=== PATIENT | female | born 1950 | race Caucasian/White ===

== ENCOUNTER 2018-01-18 08:06 | Outpatient (REF) | payer MEDICARE, BC, SELFPAY ==
[2018-01-18 21:15] LABS: Cholesterol 226 mg/dL (50-200); HDL Cholesterol 54 mg/dL (40-60); LDL CHOLESTEROL 160 mg/dL (<100); Triglyceride 82 mg/dL (30-150)
== END 2018-01-18 08:26 ==
LOC: NCHCN 08:06
PROVIDERS: PCP Internal Medicine; Visit Provider Internal Medicine
DX: E78.5 Hyperlipidemia, unspecified (principal)
CPT/HCPCS: 80061; 83721

== ENCOUNTER 2020-01-03 08:51 | Outpatient (REF) | payer MEDICARE, BC, SELFPAY ==
[2020-01-03 22:45] LABS: Calculated LDL 104 mg/dL (<100); Cholesterol 174 mg/dL (<200); Glucose 103 mg/dL (74-106); HDL Cholesterol 48 mg/dL (40-60); Triglyceride 113 mg/dL (<150)
== END 2020-01-03 09:11 ==
LOC: NCHCN 08:51
PROVIDERS: PCP Internal Medicine; Visit Provider Internal Medicine
DX: E78.5 Hyperlipidemia, unspecified (principal)
CPT/HCPCS: 80061; 82947

== ENCOUNTER 2020-02-09 14:14 | Outpatient (REF) | payer MEDICARE, BC, SELFPAY ==
[2020-02-13 21:52] LABS: Patient Race White; SARS-CoV-2 RNA Undetected (Undetected); SARS-CoV-2 Specimen Source Nasal
== END 2020-02-09 14:34 ==
LOC: NCHCN 14:14
PROVIDERS: PCP Internal Medicine; Visit Provider Internal Medicine
DX: Z11.59 Encounter for screening for other viral diseases (principal)
CPT/HCPCS: U0003

== ENCOUNTER 2020-06-22 08:19 | Outpatient (REF) | payer MEDICARE, BC, SELFPAY ==
[2020-06-22 13:50] LABS: Glucose 100 mg/dL (74-106)
== END 2020-06-22 08:20 | disposition home or self-care (01) ==
LOC: NCHCN 08:19
PROVIDERS: PCP Internal Medicine; Visit Provider Internal Medicine
DX: R73.01 Impaired fasting glucose (principal)
CPT/HCPCS: 82947

== ENCOUNTER 2020-12-27 09:38 | Outpatient (REF) | payer MEDICARE, BC, SELFPAY ==
[2020-12-27 14:27] LABS: Anion Gap 4.8 mmol/L (3-11); BUN 18 mg/dL (7-18); CO2 30.2 mmol/L (21.0-32.0); CREATININE 0.8 mg/dL (0.55-1.02); Calculated LDL 141 mg/dL (<100); Chloride 106 mmol/L (98-107); Cholesterol 211 mg/dL (<200); Glucose 96 mg/dL (74-106); HDL Cholesterol 53 mg/dL (40-60); Potassium 4.4 mmol/L (3.5-5.1); Sodium 141 mmol/L (136-145); Triglyceride 86 mg/dL (<150)
[2020-12-27 14:45] LABS: Vitamin D 25 Total 39.3 ng/mL (30-100)
== END 2020-12-27 09:39 | disposition home or self-care (01) ==
LOC: NCHCN 09:38
PROVIDERS: PCP Internal Medicine; Visit Provider Internal Medicine
DX: R73.01 Impaired fasting glucose (principal); E78.5 Hyperlipidemia, unspecified; M81.0 Age-related osteoporosis without current pathological fracture
CPT/HCPCS: 80048; 80061; 82306

== ENCOUNTER 2023-01-23 13:40 | Outpatient (REF) | payer MEDICARE, SELFPAY ==
[2023-01-23 14:47] LABS: BUN 17 mg/dL (7-18); CREATININE 0.9 mg/dL (0.55-1.02); Calcium 9.5 mg/dL (8.5-10.1); Calculated LDL 142 mg/dL (<100); Chloride 105 mmol/L (98-107); Cholesterol 215 mg/dL (<200); Estimated GFR 67.08 (mL/min/1.73m2); Glucose 108 mg/dL (74-106); HDL Cholesterol 58 mg/dL (40-60); Potassium 4.5 mmol/L (3.5-5.1); Sodium 140 mmol/L (136-145); Triglyceride 79 mg/dL (<150)
[2023-01-23 15:09] LABS: Vitamin D 25 Total 33.5 ng/mL (30-100)
== END 2023-01-23 13:41 | disposition home or self-care (01) ==
LOC: NCHCN 13:40
PROVIDERS: PCP Internal Medicine; Visit Provider Family Medicine
DX: E78.5 Hyperlipidemia, unspecified (principal); R73.01 Impaired fasting glucose; Z00.00 Encounter for general adult medical examination without abnormal findings; E55.9 Vitamin D deficiency, unspecified
CPT/HCPCS: 80048; 80061; 82306

== ENCOUNTER 2023-04-07 12:54 | Outpatient (REF) | payer MEDICARE, SELFPAY ==
--- OUTSIDE RECORDS SUMMARY | 2023-04-07 12:56 | XMS_ITS | CCD ---
Author Name Unknown Address [address] [place] [address] [id number] Organization Unknown Address [address] [place], [place] [id number] Care Team Providers Care Road Worker Name Role Phone BURT HAGAN Attending Physician [phone] BURT HAGAN Roundmelinda (Secondary) Physici an [phone] Vital Signs Unknown or Not Available. Allergies Allergy Code Allergy Type Reaction Status MELATONIN 6711 Drug allergy RASH Active Procedures Unknown or Not Available. History of Immunizations Unknown or Not Available. Problems Unknown or Not Available. Results Unknown or Not Available. Active Medications Unknown or Not Available. Medications Administered During Visit Unknown or Not Available. Encounters Encounter Diagnosis Diagnosis Code Start Date Pain in right shoulder [id number] 3 Social History Smoking Status Code Start Date End Date Never smoker [id number] Patient Decision Aids Unknown or Not Available. Discharge Instructions You were admitted to [facility] on 07/22/2022 00:00 with a principal diagnosis of Pain in right shoulder You were discharged from [facility] on 07/22/2022 00:00 Should you have any questions prior to discharge, please contact a member of your healthcare team. If you have left the hospital and have any questions, please contact your primary care physician. Chief Complaint and Reason For Visit Unknown or Not Available. Function Status Unknown or Not Available. Plan of Care Unknown or Not Available. Referral/Transition of Care Unknown or Not Available.
--- OUTSIDE RECORDS SUMMARY | 2023-04-07 12:56 | XMS_ITS | CCD ---
Author Name Unknown Address [address] [place] [address] [id number] Organization Unknown Address [address] [place] [address] [phone] Care Team Providers Care Meat And Seafood Clerk Name Role Phone SCOOBY MITCHELL Attending Physician [phone] Vital Signs Unknown or Not Available. Allergies Allergy Code Allergy Type Reaction Status MELATONIN 6711 Drug allergy RASH Active Procedures Unknown or Not Available. History of Immunizations Unknown or Not Available. Problems Unknown or Not Available. Results Unknown or Not Available. Active Medications Unknown or Not Available. Medications Administered During Visit Unknown or Not Available. Encounters Encounter Diagnosis Diagnosis Code Start Date Other low back pain M5459 09/17/2022 Social History Smoking Status Code Start Date End Date Never smoker [id number] Patient Decision Aids Unknown or Not Available. Discharge Instructions You were admitted to [facility] on 09/17/2022 14:27 with a principal diagnosis of Other low back pain You were discharged from [facility] on 09/17/2022 13:38 Should you have any questions prior to [...]
--- OUTSIDE RECORDS SUMMARY | 2023-04-07 12:56 | XMS_ITS | CCD ---
Author Name Unknown Address [address] [place] [address] [id number] Organization Unknown Address [address] [place] [address] [id number] Care Team Providers Care Tobacco Packing Machine Operator Name Role Phone LENNY BHAT Attending Physician [phone] LENNY BHAT Rounding (Secondary) Physician [phone] Vital Signs Unknown or Not Available. Allergies Allergy Code Allergy Type Reaction Status MELATONIN 6711 Drug allergy RASH Active Procedures Unknown or Not Available. History of Immunizations Unknown or Not Available. Problems Unknown or Not Available. Results Unknown or Not Available. Active Medications Unknown or Not Available. Medications Administered During Visit Unknown or Not Available. Encounters Encounter Diagnosis Diagnosis Code Start Date Artificial knee joint present [id number] Social History Smoking Status Code Start Date End Date Never smoker [id number] Patient Decision Aids Unknown or Not Available. Discharge Instructions You were admitted to [facility] on 10/30/2022 00:00 with a principal diagnosis of Presence of right artificial knee joint You were discharged from [facility] on 10/30/2022 00:00 Should you have any questions prior [...]
--- OUTSIDE RECORDS SUMMARY | 2023-04-07 12:57 | XMS_ITS | CCD ---
Author Name Unknown Address [address] [place] [address] [id number] Organization Unknown Address [address] [place] [address] [phone] Care Team Providers Care Biopsychologist Name Role Phone BENTLEY BURT L Attending Physician [phone] Vital Signs Unknown or Not Available. Allergies [...] Code Start Date Pain in right shoulder W85651 3 Social History Smoking Status Code Start Date End Date Never smoker [id number] Patient Decision Aids Unknown or Not Available. Discharge Instructions You were admitted to [facility] on 04/29/2022 12:40 with a principal diagnosis of Pain in right shoulder You were discharged from [facility] on 06/03/2022 09:20 Should you have any questions prior to [...]
--- OUTSIDE RECORDS SUMMARY | 2023-04-07 12:57 | XMS_ITS | CCD ---
Author Name Unknown Address [address] [place] [address] [id number] Organization Unknown Address [address] [place] [address] [phone] Care Team Providers Care Livestock Commission Agent Name Role Phone MK TORRES Attending Physician [phone] MK TORRES Rounding (Secondary) Physician [phone] Vital Signs Unknown or Not Available. Allergies [...] Code Start Date Artificial knee joint present [id number] Social History Smoking Status Code Start Date End Date Never smoker [id number] Patient Decision Aids Unknown or Not Available. Discharge Instructions You were admitted to [facility] on 01/09/2022 09:33 with a principal diagnosis of Presence of right artificial knee joint You were discharged from [facility] on 01/09/2022 00:00 Should you have any questions prior [...]
--- OUTSIDE RECORDS SUMMARY | 2023-04-07 12:57 | XMS_ITS | CCD ---
Author Name Unknown Address [address] [place] [address] [id number] Organization Unknown Address [address] [place] [address] [phone] Care Team Providers Care Airplane Technician Name Role Phone BENTLEYBRYANTMARTY Guy Attending Physician [phone] Vital Signs Unknown or Not Available. Allergies Allergy Code Allergy Type Reaction Status MELATONIN 6711 Drug allergy RASH Active Procedures Unknown or Not Available. History of Immunizations Unknown or Not Available. Problems Unknown or Not Available. Results Unknown or Not Available. Active Medications Unknown or Not Available. Medications Administered During Visit Unknown or Not Available. Encounters Encounter Diagnosis Diagnosis Code Start Date Abnormal findings on diagnos tic imaging of other parts of musculoskeletal system R937 07/09/2022 Social History Smoking Status Code Start Date End Date Never smoker [id number] Patient Decision Aids Unknown or Not Available. Discharge Instructions You were admitted to [facility] on 07/09/2022 08:49 with a principal diagnosis of Abnormal findings on diagnostic imaging of other parts of musculoskeletal system You were discharged from [facility] on 07/09/2022 08:49 Should you have any questions prior to discharge, please contact a member of your healthcare team. If you have left the hospital and have any questions, please contact your primary care physician. Chief Complaint and Reason For Visit Chief Complaint Date of Onset RT SHOULDER PAIN Function Status Unknown or Not Available. Plan of Care Unknown or Not Available. Referral/Transition of Care Unknown or Not Available.
--- OUTSIDE RECORDS SUMMARY | 2023-04-07 12:57 | XMS_ITS | CCD ---
Author Name Unknown Address [address] [place] [address] [id number] Organization Unknown Address [address] [place] [address] [phone] Care Team Providers Care Boat Engines Installer Name Role Phone PEDRO PORTILLO Attending Physician [phone] Vital Signs Unknown or Not Available. Allergies Allergy Code Allergy Type Reaction Status MELATONIN 6711 Drug allergy RASH Active Procedures Unknown or Not Available. History of Immunizations Unknown or Not Available. Problems Unknown or Not Available. Results Unknown or Not Available. Active Medications Unknown or Not Available. Medications Administered During Visit Unknown or Not Available. Encounters Encounter Diagnosis Diagnosis Code Start Date Unilateral primary osteoarthritis, right knee M1 711 01/09/2022 Social History Smoking Status Code Start Date End Date Never smoker [id number] Patient Decision Aids Unknown or Not Available. Discharge Instructions You were admitted to [facility] on 01/09/2022 19:37 with a principal diagnosis of Unilateral primary osteoarthritis, right knee You were discharged from [facility] on 01/09/2022 19:37 Should you have any questions prior to discharge, please contact a member of your healthcare team. If you have left the hospital and have any questions, please contact your primary care physician. Chief Complaint and Reason For Visit Chief Complaint Date of Onset OA RT KNEE Function Status Unknown or Not Available. Plan of Care Unknown or Not Available. Referral/Transition of Care Unknown or Not Available.
--- OUTSIDE RECORDS SUMMARY | 2023-04-07 12:57 | XMS_ITS | CCD ---
Author Name Unknown Address [address] [place] [address] [phone] Organization Unknown Address [address] [place] [address] [phone] Care Team Providers Care Physical Anthropologist Name Role Phone LENNY BHAT Attending Physician [phone] Vital Signs Unknown or Not Available. Allergies Allergy Code Allergy Type Reaction Status MELATONIN 6711 Drug allergy RASH Active Procedures Unknown or Not Available. History of Immunizations Unknown or Not Available. Problems Unknown or Not Available. Results Unknown or Not Available. Active Medications Unknown or Not Available. Medications Administered During Visit Unknown or Not Available. Encounters Encounter Diagnosis Diagnosis Code Start Date Refusal of treatment by patient [id number] 09/30/2021 Social History Smoking Status Code Start Date End Date Never smoker [id number] Patient Decision Aids Unknown or Not Available. Discharge Instructions You were admitted to [facility] on 09/30/2021 01:15 with a principal diagnosis of Procedure and treatment not carried out because of patient's decision for other reasons You were discharged from [facility] on 09/30/2021 01:16 Should you have any questions prior to [...]
--- OUTSIDE RECORDS SUMMARY | 2023-04-07 12:58 | XMS_ITS | CCD ---
Author Name Unknown Address [address] [place] [address] [id number] Organization Unknown Address [address] [place] [address] [phone] Care Team Providers Care Pack Out Operator Name Role Phone LENNY BHAT Attending Physician [phone] Vital Signs Vital Sign Value Unit Date/Time Recent/Initial ? BMI (Body Mass Index) 26.95 kg/m^2 09/24/2021 09: 59 Initial VS Weight Measured 155.8 lbs 09/24/2021 09:59 Ini tial VS Height 63.75 in 09/24/2021 09:59 Initial VS BSA (Body Surface Area) 1.78 m^2 09/24/2021 0 9:59 Initial VS BP Systolic 139 mmHg 09/30/2021 15:21 Initial VS BP Diastolic 65 mmHg 09/30/2021 15:21 Initia l VS Respiratory Rate 14 bpm 09/30/2021 15:21 In itial VS Heart Rate 51 bpm 09/30/2021 15:21 Initial VS O2 % BldC Oximetry 100 % 09/30/2021 15:21 Initial VS Body Temperature 36.1 degrees 09/30/2021 15:21 In itial VS Allergies Allergy Code Allergy Type Reaction Status MELATONIN 6711 Drug allergy RASH Active Procedures Procedure Code Procedure Type Date Arthroplasty, Knee, Condyle & Plateau; Medial/Lateral Compartment 37409 CPT 09/30/2021 Surgical Techniques Requirin g Use Of Robotic Surgical System (List In Addition To Primary Procedure) S2900 CPT 09/30/2021 Injection Anesthetic Agent a nd/or Steroid; Femoral Nerve 63620 CPT 09/30/2021 Anesthesia, Open/Surg Arthro scopic Proc, Knee Joint; NOS 22741 CPT 09/30/2021 History of Immunizations Unknown or Not Available. Problems Unknown or Not Available. Results Unknown or Not Available. Active Medications Medications Administered During Visit Medication Dose Units Frequency Route Date/Time of Last Dose LACTATED RINGERS 1000ML 1000 ML X1 09/30/2021 10:01 MIDAZOLAM INJ SDV: 2MG/2ML 2 MG X1 IVP 09/30/2021 10:44 MIDAZOLAM INJ SDV: 2MG/2ML 1 MG X1 IVP 09/30/2021 11:20 CeFAZolin IVPB FROZEN PREMIX : 2GM/100ML 2 GM X1 09/30/2021 11:2 4 PREGABALIN CAPSULE: 50MG 100 MG X1 PO 09/30/2021 10:00 ACETAMINOPHEN TABLET: 325MG 975 MG X1 PO 09/30/2021 10:00 MELOXICAM TAB: 7.5MG 7.5 MG X1 PO 09/30/2021 10:00 KETOROLAC INJ SDV: 30MG/1ML 15 MG X1 IV P 09/30/2021 15:39 CeFAZolin IVPB FROZEN PREMIX : 2GM/100ML 2 GM X1 09/30/2021 15:4 7 DexAMETHasone INJ SDV PF: 10MG/1ML 10 MG X1 IVP 09/30/2021 15:39 Encounters Encounter Diagnosis Diagnosis Code Start Date Unilateral primary osteoarthritis, right knee M1 711 09/30/2021 Social History Smoking Status Code Start Date End Date Never smoker [id number] Patient Decision Aids Unknown or Not Available. Discharge Instructions You were admitted to [facility] on 09/30/2021 09:16 with a principal diagnosis of Unilateral primary osteoarthritis, right knee You had the following procedures done:Arthroplasty, Knee, Condyle & Plateau; Medial/Lateral CompartmentSurgical Techniques Requiring Use Of Robotic Surgical System (List In Addition To Primary Procedure)Injection Anesthetic Agent and/or Steroid; Femoral NerveAnesthesia, Open/Surg Arthroscopic Proc, Knee Joint; NOS You were discharged from [facility] on 09/30/2021 16:20 Should you have any questions prior to discharge, please contact a member of your healthcare team. If you have left the hospital and have any questions, please contact your primary care physician. Chief Complaint and Reason For Visit Chief Complaint Date of Onset RIGHT PARTIAL KNEE [facility]HE[facility]LA [facility] PERRY AND NEPHEW WITH CORI 120MIN OP Function Status Unknown or Not Available. Plan of Care Unknown or Not Available. Referral/Transition of Care Unknown or Not Available.
--- OUTSIDE RECORDS SUMMARY | 2023-04-07 12:58 | XMS_ITS | CCD ---
Author Name Unknown Address [address] [place] [address] [id number] Organization Unknown Address [address] [place] [address] [phone] Care Team Providers Care Business Operations Coordinator Name Role Phone PEDRO PORTILLO Attending Physician [phone] PEDRO PORTILLO Rounding (Secondary) Physician [phone] Vital Signs Unknown or Not Available. Allergies Allergy Code Allergy Type Reaction Status MELATONIN 6711 Drug allergy RASH Active Procedures Unknown or Not Available. History of Immunizations Unknown or Not Available. Problems Unknown or Not Available. Results Unknown or Not Available. Active Medications Unknown or Not Available. Medications Administered During Visit Unknown or Not Available. Encounters Encounter Diagnosis Diagnosis Code Start Date Idiopathic osteoarthritis [id number] 2021 Social History Smoking Status Code Start Date End Date Never smoker [id number] Patient Decision Aids Unknown or Not Available. Discharge Instructions You were admitted to [facility] on 05/13/2021 13:25 with a principal diagnosis of Unilateral primary osteoarthritis, right knee You were discharged from [facility] on 05/13/2021 00:00 Should you have any questions prior [...]
--- OUTSIDE RECORDS SUMMARY | 2023-04-07 12:58 | XMS_ITS | CCD ---
Author Name Unknown Address [address] [place] [address] [id number] Organization Unknown Address [address] [place], [place] [phone] Care Team Providers Care Clinic Nurse Name Role Phone TUNG WHITE Attending Physician [phone] TUNG WHITE Rounding (Secondary) Physici an [phone] Vital Signs Unknown or Not Available. Allergies Allergy Code Allergy Type Reaction Status MELATONIN 6711 Drug allergy RASH Active Procedures Unknown or Not Available. History of Immunizations Unknown or Not Available. Problems Unknown or Not Available. Results Unknown or Not Available. Active Medications Unknown or Not Available. Medications Administered During Visit Unknown or Not Available. Encounters Encounter Diagnosis Diagnosis Code Start Date Encounter for follow-up exam ination after completed treatment for malignant neoplasm Z08 10/29/2021 Social History Smoking Status Code Start Date End Date Never smoker [id number] Patient Decision Aids Unknown or Not Available. Discharge Instructions You were admitted to on 10/29/2021 18:03 with a principal diagnosis of Encounter for follow-up examination after completed treatment for malignant neoplasm You were discharged from on 10/29/2021 00:00 Should you have any questions prior [...]
--- OUTSIDE RECORDS SUMMARY | 2023-04-07 12:58 | XMS_ITS | CCD ---
Author Name Unknown Address [address] [place] [address] [id number] Organization Unknown Address [address] [place] [address] [phone] Care Team Providers Care Access Rep Name Role Phone CHAZ JOSEPH Attending Physician [phone] CHAZ JOSEPH Rounding (Secondary) Physician [phone] Vital Signs Unknown or Not Available. Allergies [...] Diagnosis Diagnosis Code Start Date Idiopathic osteoarthritis [id number] 2021 Social History Smoking Status Code Start Date End Date Never smoker 360396809 Patient Decision Aids Unknown or Not Available. Discharge Instructions You were admitted to [facility] on 06/19/2021 14:36 with a principal diagnosis of Unilateral primary osteoarthritis, right knee You were discharged from [facility] on 06/19/2021 00:00 Should you have any questions prior [...]
--- OUTSIDE RECORDS SUMMARY | 2023-04-07 12:58 | XMS_ITS | CCD ---
Author Name Unknown Address [address] [place] [address] [id number] Organization Unknown Address [address] [place] [address] [phone] Care Team Providers Care Police Service Technician Name Role Phone LENNY BHAT Attending Physician [phone] LENNY BHAT Rounding (Secondary) Physician [phone] Vital Signs Unknown or Not Available. Allergies [...] Diagnosis Diagnosis Code Start Date Idiopathic osteoarthritis [id number] 2021 Social History Smoking Status Code Start Date End Date Never smoker 829545227 Patient Decision Aids Unknown or Not Available. Discharge Instructions You were admitted to [facility] on 07/30/2021 14:21 with a principal diagnosis of Unilateral primary osteoarthritis, right knee You were discharged from [facility] on 07/30/2021 00:00 Should you have any questions prior [...]
--- OUTSIDE RECORDS SUMMARY | 2023-04-07 12:59 | XMS_ITS | CCD ---
Author Name Unknown Address [address] [place] [address] [id number] Organization Unknown Address [address] [place] [address] [phone] Care Team Providers Care Boiler Tube Blower Name Role Phone RM BA Attending Physician [phone] Vital Signs Unknown or Not Available. Allergies [...] Diagnosis Code Start Date Pain in right knee I62596 12/11/2020 Social History Smoking Status Code Start Date End Date Never smoker [id number] Patient Decision Aids Unknown or Not Available. Discharge Instructions You were admitted to [facility] on 12/11/2020 11:28 with a principal diagnosis of Pain in right knee You were discharged from [facility] on 12/18/2020 11:28 Should you have any questions prior to [...]
--- OUTSIDE RECORDS SUMMARY | 2023-04-07 12:59 | XMS_ITS | CCD ---
Author Name Unknown Address [address] [place] [address] [id number] Organization Unknown Address [address] [place] [address] [phone] Care Team Providers Care Flight Engineer Performance Qualified Name Role Phone CHAZ JOSEPH Attending Physician [phone] CHAZ JOSEPH Rounding (Secondary) Physician [phone] Vital Signs Unknown or Not Available. Allergies [...] Code Start Date Pain in right knee R48101 03/06/2021 Social History Smoking Status Code Start Date End Date Never smoker [id number] Patient Decision Aids Unknown or Not Available. Discharge Instructions You were admitted to [facility] on 03/06/2021 16:13 with a principal diagnosis of Pain in right knee You were discharged from [facility] on 03/06/2021 00:00 Should you have any questions prior [...]
--- OUTSIDE RECORDS SUMMARY | 2023-04-07 12:59 | XMS_ITS | CCD ---
Author Name Unknown Address [address] [place] [address] [id number] Organization Unknown Address [address] [place] [address] [phone] Care Team Providers Care Location Manager Name Role Phone RM BA Attending Physician [phone] Vital Signs Unknown or Not Available. Allergies [...] Unilateral primary osteoarthritis, right knee M1 711 11/20/2020 Social History Smoking Status Code Start Date End Date Never smoker [id number] Patient Decision Aids Unknown or Not Available. Discharge Instructions You were admitted to [facility] on 11/20/2020 10:31 with a principal diagnosis of Unilateral primary osteoarthritis, right knee You were discharged from [facility] on 11/20/2020 10:31 Should you have any questions prior to [...]
[2023-04-07 21:29] LABS: HGB 13.8 g/dL (11.2-15.7); MCH 30.7 pg (27.0-33.0); MCHC 32.9 % (32.0-36.0); MCV 93 fL (80-95); MPV 11.7 fL (8.0-11.0); Platelet Count 247 10^3/uL (130-400); RDW 13.7 % (11.7-14.6); WBC 5.17 10^3/uL (4.4-10.8)
[2023-04-07 21:47] LABS: Anion Gap 8.1 mmol/L (3-11); BUN 21 mg/dL (7-18); CO2 27.9 mmol/L (21.0-32.0); CREATININE 0.9 mg/dL (0.55-1.02); Calcium 10.2 mg/dL (8.5-10.1); Chloride 105 mmol/L (98-107); Estimated GFR 67.08 (mL/min/1.73m2); Glucose 113 mg/dL (74-106); Potassium 4.5 mmol/L (3.5-5.1); Sodium 141 mmol/L (136-145); TSH (W/Ref FT4) 1.41 uIU/mL (0.36-3.74)
== END 2023-04-07 12:55 | disposition home or self-care (01) ==
LOC: NCHCN 12:54
PROVIDERS: PCP Internal Medicine; Visit Provider Family Medicine
DX: R55 Syncope and collapse (principal); E78.5 Hyperlipidemia, unspecified
CPT/HCPCS: 80048; 85027; 84443

== ENCOUNTER 2024-04-19 07:57 | Outpatient (REF) | payer MEDICARE, SELFPAY ==
--- OUTSIDE RECORDS SUMMARY | 2024-04-19 07:59 | XMS_ITS | Continuity of Care Document ---
Author Organization [facility] Address [address] [place] [address] Care Team Providers Care Lastex Operator Name Role Phone Millie Hilton Primary Care Physician Encounter [facility] Date(s): 10/14/23 - 10/14/23 [facility] [address] [place] [address] Discharge Disposition: Home Allergies, Adverse Reactions, Alerts Substance Reaction Severity Status melatonin Unknown Active Tobacco Unknown Active Cat Hair Unknown Active Assessment and Plan Future Appointments Medications calcium carbonate 500 mg (200 mg elemental calcium) oral tablet, chewable 500 mg = 1 tab, Chewed, BID, # 60 tab, 0 Refill(s) Start Date: 10/08/23 Status: Ordered Eylea 0 Refill(s) Start Date: 10/08/23 Status: Ordered Fish Oil oral capsule 1 cap, Oral, Daily, # 100 cap, 0 Refill(s) Start Date: 10/08/23 Status: Ordered glycine 0 Refill(s) Start Date: 10/08/23 Status: Ordered magnesium glycinate 200 mg oral tablet 0 Refill(s) Start Date: 10/08/23 Status: Ordered Multi Vitamin+ 0 Refill(s) Start Date: 10/08/23 Status: Ordered Prolia 60 mg/mL subcutaneous solution 60 mg = 1 mL, Subcutaneous, every 6 mo, # 1 mL, 0 Refill(s) Start Date: 10/08/23 Status: Ordered Tylenol 325 mg oral capsule 325 mg = 1 cap, Oral, every 4 hr, PRN as needed for fever, # 20 cap, 0 Refill(s) Start Date: 10/08/23 Status: Ordered Vitamin B Complex 100 0 Refill(s) Start Date: 10/08/23 Status: Ordered Problem List Condition Confirmation Course Effective Dates Status H ealth Status Informant Breast mass, right Confirmed Active Macular degeneration, wet Confirmed Active History of malignant neoplasm of right breast Confirmed Active Status post right partial knee replacement Confirmed Active HLD (hyperlipidemia) Confirmed Active MICHELLE (obstructive sleep apnea) Confirmed Active Osteoarthritis of right knee Confirmed Active Osteoporosis Confirmed Active Rotator cuff tear Confirmed Active Social History Social History Type Response Tobacco Never tobacco user T obacco Use:. Sex Patient Care team information Care Team Personnel Name: Millie Hilton MD Position: No Access Member Role: Primary Care Physician
--- OUTSIDE RECORDS SUMMARY | 2024-04-19 07:59 | XMS_ITS | Continuity of Care Document ---
Author Organization [facility] Address [address] [place] [address] Care Team Providers Care Correctional Agency Director Name Role Phone Millie Hilton Primary Care Physician Encounter [facility] Date(s): 03/10/24 - 03/10/24 [facility] [address] [place] [address] Encounter Diagnosis Obstructive sleep apnea(Discharge Diagnosis) - 03/10/24 Obstructive sleep apnea (adult) (pediatric)(Final) - Discharge Disposition: Home or Self Care Attending Physician: Maddy Collins NP Referring Physician: Millie Hilton MD Encounter Type: Clinic Allergies, Adverse Reactions, Alerts Substance Criticality Severity Reaction Reaction Severity Status melatonin Unable to assess criticality Unknown Active Tobacco Unable to assess criticality Unknown Active Cat Hair Unable to assess criticality Unknown Active Assessment and Plan Extracted from: Title:Sleep Clinic - Office Visit Note Author:Maddy Luong NP Date:03/10/24 1.??Obstructive sleep apnea? ?G47.33 I provided greater than??30??minutes in the care of this patient, more than half the time was spent in xiez-lm-diay counseling. ? JEFFERY IRELAND??is a pleasant??73 year old?female??here for??sleep follow up. ??with comorbidities of?? 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 Clinical Data Reviewed: [place] Sleepiness Scale: 07/14 (03/10/24) ?? [place] Sleepiness Scale: 02/13(02/03/24) [place] Sleepiness Scale: (10/14/23) ? Machine Download Data:??Resmed AirSense 11 Auto CPAP?? PAP Settings: ?? Auto CPAP??5 to 15?? CmH2O Date Range:?02/09/24 - 03/09/24 Days with Usage >=4 hours:?? 90% Avg Usage per Day Used:?? 7hr 18min Mean/Median Pressure:?8.2 90th-tile/95th-tile Pressure:?? 10.9? Median-90th%tile Leak?? 2.4/32.2 Avg Treatment ??AHI:?? 3.4/hr ? Sleep Clinical Timeline:? 04/15/2023 - 04/29/2023: Holter Monitor. Baseline rhythm sinus. Rare single PAC. 3 runs SVT, longest 11 beat duration fastest 136bpm. Rare single PVC. No VT. ?? 06/19/2023: Echocardiogram. LVEF 65%. Normal size and wall thickness. Right ventricle normal size and function. Left atrium moderately dilated. Small incidental PFO with left to right shunt. Aortic valve trileaflet. PA pressures 20-25mmHg.? 10/14/2023:??New patient sleep consult at the kind request of Dr. Ko (cardiology).??Suspect Obstructive Sleep Apnea based on??snoring, waking up gasping for air, choking, frequent nocturnal awakenings, nocturia, nonrestorative sleep, excessive daytime sleepiness, neurocognitive changes, drowsy driving, Mallampati 4, ESS 19/24, [place] Questionnaire 2 out of 3 positive categories. Ordered diagnostic PSG. ?? 01/03/2024: Diagnostic PSG.??Wt.: 144 lbs. ??BMI = 24.71 kg/m2.?? IMPRESSION: 1.??Mild Obstructive Sleep Apnea, Moderate in REM sleep 2.??Overall AHI: 5.2/hr; Overall RDI: 10.1/hr; REM AHI: 14.9/hr; Supine AHI: 16/hr; Right Lateral AHI:4 /hr; Left Lateral AHI: 8/hr; Prone AHI: 0/hr. 3.??Mean SpO2: 93% and Juarez SpO2: 87% on Room Air; 2.7 minutes spent with SpO2 less than or equal to 88% on Room Air. ?? 02/03/2024: f/u PSG results. start auto cpap??5-15 cm H20, order sent to [facility] ?? 03/10/2024: CPAP f2f. Pt has acclimated very well to CPAP, 90% compliance and tx??AHI 3.4/hr. She has no complaints about her cpap so far. Patient is using and benefitting from??CPAP?therapy.?She is sleeping better at night and has more daytime energy. She was fit with a ?Dreamwear Medium??Nasal Mask??that fits well for her. She took her machine with her for a 2 week biking trip in [place]. Adjusted settings in office to auto CPAP 6 to 12cm h20 to reflect pressures on DL data. EPR 2. ? Mask: Dreamwear Medium??Nasal Mask Settings: Auto CPAP 6 to 12cm H20 DME: [employer] ? Today's Assessment and Plan: ?? New cpap user??f2f. Download data reviewed and??discussed??with the??patient.??She has fantastic compliance right away,??90% and using it every??night. She has met her insurance compliance requirements.??treatment AHI??3.4/hr??on auto CPAP 5??to 15cm??H20.??She has a mild to??moderate??air??leak which she reports is from??when??she??sleeps with??her arm under her head, which??pushes??her mask??to the??side a bit and??causes??the air??to leak.??No complaints of air intolerance or air hunger. Adjusted pressures to reflect median pressures on DL data. ?? Machine??settings reviewed in office. Smart??Start/Stop??enabled.??EPR 2, humidity 4.? Follow up: ?? 1 year or sooner if needed. ? Remote Scribed by Ketan Francois ? Addendum by Malena Collins NP on March 11, 2024 11:09:17 EST patient contacted our office and requested that cpap pressures be adjusted back to auto cpap 5-15 cm H20, (she did not tolerate pressure changed to auto cpap 8-12 cm H2o) Future Appointments Medications calcium carbonate 500 mg (200 mg elemental calcium) oral tablet, chewable 500 mg = 1 tab, Chewed, BID, # 60 tab, 0 Refill(s) Start Date: 10/08/23 Status: Ordered Quantity: 60.0 Unit: tab Repeat number: 1 Eylea 0 Refill(s) Start Date: 10/08/23 Status: Ordered Repeat number: 1 Fish Oil oral capsule 1 cap, Oral, Daily, # 100 cap, 0 Refill(s) Start Date: 10/08/23 Status: Ordered Quantity: 100.0 Unit: cap Repeat number: 1 glycine 0 Refill(s) Start Date: 10/08/23 Status: Ordered Repeat number: 1 magnesium glycinate 200 mg oral tablet 0 Refill(s) Start Date: 10/08/23 Status: Ordered Repeat number: 1 Multi Vitamin+ 0 Refill(s) Start Date: 10/08/23 Status: Ordered Repeat number: 1 Prolia 60 mg/mL subcutaneous solution 60 mg = 1 mL, Subcutaneous, every 6 mo, # 1 mL, 0 Refill(s) Start Date: 10/08/23 Status: Ordered Quantity: 1.0 Unit: mL Repeat number: 1 rosuvastatin 10 mg oral capsule 10 mg = 1 cap, Oral, Daily, # 30 cap, 0 Refill(s) Start Date: 02/03/24 Status: Ordered Quantity: 30.0 Unit: cap Repeat number: 1 Tylenol 325 mg oral capsule 325 mg = 1 cap, Oral, every 4 hr, PRN as needed for fever, # 20 cap, 0 Refill(s) Start Date: 10/08/23 Status: Ordered Quantity: 20.0 Unit: cap Repeat number: 1 Vitamin B Complex 100 0 Refill(s) Start Date: 10/08/23 Status: Ordered Repeat number: 1 Problem List Condition Confirmation Course Effective Dates Status H ealth Status Informant Breast mass, right Confirmed Active Macular degeneration, wet Confirmed Active History of malignant neoplasm of right breast Confirmed Active Status post right partial knee replacement Confirmed Active HLD (hyperlipidemia) Confirmed Active MICHELLE (obstructive sleep apnea) Confirmed Active Obstructive sleep apnea Confirmed Active Osteoarthritis of right knee Confirmed Active Osteoporosis Confirmed Active Rotator cuff tear Confirmed Active Vital Signs Most recent to oldest [Reference Range]: 1 Peripheral Pulse Rate [60-100 bpm] 45 bp m *LOW* (03/10/24 2:13 PM) Blood Pressure [90-120/60-80 mmHg] 137/6 5mmHg *HI* (03/10/24 2:13 PM) Mean Arterial Pressure, Cuff [65-140 mmH g] 89 mmHg (03/10/24 2:13 PM) Weight 66.22 kg (03/10/24 2:13 PM) Weight Measured (lbs) 145.99 lb (03/10/24 2:13 PM) Weight Dosing 66.220 kg (03/10/24 2:13 PM) Height 163 cm (03/10/24 2:13 PM) Height/Length Measured (inches) 64.17 in ch (03/10/24 2:13 PM) BSA Measured 1.73 m2 (03/10/24 2:13 PM) Body Mass Index 24.92 kg/m2 (03/10/24 2:13 PM) Social History Social History Type Response Tobacco Never tobacco user T obacco Use:. Sex Sex Representation Female (finding) Progress note * Dante Mchugh M: PERFORM Event Display: Progress Note - Physician Authored Date: [id number] Physician Outpatient Note * Maddy Collins ASW/ASUW TACTICAL AIR CONTROLLER: PERFORM, MODIFY Event Display: Office Clinic Note Physician Authored Date: [id number] JEFFERY IRELAND :1950 Age:73 years Sex:Female Visit Date:03/10/2024 Primary Care Physician: Millie Hilton MD Chief Complaint new cpap user f2f History of Present Illness 73 year old??female??here for cpap f2f. ?? TODAY: Pt got her CPAP shortly after her last appt. going well with her cpap, sleeping better and more dayitme energy got acclimated very quickly. Using a nasal mask. No air leak unless she sleeps with her arm under her head and displaces the mask. Pressures are comfortable. No air intolerance or air hunger. ?? she recently went travelling for 2 weeks with a tour group to [place] to go biking in [place]and [place]. She took her machine with her. Review of Systems A 10-point REVIEW OF SYSTEM was obtained and reviewed, includes CONSTITUTIONAL, EYES, NOSE, THROAT,RESPIRATORY, HEART, GASTROINTESTINAL, UROLOGIC, MUSCULOSKELETAL, PSYCHIATRY, SKIN systems. Pertinent symptoms are discussed in history, otherwise negative. Physical Exam Vitals & Measurements HR:??45??(Peripheral)?? BP:??137/65?? SpO2:??97%?? HT:??163??cm?? WT:??66.22??kg?? BMI:??24.92?? BSA:??1.73?? General:??well appearing, appearing stated age, no acute distress,??normal??build HEENT: atraumatic skull, anicteric RESPIRATORY: quiet respiration, able to speak in full sentences without dyspnea, no accessory muscle use SKIN: no facial skin rash, no facial skin lesions PSYCHIATRIC: well groomed, fluent speech, good insight, linear thought process, good eye contact,balanced??affect NEUROLOGIC: alert, oriented, symmetric facial expression Clinic Assessment/Plan 1.??Obstructive sleep apnea??G47.33 I provided greater than??30??minutes in the care of this patient, more than half the time was spentin qxor-yi-qbkh counseling. ?? JEFFERY IRELAND??is a pleasant??73 year old?female??here for??sleep follow up. 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 Machine Download Data:??Resmed AirSense 11 Auto CPAP?? PAP Settings: ??Auto CPAP??5 to 15?? CmH2O Date Range:?02/09/24 - 03/09/24 Days with Usage >=4 hours:?? 90% Avg Usage per Day Used:?? 7hr 18min Mean/Median Pressure:?8.2 90th-tile/95th-tile Pressure:?? 10.9?? Median-90th%tile Leak?? 2.4/32.2 Avg Treatment ??AHI:?? 3.4/hr ?? Sleep Clinical Timeline:? 04/15/2023 - 04/29/2023: Holter Monitor. Baseline rhythm sinus. Rare single PAC. 3 runs SVT, longest 11 beat duration fastest 136bpm. Rare single PVC. No VT. ?? 06/19/2023: Echocardiogram. LVEF 65%. Normal size and wall thickness. Right ventricle normal size and function. Left atrium moderately dilated. Small incidental PFO with left to right shunt. Aortic valve trileaflet. PA pressures 20-25mmHg.? 10/14/2023:??New patient sleep consult at the kind request of Dr. Ko (cardiology).??Suspect Obstructive Sleep Apnea based on??snoring, waking up gasping for air, choking, frequent nocturnal awakenings, nocturia, nonrestorative sleep, excessive daytime sleepiness, neurocognitive changes, drowsy driving, Mallampati 4, ESS 19/24, [place] Questionnaire 2 out of 3 positive categories. Ordered diagnostic PSG. ?? 01/03/2024: Diagnostic PSG.??Wt.: 144 lbs. ??BMI = 24.71 kg/m2.?? IMPRESSION: 1.??Mild Obstructive Sleep Apnea, Moderate in REM sleep 2.??Overall AHI: 5.2/hr; Overall RDI: 10.1/hr; REM AHI: 14.9/hr; Supine AHI: 16/hr; Right Lateral AHI:4 /hr; Left Lateral AHI: 8/hr; Prone AHI: 0/hr. 3.??Mean SpO2: 93% and Juarez SpO2: 87% on Room Air; 2.7 minutes spent with SpO2 less than or equal to 88% on Room Air. ?? 02/03/2024: f/u PSG results. start auto cpap??5-15 cm H20, order sent to [facility] ?? 03/10/2024: CPAP f2f. Pt has acclimated very well to CPAP, 90% compliance and tx??AHI 3.4/hr. She has no complaints about her cpap so far. Patient is using and benefitting from??CPAP?therapy.?She is sleeping better at night and has more daytime energy. She was fit with a Dreamwear Medium??Nasal Mask??that fits well for her. She took her machine with her for a 2 week biking trip in [place]. Adjusted settings in office to auto CPAP 6 to 12cm h20 to reflect pressures on DL data. EPR 2. ?? Mask: Dreamwear Medium??Nasal Mask Settings: Auto CPAP 6 to 12cm H20 DME: [facility] ? Today's Assessment and Plan: New cpap user??f2f. Download data reviewed and??discussed??with the??patient.??She has fantastic compliance right away,??90% and using it every??night. She has met her insurance compliance requirements.??treatment AHI??3.4/hr??on auto CPAP 5??to 15cm??H20.??She has a mild to??moderate??air??leak which she reports is from??when??she??sleeps with??her arm under her head, which??pushes??her mask??tothe??side a bit and??causes??the air??to leak.??No complaints of air intolerance or air hunger. Adjusted pressures to reflect median pressures on DL data. ?? Machine??settings reviewed in office. Smart??Start/Stop??enabled.??EPR 2, humidity 4.? Follow up: 1 year or sooner if needed. ? Remote Scribed by Ketan Francois Problem List/Past Medical History Ongoing Breast mass, right History of malignant neoplasm of right breast HLD (hyperlipidemia) Macular degeneration, wet Obstructive sleep apnea MICHELLE (obstructive sleep apnea) Osteoarthritis of right knee Osteoporosis Rotator cuff tear Status post right partial knee replacement Historical No qualifying data Medications What How Much When Instructions Unchanged acetaminophen (Tylenol 325 mg oral capsule) 1 Capsules Oral (given by mouth) Every 4 hours as needed for as needed for fever Unchanged aflibercept ophthalmic (Eylea) Unchanged calcium carbonate (calcium carbonate 500 mg (200 mg elemental calcium) oral tablet, chewable) 1 tab Chewed 2 times a day Unchanged denosumab (Prolia 60 mg/ mL subcutaneous solution) 1 Milliliters Subcutaneous (under the skin) Every 6 months Unchanged glycine Unchanged magnesium glycinate (magnesium glycinate 200 mg oral tablet) Unchanged multivitamin (Multi Vitamin+) Unchanged multivitamin (Vitamin B Complex 100) Unchanged omega-3 polyunsaturated fatty acids (Fish Oil oral capsule) 1 Capsules Oral (given by mouth) Every day Unchanged rosuvastatin (rosuvastatin 10 mg oral capsule) 1 Capsules Oral (given by mouth) Every day Allergies Cat Hair Tobacco melatonin Social History Electronic Cigarette/Vaping Electronic Cigarette Use: Never. Tobacco Never tobacco user Tobacco Use:. Electronically Signed on 03/10/2024 15:18 EST Maddy Collins NP * Maddy Collins ASW/ASUW TACTICAL AIR CONTROLLER: PERFORM Event Display: Office Clinic Note Physician Authored Date: patient contacted our office and requested that cpap pressures be adjusted back to auto cpap 5-15 cm H20, (she did not tolerate pressure changed to auto cpap 8- 12 cm H2o) Electronically Signed on 03/11/2024 11:10 EST Maddy Collins NP Patient Care team information Care Team Personnel Name: Millie Hilton MD Position: No Access Member Role: Primary Care Physician Telecom: Insurance Providers Guarantor name: NI Health Plan Information #: 1 Payer: MEDICARE B [employer] Member Number: [id number] Policy Number: NA Group Number: NA Health Plan Information #: 2 Payer: [place] MED[place] REPLAC[place]ADVANTAGE PPO Member Number: [id number] Policy Number: ESTELAL Group Number: [id number]
--- OUTSIDE RECORDS SUMMARY | 2024-04-19 07:59 | XMS_ITS | Continuity of Care Document ---
Author Organization [facility] Address [address] [place] [address] Care Team Providers Care Occupational Therapy Technician Name Role Phone Millie Hilton Primary Care Physician Encounter [facility] Date(s): 01/03/24 - 01/03/[address] [address] Discharge Disposition: Home or Self Care Attending Physician: Maddy Collins NP Admitting Physician: Maddy Collins NP Referring Physician: Maddy Collins PREANALYTICS TEAM LEAD Allergies, Adverse Reactions, Alerts Substance Criticality Severity Reaction Reaction Severity Status melatonin Unable to assess criticality Unknown Active Tobacco Unable to assess criticality Unknown Active Cat Hair Unable to assess criticality Unknown Active Assessment and Plan Future Appointments [...] obacco Use:. Sex Sex Representation Female (finding) Patient Care team information Care Team Personnel Name: Millie Hilton MD Position: No Access Member Role: Primary Care Physician Insurance Providers Guarantor name: MAXIMO Health Plan Information #: 1 Payer[place]VANTAGE PPO Member Number: [id number] Policy Number: NA Health Plan Information #: 2 Payer: MEDICARE B [employer] Member Number: [id number] Policy Number: NA
--- OUTSIDE RECORDS SUMMARY | 2024-04-19 07:59 | XMS_ITS | Continuity of Care Document ---
Author Organization [facility] Address [address] [place] [address] Care Team Providers Care Spring Fitter Helper Name Role Phone Millie Hilton Primary Care Physician [facility] Date(s[facility] 10/14/23 - 10/14/23 [facility] [address] [place] [address] Encounter Diagnosis Procedure and treatment not carried out, unspecified reason(Final) - Discharge Disposition: Home or Self Care Attending Physician: Maddy Collins NP Referring Physician: Lui Nj MD Allergies, Adverse Reactions, Alerts Substance Reaction Severity [...]
--- OUTSIDE RECORDS SUMMARY | 2024-04-19 07:59 | XMS_ITS | Continuity of Care Document ---
Author Organization [facility] or Sleep Disorders Address [address] [place] [address] Care Team Providers Care Proj Engineer Name Role Phone Millie Hilton Primary Care Physician [phone] Encounter [facility] Date(s): 02/03/24 - 02/03/24 [facility] [address] [place] [address] Encounter Diagnosis Obstructive sleep apnea(Discharge Diagnosis) - 02/02/24 Discharge Disposition: Home or Self Care Attending Physician: Maddy Collins NP Allergies, Adverse Reactions, Alerts Substance Criticality Severity Reaction Reaction Severity Status melatonin Unable to assess criticality Unknown Active Tobacco Unable to assess criticality Unknown Active Cat Hair Unable to assess criticality Unknown Active Assessment and Plan Extracted from: Title:Clinic - Office Visit Note Author:Maddy Amanda i, NP Date:02/03/24 1.??Obstructive sleep apnea? ?G47.33 Actions: FUTURE - Follow-Up Appointment Request [facility], *Est. 04/04/24 +/- 14 days, Future Order, In Approximately, [facility] COMPLETED - Referral Management, Medical Service: RM Other, Reason: ADAPT-M, new cpap user, auto cpap 5-15 cm H20, dispense water chamber, lifetime, 99 months, Start: 02/03/24 ?? I provided greater than??30??minutes in the care of this patient, more than half the time was spent in gpma-[id number] counseling. ? JEFFERY IRELAND??is a pleasant??73 year old?female??here for??sleep follow up. ??with comorbidities of?? 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 Clinical Data Reviewed: Greig Sleepiness Scale: 02/13(02/03/24) ?? Greig Sleepiness Scale: (10/14/23) ? Sleep Clinical Timeline:? 04/15/2023 - 04/29/2023: [...] neurocognitive changes, drowsy driving, Mallampati 4, ESS , [place] Questionnaire 2 out of 3 positive categories. Ordered diagnostic PSG. ? 01/03/2024: Diagnostic PSG.??Wt.: 144 lbs. ??BMI = 24.71 kg/m2.? IMPRESSION: 1.??Mild Obstructive Sleep Apnea, Moderate in [...] auto cpap??5-15 cm H20, order sent to [facility] ? Today's Assessment and Plan: ?? We reviewed sleep study results in detail including apnea hypopnea index, positional data and oxygen data. We reviewed discussion of Obstructive Sleep Apnea, including pathophysiology, associated jail cardiovascular, neurocognitive and overall health effects, and importance of treatment. Treatment options discussed. Extensively reviewed process of starting treatment and commonly encountered problems and ways to find support and troubleshooting problems.??I discussed different mask options and the importance of finding the mask that will work for??her??within the first 30 days. I discussed how to adjust humidity for dryness/congestion and that the goal will be to use nightly for??her??total sleep time. I covered insurance compliance requirements and the [facility]'s mask exchange policy.??I will see??flor between 31-90 days after starting CPAP and??she??is encouraged to call me sooner if??she??is having any difficulties tolerating CPAP. ? Follow up: ?? 2 months or sooner if needed. ? Future Appointments Medications calcium carbonate 500 mg [...] 0 Refill(s) Start Date: 10/08/23 Status: Ordered rosuvastatin 10 mg oral capsule 10 mg = 1 cap, Oral, Daily, # 30 cap, 0 Refill(s) Start Date: 02/03/24 Status: Ordered Tylenol 325 mg oral capsule [...] Range]: 1 Peripheral Pulse Rate [60-100 bpm] 48 bp m *LOW* (02/03/24 9:28 AM) Blood Pressure [90-120/60-80 mmHg] 139/6 7mmHg *HI* (02/03/24 9:28 AM) Mean Arterial Pressure, Cuff [65-140 mmH g] 91 mmHg (02/03/24 9:28 AM) Weight 66.22 kg (02/03/24 9:28 AM) Weight Measured (lbs) 145.99 lb (02/03/24 9:28 AM) Weight Dosing 66.220 kg (02/03/24 9:28 AM) Height 163 cm (02/03/24 9:28 AM) Height/Length Measured (inches) 64.17 in ch (02/03/24 9:28 AM) BSA Measured 1.73 m2 (02/03/24 9:28 AM) Body Mass Index 24.92 kg/m2 (02/03/24 9:28 AM) Social History Social History Type Response Tobacco Never tobacco user T obacco Use:. Sex Sex Representation Female (finding) Physician Outpatient Note * Maddy Collins SAND TECHNOLOGIST: PERFORM Event Display: Office Clinic Note Physician Authored Date: [id number] JEFFERY IRELAND :1950 Age:73 years Sex:Female Visit Date:02/03/2024 Primary Care Physician: Millie Hilton MD Chief Complaint f/u PSG results History of Present Illness The patient is a pleasant 73 yr old female who f/u for the results of her PSG.? TODAY:?? Patient states she had to take ambien on the night of her sleep study, otherwise felt as though it was a typical night's sleep.?? She continues to endorse poor quality sleep, non restorative sleep and is looking forward to using a cpap machine if she qualifies. Her has a cpap??machine so she feels very familiar with pap therapy. Review of Systems A 10-point REVIEW OF SYSTEM was obtained and reviewed, includes CONSTITUTIONAL, EYES, NOSE, THROAT,RESPIRATORY, HEART, GASTROINTESTINAL, UROLOGIC, MUSCULOSKELETAL, PSYCHIATRY, SKIN systems. Pertinent symptoms are discussed in history, otherwise negative. Physical Exam Vitals & Measurements HR:??48??(Peripheral)?? BP:??139/67?? SpO2:??98%?? HT:??163??cm?? WT:??66.22??kg?? BMI:??24.92?? BSA:??1.73?? General:??well appearing, appearing [...] facial expression Clinic Assessment/Plan 1.??Obstructive sleep apnea??G47.33 Actions: FUTURE - Follow-Up Appointment Request ROLLY, *Est. 04/04/24 +/- 14 days, Future Order, In [facility] COMPLETED - Referral Management, Medical Service: RM Other, Reason: ADAPT-M, new cpap user, auto cpap 5-15 cm H20, dispense water chamber, lifetime, 99 months, Start: 02/03/24 ?? I provided greater than??30??minutes in the care of this patient, more than half the time was spentin [id number]-bz-vwlp counseling. ?? JEFFERY IRELAND??is a pleasant??73 year old?female??here for??sleep follow up. 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 Sleep Clinical Timeline:? 04/15/2023 - 04/29/2023: [...] neurocognitive changes, drowsy driving, Mallampati 4, ESS , [place] Questionnaire 2 out of 3 positive categories. [...] auto cpap??5-15 cm H20, order sent to [facility] ? Today's Assessment and Plan: We reviewed sleep study results in detail including apnea hypopnea index, positional data and oxygen data. We reviewed discussion of Obstructive Sleep Apnea, including pathophysiology, associated lobsterman cardiovascular, neurocognitive and overall health effects, and importance of treatment. Treatm ent options discussed. Extensively reviewed process of starting treatment and commonly encountered problems and ways to find support and troubleshooting problems.??I discussed different mask options and the importance of finding the mask that will work for??her??within the first 30 days. I discussed how to adjust humidity for dryness/congestion and that the goal will be to use nightly for??her??total sleep time. I covered insurance compliance requirements and the [facility]'s mask exchange policy.??I will see??flor between 31-90 days after starting CPAP and??she??is encouraged to call me sooner if??she??is having any difficulties tolerating CPAP. ?? Follow up: 2 months or sooner if needed. Problem List/Past Medical History Ongoing Breast mass, [...] tobacco user Tobacco Use:. Electronically Signed on 02/03/2024 10:04 EST Maddy Collins NP Patient Care team information Care Team Personnel Name: Millie Hilton MD Position: No Access Member Role: Primary Care Physician Insurance Providers Guarantor name: Health Plan Information #: 1 Payer: [employer] [employer]AC[employer]VANTAGE HMO Member Number: [id number] Policy Number: ESTELLA Health Plan Information #: 2 Payer: [employer] MED[employer] REPLAC[employer]VANTAGE PPO Member Number: NA Policy Number: ESTELLA Health Plan Information #: 3 Payer: MEDICARE [employer] Member Number: NA Policy Number: NA
--- OUTSIDE RECORDS SUMMARY | 2024-04-19 07:59 | XMS_ITS ---
Author Organization Unknown ALLERGIES AND ADVERSE REACTIONS No information ASSESSMENT No information CHIEF COMPLAINT No information MEDICATIONS No information OBJECTIVE DATA No information PHYSICAL EXAMINATION No information TREATMENT PLAN Planned Care Start Date Provider Encounter for Check-up [phone] PROBLEMS No information RESULTS No information REVIEW OF SYSTEMS No information SUBJECTIVE DATA No information VITAL SIGNS No information
--- OUTSIDE RECORDS SUMMARY | 2024-04-19 07:59 | XMS_ITS | Continuity of Care Document ---
Author Organization [facility] f or Sleep Disorders Address [address] [place] [address] Care Team Providers Care Scarfing Machine Operator Name Role Phone Millie Hilton Primary Care Physician [phone] [facility] Date[facility] 10/14/23 - 10/14/23 [facility] [address] [place] [address] Encounter Diagnosis Snoring(Discharge Diagnosis) - 10/14/23 Excessive daytime sleepiness(Discharge Diagnosis) - 10/14/23 Frequent nocturnal awakening(Discharge Diagnosis) - 10/14/23 Snoring(Final) - Hypersomnia, unspecified(Final) - Insomnia, unspecified(Final) - Discharge Disposition: Home or Self Care Attending Physician: Maddy Collins NP Referring Physician: Lui Nj MD Allergies, Adverse Reactions, Alerts Substance Reaction Severity Status melatonin Unknown Active Tobacco Unknown Active Cat Hair Unknown Active Assessment and Plan Extracted from: Title:Sleep Clinic - Office Visit Note Author:Maddy Luong NP Date:10/14/23 1.??Snoring??R06.83 2.??Excessive daytime sleepiness??G47.19 3.??Frequent nocturnal awakening??G47.00 I provided greater than??60??minutes in the care of this patient, more than half the time was spent in dkim-zv-[id number] counseling. ? JEFFERY IRELAND??is a pleasant??72 year old?female??here for??new patient sleep consult. ??with comorbidities of?? 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 [place]??Questionnaire: 2 out of 3 ?? Sleep Clinical Timeline:? 04/15/2023 - 04/29/2023: [...] changes, drowsy driving, Mallampati 4, ESS 19/24, [place] Questionnaire 2 out of 3 positive categories. Ordered diagnostic PSG. ? Today's Assessment and Plan: ? We had a thorough discussion of Obstructive Sleep Apnea, including pathophysiology, associated computer terminal operator cardiovascular, neurocognitive, and overall health effects, and importance of treatment. ??I ordered a polysomnogram and discussed what will take place the night of the sleep study. I will see??her ??back to review the results as soon as they are available.??She ??agrees with the plan. ? Adhere to drowsy driving precautions as applicable. ? Treatment options discussed. ? Proceed with Diagnostic Polysomnogram. In-facility sleep study requested PSG Instructions: Obtain supine and lateral position sleep for comparison. Document medications taken on night of PSG. Pt may require a dose of Ambien 5mg 1-2 tabs on the night of her sleep study. ? Follow up: ?? 2-3 months or??sooner if needed. ?Remote Scribed by Ketan Francois ? Future Appointments Medications calcium carbonate 500 [...] Range]: 1 Peripheral Pulse Rate [60-100 bpm] 50 bp m *LOW* (10/14/23 1:53 PM) Blood Pressure [90-140/60-90 mmHg] 183/9 5mmHg *HI* (10/14/23 1:53 PM) Mean Arterial Pressure, Cuff [65-140 mmH g] 124 mmHg (10/14/23 1:53 PM) Weight 65.45 kg (10/14/23 1:53 PM) Weight Measured (lbs) 144.292 lb (10/14/23 1:53 PM) Weight Dosing 65.450 kg (10/14/23 1:53 PM) Height 163 cm (10/14/23 1:53 PM) Height/Length Measured (inches) 64.17 in ch (10/14/23 1:53 PM) BSA Measured 1.72 m2 (10/14/23 1:53 PM) Body Mass Index 24.63 kg/m2 (10/14/23 1:53 PM) Social History Social History Type Response Tobacco Never tobacco user T obacco Use:. Sex Physician Outpatient Note * Maddy Collins PAINT MIXER MACHINE: PERFORM Event Display: Office Clinic Note Physician Authored Date: [id number] JEFFERY IRELAND :1950 Age:72 years Sex:Female Visit Date:10/14/2023 Primary Care Physician: Millie Hilton MD Chief Complaint new patient sleep consult History of Present Illness Sleep Medicine New Patient Consult pleasant??72 year old??female??who presents for sleep consultation at kind request of Dr. Ko (Cardiology) ?? PREVIOUS SLEEP EVALUATION:None? CHIEF COMPLAINT/HISTORY OF PRESENT ILLNESS: Patients reports biggest problem with sleep is snoring, non restorative sleep. Stays active to stayawake during the day. No family hx of MICHELLE that she knows of. ?? SLEEP SCHEDULE:??Bedtime 9:30?pm, Sleep onset latency??variable??, wakes 2+ times per night, Able to fall back asleep within??few minutes, Wake time 4- 6??am. Naps??None regularly. SLEEP ENVIRONMENT:No environmental disruptions identified.??Sleeps in a bed with her . SLEEP QUALITY:Poor??to adequate. DAYTIME/NEUROCOGNITIVE FUNCTION:Low energy and sleepy..??Problems with memory and mood??Noticed slow decline in memory over time. SLEEP RELATED THOUGHTS/BEHAVIORS:[place]uilla active mind.___?? SLEEP BREATHING:Loud snoring.Waking up gasping for air._Mouth breathing.Choking sensation.?? LEG SYMPTOMS:Deny RLS related symptoms____Toss and turn at night.Sheets are messy after sleep.?? MOVEMENT SYMPTOMS:??No sleepwalking. DREAM SYMPTOMS:Deny dream enacting behavior..??Deny hypnogogic or hynopompic hallucinations..??No disturbing dreams.. Does not dream at night. WEAKNESS SYMPTOMS:Deny cataplexy related symptoms.Deny sleep paralysis.?? DRIVING:Experienced drowsy driving in past related to sleep deprivation..Follows drowsy driving precautions.?? OTHER PERTINENT SYMPTOMS: ?? PRODUCT/SUBSTANCE USE:??No smoking.??_.??No alcohol use.??No regular illicit drug use. 2 cups of coffee per day. SOCIAL HISTORY:??Retired.??_. 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 Review of Systems + heavy sweating at night, SOB with exertion, nocturia, joint pain, leg pain Physical Exam Vitals & Measurements HR:??50??(Peripheral)?? BP:??183/95?? SpO2:??98%?? HT:??163??cm?? WT:??65.45??kg?? BMI:??24.63?? BSA:??1.72?? General:??well appearing, appearing stated age, no acute distress,??normal??build HEENT: atraumatic skull, anicteric, Mallampati 4 RESPIRATORY: quiet respiration, able to speak in full sentences without dyspnea, no accessory muscle use SKIN: no facial skin rash, no facial skin lesions PSYCHIATRIC: well groomed, fluent speech, good insight, linear thought process, good eye contact,balanced??affect NEUROLOGIC: alert, oriented, symmetric facial expression Clinic Assessment/Plan 1.??Snoring??R06.83 2.??Excessive daytime sleepiness??G47.19 3.??Frequent nocturnal awakening??G47.00 I provided greater than??60??minutes in the care of this patient, more than half the time was spentin mhzd-ot-dyag counseling. ?? JEFFERY IRELAND??is a pleasant??72 year old?female??here for??new patient sleep consult. 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 [place]??Questionnaire: 2 out of 3 ?? Sleep Clinical Timeline:? 04/15/2023 - 04/29/2023: [...] changes, drowsy driving, Mallampati 4, ESS 19/24, [place] Questionnaire 2 out of 3 positive categories. Ordered diagnostic PSG. ? Today's Assessment and Plan: ?? We had a thorough discussion of Obstructive Sleep Apnea, including pathophysiology, associated skilled nursing cardiovascular, neurocognitive, and overall health effects, and importance of treatment. ??I ordered a polysomnogram and discussed what will take place the night of the sleep study. I will see??her ??back to review the results as soon as they are available.??She ??agrees with the plan. ?? Adhere to drowsy driving precautions as applicable. ?? Treatment options discussed. ?? Proceed with Diagnostic Polysomnogram. In-facility sleep study requested PSG Instructions: Obtain supine and lateral position sleep for comparison. Document medications taken on night of PSG. Pt may require a dose of Ambien 5mg 1-2 tabs on the night of her sleep study. ?? Follow up: 2-3 months or??sooner if needed. ?Remote Scribed by Ketan Francois Problem List/Past Medical History Ongoing Breast mass, right History of malignant neoplasm of right breast HLD (hyperlipidemia) Macular degeneration, wet MICHELLE (obstructive sleep apnea) Osteoarthritis of right knee Osteoporosis Rotator cuff tear Status post right partial knee replacement Historical No qualifying data Medications What How Much When Instructions Unchanged acetaminophen (Tylenol 325 mg oral capsule) 1 Capsules Oral (given by mouth) Every 4 hours as needed for as needed for fever Contact prescribing physician if questions or concerns ?? Unchanged aflibercept ophthalmic (Eylea) Contact prescribing physician if questions or concerns ?? Unchanged calcium carbonate (calcium carbonate 500 mg (200 mg elemental calcium) oral tablet, chewable) 1 tab Chewed 2 times a day Contact prescribing physician if questions or concerns ?? Unchanged denosumab (Prolia 60 mg/ mL subcutaneous solution) 1 Milliliters Subcutaneous (under the skin) Every 6 months Contact prescribing physician if questions or concerns ?? Unchanged glycine Contact prescribing physician if questions or concerns ?? Unchanged magnesium glycinate (magnesium glycinate 200 mg oral tablet) Contact prescribing physician if questions or concerns ?? Unchanged multivitamin (Multi Vitamin+) Contact prescribing physician if questions or concerns ?? Unchanged multivitamin (Vitamin B Complex 100) Contact prescribing physician if questions or concerns ?? Unchanged omega-3 polyunsaturated fatty acids (Fish Oil oral capsule) 1 Capsules Oral (given by mouth) Every day Contact prescribing physician if questions or concerns ? What How Much When Comments Stop Taking anastrozole (anastrozole 1 mg oral tablet) 1 tab Oral (given by mouth) Every day Allergies Cat Hair Tobacco melatonin Social History Electronic Cigarette/Vaping Electronic Cigarette Use: Never. Tobacco Never tobacco user Tobacco Use:. Electronically Signed on 10/14/2023 16:15 EDT Maddy Collins PAINT MIXER MACHINE Electronically Signed on 10/14/2023 14:29 EDT Ketan Francois Patient Care team information Care Team Personnel Name: Millie Hilton MD Position: No Access Member Role: Primary Care Physician
--- OUTSIDE RECORDS SUMMARY | 2024-04-19 08:00 | XMS_ITS ---
Author Organization Unknown Address [address] [place] [phone] Phone Care Team Providers Care Salvationist Name Role Phone JAKE Santos Attending Unavailable JESENIA Kendall Primary Unavailable Social History Type Status Start Date End Date Code Code Syst em Smoking History Never smoker (Never Smoked) 407501119 SNOMED CT Sex Female Hospital Discharge Instructions Should you have any questions prior to discharge, please contact a member of your healthcare team. If you have left the hospital and have any questions, please contact your primary care physician. Reason For Referral No Data Found Implants Implanted AMANDA Status Assigning Authority Procedure Date Lot Number Serial Number Manufacturing Date Expiration Date Distinct ID Code Brand Name Model Number Uncoated knee tibia prosthesis , metallic 0100 8855 5668 [id number] 1731 1212 1020 AAP0 032Q Active FDA RIGHT PKR 09/30 [id number] 03/03/2031 JOURNE Y II UNI [id number] 6 Uncoated unicondyla r knee tibia prosthesis , [place] 0100 8855 5667 7148 1731 1113 1021 KAP0 125D Active FDA RIGHT PKR 09/30 [id number] 02/02/2031 JOURNE Y II UNI [id number] 9 Uncoated knee femur prosthesis , metallic 0100 8855 5667 5892 1731 1228 1021 MM17 600 Active FDA RIGHT PKR 09/30 [id number] 03/19/2031 JOURNE Y II UNI [id number] 6 Orthopaedi c cement, antimicrob ial 0100 8855 5658 2220 1726 1130 1021 MTC0 184 Active FDA RIGHT PKR 09/30 [id number] 02/19/2026 PRAKASH [id number] 0 Allergies and Adverse Reactions Allergy Substance Reaction Severity Start Date Concern Status Co de Code System MELATONIN RASH (SNOMED-CT: null) Active 6703 RxNorm Plan of Treatment LAB DRAW 15MIN 06/09/2023 LAB DRAW 15MIN 06/04/2023 NM MPI STR/RST 06/17/2023 PFT COMPLETE W BROCHODILATER 05/27/2023 X-RAY 05/22/2023 MRI UPPER EXT JOINT W/O CONTRAST 2022 X-RAY 01/09/2022 PRE-OP COVID-19 TESTING 09/27/2021 PRE-OP TESTING 09/02/2021 MRI LOWER EXT W/O CONTRAST 04/10/2021 Encounters Encounter Diagnosis Start Date Code Code Sys tem 03/06/2021 [id number] SNOMED-CT Personal Care Team Section Performer Name Performer Role Active Date Inactive Da barrera
--- OUTSIDE RECORDS SUMMARY | 2024-04-19 08:00 | XMS_ITS ---
Author Organization Unknown Address [address] [place] [phone] Phone Care Team Providers Care Voice Over Announcer Name Role Phone LINDSEY Hand Attending Unavailable JESENIA Kendall Primary Unavailable Results XR KNEE RT MIN 4V* - Complet ed: 05/13/2021 16:11 LOINC: RIGHT KNEE: Comparison is made with November 10. There is mild narrowing of the patellofemoral joint space and mild periarticular spurring. There is mild narrowing of the medial femoral tibial joint space which shows mild spurring. The lateral femoral tibial joint is well maintained. IMPRESSION:Mild degenerative changes. Dictated by: CEO DAVI BARRETO MD Transcribed by: CLARITZA 05/14/2108:42 D Thursday, May 13, 2021 4:06:28 PM [id number] Electronically Reviewed and Signed By: DAVI BARRETO MD 05/14/21 13:58 Copy for: 185 HEALTH INFORMATION MGMT Social History Type Status Start Date End Date Code Code Syst em Smoking History Never smoker (Never Smoked) 641165976 SNOMED CT Sex Female Hospital Discharge Instructions [...] AAP0 032Q Active FDA RIGHT PKR 09/30 [id number] 32Q 03/03/2031 JOURNE Y II UNI [id number] 6 Uncoated unicondyla r knee tibia prosthesis , polyethyle ne 0100 8855 5667 7148 1731 1113 1021 KAP0 125D Active FDA RIGHT PKR 09/30 [id number] [id number] 02/02/2031 JOURNE Y II UNI 3609526 9 Uncoated knee femur prosthesis , metallic 0100 8855 5667 5892 1731 1228 1021 MM17 600 Active FDA RIGHT PKR 09/30 [id number] 00 03/19/2031 JOURNE Y II UNI [id number] 6 Orthopaedi c cement, antimicrob ial 0100 8855 5658 2220 1726 1130 1021 MTC0 184 Active FDA RIGHT PKR 09/30 [id number] 02/19/2026 RALLY 6753796 0 Allergies and Adverse Reactions Allergy Substance Reaction Severity Start Date Concern Status Co de Code System MELATONIN RASH (SNOMED-CT: null) Active 6711 RxNorm Plan of Treatment LAB DRAW 15MIN 06/09/2023 LAB DRAW 15MIN 06/04/2023 NM MPI STR/RST 06/17/2023 PFT COMPLETE W BROCHODILATER 05/27/2023 X-RAY 05/22/2023 MRI UPPER EXT JOINT W/O CONTRAST 2022 X-RAY 01/09/2022 PRE-OP COVID-19 TESTING 09/27/2021 PRE-OP TESTING 09/02/2021 MRI LOWER EXT W/O CONTRAST 04/10/2021 Encounters Encounter Diagnosis Start Date Code Code Sys tem Idiopathic osteoarthritis 05/13/2021 679792240 SN OMED-CT Personal Care Team Section Performer Name Performer Role Active Date Inactive Da barrera
--- OUTSIDE RECORDS SUMMARY | 2024-04-19 08:00 | XMS_ITS ---
Author Organization Unknown Address [address] [place] [address] [phone] Phone Care Team Providers Care Residential Green Building Designer Name Role Phone JAKE Santos Attending Unavailable JESENIA Kendall Primary Unavailable Results MR LOWER EXT ANY JOINT RT WI THOUT CONTR* - Completed: 04/10/2021 14:25 LOINC: RIGHT KNEE MRI: Multisequence MRI scan of the right knee was performed. Plain films of 11/20/20 were reviewed. Effusion: There is a moderate sized pleural effusion. There is a large Perez cyst in the medial popliteal fossa which measures 8.5 cm craniocaudal by 3.5 cm wide by 1.5 cm AP. This does not appear ruptured. Marrow: There is no evidence of fracture nor prominent bone contusion. No osteochondral defects. No ominous osseous lesions. Patellofemoral compartment: Quadriceps tendon is intact. Some increased signal is seen in the superior aspect of the patellar tendon immediately subjacent to the inferior pole of the patella. There is no intraosseous signal abnormality within the patella itself. There is thinning of the retropatellar cartilage over the medial facet. Also a small fissure in the mid facet level. There is relative preservation of retropatellar cartilage thickness over the lateral facet. There are no intraosseous abnormalities in the posterior patella. No evidence of patellar retinacular tear. Cruciate ligaments: Anterior and posterior cruciate ligaments are intact. Medial compartment/medial meniscus: There is a tear in the posterior horn of the medial meniscus. This exhibits oblique and horizontal components. Mild meniscal extrusion evident at this level. Mild meniscocapsullar separation. The tear extends to the junction of the anterior and posterior horns. The anterior horn is otherwise intact. There is significant thinning of the retropatellar cartilage over the main weightbearing surface. Small marginal osteophyte off the outer aspect of the medial femoral condyle. Mild subarticular edema is seen in the subjacent medial tibial plateau. Medial collateral ligament: Intact. Lateral compartment/lateral meniscus: There are no tears of the lateral meniscus. Mild thinning of the cartilage over the lateral femoral condyle. No osteochondral defects. Iliotibial band: Intact. Lateral collateral ligament complex: All components are intact including the popliteus tendon. IMPRESSION: 1. There is a tear of the posterior horn of the medial meniscus as described above. This extends to the junction of the anterior and posterior horns. 2. There is degenerative change in the hyaline cartilage over the medial femoral condyle and marginal osteophyte at this level. Also mild bone edema noted in the subjacent medial tibial plateau. 3. Lateral meniscus is intact. Minimal degenerative changes in the lateral compartment. 4. No cruciate ligament tear is seen and no obvious collateral ligament tears. 5. Moderate to advanced thinning of the retropatellar cartilage over the medial facet. No abnormal intraosseous signal in the patella. 6. Prominent Perez cyst evident in the medial popliteal fossa. Exhibits some septations but no loose intraarticular body therein. Small to moderate size joint effusion also noted. Dictated by: KATHLEEN ESPITIA MD Transcribed by: CLARITZA 04/11/21/07:23 D Saturday, April 10, 2021 2:07:33 PM [id number] Electronically Reviewed and Signed By: BÁRBARA ESPITIA MD 04/12/21 07:33 Copy for: 185 HEALTH INFORMATION MGMT Social History Type Status Start Date End Date Code Code Syst em Smoking History Never smoker (Never Smoked) 173217421 OMED CT Sex Female Hospital Discharge Instructions Should [...] AAP0 032Q Active FDA RIGHT PKR 09/30 22XCY99 32Q 03/03/2031 [facility] 6364362 6 Uncoated unicondyla [place] tibia [place] , [place] [address] 8855 5667 7148 1731 1113 1021 KAP0 125D Active FDA RIGHT PKR 09/30 59QHW18 25D 02/02/2031 [facility] II [facility] 5954769 9 Uncoated knee femur prosthesis , metallic 0100 8855 5667 5892 1731 1228 1021 MM17 600 Active FDA RIGHT PKR 09/30 [id number] 00 03/19/2031 [facility] II [facility] 7642318 6 Orthopaedi c cement, antimicrob ial 0100 8855 5658 2220 1726 1130 1021 MTC0 184 Active FDA RIGHT PKR 09/30 83TRB03 84 02/19/2026 RALLY [id number] 0 Allergies and Adverse Reactions Allergy Substance [...] Diagnosis Start Date Code Code Sys tem Other tear of medial meniscu s, current injury, right knee, initial encounter 04/10/2021 SNOMED-CT Personal Care Team Section Performer Name Performer Role Active Date Inactive Da te
--- OUTSIDE RECORDS SUMMARY | 2024-04-19 08:00 | XMS_ITS ---
Author Organization Unknown Address [address] [place] [address] [phone] Phone Care Team Providers Care Wine Merchant Name Role Phone JAKE Santos Attending Unavailable JESENIA Kendall Primary Unavailable Social History Type Status Start Date End Date Code Code Syst em Smoking History Never smoker (Never Smoked) 554253306 SNOMED CT Sex Female Hospital Discharge Instructions [...] AAP0 032Q Active FDA RIGHT PKR 09/30 23RFR23 32Q 03/03/2031 [facility] II [facility] 3943052 6 Uncoated unicondyla r knee tibia prosthesis , [place] 0100 8855 5667 7148 1731 1113 1021 KAP0 125D Active FDA RIGHT PKR 09/30 41JHE81 25D 02/02/2031 [facility] II [facility] 9070456 9 Uncoated knee femur prosthesis , metallic 0100 8855 5667 5892 1731 1228 1021 MM17 600 Active FDA RIGHT PKR 09/30 [id number] 00 03/19/2031 [facility] II [facility] 6759962 6 Orthopaedi c cement, antimicrob ial 0100 8855 5658 2220 1726 1130 1021 MTC0 184 Active FDA RIGHT PKR 09/30 88EHE60 84 02/19/2026 PRAKASH 1898445 0 Allergies and Adverse Reactions Allergy Substance Reaction Severity Start Date Concern Status Co de Code System MELATONIN RASH (SNOMED-CT: null) Active 6704 RxNorm Plan of Treatment LAB DRAW 15MIN 06/09/2023 LAB DRAW 15MIN 06/04/2023 NM MPI STR/RST 06/17/2023 PFT COMPLETE W BROCHODILATER 05/27/2023 X-RAY 05/22/2023 MRI UPPER EXT JOINT W/O CONTRAST 2022 X-RAY 01/09/2022 PRE-OP COVID-19 TESTING 09/27/2021 PRE-OP TESTING 09/02/2021 MRI LOWER EXT W/O CONTRAST 04/10/2021 Encounters Encounter Diagnosis Start Date Code Code Sys tem Idiopathic osteoarthritis 06/19/2021 [id number] SN OMED-CT Personal Care Team Section Performer Name Performer Role Active Date Inactive Da barrera
--- OUTSIDE RECORDS SUMMARY | 2024-04-19 08:01 | XMS_ITS ---
Author Organization Unknown Address [address] [place] [address] [phone] Phone Care Team Providers Care Aquatics Specialist Name Role Phone HOME GALVEZ Attending Unavailable JESENIA Kendall Primary Unavailable Results TYPE AND SCREEN* - Collect D ate/Time: 09/02/2021 15:10 [facility] ID: [id number] [address] [place] [address], [phone] LOINC: Test Value Unit Reference Range Code Code System Flag Blood Group O 883-9 LOINC Rh (D) POSITIVE 37183-5 LOINC Antibody Screen NEGATIVE 1005-8 LOINC PT PROTHROMBIN TIME* - Colle ct Date/Time: 09/02/2021 15:10 [facility] ID: [id number] [address] [place] [address], 5661 LOINC: 5902-2 Test Value Unit Reference Range Code Code System Flag PROTIME 9.8 seconds L=9.3 H=11.4 5902-2 LOINC INR 0.98 L=2.00 H=3.00 62701-7 LOINC L NICOTINE AND METABOLITE(COTI NINE) URINE - Collect Date/Time: 09/02/2021 15:10 [facility] ID: [id number] [address] [place] [address], [phone] LOINC: 3854-7 Test Value Unit Reference Range Code Code System Flag Nicotine <5.0 <5.0 3854-7 LOINC Cotinine < 5.0 ng/mL <5.0 01374-6 LOINC Nornicotine < 2.0 ng/mL <2.0 29737-1 LOINC Anabasine < 2.0 ng/mL <2.0 63066-0 LOINC MRSA/MSSA NASAL COMPLETE BY PCR* - Collect Date/Time: 09/02/2021 15:10 [facility] ID: [id number] [address] [place] [address], [phone] LOINC: Test Value Unit Reference Range Code Code System Flag MRSA NEGATIVE Normal: Negative 88611-7 LOINC MSSA POSITIVE Normal: Negative A CBC W/ DIFFERENTIAL* - Colle ct Date/Time: 09/02/2021 15:10 [facility] ID: [id number] [address] [place] [address], 5661 LOINC: 78796-8 Test Value Unit Reference Range Code Code System Flag WBC 6.59 th/cmm L=5.00 H=10.00 6690-2 LOINC NEUT % 54.5 % L=40.0 H=80.0 LYMPH % 34.3 % L=10.0 H=50.0 MONO % 9.0 % L=2.0 H=12.0 62703-1 LOINC EOS % 1.4 % L=0.0 H=8.0 BASO % 0.5 % L=0.0 H=3.0 IG % 0.3 % L=0.0 H=1.1 2514-8 LOINC NRBC % 0.0 % L=0.0 H=0.0 12464-7 LOINC NEUT abs count 3.6 th/cmm L=1.6 H=8.4 751-8 LOINC LYMPH abs count 2.3 th/cmm L=1.5 H=4.0 731-0 LOINC MONO abs count 0.6 th/cmm L=0.2 H=1.0 742-7 LOINC EOS abs count 0.1 th/cmm L=0.0 H=0.5 711-2 LOINC BASO abs count 0.0 th/cmm L=0.0 H=0.2 704-7 LOINC IG abs count 0.0 th/cmm L=0.0 H=0.1 22140-2 LOINC NRBC abs count 0.0 mil/cmm L=0.0 H=0.0 88847-6 LOINC RBC 4.11 mil/cmm L=3.90 H=5.40 789-8 LOINC HEMOGLOBIN 12.7 gm/dL L=12.0 H=16.0 718-7 LOINC HEMATOCRIT 39 % L=37 H=47 4544-3 LOINC MCV 94 fL L=82 H=92 787-2 LOINC H MCH 30.9 pg L=27.0 H=31.0 785-6 LOINC MCHC 32.7 % L=32.0 H=36.0 786-4 LOINC RDW-SD 44.4 fL L=39.0 H=49.0 788-0 LOINC PLATELET COUNT 265 th/cmm L=150 H=450 777-3 LOINC BASIC METABOLIC PANEL (BMP) - Collect Date/Time: 09/02/2021 15:10 [facility] ID: [id number] [address] [place], [place], [address] LOINC: 09412-1 Test Value Unit Reference Range Code Code System Flag GLUCOSE 115 mg/dL L=70 H=116 2345-7 LOINC BUN 18 mg/dL L=6 H=25 3094-0 LOINC CREATININE 0.81 mg/dL L=0.51 H=0.95 2160-0 LOINC SODIUM SERUM 137 mmol/L L=136 H=145 2951-2 LOINC POTASSIUM SERUM 4.1 mmol/L L=3.4 H=5.2 2823-3 LOINC CHLORIDE SERUM 102 mmol/L L=96 H=110 2075-0 LOINC CARBON DIOXIDE (CO2) 26 mmol/L L=22 H=34 2028-9 LOINC ANION GAP 9.4 mmol/L 30769-5 LOINC CALCIUM SERUM 9.0 mg/dL L=8.2 H=10.2 58228-8 LOINC AGE 70 years eGFR (non-Afr.Amer.) 70 mL/min 75310-8 LOINC eGFR (Afr-Bruneian) 84 mL/min 41358-9 LOINC XR BONE LENGTH STUDIES - Com pleted: 09/02/2021 15:26 LOINC: LEG LENGTH STUDY Compared to prior images, most recent being 05/13/21. There is mild-moderate narrowing of the medial compartment of the right knee. Lateral compartment exhibits normal height. There is no obvious narrowing of the medial compartment of the opposite-left knee nor the lateral compartment. There is symmetrical mild narrowing of the hip joint spaces bilaterally. Ankles appear unremarkable. Talar dome is unremarkable. Bone density normal. No osseous lesions. Dictated by: HN BÁRBARA ESPITIA MD Transcribed by: [facility] 09/03/2115:18 D Thursday, September 02, 2021 4:51:29 PM [id number] Electronically Reviewed and Signed By: BÁRBARA ESPITIA MD 09/03/21 19:37 <<COSIGNATURE_PENDING>> Copy for: JESENIA Kendall via fax Copy for: [facility] HEALTH INFORMATION MGMT Social History Type Status Start Date End Date Code Code Syst em Smoking History Never smoker (Never Smoked) 268777512 SNOMED CT Sex Female Hospital Discharge Instructions [...] AAP0 032Q Active FDA RIGHT PKR 09/30 34BQD82 32Q 03/03/2031 [facility] II [facility] 7924812 6 Uncoated unicondyla [place] tibia [place] , [place] [address] 8855 5667 7148 1731 1113 1021 KAP0 125D Active FDA RIGHT PKR 09/30 39ZLJ09 25D 02/02/2031 [facility] II [facility] 9069793 9 Uncoated knee femur prosthesis , metallic 0100 8855 5667 5892 1731 1228 1021 MM17 600 Active FDA RIGHT PKR 09/30 [id number] 00 03/19/2031 [facility] II [facility] 2820131 6 Orthopaedi c cement, antimicrob ial 0100 8855 5658 2220 1726 1130 1021 MTC0 184 Active FDA RIGHT PKR 09/30 16TGV46 84 02/19/2026 RALLY 2587826 0 Allergies and Adverse Reactions Allergy Substance [...] Diagnosis Start Date Code Code Sys tem Encounter for other preprocedural examination 09/03/19 22 SNOMED-CT Personal Care Team Section Performer Name Performer Role Active Date Inactive Da te
--- OUTSIDE RECORDS SUMMARY | 2024-04-19 08:01 | XMS_ITS ---
Author Organization Unknown Address [address] [place] [address] [phone] Phone Care Team Providers Care Air Brake Man Name Role Phone HOME GALVEZ Attending Unavailable JESENIA Kendall Primary Unavailable Results [facility] - Sindhu ect Date/Time: 09/27/2021 10:08 [facility] ID: [id number] [address] [place] [address], [phone] LOINC: 29245-8 Test Value Unit Reference Range Code Code System Flag Tier- PRE-OP 10739-2 LOINC SARS COV2 RNA: NEGATIVE REFERENCE RANGE: NEGAT 64572-9 L OINC Social History Type Status Start Date End Date Code Code Syst em Smoking History Never smoker (Never Smoked) 090444332 SNOMED CT Sex Female Hospital Discharge Instructions [...] AAP0 032Q Active FDA RIGHT PKR 09/30 13INV77 32Q 03/03/2031 [facility] Y II [facility] 8941670 6 Uncoated unicondyla r [place] tibia [place] , [place] [address]100 8855 5667 7148 1731 1113 1021 KAP0 125D Active FDA RIGHT PKR 09/30 73ONW02 25D 02/02/2031 [facility] 5931527 9 Uncoated knee femur prosthesis , metallic 0100 8855 5667 5892 1731 1228 1021 MM17 600 Active FDA RIGHT PKR 09/30 [id number] 00 03/19/2031 [facility] 1186237 6 Orthopaedi c cement, antimicrob ial 0100 8855 5658 2220 1726 1130 1021 MTC0 184 Active FDA RIGHT PKR 09/30 58IGW75 84 02/19/2026 RALLY 4595301 0 Allergies and Adverse Reactions Allergy Substance [...] Diagnosis Start Date Code Code Sys tem Pre-surgery testing 09/27/2021 693147448 SNOMED-C T Personal Care Team Section Performer Name Performer Role Active Date Inactive Da barrera
--- OUTSIDE RECORDS SUMMARY | 2024-04-19 08:01 | XMS_ITS ---
Author Organization Unknown Address [address] [place] [address] [phone] Phone Care Team Providers Care Platform Consultant Name Role Phone HOME GALVEZ Attending Unavailable JESENIA Kendall Primary Unavailable Social History Type Status Start Date End Date Code Code Syst em Smoking History Never smoker (Never Smoked) 158230551 SNOMED CT Sex Female Hospital Discharge Instructions [...] AAP0 032Q Active FDA RIGHT PKR 09/30 14PIF54 32Q 03/03/2031 [facility] 5657018 6 Uncoated unicondyla r knee tibia prosthesis , [place] 0100 8855 5667 7148 1731 1113 1021 KAP0 125D Active FDA RIGHT PKR 09/30 07SXX90 25D 02/02/2031 [facility] 0327739 9 Uncoated knee femur prosthesis , metallic 0100 8855 5667 5892 1731 1228 1021 MM17 600 Active FDA RIGHT PKR 09/30 88WZ783 00 03/19/2031 [facility] II [facility] 2752063 6 Orthopaedi c cement, antimicrob ial 0100 8855 5658 2220 1726 1130 1021 MTC0 184 Active FDA RIGHT PKR 09/30 76IYP22 84 02/19/2026 PRAKASH 9148676 0 Allergies and Adverse Reactions Allergy Substance Reaction Severity Start Date Concern Status Co de Code System MELATONIN RASH (SNOMED-CT: null) Active 1545 RxNorm Plan of Treatment LAB DRAW 15MIN 06/09/2023 LAB DRAW 15MIN 06/04/2023 NM MPI STR/RST 06/17/2023 PFT COMPLETE W BROCHODILATER 05/27/2023 X-RAY 05/22/2023 MRI UPPER EXT JOINT W/O CONTRAST 2022 X-RAY 01/09/2022 PRE-OP COVID-19 TESTING 09/27/2021 PRE-OP TESTING 09/02/2021 MRI LOWER EXT W/O CONTRAST 04/10/2021 Encounters Encounter Diagnosis Start Date Code Code Sys tem Idiopathic osteoarthritis 07/30/2021 [id number] SN OMED-CT Personal Care Team Section Performer Name Performer Role Active Date Inactive Da barrera
--- OUTSIDE RECORDS SUMMARY | 2024-04-19 08:02 | XMS_ITS ---
Author Organization Unknown Address [address] [place] [address] [phone] Phone Care Team Providers Care Hourly Associate Name Role Phone HOME GALVEZ Attending Unavailable Social History Type Status Start Date End Date Code Code Syst em Smoking History Never smoker (Never Smoked) 210329295 SNOMED CT Sex Female Hospital Discharge Instructions [...] AAP0 032Q Active FDA RIGHT PKR 09/30 55QSS05 32Q 03/03/2031 [facility] 8432136 6 Uncoated unicondyla r knee tibia prosthesis , [place] 0100 8855 5667 7148 1731 1113 1021 KAP0 125D Active FDA RIGHT PKR 09/30 07NOX59 25D 02/02/2031 [facility] 4339498 9 Uncoated knee femur prosthesis , metallic 0100 8855 5667 5892 1731 1228 1021 MM17 600 Active FDA RIGHT PKR 09/30 [id number] 00 03/19/2031 [facility] 1523743 6 Orthopaedi c cement, antimicrob ial 0100 8855 5658 2220 1726 1130 1021 MTC0 184 Active FDA RIGHT PKR 09/30 33SDI62 84 02/19/2026 CHINEDU 4887436 0 Allergies and Adverse Reactions Allergy Substance Reaction Severity Start Date Concern Status Co de Code System MELATONIN RASH (SNOMED-CT: null) Active 0244 RxNorm Plan of Treatment LAB DRAW 15MIN 06/09/2023 LAB DRAW 15MIN 06/04/2023 NM MPI STR/RST 06/17/2023 PFT COMPLETE W BROCHODILATER 05/27/2023 X-RAY 05/22/2023 MRI UPPER EXT JOINT W/O CONTRAST 2022 X-RAY 01/09/2022 PRE-OP COVID-19 TESTING 09/27/2021 PRE-OP TESTING 09/02/2021 MRI LOWER EXT W/O CONTRAST 04/10/2021 Encounters Encounter Diagnosis Start Date Code Code Sys tem Refusal of treatment by patient 09/30/2021 [id number] MindjetOMED-CT Personal Care Team Section Performer Name Performer Role Active Date Inactive Da barrera
--- OUTSIDE RECORDS SUMMARY | 2024-04-19 08:02 | XMS_ITS ---
Author Organization Unknown Address [address] [place] [address] [phone] Phone Care Team Providers Care It Software Developer Name Role Phone LINDSEY Hand Attending Unavailable JESENIA Kendall Primary Unavailable Social History Type Status Start Date End Date Code Code Syst em Smoking History Never smoker (Never Smoked) 451125658 SNOMED CT Sex Female Hospital Discharge Instructions [...] AAP0 032Q Active FDA RIGHT PKR 09/30 34HWC64 32Q 03/03/2031 [facility] 4891433 6 Uncoated unicondyla r knee tibia prosthesis , [place] 0100 8855 5667 7148 1731 1113 1021 KAP0 125D Active FDA RIGHT PKR 09/30 87DVU20 25D 02/02/2031 [facility] 7412660 9 Uncoated knee femur prosthesis , metallic 0100 8855 5667 5892 1731 1228 1021 MM17 600 Active FDA RIGHT PKR 09/30 [id number] 00 03/19/2031 [facility] 2130701 6 Orthopaedi c cement, antimicrob ial 0100 8855 5658 2220 1726 1130 1021 MTC0 184 Active FDA RIGHT PKR 09/30 34YGV72 84 02/19/2026 PRAKASH 3586464 0 Allergies and Adverse Reactions Allergy Substance Reaction Severity Start Date Concern Status Co de Code System MELATONIN RASH (SNOMED-CT: null) Active 0728 RxNorm Plan of Treatment LAB DRAW 15MIN 06/09/2023 LAB DRAW 15MIN 06/04/2023 NM MPI STR/RST 06/17/2023 PFT COMPLETE W BROCHODILATER 05/27/2023 X-RAY 05/22/2023 MRI UPPER EXT JOINT W/O CONTRAST 2022 X-RAY 01/09/2022 PRE-OP COVID-19 TESTING 09/27/2021 PRE-OP TESTING 09/02/2021 MRI LOWER EXT W/O CONTRAST 04/10/2021 Encounters Encounter Diagnosis Start Date Code Code Sys tem Aftercare following joint replacement surgery 10/11/19 SNOMED-CT Personal Care Team Section Performer Name Performer Role Active Date Inactive Da barrera
--- OUTSIDE RECORDS SUMMARY | 2024-04-19 08:02 | XMS_ITS ---
Author Organization Unknown Address [address] [place] [address] [phone] Phone Care Team Providers Care Manager Part Name Role Phone CINDY TUNG Guy Attending Unavailable JESENIA Kendall Primary Unavailable Social History Type Status Start Date End Date Code Code Syst em Smoking History Never smoker (Never Smoked) 486785825 SNOMED CT Sex Female Hospital Discharge Instructions [...] AAP0 032Q Active FDA RIGHT PKR 09/30 13PZT70 32Q 03/03/2031 [facility] 2649432 6 Uncoated unicondyla r knee tibia prosthesis , [place] 0100 8855 5667 7148 1731 1113 1021 KAP0 125D Active FDA RIGHT PKR 09/30 96AJN32 25D 02/02/2031 [facility] 5687018 9 Uncoated knee femur prosthesis , metallic 0100 8855 5667 5892 1731 1228 1021 MM17 600 Active FDA RIGHT PKR 09/30 75YW101 00 03/19/2031 [facility] 4919892 6 Orthopaedi c cement, antimicrob ial 0100 8855 5658 2220 1726 1130 1021 MTC0 184 Active FDA RIGHT PKR 09/30 79IWM77 84 02/19/2026 PRAKASH 8689468 0 Allergies and Adverse Reactions Allergy Substance Reaction Severity Start Date Concern Status Co de Code System MELATONIN RASH (SNOMED-CT: null) Active 1027 RxNorm Plan of Treatment LAB DRAW 15MIN 06/09/2023 LAB DRAW 15MIN 06/04/2023 NM MPI STR/RST 06/17/2023 PFT COMPLETE W BROCHODILATER 05/27/2023 X-RAY 05/22/2023 MRI UPPER EXT JOINT W/O CONTRAST 2022 X-RAY 01/09/2022 PRE-OP COVID-19 TESTING 09/27/2021 PRE-OP TESTING 09/02/2021 MRI LOWER EXT W/O CONTRAST 04/10/2021 Encounters Encounter Diagnosis Start Date Code Code Sys tem Encounter for follow-up exam ination after completed treatment for malignant neoplasm 10/29/2021 SNOMED- CT Personal Care Team Section Performer Name Performer Role Active Date Inactive Da te
--- OUTSIDE RECORDS SUMMARY | 2024-04-19 08:02 | XMS_ITS ---
Author Organization Unknown Address [address] [place] [address] [phone] Phone Care Team Providers Care Field Cane Scale Clerk Name Role Phone HOME GALVEZ Attending Unavailable ROSELYN Mary FIRE OPERATIONS FORESTER Unavailable LUCIO Santos Physician Social Media Senior Associate Unavailhomero Kendall Primary Unavailable Results XR KNEE 1V OR 2V RT* - Compl eted: 09/30/2021 13:57 LOINC: RIGHT KNEE Two views. Comparison 09/02/21. The patient is now status post partial right knee replacement. The orthopedic hardware appears in good position. The bones are intact. Post-surgical changes are seen in the soft tissues. Mild degenerative changes are seen at the patellofemoral joint. IMPRESSION: Status post partial right knee replacement. Dictated by: KRISTINE PERRY MD Transcribed by: [facility] 09/30/21/15:32 D Thursday, September 30, 2021 2:08:05 PM [id number] Electronically Reviewed and Signed By: HIRAM PERRY MD 10/02/21 10:12 Copy for: JESENIA Kendall via fax Copy for: [facility] HEALTH INFORMATION MGMT DISCHARGED Social History Type Status Start Date End Date Code Code Syst em Smoking History Never smoker (Never Smoked) 266628515 SNOMED CT Sex Female Vital Signs Vital Sign Value Unit [place] Value [place] Unit Date/Time Recent/Initial? Code Code System Body Mass Index 26.95 kg/m2 09/24/2021 09:59 Initial 13592 -5 LOINC Systolic Blood Pressure 139 mm[Hg] 09/30/2021 15:21 Initial 8480- 6 LOINC Diastolic Blood Pressure 65 mm[Hg] 09/30/2021 15:21 Initial 8462- 4 LOINC Body Surface Area 1.78 m2 09/24/2021 09:59 Initial 3140- 1 LOINC Height 161.925 0 cm 63.75 in 09/24/2021 09:59 Initial 8302- 2 LOINC O2 Saturation 100 % 2021 15:21 Initial 36088 -5 LOINC Pulse 51.0 /min 09/30/2021 15:21 Initial 8867- 4 LOINC Respiration 14 /min 10/01/19 15:21 Initial 9279- 1 LOINC Temperature 36.1 Nelli 97.0 F 10/01/19 15:21 Initial 8310- 5 LOINC Weight 70.67 kg 155.80 lbs 09/24/2021 09:59 Initial 92316 -7 LOINC Hospital Discharge Instructions Should you have any questions prior to discharge, please contact a member of your healthcare team. If you have left the hospital and have any questions, please contact your primary care physician. Reason For Referral No Data Found Procedures Procedure Name Date Status Code Code Syste m Arthroplasty, Knee, Condyle & Plateau; Medial/Lateral Compartment 09/30/2021 completed 68465 CPT Surgical Techniques Requirin g Use Of Robotic Surgical System (List In Addition To Primary Procedure) 09/30/2021 completed S2900 CPT Injection Anesthetic Agent a nd/or Steroid; Femoral Nerve 09/30/2021 completed 21178 CPT Anesthesia, Open/Surg Arthro scopic Proc, Knee Joint; NOS 09/30/2021 completed 80439 CPT Implants Implanted AMANDA Status Assigning Authority Procedure Date Lot Number Serial Number Manufacturing Date Expiration Date Distinct ID Code Brand Name Model Number Uncoated knee tibia prosthesis , metallic 0100 8855 5668 2203 1731 1212 1020 AAP0 032Q Active FDA RIGHT PKR 09/30 [id number] 32Q 03/03/2031 JOURNE Y II UNI [id number] 6 Uncoated unicondyla r knee tibia prosthesis , [place] 0100 8855 5667 7148 1731 1113 1021 KAP0 125D Active FDA RIGHT PKR 09/30 [id number] 25D 02/02/2031 JOURNE Y II UNI 0775566 9 Uncoated knee femur prosthesis , metallic 0100 8855 5667 5892 1731 1228 1021 MM17 600 Active FDA RIGHT PKR 09/30 [id number] 00 03/19/2031 JOURNE Y II UNI 9814761 6 Orthopaedi c cement, antimicrob ial 0100 8855 5658 2220 1726 1130 1021 MTC0 184 Active FDA RIGHT PKR 09/30 [id number] 84 02/19/2026 PRAKASH 3777968 0 Allergies and Adverse Reactions Allergy Substance [...] Diagnosis Start Date Code Code Sys tem Unilateral primary osteoarthritis, right knee 10/01/19 22 SNOMED-CT Personal Care Team Section Performer Name Performer Role Active Date Inactive Da te
--- OUTSIDE RECORDS SUMMARY | 2024-04-19 08:03 | XMS_ITS ---
Author Organization Unknown Address [address] [place] [address] [phone] Phone Care Team Providers Care Teacher Physically Impaired Name Role Phone BRIAN Cole Attending Unavailable STEPHEN ALMODOVAR Primary Unavailable Social History Type Status Start Date End Date Code Code Syst em Smoking History Never smoker (Never Smoked) 592494218 SNOMED CT Sex Female Hospital Discharge Instructions [...] AAP0 032Q Active FDA RIGHT PKR 09/30 [id number] 32Q 03/03/2031 JOURNE Y II UNI 0217973 6 Uncoated unicondyla r knee tibia prosthesis , [place] 0100 8855 5667 7148 1731 1113 1021 KAP0 125D Active FDA RIGHT PKR 09/30 [id number] 25D 02/02/2031 JOURNE Y II UNI 3073406 9 Uncoated knee femur prosthesis , metallic 0100 8855 5667 5892 1731 1228 1021 MM17 600 Active FDA RIGHT PKR 09/30 [id number] 00 03/19/2031 JOURNE Y II UNI 4193492 6 Orthopaedi c cement, antimicrob ial 0100 8855 5658 2220 1726 1130 1021 MTC0 184 Active FDA RIGHT PKR 09/30 70MAY24 84 02/19/2026 PRAKASH 9124221 0 Allergies and Adverse Reactions Allergy Substance Reaction Severity Start Date Concern Status Co de Code System MELATONIN RASH (SNOMED-CT: null) Active 6778 RxNorm Plan of Treatment LAB DRAW 15MIN 06/09/2023 LAB DRAW 15MIN 06/04/2023 NM MPI STR/RST 06/17/2023 PFT COMPLETE W BROCHODILATER 05/27/2023 X-RAY 05/22/2023 MRI UPPER EXT JOINT W/O CONTRAST 2022 X-RAY 01/09/2022 PRE-OP COVID-19 TESTING 09/27/2021 PRE-OP TESTING 09/02/2021 MRI LOWER EXT W/O CONTRAST 04/10/2021 Encounters Encounter Diagnosis Start Date Code Code Sys tem Artificial knee joint present 01/09/2022 71214720245 2 [facility] Team Section Performer Name Performer Role Active Date Inactive Da barrera
--- OUTSIDE RECORDS SUMMARY | 2024-04-19 08:03 | XMS_ITS ---
Author Organization Unknown Address [address] [place] [address] [phone] Phone Care Team Providers Care Linux Admin Name Role Phone HOME GALVEZ Attending Unavailable JESENIA Kendall Primary Unavailable Results XR KNEE 3V RT* - Completed: 11/07/2021 08:18 LOINC: RIGHT KNEE - 3 VIEWS Compared to 09/30/21. There is stable position and alignment of the components of the medial hemiarthroplasty. No fracture nor loosening of pin. The lateral compartment continues to exhibit normal height. There appears to be a small amount of increased joint fluid. No radiographic evidence of osteomyelitis. Dictated by: KATHLEEN ESPITIA MD Transcribed by: [facility] 11/11/2108:19 D October 8:30:40 AM [id number] Electronically Reviewed and Signed By: BÁRBARA ESPITIA MD 11/11/21 09:04 Copy for: JESENIA Kendall via fax Copy for: 185 HEALTH INFORMATION MGMT Social History Type Status Start Date End Date Code Code Syst em Smoking History Never smoker (Never Smoked) 089077971 SNOMED CT Sex Female Hospital Discharge Instructions [...] AAP0 032Q Active FDA RIGHT PKR 09/30 36PXJ38 32Q 03/03/2031 JOURNE Y II UNI 4008039 6 Uncoated unicondyla r knee tibia prosthesis , [place] 0100 8855 5667 7148 1731 1113 1021 KAP0 125D Active FDA RIGHT PKR 09/30 47MQS16 25D 02/02/2031 JOURNE Y II UNI 3985720 9 Uncoated knee femur prosthesis , metallic 0100 8855 5667 5892 1731 1228 1021 MM17 600 Active FDA RIGHT PKR 09/30 [id number] 00 03/19/2031 JOURNE Y II UNI 6429952 6 Orthopaedi c cement, antimicrob ial 0100 8855 5658 2220 1726 1130 1021 MTC0 184 Active FDA RIGHT PKR 09/30 [id number] 84 02/19/2026 PRAKASH 9490491 0 Allergies and Adverse Reactions Allergy Substance [...] Start Date Code Code Sys tem Aftercare 11/07/2021 580649626 [facility] Personal Care Team Section Performer Name Performer Role Active Date Inactive Benitez rust
--- OUTSIDE RECORDS SUMMARY | 2024-04-19 08:03 | XMS_ITS ---
Author Organization Unknown Address [address] [place] [address] [phone] Phone Care Team Providers Care Marketing Rep Name Role Phone LINDSEY Hand Attending Unavailable STEPHEN ALMODOVAR Primary Unavailable Results XR BONE LENGTH STUDIES - Com pleted: 01/09/2022 08:20 LOINC: [facility] [place], [place] [address] PACS COLOR TELEVISION CONSOLE MONITOR REPORT Patient Name: JEFFERY IRELAND MRN: Sex: : Age: [id number] F 1950 71 Account: Accession: Admit: StayType: [id number] O/P Ordered: Order ID: Entered Order: Ordering Provider: 01/09/2022 07:59 [id number] [facility] [place] Completed: Tech Completed: Resulted DTTM: 01/09/2022 08:20 BMM 01/09/2022 08:48 Study Description: XR BONE LENGTH STUDIES Study Reason: OA RT KNEE 2D digital imaging was performed. COMPARISON: Prior study 09/02/2021 FINDINGS: There is been interval placement of a medial hemiarthroplasty in the right knee. This appears satisfactory position alignment. There is continued normal height of the lateral compartment of the right knee. In the opposite knee there is mild narrowing of the medial compartment. No marginal osteophytes. Lateral compartment unremarkable. Hips appear unremarkable. Ankles unremarkable. IMPRESSION: Satisfactory appearance. Report Digitally Signed by Nato Mendoza on 01/09/2022 08:48 AM EDT Social History Type Status Start Date End Date Code Code Syst em Smoking History Never smoker (Never Smoked) 821052429 SNOMED CT Sex Female Hospital Discharge Instructions [...] AAP0 032Q Active FDA RIGHT PKR 09/30 [id number] 32Q 03/03/2031 JOURNE Y II UNI 8872258 6 Uncoated unicondyla r knee tibia prosthesis , [place] 0100 8855 5667 7148 1731 1113 1021 KAP0 125D Active FDA RIGHT PKR 09/30 52FFA27 25D 02/02/2031 JOURNE Y II UNI 8425649 9 Uncoated knee femur prosthesis , metallic 0100 8855 5667 5892 1731 1228 1021 MM17 600 Active FDA RIGHT PKR 09/30 [id number] 00 03/19/2031 JOURNE Y II UNI 0745513 6 Orthopaedi c cement, antimicrob ial 0100 8855 5658 2220 1726 1130 1021 MTC0 184 Active FDA RIGHT PKR 09/30 [id number] 84 02/19/2026 PRAKASH 2215469 0 Allergies and Adverse Reactions Allergy Substance [...] Sys tem Unilateral primary osteoarthritis, right knee 01/10/20 22 SNOMED-CT Personal Care Team Section Performer Name Performer Role Active Date Inactive Da te
--- OUTSIDE RECORDS SUMMARY | 2024-04-19 08:04 | XMS_ITS ---
Author Organization Unknown Address [address] [place] [address] [phone] Phone Care Team Providers Care Railroad Operator Name Role Phone BENTLEY Guy Attending Unavailable STEPHEN ALMODOVAR Primary Unavailable Social History Type Status Start Date End Date Code Code Syst em Smoking History Never smoker (Never Smoked) 670862571 SNOMED CT Sex Female Hospital Discharge Instructions [...] AAP0 032Q Active FDA RIGHT PKR 09/30 10IQU96 32Q 03/03/2031 JOURNE Y II UNI 4354466 6 Uncoated unicondyla r knee tibia prosthesis , [place] 0100 8855 5667 7148 1731 1113 1021 KAP0 125D Active FDA RIGHT PKR 09/30 97ALW08 25D 02/02/2031 JOURNE Y II UNI 5006318 9 Uncoated knee femur prosthesis , metallic 0100 8855 5667 5892 1731 1228 1021 MM17 600 Active FDA RIGHT PKR 09/30 76FQ728 00 03/19/2031 JOURNE Y II UNI 3119523 6 Orthopaedi c cement, antimicrob ial 0100 8855 5658 2220 1726 1130 1021 MTC0 184 Active FDA RIGHT PKR 09/30 36VYG36 84 02/19/2026 PRAKASH 6653024 0 Allergies and Adverse Reactions Allergy Substance Reaction Severity Start Date Concern Status Co de Code System MELATONIN RASH (SNOMED-CT: null) Active 2424 RxNorm Plan of Treatment LAB DRAW 15MIN 06/09/2023 LAB DRAW 15MIN 06/04/2023 NM MPI STR/RST 06/17/2023 PFT COMPLETE W BROCHODILATER 05/27/2023 X-RAY 05/22/2023 MRI UPPER EXT JOINT W/O CONTRAST 2022 X-RAY 01/09/2022 PRE-OP COVID-19 TESTING 09/27/2021 PRE-OP TESTING 09/02/2021 MRI LOWER EXT W/O CONTRAST 04/10/2021 Encounters Encounter Diagnosis Start Date Code Code Sys tem Idiopathic osteoarthritis 07/01/2022 110563727 SN OMED-CT Personal Care Team Section Performer Name Performer Role Active Date Inactive Da barrera
--- OUTSIDE RECORDS SUMMARY | 2024-04-19 08:04 | XMS_ITS ---
Author Organization Unknown Address [address] [place] [address] [phone] Phone Care Team Providers Care Filemaker Developer Name Role Phone BENTLEY Guy Attending Unavailable STEPHEN ALMODOVAR Primary Unavailable Social History Type Status Start Date End Date Code Code Syst em Smoking History Never smoker (Never Smoked) 679179583 SNOMED CT Sex Female Hospital Discharge Instructions [...] AAP0 032Q Active FDA RIGHT PKR 09/30 47OZX29 32Q 03/03/2031 JOURNE Y II UNI 3036744 6 Uncoated unicondyla r knee tibia prosthesis , [place] 0100 8855 5667 7148 1731 1113 1021 KAP0 125D Active FDA RIGHT PKR 09/30 79QNF56 25D 02/02/2031 JOURNE Y II UNI 4404919 9 Uncoated knee femur prosthesis , metallic 0100 8855 5667 5892 1731 1228 1021 MM17 600 Active FDA RIGHT PKR 09/30 07EI038 00 03/19/2031 JOURNE Y II UNI 9946806 6 Orthopaedi c cement, antimicrob ial 0100 8855 5658 2220 1726 1130 1021 MTC0 184 Active FDA RIGHT PKR 09/30 01XRO65 84 02/19/2026 PRAKASH 0336887 0 Allergies and Adverse Reactions Allergy Substance Reaction Severity Start Date Concern Status Co de Code System MELATONIN RASH (SNOMED-CT: null) Active 0916 RxNorm Plan of Treatment LAB DRAW 15MIN 06/09/2023 LAB DRAW 15MIN 06/04/2023 NM MPI STR/RST 06/17/2023 PFT COMPLETE W BROCHODILATER 05/27/2023 X-RAY 05/22/2023 MRI UPPER EXT JOINT W/O CONTRAST 2022 X-RAY 01/09/2022 PRE-OP COVID-19 TESTING 09/27/2021 PRE-OP TESTING 09/02/2021 MRI LOWER EXT W/O CONTRAST 04/10/2021 Encounters Encounter Diagnosis Start Date Code Code Sys tem Pain in right shoulder 04/29/2022 SNOME D-CT Personal Care Team Section Performer Name Performer Role Active Date Inactive Benitez rust
--- OUTSIDE RECORDS SUMMARY | 2024-04-19 08:05 | XMS_ITS ---
Author Organization Unknown Address [address] [place] [address] [phone] Phone Care Team Providers Care Salvage Repairer Name Role Phone CINDY TUNG Guy Attending Unavailable STEPHEN ALMODOVAR Primary Unavailable Social History Type Status Start Date End Date Code Code Syst em Smoking History Never smoker (Never Smoked) 342785165 SNOMED CT Sex Female Hospital Discharge Instructions [...] AAP0 032Q Active FDA RIGHT PKR 09/30 86VIN83 32Q 03/03/2031 JOURNE Y II UNI 4941363 6 Uncoated unicondyla r knee tibia prosthesis , [place] 0100 8855 5667 7148 1731 1113 1021 KAP0 125D Active FDA RIGHT PKR 09/30 36HFH34 25D 02/02/2031 JOURNE Y II UNI 5667379 9 Uncoated knee femur prosthesis , metallic 0100 8855 5667 5892 1731 1228 1021 MM17 600 Active FDA RIGHT PKR 09/30 [id number] 00 03/19/2031 JOURNE Y II UNI 5051785 6 Orthopaedi c cement, antimicrob ial 0100 8855 5658 2220 1726 1130 1021 MTC0 184 Active FDA RIGHT PKR 09/30 61SRP68 84 02/19/2026 PRAKASH 8547710 0 Allergies and Adverse Reactions Allergy Substance Reaction Severity Start Date Concern Status Co de Code System MELATONIN RASH (SNOMED-CT: null) Active 6762 RxNorm Plan of Treatment LAB DRAW 15MIN [...] ination after completed treatment for malignant neoplasm 10/28/2022 SNOMED- CT Personal Care Team Section Performer Name Performer Role Active Date Inactive Da te
--- OUTSIDE RECORDS SUMMARY | 2024-04-19 08:05 | XMS_ITS ---
Author Organization Unknown Address [address] [place] [address] [phone] Phone Care Team Providers Care Coordinate Measuring Machine Programmer Name Role Phone STEPHEN ALMODOVAR Attending Unavailable Social History Type Status Start Date End Date Code Code Syst em Smoking History Never smoker (Never Smoked) 470497377 SNOMED CT Sex Female Hospital Discharge Instructions [...] AAP0 032Q Active FDA RIGHT PKR 09/30 68CXO73 32Q 03/03/2031 JOURNE Y II UNI 6631354 6 Uncoated unicondyla r knee tibia prosthesis , [place] 0100 8855 5667 7148 1731 1113 1021 KAP0 125D Active FDA RIGHT PKR 09/30 66VBO33 25D 02/02/2031 JOURNE Y II UNI 7512464 9 Uncoated knee femur prosthesis , metallic 0100 8855 5667 5892 1731 1228 1021 MM17 600 Active FDA RIGHT PKR 09/30 [id number] 00 03/19/2031 JOURNE Y II UNI 0938717 6 Orthopaedi c cement, antimicrob ial 0100 8855 5658 2220 1726 1130 1021 MTC0 184 Active FDA RIGHT PKR 09/30 65HMX93 84 02/19/2026 PRAKASH 9060792 0 Allergies and Adverse Reactions Allergy Substance Reaction Severity Start Date Concern Status Co de Code System MELATONIN RASH (SNOMED-CT: null) Active 2647 RxNorm Plan of Treatment LAB DRAW 15MIN 06/09/2023 LAB DRAW 15MIN 06/04/2023 NM MPI STR/RST 06/17/2023 PFT COMPLETE W BROCHODILATER 05/27/2023 X-RAY 05/22/2023 MRI UPPER EXT JOINT W/O CONTRAST 2022 X-RAY 01/09/2022 PRE-OP COVID-19 TESTING 09/27/2021 PRE-OP TESTING 09/02/2021 MRI LOWER EXT W/O CONTRAST 04/10/2021 Encounters Encounter Diagnosis Start Date Code Code Sys tem Other low back pain 09/17/2022 SNOMED-C T Personal Care Team Section Performer Name Performer Role Active Date Inactive Da barrera
--- OUTSIDE RECORDS SUMMARY | 2024-04-19 08:05 | XMS_ITS ---
Author Organization Unknown Address [address] [place] [address] [phone] Phone Care Team Providers Care Flight Communications Officer Name Role Phone BENTLEY Guy Attending Unavailable STEPHEN ALMODOVAR Primary Unavailable Results MR UPPER EXT ANY JOINT RT WO CONTRAST - Completed: 07/09/2022 10:02 LOINC: [facility] [place], [place] [address] PACS HOME COMFORT ADVISOR REPORT Patient Name: JEFFERY IRELAND MRN: Sex: : Age: [id number] F 1950 71 Account: Accession: Admit: StayType: [id number] 07/09/2022 O/P Ordered: Order ID: Submitted: Ordering Provider: 07/09/2022 08:52 [id number] KT BURT HAGAN Completed: Technologist: Resulted: 07/09/2022 10:02 DOLORES 07/09/2022 18:32 Study Description: MR UPPER EXT ANY JOINT RT WO CONTRAST Study Reason: RT SHOULDER PAIN TECHNIQUE: Multiplanar multisequence MRI of the shoulder was performed. COMPARISON: X-rays 04/15/2022 reviewed FINDINGS: MARROW: There is evidence of prior rotator cuff surgery. Fastener channels are noted in the humeral head. No evidence of fracture nor dislocation. No Hill-Sachs deformity. No osseous Bankart lesion. ROTATOR CUFF MECHANISM: AC JOINT/ACROMIUM: Mild degenerative changes in the AC joint.. There is no evidence of os acromiale. Supraspinatus: There is significant thinning of the rotator cuff supraspinatus tendon. Fluid seen traversing the thickness at 1 level. Some fluid noted in the subacromial bursa. No prominent muscle atrophy. Infraspinatus: No tear. Mild atrophy. Teres Minor: Intact. No evidence of tear nor muscle atrophy. Subscapularis/anterior cuff: Intact. No abnormal signal at the level of the multipennate insertional fibers. No significant tear nor atrophy. BICEPS TENDON: There is a tenodesis site in the anterior aspect of the proximal humeral diaphysis. Visualized tendon at this level appears intact. LABRUM: Superior labrum is small. No obvious tear of the posterior labrum. Mild increased signal noted in the anterior labrum. Inferior labrum intact. Inferior glenohumeral ligament appears intact. GLENOHUMERAL JOINT: Moderate degenerative changes with some cartilage loss. Also osteophyte on the inferior tickler surface of the humeral head. No degenerative subarticular cysts evident. QUADRILATERAL SPACE: No evidence of mass in the region of the axillary nerve and dorsal circumflex humeral vessels. Visualized triceps at this level appears unremarkable. IMPRESSION: 1. There is evidence of prior rotator cuff supraspinatus tendon repair as well as biceps tendon tenodesis site in the proximal diaphysis of the humerus evident. 2. There is significant thinning of the supraspinatus tendon. There is fluid traversing the thickness and there is fluid in the in the subacromial bursa. Consistent with significant tearing of the supraspinatus tendon.. Infraspinatus subscapularis appear intact 3. Some labral signal but no prominent labral tears. No evidence of paralabral. Report Digitally Signed by Nato Mendoza on 07/09/2022 06:32 PM EDT Social History Type Status Start Date End Date Code Code Syst em Smoking History Never smoker (Never Smoked) 711724376 SNOMED CT Sex Female Hospital Discharge Instructions [...] AAP0 032Q Active FDA RIGHT PKR 09/30 20MGM50 32Q 03/03/2031 JOURNE Y II UNI 3151070 6 Uncoated unicondyla r knee tibia prosthesis , [place] 0100 8855 5667 7148 1731 1113 1021 KAP0 125D Active FDA RIGHT PKR 09/30 82AXX07 25D 02/02/2031 JOURNE Y II UNI 2823157 9 Uncoated knee femur prosthesis , metallic 0100 8855 5667 5892 1731 1228 1021 MM17 600 Active FDA RIGHT PKR 09/30 [id number] 00 03/19/2031 JOURNE Y II UNI 3237166 6 Orthopaedi c cement, antimicrob ial 0100 8855 5658 2220 1726 1130 1021 MTC0 184 Active FDA RIGHT PKR 09/30 90QYB56 84 02/19/2026 PRAKASH 2685986 0 Allergies and Adverse Reactions Allergy Substance [...] Diagnosis Start Date Code Code Sys tem Abnormal findings on diagnos tic imaging of other parts of musculoskeletal system 07/09/2022 SNOMED-CT Personal Care Team Section Performer Name Performer Role Active Date Inactive Da te
--- OUTSIDE RECORDS SUMMARY | 2024-04-19 08:05 | XMS_ITS ---
Author Organization Unknown Address [address] [place] [address] [phone] Phone Care Team Providers Care Final Assembly Worker Name Role Phone BENTLEY Guy Attending Unavailable STEPHEN ALMODOVAR Primary Unavailable Social History Type Status Start Date End Date Code Code Syst em Smoking History Never smoker (Never Smoked) 496374858 SNOMED CT Sex Female Hospital Discharge Instructions [...] AAP0 032Q Active FDA RIGHT PKR 09/30 15OZK51 32Q 03/03/2031 JOURNE Y II UNI 2002454 6 Uncoated unicondyla r knee tibia prosthesis , [place] 0100 8855 5667 7148 1731 1113 1021 KAP0 125D Active FDA RIGHT PKR 09/30 81POL54 25D 02/02/2031 JOURNE Y II UNI 2870273 9 Uncoated knee femur prosthesis , metallic 0100 8855 5667 5892 1731 1228 1021 MM17 600 Active FDA RIGHT PKR 09/30 [id number] 00 03/19/2031 JOURNE Y II UNI 1648049 6 Orthopaedi c cement, antimicrob ial 0100 8855 5658 2220 1726 1130 1021 MTC0 184 Active FDA RIGHT PKR 09/30 14SXA19 84 02/19/2026 PRAKASH 1594001 0 Allergies and Adverse Reactions Allergy Substance Reaction Severity Start Date Concern Status Co de Code System MELATONIN RASH (SNOMED-CT: null) Active 6317 RxNorm Plan of Treatment LAB DRAW 15MIN 06/09/2023 LAB DRAW 15MIN 06/04/2023 NM MPI STR/RST 06/17/2023 PFT COMPLETE W BROCHODILATER 05/27/2023 X-RAY 05/22/2023 MRI UPPER EXT JOINT W/O CONTRAST 2022 X-RAY 01/09/2022 PRE-OP COVID-19 TESTING 09/27/2021 PRE-OP TESTING 09/02/2021 MRI LOWER EXT W/O CONTRAST 04/10/2021 Encounters Encounter Diagnosis Start Date Code Code Sys tem 07/22/2022 [id number] SNOMED-CT Personal Care Team Section Performer Name Performer Role Active Date Inactive Da barrera
--- OUTSIDE RECORDS SUMMARY | 2024-04-19 08:06 | XMS_ITS ---
Author Organization Unknown Address [address] [place] [phone] Phone Care Team Providers Care Tightening Machine Operator Name Role Phone PRERNA Mary Attending Unavailable STEPHEN ALMODOVAR Primary Unavailable Results XR CHEST 2V PA AND LATERAL - Completed: 05/22/2023 17:36 LOINC: [facility] [place], [place] [address] PACS DESK OFFICER REPORT Patient Name: JEFFERY IRELAND MRN: Sex: : Age: [id number] F 1950 72 Account: Accession: Admit: StayType: [id number] 05/22/2023 O/P Ordered: Order ID: Submitted: Ordering Provider: 05/22/2023 13:55 [id number] MICKY SALVADOR Completed: Technologist: Resulted: 05/22/2023 13:55 05/22/2023 14:15 Study Description: XR CHEST 2V PA AND LATERAL Study Reason: R TECHNIQUE: 2D Digital imaging Number of views: 2 Views COMPARISON: 08 September 2018 FINDINGS: LUNGS: Clear. PLEURA: No pleural abnormality seen. HEART: Normal size. AORTA: Normal diameter. BONES: Unremarkable for age. SOFT TISSUES: Unremarkable. IMPRESSION: No acute findings. Report Digitally Signed by Izzy Paul on 05/22/2023 02:15 PM EST Social History Type Status Start Date End Date Code Code Syst em Smoking History Never smoker (Never Smoked) 122939744 SNOMED CT Sex Female Hospital Discharge Instructions [...] AAP0 032Q Active FDA RIGHT PKR 09/30 [id number] 32Q 03/03/2031 JOURNE Y II UNI 0924254 6 Uncoated unicondyla [place] knee tibia prosthesis , [place] 0100 8855 5667 7148 1731 1113 1021 KAP0 125D Active FDA RIGHT PKR 09/30 99ULX16 25D 02/02/2031 JOURNE Y II UNI 8599629 9 Uncoated knee femur prosthesis , metallic 0100 8855 5667 5892 1731 1228 1021 MM17 600 Active FDA RIGHT PKR 09/30 [id number] 00 03/19/2031 JOURNE Y II UNI 5987970 6 Orthopaedi c cement, antimicrob ial 0100 8855 5658 2220 1726 1130 1021 MTC0 184 Active FDA RIGHT PKR 09/30 [id number] 84 02/19/2026 [facility] 6191672 0 Allergies and Adverse Reactions Allergy Substance [...] Diagnosis Start Date Code Code Sys tem Dyspnea 05/22/2023 [id number] SNOMED-CT Personal Care Team Section Performer Name Performer Role Active Date Inactive Da te
--- OUTSIDE RECORDS SUMMARY | 2024-04-19 08:06 | XMS_ITS ---
Author Organization Unknown Address [address] [place] [address] [phone] Phone Care Team Providers Care Assistant Signal Maintainer Name Role Phone BENTLEY Guy Attending Unavailable STEPHEN ALMDOOVAR Primary Unavailable Social History Type Status Start Date End Date Code Code Syst em Smoking History Never smoker (Never Smoked) 558539329 SNOMED CT Sex Female Hospital Discharge Instructions [...] AAP0 032Q Active FDA RIGHT PKR 09/30 68ZSE23 32Q 03/03/2031 JOURNE Y II UNI 4092668 6 Uncoated unicondyla r knee tibia prosthesis , [place] 0100 8855 5667 7148 1731 1113 1021 KAP0 125D Active FDA RIGHT PKR 09/30 24DLC15 25D 02/02/2031 JOURNE Y II UNI 0500051 9 Uncoated knee femur prosthesis , metallic 0100 8855 5667 5892 1731 1228 1021 MM17 600 Active FDA RIGHT PKR 09/30 [id number] 00 03/19/2031 JOURNE Y II UNI 2410459 6 Orthopaedi c cement, antimicrob ial 0100 8855 5658 2220 1726 1130 1021 MTC0 184 Active FDA RIGHT PKR 09/30 51MRK39 84 02/19/2026 PRAKASH 6136252 0 Allergies and Adverse Reactions Allergy Substance Reaction Severity Start Date Concern Status Co de Code System MELATONIN RASH (SNOMED-CT: null) Active 6038 RxNorm Plan of Treatment LAB DRAW 15MIN 06/09/2023 LAB DRAW 15MIN 06/04/2023 NM MPI STR/RST 06/17/2023 PFT COMPLETE W BROCHODILATER 05/27/2023 X-RAY 05/22/2023 MRI UPPER EXT JOINT W/O CONTRAST 2022 X-RAY 01/09/2022 PRE-OP COVID-19 TESTING 09/27/2021 PRE-OP TESTING 09/02/2021 MRI LOWER EXT W/O CONTRAST 04/10/2021 Encounters Encounter Diagnosis Start Date Code Code Sys tem Pain in right shoulder 05/25/2023 SNOME D-CT Personal Care Team Section Performer Name Performer Role Active Date Inactive Da barrera
--- OUTSIDE RECORDS SUMMARY | 2024-04-19 08:06 | XMS_ITS ---
Author Organization Unknown Address [address] [place] [address] [phone] Phone Care Team Providers Care Manager Machine Name Role Phone PRERNA Mary Attending Unavailable STEPHEN ALMODOVAR Primary Unavailable Social History Type Status Start Date End Date Code Code Syst em Smoking History Never smoker (Never Smoked) 606641685 SNOMED CT Sex Female Hospital Discharge Instructions [...] AAP0 032Q Active FDA RIGHT PKR 09/30 15JOI03 32Q 03/03/2031 JOURNE Y II UNI 0974912 6 Uncoated unicondyla r knee tibia prosthesis , [place] 0100 8855 5667 7148 1731 1113 1021 KAP0 125D Active FDA RIGHT PKR 09/30 20LJK65 25D 02/02/2031 JOURNE Y II UNI 7861959 9 Uncoated knee femur prosthesis , metallic 0100 8855 5667 5892 1731 1228 1021 MM17 600 Active FDA RIGHT PKR 09/30 77JX585 00 03/19/2031 JOURNE Y II UNI 2593379 6 Orthopaedi c cement, antimicrob ial 0100 8855 5658 2220 1726 1130 1021 MTC0 184 Active FDA RIGHT PKR 09/30 16VQO78 84 02/19/2026 PRAKASH 9500320 0 Allergies and Adverse Reactions Allergy Substance Reaction Severity Start Date Concern Status Co de Code System MELATONIN RASH (SNOMED-CT: null) Active 0316 RxNorm Plan of Treatment LAB DRAW 15MIN 06/09/2023 LAB DRAW 15MIN 06/04/2023 NM MPI STR/RST 06/17/2023 PFT COMPLETE W BROCHODILATER 05/27/2023 X-RAY 05/22/2023 MRI UPPER EXT JOINT W/O CONTRAST 2022 X-RAY 01/09/2022 PRE-OP COVID-19 TESTING 09/27/2021 PRE-OP TESTING 09/02/2021 MRI LOWER EXT W/O CONTRAST 04/10/2021 Encounters Encounter Diagnosis Start Date Code Code Sys tem Bradycardia 05/21/2023 36502372 SNOMED-CT Personal Care Team Section Performer Name Performer Role Active Date Inactive Da barrera
--- OUTSIDE RECORDS SUMMARY | 2024-04-19 08:06 | XMS_ITS ---
Author Organization Unknown Address [address] [place] [address] [phone] Phone Care Team Providers Care Chute Boss Name Role Phone HOME GALVEZ Attending Unavailable STEPHEN ALMODOVAR Primary Unavailable Results XR KNEE 3V RT* - Completed: 10/30/2022 15:34 LOINC: [facility] [place], [place] [address] PACS OIL GAUGER REPORT Patient Name: JEFFERY IRELAND MRN: Sex: : Age: [id number] F 1950 72 Account: Accession: Admit: StayType: [id number] 10/30/2022 CLINIC Ordered: Order ID: Submitted: Ordering Provider: 10/30/2022 15:18 [id number] KLENNY LARA Completed: Technologist: Resulted: 10/30/2022 15:34 KXR 10/30/2022 16:29 Study Description: XR KNEE 3V RT Study Reason: Pain Technique: 2D digital imaging was performed. 3 images were obtained. COMPARISON: 07 November 2017 FINDINGS: There has been no change in the alignment of the medial femoral-tibial joint space prosthesis. There are no abnormal surrounding bony lucencies. The lateral femoral-tibial joint space is maintained. There is mild spurring at the articular aspect of the patella. The patellofemoral joint is suboptimally profiled but appears maintained. No effusion is visible. Impression: Stable appearance of right medial femoral-tibial joint space prosthesis. Report Digitally Signed by Izzy Paul on 10/30/2022 04:29 PM EDT Social History Type Status Start Date End Date Code Code Syst em Smoking History Never smoker (Never Smoked) 583333534 SNOMED CT Sex Female Hospital Discharge Instructions [...] AAP0 032Q Active FDA RIGHT PKR 09/30 81XNE01 32Q 03/03/2031 JOURNE Y II UNI 5892552 6 Uncoated unicondyla r knee tibia prosthesis , [place] 0100 8855 5667 7148 1731 1113 1021 KAP0 125D Active FDA RIGHT PKR 09/30 68HGB59 25D 02/02/2031 JOURNE Y II UNI 4645697 9 Uncoated knee femur prosthesis , metallic 0100 8855 5667 5892 1731 1228 1021 MM17 600 Active FDA RIGHT PKR 09/30 [id number] 00 03/19/2031 JOURNE Y II UNI 4196897 6 Orthopaedi c cement, antimicrob ial 0100 8855 5658 2220 1726 1130 1021 MTC0 184 Active FDA RIGHT PKR 09/30 72XGU28 84 02/19/2026 PRAKASH 7852069 0 Allergies and Adverse Reactions Allergy Substance [...] Code Sys tem Artificial knee joint present 10/30/2022 [id number] 2 SNOMED-CT Personal Care Team Section Performer Name Performer Role Active Date Inactive Da te
--- OUTSIDE RECORDS SUMMARY | 2024-04-19 08:07 | XMS_ITS ---
Author Organization Unknown Address [address] [place] [address] [phone] Phone Care Team Providers Care Museum Tour Guide Name Role Phone JESENIA ABDALLA Attending Unavailable Results KNEE RIGHT MIN 4V - Complete d: 11/20/2020 17:30 LOINC: Four views were obtained. Th ere appears to be mild narrowing of the cartilaginous joint spaces of the patellofemoral joint and medial tibiofemoral joint. Minimal marginal osteophyte formation noted involving all 3 joints of the knee. No other bony or soft tissue abnormality is seen. CONCLUSION:Mild DJD as described above. Dictated by: OLAF CABRERA M.D. RADIOLOGIST Transcribed by: CLARITZA 11/20/2011:42 d Friday, November 20, 2020 10:45:08 AM [id number] Electronically Reviewed and Signed By: LESLEY CABRERA M.D. RADIOLOGIST 11/20/20 11:53 Copy for: JESENIA ABDALLA via fax Social History Type Status Start Date End Date Code Code Syst em Smoking History Never smoker (Never Smoked) 637519999 SNOMED CT Sex Female Hospital Discharge Instructions [...] AAP0 032Q Active FDA RIGHT PKR 09/30 94VDS48 32Q 03/03/2031 JOURNE Y II UNI 7732618 6 Uncoated unicondyla r knee tibia prosthesis , [place] 0100 8855 5667 7148 1731 1113 1021 KAP0 125D Active FDA RIGHT PKR 09/30 45MLT55 25D 02/02/2031 JOURNE Y II UNI 4727250 9 Uncoated knee femur prosthesis , metallic 0100 8855 5667 5892 1731 1228 1021 MM17 600 Active FDA RIGHT PKR 09/30 79VU692 00 03/19/2031 JOURNE Y II UNI 3927432 6 Orthopaedi c cement, antimicrob ial 0100 8855 5658 2220 1726 1130 1021 MTC0 184 Active FDA RIGHT PKR 09/30 48XST18 84 02/19/2026 PRAKASH 4305964 0 Allergies and Adverse Reactions Allergy Substance [...] Sys tem Unilateral primary osteoarthritis, right knee 11/21/19 21 SNOMED-CT Personal Care Team Section Performer Name Performer Role Active Date Inactive Da te
--- OUTSIDE RECORDS SUMMARY | 2024-04-19 08:07 | XMS_ITS | Clinical Summary ---
Author Organization [facility] Address [address] [place] [address] Care Team Providers Care Electro Plater Name Role Phone Kimi Deleon MD Unavailable [phone] Hannah Batres NP Unavailable [phone] Millie Hilton MD Primary Care Provider [phone] Allergies Active Allergy Reactions Criticality Noted Date Comments Animal Dander 11/24/2018 To include: horses and cats Cat Dander 11/24/2018 Other reaction(s): Unknown Horse Dander 09/21/2021 Melatonin Rash 07/29/2010 Medications Multivitamins with Minerals tablet tablet Take 1 Tablet by mouth daily. (contains calcium 25 mg, vitamin D 1000 iu) Active acetaminophen (TYLENOL) 325 mg tablet Take by mouth as needed for Pain. Active denosumab 60 mg/mL syringe syringe Inject 1 mL into the skin every 6 months. (started 12/16/18 at [facility]) Active Fish Oil-[place]-3 Fatty Acids 360-1,200 mg capsule 1360mg, 2 caps by mouth daily Active GLYCINE ORAL Take 1,500 mg by mouth at bedtime. Active magnesium glycinate-mag oxide 120 mg magnesium capsule Take 240 mg by mouth 2 times daily. Active aflibercept (EYLEA) 2 mg/0.05 mL 0.05 mL by intravitreal route Once. Active vitamin B complex (B COMPLEX 1 ORAL) Take 1 caplet by mouth daily. Active calcium carbonate/katy min D3 (CALCIUM 500 + D ORAL) Take 1 caplet by mouth 2 times daily. Active COQ10, UBIQUINOL, ORAL Take by mouth daily. Active rosuvastatin (CRESTOR) 10 mg tablet Take 1 Tablet by mouth daily. 02/02/20 24 Active anastrozole (ARIMIDEX) 1 mg tabletIndicati ons:Malignant neoplasm of upper-outer quadrant of right breast in female, estrogen receptor positive (HCC-CMS) TAKE 1 TABLET BY MOUTH DAILY 90 Tablet 3 06/30/19 24 025 Discontinued Active Problems Problem Noted Date Diagnosed Date Nuclear sclerosis of both eyes 02/19/2021 Exudative age-related macula r degeneration of both eyes with active choroidal neovascularization (HCC-CMS) 03/01/2020 Estrogen receptor positive status (ER+) 08/09/19 20 Family history of breast cancer 08/09/2019 Overview (08/09/2019): a- Mother diagnosed with breast cancer in her 70s in her 90s. b- Sister diagnosed with breast cancer in her 40s in her mid 50s. c- Father of leukemia in his 60s. d- Remaining 2 brothers 2 sisters and 2 sons all healthy. e- 09/2018 Referral to the [facility] cancer center: Genetic results negative for inherited mutations Malignant neoplasm of upper- outer quadrant of female breast (HCC-CMS) 08/09/2019 Overview (08/09/2019): Right breast invasive ductal carcinoma, stage IA. pT1c (1.8 cm), pN0 (sn), M0. ER positive, HI positive HER-2 negative. Histologic grade 2, margins: neg, LVI: neg. a- 08/20/2018 screening mammogram category 4, right upper quadrant right breast, nonpalpable lesion. b- 08/2018 core biopsy, Dr. San. c- 09/21/2018 Lumpectomy and sentinel node biopsy. Dr. San. d-10/12/2018 Oncotype DX: RS 16 (low). Referral to Dr. Sagastume e- 11/23/18 Completed Adjuvant RT, Dr Sagastume. f- 11/24/18 Start Tamoxifen x 5 yr. Osteoporosis without current pathological fractu re 04/06/2017 Overview (08/09/2019): a- [id number] Forteo. b- 08/2018 Spine T score -3.5. Considering Prolia. Personal history of other malignant neoplasm of skin 02/12/2009 Overview (02/12/2009): resolved Seborrheic keratoses 02/12/2009 Overview (12/21/2014): ICD10 Update Auto Replacement Resolved Problems Problem Noted Date Diagnosed Date Resolved Date Intermediate stage nonexudat jack age-related macular degeneration of left eye 03/01/2020 021 Encounters Date Type Department Care Team Description 04/12/2024 14:00 EST Office Visit [facility] Ophthalmology [address] [id number] Marcial Magaña MD 03/30/2024 14:20 EST Office Visit [facility] [address] [id number] Xena Nieves PA-C Malignant neoplasm of upper-outer quadrant of right breast in female, estrogen receptor positive (HCC-CMS) (Primary Dx); Other osteoporosis without current pathological fracture 03/03/2024 Telephone [facility] [address] [id number] Abebe Ralph MD Appointment Related 01/25/2024 10:15 EST Office Visit [facility] [address] [phone] Abebe Ralph MD Malignant neoplasm of upper-outer quadrant of right breast in female, estrogen receptor positive (HCC-CMS) (Primary Dx) 01/25/2024 9:45 EST Phlebotomy Only [facility] [address] [phone] Blood Doctor, [facility] Malignant neoplasm of upper-outer quadrant of right breast in female, estrogen receptor positive (HCC-CMS); Estrogen receptor positive status (ER+); Other joint terminal attack controller (current) drug therapy 01/25/2024 9:39 EST - 01/25/2024 23:59 EST Hospital Encounter [facility] [address] [phone] Age-related osteoporosis without current pathological fracture (Primary Dx); Estrogen receptor positive status (ER+); Other osteoporosis without current pathological fracture Discharge Disposition: Home or Self Care 01/25/2024 Telephone [facility] On[facility] [address] [address] Abebe Ralph MD Appointment Related 01/18/2024 Orders Only [facility] [address] [address] Tatianna Devine, CÉSAR Malignant neoplasm of upper-outer quadrant of right breast in female, estrogen receptor positive (HCC-CMS) (Primary Dx); Estrogen receptor positive status (ER+); Other custodial (current) drug therapy from Last 3 Months Immunizations Name Administration Dates Next Due Influenza Vaccine High Dose (FLUZONE HIGH DOSE) PF 0.7 ml IM (65 yrs+) 02/02/2019 Shingrix (Zoster Vaccine, Recombinant) IM 2018,02/08/2018 Surgical History Surgery Date Site/Laterality Comments MOHS SURGERY 09/09/2007 Left lower eyelid BCC JOINT REPLACEMENT shoulder repair 2012 BREAST BIOPSY Right RADIATION THERAPY OF BREAST Right BREAST LUMPECTOMY Right AXILLARY NODE DISSECTION Right NM SENTINEL NODE IMAGING Right Medical History Medical History Date Comments Basal cell carcinoma 07/09/2007 Left lower eyelid Dermatologic disease basal cell on eyelid removed Breast cancer, right (HCC-CMS) Nuclear sclerosis of both eyes 02/19/2021 Family History Medical History Relation Comments Macular Degeneration Brother Cancer Father Macular Degeneration Maternal Uncle Arthritis Mother Breast Cancer Mother Cancer Mother Hypertension Mother Breast Cancer Sister Cancer Sister Macular Degeneration Sister Blindness Neg Hx Glaucoma Neg Hx Retinal Detachment Neg Hx Relation Status Comments Brother Alive Father Maternal Uncle Mother Alive Sister Social History Tobacco Use Types Packs/Day Years Used Date Smoking Tobacco: Never Smokeless Tobacco: Never Tobacco Cessation:Counseling Given: Not Answered Alcohol Use Standard Drinks/Week Comments Yes 0 (1 standard drink = 0.6 oz pur e alcohol) once a week to once a month AUDIT-C Answer Date Recorded Q1: How often do you have a drink containing alcohol? 4 or more times a week 08/10/2020 Q2: How many drinks containi ng alcohol do you have on a typical day when you are drinking? 1 or 2 Q3: How often do you have si x or more drinks on one occasion? Never 08/10/2020 Interpersonal Safety Answer Date Record ed Physically Hurt Never 10/23/2019 Verbally Threaten Not on file 10/23/2019 Comments No Sex and Gender Information Value Date Recorded Sex Assigned at Female 09/10/2021 20:11 EDT Legal Sex Female 18:22 EST Gender Identity Female 02/23/2020 15:23 EST Sexual Orientation Straight 09/10/2021 20 :11 EDT Obstetrics History Para Term AB IAB SAB Ectopic Multiple Livin g Live Births 2 2 Date Outcome GA Total Labor Labor/2nd/3rd Weight Sex Type Anes PTL Mandi A1 A5 Name Clin Para Para Last Filed Vital Signs Vital Sign Reading Time Taken Comments Blood Pressure 157/70 03/30/2024 1414 EST Pulse 46 03/30/2024 1414 EST Temperature 36.8 ??C (98.2 ??F) 03/30/2024 1414 EST Respiratory Rate 16 03/30/2024 1414 EST Oxygen Saturation 100% 03/30/2024 1414 EST Inhaled Oxygen Concentration - - Weight 67.6 kg (149 lb) 03/30/2024 1414 EST Height 163.4 cm (5' 4.33) 01/25/2024 0949 EST Body Mass Index 25.31 01/25/2024 0949 EST Plan of Treatment Upcoming Encounters Date Type Department Care Team (Late st Contact Info) Description 07/21/2024 11:00 EDT Office Visit [facility] Ophthalmology - [address] [address] Marcial Magaña MD [address] [place] [address], [address] [place] [phone] 07/25/2024 11:00 EDT Phlebotomy Only [facility] - [address] [address] Blood Doctor, [facility] Hem Onc 07/25/2024 11:45 EDT Office Visit [facility] - [address] [phone] Abebe Ralph MD [address] [facility], [address] [place] [phone] 07/25/2024 12:30 EDT Appointment [facility] - [address] [phone] 01/03/2025 16:20 EDT Appointment [facility] Breast Imaging Mammography - [address] [phone] Health Maintenance Due Date Last Done Comments Hepatitis C Screen 1950 RSV Immunization ( o r 60+ Years) (1 - 1-dose 75+ series) 10/22/2023 Fall Risk Screening 01/24/2025 01/25/2024, 07/27/2023, 09/11/2021, Additional history exists COVID-19 Vaccine Completed 03/25/2024, , 05/18/2020 Procedures Procedure Name Priority Date/Time Associated Diagnosis Comments INTRAVITREAL INJECTION, PHARMACOLOGIC AGENT - OU - BOTH EYES Routine 04/12/2024 15:03 EST Exudative age-related macular degeneration of both eyes with active choroidal neovascularization (HCC-CMS) OCT, RETINA - OU - BOTH EYES Routine 04/12/2024 14:44 EST Exudative age-related macular degeneration of both eyes with active choroidal neovascularization (HCC-CMS) PHOSPHORUS STAT 01/25/2024 9:46 EST Age-related osteoporosis without current pathological fracture LIPID PROFILE (INCLUDES CHOLESTEROL, TRIGLYCERIDES, HDL, LDL) STAT 01/25/2024 9:46 EST Malignant neoplasm of upper-outer quadrant of right breast in female, estrogen receptor positive (HCC-CMS) Estrogen receptor positive status (ER+) Other custodial (current) drug therapy COMPREHENSIVE METABOLIC PANEL (ONCOLOGY USE ONLY-INC MG) STAT 01/25/2024 9:46 EST Malignant neoplasm of upper-outer quadrant of right breast in female, estrogen receptor positive (HCC-CMS) Estrogen receptor positive status (ER+) COMPLETE BLOOD COUNT AND DIFFERENTIAL STAT 01/25/2024 9:46 EST Malignant neoplasm of upper-outer quadrant of right breast in female, estrogen receptor positive (HCC-CMS) Estrogen receptor positive status (ER+) from Last 3 Months Results * INTRAVITREAL INJECTION, PHARMACOLOGIC AGENT - OU - BOTH EYES (04/12/2024 15:03 EST) Narrative [facility] POINT OF CARE - 04/12/2024 16:02 EST Time Out 04/12/2024. 15:01. Confirmed correct patient, procedure, site, and patient consented. Anesthesia Right Eye Topical anesthesia was used. Anesthetic medications included Proparacaine 0.5%, Tetracaine 0.5%. Left Eye Topical anesthesia was used. Anesthetic medications included Proparacaine 0.5%, Tetracaine 0.5%. Procedure Right Eye Preparation included 5% betadine to ocular surface, eyelid speculum. A 30 gauge needle was used. Injection: 8 mg aflibercept 8 mg/0.07 mL ??Route: intravitreal, Site: Right Eye ??[facility]: 95506-505-77, Lot: [id number], Expiration date: 03/22/2025 Left Eye Preparation included 5% betadine to ocular surface, eyelid speculum. A 30 gauge needle was used. Injection: 8 mg aflibercept 8 mg/0.07 mL ??Route: intravitreal, Site: Left Eye ??[facility]: 46114-151-06, Lot: [id number], Expiration date: 01/20/2025 Post-op Right Eye Post injection exam found visual acuity of at least counting fingers. The patient tolerated the procedure well. There were no complications. The patient received written and verbal post procedure care education. Post injection medications were not given. Left Eye Post injection exam found visual acuity of at least counting fingers. The patient tolerated the procedure well. There were no complications. The patient received written and verbal post procedure care education. Post injection medications were not given. Marcial Magaña MD OPHTH CLINIC PROCEDURES Final Re sult Performing Organization Address City/[facility]/ZIP Co de Phone Number [facility] POINT OF CARE * OCT, RETINA - OU - BOTH EYES (04/12/2024 14:44 EST) Narrative [facility] OPHTHALMOLOGY - 04/12/2024 16:03 EST Right Eye Quality was good. Scan locations included subfoveal. Progression has been stable. Findings include pigment epithelial detachment. Left Eye Quality was good. Scan locations included juxtafoveal. Progression has been stable. Findings include pigment epithelial detachment. Notes No fluid both eyes Marcial Magaña MD OPHTH TOMOGRAPHY Final Result Performing Organization Address [facility] Co de Phone Number [facility] OPHTHALMOLOGY * COMPREHENSIVE METABOLIC PANEL (ONCOLOGY USE ONLY-INC MG) (01/25/2024 9:46 EST) Sodium 139 136 - 145 mmol/L 01/25/2024 10:10 [facility] Potassium 4.5 3.5 - 5.0 mmol/L 01/25/2024 10:10 [facility] Chloride 107 96 - 110 mmol/L 01/25/2024 10:10 [facility] CO2 Total 26 22 - 32 mmol/L 01/25/2024 10:10 [facility] Glucose 99 70 - 99 mg/dl 01/25/2024 10:10 [facility] BUN 19 10 - 26 mg/dL 01/25/2024 10:10 [facility] Creatinine 0.71 0.52 - 1.04 mg/dL 01/25/2024 10:10 [facility] eGFR 89 >60 mL/min/1.7 3m2 01/25/2024 10:10 [facility] Total Protein 7.4 6.3 - 8.2 g/dL 01/25/2024 10:10 [facility] Albumin 4.6 3.4 - 4.9 g/dL 01/25/2024 10:10 [facility] Alkaline Phosphatase 45 38 - 126 U/L 01/25/2024 10:10 [facility] AST 25 15 - 46 U/L 01/25/2024 10:10 [facility] ALT 18 <35 U/L 01/25/2024 10:10 [facility] Bilirubin, Total 0.5 <1.4 mg/dL 01/25/20 10:10 [facility] Calcium 9.5 8.5 - 10.5 mg/dL 01/25/2024 10:10 [facility] Magnesium 2.2 1.7 - 2.8 mg/dL 01/25/2024 10:10 [facility] Albumin/Globulin Ratio 1.6 1.0 - 2.5 01/25/2024 10:10 [facility] Anion Gap 6 5 - 14 mmol/L 01/25/2024 10:10 [facility] Blood VENOUS BLOOD / Unknown Venipuncture / Unknown 01/25/2024 9:46 EST 01/25/2024 9:52 EST Abebe Ralph MD CHEMISTRY & BLOOD GAS ORDERAB LES Final Result [facility] [address] [place] [address] * COMPLETE BLOOD COUNT AND DIFFERENTIAL (01/25/2024 9:46 EST) WBC 5.05 4.00 - 12.40 K/cmm 01/25/2024 10:07 [facility] RBC 4.24 3.86 - 5.04 M/cmm 01/25/2024 10:07 [facility] Hemoglobin 13.5 11.6 - 15.2 g/dL 01/25/2024 10:07 [facility] HCT 39.1 34.9 - 44.4 % 01/25/2024 10:07 [facility] MCV 92 81 - 98 fL 01/25/2024 10:07 [facility] MCH 31.8 26.7 - 33.3 pg 01/25/2024 10:07 [facility] MCHC 34.5 32.1 - 35.9 g/dL 01/25/2024 10:07 [facility] RDW-CV 13.5 <14.7 % 01/25/2024 10:07 [facility] RDW-SD 45.8 <50.4 fl 01/25/2024 10:07 [facility] PLT 232 141 - 377 K/cmm 01/25/2024 10:07 [facility] MPV 10.8 9.5 - 12.7 fL 01/25/2024 10:07 [facility] % Neutrophils 45.3 Not Indicated % 01/25/2024 10:07 [facility] % Lymphocytes 43.0 Not Indicated % 01/25/2024 10:07 [facility] % Monocytes 9.1 Not Indicated % 01/25/2024 10:07 [facility] % Eosinophils 2.0 Not Indicated % 01/25/2024 10:07 [facility] % Basophils 0.4 Not Indicated % 01/25/2024 10:07 [facility] % Immature Grans 0.2 Not Indicated % 01/25/2024 10:07 [facility] Absolute Neutrophils 2.29 2.20 - 8.85 K/cmm 01/25/2024 10:07 [facility] Absolute Lymphocytes 2.17 1.09 - 3.30 K/cmm 01/25/2024 10:07 [facility] Absolute Monocytes 0.46 0.10 - 0.80 K/cmm 01/25/2024 10:07 [facility] Absolute Eosinophils 0.10 0.03 - 0.61 K/cmm 01/25/2024 10:07 [facility] ABS Basophils 0.02 0.01 - 0.11 K/cmm 01/25/2024 10:07 [facility] Absolute Immature Grans 0.01 0.00 - 0.06 K/cmm 01/25/2024 10:07 [facility] Type of Differential: Auto 01/25/2024 10:07 [facility] Blood VENOUS BLOOD / Unknown Venipuncture / Unknown 01/25/2024 9:46 EST 01/25/2024 9:52 EST Abebe Ralph MD PACKAGES & DNA PROBE ORDERABL ES Final Result Performing Organization Address City/[facility] Co de Phone Number [facility] [address] [place] [address] * PHOSPHORUS (01/25/2024 9:46 EST) Pathologist [facility] Phosphorus 3.6 2.5 - 4.5 mg/dL 01/25/2024 11:15 [facility] Blood VENOUS BLOOD / Unknown Venipuncture / Unknown 01/25/2024 9:46 EST 01/25/2024 9:52 EST us Abebe Ralph MD CHEMISTRY & BLOOD GAS ORDERAB LES Final Result Performing Organization Address [facility] Co de Phone Number [facility] [address] [place] [phone] * (ABNORMAL) LIPID PROFILE (INCLUDES CHOLESTEROL, TRIGLYCERIDES, HDL, LDL) (01/25/2024 9:46 EST) Cholesterol 228(H) <200 mg/dL 01/25/2024 10:10 [facility] Comment:Note that therapeuti c goals will differ between patients based on cardiac risk factors and current medical therapy. HDL 53 >=50 mg/dl 01/25/2024 10:10 [facility] Comment:Note that therapeuti c goals will differ between patients based on cardiac risk factors and current medical therapy. LDL, Calculated 157 <160 mg/dL 10:10 [facility] Comment:Note that therapeuti c goals will differ between patients based on cardiac risk factors and current medical therapy. Triglyceride 90 <=150 mg/dL 01/25/2024 10:10 EST [facility] Comment:Note that therapeuti c goals will differ between patients based on cardiac risk factors and current medical therapy. Chol/HDL Ratio 4.3 See Note 01/25/2024 10:10 [facility] Comment:No reference range h as been established for CHOL/HDL ratio. Non HDL Cholesterol 175(H) <160 mg/dL 01/25/2024 10:10 EST [facility] Comment:Note that therapeuti c goals will differ between patients based on cardiac risk factors and current medical therapy. Blood VENOUS BLOOD / Unknown Venipuncture / Unknown 01/25/2024 9:46 EST 01/25/2024 9:52 EST us Abebe Ralph MD CHEMISTRY & BLOOD GAS ORDERAB LES Final Result [facility] [address] [place] [address] from Last [address] [facility]IC[address] 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
--- OUTSIDE RECORDS SUMMARY | 2024-04-19 08:07 | XMS_ITS ---
Author Organization Unknown Address [address] [place] [phone] Phone Care Team Providers Care Liner Roll Changer Name Role Phone PRERNA Mary Attending Unavailable STEPHEN ALMODOVAR Primary Unavailable Social History Type Status Start Date End Date Code Code Syst em Smoking History Never smoker (Never Smoked) [id number] SNOMED CT Sex Female Hospital Discharge Instructions [...] AAP0 032Q Active FDA RIGHT PKR 09/30 [id number] 03/03/2031 JOURNE Y II UNI [id number] 6 Uncoated unicondyla [place] knee tibia prosthesis , [place] [address] 8855 5667 7148 1731 1113 1021 KAP0 125D Active FDA RIGHT PKR 09/30 [id number] [id number] 02/02/2031 JOURNE Y II UNI [id number] 9 Uncoated knee femur prosthesis , metallic 0100 8855 5667 5892 1731 1228 1021 MM17 600 Active FDA RIGHT PKR 09/30 [id number] 03/19/2031 JOURNE Y II UNI [id number] 6 Orthopaedi c cement, antimicrob ial 0100 8855 5658 2220 1726 1130 1021 MTC0 184 Active FDA RIGHT PKR 09/30 [id number] 02/19/2026 PRAKASH [id number] 0 Allergies and Adverse Reactions Allergy Substance Reaction Severity Start Date Concern Status Co de Code System MELATONIN RASH (SNOMED-CT: null) Active 1554 RxNorm Plan of Treatment LAB DRAW 15MIN 06/09/2023 LAB DRAW 15MIN 06/04/2023 NM MPI STR/RST 06/17/2023 PFT COMPLETE W BROCHODILATER 05/27/2023 X-RAY 05/22/2023 MRI UPPER EXT JOINT W/O CONTRAST 2022 X-RAY 01/09/2022 PRE-OP COVID-19 TESTING 09/27/2021 PRE-OP TESTING 09/02/2021 MRI LOWER EXT W/O CONTRAST 04/10/2021 Encounters Encounter Diagnosis Start Date Code Code Sys tem Other forms of dyspnea 05/27/2023 SNOME D-CT Personal Care Team Section Performer Name Performer Role Active Date Inactive Da barrera
--- OUTSIDE RECORDS SUMMARY | 2024-04-19 08:07 | XMS_ITS ---
Author Organization Unknown Address [address] [place] [phone] Phone Care Team Providers Care Submarine Advisory Team Watch Officer Name Role Phone JESENIA ABDALLA Attending Unavailable Social History Type Status Start Date End Date Code Code Syst em Smoking History Never smoker (Never Smoked) 202716891 SNOMED CT Sex Female Hospital Discharge Instructions [...] AAP0 032Q Active FDA RIGHT PKR 09/30 [id number] 32Q 03/03/2031 JOURNE Y II UNI 1087704 6 Uncoated unicondyla r knee tibia prosthesis , [place] ne 0100 8855 5667 7148 1731 1113 1021 KAP0 125D Active FDA RIGHT PKR 09/30 [id number] 25D 02/02/2031 JOURNE Y II UNI [id number] 9 Uncoated knee femur prosthesis , metallic 0100 8855 5667 5892 1731 1228 1021 MM17 600 Active FDA RIGHT PKR 09/30 [id number] 00 03/19/2031 JOURNE Y II UNI [id number] 6 Orthopaedi c cement, antimicrob ial 0100 8855 5658 2220 1726 1130 1021 MTC0 184 Active FDA RIGHT PKR 09/30 [id number] 02/19/2026 CHINEDU 2377820 0 Allergies and Adverse Reactions Allergy Substance Reaction Severity Start Date Concern Status Co de Code System MELATONIN RASH (SNOMED-CT: null) Active 1521 RxNorm Plan of Treatment LAB DRAW 15MIN 06/09/2023 LAB DRAW 15MIN 06/04/2023 NM MPI STR/RST 06/17/2023 PFT COMPLETE W BROCHODILATER 05/27/2023 X-RAY 05/22/2023 MRI UPPER EXT JOINT W/O CONTRAST 2022 X-RAY 01/09/2022 PRE-OP COVID-19 TESTING 09/27/2021 PRE-OP TESTING 09/02/2021 MRI LOWER EXT W/O CONTRAST 04/10/2021 Encounters Encounter Diagnosis Start Date Code Code Sys tem Pain in right knee 12/11/2020 SNOMED-CT Personal Care Team Section Performer Name Performer Role Active Date Inactive Benitez rust
--- OUTSIDE RECORDS SUMMARY | 2024-04-19 08:08 | XMS_ITS | Encounter Summary ---
Author Organization [facility] Address [address] [place] [address] Care Team Providers Care Bore Miner Operator Name Role Phone Kimi Deleon MD Unavailable Hannah Batres NP Unavailable [phone] Millie Hilton MD Primary Care Provider [phone] Reason for Visit * Reason Onset Date Comments Appointment Related 04/01/2023 Encounter Details Date Type Department Care Team (Late st Contact Info) Description 04/01/2023 Telephone [facility] Cancer Center Hematology & Oncology - [facility] [address] [place] [address] Abebe Ralph MD [address] [facility] [address] [place] [address] Appointment Related Social History Tobacco Use Types Packs/Day Years Used Date Smoking Tobacco: Never Smokeless Tobacco: Never Alcohol Use Standard Drinks/Week Comments Yes 0 [...] Sexual Orientation Straight 09/10/2021 20 :11 EDT documented as of this encounter Functional Status * Because of a physical, mental, or emotional condition, does this person have difficulty doing errands alone such as visiting a doctor's office or shopping? Answer Date of Assessment Author No 01/07/2018 8:37 EDT documented as of this encounter Mental Status * Because of a physical, mental, or emotional condition, does this person have serious difficulty concentrating, remembering, or making decisions? Answer Entry Date Author No 01/07/2018 8:37 EDT documented in this encounter Miscellaneous Notes * Telephone Encounter - Tien Maier - 04/01/2023 1157 EST Connected with pt she is aware 04/08 now zoom * Telephone Encounter - Larisa Paul - 04/01/2023 1153 EST Patient calling to request the 04/08 appt be changed to a televideo documented in this encounter Plan of Treatment Upcoming Encounters Date Type Department Care Team (Late st Contact Info) Description 07/21/2024 11:00 EDT Office Visit [facility] Ophthalmology [address] [phone] Marcial Magaña MD [address] [place] [address], [address] [place] [phone] 07/25/2024 11:00 EDT Phlebotomy Only [facility] Hematology & Oncology [address] [phone] Blood Doctor, [facility] Hem Onc 07/25/2024 11:45 EDT Office Visit [facility] Hematology & Oncology - [address] [phone] Abebe Ralph MD [address] [facility], [address] [place] [address] 07/25/2024 12:30 EDT Appointment [facility] Hematology & Oncology - [address] [phone] 01/03/2025 16:20 EDT Appointment [facility] Breast Imaging Mammography - [address] [phone] documented as of this encounter Visit Diagnoses Not on filedocumented in this encounter Care Teams Bore Miner Operator Relationship Specialty Start Date End Date Millie Hilton MD [address] [place] [address] PCP - General 01/03/22 Kimi Deleon MD [address] [place] [phone] 05/16/20 Hannah Batres NP [address] [place] [address] 05/16/20 documented as of this encounter
--- OUTSIDE RECORDS SUMMARY | 2024-04-19 08:08 | XMS_ITS | Encounter Summary ---
Author Organization [facility] Address [address] [place] [address] Care Team Providers Care Early Childhood Director Name Role Phone Kimi Deleon MD Unavailable Hannah Batres NP Unavailable [phone] Millie Hilton MD Primary Care Provider [phone] Reason for Visit * Reason Comments Breast Cancer Encounter Details Date Type Department Care Team (Late st Contact Info) Description 04/08/2023 15:15 EST Telemedicine [facility] Cancer Center Hematology & Oncology - [address] [address] Abebe Ralph MD [address] [facility], [address] [place] [address] Malignant neoplasm of upper-outer quadrant of right breast in female, estrogen receptor positive (HCC-CMS) (Primary Dx) Social History Tobacco Use Types Packs/Day Years [...] 01/07/2018 8:37 EDT documented in this encounter Progress Notes * Abebe Ralph MD - 04/08/2023 1515 EST Subjective Jeffery Garvey is a 72 y.o. female, who returns in followup for treatment and management of her breast cancer, and other medical problems. Her past medical history, social history, and family history are unchanged from that noted in my prior notes, except as noted below. The concept of ???Telemedicine?? has been described to the patient. Patient has been informed of the anticipated benefits and possible risks. Patient understands the information provided regarding telemedicine, has had the opportunity to ask questions about this information, and all questions havebeen answered to patient???s satisfaction. Patient consents for the use of telemedicine in his/her medical care and authorizes the transmission of any relevant medical information to providers and their staff involved in patient???s medical or mental health care. Problem list: 1. 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 A. 1.8 cm cancer, 0/3 sentinel nodes, grade 2, ER/NY+, HER-2 negative (IHC = 0). LVI negative. Onco-DX = 16. B. S/B WL is/XRT, 12/09. C. Adjuvant tamoxifen, 12/09. 1. Severe ongoing vasomotor symptoms. 2. Celexa, ongoing. A. D/C'd. D. Adjuvant femara, 06/10. 1. Rx hold, 09/11. E. Adjuvant Arimidex, 10/11. 1. Switch to prior senior radiation protection technician of anastrozole (Zydus), 02/12. 2. Osteoporosis. A. Prior therapy with alendronate >> poor tolerance. B. 2-year course of Forteo, completed 09/08. C. Prolia, 12/09. 3. Macular degeneration, wet. A. Ongoing treatment >> a flu percept. 4. DJD, right knee. A. S/p partial knee replacement, 10/11. HPI: Jeffery Garvey returns in follow-up, continuing on adjuvant Arimidex, as above. Please see my prior note, when last seen she feels that her vasomotor symptoms are really worsened quite a bit in the prior 2 or 3 months or so. She additionally has had some chronic musculoskeletal symptoms. Interestingly she went to her pharmacist having noted that she was obtaining generic anastrozole from a different manufacture, she was able to get them to obtain generic anastrozole from the previous manufacture and she began this in January. She definitely feels that she has been feeling better since then. She feels that her hot flashes have been less severe and less intense. She thinks she is awakening generally 1-2/night however. Otherwise she has been doing well in the interval. We had discussedpreviously proceeding with a trial of Lexapro as well, which she opted not to do. ROS Except as noted above in the HPI, Jeffery Garveys full remaining 10 point review of systems, including constitutional, cardiac, pulmonary, GI, /LINOLEUM FLOOR LAYER, neurologic, musculoskeletal, HEENT, psychiatric, and endocrine, and all remaining, is otherwise fully unremarkable. Family History Problem Relation Age of Onset Arthritis Mother Cancer Mother Hypertension Mother Breast Cancer Mother Cancer Father Cancer Sister Macular Degeneration Sister Breast Cancer Sister Macular Degeneration Brother Macular Degeneration Maternal Uncle Glaucoma Neg Hx Blindness Neg Hx Retinal Detachment Neg Hx Current Outpatient Medications Medication Sig acetaminophen (TYLENOL) 325 mg tablet Take by mouth as needed for Pain. aflibercept (EYLEA) 2 mg/0.05 mL 0.05 mL by intravitreal route Once. anastrozole (ARIMIDEX) 1 mg tablet TAKE 1 TABLET BY MOUTH DAILY ANASTROZOLE ORAL Take by mouth. (Patient not taking: Reported on 08/04/2022) calcium carbonate/vitamin D3 (CALCIUM 500 + D ORAL) Take 1 caplet by mouth 2 times daily. cholecalciferol, Vitamin D3, 1,000 unit tablet Take 4,000 Units by mouth daily. (Patient not taking: Reported on 08/04/2022) citalopram (CELEXA) 10 mg tablet TAKE 1 TABLET BY MOUTH AT BEDTIME (Patient not taking: Reported on08/04/2022) denosumab 60 mg/mL syringe syringe Inject 1 mL into the skin every 6 months. (started 12/16/18 at [facility]) Fish Oil-[place]-3 Fatty Acids 360-1,200 mg capsule 1360mg, 2 caps by mouth daily GLYCINE ORAL Take 1,500 mg by mouth at bedtime. magnesium glycinate-mag oxide 120 mg magnesium capsule Take 240 mg by mouth 2 times daily. Multivitamins with Minerals tablet tablet Take 1 Tablet by mouth daily. (contains calcium 25 mg, vitamin D 1000 iu) vitamin B complex (B COMPLEX 1 ORAL) Take 1 caplet by mouth daily. There were no vitals filed for this visit. Wt Readings from Last 3 Encounters: 01/28/23 66.2 kg (146 lb) 08/04/22 70.6 kg (155 lb 11.2 oz) 02/17/22 69.9 kg (154 lb) Physical Exam Objective: Jeffery Garvey is well appearing and in no acute distress. Physical Exam Constitutional: alert and oriented to person, place, and time. Not in acute distress. Well-developed and well-nourished. HEENT: Head: Normocephalic and atraumatic. Eyes: Conjunctivae and EOM are intact. Pupils are equal, round, and reactive to light. No scleral icterus. Ears: External ears normal. Mouth/Throat: Oropharynx is clear and moist. No oropharyngeal exudate. Neck: Normal range of motion. Neck supple. No JVD present. No thyromegaly. Pulmonary/Chest: Vesicular breath sounds bilaterally. No respiratory distress. No wheezes, no rhoncae. Breasts: S/P WLE/XRT, minor post XRT E changes present, unchanged from prior exam, no new significant findings at present. Cardiovascular: Normal S1, S2. Normal rate, regular rhythm, normal heart sounds. No murmurs, rub, nor gallop. Abdominal: Flat. Soft. Bowel sounds are unremarkable. No palpable masses or distension no hepatasplenomegaly. There is no tenderness to palpation. No guarding. Genitourinary: no significant findings on exam. Musculoskeletal: Normal range of motion. No joint deformities present. No tenderness. Lymphadenopathy: no palpable supraclavicular, infraclavicular, or axillary, or other, adenopathy present. Neurological: alert and oriented to person, place, and time. CN II-XII are grossly intact. No focalneurologic deficits. Cerebellar function is intact. Skin: Intact, warm and dry. No rash, skin breakdown noted. Psychiatric: Judgment and thought content normal. Extr's: Without significant cyanosis, clubbing, or edema. Lab Results Component Value Date WBC 5.88 08/04/2022 HGB 12.8 08/04/2022 HCT 38.1 08/04/2022 MCV 92 08/04/2022 PLT 238 08/04/2022 NEUTROABS 2.75 08/04/2022 CALCIUM 9.7 08/04/2022 CO2 20 (L) 08/04/2022 AST 31 08/04/2022 ALT 20 08/04/2022 TBIL <0.5 08/04/2022 CREATININE 0.75 08/04/2022 CALCCA 9.3 09/03/2020 ANIONGAP 9 08/04/2022 TP 7.0 08/04/2022 K 4.7 08/04/2022 ALKPHOS 42 08/04/2022 LABALBU 4.4 08/04/2022 BUN 18 08/04/2022 CALCGFR 84 08/04/2022 CL 109 08/04/2022 SERGLU 105 (H) 08/04/2022 NA 138 08/04/2022 Imaging Assessment & Plan Jeffery Garvey returns in follow-up, as above. She overall is doing well in regards to her breast cancer, with no signs or symptoms suggestive of recurrent disease. She has had no breast complaints. She does continue to be quite subjectively bothered by her hot flashes, as noted above. Interestingly when she switched her anastrozole preparation however to the senior radiation protection technician noted above she definitely feels that the hot flashes and vasomotor symptoms are somewhat better, she is still awakening 1-2/night but finds that her less severe less intense and of less duration. Jeffery of his continued to do a lot of research, interestingly she wanted bring to my attention a long article that she found in the ER times discussing and reviewing research suggesting that hot flashes and menopausal vasomotor symptoms specifically can lead to findings on brain MRI in 2 dementia, that she was quite concerned about. She additionally is quite hesitant about taking medications in general. We did review however in some detail today the potential use of Neurontin which I recommended is an excellent option for treating her ongoing vasomotor symptoms. She would like to do some of her own research on this and is willing to consider proceeding with this. Will discuss this further at the time of her nextfollow-up oncology appointment at which time she will be due for ongoing treatment with Prolia. Shewill be at her 5-year jj of adjuvant endocrine therapy this fall, she continues to hope to be finished with treatment at that time, please see my prior note, we deferred a discussion today on the risks/benefits of extended adjuvant endocrine therapy which we will discuss once again in the future. TELEMEDICINE VIDEO VISIT Today's visit was provided through telemedicine video conferencing: I have reviewed the appropriateness of using video technology with the patient with regards to today's visit. The location of the patient : Home Patient location state: Visit Location State: [place] The location of the provider: Office Provider location state: Visit Location State: [place] The following people and their roles were present for today's visit: Appointment Provider: Abebe Ralph MD Peter A Kaufman, MD I spent a total of 60 with minutes on the date of this encounter meeting with and seeing this patient, reviewing medical records, radiology reports and studies, laboratory results, updating the chartand records, documenting today's findings and recommendations, writing orders as necessary, and reviewing this all with the patient and coordinating her care and followup as necessary. Abebe Ralph MD documented in this encounter Plan of Treatment Upcoming Encounters Date Type Department Care Team (Late st Contact Info) Description 07/21/2024 11:00 EDT Office Visit [facility] Ophthalmology - [address] [phone] Marcial Magaña MD 111 [facility], [facility] [address] [place] [phone] 07/25/2024 11:00 EDT Phlebotomy Only [facility] Hematology & Oncology [address] [phone] Blood Doctor, [facility] Hem Onc 07/25/2024 11:45 EDT Office Visit [facility] Hematology & Oncology [address] [phone] Abebe Ralph MD [address] [facility], [address] [place] [phone] 07/25/2024 12:30 EDT Appointment [facility] Hematology & Oncology [address] [phone] 01/03/2025 16:20 EDT Appointment [facility] Breast Imaging Mammography - [address] [phone] documented as of this encounter Visit Diagnoses Diagnosis Malignant neoplasm of upper-outer quadrant of right breast in female, estrogen receptor positive ([facility]-CMS)- Primary Encounter for screening mammogram for malignant neoplasm of breast Other screening mammogram documented in this encounter Care Teams Early Childhood Director Relationship Specialty Start Date End Date Millie Hilton MD [address] [place] [address] PCP - General 01/03/22 Kimi Deleon MD [address] [place] [phone] 05/16/20 Hannah Batres NP [address] [place] [address] 05/16/20 documented as of this encounter
--- OUTSIDE RECORDS SUMMARY | 2024-04-19 08:08 | XMS_ITS | Encounter Summary ---
Author Organization [facility] Address [address] [place] [address] Care Team Providers Care Embedded Systems Software Developer Name Role Phone Kimi Deleon MD Unavailable [phone] Hannah Batres NP Unavailable [phone] Millie Hilton MD Primary Care Provider [phone] Encounter Details Date Type Department Care Team (Latest Contact Info) Description 01/25/2024 9:45 EST Phlebotomy Only [facility] Hematology & Oncology - [address] [place] [address] [place] [address] Blood Doctor, [facility] Hem Onc Malignant neoplasm of upper-outer quadrant of right breast in female, estrogen receptor positive (HCC-CMS); Estrogen receptor positive status (ER+); Other termination clerk (current) drug therapy Social History Tobacco Use Types Packs/Day Years [...] documented in this encounter Progress Notes * Brandon Wilburn MA - 01/25/2024 0945 EST Venipuncture performed for Loree Per orders of Loree Number of attempts 1 left ac PC I was supervised by Loree who was present and immediately available in the office suite. BRANDON WILBURN MA 01/25/2024 9:47 documented in this encounter Plan of Treatment Upcoming Encounters Date Type Department Care Team (Late st Contact Info) Description 07/21/2024 11:00 EDT Office Visit [facility] Ophthalmology [address] [id number] Marcial Magaña MD [address] [place] [address], [address] [place] [address] 07/25/2024 11:00 EDT Phlebotomy Only [facility] Hematology & Oncology [address] [phone] Blood Doctor, [facility] Hem Onc 07/25/2024 11:45 EDT Office Visit [facility] Hematology & Oncology [address] [id number] Abebe Ralph MD [address] [facility], [facility], Level [address] [place] [phone] 07/25/2024 12:30 EDT Appointment [facility] Hematology & Oncology - [address] [phone] 01/03/2025 16:20 EDT Appointment [facility] Breast Imaging Mammography - [address] [phone] documented as of this encounter Procedures Procedure Name Priority Date/Time Associated Diagnosis Comments COMPREHENSIVE METABOLIC PANEL (ONCOLOGY USE ONLY-INC MG) STAT 01/25/2024 9:46 EST Malignant neoplasm of upper-outer quadrant of right breast in female, estrogen receptor positive (HCC-CMS) Estrogen receptor positive status (ER+) COMPLETE BLOOD COUNT AND DIFFERENTIAL STAT 01/25/2024 9:46 EST Malignant neoplasm of upper-outer quadrant of right breast in female, estrogen receptor positive (HCC-CMS) Estrogen receptor positive status (ER+) LIPID PROFILE (INCLUDES CHOLESTEROL, TRIGLYCERIDES, HDL, LDL) STAT 01/25/2024 9:46 EST Malignant neoplasm of upper-outer quadrant of right breast in female, estrogen receptor positive (HCC-CMS) Estrogen receptor positive status (ER+) Other termination clerk (current) drug therapy documented in this encounter Results * (ABNORMAL) LIPID PROFILE (INCLUDES CHOLESTEROL, TRIGLYCERIDES, HDL, LDL) (01/25/2024 9:46 EST) Cholesterol 228(H) <200 mg/dL 01/25/2024 10:10 EST [facility] Comment:Note that therapeuti c goals will differ between patients based on cardiac risk factors and current medical therapy. HDL 53 >=50 mg/dl 01/25/2024 10:10 EST [facility] Comment:Note that therapeuti c goals will differ between patients based on cardiac risk factors and current medical therapy. LDL, Calculated 157 <160 mg/dL 10:10 [facility] Comment:Note that therapeuti c goals will differ between patients based on cardiac risk factors and current medical therapy. Triglyceride 90 <=150 mg/dL 01/25/2024 10:10 [facility] Comment:Note that therapeuti c goals will differ between patients based on cardiac risk factors and current medical therapy. Chol/HDL Ratio 4.3 See Note 01/25/2024 10:10 [facility] Comment:No reference range h as been established for CHOL/HDL ratio. Non HDL Cholesterol 175(H) <160 mg/dL 01/25/2024 10:10 [facility] Comment:Note that therapeuti c goals will differ between patients based on cardiac risk factors and current medical therapy. Blood VENOUS BLOOD / Unknown Venipuncture / Unknown 01/25/2024 9:46 EST 01/25/2024 9:52 EST Abebe Ralph MD CHEMISTRY & BLOOD GAS ORDERAB LES Final Result [facility] [address] [place] [address] * COMPREHENSIVE METABOLIC PANEL (ONCOLOGY USE ONLY-INC MG) (01/25/2024 9:46 EST) Sodium 139 136 - 145 mmol/L 01/25/2024 10:10 [facility] Potassium 4.5 3.5 - 5.0 mmol/L 01/25/2024 10:10 [facility] Chloride 107 96 - 110 mmol/L 01/25/2024 10:10 [facility] CO2 Total 26 22 - 32 mmol/L 01/25/2024 10:10 [facility] Glucose 99 70 - 99 mg/dl 01/25/2024 10:10 [facility] BUN 19 10 - 26 mg/dL 01/25/2024 10:10 [facility] Creatinine 0.71 0.52 - 1.04 mg/dL 01/25/2024 10:10 [facility] eGFR 89 >60 mL/min/1.7 3m2 01/25/2024 10:10 [facility] Total Protein 7.4 6.3 - 8.2 g/dL 01/25/2024 10:10 [facility] Albumin 4.6 3.4 - 4.9 g/dL 01/25/2024 10:10 [facility] Alkaline Phosphatase 45 38 - 126 U/L 01/25/2024 10:10 [facility] AST 25 15 - 46 U/L 01/25/2024 10:10 [facility] ALT 18 <35 U/L 01/25/2024 10:10 [facility] Bilirubin, Total 0.5 <1.4 mg/dL 01/25/20 10:10 [facility] Calcium 9.5 8.5 - 10.5 mg/dL 01/25/2024 10:10 [facility] Magnesium 2.2 1.7 - 2.8 mg/dL 01/25/2024 10:10 [facility] Albumin/Globulin Ratio 1.6 1.0 - 2.5 01/25/2024 10:10 [facility] Anion Gap 6 5 - 14 mmol/L 01/25/2024 10:10 [facility] Blood VENOUS BLOOD / Unknown Venipuncture / Unknown 01/25/2024 9:46 EST 01/25/2024 9:52 EST us Abebe Ralph MD CHEMISTRY & BLOOD GAS ORDERAB LES Final Result [facility] [address] [place] [address] * COMPLETE BLOOD COUNT AND DIFFERENTIAL (01/25/2024 9:46 EST) WBC 5.05 4.00 - 12.40 K/cmm 01/25/2024 10:07 [facility] RBC 4.24 3.86 - 5.04 M/cmm 01/25/2024 10:07 [facility] Hemoglobin 13.5 11.6 - 15.2 g/dL 01/25/2024 10:07 [facility] HCT 39.1 34.9 - 44.4 % 01/25/2024 10:07 [facility] MCV 92 81 - 98 fL 01/25/2024 10:07 [facility] MCH 31.8 26.7 - 33.3 pg 01/25/2024 10:07 [facility] MCHC 34.5 32.1 - 35.9 g/dL 01/25/2024 10:07 [facility] RDW-CV 13.5 <14.7 % 01/25/2024 10:07 [facility] RDW-SD 45.8 <50.4 fl 01/25/2024 10:07 [facility] PLT 232 141 - 377 K/cmm 01/25/2024 10:07 [facility] MPV 10.8 9.5 - 12.7 fL 01/25/2024 10:07 [facility] % Neutrophils 45.3 Not Indicated % 01/25/2024 10:07 [facility] % Lymphocytes 43.0 Not Indicated % 01/25/2024 10:07 [facility] % Monocytes 9.1 Not Indicated % 01/25/2024 10:07 [facility] % Eosinophils 2.0 Not Indicated % 01/25/2024 10:07 [facility] % Basophils 0.4 Not Indicated % 01/25/2024 10:07 [facility] % Immature Grans 0.2 Not Indicated % 01/25/2024 10:07 [facility] Absolute Neutrophils 2.29 2.20 - 8.85 K/cmm 01/25/2024 10:07 [facility] Absolute Lymphocytes 2.17 1.09 - 3.30 K/cmm 01/25/2024 10:07 [facility] Absolute Monocytes 0.46 0.10 - 0.80 K/cmm 01/25/2024 10:07 [facility] Absolute Eosinophils 0.10 0.03 - 0.61 K/cmm 01/25/2024 10:07 EST [facility] ABS Basophils 0.02 0.01 - 0.11 K/cmm 01/25/2024 10:07 EST [facility] Absolute Immature Grans 0.01 0.00 - 0.06 K/cmm 01/25/2024 10:07 EST [facility] Type of Differential: Auto 01/25/2024 10:07 EST [facility] Blood VENOUS BLOOD / Unknown Venipuncture / Unknown 01/25/2024 9:46 EST 01/25/2024 9:52 EST us Abebe Ralph MD PACKAGES & DNA PROBE ORDERABL ES Final Result [facility] [address] [place] [address] documented in this encounter Visit Diagnoses Diagnosis Malignant neoplasm of upper-outer quadrant of right breast in female, estrogen receptor positive (HCC-CMS) Estrogen receptor positive status (ER+) Estrogen receptor positive status [ER+] Other senior care (current) drug therapy Encounter for screening mammogram for malignant neoplasm of breast Other screening mammogram documented in this encounter Care Teams Embedded Systems Software Developer Relationship Specialty Start Date End Date Millie Hilton MD [address] [place] [address] PCP - General 01/03/22 Kimi Deleon MD [address] [place] [address] 05/16/20 Hannah Batres NP [address] [place] [address] 05/16/20 documented as of this encounter
--- OUTSIDE RECORDS SUMMARY | 2024-04-19 08:08 | XMS_ITS | Encounter Summary ---
Author Organization [facility] Address [address] [place] [address] Care Team Providers Care Career Based Intervention Coordinator Name Role Phone Kimi Deleon MD Unavailable [phone] Hannah Batres NP Unavailable [phone] Millie Hilton MD Primary Care Provider [phone] Reason for Visit * Episode Based Medications (Routine) - Authorized Specialty Diagnoses / Procedures [facility] To Contact Diagnoses Estrogen receptor positive status (ER+) Other osteoporosis without current pathological fracture Abebe Ralph MD [address] [place] [address] [address] [place] [address] Phone: tel: fax: [facility] Hematology Oncology [address] [address] Phone: tel: fax: Referral ID Status Reason Start Date Expiration Date V isits Requested Visits Authorized [id number] Authorized 09/09/2021 01/24/2026 5 10 Encounter Details Date Type Department Care Team (Latest Contact Info) Description 07/27/2023 8:58 EDT - 07/27/2023 23:59 EDT Hospital Encounter [facility] Hematology Oncology [address] [address] Estrogen receptor positive status (ER+) (Primary Dx); Other osteoporosis without current pathological fracture Discharge Disposition: Home or Self Care Social History Tobacco Use Types Packs/Day Years [...] 01/07/2018 8:37 EDT documented in this encounter Medications at Time of Discharge acetaminophen (TYLENOL) 325 mg tablet Take by mouth as needed for Pain. aflibercept (EYLEA) 2 mg/0.05 mL 0.05 mL by intravitreal route Once. calcium carbonate/vitami n D3 (CALCIUM 500 + D ORAL) Take 1 caplet by mouth 2 times daily. denosumab 60 mg/mL syringe syringe Inject 1 mL into the skin every 6 months. (started 12/16/18 at [facility]) Fish Oil-Pinson-3 Fatty Acids 360-1,200 mg capsule 1360mg, 2 [...] ORAL) Take 1 caplet by mouth daily. anastrozole (ARIMIDEX) 1 mg tabletIndication s:Malignant neoplasm of upper-outer quadrant of right breast in female, estrogen receptor positive (HCC-CMS) TAKE 1 TABLET BY MOUTH DAILY 90 Tablet 3 06/30/2023 5 aspirin chewable 81 mg tablet Take 1 Tablet by mouth daily. 4 atorvastatin (LIPITOR) 20 mg tablet Take 1 Tablet by mouth daily. 06/23/2023 4 cholecalciferol, Vitamin D3, 1,000 unit tablet Take 4,000 Units by mouth daily. 4 citalopram (CELEXA) 10 mg tabletIndication s:Malignant neoplasm of upper-outer quadrant of right breast in female, estrogen receptor positive (HCC-CMS) TAKE 1 TABLET BY MOUTH AT BEDTIME 30 Tablet 2 02/28/2022 4 documented as of this encounter Discharge Disposition Disposition Code Departure Means Destination Home or Self Care documented in this encounter Progress Notes * Sally Zavala RN - 07/27/2023 1100 EDT Jeffery had blood work done prior to receiving Denosumab. She meets criteria for treatment, takes calcium and vitamin D daily, does not have any invasive dental work planned and did want clarificationon the purpose of this medication: preventive osteoporosis and after breast cancer treatment. She received Prolia SC into her left arm and she tolerated it well. She understands to notify team with any changes or concerns prior to next appointment. I was supervised by Dr. Garg who was present at the clinic and available when needed. Sally Zavala RN 07/27/23 documented in this encounter Miscellaneous Notes * Addendum Note - Tripp Lopez - 07/27/2023 1100 EDTEncounter addended by: Tripp Lopez on: 07/28/2023 5:20 Actions taken: Charge Capture section accepted documented in this encounter Plan of Treatment Upcoming Encounters Date Type Department Care Team (Late st Contact Info) Description 07/21/2024 11:00 EDT Office Visit [facility] Ophthalmology - [address] [phone] Marcial Magaña MD [address] [place] [address], [address] [place] [phone] 07/25/2024 11:00 EDT Phlebotomy Only [facility] Hematology & Oncology [address] [phone] Blood Doctor, [facility] Hem Onc 07/25/2024 11:45 EDT Office Visit [facility] Hematology & Oncology - [address] [phone] Abebe Ralph MD [address] [place] [address], [address] [place] [phone] 07/25/2024 12:30 EDT Appointment [facility] Hematology & Oncology [address] [phone] 01/03/2025 16:20 EDT Appointment [facility] Breast Imaging Mammography - [address] [phone] documented as of this encounter Results * VITAMIN D (25,OH) (07/27/2023 9:11 EDT) 25OH Vitamin D Tot 46 30 - 100 ng/mL 07/27/2023 13:23 EDT [facility] Comment: Vitamin D 25,OH Interpretive Ranges: Deficiency: ??<10.0 ng/mL Insufficiency: ??10.0 - 30.0 ng/mL Sufficiency: ??30.0 - 100.0 ng/mL Toxicity: ??>100.0 ng/mL Blood VENOUS BLOOD / Unknown Venipuncture / Unknown 07/27/2023 9:11 EDT 07/27/2023 9:16 EDT us Abebe Ralph MD CHEMISTRY & BLOOD GAS ORDERAB LES Final Result [facility] [address] [place] [address] documented in this encounter Visit Diagnoses Diagnosis Estrogen receptor positive status (ER+)- Primary Estrogen receptor positive status [ER+] Other osteoporosis without current pathological fracture Encounter for screening mammogram for malignant neoplasm of breast Other screening mammogram documented in this encounter Administered Medications Inactive Administered Medications - up to 3 most recent administrations Medication Order MAR Action Action Date Dose Rate Site denosumab (PROLIA) syringe 60 mg 60 mg, subcutaneous, NOW X1, 1 dose, On 07/27/23 at 1115, RoutineIndications:Estrogen receptor positive status (ER+),Other osteoporosis without current pathological fracture Given 07/27/2023 11:07 EDT 60 mg Left Arm documented in this encounter Orders Medications Ordered That Trevor ht Not Have Been Administered Count Last Ordered Date First Ordered Date denosumab (PROLIA) syringe 60 mg 1 07/27/19 24 Appointment Requests Count Last Ordered Date Fi rst Ordered Date ONCBCN INJECTION APPOINTMENT REQUEST 1 08/2023 documented in this encounter Care Teams Career Based Intervention Coordinator Relationship Specialty Start Date End Date Millie Hilton MD [address] [place] [address] PCP - General 01/03/22 Kimi Deleon MD [address] [place] [phone] 05/16/20 Hannah Batres NP [address] [place] [address] 05/16/20 documented as of this encounter
--- OUTSIDE RECORDS SUMMARY | 2024-04-19 08:08 | XMS_ITS | Encounter Summary ---
Author Organization [facility] Address [address] [place] [address] Care Team Providers Care Children'S Choir Director Name Role Phone Kimi Deleon MD Unavailable [phone] Hannah Batres NP Unavailable [phone] Millie Hilton MD Primary Care Provider [phone] Reason for Referral * Radiology Services (Routine/Next Available) - Authorization Not Required Specialty Diagnoses / Procedures Referred By Raghu worrell Referred To Contact Diagnoses Encounter for screening mammogram for malignant neoplasm of breast Procedures MA BREAST SCREENING JOE BILATERAL Millie Hilton MD [address] [place] [address] Phone: tel: fax: [facility] Referral ID Status Reason Start Date Expiration Date Visits Requested Visits Authorized [id number] Authorization Not Required 06/19/2023 1 1 Reason for Visit * Radiology Services (Routine/Next Available) - Authorization Not Required Specialty Diagnoses / Procedures Referred By Raghu worrell Referred To Contact Diagnoses Encounter for screening mammogram for malignant neoplasm of breast Procedures MA BREAST SCREENING JOE BILATERAL Millie Hilton MD [address] [place] [address] Phone: tel: fax: [facility] Referral ID Status Reason Start Date Expiration Date Visits Requested Visits Authorized [id number] Authorization Not Required 06/19/2023 1 1 Encounter Details Date Type Department Care Team (Latest Contact Info) Description 12/29/2023 14:40 EDT - 12/29/2023 23:59 EDT Hospital Encounter [facility] Breast Imaging Mammography - [address] [address] Encounter for screening mammogram for malignant neoplasm of breast Discharge Disposition: Home or Self Care Social [...] 1 caplet by mouth 2 times daily. COQ10, UBIQUINOL, ORAL Take by mouth daily. denosumab 60 mg/mL syringe syringe Inject 1 mL into the skin every 6 months. (started 12/16/[address] [facility]) Fish Oil-Waldron-3 Fatty Acids 360-1,200 mg capsule 1360mg, 2 [...] or Self Care documented in this encounter Plan of Treatment Upcoming Encounters Date Type Department Care Team (Late st Contact Info) Description 07/21/2024 11:00 EDT Office Visit [facility] Ophthalmology - [address] [phone] Marcial Magaña MD [address] [facility], [address] [place] [address] 07/25/2024 11:00 EDT Phlebotomy Only [facility] Hematology & Oncology - [address] [phone] Blood Doctor, [facility] Hem Onc 07/25/2024 11:45 EDT Office Visit [facility] Hematology & Oncology [address] [phone] Abebe Ralph MD [address] [place] [address] [address] [place] [phone] 07/25/2024 12:30 EDT Appointment [facility] Hematology & Oncology [address] [phone] 01/03/2025 16:20 EDT Appointment [facility] Breast Imaging Mammography - [address] [phone] documented as of this encounter Procedures Procedure Name Priority Date/Time Associated Diagnosis Comments MA BREAST SCREENING JOE BILATERAL Routine 12/29/2023 14:59 EDT Encounter for screening mammogram for malignant neoplasm of breast documented in this encounter Results * MA BREAST SCREENING JOE BILATERAL (12/29/2023 14:59 EDT) Anatomical Region Laterality Modality Breast Bilateral Mammography 12/29/2023 20:1 5 EDT Impressions 12/29/2023 20:15 EDT Benign, no evidence of malignancy. RECOMMENDATION: Routine screening mammography is recommended. OVERALL ASSESSMENT: BI-RADS 2: Benign These results will be communicated to your patient via a lay letter from Radiology. If any additional imaging is needed we will contact your patient directly. [facility] [address] [phone] [id number] Narrative 12/29/2023 20:15 EDT MA BREAST SCREENING JOE BILATERAL ??12/29/2023 2:44 PM History: routine Comparison: ??Comparison has been made to previous images . ? Technique: Routine 3D tomosynthesis with synthesized 2D views with CAD Breast Composition: There are scattered areas of fibroglandular density. Bilateral Breast Findings: ??No significant masses, calcifications or other abnormalities are seen. Changes related to right breast conservation are noted Resulting Agency Comment [id number] Procedure Note Tsering Erickson MD - 12/29/2023 MA BREAST SCREENING JOE BILATERAL 12/29/2023 2:44 PM History: routine Comparison: Comparison has been made to previous images . Technique: Routine 3D tomosynthesis with synthesized 2D views with CAD Breast Composition: There are scattered areas of fibroglandular density. Bilateral Breast Findings: No significant masses, calcifications or otherabnormalities are seen. Changes related to right breast conservation arenoted IMPRESSION Benign, no evidence of malignancy. RECOMMENDATION: Routine screening mammography is recommended. OVERALL ASSESSMENT: BI-RADS 2: Benign These results will be communicated to your patient via a lay letter fromRadiology. If any additional imaging is needed we will contact yourpatient directly. [facility].- [address] [phone] [id number] Millie Hilton MD IMG MAMMOGRAPHY ORDERABLES Fi nal Result documented in this encounter Visit Diagnoses Diagnosis Encounter for screening mammogram for malignant neoplasm of breast Other screening mammogram Encounter for screening mammogram for malignant neoplasm of breast Other screening mammogram documented in this encounter Care Teams Children'S Choir Director Relationship Specialty Start Date End Date Millie Hilton MD [address] [place] [address] PCP - General 01/03/22 Kmii Deleon MD [address] [place] [phone] 05/16/20 Hannah Batres NP [address] [place] [address] 05/16/20 documented as of this encounter
--- OUTSIDE RECORDS SUMMARY | 2024-04-19 08:08 | XMS_ITS | Encounter Summary ---
Author Organization [facility] Address [address] [place] [address] Care Team Providers Care Independent Consultant Name Role Phone Kimi Deleon MD Unavailable Hannah Batres NP Unavailable [phone] Millie Hilton MD Primary Care Provider [phone] Reason for Visit * Reason Comments Follow-up Injections Encounter Details Date Type Department Care Team (Late st Contact Info) Description 01/25/2024 10:15 EST Office Visit [facility] Cancer [facility] Hematology & Oncology - [address] [address] Abebe Ralph MD [address] [facility], Level 2 [place] [address] Malignant neoplasm of upper-outer quadrant [...] :11 EDT documented as of this encounter Last Filed Vital Signs Vital Sign Reading Time Taken Comments Blood Pressure 179/82 01/25/2024 0949 EST Pulse 45 01/25/2024 0949 EST Temperature 36.6 ??C (97.8 ??F) 01/25/2024 0949 EST Respiratory Rate 16 01/25/2024 0949 EST Oxygen Saturation 100% 01/25/2024 0949 EST Inhaled Oxygen Concentration - - Weight 66.2 kg (146 lb) 01/25/2024 0949 EST Height 163.4 cm (5' 4.33) 01/25/2024 0949 EST Body Mass Index 24.8 01/25/2024 0949 EST documented in this encounter Functional Status * Because of [...] Progress Notes * Abebe Ralph MD - 01/25/2024 1015 EST Subjective Jeffery Garvey is a 73 y.o. female, who returns in followup for treatment and management of her breast cancer, and other medical problems. Her past medical history, social history, and family history are unchanged from that noted in my prior notes, except as noted below. Problem list: 1. 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 A. 1.8 cm cancer, 0/3 sentinel nodes, grade 2, ER/CT+++ (greater than 90%, strong), HER-2 negative (IHC = 0). LVI negative. Onco-DX = 16. B. S/B WLE/XRT, 12/09. C. Adjuvant tamoxifen, 12/09. 1. Severe ongoing vasomotor symptoms. 2. Celexa, ongoing. A. D/C'd. D. Adjuvant femara, 06/10. 1. Rx hold, 09/11. E. Adjuvant Arimidex, 10/11. 1. Switch to prior administrative assistant data entry of anastrozole (Zydus), 02/12. 2. Rx hold, 02/13. 2. Osteoporosis. A. Prior therapy with alendronate >> poor tolerance. B. 2-year course of Forteo, completed 09/08. C. Prolia, 12/09. 3. Macular degeneration, wet. A. Ongoing treatment >> a flu percept. 4. DJD, right knee. A. S/p partial knee replacement, 10/11. 5. Hypercholesterolemia, . A. Lipitor, 05/16. 6. COVID, 07/14. A. Episode 2, 12/14. HPI: Jeffery Garvey returns in follow-up, continuing on adjuvant Arimidex, as above. She continues to have a number likely side effects that while overall reasonably modest, have been somewhat bothersome and she remains concerned about. In regards to hot flashes she feels she is now awakening 2-4X's/night. At times she has difficulty falling back asleep as well from these. This interestingly is moderately worse than what she described when I saw her about 6 months ago. In retrospect however Jeffery does not feel her vasomotor symptoms have changed for many years and they have overall been generally at this level. Of note she did have fairly significant ongoing baseline postmenopausal vasomoto r symptoms prior to initiation of her adjuvant endocrine therapy, which her emphasized today, but she does feel that they did get worse with initiation of adjuvant treatment. She continues tonote some achiness/stiffness, primarily in her legs. Of note, this past spring or summer she was begun on a statin by her PCP for treatment of hypercholesterolemia. She relates she did have significant worsening musculoskeletal symptoms with this was only on it for about 4 to 6 weeks or so which point she discontinued this. ROS Except as noted above in the HPI, Jeffery Garveys full remaining 10 point review of systems, including constitutional, cardiac, pulmonary, GI, /[employer], neurologic, musculoskeletal, HEENT, psychiatric, and endocrine, and [...] tablet TAKE 1 TABLET BY MOUTH DAILY calcium carbonate/vitamin D3 (CALCIUM 500 + D ORAL) Take 1 caplet by mouth 2 times daily. COQ10, UBIQUINOL, ORAL Take by mouth daily. denosumab 60 mg/mL syringe syringe Inject 1 mL into the skin every 6 months. (started 12/16/18 at [facility]) Fish Oil-[place]-3 Fatty Acids 360-1,200 mg capsule 1360mg, 2 [...] ORAL) Take 1 caplet by mouth daily. Vitals: 01/25/24 0949 BP: (!) 179/82 Pulse: (!) 45 Resp: 16 Temp: 36.6 ??C (97.8 ??F) TempSrc: Skin SpO2: 100% Weight: 66.2 kg (146 lb) Height: 163.4 cm (64.33) Wt Readings from Last 3 Encounters: 01/25/24 66.2 kg (146 lb) 12/21/23 67 kg (147 lb 11.2 oz) 07/30/23 67.4 kg (148 lb 9.6 oz) Physical Exam Objective: Jeffery Garvey is well [...] edema. Lab Results Component Value Date WBC 5.90 07/27/2023 HGB 12.8 07/27/2023 HCT 37.7 07/27/2023 MCV 92 07/27/2023 PLT 227 07/27/2023 NEUTROABS 3.03 07/27/2023 CALCIUM 9.5 07/27/2023 CO2 24 07/27/2023 AST 23 07/27/2023 ALT 19 07/27/2023 TBIL 0.6 07/27/2023 CREATININE 0.71 07/27/2023 CALCCA 9.3 09/03/2020 ANIONGAP 9 07/27/2023 TP 6.7 07/27/2023 K 4.6 07/27/2023 ALKPHOS 38 07/27/2023 LABALBU 4.2 07/27/2023 BUN 20 07/27/2023 CALCGFR 89 07/27/2023 CL 106 07/27/2023 SERGLU 85 07/27/2023 NA 139 07/27/2023 Imaging Assessment & Plan Jeffery Garvey returns in follow-up, as above. She does continue to have moderate ongoing symptoms quite likely attributable to her adjuvant endocrine therapy, as noted above. She returns in follow-up to discuss in detail today whether to continue or not with adjuvant endocrine therapy. Pleasesee my prior notes last spring. Her BCI assay has returned with a H/I ratio with no predicted benefit from extended adjuvant endocrine therapy, and a risk of late distant recurrence of 1.6%. We had previously discussed in some detail the data underlying the BCI index. Additionally we have calculated her late risk of recurrence based on more recent data utilizing Oncotype DX late risk of recurrence score, this calculates to a ~3-6% long-term risk of recurrence, with no further adjuvant therapy. We reviewed both of these assays in some detail today, her accompanied her to her appointment as well. I further asked explained to the data underlying these assays and their limitations. Jeffery certainly has been struggling for a long time with medications in general, and has very much questioned whether she wishes to continue with extended adjuvant treatment. I explained in some detail once again today there is no right or wrong answer, however I would estimate given her conventional path pathology, as well as both of the above genomic assays, that she does have a modest, but some risk of long-term recurrence. There is good data demonstrating a superiority of 10 versus 5 years of adjuvant endocrine therapy in her setting. We further discussed in some detail that while the risk issmall, if she falls into the group of patients and her metastatic disease were to develop, what this means and the consequences of this. Major side effect bothering injury is that of vasomotor symptoms and night time disrupting hot flashes. We reviewed once again which we have spoken about a coupletimes in the past, the potential of a trial of Neurontin, and the risk/benefits of this. I think This was very helpful for you to review again. What we decide is Jeffery will proceed with a trial of tr eatment hold, and she will see how she feels. As her pointed out she has had longstanding fairly significant hot flashes since onset of menopause, so we will see how much better her vasomotorsymptoms are with discontinuation of her endocrine therapy. Will reassess in approximately 2-3 months or so and consider at that time whether to remain off endocrine therapy versus continuing with some length of extended treatment. I spent a total of 75 with minutes on the date of this encounter meeting with and seeing this patient, reviewing medical records, radiology reports and studies, laboratory results, updating the chart and records, documenting today's findings and recommendations, writing orders as necessary, and reviewing this all with the patient and coordinating her care and followup as necessary. Abebe Ralph MD documented in this encounter Plan of Treatment Upcoming Encounters Date Type Department Care Team (Late st Contact Info) Description 07/21/2024 11:00 EDT Office Visit [facility] Ophthalmology - [address] [id number] Marcial Magaña MD [address] [place] [address] 5 [place] [phone] 07/25/2024 11:00 EDT Phlebotomy Only [facility] Hematology & Oncology [address] [phone] Blood Doctor, [facility] Hem Onc 07/25/2024 11:45 EDT Office Visit [facility] Hematology & Oncology [address] [phone] Abebe Ralph MD [address] [place] [address], [facility] [address] [place] [phone] 07/25/2024 12:30 EDT Appointment [facility] Hematology & Oncology [address] [phone] 01/03/2025 16:20 EDT Appointment [facility] Breast Imaging Mammography - [address] [phone] documented as of this encounter Visit Diagnoses Diagnosis Malignant neoplasm of upper-outer quadrant of right breast in female, estrogen receptor positive ([facility])- Primary Encounter for screening mammogram for malignant neoplasm of breast Other screening mammogram documented in this encounter Care Teams Independent Consultant Relationship Specialty Start Date End Date Millie Hilton MD [address] [place] [address] PCP - General 01/03/22 Kimi Deleon MD [address] [place] [phone] 05/16/20 Hannah Batres NP [address] [place] [address] 05/16/20 documented as of this encounter
--- OUTSIDE RECORDS SUMMARY | 2024-04-19 08:08 | XMS_ITS | Encounter Summary ---
Author Organization [facility] Address [address] [place] [address] Care Team Providers Care Machine Deburrer Name Role Phone Kimi Deleon MD Unavailable Hannah Batres NP Unavailable [phone] Millie Hilton MD Primary Care Provider [phone] Reason for Visit * Reason Comments Follow-up Encounter Details Date Type Department Care Team (Late st Contact Info) Description 03/30/2024 14:20 EST Office Visit [facility] Cancer Center Hematology & Oncology - [address] [address] Xena Nieves PATatianaC [address] [place] [address], Level [address] [place] [address] Malignant neoplasm of upper-outer quadrant of right breast in female, estrogen receptor positive (HCC-CMS) (Primary Dx); Other osteoporosis without current pathological fracture Social History Tobacco Use Types Packs/Day Years [...] kg (149 lb) 03/30/2024 1414 EST Height - - Body Mass Index 25.31 01/25/2024 0949 EST documented in this encounter [...] documented in this encounter Progress Notes * Xena Nieves PA-C - 03/30/2024 1420 EST Jeffery Garvey is a 73 y.o.yo female presenting in clinic today for short interval visit, currently holding her AI, in the setting of her history of breast cancer. Chief Complaint Patient presents with Follow-up Problem list: 1. 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 A. 1.8 cm cancer, 0/3 sentinel nodes, grade 2, ER/WI+, HER-2 negative (IHC = 0). LVI negative. Onco-DX = 16. B. S/B WL is/XRT, 12/09. C. Adjuvant tamoxifen, 12/09. 1. Severe ongoing vasomotor symptoms. 2. Celexa, ongoing. D. Adjuvant femara, 06/10. 1. Rx hold, 09/11. E. Adjuvant Arimidex, 10/11. F. Family history of breast CA (sister age 43, mother age 72). 20 gene panel through [facility] negative. 2. Osteoporosis. A. Prior therapy with alendronate >> poor tolerance. B. 2-year course of Forteo, completed 09/08. C. Prolia, 12/09. 3. Macular degeneration, wet. A. Ongoing treatment >> a flu percept. 4. DJD, right knee. A. S/p partial knee replacement, 10/11. SUBJECTIVE: Jeffery returns for short interval follow-up, to check in to see how she is feeling off of AI therapy. She is already scheduled for her next Prolia with Dr. Ralph, this coming July. She feels markedly improved off of anastrozole. Reduced joint aches as well as reduced hot flashes.She feels a bit conflicted about stopping however is inclined to hold off on further therapy, knowing she has a relatively low risk of distant recurrence based on her discussion with Dr. Raplh. Crispin has concerns about ongoing bone loss on AI. Since she was last seen, she has been diagnosed with mild sleep apnea. Additionally she has resumedtherapy with a statin, and seems to be tolerating it well. She no longer sees her breast surgeon. She had mammography this past December. REVIEW OF SYMPTOMS: I went through a verbal review of symptoms with the patient. Symptoms as noted above. System review is otherwise without acute complaints. Past medical, surgical, family and social history reviewed and updated. , lives in [place]. Objective: BP (!) 157/70 Pulse (!) 46 Temp 36.8 ??C (98.2 ??F) (Skin) Resp 16 Wt 67.6 kg (149 lb) SpO2 100% BMI 25.31 kg/m?? General appearance: alert, no distress Head: Normocephalic, without obvious abnormality, atraumatic Neurologic: Grossly normal Mental Status: mood and affect appropriate, speech and thought process intact ASSESSMENT: Breast cancer, with diagnosis and therapy as documented above. This was a node-negativemoderately differentiated invasive tumor, ER/WI positive and HER2 negative. Jeffery underwent surgery and radiation, initially took tamoxifen, then letrozole, with side effects with both drugs. She next tried anastrozole, again with building side effects. After a long discussion with Dr. Ralph in early January, they agreed she would hold anastrozole and check in at this visit. She feels markedly better off the drug, and currently is inclined to hold off on resuming, knowing she has completed over 5 years of endocrine therapy overall. She is up-to-date with mammography, and has been without clinical evidence of recurrence or new malignancy. Given osteoporosis, she has been receiving Prolia, and will be due for this next this coming July. PLAN: Jeffery will continue to consider whether there is a strong role for ongoing AI therapy, but is inclined to continue to hold anastrozole at this time. Annual mammography next due in December 2024. Continue good sources of calcium in the diet, vitamin D and weightbearing exercise. Repeat DEXA would be due in July 2025. Follow-up as scheduled with Dr. Ralph in early July, with labs and Prolia due at that time as well. Follow-up as above, sooner with acute concerns or questions. I spent a total of 35 minutes on the date of this encounter meeting with the patient and reviewing documentation/coordinating care as described in the above note. No procedures were performed at the time of the visit. Xena Nieves PA-C 03/30/2024 14:28 documented in this encounter Plan of Treatment Upcoming Encounters Date Type Department Care Team (Late st Contact Info) Description 07/21/2024 11:00 EDT Office Visit [facility] Ophthalmology - [address] [id number] Marcial Magaña MD [address] [place] [address], [address] [place] [phone] 07/25/2024 11:00 EDT Phlebotomy Only [facility] Hematology & Oncology - [address] [address] Blood Doctor, [facility] Hem Onc 07/25/2024 11:45 EDT Office Visit [facility] Hematology & Oncology - [address] [address] Abebe Ralph MD [address] [place] [address], [facility], [address] [place] [phone] 07/25/2024 12:30 EDT Appointment [facility] Hematology & Oncology - [address] [phone] 01/03/2025 16:20 EDT Appointment [facility] Breast Imaging Mammography - [address] [phone] documented as of this encounter Visit Diagnoses Diagnosis Malignant neoplasm of upper-outer quadrant of right breast in female, estrogen receptor positive (HCC-CMS)- Primary Other osteoporosis without current pathological fracture Encounter for screening mammogram for malignant neoplasm of breast Other screening mammogram documented in this encounter Discontinued Medications Medication Sig Discontinue Reason Start Date End Da te anastrozole (ARIMIDEX) 1 mg tabletIndications:Malign ant neoplasm of upper-outer quadrant of right breast in female, estrogen receptor positive (HCC-CMS) TAKE 1 TABLET BY MOUTH DAILY 06/30/2023 03/30/2024 documented as of this encounter Historical Medications * This list may reflect changes made after this encounter. rosuvastatin (CRESTOR) 10 mg tablet Take 1 Tablet by mouth daily. 02/02/2024 added in this encounter Care Teams Machine Deburrer Relationship Specialty Start Date End Date Millie Hilton MD [address] [place] [address] PCP - General 01/03/22 Kimi Deleon MD [address] [place] [phone] 05/16/20 Hannah Batres NP [address] [place] [address] 05/16/20 documented as of this encounter
--- OUTSIDE RECORDS SUMMARY | 2024-04-19 08:08 | XMS_ITS | Encounter Summary ---
Author Organization [facility] Address [address] [place] [address] Care Team Providers Care Tank Car Cleaner Name Role Phone Kimi Deleon MD Unavailable Hannah Batres NP Unavailable [phone] Millie Hilton MD Primary Care Provider [phone] Reason for Visit * Reason Comments Eye Problem Encounter Details Date Type Department Care Team (Late st Contact Info) Description 04/12/2024 14:00 EST Office Visit [facility] Ophthalmology - [address] [address] Marcial Magaña MD [address] [employer] [employer], [address] 5 [place] [address] Social History Tobacco Use Types Packs/Day Years [...] documented in this encounter Progress Notes * Marcial Magaña MD - 04/12/2024 1400 EST Chief Complaint Patient presents with Eye Problem HPI 3 Month F/U: Wet AMD/CNVM Both Eyes, S/P: Eylea HD Both Eyes 01/05/2024, NSC Both Eyes- Angles Narrowing Monitoring Drops: None Pt states no pain or pressure in the eyes. No flashes or floaters. No VA issues to report Base Eye Exam Visual Acuity (Snellen - Linear) Right Left Dist sc 20/25 -2 20/30 -2 Tonometry (Applanation, 14:16) Right Left Pressure 12 13 Pupils Dark Light Shape React APD Right 4.5 3.5 Round Brisk None Left 4.5 3.5 Round Brisk None Neuro/Psych Oriented x3: Yes Mood/Affect: Normal Dilation Both eyes: Tropicamide 1%, Phenylephrine 2.5% @ 14:17 Slit Lamp and Fundus Exam Slit Lamp Exam Right Left Lids/Lashes Normal Normal Conjunctiva/Sclera White and quiet White and quiet Cornea Clear Clear Anterior Chamber Deep and quiet Deep and quiet Iris Round and reactive Round and reactive Lens 1+ Nuclear sclerosis 1+ Nuclear sclerosis Anterior Vitreous Vitreous syneresis Vitreous syneresis Fundus Exam Right Left Disc Normal Normal C/D Ratio 0.6 0.6 Macula intermediate and large drusen, PED inferior to fovea large drusen, RPE mottling Vessels Normal Normal Periphery Attached without predisposing lesions Attached without predisposing lesions OCT, Retina - OU - Both Eyes Right Eye Quality was good. Scan locations included subfoveal. Progression has been stable. Findings include pigment epithelial detachment. Left Eye Quality was good. Scan locations included juxtafoveal. Progression has been stable. Findings include pigment epithelial detachment. Notes No fluid both eyes Intravitreal Injection, Pharmacologic Agent - OU - Both Eyes Time Out 04/12/2024. 15:01. Confirmed correct patient, [...] Injection: 8 mg aflibercept 8 mg/0.07 mL Route: intravitreal, Site: Right Eye NDC: 75001-461-78, Lot: [id number], Expiration date: 03/22/2025 Left Eye Preparation included 5% betadine to ocular surface, eyelid speculum. A 30 gauge needle was used. Injection: 8 mg aflibercept 8 mg/0.07 mL Route: intravitreal, Site: Left Eye NDC: 02300-629-60, Lot: [id number], Expiration date: 01/20/2025 Post-op Right Eye Post [...] education. Post injection medications were not given. DIAGNOSES: 1. Exudative age-related macular degeneration of both eyes with active choroidal neovascularization([facility]) OCT, RETINA - OU - BOTH EYES INTRAVITREAL INJECTION, PHARMACOLOGIC AGENT - OU - BOTH EYES aflibercept (EYLEA HD) intravitreal solution 8 mg aflibercept (EYLEA HD) intravitreal solution 8 mg Assessment Wet age-related macular degeneration both eyes Stable vision with occasional rare SR cysts 14 weeks s/p Eylea HD right eye Stable vision without fluid under Eylea every 14 weeks left eye (even 17 weeks out) Offer Eylea HD both eyes today and and continue every 14 weeks - not longer Patient agrees Eylea HD injection done to both eyes Nuclear cataract both eyes Not visually significant but angles are becoming narrower Observe for now Return in about 14 weeks (around 07/19/2024), or if symptoms worsen or fail to improve, for Dilation, OCT, Eylea HD both. I am scribing for Dr. Marcial Magaña MD while he is personally performing the service. Bennett Ott (Scribe) documented in this encounter Plan of Treatment Upcoming Encounters Date Type Department Care Team (Late st Contact Info) Description 07/21/2024 11:00 EDT Office Visit [facility] Ophthalmology - [address] [id number] Marcial Magaña MD [address] [place] [address] 5 [place] [phone] 07/25/2024 11:00 EDT Phlebotomy Only [facility] Hematology & Oncology - [address] [phone] Blood Doctor, [facility] Hem Onc 07/25/2024 11:45 EDT Office Visit [facility] Hematology & Oncology [address] [id number] Abebe Ralph MD [address] [place] [address], [address] 2 [place] [phone] 07/25/2024 12:30 EDT Appointment [facility] Hematology & Oncology [address] [id number] 01/03/2025 16:20 EDT Appointment [facility] Breast Imaging Mammography - [address] [phone] documented as of this encounter Procedures Procedure Name Priority Date/Time Associated Diagnosis Comments INTRAVITREAL INJECTION, PHARMACOLOGIC AGENT - OU - BOTH EYES Routine 04/12/2024 15:03 EST Exudative age-related macular degeneration of both eyes with active choroidal neovascularization (HCC-CMS) OCT, RETINA - OU - BOTH EYES Routine 04/12/2024 14:44 EST Exudative age-related macular degeneration of both eyes with active choroidal neovascularization (HCC-CMS) documented in this encounter Results * INTRAVITREAL INJECTION, PHARMACOLOGIC AGENT - OU - BOTH EYES (04/12/2024 15:03 EST) Narrative [facility] POINT OF CARE - 04/12/2024 16:02 EST [...] mg/0.07 mL ??Route: intravitreal, Site: Right Eye ??[facility]: 11966-124-31, Lot: [id number], Expiration date: 03/22/2025 Left Eye Preparation included 5% betadine to ocular surface, eyelid speculum. A 30 gauge needle was used. Injection: 8 mg aflibercept 8 mg/0.07 mL ??Route: intravitreal, Site: Left Eye ??[facility]: 25284-877-89, Lot: [id number], Expiration date: 01/20/2025 Post-op Right Eye Post [...] MD OPHTH CLINIC PROCEDURES Final Re sult [facility] POINT OF CARE * OCT, RETINA - OU - BOTH EYES (04/12/2024 14:44 EST) Narrative [facility] OPHTHALMOLOGY - 04/12/2024 16:03 EST Right Eye Quality was good. Scan locations included subfoveal. Progression has been stable. Findings include pigment epithelial detachment. Left Eye Quality was good. Scan locations included juxtafoveal. Progression has been stable. Findings include pigment epithelial detachment. Notes No fluid both eyes Marcial Magaña MD OPHTH TOMOGRAPHY Final Result Performing Organization Address [facility] Co de Phone Number [facility] OPHTHALMOLOGY documented in this encounter Visit Diagnoses Diagnosis Exudative age-related macular degeneration of both eyes with active choroidal neovascularization ([facility])- Primary Encounter for screening mammogram for malignant neoplasm of breast Other screening mammogram documented in this encounter Administered Medications Inactive Administered Medications - up to 3 most recent administrations Medication Order MAR Action Action Date Dose Rate Site aflibercept (EYLEA HD) intravitreal solution 8 mg 8 mg, intravitreal, Starting on Thu04/12/24 at 1602, Until Thu04/12/24 at 1602, RoutineIndications:Exudative age-related macular degeneration of both eyes with active choroidal neovascularization ([facility]) Given 04/12/2024 16:02 EST 8 mg Right E ye aflibercept (EYLEA HD) intravitreal solution 8 mg 8 mg, intravitreal, Starting on Thu04/12/24 at 1602, Until Thu04/12/24 at 1602, RoutineIndications:Exudative age-related macular degeneration of both eyes with active choroidal neovascularization ([facility]) Given 04/12/2024 16:02 EST 8 mg Left Ey e documented in this encounter Orders Medications Ordered That Trevor ht Not Have Been Administered Count Last Ordered Date First Ordered Date aflibercept (EYLEA HD) intra vitreal solution 8 mg 1 04/12/2024 documented in this encounter Eye Exam Visual Acuity (Snellen - Linear) Right eye Left eye Dist sc 20/25 -2 20/30 -2 Tonometry (Applanation, 14:16) Right eye Left eye Pressure 12 13 Pupils Dark Light Shape React APD Right eye 4.5 3.5 Round Brisk None Left eye 4.5 3.5 Round Brisk None Neuro/Psych Oriented x3: Yes Mood/Affect: Normal Dilation Both eyes: Tropicamide 1%, P henylephrine 2.5% @ 14:17 Slit Lamp Exam Right eye Left eye Lids/Lashes Normal Normal Conjunctiva/Sclera White and quiet White and renzo et Cornea Clear Clear Anterior Chamber Deep and quiet Deep and quiet Iris Round and reactive Round and gerald ctive Lens 1+ Nuclear sclerosis 1+ Nuclear sclerosis Anterior Vitreous Vitreous syneresis Vitreous sy neresis Fundus Exam Right eye Left eye Disc Normal Normal C/D Ratio 0.6 0.6 Macula intermediate and lar ge drusen, PED inferior to fovea large drusen, RPE mottling Vessels Normal Normal Periphery Attached without predisposing le sions Attached without predisposing lesions Care Teams Tank Car Cleaner Relationship Specialty Start Date End Date Millie Hilton MD [address] [place] [address] PCP - General 01/03/22 Kimi Deleon MD [address] [place] [phone] 05/16/20 Hannah Batres NP [address] [place] [address] 05/16/20 documented as of this encounter
--- OUTSIDE RECORDS SUMMARY | 2024-04-19 08:08 | XMS_ITS | Encounter Summary ---
Author Organization [facility] Address [address] [place] [address] Care Team Providers Care Store Custodian Name Role Phone Kimi Deleon MD Unavailable [phone] Hannah Batres NP Unavailable [phone] Millie Hilton MD Primary Care Provider [phone] Reason for Referral * Prior Authorization (Routine/Next Available) - Authorization Not Required Specialty Diagnoses / Procedures Referred By [facility] Referred To Contact Diagnoses Malignant neoplasm of upper-outer quadrant of right breast in female, estrogen receptor positive (HCC-CMS) Abebe Ralph MD [address] [place] [address] [address] [place] [address] Phone: tel: fax: [facility] Hematology & [place] [address] Phone: tel: fax: Referral ID Status Reason Start Date Expiration Date Visits Requested Visits Authorized [id number] Authorization Not Required Specialty Services Required 07/28/2023 1 1 Question Answer Reason for Request: breast cancer index Comments genomic test that can predict the benefit of extended endocrine therapy in early-stage, HR+ breast cancer.1-2 That means avoiding potential overtreatment of patients for whom endocrine therapy beyond 5 years is unlikely to provide benefit. Encounter Details Date Type Department Care Team (Late st Contact Info) Description 07/28/2023 Orders Only [facility] Hematology & Oncology - [facility] [address] [place] [address] Terese Wolff, RN [address] [place] [address] Malignant neoplasm of upper-outer quadrant of right [...] documented in this encounter Progress Notes * Terese Wolff RN - 07/28/2023 1251 EDT Prior auth BCI testing per PK documented in this encounter Plan of Treatment Upcoming Encounters Date Type Department Care Team (Late st Contact Info) Description 07/21/2024 11:00 EDT Office Visit [facility] Ophthalmology - [address] [phone] Marcial Magaña MD [address] [place] [address] 5 [place] [phone] 07/25/2024 11:00 EDT Phlebotomy Only [facility] Hematology & Oncology [address] [phone] Blood Doctor, [facility] Hem Onc 07/25/2024 11:45 EDT Office Visit [facility] Hematology & Oncology [address] [address] Abebe Ralph MD [address] [place] [address], [address] [place] [phone] 07/25/2024 12:30 EDT Appointment [facility] Hematology & Oncology [address] [phone] 01/03/2025 16:20 EDT Appointment [facility] Breast Imaging Mammography - [address] [phone] Scheduled Referrals Name Type Priority Associated Diagnoses Order Schedule AMB CONS/FOLLOW UP GENETIC TESTING PRIOR AUTHORIZATION REQUEST Outpatient Referral Routine/Next Available Malignant neoplasm of upper-outer quadrant of right breast in female, estrogen receptor positive (HCC-CMS) Expected: 08/04/2023 (Approximate), Expires: 07/27/2024 documented as of this encounter Visit Diagnoses Diagnosis Malignant neoplasm of upper-outer quadrant of right breast in female, estrogen receptor positive (HCC-CMS)- Primary Encounter for screening mammogram for malignant neoplasm of breast Other screening mammogram documented in this encounter Care Teams Store Custodian Relationship Specialty Start Date End Date Millie Hilton MD [address] [place] [address] PCP - General 01/03/22 Kimi Deleon MD [address] [place] [address] 05/16/20 Hannah Batres NP [address] [place] [address] 05/16/20 documented as of this encounter
--- OUTSIDE RECORDS SUMMARY | 2024-04-19 08:08 | XMS_ITS | Encounter Summary ---
Author Organization [facility] Address [address] [place] [address] Care Team Providers Care Historic Sites Registrar Name Role Phone Kimi Deleon MD Unavailable [phone] Hannah Batres EXTENDED INSURANCE CLERK Unavailable [phone] Millie Hilton MD Primary Care Provider [phone] Reason for Visit * Reason Comments Eye Problem Pt. Here for follow up with H/O Wet AMD both eyes, NS Cataract Both eyes. S/p Eylea both eyes, on 03/10/23. * Prior Authorization (Routine) - Authorized Specialty Diagnoses / Procedures Referred By Raghu worrell Referred To Contact Diagnoses Exudative age-related macular degeneration of both eyes with active choroidal neovascularization (HCC-CMS) Nuclear sclerosis of both eyes Procedures WY INTRAVITREAL NJX PHARMACOLOGIC AGT SPX WY AFLIBERCEPT INJECTION WY BEVACIZUMAB INJECTION [facility] Ophthalmology Main [place] [address] [place] [address] Phone: tel: fax: [facility] Ophthalmology Main [place] [address] [place] [address] Phone: tel: fax: Referral ID Status Reason Start Date Expiration Date V isits Requested Visits Authorized [id number] Authorized 04/28/2023 04/28/2024 2 12 Encounter Details Date Type Department Care Team (Late st Contact Info) Description 04/28/2023 14:00 EST Office Visit [facility] Ophthalmology - Main [address] [address] Marcial Magaña MD [address] [facility], [address] [place] [phone] Social History Tobacco Use Types Packs/Day Years [...] Progress Notes * Marcial Magaña MD - 04/28/2023 1400 EST Chief Complaint Patient presents with Eye Problem Pt. Here for follow up with H/O Wet AMD both eyes, NS Cataract Both eyes. S/p Eylea both eyes, on 03/10/23. HPI Eye Problem Comments: Pt. Here for follow up with H/O Wet AMD both eyes, NS Cataract Both eyes. S/p Eylea both eyes, on 03/10/23. Comments Pt. States VA stable, no eye pain, no new or different f/f. Base Eye Exam Visual Acuity (Snellen - Linear) Right Left Dist cc 20/20 20/20 Correction: Glasses Tonometry (Applanation, 14:48) Right Left Pressure 12 12 Pupils Dark Light Shape React APD Right 5 3 Round Brisk None Left 5 3 Round Brisk None Neuro/Psych Oriented x3: Yes Mood/Affect: Normal Dilation Both eyes: Tropicamide 1%, Phenylephrine 2.5% @ 14:48 Slit Lamp and Fundus Exam Slit Lamp [...] both eyes Intravitreal Injection, Pharmacologic Agent - OD - Right Eye Time Out 04/28/2023. 15:52. Confirmed correct patient, procedure, site, and patient consented. Anesthesia Topical anesthesia was used. Anesthetic medications included Proparacaine 0.5%, Tetracaine 0.5%. Procedure Preparation included 5% betadine to ocular surface, eyelid speculum. A 30 gauge needle was used. Injection: 2 mg aflibercept 2 mg/0.05 mL Route: intravitreal, Site: Right Eye [facility]: 64913-375-30, Lot: [id number], Expiration date: 04/23/2024 Post-op Post injection exam found visual acuity of at least counting fingers. The patient tolerated the procedure well. There were no complications. Post injection medications were not given. DIAGNOSES: 1. Exudative age-related macular degeneration of both eyes with active choroidal neovascularization([facility]) OCT, RETINA - OU - BOTH EYES INTRAVITREAL INJECTION, PHARMACOLOGIC AGENT - OD - RIGHT EYE aflibercept (EYLEA) intravitreal syringe 2 mg 2. Nuclear sclerosis of both eyes Assessment Wet age-related macular degeneration both eyes Stable vision with occasional rare SR cysts under Eylea every 7 weeks right eye Stable vision without fluid under Eylea every 14 weeks left eye Had fluid and vision loss 8 weeks out right eye. Offer Eylea right eye and continue every 7 weeks for right eye and 14 weeks for the left. Patient agrees Eylea injection done to right eye today Nuclear cataract both eyes Not visually significant Observe Return in about 7 weeks (around 06/16/2023), or if symptoms worsen or fail to improve, for dilation,OCT, Eylea, right eye. I am scribing for Dr. Marcial Magaña MD while he is personally performing the service. MERLINE Sewell (Scribe) documented in this encounter Plan of Treatment Upcoming Encounters Date Type Department Care Team (Late st Contact Info) Description 07/21/2024 11:00 EDT Office Visit [facility] Ophthalmology - [address] [phone] Marcial Magaña MD [address] [place] [address] [address] [place] [phone] 07/25/2024 11:00 EDT Phlebotomy Only [facility] Hematology & Oncology - [address] [phone] Blood Doctor, [facility] Hem Onc 07/25/2024 11:45 EDT Office Visit [facility] Hematology & Oncology [address] [phone] Abebe Ralph MD [address] [place] [address], Level [address] [place] [phone] 07/25/2024 12:30 EDT Appointment [facility] Cancer Center Hematology & Oncology - [facility] [address] [place] [address] 01/03/2025 16:20 EDT Appointment [facility] Breast Imaging Mammography - [address] [address] documented as of this encounter Procedures Procedure Name Priority Date/Time Associated Diagnosis Comments INTRAVITREAL INJECTION, PHARMACOLOGIC AGENT - OD - RIGHT EYE Routine 04/28/2023 16:00 EST Exudative age-related macular degeneration of both eyes with active choroidal neovascularization (HCC-CMS) OCT, RETINA - OU - BOTH EYES Routine 04/28/2023 15:43 EST Exudative age-related macular degeneration of both eyes with active choroidal neovascularization (HCC-CMS) documented in this encounter Results * INTRAVITREAL INJECTION, PHARMACOLOGIC AGENT - OD - RIGHT EYE (04/28/2023 16:00 EST) Narrative [facility] POINT OF CARE - 04/30/2023 7:54 EST Time Out 04/28/2023. 15:52. Confirmed correct patient, procedure, site, and patient consented. Anesthesia Topical anesthesia was used. Anesthetic medications included Proparacaine 0.5%, Tetracaine 0.5%. Procedure Preparation included 5% betadine to ocular surface, eyelid speculum. A 30 gauge needle was used. Injection: 2 mg aflibercept 2 mg/0.05 mL ??Route: intravitreal, Site: Right Eye ??[facility]: 72246-307-15, Lot: [id number], Expiration date: 04/23/2024 Post-op Post injection exam found visual acuity of at least counting fingers. The patient tolerated the procedure well. There were no complications. Post injection medications were not given. us Marcial Magaña MD OPHTH CLINIC PROCEDURES Final Re sult [facility] POINT OF CARE * OCT, RETINA - OU - BOTH EYES (04/28/2023 15:43 EST) Narrative [facility] OPHTHALMOLOGY - 04/30/2023 7:54 EST Right Eye Quality was good. Scan locations included subfoveal. Progression has been stable. Findings include pigment epithelial detachment. Left Eye Quality was good. Scan locations included juxtafoveal. Progression has been stable. Findings include pigment epithelial detachment. Notes No fluid both eyes Marcial Magaña MD OPHTH TOMOGRAPHY Final Result [facility] OPHTHALMOLOGY documented in this encounter Visit Diagnoses Diagnosis Exudative age-related macular degeneration of both eyes with active choroidal neovascularization (HCC-CMS)- Primary Nuclear sclerosis of both eyes Encounter for screening mammogram for malignant neoplasm of breast Other screening mammogram documented in this encounter Administered Medications Inactive Administered Medications - up to 3 most recent administrations Medication Order MAR Action Action Date Dose Rate Site aflibercept (EYLEA) intravitreal syringe 2 mg 2 mg, intravitreal, Starting on Thu04/28/23 at 1600, Until Thu04/30/23 at 0955, RoutineIndications:Exudative age-related macular degeneration of both eyes with active choroidal neovascularization (HCC-CMS) Given 04/28/2023 16:00 EST 2 mg Right E ye documented in this encounter Orders Medications Ordered That Trevor ht Not Have Been Administered Count Last Ordered Date First Ordered Date aflibercept (EYLEA) intravit real syringe 2 mg 1 04/28/2023 documented in this encounter Eye Exam Visual Acuity (Snellen - Linear) Right eye Left eye Dist cc 20/20 20/20 Correction: Glasses Tonometry (Applanation, 14:48) Right eye Left eye Pressure 12 12 Pupils Dark Light Shape React APD Right eye 5 3 Round Brisk None Left eye 5 3 Round Brisk None Neuro/Psych Oriented x3: Yes Mood/Affect: Normal Dilation Both eyes: Tropicamide 1%, P henylephrine 2.5% @ 14:48 Slit Lamp Exam Right eye Left eye [...] sions Attached without predisposing lesions Care Teams Historic Sites Registrar Relationship Specialty Start Date End Date Millie Hilton MD [address] [place] [address] PCP - General 01/03/22 Kimi Deleon MD [address] [place] [phone] 05/16/20 Hannah Batres NP [address] [place] [address] 05/16/20 documented as of this encounter
--- OUTSIDE RECORDS SUMMARY | 2024-04-19 08:08 | XMS_ITS | Encounter Summary ---
Author Organization [facility] Address [address] [place] [address] Care Team Providers Care Supervisor Riveting Name Role Phone Kimi Deleon MD Unavailable Hannah Batres NP Unavailable [phone] Millie Hilton MD Primary Care Provider [phone] Reason for Visit * Reason Comments Eye Problem Encounter Details Date Type Department Care Team (Late st Contact Info) Description 03/10/2023 14:00 EST Office Visit [facility] Ophthalmology - [address] [address] Marcial Magaña MD [address] [facility], Level 5 [place] [address] Social History Tobacco Use Types [...] Progress Notes * Marcial Magaña MD - 03/10/2023 1400 EST Chief Complaint Patient presents with Eye Problem HPI Patient here Wet AMD both eyes, s/p eylea right eye 01/27/23. VA seems to be the same but right eye does feel different since last visit. She did have floaters up until 2 days ago. No eye pain but does feel discomfort. Base Eye Exam Visual Acuity (Snellen - Linear) Right Left Dist cc 20/20 20/20 Correction: Glasses Tonometry (Applanation, 14:15) Right Left Pressure 12 12 Pupils APD Right None Left None Neuro/Psych Oriented x3: Yes Mood/Affect: Normal Dilation Both eyes: Phenylephrine 2.5%, Tropicamide 1% @ 14:11 Slit Lamp and Fundus Exam Slit Lamp Exam Right Left Lids/Lashes Normal Normal Conjunctiva/Sclera White and quiet White and quiet Cornea Clear Clear Anterior Chamber Deep and quiet Deep and quiet Iris Round and reactive Round and reactive Lens Nuclear sclerosis Nuclear sclerosis Anterior Vitreous Vitreous syneresis Vitreous [...] stable. Findings include pigment epithelial detachment. Notes Stable SR cysts right eye No fluid left Intravitreal Injection, Pharmacologic Agent - OU - Both Eyes Time Out 03/10/2023. 15:41. Confirmed correct patient, procedure, site, and patient [...] mg/0.05 mL Route: intravitreal, Site: Right Eye NDC: 33706-767-38, Lot: [id number], Expiration date: 04/23/2024 Left Eye Preparation included 5% betadine to ocular surface, eyelid speculum. A 30 gauge needle was used. Injection: 2 mg aflibercept 2 mg/0.05 mL Route: intravitreal, Site: Left Eye NDC: 46508-567-04, Lot: 04/23/2024 Post-op Right Eye Post injection exam found visual acuity of at least counting fingers. The patient tolerated the procedure well. There were no complications. Post injection medications were not given. Left Eye Post injection exam found visual acuity of at least counting fingers. The patient tolerated the procedure well. There were no complications. Post injection medications were not given. DIAGNOSES: 1. Exudative age-related macular degeneration of both eyes with active choroidal neovascularization([facility]) OCT, RETINA - OU - BOTH EYES INTRAVITREAL INJECTION, PHARMACOLOGIC AGENT - OU - BOTH EYES aflibercept (EYLEA) intravitreal syringe 2 mg aflibercept (EYLEA) intravitreal syringe 2 mg 2. Nuclear sclerosis of both eyes Assessment Wet age-related macular degeneration both eyes Stable vision with occasional rare SR cysts under Eylea every 7 weeks right eye Stable vision without fluid under Eylea every 14 weeks left eye Had fluid and vision loss 8 weeks out right eye. Offer Eylea both and continue every 7 weeks for right eye and 14 weeks for the left. Patient agrees Eylea injection done to both eyes today Nuclear cataract both eyes Not visually significant Observe Return in about 7 weeks (around 04/28/2023), or if symptoms worsen or fail to improve, for dilation, OCT, Eylea, right eye. I am scribing for Dr. Marcial Magaña MD while he is personally performing the service. MERLINE Sewell (Scribe) documented in this encounter Plan of Treatment Upcoming Encounters Date Type Department Care Team (Late st Contact Info) Description 07/21/2024 11:00 EDT Office Visit [facility] Ophthalmology - [address] [id number] Marcial Magaña MD [address] [place] [address] 5 [place] [phone] 07/25/2024 11:00 EDT Phlebotomy Only [facility] Hematology & Oncology - [address] [address] Blood Doctor, [facility] Hem Onc 07/25/2024 11:45 EDT Office Visit [facility] Hematology & Oncology [address] [phone] Abebe Ralph MD [address] [place] [address], [place] [facility] 2 [place] [phone] 07/25/2024 12:30 EDT Appointment [facility] Hematology & Oncology - [address] [phone] 01/03/2025 16:20 EDT Appointment [facility] Breast Imaging Mammography - [address] [phone] documented as of this encounter Procedures Procedure Name Priority Date/Time Associated Diagnosis Comments INTRAVITREAL INJECTION, PHARMACOLOGIC AGENT - OU - BOTH EYES Routine 03/10/2023 15:43 EST Exudative age-related macular degeneration of both eyes with active choroidal neovascularization ([facility]) OCT, RETINA - OU - BOTH EYES Routine 03/10/2023 15:29 EST Exudative age-related macular 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 15:41. Confirmed correct patient, procedure, site, and patient [...] mg/0.05 mL ??Route: intravitreal, Site: Right Eye ??[facility]: 60658-825-73, Lot: [id number], Expiration date: 04/23/2024 Left Eye Preparation included 5% betadine to ocular surface, eyelid speculum. A 30 gauge needle was used. Injection: 2 mg aflibercept 2 mg/0.05 mL ??Route: intravitreal, Site: Left Eye ??[facility]: 35424-714-38, Lot: 04/23/2024 Post-op Right Eye Post injection exam found visual acuity of at least counting fingers. The patient tolerated the procedure well. There were no complications. Post injection medications were not given. Left Eye Post injection exam found visual acuity of at least counting fingers. The patient tolerated the procedure well. There were no complications. Post injection medications were not given. Marcial Magaña MD OPHTH CLINIC PROCEDURES Final Re sult [facility] POINT OF CARE * OCT, RETINA - OU - BOTH EYES (03/10/2023 15:29 EST) Narrative [facility] OPHTHALMOLOGY - 03/10/2023 16:39 EST Right Eye Quality was good. Scan locations included subfoveal. Progression has been stable. Findings include pigment epithelial detachment. Left Eye Quality was good. Scan locations included juxtafoveal. Progression has been stable. Findings include pigment epithelial detachment. Notes Stable SR cysts right eye No fluid left Marcial Magaña MD OPHTH TOMOGRAPHY Final Result [facility] OPHTHALMOLOGY documented in this encounter Visit [...] 2 mg 2 mg, intravitreal, Starting on Thu03/10/23 at 1639, Until Thu03/10/23 at 1639, RoutineIndications:Exudative age-related macular degeneration of both eyes with active choroidal neovascularization ([facility]) Given 03/10/2023 16:39 EST 2 mg Right E ye aflibercept (EYLEA) intravitreal syringe 2 mg 2 mg, intravitreal, Starting on e 03/10/23 at 1639, Until Tu03/10/23 at 1639, RoutineIndications:Exudative age-related macular degeneration of both eyes with active choroidal neovascularization ([facility]) Given 03/10/2023 16:39 EST 2 mg Left Ey e documented in this encounter Orders Medications Ordered That Trevor ht Not Have Been Administered Count Last Ordered Date First Ordered Date aflibercept (EYLEA) intravit real syringe 2 mg 1 03/10/2023 documented in this encounter Eye Exam Visual Acuity (Snellen - Linear) Right eye Left eye Dist cc 20/20 20/20 Correction: Glasses Tonometry (Applanation, 14:15) Right eye Left eye Pressure 12 12 Pupils APD Right eye None Left eye None Neuro/Psych Oriented x3: Yes Mood/Affect: Normal Dilation Both eyes: Phenylephrine 2.5 %, Tropicamide 1% @ 14:11 Slit Lamp Exam Right eye Left eye Lids/Lashes Normal Normal Conjunctiva/Sclera White and quiet White and renzo et Cornea Clear Clear Anterior Chamber Deep and quiet Deep and quiet Iris Round and reactive Round and gerald ctive Lens Nuclear sclerosis Nuclear sclero sis Anterior Vitreous Vitreous syneresis Vitreous sy neresis Fundus Exam Right eye Left eye Disc Normal Normal C/D Ratio 0.6 0.6 Macula intermediate and lar ge drusen, PED inferior to fovea large drusen, RPE mottling Vessels Normal Normal Periphery Attached without predisposing le sions Attached without predisposing lesions Care Teams Supervisor Riveting Relationship Specialty Start Date End Date Millie Hilton MD [address] [place] [address] PCP - General 01/03/22 Kimi Deleon MD [address] [place] [address] 05/16/20 Hannah Batres NP [address] [place] [address] 05/16/20 documented as of this encounter
--- OUTSIDE RECORDS SUMMARY | 2024-04-19 08:08 | XMS_ITS | Encounter Summary ---
Author Organization [facility] Address [address] [place] [address] Care Team Providers Care Svp Chief Marketing Officer Name Role Phone Kimi Deleon MD Unavailable [phone] Hannah Batres NP Unavailable [phone] Millie Hilton MD Primary Care Provider [phone] Reason for Visit * Episode Based Medications (Routine) - Authorized Specialty Diagnoses / Procedures [facility]erred To Contact Diagnoses Estrogen receptor positive status (ER+) Other osteoporosis without current pathological fracture Abebe Ralph MD [address] [place] [address] 2 [place] [address] Phone: tel: fax: [facility] Hematology Oncology [address] [address] Phone: tel: fax: Referral ID Status Reason Start Date Expiration Date V isits Requested Visits Authorized [id number] Authorized 09/09/2021 01/24/2026 5 10 Encounter Details Date Type Department Care Team (Latest Contact Info) Description 01/25/2024 9:39 EST - 01/25/2024 23:59 EST Hospital Encounter [facility] Hematology & Oncology [address] [address] Age-related osteoporosis without current pathological fracture (Primary [...] skin every 6 months. (started 12/16/18 at [facility]) Fish Oil-Marion-3 Fatty Acids 360-1,200 mg capsule 1360mg, 2 [...] MOUTH DAILY 90 Tablet 3 06/30/2023 5 documented as of this encounter Discharge Disposition Disposition Code Departure Means Destination Home or Self Care documented in this encounter Progress Notes * Alma Bosch RN - 01/25/2024 1130 EST Patient arrives today for Cycle 7 of Denosumab (prolia). Labs reviewed, parameters met for treatment. Patient confirms she is taking calcium & vitamin D at home; no recent or upcoming dental procedures. Denosumab 60 mg SC administered to left arm. Patent tolerated this without issue. A request has been sent for cycle 8. Due in 6 months. I was supervised by Dr. Ralph who was present and immediately available in the office suite. ALMA BOSCH RN 01/25/2024 11:25 documented in this encounter Miscellaneous Notes * Addendum Note - Kindra Saucedo - 01/25/2024 1130 ESTEncounter addended by: Kindra Saucedo on: 01/26/2024 8:57 Actions taken: Charge Capture section accepted documented in this encounter Plan of Treatment Upcoming Encounters Date Type Department Care Team (Late st Contact Info) Description 07/21/2024 11:00 EDT Office Visit [facility] Ophthalmology - [address] [phone] Marcial Magaña MD [address] [place] [address], Level [address] [place] [phone] 07/25/2024 11:00 EDT Phlebotomy Only [facility] Hematology & Oncology [address] [phone] Blood Doctor, [facility] Hem Onc 07/25/2024 11:45 EDT Office Visit [facility] Hematology & Oncology [address] [phone] Abebe Ralph MD [address] [place] [address], Level [address] [place] [phone] 07/25/2024 12:30 EDT Appointment [facility] Hematology & Oncology [address] [phone] 01/03/2025 16:20 EDT Appointment [facility] Breast Imaging Mammography - [address] [phone] documented as of this encounter Procedures Procedure Name Priority Date/Time Associated Diagnosis Comments PHOSPHORUS STAT 01/25/2024 9:46 EST Age-related osteoporosis without current pathological fracture documented in this encounter Results * PHOSPHORUS (01/25/2024 9:46 EST) Phosphorus 3.6 2.5 - 4.5 mg/dL 01/25/2024 11:15 EST [facility] Blood VENOUS BLOOD / Unknown Venipuncture / Unknown 01/25/2024 9:46 EST 01/25/2024 9:52 EST us Abebe Ralph MD CHEMISTRY & BLOOD GAS ORDERAB LES Final Result [facility] [address] [place] [phone] documented in this encounter Visit Diagnoses Diagnosis Age-related osteoporosis without current pathological fracture- Primary Senile osteoporosis Estrogen receptor positive status (ER+) Estrogen receptor positive status [ER+] Other osteoporosis without current pathological fracture Encounter for screening mammogram for malignant neoplasm of breast Other screening mammogram documented in this encounter Administered Medications Inactive Administered Medications - up to 3 most recent administrations Medication Order MAR Action Action Date Dose Rate Site denosumab (PROLIA) syringe 60 mg 60 mg, subcutaneous, NOW X1, 1 dose, On 01/25/24 at 1115, RoutineIndications:Estrogen receptor positive status (ER+),Other osteoporosis without current pathological fracture Given 01/25/2024 11:22 EST 60 mg Left Arm documented in this encounter Orders Medications Ordered That Trevor ht Not Have Been Administered Count Last Ordered Date First Ordered Date denosumab (PROLIA) syringe 60 mg 1 01/25/20 24 Nursing Count Last Ordered Date First Orde red Date NURSING COMMUNICATION 1 01/25/2024 Appointment Requests Count Last Ordered Date Fi rst Ordered Date ONCBCN INJECTION APPOINTMENT REQUEST 2 06/2023 documented in this encounter Care Teams Svp Chief Marketing Officer Relationship Specialty Start Date End Date Millie Hilton MD [address] [place] [address] PCP - General 01/03/22 Kimi Deleon MD [address] [place] [phone] 05/16/20 Hannah Batres NP [address] [place] [address] 05/16/20 documented as of this encounter
--- OUTSIDE RECORDS SUMMARY | 2024-04-19 08:08 | XMS_ITS | Encounter Summary ---
Author Organization [facility] Address [address] [place] [address] Care Team Providers Care Fire Fighters Dispatcher Name Role Phone Kimi Deleon MD Unavailable Hannah Batres NP Unavailable [phone] Millie Hilton MD Primary Care Provider [phone] Reason for Visit * Reason Onset Date Comments Appointment Related 01/25/2024 Encounter Details Date Type Department Care Team (Late st Contact Info) Description 01/25/2024 Telephone [facility] H[facility]ology [facility] - [facility] [address] [place] [address] Abebe Ralph MD 111 [facility] 2 [place] [address] Appointment Related Social History Tobacco [...] encounter Miscellaneous Notes * Telephone Encounter - Feli Samaniego - 01/25/2024 1514 EST Called patient regarding upcoming appointments. Scheduled 2 month follow up wit PK on 03/29/2024 @ 1115 for 1 hour - arrival time @ 1100. Patient confirmed. documented in this encounter Plan of Treatment Upcoming Encounters Date Type Department Care Team (Late st Contact Info) Description 07/21/2024 11:00 EDT Office Visit [facility] Ophthalmology [address] [address] Marcial Magaña MD [address] [place] [address], Level [address] [place] [address] 07/25/2024 11:00 EDT Phlebotomy Only [facility] Hematology & Oncology [address] [phone] Blood Doctor, [facility] Hem Onc 07/25/2024 11:45 EDT Office Visit [facility] Hematology & Oncology [address] [phone] Abebe Ralph MD [address] [facility], Level [address] [place] [phone] 07/25/2024 12:30 EDT Appointment [facility] Hematology & Oncology - [address] [phone] 01/03/2025 16:20 EDT Appointment [facility] Breast Imaging Mammography - [address] [address] documented as of this encounter Visit Diagnoses Not on filedocumented in this encounter Care Teams Fire Fighters Dispatcher Relationship Specialty Start Date End Date Millie Hilton MD [address] [place] [address] PCP - General 01/03/22 Kimi Deleon MD [address] [place] [address] 05/16/20 Hannah Batres NP [address] [place] [address] 05/16/20 documented as of this encounter
--- OUTSIDE RECORDS SUMMARY | 2024-04-19 08:08 | XMS_ITS | Encounter Summary ---
Author Organization [facility] Address [address] [place] [address] Care Team Providers Care Parking Line Painter Name Role Phone Kimi Deleon MD Unavailable [phone] Hannah Batres NP Unavailable [phone] Millie Hilton MD Primary Care Provider [phone] Reason for Referral * Radiology Services (Routine/Next Available) - Specialty Report Received Specialty Diagnoses / Procedures Referred By [facility] Referred To Contact Diagnoses Estrogen receptor positive status (ER+) Other osteoporosis without current pathological fracture Procedures DXA BONE DENSITY Abebe Ralph MD [address] [place] [phone] Phone: tel: fax: [facility] Referral ID Status Reason Start Date Expiration Date V isits Requested Visits Authorized [id number] Specialty Report Received 07/27/2023 1 1 Reason for Visit * Reason Comments Follow-up Injections Encounter Details Date Type Department Care Team (Late st Contact Info) Description 07/27/2023 9:45 EDT Office Visit [facility] Cancer Center Hematology & Oncology - [place] [id number] Abebe Ralph MD [address] [place] [phone] Estrogen receptor positive status (ER+) (Primary Dx); [...] Sign Reading Time Taken Comments Blood Pressure 151/69 07/27/2023 0914 EDT Pulse 51 07/27/2023 0914 EDT Temperature 36.2 ??C (97.1 ??F) 07/27/2023 0914 EDT Respiratory Rate 16 07/27/2023 0914 EDT Oxygen Saturation 99% 07/27/2023 0914 EDT Inhaled Oxygen Concentration - - Weight 67.4 kg (148 lb 11.2 oz) 07/27/2023 0914 EDT Height 163 cm (5' 4.17) 07/27/2023 0914 EDT Body Mass Index 25.39 07/27/2023 0914 EDT documented in this encounter Functional Status * [...] documented in this encounter Progress Notes * Taylor Wilburn MA - 07/27/2023 0968 EDT * Abebe Ralph MD - 07/27/2023 0912 EDT Subjective Jeffery Garvey is a 72 y.o. [...] cm cancer, 0/3 sentinel nodes, grade 2, ER/AZ+, HER-2 negative (IHC = 0). LVI negative. Onco-DX = 16. B. S/B WL is/XRT, 12/09. C. Adjuvant tamoxifen, 12/09. 1. Severe ongoing vasomotor symptoms. 2. Celexa, ongoing. A. D/C'd. D. Adjuvant femara, 06/10. 1. Rx hold, 09/11. E. Adjuvant Arimidex, 10/11. 1. Switch to prior behavioral consultant of anastrozole (Zydus), 02/12. 2. Osteoporosis. A. Prior therapy with alendronate >> poor tolerance. B. 2-year course of Forteo, completed 09/08. C. Prolia, 12/09. 3. Macular degeneration, wet. A. Ongoing treatment >> a flu percept. 4. DJD, right knee. A. S/p partial knee replacement, 10/11. 5. Hypercholesterolemia, '24. A. Lipitor, 05/16. HPI: Jeffery Garvey returns in follow-up, continuing on adjuvant Arimidex, as above. Please see my prior notes in regards to the generic anastrozole she is on into the supplier, which she now is continuing with. She overall feels that she continues to be if anything tolerating this better. Which she notes now is still 1-3 hot flashes awakening her/night, however generally she is able to fall aslee p pretty readily, and she thinks this is stable to perhaps slightly improved. She continues to notesome occasional aches or musculoskeletal symptoms which she once again feels are stable to perhaps slightly better. She did undergo a pretty extensive cardiology workup this past winter, seeing a clinical dietitian at [facility], it sounds like initially just for evaluation of hypercholesterolemia but then she underwent a fairly extensive cardiac evaluation including EKG, echocardiogram, she thinks stress test x 2, and Zio patch. It sounds like perhaps this was done nearly 4 bradycardia which isgenerally asymptomatic, although she does note she does get lightheaded on occasion. In any case she is now seeing clinical dietitian for this and was began on a statin due to her hypercholesterolemia. ROS Except as noted above in the HPI, Jeffery Vallebacks full remaining 10 point review of systems, including constitutional, cardiac, pulmonary, GI, /MEDICAL DOCTOR, neurologic, musculoskeletal, HEENT, psychiatric, and endocrine, and [...] tablet TAKE 1 TABLET BY MOUTH DAILY aspirin chewable 81 mg tablet Take 1 Tablet by mouth daily. (Patient not taking: Reported on 07/27/2023) atorvastatin (LIPITOR) 20 mg tablet Take 1 Tablet by mouth daily. calcium carbonate/vitamin D3 (CALCIUM 500 + D [...] skin every 6 months. (started 12/16/18 at [facility]) Fish Oil-Grady-3 Fatty Acids 360-1,200 mg capsule 1360mg, 2 [...] Take 1 caplet by mouth daily. Vitals: 07/27/23 0914 BP: (!) 151/69 Pulse: 51 Resp: 16 Temp: 36.2 ??C (97.1 ??F) TempSrc: Skin SpO2: 99% Weight: 67.4 kg (148 lb 11.2 oz) Height: 163 cm (64.17) Wt Readings from Last 3 Encounters: 07/27/23 67.4 kg (148 lb 11.2 oz) 01/28/23 66.2 kg (146 lb) 08/04/22 70.6 kg (155 lb 11.2 oz) Physical Exam Objective: Jeffery Garvey is [...] disease. She has had no breast complaints. As noted above she is in was seen by a clinical dietitian this past winter and underwent fairly extensive cardiac workup. I do not have these records but from the history and her gives it sounds like she was initially found to be modestly hypercholesterolemia, begun on statin, but her perception is her local clinical dietitian was somewhat concerned about her bradycardia. She did undergo a pretty extensive workup as noted above which her understanding was all on remarkable. She has had no significant other interval health issues or illnesses arise and is overall feeling well. She does continue to note modest but subjectively quite tolerable side effects quite possibly due to her Arimidex. We discussed in detail today the risk/benefits of proceeding with extended adjuvant endocrine therapy, she will be at her initial 5-year jj of adjuvant endocrine therapy this fall. I did discuss in detail the data underlying breast cancer index with her and its limitations, I will send this off. Additionally she will be due for follow-up DEXA scan and we discussed in detail the impact of this as well in terms of decision making in regards to adjuvant endocrine therapy. I spent a total of 70 with minutes on the date of this [...] Info) Description 07/21/2024 11:00 EDT Office Visit [facility] Ophthalmology [address] [phone] Marcial Magaña MD [address] [place] [address] 5 [place] [phone] 07/25/2024 11:00 EDT Phlebotomy Only [facility] Hematology & Oncology [address] [id number] Blood Doctor, [facility] Hem Onc 07/25/2024 11:45 EDT Office Visit [facility] Hematology & Oncology [address] [phone] Abebe Ralph MD [address] [place] [address], [address] [place] [phone] 07/25/2024 12:30 EDT Appointment [facility] Hematology & Oncology [address] [address] 01/03/2025 16:20 EDT Appointment [facility] Breast Imaging Mammography - [facility] [address] [place] [address] documented as of this encounter Results * DXA BONE DENSITY (07/30/2023 14:04 EDT) Anatomical Region Laterality Modality Other us Abebe Ralph MD IMG DEXA ORDERABLES Final Res ult documented in this encounter Visit Diagnoses Diagnosis Estrogen receptor positive status (ER+)- Primary Estrogen receptor positive status [ER+] Other osteoporosis without current pathological fracture Encounter for screening mammogram for malignant neoplasm of breast Other screening mammogram documented in this encounter Historical Medications * This list may reflect changes made after this encounter. atorvastatin (LIPITOR) 20 mg tablet Take 1 Tablet by mouth daily. 06/23/2023 01/05/2024 added in this encounter Orders Appointment Requests Count Last Ordered Date Fi rst Ordered Date ONCBCN INJECTION APPOINTMENT REQUEST 1 06/2023 documented in this encounter Care Teams Parking Line Painter Relationship Specialty Start Date End Date Millie Hilton MD [address] [place], [place] [address] PCP - General 01/03/22 Kimi Deleon MD [address] [place] [phone] 05/16/20 Hannah Batres NP [address] [place] [address] 05/16/20 documented as of this encounter
--- OUTSIDE RECORDS SUMMARY | 2024-04-19 08:08 | XMS_ITS | Encounter Summary ---
Author Organization [facility] Address [address] [place] [address] Care Team Providers Care Heel Sander Name Role Phone Kimi Deleon MD Unavailable [phone] Hannah Batres NP Unavailable [phone] Millie Hilton MD Primary Care Provider [phone] Reason for Visit * Reason Comments Eye Problem Encounter Details Date Type Department Care Team (Late st Contact Info) Description 10/13/2023 13:00 EDT Office Visit [facility] Ophthalmology - [address] [address] Marcial Magaña MD [address] [facility], [address] [place] [address] Social History Tobacco Use Types [...] Progress Notes * Marcial Magaña MD - 10/13/2023 1300 EDT Chief Complaint Patient presents with Eye Problem HPI follow up Wet age-related macular degeneration both eyes s/p Eylea HD #1 right eye 07/27/23 and s/p Eylea left eye 06/16/23. Pt stats was seen in ED for cornea abrasion, treated with antibiotic 6 x daily left eye , feeing better now, No new flashes or floaters Base Eye Exam Visual Acuity (Snellen - Linear) Right Left Dist cc 20/20 -2 20/25 -2 Correction: Glasses Tonometry (Applanation, 13:19) Right Left Pressure 13 13 Neuro/Psych Oriented x3: Yes Mood/Affect: Normal Dilation Both eyes: Phenylephrine 2.5%, Tropicamide 1% @ 13:19 Slit Lamp and Fundus Exam Slit Lamp Exam Right Left Lids/Lashes Normal Normal Conjunctiva/Sclera White and quiet White and quiet Cornea Clear Clear Anterior Chamber Narrow and quiet Narrow and quiet Iris Round and reactive Round and reactive Lens 1+ Nuclear sclerosis 1+ Nuclear sclerosis Anterior Vitreous Vitreous syneresis Vitreous syneresis Fundus Exam Right Left Disc Normal Normal C/D Ratio 0.6 0.6 Macula intermediate and large drusen, PED inferior to fovea large drusen, RPE mottling Vessels Normal Normal Periphery Attached without predisposing lesions Attached without predisposing lesions Please refer to large retinal drawing. OCT, Retina - OU - Both Eyes Right Eye Quality was good. Scan locations included subfoveal. Progression has been stable. Findings include pigment epithelial detachment. Left Eye Quality was good. Scan locations included juxtafoveal. Progression has been stable. Findings include pigment epithelial detachment. Notes No fluid both eyes Intravitreal Injection, Pharmacologic Agent - OU - Both Eyes Time Out 10/13/2023. 15:05. Confirmed correct patient, procedure, site, and patient [...] mL Route: intravitreal, Site: Right Eye NDC: 63499-466-09, Lot: [id number], Expiration date: 08/20/2024 Left Eye Preparation included 5% betadine to ocular surface, eyelid speculum. A 30 gauge needle was used. Injection: 8 mg aflibercept 8 mg/0.07 mL Route: intravitreal, Site: Left Eye NDC: 61514-159-28, Lot: [id number], Expiration date: 06/20/2024 Post-op Right Eye Post injection exam found visual acuity of at least counting fingers. The patient tolerated the procedure well. There were no complications. Post injection medications were not given. Left Eye Post injection exam found visual acuity of at least counting fingers. The patient tolerated the procedure well. There were no complications. Post injection medications were not given. IMPRESSION: 1. Exudative age-related macular degeneration of both eyes with active choroidal neovascularization([facility]) OCT, RETINA - OU - BOTH EYES INTRAVITREAL INJECTION, PHARMACOLOGIC AGENT - OU - BOTH EYES aflibercept (EYLEA HD) intravitreal solution 8 mg aflibercept (EYLEA HD) intravitreal solution 8 mg 2. Nuclear sclerosis of both eyes PLAN: Wet age-related macular degeneration both eyes Stable vision with occasional rare SR cysts 10 weeks s/p Eylea HD right eye vs 7 weeks s/p Eylea Stable vision without fluid under Eylea every 14 weeks left eye (now 17 weeks out) Had fluid and vision loss 8 weeks out right eye. Offer Eylea HD both eyes today and and attempt extension to 12 weeks (then 14) Patient agrees Eylea HD injection done to both eyes Nuclear cataract both eyes Not visually significant but angles are becoming narrower Observe for now Return in about 12 weeks (around 01/05/2024), or if symptoms worsen or fail to improve, for dilation, OCT, Eylea HD, both eyes. I, Marcial Magaña MD, have performed my own history, and have evaluated and examined the patient myself. I am scribing for Marcial Magaña MD while he is personally performing the service. MERLINE Sewell (Scribe) documented in this encounter Plan of Treatment Upcoming Encounters Date Type Department Care Team (Late st Contact Info) Description 07/21/2024 11:00 EDT Office Visit [facility] Ophthalmology - [address] [phone] Marcial Magaña MD [address] [place] [address], [facility] [address] [place] [phone] 07/25/2024 11:00 EDT Phlebotomy Only [facility] Hematology & Oncology - [address] [phone] Blood Doctor, [facility] Hem Onc 07/25/2024 11:45 EDT Office Visit [facility] Hematology & Oncology [address] [address] Abebe Ralph MD [address] [place] [address], [address] [place] [address] 07/25/2024 12:30 EDT Appointment [facility] Hematology & Oncology [address] [phone] 01/03/2025 16:20 EDT Appointment [facility] Breast Imaging [address] [address] documented as of this encounter Procedures Procedure Name Priority Date/Time Associated Diagnosis Comments OCT, RETINA - OU - BOTH EYES Routine 10/13/2023 15:13 EDT Exudative age-related macular degeneration of both eyes with active choroidal neovascularization ([facility]) INTRAVITREAL INJECTION, PHARMACOLOGIC AGENT - OU - BOTH EYES Routine 10/13/2023 15:13 EDT Exudative age-related macular degeneration of both eyes with active choroidal neovascularization ([facility]) documented in this encounter Results * OCT, RETINA - OU - BOTH EYES (10/13/2023 15:13 EDT) Narrative [facility] OPHTHALMOLOGY - 10/13/2023 19:00 EDT Right Eye Quality was good. Scan locations included subfoveal. Progression has been stable. Findings include pigment epithelial detachment. Left Eye Quality was good. Scan locations included juxtafoveal. Progression has been stable. Findings include pigment epithelial detachment. Notes No fluid both eyes Marcial Magaña MD OPHTH TOMOGRAPHY Final Result [facility] OPHTHALMOLOGY * INTRAVITREAL INJECTION, PHARMACOLOGIC AGENT - OU - BOTH EYES (10/13/2023 15:13 EDT) Narrative [facility] POINT OF CARE - 10/13/2023 19:00 EDT Time Out 10/13/2023. 15:05. Confirmed correct patient, procedure, site, and patient [...] mg/0.07 mL ??Route: intravitreal, Site: Right Eye ??[facility]: 37903-611-16, Lot: [id number], Expiration date: 08/20/2024 Left Eye Preparation included 5% betadine to ocular surface, eyelid speculum. A 30 gauge needle was used. Injection: 8 mg aflibercept 8 mg/0.07 mL ??Route: intravitreal, Site: Left Eye ??NDC: 32304-539-52, Lot: [id number], Expiration date: 06/20/2024 Post-op Right Eye Post injection exam found [...] MD OPHTH CLINIC PROCEDURES Final Re sult [facility] POINT OF CARE documented in this encounter Visit Diagnoses Diagnosis [...] 8 mg 8 mg, intravitreal, Starting on Thu10/13/23 at 1900, Until Thu10/13/23 at 1900, RoutineIndications:Exudative age-related macular degeneration of both eyes with active choroidal neovascularization (HCC-CMS) Given 10/13/2023 19:00 EDT 8 mg Right E ye aflibercept (EYLEA HD) intravitreal solution 8 mg 8 mg, intravitreal, Starting on Thu10/13/23 at 1900, Until Thu10/13/23 at 1900, RoutineIndications:Exudative age-related macular degeneration of both eyes with active choroidal neovascularization (HCC-CMS) Given 10/13/2023 19:00 EDT 8 mg Left Ey e documented in this encounter Orders Medications Ordered That Trevor ht Not Have Been Administered Count Last Ordered Date First Ordered Date aflibercept (EYLEA HD) intra vitreal solution 8 mg 1 10/13/2023 documented in this encounter Eye Exam Visual Acuity (Snellen - Linear) Right eye Left eye Dist cc 20/20 -2 20/25 -2 Correction: Glasses Tonometry (Applanation, 13:19) Right eye Left eye Pressure 13 13 Neuro/Psych Oriented x3: Yes Mood/Affect: Normal Dilation Both eyes: Phenylephrine 2.5 %, Tropicamide 1% @ 13:19 Slit Lamp Exam Right eye Left eye Lids/Lashes Normal Normal Conjunctiva/Sclera White and quiet White and renzo et Cornea Clear Clear Anterior Chamber Narrow and quiet Narrow and renzo et Iris Round and reactive Round and gerald [...] sions Attached without predisposing lesions Care Teams Heel Sander Relationship Specialty Start Date End Date Millie Hilton MD [address] [place] [address] PCP - General 01/03/22 Kimi Deleon MD [address] [place] [phone] 05/16/20 Hannah Batres NP [address] [place], [place] [address] 05/16/20 documented as of this encounter
--- OUTSIDE RECORDS SUMMARY | 2024-04-19 08:08 | XMS_ITS | Encounter Summary ---
Author Organization [facility] Address [address] [place] [address] Care Team Providers Care Weather Observer Name Role Phone Kimi Deleon MD Unavailable [phone] Hannah Batres NP Unavailable [phone] Millie Hilton MD Primary Care Provider [phone] Reason for Visit * Reason Onset Date Comments Appointment Related 03/03/2024 Encounter Details Date Type Department Care Team (Late st Contact Info) Description 03/03/2024 Telephone [facility] Cancer Center Hematology & Oncology - [facility] [address] [place] [address] Abebe Ralph MD [address] [facility] 2 [place] [address] Appointment Related Social History Tobacco [...] encounter Miscellaneous Notes * Telephone Encounter - Nisa Foote - 03/03/2024 1111 EST Spoke with Jeffery regarding appointment change from Loree to Taylor for 03/30 appointment documented in this encounter Plan of Treatment Upcoming Encounters Date Type Department Care Team (Late st Contact Info) Description 07/21/2024 11:00 EDT Office Visit [facility] Ophthalmology [address] [phone] Marcial Magaña MD [address] [place] [address], [address] [place] [phone] 07/25/2024 11:00 EDT Phlebotomy Only [facility] Hematology & Oncology [address] [phone] Blood Doctor, [facility] Hem Onc 07/25/2024 11:45 EDT Office Visit [facility] Hematology & Oncology [address] [phone] Abebe Ralph MD [address] [place], [place] [address], [address] [place] [address] 07/25/2024 12:30 EDT Appointment [facility] Center Hematology & Oncology - [address] [phone] 01/03/2025 16:20 EDT Appointment [facility] Breast Imaging Mammography - [address] [phone] documented as of this encounter Visit Diagnoses Not on filedocumented in this encounter Care Teams Weather Observer Relationship Specialty Start Date End Date Millie Hilton MD [address] [place] [address] PCP - General 01/03/22 Kimi Deleon MD [address] [place] [phone] 05/16/20 Hannah Batres NP [address] [place] [address] 05/16/20 documented as of this encounter
--- OUTSIDE RECORDS SUMMARY | 2024-04-19 08:08 | XMS_ITS | Encounter Summary ---
Author Organization [facility] Address [address] [place] [address] Care Team Providers Care Hospital Admissions Clerk Name Role Phone Kimi Deleon MD Unavailable Hannah Batres NP Unavailable [phone] Millie Hilton MD Primary Care Provider [phone] Reason for Visit * Reason Comments Follow-up Encounter Details Date Type Department Care Team (Late st Contact Info) Description 08/06/2023 12:45 EDT Office Visit [facility] Ophthalmology - [address] [address] Marcial Magaña MD [address] [facility], Level 5 [place] [address] Social History Tobacco Use Types [...] Progress Notes * Marcial Magaña MD - 08/06/2023 1245 EDT Chief Complaint Patient presents with Follow-up HPI Pt here for 7 week f/u for Wet AMD both S/P Eylea both (06-16-23) VA stable both. No floaters or flashes. No pain Base Eye Exam Visual Acuity (Snellen - Linear) Right Left Dist sc 20/40 +2 20/25 -2 Dist ph sc 20/25 -2 Tonometry (Applanation, 13:13) Right Left Pressure 11 11 Neuro/Psych Oriented x3: Yes Mood/Affect: Normal Dilation Both eyes: Tropicamide 1% @ 13:13 Slit Lamp and Fundus Exam Slit Lamp [...] - OD - Right Eye Time Out 08/06/2023. 14:17. Confirmed correct patient, procedure, site, and patient consented. Anesthesia Topical anesthesia was used. Anesthetic medications included Proparacaine 0.5%, Tetracaine 0.5%. Procedure Preparation included 5% betadine to ocular surface, eyelid speculum. A 30 gauge needle was used. Injection: 8 mg aflibercept 8 mg/0.07 mL Route: intravitreal, Site: Right Eye [facility]: 15206-057-15, Lot: [id number], Expiration date: 07/20/2024 Post-op Post injection exam found visual acuity of at least counting fingers. The patient tolerated the procedure well. There were no complications. Post injection medications were not given. IMPRESSION: 1. Exudative age-related macular degeneration of both eyes with active choroidal neovascularization([facility]) OCT, RETINA - OU - BOTH EYES INTRAVITREAL INJECTION, PHARMACOLOGIC AGENT - OD - RIGHT EYE aflibercept (EYLEA HD) intravitreal solution 8 mg 2. Nuclear sclerosis of both eyes PLAN: Wet age-related macular degeneration both eyes Stable vision with occasional rare SR cysts under Eylea every 7 weeks right eye Stable vision without fluid under Eylea every 14 weeks left eye Had fluid and vision loss 8 weeks out right eye. Offer Eylea HD right eye today and attempt extension to 9 weeks Patient agrees Eylea HD injection done to right eye today Nuclear cataract both eyes Not visually significant but angles are becoming narrower Observe for now Return in about 2 months (around 10/13/2023), or if symptoms worsen or fail to improve, for dilation, OCT, Eylea HD both. I, Marcial Magaña MD, have performed my own history, and have evaluated and examined the patient myself. I am scribing for Marcial Magaña MD while he is personally performing the service. MERLINE Sewell (Scribe) documented in this encounter Plan of Treatment Upcoming Encounters Date Type Department Care Team (Late st Contact Info) Description 07/21/2024 11:00 EDT Office Visit [facility] Ophthalmology - [address] [phone] Marcial Magaña MD [address] [place] [address], [facility] [address] [place] [phone] 07/25/2024 11:00 EDT Phlebotomy Only [facility] Hematology & Oncology - [address] [phone] Blood Doctor, [facility] Hem Onc 07/25/2024 11:45 EDT Office Visit [facility] Hematology & Oncology - [address] [phone] Abebe Ralph MD [address] [place] [address], Level 2 [place] [phone] 07/25/2024 12:30 EDT Appointment [facility] Hematology & Oncology - [address] [phone] 01/03/2025 16:20 EDT Appointment [facility] Breast Imaging Mammography - [address] [phone] documented as of this encounter Procedures Procedure Name Priority Date/Time Associated Diagnosis Comments INTRAVITREAL INJECTION, PHARMACOLOGIC AGENT - OD - RIGHT EYE Routine 08/06/2023 14:22 EDT Exudative age-related macular degeneration of both eyes with active choroidal neovascularization (HCC-CMS) OCT, RETINA - OU - BOTH EYES Routine 08/06/2023 14:14 EDT Exudative age-related macular degeneration of both eyes with active choroidal neovascularization (HCC-CMS) documented in this encounter Results * INTRAVITREAL INJECTION, PHARMACOLOGIC AGENT - OD - RIGHT EYE (08/06/2023 14:22 EDT) Narrative [facility] POINT OF CARE - 08/06/2023 17:17 EDT Time Out 08/06/2023. 14:17. Confirmed correct patient, procedure, site, and patient consented. Anesthesia Topical anesthesia was used. Anesthetic medications included Proparacaine 0.5%, Tetracaine 0.5%. Procedure Preparation included 5% betadine to ocular surface, eyelid speculum. A 30 gauge needle was used. Injection: 8 mg aflibercept 8 mg/0.07 mL ??Route: intravitreal, Site: Right Eye ??[facility]: 68015-254-11, Lot: [id number], Expiration date: 07/20/2024 Post-op Post injection exam found visual acuity of at least counting fingers. The patient tolerated the procedure well. There were no complications. Post injection medications were not given. Marcial Magaña MD OPHTH CLINIC PROCEDURES Final Re sult Performing Organization Address [facility] Co de Phone Number [facility] POINT OF CARE * OCT, RETINA - OU - BOTH EYES (08/06/2023 14:14 EDT) Narrative [facility] OPHTHALMOLOGY - 08/06/2023 17:17 EDT Right Eye Quality was good. Scan locations included subfoveal. Progression has been stable. Findings include pigment epithelial detachment. Left Eye Quality was good. Scan locations included juxtafoveal. Progression has been stable. Findings include pigment epithelial detachment. Notes No fluid both eyes Marcial Magaña MD OPHTH TOMOGRAPHY Final Result Performing Organization Address [facility] Co de Phone Number [facility] OPHTHALMOLOGY documented in this encounter Visit Diagnoses [...] 8 mg 8 mg, intravitreal, Starting on Emy 08/06/23 at 1717, Until Emy 08/06/23 at 1717, RoutineIndications:Exudative age-related macular degeneration of both eyes with active choroidal neovascularization (HCC-CMS) Given 08/06/2023 17:17 EDT 8 mg Right E ye documented in this encounter Orders Medications Ordered That Trevor ht Not Have Been Administered Count Last Ordered Date First Ordered Date aflibercept (EYLEA HD) intra vitreal solution 8 mg 1 08/06/2023 documented in this encounter Eye Exam Visual Acuity (Snellen - Linear) Right eye Left eye Dist sc 20/40 +2 20/25 -2 Dist ph sc 20/25 -2 Tonometry (Applanation, 13:13) Right eye Left eye Pressure 11 11 Neuro/Psych Oriented x3: Yes Mood/Affect: Normal Dilation Both eyes: Tropicamide 1% @ 13:13 Slit Lamp Exam Right eye Left eye [...] sions Attached without predisposing lesions Care Teams Hospital Admissions Clerk Relationship Specialty Start Date End Date Millie Hilton MD [address] [place] [address] PCP - General 01/03/22 Kimi Deleon MD [address] [place] [phone] 05/16/20 Hannah Batres NP [address] [place], [place] [address] 05/16/20 documented as of this encounter
--- OUTSIDE RECORDS SUMMARY | 2024-04-19 08:08 | XMS_ITS | Encounter Summary ---
Author Organization [facility] Address [address] [place] [address] Care Team Providers Care Associate Vice President Name Role Phone Kimi Deleon MD Unavailable [phone] Hannah Batres NP Unavailable [phone] Millie Hilton MD Primary Care Provider [phone] Encounter Details Date Type Department Care Team (Late st Contact Info) Description 01/18/2024 Orders Only [facility] Hematology & Oncology - [place] [address] [place] [address] Tatianna Devine, RN Malignant neoplasm of upper-outer quadrant of right breast in female, estrogen receptor positive (HCC-CMS) (Primary Dx); Estrogen receptor positive status (ER+); Other watermaster (current) drug therapy Social History Tobacco Use [...] documented in this encounter Progress Notes * Tatianna Devine RN - 01/18/2024 1325 EDT Lab orders placed for upcoming onc/Dr Ralph/lab apts. CBCd CMP (including serum glucose) Lipid profile - confirmed OK with Dr Ralph documented in this encounter Plan of Treatment Upcoming Encounters Date Type Department Care Team (Late st Contact Info) Description 07/21/2024 11:00 EDT Office Visit [facility] Ophthalmology - [address] [phone] Marcial Magaña MD [address] [place] [phone] 07/25/2024 11:00 EDT Phlebotomy Only [facility] Hematology & Oncology [address] [phone] Blood Doctor, [facility] Hem Onc 07/25/2024 11:45 EDT Office Visit [facility] Hematology & Oncology [address] [address] Abebe Ralph MD [address] [place] [address] [address] [place] [phone] 07/25/2024 12:30 EDT Appointment [facility] Hematology & Oncology - [address] [address] 01/03/2025 16:20 EDT Appointment [facility] Breast Imaging Mammography - [address] [phone] Scheduled Orders Name Type Priority Associated Diagnoses Orde r Schedule COMPLETE BLOOD COUNT AND DIFFERENTIAL Lab STAT Malignant neoplasm of upper-outer quadrant of right breast in female, estrogen receptor positive (HCC-CMS) Estrogen receptor positive status (ER+) 12 Occurrences starting 01/18/2024 until 01/17/2025, 1 completed COMPREHENSIVE METABOLIC PANEL (ONCOLOGY USE ONLY-INC MG) Lab STAT Malignant neoplasm of upper-outer quadrant of right breast in female, estrogen receptor positive (HCC-CMS) Estrogen receptor positive status (ER+) 12 Occurrences starting 01/18/2024 until 01/17/2025, 1 completed documented as of this encounter Results * (ABNORMAL) LIPID PROFILE (INCLUDES CHOLESTEROL, TRIGLYCERIDES, HDL, LDL) (01/25/2024 9:46 EST) Cholesterol 228(H) <200 mg/dL 01/25/2024 10:10 [facility] Comment:Note that therapeuti c goals will differ between patients based on cardiac risk factors and current medical therapy. HDL 53 >=50 mg/dl 01/25/2024 10:10 [facility] Comment:Note that therapeuti c goals will differ between patients based on cardiac risk factors and current medical therapy. LDL, Calculated 157 <160 mg/dL 10:10 [facility] Comment:Note that therapeuti c goals will differ between patients based on cardiac risk factors and current medical therapy. Triglyceride 90 <=150 mg/dL 01/25/2024 10:10 [facility] Comment:Note that therapeuti c goals will differ between patients based on cardiac risk factors and current medical therapy. Chol/HDL Ratio 4.3 See Note 01/25/2024 10:10 [facility] Comment:No reference range h as been established for CHOL/HDL ratio. Non HDL Cholesterol 175(H) <160 mg/dL 01/25/2024 10:10 [facility] Comment:Note that therapeuti c goals will differ between patients based on cardiac risk factors and current medical therapy. Blood VENOUS BLOOD / Unknown Venipuncture / Unknown 01/25/2024 9:46 EST 01/25/2024 9:52 EST us Abebe Ralph MD CHEMISTRY & BLOOD GAS ORDERAB LES Final Result [facility] [address] [place] [address] * COMPREHENSIVE METABOLIC PANEL (ONCOLOGY USE ONLY-INC MG) (01/25/2024 9:46 EST) Sodium 139 136 - 145 mmol/L 01/25/2024 10:10 [facility] Potassium 4.5 3.5 - 5.0 mmol/L 01/25/2024 10:10 [facility] Chloride 107 96 - 110 mmol/L 01/25/2024 10:10 [facility] CO2 Total 26 22 - 32 mmol/L 01/25/2024 10:10 [facility] Glucose 99 70 - 99 mg/dl 01/25/2024 10:10 [facility] BUN 19 10 - 26 mg/dL 01/25/2024 10:10 [facility] Creatinine 0.71 0.52 - 1.04 mg/dL 01/25/2024 10:10 [facility] eGFR 89 >60 mL/min/1.7 3m2 01/25/2024 10:10 [facility] Total Protein 7.4 6.3 - 8.2 g/dL 01/25/2024 10:10 [facility] Albumin 4.6 3.4 - 4.9 g/dL 01/25/2024 10:10 [facility] Alkaline Phosphatase 45 38 - 126 U/L 01/25/2024 10:10 [facility] AST 25 15 - 46 U/L 01/25/2024 10:10 [facility] ALT 18 <35 U/L 01/25/2024 10:10 [facility] Bilirubin, Total 0.5 <1.4 mg/dL 01/25/20 10:10 [facility] Calcium 9.5 8.5 - 10.5 mg/dL 01/25/2024 10:10 [facility] Magnesium 2.2 1.7 - 2.8 mg/dL 01/25/2024 10:10 [facility] Albumin/Globulin Ratio 1.6 1.0 - 2.5 01/25/2024 10:10 [facility] Anion Gap 6 5 - 14 mmol/L 01/25/2024 10:10 [facility] Blood VENOUS BLOOD / Unknown Venipuncture / Unknown 01/25/2024 9:46 EST 01/25/2024 9:52 EST us Abebe Ralph MD CHEMISTRY & BLOOD GAS ORDERAB LES Final Result [facility] [address] [place] [address] * COMPLETE BLOOD COUNT AND DIFFERENTIAL (01/25/2024 9:46 EST) WBC 5.05 4.00 - 12.40 K/cmm 01/25/2024 10:07 [facility] RBC 4.24 3.86 - 5.04 M/cmm 01/25/2024 10:07 [facility] Hemoglobin 13.5 11.6 - 15.2 g/dL 01/25/2024 10:07 [facility] HCT 39.1 34.9 - 44.4 % 01/25/2024 10:07 [facility] MCV 92 81 - 98 fL 01/25/2024 10:07 [facility] MCH 31.8 26.7 - 33.3 pg 01/25/2024 10:07 [facility] MCHC 34.5 32.1 - 35.9 g/dL 01/25/2024 10:07 [facility] RDW-CV 13.5 <14.7 % 01/25/2024 10:07 [facility] RDW-SD 45.8 <50.4 fl 01/25/2024 10:07 [facility] PLT 232 141 - 377 K/cmm 01/25/2024 10:07 [facility] MPV 10.8 9.5 - 12.7 fL 01/25/2024 10:07 [facility] % Neutrophils 45.3 Not Indicated % 01/25/2024 10:07 [facility] % Lymphocytes 43.0 Not Indicated % 01/25/2024 10:07 [facility] % Monocytes 9.1 Not Indicated % 01/25/2024 10:07 [facility] % Eosinophils 2.0 Not Indicated % 01/25/2024 10:07 [facility] % Basophils 0.4 Not Indicated % 01/25/2024 10:07 [facility] % Immature Grans 0.2 Not Indicated % 01/25/2024 10:07 [facility] Absolute Neutrophils 2.29 2.20 - 8.85 K/cmm 01/25/2024 10:07 [facility] Absolute Lymphocytes 2.17 1.09 - 3.30 K/cmm 01/25/2024 10:07 [facility] Absolute Monocytes 0.46 0.10 - 0.80 K/cmm 01/25/2024 10:07 [facility] Absolute Eosinophils 0.10 0.03 - 0.61 K/cmm 01/25/2024 10:07 [facility] ABS Basophils 0.02 0.01 - 0.11 K/cmm 01/25/2024 10:07 [facility] Absolute Immature Grans 0.01 0.00 - 0.06 K/cmm 01/25/2024 10:07 [facility] Type of Differential: Auto 01/25/2024 10:07 EST [facility] Blood VENOUS BLOOD / Unknown Venipuncture / Unknown 01/25/2024 9:46 EST 01/25/2024 9:52 EST us Aebbe Ralph MD PACKAGES & DNA PROBE ORDERABL ES Final Result [facility] [address] [place], [place] [phone] documented in this encounter Visit Diagnoses Diagnosis Malignant neoplasm of upper-outer quadrant of right breast in female, estrogen receptor positive (HCC-CMS)- Primary Estrogen receptor positive status (ER+) Estrogen receptor positive status [ER+] Other custodial (current) drug therapy Encounter for screening mammogram for malignant neoplasm of breast Other screening mammogram documented in this encounter Care Teams Associate Vice President Relationship Specialty Start Date End Date Millie Hilton MD [address] [place] [address] PCP - General 01/03/22 Kimi Deleon MD [address] [place] [phone] 05/16/20 Hannah Batres NP [address] [place] [address] 05/16/20 documented as of this encounter
--- OUTSIDE RECORDS SUMMARY | 2024-04-19 08:08 | XMS_ITS | Encounter Summary ---
Author Organization [facility] Address [address] [place] [address] Care Team Providers Care Grounds Restoration Specialist Name Role Phone Kimi Deleon MD Unavailable Hannah Batres NP Unavailable [phone] Millie Hilton MD Primary Care Provider Reason for Visit * Reason Comments Medications Refill Encounter Details Date Type Department Care Team (Late st Contact Info) Description 06/29/2023 Refill [facility] Hematology & Oncology - [address] [address] Abebe Ralph MD 111 [facility], Level [address] [place] [address] Medications Refill Social History Tobacco Use Types Packs/Day Years [...] 01/07/2018 8:37 EDT documented in this encounter Ordered Prescriptions Prescription Sig Dispense Quantity Refills Last Filled Start Date End Date anastrozole (ARIMIDEX) 1 mg tabletIndications: Malignant neoplasm of upper-outer quadrant of right breast in female, estrogen receptor positive (HCC-CMS) TAKE 1 TABLET BY MOUTH DAILY 90 Tablet 3 06/30/2023 03/30/2024 documented in this encounter Miscellaneous Notes * Telephone Encounter - Tatianna Devine RN - 06/29/2023 0967 EDT Medication: anastrozole (ARIMIDEX) 1 mg tablet Dose: As Directed Route: PO Frequency: Sig: TAKE 1 TABLET BY MOUTH DAILY Last Ordered (if refill): 06/02/2022 (D90, R3) Next PV: 07/27/2023 Loree 04/08/2023 Telemedicine (Loree): Adjuvant Arimidex, 10/11. 1. Switch to prior head of human resources of anastrozole (Zydus), 02/12. Jeffery Garvey returns in follow-up, continuing on adjuvant Arimidex, as above Pending for review and signature if appropriate. documented in this encounter Plan of Treatment Upcoming Encounters Date Type Department Care Team (Late st Contact Info) Description 07/21/2024 11:00 EDT Office Visit [facility] Ophthalmology - [address] [phone] Marcial Magaña MD [address] [place] [address], [facility] [address] [place] [phone] 07/25/2024 11:00 EDT Phlebotomy Only [facility] Hematology & Oncology [address] [phone] Blood Doctor, [facility] Hem Onc 07/25/2024 11:45 EDT Office Visit [facility] Hematology & Oncology [address] [phone] Abebe Ralph MD [address] [place] [address], [facility] [address] [place] [phone] 07/25/2024 12:30 EDT Appointment [facility] Hematology & Oncology [address] [phone] 01/03/2025 16:20 EDT Appointment [facility] Breast Imaging Mammography [address] [phone] documented as of this encounter Visit Diagnoses Diagnosis Malignant neoplasm of upper-outer quadrant of right breast in female, estrogen receptor positive (HCC-CMS) Encounter for screening mammogram for malignant neoplasm of breast Other screening mammogram documented in this encounter Discontinued Medications Medication Sig Discontinue Reason Start Date End Da te ANASTROZOLE ORAL Take by mouth. 06/30/2023 anastrozole (ARIMIDEX) 1 mg tabletIndications:Malign ant neoplasm of upper-outer quadrant of right breast in female, estrogen receptor positive (HCC-CMS) TAKE 1 TABLET BY MOUTH DAILY 06/02/2022 06/30/2023 documented as of this encounter Care Teams Grounds Restoration Specialist Relationship Specialty Start Date End Date Millie Hilton MD [address] [place] [phone] PCP - General 01/03/22 Kimi Deleon MD [address] [place] [phone] 05/16/20 Hannah Batres NP [address] [place] [address] 05/16/20 documented as of this encounter
--- OUTSIDE RECORDS SUMMARY | 2024-04-19 08:08 | XMS_ITS | Encounter Summary ---
Author Organization [facility] Address [address] [place] [address] Care Team Providers Care Practice Clinician Name Role Phone Kimi Deleon MD Unavailable Hannah Batres NP Unavailable [phone] Millie Hilton MD Primary Care Provider Reason for Visit * Radiology Services (Routine/Next Available) - Specialty Report Received Specialty Diagnoses / Procedures Referred By [facility] Referred To Contact Diagnoses Estrogen receptor positive status (ER+) Other osteoporosis without current pathological fracture Procedures DXA BONE DENSITY Abebe Ralph MD 111 [facility] 2 [place] [address] Phone: tel: fax: [facility] Referral ID Status Reason Start Date Expiration Date V isits Requested Visits Authorized [id number] Specialty Report Received 07/27/2023 1 1 Encounter Details Date Type Department Care Team (Latest Contact Info) Description 07/30/2023 13:50 EDT Ancillary Procedure [facility] Endocrinology - [address] [address] Estrogen receptor positive status (ER+); Other osteoporosis without current pathological fracture Social [...] Sign Reading Time Taken Comments Blood Pressure - - Pulse - - Temperature - - Respiratory Rate - - Oxygen Saturation - - Inhaled Oxygen Concentration - - Weight 67.4 kg (148 lb 9.6 oz) 07/30/2023 1404 E DT Height 163.3 cm (5' 4.29) 07/30/2023 1404 EDT Body Mass Index 25.28 07/30/2023 1404 EDT documented in this encounter Functional Status [...] 01/07/2018 8:37 EDT documented in this encounter Plan of Treatment Upcoming Encounters Date Type Department Care Team (Late st Contact Info) Description 07/21/2024 11:00 EDT Office Visit [facility] Ophthalmology - [address] [phone] Marcial Magaña MD [address] [place] [address], Level [address] [place] [phone] 07/25/2024 11:00 EDT Phlebotomy Only [facility] Hematology & Oncology [address] [phone] Blood Doctor, [facility] Hem Onc 07/25/2024 11:45 EDT Office Visit [facility] Hematology & Oncology [address] [phone] Abebe Ralph MD [address] [place] [address], Level [address] [place] [phone] 07/25/2024 12:30 EDT Appointment [facility] Hematology & Oncology [address] [phone] 01/03/2025 16:20 EDT Appointment [facility] Breast Imaging Mammography [address] [phone] documented as of this encounter Procedures Procedure Name Priority Date/Time Associated Diagnosis Comments DXA BONE DENSITY Routine 07/30/2023 14:04 EDT Estrogen receptor positive status (ER+) Other osteoporosis without current pathological fracture documented in this encounter Results * DXA BONE DENSITY (07/30/2023 14:04 EDT) Anatomical Region Laterality Modality Other us Abebe Ralph MD IMG DEXA ORDERABLES Final Res ult documented in this encounter Visit Diagnoses Diagnosis Estrogen receptor positive status (ER+) Estrogen receptor positive status [ER+] Other osteoporosis without current pathological fracture Encounter for screening mammogram for malignant neoplasm of breast Other screening mammogram documented in this encounter Care Teams Practice Clinician Relationship Specialty Start Date End Date Millie Hilton MD [address] [place] [address] PCP - General 01/03/22 Kimi Deleon MD [address] [place] [phone] 05/16/20 Hannah Batres NP [address] [place] [address] 05/16/20 documented as of this encounter
--- OUTSIDE RECORDS SUMMARY | 2024-04-19 08:08 | XMS_ITS | Encounter Summary ---
Author Organization [facility] Address [address] [place] [address] Care Team Providers Care Phlebotomist Medical Lab Assistant Name Role Phone Kimi Deleon MD Unavailable Hannah Batres NP Unavailable [phone] Millie Hilton MD Primary Care Provider [phone] Reason for Visit * Reason Onset Date Comments Appointment Related 12/24/2023 Encounter Details Date Type Department Care Team (Late st Contact Info) Description 12/24/2023 Telephone [facility] Hematology & Oncology - [facility] [address] [place] [address] Abebe Ralph MD 111 [facility] 2 [place] [address] Appointment Related Social History Tobacco [...] * Telephone Encounter - Feli Samaniego - 12/24/2023 1118 EDT Patient had arrived for 12/20 appt but was COVID+. Patient stated that she called and was told to come in for her appts despite testing + for COVID onSatday. Patient was not seen by PK. PK requested that patient be rescheduled on 01/07 @ 0830. Called patient to discuss 12/20 appt and to reschedule. Patient stated that she realized that she shouldn't have gone to a place filled with immunocompromised patients but was not thinking clearly on Thursday. Patient stated that she is going to be out-of town from Jan 06 or thru Jan 14 or . Shecan not come in for an appointment on 01/07. She will be in [place] on 12/28 for her mammogram (@1500) and 01/04 for her injection with Opthalmology (@ 1030) and was hoping for one of those days. Otherwise, she was wondering if it could wait until her 01/24 injection. She is currently scheduled to see Jorge Alberto that day. Sent message to PK to advise. PK approved moving FUR to 01/24 for 1 hour - same day as labs & injection. Called patient back. LMOM with update. Left PAC# documented in this encounter Plan of Treatment Upcoming Encounters Date Type Department Care Team (Late st Contact Info) Description 07/21/2024 11:00 EDT Office Visit [facility] Ophthalmology - [address] 160881 Marcial Magaña MD [address] [place] [address], [facility] [address] [place] [phone] 07/25/2024 11:00 EDT Phlebotomy Only [facility] Hematology & Oncology - [address] [phone] Blood Doctor, [facility] Hem Onc 07/25/2024 11:45 EDT Office Visit [facility] Hematology & Oncology [address] [address]63[address] Abebe Ralph MD [address] [place] [address], Level [address] [place] [phone] 07/25/2024 12:30 EDT Appointment [facility] Hematology & Oncology [address] 9520[address] 01/03/2025 16:20 EDT Appointment [facility] Breast Imaging Mammography - [address] [phone] documented as of this encounter Visit Diagnoses Not on filedocumented in this encounter Care Teams Phlebotomist Medical Lab Assistant Relationship Specialty Start Date End Date Millie Hilton MD [address] [place], [place] [address] PCP - General 01/03/22 Kimi Deleon MD [address] [place] [phone] 05/16/20 Hannah Batres NP [address] [place] [address] 05/16/20 documented as of this encounter
--- OUTSIDE RECORDS SUMMARY | 2024-04-19 08:08 | XMS_ITS | Encounter Summary ---
Author Organization [facility] Address [address] [place] [address] Care Team Providers Care Letter Carrier Name Role Phone Kimi Deleon MD Unavailable Hannah Batres NP Unavailable [phone] Millie Hilton MD Primary Care Provider [phone] Reason for Visit * Reason Comments Follow-up Skin lesions. Spots of concern on right breast and right lower cheek. Encounter Details Date Type Department Care Team (Late st Contact Info) Description 10/06/2023 9:45 EDT Office Visit [facility] Dermatology 5th Floor [facility] [address] [place] [address] Cameron Garner MD [address] [place] [phone] Multiple nevi (Primary Dx); Seborrheic keratoses; Lentigines Social History Tobacco Use Types Packs/Day Years [...] when you are drinking? 1 or 2 1 Q3: How often do you have si [...] documented in this encounter Progress Notes * Cameron Garner MD - 10/06/2023 0945 EDT Derm Hx BCC left lower eyelid Rx Mohs 2007 Melanie Ks Last seen 05/2021 S Follow-up (Skin lesions. Spots of concern on right breast and right lower cheek. ) O Examined face neck trunk both arms and legs R breast nevus papule R infra-oral crease area of concern no worrisome lesions Nevi, lentigines, melanie Ks A/P # nevi, lentigines, melanie Ks, reassure Rtc yr/prn Cameron Garner MD documented in this encounter Plan of Treatment Upcoming Encounters Date Type Department Care Team (Late st Contact Info) Description 07/21/2024 11:00 EDT Office Visit [facility] Ophthalmology - [address] [address] Marcial Magaña MD 111 [facility], Level 5 [place] [phone] 07/25/2024 11:00 EDT Phlebotomy Only [facility] Hematology & Oncology [address] 1689[address] Blood Doctor, [facility] Hem Onc 07/25/2024 11:45 EDT Office Visit [facility] Hematology & Oncology [address] [address] Abebe Ralph MD 111 [facility], Level 2 [place] [phone] 07/25/2024 12:30 EDT Appointment [facility] Hematology & Oncology [address] 0810[address] 01/03/2025 16:20 EDT Appointment [facility] Breast Imaging Mammography - [address] [address] documented as of this encounter Visit Diagnoses Diagnosis Multiple nevi- Primary Benign neoplasm of skin, site unspecified Seborrheic keratoses Lentigines Other dyschromia Encounter for screening mammogram for malignant neoplasm of breast Other screening mammogram documented in this encounter Historical Medications * This list may reflect changes made after this encounter. COQ10, UBIQUINOL, ORAL Take by mouth daily. added in this encounter Care Teams Letter Carrier Relationship Specialty Start Date End Date Millie Hilton MD 4 [place], [place] [address] PCP - General 01/03/22 Kimi Deleon MD [address] [place] [phone] 05/16/20 Hannah Batres NP [address] [place] [address] 05/16/20 documented as of this encounter
--- OUTSIDE RECORDS SUMMARY | 2024-04-19 08:08 | XMS_ITS | Encounter Summary ---
Author Organization [facility] Address [address] [place] [address] Care Team Providers Care Networking Administrator Name Role Phone Kimi Deleon MD Unavailable [phone] Hannah Batres NP Unavailable [phone] Millie Hilton MD Primary Care Provider [phone] Encounter Details Date Type Department Care Team (Late st Contact Info) Description 08/04/2023 Documentation Visit [facility] Cancer Center Hematology & Oncology - [facility] [address] [place] [address] Terese Wolff, RN [address] [place] [address] Social History Tobacco Use Types Packs/Day Years [...] Progress Notes * Terese Wolff RN - 08/04/2023 1015 EDT BCI testing submitted per Dr. Ralph Test Request [id number] documented in this encounter Plan of Treatment Upcoming Encounters Date Type Department Care Team (Late st Contact Info) Description 07/21/2024 11:00 EDT Office Visit [facility] Ophthalmology - [address] [address]38[address] Marcial Magaña MD [address] [place] [address], [facility] 5 [place] [phone] 07/25/2024 11:00 EDT Phlebotomy Only [facility] Hematology & Oncology [address] [phone] Blood Doctor, [facility] Hem Onc 07/25/2024 11:45 EDT Office Visit [facility] Hematology & Oncology [address] [phone] Abebe Ralph MD [address] [place] [address], [facility] [address] [place] [phone] 07/25/2024 12:30 EDT Appointment [facility] Cancer Center Hematology & Oncology - [address] [address] 01/03/2025 16:20 EDT Appointment [facility] Breast Imaging Mammography - [address] [address] documented as of this encounter Visit Diagnoses Not on filedocumented in this encounter Care Teams Networking Administrator Relationship Specialty Start Date End Date Millie Hilton MD 4 [place] [address] PCP - General 01/03/22 Kimi Deleon MD [address] [place] [address] 05/16/20 Hannah Batres NP [address] [place] [address] 05/16/20 documented as of this encounter
--- OUTSIDE RECORDS SUMMARY | 2024-04-19 08:08 | XMS_ITS | Encounter Summary ---
Author Organization [facility] Address [address] [place] [address] Care Team Providers Care Package Clerk Name Role Phone Kimi Deleon MD Unavailable Hannah Batres NP Unavailable [phone] Millie Hilton MD Primary Care Provider [phone] Reason for Visit * Reason Comments Eye Problem Encounter Details Date Type Department Care Team (Late st Contact Info) Description 06/16/2023 13:00 EDT Office Visit [facility] Ophthalmology - [address] [address] Marcial Magaña MD 111 [facility], Level [address] [place] [address] Social History Tobacco Use Types [...] Progress Notes * Marcial Magaña MD - 06/16/2023 1300 EDT Chief Complaint Patient presents with Eye Problem HPI 7 week follow up 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 No pain, no pressure. No new flashes or floaters Base Eye Exam Visual Acuity (Snellen - Linear) Right Left Dist cc 20/25 20/25 +2 Correction: Glasses Tonometry (Applanation, 13:15) Right Left Pressure 10 10 Neuro/Psych Oriented x3: Yes Mood/Affect: Normal Dilation Both eyes: Tropicamide 1%, Phenylephrine 2.5% @ 13:26 Slit Lamp and Fundus Exam Slit Lamp Exam Right Left Lids/Lashes Normal Normal Conjunctiva/Sclera White and quiet White and quiet Cornea Clear Clear Anterior Chamber Narrow angle, Quiet Narrow angle, Quiet Iris Round and reactive Round and reactive [...] - OU - Both Eyes Time Out 06/16/2023. 13:52. Confirmed correct patient, procedure, site, and patient [...] mL Route: intravitreal, Site: Right Eye NDC: 06832-809-51, Lot: [id number], Expiration date: 12/22/2023 Left Eye Preparation included 5% betadine to ocular surface, eyelid speculum. A 30 gauge needle was used. Injection: 2 mg aflibercept 2 mg/0.05 mL Route: intravitreal, Site: Left Eye NDC: 86649-106-70, Lot: [id number], Expiration date: 06/21/2024 Post-op Right Eye Post injection exam found [...] degeneration of both eyes with active choroidal neovascularization(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 Offer Eylea both eyes and continue every 7 weeks for right eye and 14 weeks for the left. Patient agrees Eylea injection done to both eyes today Obtain prior auth for Eylea HD Nuclear cataract both eyes Not visually significant but angles are becoming narrower Observe for now Return in about 7 weeks (around 08/04/2023) for oct, eylea. I am scribing for Dr. Marcial Magaña MD while he is personally performing the service. HENRIETTA Epperson (Scribe) documented in this encounter Plan of Treatment Upcoming Encounters Date Type Department Care Team (Late st Contact Info) Description 07/21/2024 11:00 EDT Office Visit [facility] Ophthalmology - [address] [phone] Marcial Magaña MD [address] [place] [address] 5 [place] [phone] 07/25/2024 11:00 EDT Phlebotomy Only [facility] Hematology & Oncology [address] [address] Blood Doctor, [facility] Hem Onc 07/25/2024 11:45 EDT Office Visit [facility] Hematology & Oncology [address] [address] Abebe Ralph MD [address] [place] [address], [facility] 2 [place] [phone] 07/25/2024 12:30 EDT Appointment [facility] Hematology & Oncology - [address] [phone] 01/03/2025 16:20 EDT Appointment [facility] Breast Imaging Mammography - [address] [phone] documented as of this encounter Procedures Procedure Name Priority Date/Time Associated Diagnosis Comments INTRAVITREAL INJECTION, PHARMACOLOGIC AGENT - OU - BOTH EYES Routine 06/16/2023 14:10 EDT Exudative age-related macular degeneration of both eyes with active choroidal neovascularization (HCC-CMS) OCT, RETINA - OU - BOTH EYES Routine 06/16/2023 13:54 EDT Exudative age-related macular degeneration of both eyes with active choroidal neovascularization ([facility]) documented in this encounter Results * INTRAVITREAL INJECTION, PHARMACOLOGIC AGENT - OU - BOTH EYES (06/16/2023 14:10 EDT) Narrative [facility] POINT OF CARE - 06/17/2023 13:29 EDT Time Out 06/16/2023. 13:52. Confirmed correct patient, procedure, site, and patient [...] mg/0.05 mL ??Route: intravitreal, Site: Right Eye ??[facility]: 40868-759-57, Lot: [id number], Expiration date: 12/22/2023 Left Eye Preparation included 5% betadine to ocular surface, eyelid speculum. A 30 gauge needle was used. Injection: 2 mg aflibercept 2 mg/0.05 mL ??Route: intravitreal, Site: Left Eye ??[facility]: 42333-303-32, Lot: [id number], Expiration date: 06/21/2024 Post-op Right Eye Post injection exam found [...] MD OPHTH CLINIC PROCEDURES Final Re sult [facility] POINT OF CARE * OCT, RETINA - OU - BOTH EYES (06/16/2023 13:54 EDT) Narrative [facility] OPHTHALMOLOGY - 06/17/2023 13:29 EDT Right Eye Quality was good. Scan locations included subfoveal. Progression has been stable. Findings include pigment epithelial detachment. Left Eye Quality was good. Scan locations included juxtafoveal. Progression has been stable. Findings include pigment epithelial detachment. Notes No fluid both eyes Marcial Magaña MD OPHTH TOMOGRAPHY Final Result [facility] OPHTHALMOLOGY documented in this encounter Visit Diagnoses Diagnosis Exudative age-related macular degeneration of both eyes with active choroidal neovascularization (HCC-CMS)- Primary Encounter for screening mammogram for malignant neoplasm of breast Other screening mammogram documented in this encounter Administered Medications Inactive Administered Medications - up to 3 most recent administrations Medication Order MAR Action Action Date Dose Rate Site aflibercept (EYLEA) intravitreal syringe 2 mg 2 mg, intravitreal, Starting on Thu06/16/23 at 1410, Until Thu06/17/23 at 1530, RoutineIndications:Exudative age-related macular degeneration of both eyes with active choroidal neovascularization (HCC-CMS) Given 06/16/2023 14:10 EDT 2 mg Right E ye aflibercept (EYLEA) intravitreal syringe 2 mg 2 mg, intravitreal, Starting on 06/16/23 at 1410, Until 06/17/23 at 1530, RoutineIndications:Exudative age-related macular degeneration of both eyes with active choroidal neovascularization (HCC-CMS) Given 06/16/2023 14:10 EDT 2 mg Left Ey e documented in this encounter Historical Medications * This list may reflect changes made after this encounter. aspirin chewable 81 mg tablet Take 1 Tablet by mouth daily. 01/05/2024 added in this encounter Eye Exam Visual Acuity (Snellen - Linear) Right eye Left eye Dist cc 20/25 20/25 +2 Correction: Glasses Tonometry (Applanation, 13:15) Right eye Left eye Pressure 10 10 Neuro/Psych Oriented x3: Yes Mood/Affect: Normal Dilation Both eyes: Tropicamide 1%, P henylephrine 2.5% @ 13:26 Slit Lamp Exam Right eye Left eye Lids/Lashes Normal Normal Conjunctiva/Sclera White and quiet White and renzo et Cornea Clear Clear Anterior Chamber Narrow angle, Quiet Narrow angl e, Quiet Iris Round and reactive Round and gerald [...] sions Attached without predisposing lesions Care Teams Package Clerk Relationship Specialty Start Date End Date Millie Hilton MD 4 [place] [address] PCP - General 01/03/22 Kimi Deleon MD [address] [place] [phone] 05/16/20 Hannah Batres NP [address] [place], [place] [address] 05/16/20 documented as of this encounter
--- OUTSIDE RECORDS SUMMARY | 2024-04-19 08:08 | XMS_ITS | Encounter Summary ---
Author Organization [facility] Address [address] [place] [address] Care Team Providers Care Screen Printing Inspector Name Role Phone Kimi Deleon MD Unavailable Hannah Batres NP Unavailable [phone] Millie Hilton MD Primary Care Provider [phone] Reason for Visit * Reason Onset Date Comments Appointment Related 11/30/2023 Encounter Details Date Type Department Care Team (Late st Contact Info) Description 11/30/2023 Telephone [facility] Cancer Center Hematology & Oncology - [facility] [address] [place] [address] Abebe Ralph MD 111 [facility] 2 [place] [address] Appointment Related Social History Tobacco [...] * Telephone Encounter - Feli Samaniego - 11/30/2023 1025 EDT Called patient regarding upcoming appt. Appt scheduled on 12/20 - arrival time @ 1130 for 1145 appt w/PK. Scheduled per PK. Patient confirmed. documented in this encounter Plan of Treatment Upcoming Encounters Date Type Department Care Team (Late st Contact Info) Description 07/21/2024 11:00 EDT Office Visit [facility] Ophthalmology [address] [phone] Marcial Magaña MD [address] [place] [address], Level 5 [place] [phone] 07/25/2024 11:00 EDT Phlebotomy Only [facility] Hematology & Oncology [address] 7560[address] Blood Doctor, [facility] Hem Onc 07/25/2024 11:45 EDT Office Visit [facility] Hematology & Oncology [address] [phone] Abebe Ralph MD 111 [facility], [facility], Level 2 [place] [phone] 07/25/2024 12:30 EDT Appointment [facility] Cancer Center Hematology & Oncology - [address] [address] 01/03/2025 16:20 EDT Appointment [facility] Breast Imaging Mammography - [address] 368[address] documented as of this encounter Visit Diagnoses Not on filedocumented in this encounter Care Teams Screen Printing Inspector Relationship Specialty Start Date End Date Millie Hilton MD 4 [place] [address] PCP - General 01/03/22 Kimi Deleon MD [address] [place] [address] 05/16/20 Hannah Batres NP [address] [place] [address] 05/16/20 documented as of this encounter
--- OUTSIDE RECORDS SUMMARY | 2024-04-19 08:08 | XMS_ITS | Encounter Summary ---
Author Organization [facility] Address [address] [place] [address] Care Team Providers Care Named Account Executive Name Role Phone Kimi Deleon MD Unavailable [phone] Hannah Batres NP Unavailable [phone] Millie Hilton MD Primary Care Provider [phone] Encounter Details Date Type Department Care Team (Latest Contact Info) Description 07/27/2023 9:00 EDT Phlebotomy Only [facility] Cancer Center Hematology & Oncology - [address] [address] Blood Doctor, [facility] Hem Onc Estrogen receptor positive status (ER+) (Primary Dx) Social History Tobacco Use Types [...] documented in this encounter Progress Notes * Bradnon Wilburn MA - 07/27/2023 0900 EDT Venipuncture performed for Kaufma n Per orders of Loree Number of attempts 1 left ac PC I was supervised by Britany who was present and immediately available in the office suite. BRANDON WILBURN MA 07/27/2023 9:11 documented in this encounter Plan of Treatment Upcoming Encounters Date Type Department Care Team (Late st Contact Info) Description 07/21/2024 11:00 EDT Office Visit [facility] Ophthalmology [address] [address] Marcial Magaña MD [address] [place] [address] 5 [place] [phone] 07/25/2024 11:00 EDT Phlebotomy Only [facility] Hematology & Oncology [address] [phone] Blood Doctor, [facility] Hem Onc 07/25/2024 11:45 EDT Office Visit [facility] Hematology & Oncology [address] [phone] Abebe Ralph MD [address] [place] [address], Level 2 [place] [phone] 07/25/2024 12:30 EDT Appointment [facility] Cancer Center Hematology & Oncology - [address] [phone] 01/03/2025 16:20 EDT Appointment [facility] Breast Imaging Mammography - [address] [phone] documented as of this encounter Procedures Procedure Name Priority Date/Time Associated Diagnosis Comments VITAMIN D (25,OH) Routine 07/27/2023 9:11 EDT Estrogen receptor positive status (ER+) documented in this encounter Results * VITAMIN D (25,OH) (07/27/2023 9:11 EDT) 25OH Vitamin D Tot 46 30 - 100 ng/mL 07/27/2023 13:23 EDT [facility] Comment: Vitamin D 25,OH Interpretive Ranges: Deficiency: ??<10.0 ng/mL Insufficiency: ??10.0 - 30.0 ng/mL Sufficiency: ??30.0 - 100.0 ng/mL Toxicity: ??>100.0 ng/mL Blood VENOUS BLOOD / Unknown Venipuncture / Unknown 07/27/2023 9:11 EDT 07/27/2023 9:16 EDT us Abebe Ralph MD CHEMISTRY & BLOOD GAS ORDERAB LES Final Result [facility] [address] [place], [place] [phone] documented in this encounter Visit Diagnoses Diagnosis Estrogen receptor positive status (ER+)- Primary Estrogen receptor positive status [ER+] Encounter for screening mammogram for malignant neoplasm of breast Other screening mammogram documented in this encounter Care Teams Named Account Executive Relationship Specialty Start Date End Date Millie Hilton MD 4 [place] [address] PCP - General 01/03/22 Kimi Deleon MD [address] [place] [phone] 05/16/20 Hannah Batres NP [address] [place] [address] 05/16/20 documented as of this encounter
--- OUTSIDE RECORDS SUMMARY | 2024-04-19 08:08 | XMS_ITS | Encounter Summary ---
Author Organization [facility] Address [address] [place] [address] Care Team Providers Care Strike On Machine Operator Name Role Phone Kimi Deleon MD Unavailable Hannah Batres NP Unavailable [phone] Millie Hilton MD Primary Care Provider [phone] Reason for Visit * Reason Comments Eye Problem Encounter Details Date Type Department Care Team (Late st Contact Info) Description 01/05/2024 10:30 EDT Office Visit [facility] Ophthalmology - [address] [address] Marcial Magaña MD [address] [facility], Level 5 [place] [address] Social History Tobacco Use Types [...] Progress Notes * Marcial Magaña MD - 01/05/2024 1030 EDT Chief Complaint Patient presents with Eye Problem HPI 12 Week F/U + Injection: Wet AMD w/CNVM Both Eyes, S/P: Eylea HD Both Eyes 10/13/2023 Drops: None Pt states no pain or pressure in the eyes. No new flashes or floaters. No vision changes Base Eye Exam Visual Acuity (Snellen - Linear) Right Left Dist sc 20/50 20/25 -2 Dist ph sc 20/40 -2 Tonometry (Applanation, 11:14) Right Left Pressure 12 17 Pupils Dark Light Shape React APD Right 4.5 3.5 Round Brisk None Left 4.5 3.5 Round Brisk None Neuro/Psych Oriented x3: Yes Mood/Affect: Normal Dilation Both eyes: Tropicamide 1%, Phenylephrine 2.5% @ 11:16 Slit Lamp and Fundus Exam Slit Lamp [...] - OU - Both Eyes Time Out 01/05/2024. 12:07. Confirmed correct patient, procedure, site, and patient [...] mL Route: intravitreal, Site: Right Eye NDC: 76740-878-01, Lot: [id number], Expiration date: 02/19/2025 Left Eye Preparation included 5% betadine to ocular surface, eyelid speculum. A 30 gauge needle was used. 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 I am scribing for Dr. Marcial Magaña MD while he is personally performing the service. Bennett Ott (Scribe) documented in this encounter Plan of Treatment Upcoming Encounters Date Type Department Care Team (Late st Contact Info) Description 07/21/2024 11:00 EDT Office Visit [facility] Ophthalmology - [address] [phone] Marcial Magaña MD [address] [place] [address] 5 [place] [phone] 07/25/2024 11:00 EDT Phlebotomy Only [facility] Hematology & Oncology - [address] [phone] Blood Doctor, [facility] Hem Onc 07/25/2024 11:45 EDT Office Visit [facility] Hematology & Oncology [address] [phone] Abebe Ralph MD [address] [place] [address], Level 2 [place] [phone] 07/25/2024 12:30 EDT Appointment [facility] Hematology & Oncology [address] [phone] 01/03/2025 16:20 EDT Appointment [facility] Breast Imaging Mammography - [address] [phone] documented as of this encounter Procedures Procedure Name Priority Date/Time Associated Diagnosis Comments INTRAVITREAL INJECTION, PHARMACOLOGIC AGENT - OU - BOTH EYES Routine 01/05/2024 12:08 EDT Exudative age-related macular degeneration of both eyes with active choroidal neovascularization ([facility]-CMS) OCT, RETINA - OU - BOTH EYES Routine 01/05/2024 11:50 EDT Exudative age-related macular degeneration of both eyes with active choroidal neovascularization (HCC-CMS) documented in this encounter Results * INTRAVITREAL INJECTION, PHARMACOLOGIC AGENT - OU - BOTH EYES (01/05/2024 12:08 EDT) Narrative [facility] POINT OF CARE - 01/06/2024 8:58 EDT Time Out 01/05/2024. 12:07. Confirmed correct patient, procedure, site, and patient [...] mg/0.07 mL ??Route: intravitreal, Site: Right Eye ??[facility]: 57272-115-63, Lot: [id number], Expiration date: 02/19/2025 Left Eye Preparation included 5% betadine to ocular surface, eyelid speculum. A 30 gauge needle was used. Injection: 8 mg aflibercept 8 mg/0.07 mL ??Route: intravitreal, Site: Left Eye ??[facility]: 89064-394-12, Lot: [id number], Expiration date: 02/19/2025 Post-op Right Eye Post injection exam found [...] [facility]/ZIP Co de Phone Number [facility] POINT OF CARE * OCT, RETINA - OU - BOTH EYES (01/05/2024 11:50 EDT) Narrative [facility] OPHTHALMOLOGY - 01/06/2024 8:58 EDT Right Eye Quality was good. Scan locations included subfoveal. Progression has been stable. Findings include pigment epithelial detachment. Left Eye Quality was good. Scan locations included juxtafoveal. Progression has been stable. Findings include pigment epithelial detachment. Notes No fluid both eyes Marcial Magaña MD OPHTH TOMOGRAPHY Final Result Performing Organization Address [facility] Co de Phone Number [facility] OPHTHALMOLOGY documented in this encounter [...] 8 mg 8 mg, intravitreal, Starting on Thu01/05/24 at 1208, Until Thu01/06/24 at 1059, RoutineIndications:Exudative age-related macular degeneration of both eyes with active choroidal neovascularization (HCC-CMS) Given 01/05/2024 12:08 EDT 8 mg Right E ye aflibercept (EYLEA HD) intravitreal solution 8 mg 8 mg, intravitreal, Starting on Thu01/05/24 at 1208, Until Thu01/06/24 at 1059, RoutineIndications:Exudative age-related macular degeneration of both eyes with active choroidal neovascularization (HCC-CMS) Given 01/05/2024 12:08 EDT 8 mg Left Ey e documented in this encounter Discontinued Medications Medication Sig Discontinue Reason Start Date End Da te aspirin chewable 81 mg tablet Take 1 Tablet by mouth daily. Therapy completed (will not send dc message to pharm) 01/05/2024 atorvastatin (LIPITOR) 20 mg tablet Take 1 Tablet by mouth daily. Therapy completed (will not send dc message to pharm) 06/23/2023 01/05/2024 cholecalciferol, Vitamin D3, 1,000 unit tablet Take 4,000 Units by mouth daily. Therapy completed (will not send dc message to pharm) 01/05/2024 citalopram (CELEXA) 10 mg tabletIndications:Lucy conner neoplasm of upper-outer quadrant of right breast in female, estrogen receptor positive (HCC-CMS) TAKE 1 TABLET BY MOUTH AT BEDTIME Therapy completed (will not send dc message to pharm) 02/28/2022 01/05/2024 documented as of this encounter Orders Medications Ordered That Trevor ht Not Have Been Administered Count Last Ordered Date First Ordered Date aflibercept (EYLEA HD) intra vitreal solution 8 mg 1 01/05/2024 documented in this encounter Eye Exam Visual Acuity (Snellen - Linear) Right eye Left eye Dist sc 20/50 20/25 -2 Dist ph sc 20/40 -2 Tonometry (Applanation, 11:14) Right eye Left eye Pressure 12 17 Pupils Dark Light Shape React APD Right eye 4.5 3.5 Round Brisk None Left eye 4.5 3.5 Round Brisk None Neuro/Psych Oriented x3: Yes Mood/Affect: Normal Dilation Both eyes: Tropicamide 1%, P henylephrine 2.5% @ 11:16 Slit Lamp Exam Right eye Left eye [...] sions Attached without predisposing lesions Care Teams Strike On Machine Operator Relationship Specialty Start Date End Date Millie Hilton MD [address] [place] [address] PCP - General 01/03/22 Kimi Deleon MD [address] [place] [address] 05/16/20 Hannah Batres NP [address] [place] [address] 05/16/20 documented as of this encounter
--- OUTSIDE RECORDS SUMMARY | 2024-04-19 08:08 | XMS_ITS | Referral Summary ---
Author Organization [facility] Address [address] [place] [address] Care Team Providers Care Bank Analyst Name Role Phone Kimi Deleon MD Unavailable Hannah Batres NP Unavailable [phone] Millie Hilton MD Primary Care Provider Encounters Date Type Department Care Team Description 04/12/2024 14:00 EST Office Visit [facility] Ophthalmology [address] [phone] Marcial Magaña MD 03/30/2024 14:20 EST Office Visit [facility] Hematology & Oncology [address] [phone] Xena Nieves, PA-C Malignant neoplasm of upper-outer quadrant of right breast in female, estrogen receptor positive (HCC-CMS) (Primary Dx); Other osteoporosis without current pathological fracture 03/03/2024 Telephone [facility] Hematology & Oncology [address] [phone] Abebe Ralph MD Appointment Related 01/25/2024 Telephone [facility] Hematology Oncology [address] [address] Abebe Ralph MD Appointment Related 01/25/2024 10:15 EST Office Visit [facility] Hematology & Oncology [address] [phone] Abebe Ralph MD Malignant neoplasm of upper-outer quadrant of right breast in female, estrogen receptor positive (HCC-CMS) (Primary Dx) 01/25/2024 9:45 EST Phlebotomy Only [facility] Hematology & Oncology [address] [phone] Blood Doctor, [facility] Hem Onc Malignant neoplasm of upper-outer quadrant of right breast in female, estrogen receptor positive (HCC-CMS); Estrogen receptor positive status (ER+); 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 01/25/2024 9:39 EST - 01/25/2024 23:59 EST Hospital Encounter [address] [phone] Age-related osteoporosis without current pathological fracture (Primary Dx); Estrogen receptor positive status (ER+); Other osteoporosis without current pathological fracture Discharge Disposition: Home or Self Care 01/18/2024 Orders Only [address] [phone] Tatianna Devine RN Malignant neoplasm of upper-outer quadrant of right breast in female, estrogen receptor positive (HCC-CMS) (Primary Dx); Estrogen receptor positive status (ER+); Other jail (current) drug therapy from Last 3 Months Allergies Active Allergy Reactions Criticality Noted Date [...] months. (started 12/16/[address] [facility]) Active Fish Oil-[place]-3 Fatty Acids 360-1,200 mg capsule 1360mg, 2 [...] all healthy. 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 ER positive, NE positive HER-2 negative. Histologic grade 2, margins: [...] pathological fractu re 04/06/2017 Overview (08/09/2019): a- Forteo. b- 08/2018 Spine T score -3.5. Considering Prolia. Personal history of other malignant neoplasm of skin 02/12/2009 Overview (02/12/2009): resolved Seborrheic keratoses 02/12/2009 Overview (12/21/2014): ICD10 Update Auto Replacement Resolved Problems Problem Noted Date Diagnosed Date Resolved Date Intermediate stage nonexudat jack age-related macular degeneration of left eye 03/01/2020 021 Immunizations Name Administration Dates Next Due Influenza Vaccine High Dose (FLUZONE HIGH DOSE) PF 0.7 ml IM (65 yrs+) 02/02/2019 Shingrix (Zoster Vaccine, Recombinant) IM 2018,02/08/2018 Social History Tobacco Use Types Packs/Day Years [...] Sexual Orientation Straight 09/10/2021 20 :11 EDT Last Filed Vital Signs Vital Sign Reading [...] Body Mass Index 25.31 01/25/2024 0949 EST Functional Status * Because of a physical, mental, or emotional condition, does this person have difficulty doing errands alone such as visiting a doctor's office or shopping? Answer Date of Assessment Author No 01/07/2018 8:37 EDT Mental Status * Because of a physical, mental, or emotional condition, does this person have serious difficulty concentrating, remembering, or making decisions? Answer Entry Date Author No 01/07/2018 8:37 EDT Plan of Treatment Upcoming Encounters Date Type Department Care Team (Late st Contact Info) Description 07/21/2024 11:00 EDT Office Visit [facility] Ophthalmology - [address] [phone] Marcial Magaña MD [address] [place] [address] [address] [place] [phone] 07/25/2024 11:00 EDT Phlebotomy Only [facility] Hematology & Oncology [address] [phone] Blood Doctor, [facility] Hem Onc 07/25/2024 11:45 EDT Office Visit [facility] Hematology & Oncology [address] [phone] Abebe Ralph MD [address] [place] [address], [address] [place] [phone] 07/25/2024 12:30 EDT Appointment [facility] Hematology & Oncology - [address] [phone] 01/03/2025 16:20 EDT Appointment [facility] Breast Imaging Mammography - [address] [phone] Procedures Procedure Name Priority Date/Time Associated Diagnosis [...] (HCC-CMS) Estrogen receptor positive status (ER+) 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: 11497-710-19, Lot: [id number], Expiration date: 03/22/2025 Left Eye Preparation included 5% betadine to ocular surface, eyelid speculum. A 30 gauge needle was used. Injection: 8 mg aflibercept 8 mg/0.07 mL ??Route: intravitreal, Site: Left Eye ??[facility]: 82786-329-08, Lot: [id number], Expiration date: 01/20/2025 Post-op Right Eye Post [...] PROCEDURES Final Re sult Performing Organization Address [facility] Co de Phone Number [facility] POINT [facility] * OCT, RETINA - OU - BOTH EYES (04/12/2024 14:44 EST) Narrative [facility] OPHTHALMOLOGY - 04/12/2024 16:03 EST Right Eye Quality was good. Scan locations included subfoveal. Progression has been stable. Findings include pigment epithelial detachment. Left Eye Quality was good. Scan locations included juxtafoveal. Progression has been stable. Findings include pigment epithelial detachment. Notes No fluid both eyes Marcial Magaña MD OPHTH TOMOGRAPHY Final Result [facility] OPHTHALMOLOGY * COMPREHENSIVE METABOLIC PANEL (ONCOLOGY USE ONLY-INC MG) (01/25/2024 9:46 EST) Sodium 139 136 - 145 mmol/L 01/25/2024 10:10 [facility] Potassium 4.5 3.5 - 5.0 mmol/L 01/25/2024 10:10 [facility] Chloride 107 96 - 110 mmol/L 01/25/2024 10:10 [facility] CO2 Total 26 22 - 32 mmol/L 01/25/2024 10:10 [facility] Glucose 99 70 - 99 mg/dl 01/25/2024 10:10 [facility] BUN 19 10 - 26 mg/dL 01/25/2024 10:10 [facility] Creatinine 0.71 0.52 - 1.04 mg/dL 01/25/2024 10:10 [facility] eGFR 89 >60 mL/min/1.7 3m2 01/25/2024 10:10 [facility] Total Protein 7.4 6.3 - 8.2 g/dL 01/25/2024 10:10 [facility] Albumin 4.6 3.4 - 4.9 g/dL 01/25/2024 10:10 [facility] Alkaline Phosphatase 45 38 - 126 U/L 01/25/2024 10:10 [facility] AST 25 15 - 46 U/L 01/25/2024 10:10 [facility] ALT 18 <35 U/L 01/25/2024 10:10 [facility] Bilirubin, Total 0.5 <1.4 mg/dL 01/25/20 10:10 [facility] Calcium 9.5 8.5 - 10.5 mg/dL 01/25/2024 10:10 [facility] Magnesium 2.2 1.7 - 2.8 mg/dL 01/25/2024 10:10 [facility] Albumin/Globulin Ratio 1.6 1.0 - 2.5 01/25/2024 10:10 [facility] Anion Gap 6 5 - 14 mmol/L 01/25/2024 10:10 [facility] Blood VENOUS BLOOD / Unknown Venipuncture / Unknown 01/25/2024 9:46 EST 01/25/2024 9:52 EST us Abebe Ralph MD CHEMISTRY & BLOOD GAS ORDERAB LES Final Result [facility] [address] [place] [address] * COMPLETE BLOOD COUNT AND DIFFERENTIAL (01/25/2024 9:46 EST) WBC 5.05 4.00 - 12.40 K/cmm 01/25/2024 10:07 [facility] RBC 4.24 3.86 - 5.04 M/cmm 01/25/2024 10:07 [facility] Hemoglobin 13.5 11.6 - 15.2 g/dL 01/25/2024 10:07 [facility] HCT 39.1 34.9 - 44.4 % 01/25/2024 10:07 [facility] MCV 92 81 - 98 fL 01/25/2024 10:07 [facility] MCH 31.8 26.7 - 33.3 pg 01/25/2024 10:07 [facility] MCHC 34.5 32.1 - 35.9 g/dL 01/25/2024 10:07 [facility] RDW-CV 13.5 <14.7 % 01/25/2024 10:07 [facility] RDW-SD 45.8 <50.4 fl 01/25/2024 10:07 [facility] PLT 232 141 - 377 K/cmm 01/25/2024 10:07 [facility] MPV 10.8 9.5 - 12.7 fL 01/25/2024 10:07 [facility] % Neutrophils 45.3 Not Indicated % 01/25/2024 10:07 [facility] % Lymphocytes 43.0 Not Indicated % 01/25/2024 10:07 [facility] % Monocytes 9.1 Not Indicated % 01/25/2024 10:07 [facility] % Eosinophils 2.0 Not Indicated % 01/25/2024 10:07 [facility] % Basophils 0.4 Not Indicated % 01/25/2024 10:07 [facility] % Immature Grans 0.2 Not Indicated % 01/25/2024 10:07 [facility] Absolute Neutrophils 2.29 2.20 - 8.85 K/cmm 01/25/2024 10:07 [facility] Absolute Lymphocytes 2.17 1.09 - 3.30 K/cmm 01/25/2024 10:07 [facility] Absolute Monocytes 0.46 0.10 - 0.80 K/cmm 01/25/2024 10:07 [facility] Absolute Eosinophils 0.10 0.03 - 0.61 K/cmm 01/25/2024 10:07 [facility] ABS Basophils 0.02 0.01 - 0.11 K/cmm 01/25/2024 10:07 [facility] Absolute Immature Grans 0.01 0.00 - 0.06 K/cmm 01/25/2024 10:07 [facility] Type of Differential: Auto 01/25/2024 10:07 [facility] Blood VENOUS BLOOD / Unknown Venipuncture / Unknown 01/25/2024 9:46 EST 01/25/2024 9:52 EST us Abebe Ralph MD PACKAGES & DNA PROBE ORDERABL ES Final Result [facility] [address] [place] [address] * PHOSPHORUS (01/25/2024 9:46 EST) Phosphorus 3.6 2.5 - 4.5 mg/dL 01/25/2024 11:15 [facility] Blood VENOUS BLOOD / Unknown Venipuncture / Unknown 01/25/2024 9:46 EST 01/25/2024 9:52 EST us Abebe Ralph MD CHEMISTRY & BLOOD GAS ORDERAB LES Final Result [facility] [address] [place] [address] * (ABNORMAL) LIPID PROFILE (INCLUDES CHOLESTEROL, TRIGLYCERIDES, HDL, LDL) (01/25/2024 9:46 EST) Cholesterol 228(H) <200 mg/dL 01/25/2024 10:10 [facility] Comment:Note that therapeuti c goals will differ between patients based on cardiac risk factors and current medical therapy. HDL 53 >=50 mg/dl 01/25/2024 10:10 [facility] Comment:Note that therapeuti c goals will differ between patients based on cardiac risk factors and current medical therapy. LDL, Calculated 157 <160 mg/dL 10:10 [facility] Comment:Note that therapeuti c goals will differ between patients based on cardiac risk factors and current medical therapy. Triglyceride 90 <=150 mg/dL 01/25/2024 10:10 [facility] Comment:Note that therapeuti c goals will differ between patients based on cardiac risk factors and current medical therapy. Chol/HDL Ratio 4.3 See Note 01/25/2024 10:10 [facility] Comment:No reference range h as been established for CHOL/HDL ratio. Non HDL Cholesterol 175(H) <160 mg/dL 01/25/2024 10:10 [facility] Comment:Note that therapeuti c goals will differ between patients based on cardiac risk factors and current medical therapy. 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
--- OUTSIDE RECORDS SUMMARY | 2024-04-19 08:09 | XMS_ITS | Encounter Summary ---
Author Organization [facility] Address [address] [place] [address] Care Team Providers Care General Technician Name Role Phone Kimi Deleon MD Unavailable Hannah Batres NP Unavailable [phone] Millie Hilton MD Primary Care Provider [phone] Reason for Visit * Reason Comments Follow-up Encounter Details Date Type Department Care Team (Late st Contact Info) Description 01/28/2023 11:45 EST Office Visit [facility] Cancer Center Hematology & Oncology - [address] [address] Abebe Ralph MD 111 [facility], [facility] [address] [place] [address] Estrogen receptor positive status (ER+) (Primary Dx); [...] Sign Reading Time Taken Comments Blood Pressure 159/70 01/28/2023 1115 EST Pulse 53 01/28/2023 1115 EST Temperature 35.6 ??C (96 ??F) 01/28/2023 1115 EST Respiratory Rate 16 01/28/2023 1115 EST Oxygen Saturation 98% 01/28/2023 1115 EST Inhaled Oxygen Concentration - - Weight 66.2 kg (146 lb) 01/28/2023 1115 EST Height - - Body Mass Index 24.8 08/04/2022 1348 EDT documented in this encounter Functional Status [...] Progress Notes * Abebe Ralph MD - 01/28/2023 1145 EST Subjective Jeffery Garvey is a 72 y.o. female, who returns in followup for treatment and management of her breast cancer, and other medical problems. Her past medical history, social history, and family history are unchanged from that noted in my prior notes, except as noted below. Problem list: ?? 1. 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 A. 1.8 cm cancer, 0/3 sentinel nodes, grade 2, ER/AK+, HER-2 negative (IHC = 0). LVI negative. Onco-DX = 16. B. S/B WL is/XRT, 12/09. C. Adjuvant tamoxifen, 12/09. 1. Severe ongoing vasomotor symptoms. 2. Celexa, ongoing. A. D/C'd. D. Adjuvant femara, 06/10. 1. Rx hold, 09/11. E. Adjuvant Arimidex, 10/11. ?? 2. Osteoporosis. A. Prior therapy with alendronate >> poor tolerance. B. 2-year course of Forteo, completed 09/08. C. Prolia, 12/09. ?? 3. Macular degeneration, wet. A. Ongoing treatment >> a flu percept. 4. DJD, right knee. A. S/p partial knee replacement, 10/11. HPI: Jeffery Garvey returns in follow-up, continuing on adjuvant Arimidex. She continues to have some moderate musculoskeletal symptoms at present. Please see our prior notes, however she feels thesehave continued more or less unchanged. What she describes now however is generalized sense of stiffness particularly involving her hands, in her legs below the knee, when she first awakens in the morning. This improves with activity. She previously had been having quite a bit of difficulty with lowback pain and this continues to be quite minimal at this time. She previously had noted fairly significant vasomotor symptoms, these had abated quite a bit however. Of the last 2 to 3 months however she now notes them to be quite a bit worse, which she is describing at this time as drenching night sweats awakening her approximately 1- 3X/night. She had been on a trial a few years ago of Celexa for hot flashes, she had felt she had not tolerated this ideally feeling that it affected her affect and negatively somewhat. She has had no signs or symptoms suggestive of recurrent disease, nor any other major interval health issues. ROS Except as noted above in the HPI, Jeffery Garveys full remaining 10 point review of systems, including constitutional, cardiac, pulmonary, GI, /ASSET PROTECTION DETECTIVE, neurologic, musculoskeletal, HEENT, psychiatric, and endocrine, and all remaining, is otherwise fully unremarkable. Family History Problem Relation Age of Onset ??? Arthritis Mother ??? Cancer Mother ??? Hypertension Mother ??? Breast Cancer Mother ??? Cancer Father ??? Cancer Sister ??? Macular Degeneration Sister ??? Breast Cancer Sister ??? Macular Degeneration Brother ??? Macular Degeneration Maternal Uncle ??? Glaucoma Neg Hx ??? Blindness Neg Hx ??? Retinal Detachment Neg Hx Current Outpatient Medications Medication Sig ??? acetaminophen (TYLENOL) 325 mg tablet Take by mouth as needed for Pain. ??? aflibercept (EYLEA) 2 mg/0.05 mL 0.05 mL by intravitreal route Once. ??? anastrozole (ARIMIDEX) 1 mg tablet TAKE 1 TABLET BY MOUTH DAILY ??? ANASTROZOLE ORAL Take by mouth. (Patient not taking: Reported on 08/04/2022) ??? calcium carbonate/vitamin D3 (CALCIUM 500 + D ORAL) Take 1 caplet by mouth 2 times daily. ??? cholecalciferol, Vitamin D3, 1,000 unit tablet Take 4,000 Units by mouth daily. (Patient not taking: Reported on 08/04/2022) ??? citalopram (CELEXA) 10 mg tablet TAKE 1 TABLET BY MOUTH AT BEDTIME (Patient not taking: Reported on 08/04/2022) ??? denosumab 60 mg/mL syringe syringe Inject 1 mL into the skin every 6 months. (started 12/16/18 at [facility]) ??? Fish Oil-[place]-3 Fatty Acids 360-1,200 mg capsule 1360mg, 2 caps by mouth daily ??? GLYCINE ORAL Take 1,500 mg by mouth at bedtime. ??? magnesium glycinate-mag oxide 120 mg magnesium capsule Take 240 mg by mouth 2 times daily. ??? Multivitamins with Minerals tablet tablet Take 1 Tablet by mouth daily. (contains calcium 25 mg, vitamin D 1000 iu) ??? vitamin B complex (B COMPLEX 1 ORAL) Take 1 caplet by mouth daily. Vitals: 01/28/23 1115 BP: (!) 159/70 Pulse: 53 Resp: 16 Temp: (!) 35.6 ??C (96 ??F) TempSrc: Skin SpO2: 98% Weight: 66.2 kg (146 lb) Wt Readings from Last 3 Encounters: 01/28/23 [...] disease. She has had no breast complaints. Labs were performed recently outside, and overall unremarkable. I will note Frannie was quite frustrated with some [id number] with our office in terms of whether to get her labs completed locally versus done here which we reviewed in some detail today and I apologized for her. There are couple of issues however. Firstly her vasomotor symptoms are quite a bit worse as noted above. We discussed in some detail options for this. She is hesitant about proceeding with any medications, however with the level of sleep disruption she has had for the last few months so I very much recommended toher proceeding with a trial of medication. Given prior experience with Celexa will proceed with a trial of Lexapro. She is willing to think about this as she came in to her appointment today quite unwilling to consider treatment, however I think after long discussion she definitely will consider this. We will proceed with ongoing treatment with Prolia. I will note going forward we will obtain labs here. She will be due for ongoing annual screening mammography next fall, as well. Finally we had a long discussion today about the risk/benefits of consideration of 10 years versus 5 years of adjuvant endocrine therapy. Current data demonstrate a small but statistically significant benefit with prolonged adjuvant endocrine therapy. While in her case the absolute risk reduction will be a small, this impact is in regards to curative therapy which we reviewed in some detail. Given her ongoing symptoms she understandably is concerned about continuing with beyond 5 years. We also discussed potentially proceeding with a breast cancer index assay which is a newer assay for which data continues to evolve but there is some data supporting its predictive value for extended adjuvant therapy and will consider this more in the future. She has had present about a year remaining to complete a least a 5-year course of endocrine treatment. I spent a total of 65 with minutes on the date of this [...] 07/21/2024 11:00 EDT Office Visit [facility] Ophthalmology - [address] [id number] Marcial Magaña MD [address] [place] [address] [address] [place] [phone] 07/25/2024 11:00 EDT Phlebotomy Only [facility] Hematology & Oncology - [address] [phone] Blood Doctor, [facility] Hem Onc 07/25/2024 11:45 EDT Office Visit [facility] Hematology & Oncology [address] [phone] Abebe Ralph MD [address] [place] [address], [facility] [address] [place] [phone] 07/25/2024 12:30 EDT Appointment [facility] Hematology & Oncology - [address] [phone] 01/03/2025 16:20 EDT Appointment [facility] Breast Imaging Mammography - [address] [id number] documented as of this encounter Visit Diagnoses Diagnosis Estrogen receptor positive status (ER+)- Primary Estrogen receptor positive status [ER+] Other osteoporosis without current pathological fracture Encounter for screening mammogram for malignant neoplasm of breast Other screening mammogram documented in this encounter Orders Appointment Requests Count Last Ordered Date Fi rst Ordered Date ONCBCN INJECTION APPOINTMENT REQUEST 1 08/2023 documented in this encounter Care Teams General Technician Relationship Specialty Start Date End Date Millie Hilton MD [address] [place] [address] PCP - General 01/03/22 Kimi Deleon MD [address] [place] [phone] 05/16/20 Hannah Batres NP [address] [place] [address] 05/16/20 documented as of this encounter
--- OUTSIDE RECORDS SUMMARY | 2024-04-19 08:09 | XMS_ITS | Encounter Summary ---
Author Organization [facility] Address [address] [place] [address] Care Team Providers Care Bleach Tester Name Role Phone Kimi Deleon MD Unavailable [phone] Hannah Batres NP Unavailable [phone] Millie Hilton MD Primary Care Provider [phone] Encounter Details Date Type Department Care Team (Latest Contact Info) Description 02/05/2022 11:15 EST Phlebotomy Only [facility] Cancer Center Hematology & Oncology - [address] [place] [address] [place] [address] Blood Doctor, [facility] Hem Onc Malignant neoplasm of upper-outer quadrant of right breast in female, estrogen receptor positive (HCC-CMS); Malignant neoplasm of upper-outer quadrant of right female breast, unspecified estrogen receptor status (HCC-CMS) Social History Tobacco Use Types Packs/Day Years [...] Progress Notes * Brandon Wilburn MA - 02/05/2022 1115 EST Venipuncture performed for Nieves Per orders of Loree Number of attempts 1 left ac PC I was supervised by Constantin who was present and immediately available in the office suite. BRANDON WILBURN MA 02/05/2022 11:19 documented in this encounter Plan of Treatment Upcoming Encounters Date Type Department Care Team (Late st Contact Info) Description 07/21/2024 11:00 EDT Office Visit [facility] Ophthalmology [address] [phone] Marcial Magaña MD [address] [place] [address], [address] [place] [phone] 07/25/2024 11:00 EDT Phlebotomy Only [facility] Hematology & Oncology [address] [id number] Blood Doctor, [facility] Hem Onc 07/25/2024 11:45 EDT Office Visit [facility] Hematology & Oncology [address] [phone] Abebe Ralph MD 111 [facility], [facility], Level [address] [place] [phone] 07/25/2024 12:30 EDT Appointment [facility] Cancer Center Hematology & Oncology - [address] [phone] 01/03/2025 16:20 EDT Appointment [facility] Breast Imaging Mammography - [address] [phone] documented as of this encounter Procedures Procedure Name Priority Date/Time Associated Diagnosis Comments COMPLETE BLOOD COUNT AND DIFFERENTIAL STAT 02/05/2022 11:18 EST Malignant neoplasm of upper-outer quadrant of right breast in female, estrogen receptor positive (HCC-CMS) PHOSPHORUS STAT 02/05/2022 11:18 EST Malignant neoplasm of upper-outer quadrant of right female breast, unspecified estrogen receptor status (HCC-CMS) MAGNESIUM Add-On 02/05/2022 11:18 EST Malignant neoplasm of upper-outer quadrant of right female breast, unspecified estrogen receptor status (HCC-CMS) COMPREHENSIVE METABOLIC PANEL (CMP) STAT 02/05/2022 11:18 EST Malignant neoplasm of upper-outer quadrant of right breast in female, estrogen receptor positive (HCC-CMS) documented in this encounter Results * MAGNESIUM (02/05/2022 11:18 EST) Magnesium 2.3 1.7 - 2.8 mg/dL 02/05/2022 12:58 EST [facility] Blood VENOUS BLOOD / Unknown Venipuncture / Unknown 02/05/2022 11:18 EST 02/05/2022 11:22 EST us Xena Nieves PA-C CHEMISTRY & BLOOD GAS ORD ERABLES Final Result [facility] [address] [place] [address] * PHOSPHORUS (02/05/2022 11:18 EST) Phosphorus 4.2 2.5 - 4.5 mg/dL 02/05/2022 11:41 [facility] Blood VENOUS BLOOD / Unknown Venipuncture / Unknown 02/05/2022 11:18 EST 02/05/2022 11:22 EST us Abebe Ralph MD CHEMISTRY & BLOOD GAS ORDERAB LES Final Result [facility] [address] [place] [address] * COMPREHENSIVE METABOLIC PANEL (CMP) (02/05/2022 11:18 EST) Sodium 139 136 - 145 mmol/L 02/05/2022 11:41 [facility] Potassium 4.5 3.5 - 5.0 mmol/L 02/05/2022 11:41 [facility] Chloride 101 96 - 110 mmol/L 02/05/2022 11:41 [facility] CO2 Total 29 22 - 32 mmol/L 02/05/2022 11:41 [facility] Glucose 100 70 - 100 mg/dL 02/05/2022 11:41 [facility] BUN 19 10 - 26 mg/dL 02/05/2022 11:41 [facility] Creatinine 0.71 0.52 - 1.04 mg/dL 02/05/2022 11:41 [facility] eGFR 90 >60 mL/min/1.7 3m2 02/05/2022 11:41 [facility] Total Protein 7.2 6.3 - 8.2 g/dL 02/05/2022 11:41 [facility] Albumin 4.5 3.4 - 4.9 g/dL 02/05/2022 11:41 [facility] Alkaline Phosphatase 57 38 - 126 U/L 02/05/2022 11:41 [facility] AST 25 15 - 46 U/L 02/05/2022 11:41 [facility] ALT 22 <35 U/L 02/05/2022 11:41 [facility] Bilirubin, Total 0.7 <1.4 mg/dL 02/06/20 11:41 [facility] Calcium 9.7 8.5 - 10.5 mg/dL 02/05/2022 11:41 [facility] Albumin/Globulin Ratio 1.7 1.0 - 2.5 02/05/2022 11:41 [facility] Anion Gap 9 5 - 14 02/05/2022 11:41 [facility] Blood VENOUS BLOOD / Unknown Venipuncture / Unknown 02/05/2022 11:18 EST 02/05/2022 11:22 EST us Abebe Ralph MD CHEMISTRY & BLOOD GAS ORDERAB LES Final Result Performing Organization Address City/State/[facility] Co de Phone Number [facility] [address] [place] [address] * COMPLETE BLOOD COUNT AND DIFFERENTIAL (02/05/2022 11:18 EST) WBC 5.24 4.00 - 12.40 K/cmm 02/05/2022 11:31 [facility] RBC 4.25 3.86 - 5.04 M/cmm 02/05/2022 11:31 [facility] Hemoglobin 12.9 11.6 - 15.2 gm/dL 02/05/2022 11:31 [facility] HCT 39.9 34.9 - 44.4 % 02/05/2022 11:31 [facility] MCV 94 81 - 98 fl 02/05/2022 11:31 [facility] MCH 30.4 26.7 - 33.3 pg 02/05/2022 11:31 [facility] MCHC 32.3 32.1 - 35.9 gm/dL 02/05/2022 11:31 [facility] RDW-CV 13.8 <14.7 % 02/05/2022 11:31 [facility] RDW-SD 47.5 <50.4 fl 02/05/2022 11:31 [facility] PLT 260 141 - 377 K/cmm 02/05/2022 11:31 [facility] MPV 10.9 9.5 - 12.7 fl 02/05/2022 11:31 [facility] % Neutrophils 50.0 % 02/05/2022 11:31 [facility] % Lymphocytes 36.8 % 02/05/2022 11:31 [facility] % Monocytes 10.9 % 02/05/2022 11:31 [facility] % Eosinophils 1.3 % 02/05/2022 11:31 [facility] % Basophils 0.8 % 02/05/2022 11:31 [facility] % Immature Grans 0.2 % 02/06/20 11:31 [facility] Absolute Neutrophils 2.62 2.20 - 8.85 K/cmm 02/05/2022 11:31 [facility] Absolute Lymphocytes 1.93 1.09 - 3.30 K/cmm 02/05/2022 11:31 [facility] Absolute Monocytes 0.57 0.10 - 0.80 K/cmm 02/05/2022 11:31 [facility] Absolute Eosinophils 0.07 0.03 - 0.61 K/cmm 02/05/2022 11:31 [facility] ABS Basophils 0.04 0.01 - 0.11 K/cmm 02/05/2022 11:31 [facility] Absolute Immature Grans 0.01 0.00 - 0.06 K/cmm 02/05/2022 11:31 [facility] Type of Differential: Auto 02/05/2022 11:31 [facility] Blood VENOUS BLOOD / Unknown Venipuncture / Unknown 02/05/2022 11:18 EST 02/05/2022 11:22 EST us Abebe Ralph MD PACKAGES & DNA PROBE ORDERABL ES Final Result [facility] [address] [place] [address] documented in this encounter Visit Diagnoses Diagnosis Malignant neoplasm of upper-outer quadrant of right female breast, unspecified estrogen receptor status ([facility]) Encounter for screening mammogram for malignant neoplasm of breast Other screening mammogram documented in this encounter Care Teams Bleach Tester Relationship Specialty Start Date End Date Millie Hitlon MD [address] [place] [address] PCP - General 01/03/22 iKmi Deleon MD [address] [place] [phone] 05/16/20 Hannah Batres NP [address] [place] [address] 05/16/20 documented as of this encounter
--- OUTSIDE RECORDS SUMMARY | 2024-04-19 08:09 | XMS_ITS | Encounter Summary ---
Author Organization [facility] Address [address] [place] [address] Care Team Providers Care Panel Installer Name Role Phone Kimi Deleon MD Unavailable Hannah Batres NP Unavailable [phone] Millie Hilton MD Primary Care Provider [phone] Reason for Visit * Reason Comments Follow-up * Prior Authorization (Routine) - Authorized Specialty Diagnoses / Procedures [facility] Referred To Contact Diagnoses Exudative age-related macular degeneration of both eyes with active choroidal neovascularization ([facility]) Procedures WY INJECT INTRAVITREAL PHARMCOLOGIC WY AFLIBERCEPT INJECTION WY BEVACIZUMAB INJECTION [address] [address] Phone: tel: fax: [address] [address] Phone: tel: fax: Referral ID Status Reason Start Date Expiration Date V isits Requested Visits Authorized [id number] Authorized 04/20/2022 04/20/2023 12 12 Encounter Details Date Type Department Care Team (Late st Contact Info) Description 05/30/2022 13:45 [place] [address] Marcial Magaña MD [address] [facility], Level 5 [place] [phone] Social History Tobacco Use Types Packs/Day Years [...] Progress Notes * Marcial Magaña MD - 05/30/2022 1345 EST Chief Complaint Patient presents with ??? Follow-up Comments Wet AMD both eyes s/p Eylea right eye (04/11/22). Pt has no ocular complaints today. No new floatersor flashes. No eye drop use. Feels vision is about the same HPI Location: Both eyes Pain: 0 - No pain Quality: Blurry Severity: Moderate Duration: Years Timing: Constant Lasts: Continuous Context: Wet AMD both eyes Modifying factors: S/p Eylea right eye 04/11/22 Associated Signs & Symptoms: No vision changes, no eye pain, no new flashes or floaters. Visual Fluctuations: None Attestation: Base Eye Exam Visual Acuity (Snellen - Linear) Right Left Dist sc 20/40 -2 20/25 +2 Dist ph sc 20/30 -2 Tonometry (Applanation, 14:34) Right Left Pressure 13 14 Neuro/Psych Oriented x3: Yes Mood/Affect: Normal Dilation Both eyes: Tropicamide 1%, Phenylephrine 2.5% @ 14:34 Slit Lamp and Fundus Exam Slit Lamp Exam Right Left Lids/Lashes Normal Normal Conjunctiva/Sclera White and quiet White and quiet Cornea Clear Clear Anterior Chamber Deep and quiet Deep and quiet Iris Round and reactive Round and reactive Lens mild NS mild NS Anterior Vitreous Vitreous syneresis Vitreous syneresis Fundus Exam Right Left Disc Normal Normal C/D Ratio 0.6 0.6 Macula intermediate and large drusen, PED inferior to fovea large drusen, RPE mottling Vessels Normal Normal Periphery Attached without predisposing lesions Attached without predisposing lesions Please refer to large retinal drawing. IMAGING: OCT, Retina - OU - Both Eyes Right Eye Quality was good. Scan locations included subfoveal. Progression has been stable. Findings include pigment epithelial detachment. Left Eye Quality was good. Scan locations included juxtafoveal. Progression has been stable. Findings include pigment epithelial detachment. Notes Rare SR cysts both eyes Intravitreal Injection, Pharmacologic Agent - OU - Both Eyes Time Out 05/30/2022. 16:36. Confirmed correct patient, procedure, site, and patient consented. Anesthesia Right Eye Topical anesthesia was used. Anesthetic medications included Proparacaine 0.5%, Tetracaine 0.5%. Left Eye Topical anesthesia was used. Anesthetic medications included Proparacaine 0.5%, Tetracaine 0.5%. Procedure Right Eye Preparation included eyelid speculum, 5% betadine to ocular surface. A 30 gauge needle was used. Injection: 2 mg aflibercept 2 mg/0.05 mL Route: intravitreal, Site: Right Eye [facility]: 51172-086-49, Lot: [id number], Expiration date: 02/20/2023 Left Eye Preparation included eyelid speculum, 5% betadine to ocular surface. A 30 gauge needle was used. Injection: 2 mg aflibercept 2 mg/0.05 mL Route: intravitreal, Site: Left Eye [facility]: 82155-259-95, Lot: [id number], Expiration date: 12/21/2022 Post-op Right Eye Post injection exam found [...] degeneration of both eyes with active choroidal neovascularization([facility]) ([facility]) OCT, RETINA - OU - BOTH EYES INTRAVITREAL INJECTION, PHARMACOLOGIC AGENT - OU - BOTH EYES aflibercept (EYLEA) intravitreal syringe 2 mg aflibercept (EYLEA) intravitreal syringe 2 mg 2. 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 Stable vision with rare SR cysts 7??weeks s/p Eylea??right eye and 14 weeks s/p Eylea left eye. Hadfluid and vision loss 8 weeks out right eye. Offer Eylea??both eyes??today and??continue every??7??weeks??for right eye??and 14??weeks for the left. Patient agrees ?? 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 I have reviewed the meds, allergies, and problem list. I performed my own HPI and reviewed the ROS. I personally completed the exam. The patient was instructed to call our office or go to emergency room if worse vision, worse symptoms, or new/other concerns arise. Marcial Magaña MD I am scribing for Dr. Marcial Magaña MD while he is personally performing the service. HENRIETTA Vu (Scribe) documented in this encounter Plan of Treatment Upcoming Encounters Date Type Department Care Team (Late st Contact Info) Description 07/21/2024 11:00 EDT Office Visit [facility] Ophthalmology - [address] [address] Marcial Magaña MD [address] [place] [address], [facility] 5 [place] [phone] 07/25/2024 11:00 EDT Phlebotomy Only [facility] Hematology & Oncology - [address] [address] Blood Doctor, [facility] Hem Onc 07/25/2024 11:45 EDT Office Visit [facility] Hematology & Oncology - [address] [phone] Abebe Ralph MD [address] [place] [address], Level 2 [place] [phone] 07/25/2024 12:30 EDT Appointment [facility] Hematology & Oncology - [address] [phone] 01/03/2025 16:20 EDT Appointment [facility] Breast Imaging Mammography - [address] [address] documented as of this encounter Procedures Procedure Name Priority Date/Time Associated Diagnosis Comments INTRAVITREAL INJECTION, PHARMACOLOGIC AGENT - OU - BOTH EYES Routine 05/30/2022 16:37 EST Exudative age-related macular degeneration of both eyes with active choroidal neovascularization ([facility]) OCT, RETINA - OU - BOTH EYES Routine 05/30/2022 16:33 EST Exudative age-related macular degeneration of both eyes with active choroidal neovascularization ([facility]) documented in this encounter Results * INTRAVITREAL INJECTION, PHARMACOLOGIC AGENT - OU - BOTH EYES (05/30/2022 16:37 EST) Narrative [facility] POINT [facility] CARE - 06/02/2022 17:50 EDT Time Out 05/30/2022. 16:36. Confirmed correct patient, procedure, site, and patient consented. Anesthesia Right Eye Topical anesthesia was used. Anesthetic medications included Proparacaine 0.5%, Tetracaine 0.5%. Left Eye Topical anesthesia was used. Anesthetic medications included Proparacaine 0.5%, Tetracaine 0.5%. Procedure Right Eye Preparation included eyelid speculum, 5% betadine to ocular surface. A 30 gauge needle was used. Injection: 2 mg aflibercept 2 mg/0.05 mL ??Route: intravitreal, Site: Right Eye ??[facility]: 10952-526-35, Lot: [id number], Expiration date: 02/20/2023 Left Eye Preparation included eyelid speculum, 5% betadine to ocular surface. A 30 gauge needle was used. Injection: 2 mg aflibercept 2 mg/0.05 mL ??Route: intravitreal, Site: Left Eye ??[facility]: 21807-454-06, Lot: [id number], Expiration date: 12/21/2022 Post-op Right Eye Post injection exam found [...] medications were not given. Marcial Magaña MD OPH CLINIC PROCEDURES Final Re sult [facility] * OCT, RETINA - OU - BOTH EYES (05/30/2022 16:33 EST) Narrative [facility] OPHTHALMOLOGY - 06/02/2022 17:50 EDT Right Eye Quality was good. Scan locations included subfoveal. Progression has been stable. Findings include pigment epithelial detachment. Left Eye Quality was good. Scan locations included juxtafoveal. Progression has been stable. Findings include pigment epithelial detachment. Notes Rare SR cysts both eyes Marcial Magaña MD OPHTH TOMOGRAPHY Final Result [facility] OPHTHALMOLOGY documented in this encounter Visit [...] 2 mg 2 mg, intravitreal, Starting on Thu05/30/22 at 1637, Until 06/02/22 at 1951, RoutineIndications:Exudative age-related macular degeneration of both eyes with active choroidal neovascularization ([facility]-CMS) Given 05/30/2022 16:37 EST 2 mg Right E ye aflibercept (EYLEA) intravitreal syringe 2 mg 2 mg, intravitreal, Starting on Thu05/30/22 at 1637, Until 06/02/22 at 1951, RoutineIndications:Exudative age-related macular degeneration of both eyes with active choroidal neovascularization (HCC-CMS) Given 05/30/2022 16:37 EST 2 mg Left Ey e documented in this encounter Orders Medications Ordered That Trevor ht Not Have Been Administered Count Last Ordered Date First Ordered Date aflibercept (EYLEA) intravit real syringe 2 mg 1 06/02/2022 documented in this encounter Eye Exam Visual Acuity (Snellen - Linear) Right eye Left eye Dist sc 20/40 -2 20/25 +2 Dist ph sc 20/30 -2 Tonometry (Applanation, 14:34) Right eye Left eye Pressure 13 14 Neuro/Psych Oriented x3: Yes Mood/Affect: Normal Dilation Both eyes: Tropicamide 1%, P henylephrine 2.5% @ 14:34 Slit Lamp Exam Right eye Left eye Lids/Lashes Normal Normal Conjunctiva/Sclera White and quiet White and renzo et Cornea Clear Clear Anterior Chamber Deep and quiet Deep and quiet Iris Round and reactive Round and gerald ctive Lens mild NS mild NS Anterior Vitreous Vitreous syneresis Vitreous sy neresis Fundus Exam Right eye Left eye Disc Normal Normal C/D Ratio 0.6 0.6 Macula intermediate and lar ge drusen, PED inferior to fovea large drusen, RPE mottling Vessels Normal Normal Periphery Attached without predisposing le sions Attached without predisposing lesions Care Teams Panel Installer Relationship Specialty Start Date End Date Millie Hilton MD [address] [place] [address] PCP - General 01/03/22 Kimi Deleon MD [address] [place] [phone] 05/16/20 Hannah Batres NP [address] [place], [place] [address] 05/16/20 documented as of this encounter
--- OUTSIDE RECORDS SUMMARY | 2024-04-19 08:09 | XMS_ITS | Encounter Summary ---
Author Organization [facility] Address [address] [place] [address] Care Team Providers Care Application Development Specialist Name Role Phone Kimi Deleon MD Unavailable [phone] Hannah Batres NP Unavailable [phone] Millie Hilton MD Primary Care Provider [phone] Reason for Visit * Reason Comments Eye Problem * Prior Authorization (Routine) - Authorized Specialty Diagnoses / Procedures [facility] Referred To Contact Diagnoses Exudative age-related macular degeneration of both eyes with active choroidal neovascularization ([facility]) Procedures SD INJECT INTRAVITREAL PHARMCOLOGIC SD AFLIBERCEPT INJECTION SD BEVACIZUMAB INJECTION [address] [address] Phone: tel: fax: [place] [address] Phone: tel: fax: Referral ID Status Reason Start Date Expiration Date V isits Requested Visits Authorized [id number] Authorized 04/20/2022 04/20/2023 12 12 Encounter Details Date Type Department Care Team (Late st Contact Info) Description 04/11/2022 10:30 [place] [address] Marcial Magaña MD [address] [facility], [address] [place] [phone] Social History Tobacco Use Types Packs/Day Years [...] Progress Notes * Marcial Magaña MD - 04/11/2022 1030 EST Chief Complaint Patient presents with ??? Eye Problem Comments Wet AMD both eyes s/p Eylea both eyes 02/21/22. No vision changes, no eye pain. No new flashes or floaters. No drops. HPI Location: Both eyes Pain: 0 - No pain Quality: Blurry Severity: Moderate Duration: Years Timing: Constant Lasts: Continuous Context: 7 week f/u Eylea. Wet AMD both eyes. NSC both eyes. Modifying factors: S/p Eylea both 02/21/22 Associated Signs & Symptoms: No vision changes, no eye pain, no new flashes or floaters. Visual Fluctuations: None Attestation: Base Eye Exam Visual Acuity (Snellen - Linear) Right Left Dist sc 20/30 -2 20/20 -2 Tonometry (Applanation, 10:49) Right Left Pressure 16 14 Neuro/Psych Oriented x3: Yes Mood/Affect: Normal Dilation Both eyes: Tropicamide 1%, Phenylephrine 2.5% @ 10:49 Slit Lamp and Fundus Exam Slit Lamp [...] include pigment epithelial detachment. Notes No fluid Intravitreal Injection, Pharmacologic Agent - OD - Right Eye Time Out 04/11/2022. 11:42. Confirmed correct patient, procedure, site, and patient consented. Anesthesia Topical anesthesia was used. Anesthetic medications included Proparacaine 0.5%, Tetracaine 0.5%. Procedure Preparation included 5% betadine to ocular surface, eyelid speculum. A 30 gauge needle was used. Injection: 2 mg aflibercept 2 mg/0.05 mL Route: intravitreal, Site: Right Eye [facility]: 78519-479-76, Lot: [id number], Expiration date: 01/09/2023 Post-op Post injection exam found visual acuity of at least counting fingers. The patient tolerated the procedure well. There were no complications. DIAGNOSES: 1. Exudative age-related macular degeneration of both eyes with active choroidal neovascularization([facility]) ([facility]) OCT, RETINA - OU - BOTH EYES INTRAVITREAL INJECTION, PHARMACOLOGIC AGENT - OD - RIGHT EYE aflibercept (EYLEA) intravitreal syringe 2 mg Assessment Wet age-related macular degeneration??both eyes?? Improved vision??with??resolution of SRF??7??weeks s/p Eylea??right eye. Had fluid and vision loss 8 weeks out. Stable 20/25 vision with??resolution of??SRF sliver superior to fovea??13??weeks S/P Eylea left eye. Offer Eylea??right eye??today and??continue every??7??weeks??for right eye??and 14??weeks for the left. Patient agrees ?? Nuclear??cataract both eyes Not visually significant Observe ?? Return 7 weeks, Eylea both eyes Consider Faricimab in the future I have reviewed the past medical, family, [...] he is personally performing the service. HENRIETTA Fong (Scribe) documented in this encounter Plan of Treatment Upcoming Encounters Date Type Department Care Team (Late st Contact Info) Description 07/21/2024 11:00 EDT Office Visit [facility] Ophthalmology - [address] [address] Marcial Magaña MD [address] [place] [address], [address] [place] [phone] 07/25/2024 11:00 EDT Phlebotomy Only [facility] Hematology & Oncology [address] [phone] Blood Doctor, [facility] Hem Onc 07/25/2024 11:45 EDT Office Visit [facility] Hematology & Oncology [address] [place] [address] Abebe Ralph MD [address] [facility], [facility], Level [address] [place] [phone] 07/25/2024 12:[address] [facility] Hematology & Oncology - [address] [phone] 01/03/2025 16:20 EDT Appointment [facility] Breast Imaging Mammography - [address] [address] documented as of this encounter Procedures Procedure Name Priority Date/Time Associated Diagnosis Comments INTRAVITREAL INJECTION, PHARMACOLOGIC AGENT - OD - RIGHT EYE Routine 04/11/2022 14:19 EST Exudative age-related macular degeneration of both eyes with active choroidal neovascularization ([facility]) OCT, RETINA - OU - BOTH EYES Routine 04/11/2022 11:29 EST Exudative age-related macular degeneration of both eyes with active choroidal neovascularization ([facility]) documented in this encounter Results * INTRAVITREAL INJECTION, PHARMACOLOGIC AGENT - OD - RIGHT EYE (04/11/2022 14:19 EST) Narrative [facility] POINT OF CARE - 04/11/2022 14:19 EST Time Out 04/11/2022. 11:42. Confirmed correct patient, procedure, site, and patient consented. Anesthesia Topical anesthesia was used. Anesthetic medications included Proparacaine 0.5%, Tetracaine 0.5%. Procedure Preparation included 5% betadine to ocular surface, eyelid speculum. A 30 gauge needle was used. Injection: 2 mg aflibercept 2 mg/0.05 mL ??Route: intravitreal, Site: Right Eye ??[facility]: 34997-271-79, Lot: [id number], Expiration date: 01/09/2023 Post-op Post injection exam found visual acuity of at least counting fingers. The patient tolerated the procedure well. There were no complications. Marcial Magaña MD OPHTH CLINIC PROCEDURES Final Re sult [facility] POINT OF CARE * OCT, RETINA - OU - BOTH EYES (04/11/2022 11:29 EST) Narrative [facility] OPHTHALMOLOGY - 04/11/2022 14:18 EST Right Eye Quality was good. Scan locations included juxtafoveal. Progression has been stable. Findings include pigment epithelial detachment. Left Eye Quality was good. Scan locations included subfoveal. Progression has been stable. Findings include pigment epithelial detachment. Notes No fluid Marcial Magaña MD OPHTH TOMOGRAPHY Final Result Performing Organization Address [facility]/ZIP Co de Phone Number [facility] OPHTHALMOLOGY documented in this encounter [...] 2 mg 2 mg, intravitreal, Starting on Thu04/11/22 at 1143, Until Thu04/11/22 at 1620, RoutineIndications:Exudative age-related macular degeneration of both eyes with active choroidal neovascularization ([facility]) Given 04/11/2022 11:43 EST 2 mg Right E ye documented in this encounter Orders Medications Ordered That Trevor ht Not Have Been Administered Count Last Ordered Date First Ordered Date aflibercept (EYLEA) intravit real syringe 2 mg 1 04/11/2022 documented in this encounter Eye Exam Visual Acuity (Snellen - Linear) Right eye Left eye Dist sc 20/30 -2 20/20 -2 Tonometry (Applanation, 10:49) Right eye Left eye Pressure 16 14 Neuro/Psych Oriented x3: Yes Mood/Affect: Normal Dilation Both eyes: Tropicamide 1%, P henylephrine 2.5% @ 10:49 Slit Lamp Exam Right eye Left eye [...] sions Attached without predisposing lesions Care Teams Application Development Specialist Relationship Specialty Start Date End Date Millie Hilton MD [address] [place] [address] PCP - General 01/03/22 Kimi Deleon MD [address] [place] [phone] 05/16/20 Hannah Batres NP [address] [place] [address] 05/16/20 documented as of this encounter
--- OUTSIDE RECORDS SUMMARY | 2024-04-19 08:09 | XMS_ITS | Encounter Summary ---
Author Organization [facility] Address [address] [place] [address] Care Team Providers Care Dogger Name Role Phone Kimi Deleon MD Unavailable [phone] Hannah Batres NP Unavailable [phone] Millie Hilton MD Primary Care Provider [phone] Reason for Visit * Reason Comments Injections * Episode Based Medications (Routine) - Authorized Specialty Diagnoses / Procedures [facility] Referred To Contact Diagnoses Estrogen receptor positive status (ER+) Other osteoporosis without current pathological fracture Abebe Ralph MD [address] [place] [address] [address] [place] [address] Phone: tel: fax: [facility] Hematology Oncology [address] [address] Phone: tel: fax: Referral ID Status Reason Start Date Expiration Date V isits Requested Visits Authorized [id number] Authorized 09/09/2021 01/24/2026 5 10 Encounter Details Date Type Department Care Team (Latest Contact Info) Description 01/28/2023 11:12 EST - 01/28/2023 23:59 EST Hospital Encounter [facility] Hematology & Oncology [address] [address] Estrogen receptor positive status (ER+) (Primary Dx); [...] skin every 6 months. (started 12/16/18 at [facility]) Fish Oil-Miller-3 Fatty Acids 360-1,200 mg capsule 1360mg, 2 [...] TABLET BY MOUTH DAILY 90 Tablet 3 06/02/2022 4 ANASTROZOLE ORAL Take by mouth. 4 cholecalciferol, Vitamin D3, 1,000 unit tablet [...] documented in this encounter Progress Notes * Annie Patton RN - 01/28/2023 1230 EST Denosumab Injection Note Patient presents for C5D1 of q6 month Denosumab (PROLIA) SQ. Seen by Dr. Ralph today, no concernsor questions. Reviewed lab results with patient Chemistry: Latest Reference Range & Units 01/23/23 00:00 Sodium, External mmol/L 140 (E) Potassium, External mmol/L 4.5 (E) Chloride, External mmol/L 105 (E) CO2, External mmol/L 27.0 (E) BUN, External mg/dL 17 (E) Creatinine, External mg/dL 0.9 (E) GFR, Calculated, External 67.08 (E) Glucose, Serum, External 74 - 106 mg/dL 108 ! (E) Calcium, External mg/dL 9.5 (E) CrCl 57.078, Calculated Ca 9.38. All parameters met. Reviewed dental history and verified that patient was taking calcium and vitamin D. Denosumab (PROLIA) 60 mg given in LEFT upper arm (see MAR). No complications. Bandaid applied. Educated patient on possibility of flu-like side effects. Patient verbalized understanding of side effects and knows to call with questions. I was supervised by Dr. Marte who was readily available in the office suite. ANNIE PATTON RN 01/28/2023 12:54 documented in this encounter Miscellaneous Notes * Addendum Note - Paula Orourke - 01/28/2023 1230 ESTEncounter addended by: Paula Orourke on: 01/29/2023 7:28 Actions taken: Charge Capture section accepted documented in this encounter Plan of Treatment Upcoming Encounters Date Type Department Care Team (Late st Contact Info) Description 07/21/2024 11:00 EDT Office Visit [facility] Ophthalmology - [address] [phone] Marcial Magaña MD [address] [place] [address], [facility] [address] [place] [phone] 07/25/2024 11:00 EDT Phlebotomy Only [facility] Hematology & Oncology [address] [address] Blood Doctor, [facility] Hem Onc 07/25/2024 11:45 EDT Office Visit [facility] Hematology & Oncology [address] [address] Abebe Ralph MD [address] [place] [address], Level [address] [place] [phone] 07/25/2024 12:30 EDT Appointment [facility] Hematology & Oncology [address] [address] 01/03/2025 16:20 EDT Appointment [facility] Breast Imaging Mammography - [address] [address] documented as of this encounter Visit Diagnoses [...] mg, subcutaneous, NOW X1, 1 dose, On Thu01/28/23 at 1245, RoutineIndications:Estrogen receptor positive status (ER+),Other osteoporosis without current pathological fracture Given 01/28/2023 12:49 EST 60 mg Left Arm documented in this encounter Orders Medications Ordered That Trevor ht Not Have Been Administered Count Last Ordered Date First Ordered Date denosumab (PROLIA) syringe 60 mg 1 01/29/20 Nursing Count Last Ordered Date First Orde red Date INFORMED CONSENT 1 01/28/2023 NURSING COMMUNICATION 1 01/28/2023 Appointment Requests Count Last Ordered Date Fi rst Ordered Date ONCBCN INJECTION APPOINTMENT REQUEST 1 10/2022 documented in this encounter Care Teams Dogger Relationship Specialty Start Date End Date Millie Hilton MD [address] [place] [address] PCP - General 01/03/22 Kimi Deleon MD [address] [place] [phone] 05/16/20 Hannah Batres NP [address] [place] [address] 05/16/20 documented as of this encounter
--- OUTSIDE RECORDS SUMMARY | 2024-04-19 08:09 | XMS_ITS | Encounter Summary ---
Author Organization [facility] Address [address] [place] [address] Care Team Providers Care Mechanical Commissioning Engineer Name Role Phone Kimi Deleon MD Unavailable [phone] Hannah Batres NP Unavailable [phone] Millie Hilton MD Primary Care Provider [phone] Encounter Details Date Type Department Care Team (Late st Contact Info) Description 02/17/2022 Documentation Visit [facility] Radiation Oncology - Main [place] [address] [place] [address] Kayleigh Calixto, CÉSAR Social History Tobacco Use Types Packs/Day Years [...] documented in this encounter Progress Notes * Kayleigh Calixto, RN - 02/17/2022 0953 EST Jeffery in for follow up with Dr. Sagastume. She is feeling well post knee surgery. She denies any breastconcerns at this time. She had a mammogram in July. documented in this encounter Plan of Treatment Upcoming Encounters Date Type Department Care Team (Late st Contact Info) Description 07/21/2024 11:00 EDT Office Visit [facility] Ophthalmology - [address] [phone] Marcial Magaña MD [address] [place] [address] [address] [place] [phone] 07/25/2024 11:00 EDT Phlebotomy Only [facility] Hematology & Oncology [address] [id number] Blood Doctor, [facility] Hem Onc 07/25/2024 11:45 EDT Office Visit [facility] Hematology & Oncology [address] [phone] Abebe Ralph MD [address] [place] [address], [facility] [address] [place] [phone] 07/25/2024 12:30 EDT Appointment [facility] Hematology & Oncology - [address] [address] 01/03/2025 16:20 EDT Appointment [facility] Breast Imaging Mammography - [address] [address] documented as of this encounter Visit Diagnoses Not on filedocumented in this encounter Care Teams Mechanical Commissioning Engineer Relationship Specialty Start Date End Date Millie Hilton MD [address] [place] [address] PCP - General 01/03/22 Kimi Deleon MD [address] [place] [address] 05/16/20 Hannah Batres NP [address] [place] [address] 05/16/20 documented as of this encounter
--- OUTSIDE RECORDS SUMMARY | 2024-04-19 08:09 | XMS_ITS | Encounter Summary ---
Author Organization [facility] Address [address] [place] [address] Care Team Providers Care Assistant Drafter Name Role Phone Kimi Deleon MD Unavailable [phone] Hannah Batres NP Unavailable [phone] Millie Hilton MD Primary Care Provider [phone] Encounter Details Date Type Department Care Team (Latest Contact Info) Description 08/04/2022 13:30 EDT Phlebotomy Only [facility] Hematology & Oncology - Main [place] [address] [place] [address] Blood Doctor, [facility] Hem Onc Malignant neoplasm of upper-outer quadrant of right female breast, unspecified estrogen receptor status (HCC-CMS); Malignant neoplasm of upper-outer quadrant of right breast in female, estrogen receptor positive (HCC-CMS) Social History Tobacco Use Types Packs/Day [...] documented in this encounter Progress Notes * Terry Fajardo MA - 08/04/2022 1330 EDT Venipuncture performed for Ralph Per orders of Loree Number of attempts 1 I was supervised by Andrey who was present and immediately available in the office suite. TERRY FAJARDO MA 08/04/2022 13:28 documented in this encounter Plan of Treatment Upcoming Encounters Date Type Department Care Team (Late st Contact Info) Description 07/21/2024 11:00 EDT Office Visit [facility] Ophthalmology [address] [phone] Marcial Magaña MD [address] [place] [address], [address] [place] [phone] 07/25/2024 11:00 EDT Phlebotomy Only [facility] Hematology & Oncology [address] [phone] Blood Doctor, [facility] Hem Onc 07/25/2024 11:45 EDT Office Visit [facility] Hematology & Oncology [address] [phone] Abebe Ralph MD [address] [facility], Level [address] [place] [phone] 07/25/2024 12:30 EDT Appointment [facility] Hematology & Oncology - [address] [phone] 01/03/2025 16:20 EDT Appointment [facility] Breast Imaging Mammography - [facility] [address] [place], [place] [address] documented as of this encounter Procedures Procedure Name Priority Date/Time Associated Diagnosis Comments COMPREHENSIVE METABOLIC PANEL (ONCOLOGY USE ONLY-INC MG) STAT 07/27/2023 9:11 EDT Malignant neoplasm of upper-outer quadrant of right female breast, unspecified estrogen receptor status (HCC-CMS) COMPLETE BLOOD COUNT AND DIFFERENTIAL STAT 07/27/2023 9:11 EDT Malignant neoplasm of upper-outer quadrant of right breast in female, estrogen receptor positive (HCC-CMS) PHOSPHORUS STAT 07/27/2023 9:11 EDT Malignant neoplasm of upper-outer quadrant of right female breast, unspecified estrogen receptor status (HCC-CMS) COMPREHENSIVE METABOLIC PANEL (ONCOLOGY USE ONLY-INC MG) STAT 08/04/2022 13:47 EDT Malignant neoplasm of upper-outer quadrant of right female breast, unspecified estrogen receptor status (HCC-CMS) COMPLETE BLOOD COUNT AND DIFFERENTIAL STAT 08/04/2022 13:47 EDT Malignant neoplasm of upper-outer quadrant of right breast in female, estrogen receptor positive (HCC-CMS) PHOSPHORUS STAT 08/04/2022 13:47 EDT Malignant neoplasm of upper-outer quadrant of right female breast, unspecified estrogen receptor status (HCC-CMS) documented in this encounter Results * PHOSPHORUS (07/27/2023 9:11 EDT) Phosphorus 3.6 2.5 - 4.5 mg/dL 07/27/2023 9:36 [facility] Blood VENOUS BLOOD / Unknown Venipuncture / Unknown 07/27/2023 9:11 EDT 07/27/2023 9:16 EDT us Abebe Ralph MD CHEMISTRY & BLOOD GAS ORDERAB LES Final Result [facility] [address] [place] [address] * COMPLETE BLOOD COUNT AND DIFFERENTIAL (07/27/2023 9:11 EDT) [facility] WBC 5.90 4.00 - 12.40 K/cmm 07/27/2023 9:26 [facility] RBC 4.08 3.86 - 5.04 M/cmm 07/27/2023 9:26 [facility] Hemoglobin 12.8 11.6 - 15.2 g/dL 07/27/2023 9:26 [facility] HCT 37.7 34.9 - 44.4 % 07/27/2023 9:26 [facility] MCV 92 81 - 98 fL 07/27/2023 9:26 [facility] MCH 31.4 26.7 - 33.3 pg 07/27/2023 9:26 [facility] MCHC 34.0 32.1 - 35.9 g/dL 07/27/2023 9:26 [facility] RDW-CV 13.0 <14.7 % 07/27/2023 9:26 [facility] RDW-SD 43.8 <50.4 fl 07/27/2023 9:26 [facility] PLT 227 141 - 377 K/cmm 07/27/2023 9:26 [facility] MPV 11.4 9.5 - 12.7 fL 07/27/2023 9:26 [facility] % Neutrophils 51.4 % 07/27/2023 9:26 [facility] % Lymphocytes 35.6 % 07/27/2023 9:26 [facility] % Monocytes 11.0 % 07/27/2023 9:26 [facility] % Eosinophils 1.5 % 07/27/2023 9:26 [facility] % Basophils 0.3 % 07/27/2023 9:26 [facility] % Immature Grans 0.2 % 07/27/19 9:26 [facility] Absolute Neutrophils 3.03 2.20 - 8.85 K/cmm 07/27/2023 9:26 [facility] Absolute Lymphocytes 2.10 1.09 - 3.30 K/cmm 07/27/2023 9:26 [facility] Absolute Monocytes 0.65 0.10 - 0.80 K/cmm 07/27/2023 9:26 [facility] Absolute Eosinophils 0.09 0.03 - 0.61 K/cmm 07/27/2023 9:26 [facility] ABS Basophils 0.02 0.01 - 0.11 K/cmm 07/27/2023 9:26 [facility] Absolute Immature Grans 0.01 0.00 - 0.06 K/cmm 07/27/2023 9:26 [facility] Type of Differential: Auto 07/27/2023 9:26 [facility] Blood VENOUS BLOOD / Unknown Venipuncture / Unknown 07/27/2023 9:11 EDT 07/27/2023 9:16 EDT us Abebe Ralph MD PACKAGES & DNA PROBE ORDERABL ES Final Result [facility] [address] [place] [address] * COMPREHENSIVE METABOLIC PANEL (ONCOLOGY USE ONLY-INC MG) (07/27/2023 9:11 EDT) Sodium 139 136 - 145 mmol/L 07/27/2023 9:36 [facility] Potassium 4.6 3.5 - 5.0 mmol/L 07/27/2023 9:36 [facility] Chloride 106 96 - 110 mmol/L 07/27/2023 9:36 [facility] CO2 Total 24 22 - 32 mmol/L 07/27/2023 9:36 [facility] Glucose 85 70 - 99 mg/dl 07/27/2023 9:36 [facility] BUN 20 10 - 26 mg/dL 07/27/2023 9:36 [facility] Creatinine 0.71 0.52 - 1.04 mg/dL 07/27/2023 9:36 [facility] eGFR 89 >60 mL/min/1.7 3m2 07/27/2023 9:36 [facility] Total Protein 6.7 6.3 - 8.2 g/dL 07/27/2023 9:36 [facility] Albumin 4.2 3.4 - 4.9 g/dL 07/27/2023 9:36 [facility] Alkaline Phosphatase 38 38 - 126 U/L 07/27/2023 9:36 [facility] AST 23 15 - 46 U/L 07/27/2023 9:36 [facility] ALT 19 <35 U/L 07/27/2023 9:36 [facility] Bilirubin, Total 0.6 <1.4 mg/dL 07/27/19 9:36 [facility] Calcium 9.5 8.5 - 10.5 mg/dL 07/27/2023 9:36 [facility] Magnesium 2.2 1.7 - 2.8 mg/dL 07/27/2023 9:36 [facility] Albumin/Globulin Ratio 1.7 1.0 - 2.5 07/27/2023 9:36 [facility] Anion Gap 9 5 - 14 mmol/L 07/27/2023 9:36 EDT [facility] Blood VENOUS BLOOD / Unknown Venipuncture / Unknown 07/27/2023 9:11 EDT 07/27/2023 9:16 EDT us Abebe Ralph MD CHEMISTRY & BLOOD GAS ORDERAB LES Final Result [facility] [address] [place] [address] * (ABNORMAL) COMPREHENSIVE METABOLIC PANEL (ONCOLOGY USE ONLY-INC MG) (08/04/2022 13:47 EDT) Sodium 138 136 - 145 mmol/L 08/04/2022 14:03 [facility] Potassium 4.7 3.5 - 5.0 mmol/L 08/04/2022 14:03 [facility] Chloride 109 96 - 110 mmol/L 08/04/2022 14:03 [facility] CO2 Total 20(L) 22 - 32 mmol/L 08/04/2022 14:03 [facility] Glucose 105(H) 70 - 100 mg/dl 08/04/2022 14:03 [facility] BUN 18 10 - 26 mg/dL 08/04/2022 14:03 [facility] Creatinine 0.75 0.52 - 1.04 mg/dL 08/04/2022 14:03 [facility] eGFR 84 >60 mL/min/1.7 3m2 08/04/2022 14:03 [facility] Total Protein 7.0 6.3 - 8.2 g/dL 08/04/2022 14:03 [facility] Albumin 4.4 3.4 - 4.9 g/dL 08/04/2022 14:03 [facility] Alkaline Phosphatase 42 38 - 126 U/L 08/04/2022 14:03 [facility] AST 31 15 - 46 U/L 08/04/2022 14:03 [facility] ALT 20 <35 U/L 08/04/2022 14:03 EDT [facility] Bilirubin, Total <0.5 <1.4 mg/dL 08/05/19 14:03 T [facility] Calcium 9.7 8.5 - 10.5 mg/dL 08/04/2022 14:03 EDT [facility] Magnesium 2.4 1.7 - 2.8 mg/dL 08/04/2022 14:03 T [facility] Albumin/Globulin Ratio 1.7 1.0 - 2.5 08/04/2022 14:03 T [facility] Anion Gap 9 5 - 14 mmol/L 08/04/2022 14:03 T [facility] Blood VENOUS BLOOD / Unknown Venipuncture / Unknown 08/04/2022 13:47 EDT 08/04/2022 13:48 EDT us Abebe Ralph MD CHEMISTRY & BLOOD GAS ORDERAB LES Final Result Performing Organization Address City/[facility] Co de Phone Number [facility] [address] [place] [address] * PHOSPHORUS (08/04/2022 13:47 EDT) Phosphorus 3.9 2.5 - 4.5 mg/dL 08/04/2022 14:03 EDT [facility] Blood VENOUS BLOOD / Unknown Venipuncture / Unknown 08/04/2022 13:47 EDT 08/04/2022 13:48 EDT us Abebe Ralph MD CHEMISTRY & BLOOD GAS ORDERAB LES Final Result Performing Organization Address City/[facility]/ZIP Co de Phone Number [facility] [address] [place] [address] * COMPLETE BLOOD COUNT AND DIFFERENTIAL (08/04/2022 13:47 EDT) WBC 5.88 4.00 - 12.40 K/cmm 08/04/2022 13:56 EDT [facility] RBC 4.15 3.86 - 5.04 M/cmm 08/04/2022 13:56 [facility] Hemoglobin 12.8 11.6 - 15.2 gm/dL 08/04/2022 13:56 [facility] HCT 38.1 34.9 - 44.4 % 08/04/2022 13:56 [facility] MCV 92 81 - 98 fl 08/04/2022 13:56 [facility] MCH 30.8 26.7 - 33.3 pg 08/04/2022 13:56 [facility] MCHC 33.6 32.1 - 35.9 gm/dL 08/04/2022 13:56 [facility] RDW-CV 13.2 <14.7 % 08/04/2022 13:56 [facility] RDW-SD 44.6 <50.4 fl 08/04/2022 13:56 [facility] PLT 238 141 - 377 K/cmm 08/04/2022 13:56 [facility] MPV 11.0 9.5 - 12.7 fl 08/04/2022 13:56 [facility] % Neutrophils 46.8 % 08/04/2022 13:56 [facility] % Lymphocytes 40.1 % 08/04/2022 13:56 [facility] % Monocytes 10.0 % 08/04/2022 13:56 [facility] % Eosinophils 2.2 % 08/04/2022 13:56 [facility] % Basophils 0.7 % 08/04/2022 13:56 [facility] % Immature Grans 0.2 % 08/05/19 13:56 [facility] Absolute Neutrophils 2.75 2.20 - 8.85 K/cmm 08/04/2022 13:56 [facility] Absolute Lymphocytes 2.36 1.09 - 3.30 K/cmm 08/04/2022 13:56 [facility] Absolute Monocytes 0.59 0.10 - 0.80 K/cm 08/04/2022 13:56 EDT [facility] Absolute Eosinophils 0.13 0.03 - 0.61 K/cm 08/04/2022 13:56 EDT [facility] ABS Basophils 0.04 0.01 - 0.11 K/[facility] 08/04/2022 13:56 EDT [facility] Absolute Immature Grans 0.01 0.00 - 0.06 K/[facility] 08/04/2022 13:56 EDT [facility] Type of Differential: Auto 08/04/2022 13:56 EDT [facility] Blood VENOUS BLOOD / Unknown Venipuncture / Unknown 08/04/2022 13:47 EDT 08/04/2022 13:48 EDT us Abebe Ralph MD PACKAGES & DNA PROBE ORDERABL ES Final Result [facility] [address] [place] [address] documented in this encounter Visit Diagnoses Diagnosis Malignant neoplasm of upper-outer quadrant of right female breast, unspecified estrogen receptor status ([facility]) Encounter for screening mammogram for malignant neoplasm of breast Other screening mammogram documented in this encounter Care Teams Assistant Drafter Relationship Specialty Start Date End Date Millie Hilton MD [address] [place] [address] PCP - General 01/03/22 Kimi Deleon MD [address] [place] [phone] 05/16/20 Hannah Batres NP [address] [place] [address] 05/16/20 documented as of this encounter
--- OUTSIDE RECORDS SUMMARY | 2024-04-19 08:09 | XMS_ITS | Encounter Summary ---
Author Organization [facility] Address [address] [place] [address] Care Team Providers Care Sales And Marketing Coordinator Name Role Phone Kimi Deleon MD Unavailable [phone] Hannah Batres NP Unavailable [phone] Millie Hilton MD Primary Care Provider [phone] Reason for Referral * Radiology Services (Routine/Next Available) - Authorization Not Required Specialty Diagnoses / Procedures Referred By Contac t Referred To Contact Diagnoses Malignant neoplasm of upper-outer quadrant of right breast in female, estrogen receptor positive (HCC-CMS) Malignant neoplasm of upper-outer quadrant of right female breast, unspecified estrogen receptor status (HCC-CMS) Encounter for screening mammogram for malignant neoplasm of breast Procedures MA BREAST SCREENING JOE BILATERAL Abebe Ralph MD Phone: tel: fax: [facility] Referral ID Status Reason Start Date Expiration Date Visits Requested Visits Authorized [id number] Authorization Not Required 05/27/2022 1 1 Reason for Visit * Radiology Services (Routine/Next Available) - Authorization Not Required Specialty Diagnoses / Procedures Referred By Contac t Referred To Contact Diagnoses Malignant neoplasm of upper-outer quadrant of right breast in female, estrogen receptor positive (HCC-CMS) Malignant neoplasm of upper-outer quadrant of right female breast, unspecified estrogen receptor status (HCC-CMS) Encounter for screening mammogram for malignant neoplasm of breast Procedures MA BREAST SCREENING JOE BILATERAL Abebe Ralph MD Phone: tel: fax: [facility] Referral ID Status Reason Start Date Expiration Date Visits Requested Visits Authorized [id number] Authorization Not Required 05/27/2022 1 1 Encounter Details Date Type Department Care Team (Latest Contact Info) Description 12/12/2022 13:46 EDT - 12/12/2022 23:59 EDT Hospital Encounter [facility] Breast Imaging Mammography - [address] [address] Malignant neoplasm of upper-outer quadrant of right breast in female, estrogen receptor positive (HCC-CMS); Malignant neoplasm of upper-outer quadrant of right female breast, unspecified estrogen receptor status (HCC-CMS); Encounter for screening mammogram for malignant neoplasm [...] skin every 6 months. (started 12/16/18 at [facility]) Fish Oil-Pelham-3 Fatty Acids 360-1,200 mg capsule 1360mg, 2 [...] 06/02/2022 4 ANASTROZOLE ORAL Take by mouth. 04/0 4 cholecalciferol, Vitamin D3, 1,000 unit tablet [...] Info) Description 07/21/2024 11:00 EDT Office Visit [facility] Ophthalmology - [address] [address] Marcial Magaña MD 111 [facility], Level [address] [place] [phone] 07/25/2024 11:00 EDT Phlebotomy Only [facility] Hematology & Oncology - [address] [phone] Blood Doctor, [facility] Hem Onc 07/25/2024 11:45 EDT Office Visit [facility] Hematology & Oncology [address] [phone] Abebe Ralph MD [address] [place] [address], [facility] [address] [place] [phone] 07/25/2024 12:30 EDT Appointment [facility] Hematology & Oncology [address] [id number] 01/03/2025 16:20 EDT Appointment [facility] Breast Imaging Mammography - [address] [phone] documented as of this encounter Procedures Procedure Name Priority Date/Time Associated Diagnosis Comments MA BREAST SCREENING JOE BILATERAL Routine 12/12/2022 14:22 EDT Malignant neoplasm of upper-outer quadrant of right breast in female, estrogen receptor positive (HCC-CMS) Malignant neoplasm of upper-outer quadrant of right female breast, unspecified estrogen receptor status (HCC-CMS) Encounter for screening mammogram for malignant neoplasm of breast documented in this encounter Results * MA BREAST SCREENING JOE BILATERAL (12/12/2022 14:22 EDT) Anatomical Region Laterality Modality Breast Bilateral Mammography 12/15/2022 12:0 2 EDT Impressions 12/15/2022 12:02 EDT Benign, no evidence of malignancy. RECOMMENDATION: Routine screening mammography is recommended. OVERALL ASSESSMENT: BI-RADS 2: Benign These results will be communicated to your patient via a lay letter from Radiology. If any additional imaging is needed we will contact your patient directly. I have personally reviewed the images and the above interpretation and agree with the findings. [id number] Narrative 12/15/2022 12:02 EDT MA BREAST SCREENING JOE BILATERAL ??12/12/2022 2:30 PM History: breast cancer, routine screening.;C50.411:Malignant neoplasm of upper- outer quadrant of right breast in female, estrogen receptor positive (HCC-CMS);Z17.0:Malignant neoplasm of upper-outer quadrant of right breast in female, estrogen receptor positive (HCC-CMS);C50.411:Malignant neoplasm of upper-outer quadrant of right female breast, unspecified estrogen receptor status (HCC-CMS);Z12.31:Encounter Comparison: ??Comparison has been made to previous images . ? Technique: Routine 3D tomosynthesis with synthesized 2D views with CAD Breast Composition: There are scattered areas of fibroglandular density. Bilateral Breast Findings: ??No significant masses, calcifications or other abnormalities are seen. Prior lumpectomy in the upper outer quadrant of the right breast with surgical clips, unchanged. Procedure Note Julisa Fletcher MD MPH - 12/15/2022 MA BREAST SCREENING JOE BILATERAL 12/12/2022 2:30 PM History: breast cancer, routine screening.;C50.411:Malignant neoplasm ofupper- outer quadrant of right breast in female, estrogen receptor positive(HCC-CMS);Z17.0:Malignant neoplasm of upper-outer quadrant of right breastin female, estrogen receptor positive (HCC-CMS);C50.411:Malignant neoplasmof upper- outer quadrant of right female breast, unspecified estrogenreceptor status (HCC-CMS);Z12.31:Encounter Comparison: Comparison has been made to previous images . Technique: Routine 3D tomosynthesis with synthesized 2D views with CAD Breast Composition: There are scattered areas of fibroglandular density. Bilateral Breast Findings: No significant masses, calcifications or otherabnormalities are seen. Prior lumpectomy in the upper outer quadrant ofthe right breast with surgical clips, unchanged. IMPRESSION Benign, no evidence of malignancy. RECOMMENDATION: Routine screening mammography is recommended. OVERALL ASSESSMENT: BI-RADS 2: Benign These results will be communicated to your patient via a lay letter fromRadiology. If any additional imaging is needed we will contact yourpatient directly. I have personally reviewed the images and the above interpretation andagree with the findings. [id number] us Abebe Ralph MD IMG MAMMOGRAPHY ORDERABLES Fi nal Result documented in this encounter Visit Diagnoses Diagnosis Malignant neoplasm of upper-outer quadrant of right female breast, unspecified estrogen receptor status ([facility]) Encounter for screening mammogram for malignant neoplasm of breast Other screening mammogram Encounter for screening mammogram for malignant neoplasm of breast Other screening mammogram documented in this encounter Care Teams Sales And Marketing Coordinator Relationship Specialty Start Date End Date Millie Hilton MD [address] [place] [address] PCP - General 01/03/22 Kimi Deleon MD [address] [place] [phone] 05/16/20 Hannah Batres NP [address] [place] [address] 05/16/20 documented as of this encounter
--- OUTSIDE RECORDS SUMMARY | 2024-04-19 08:09 | XMS_ITS | Encounter Summary ---
Author Organization [facility] Address [address] [place] [address] Care Team Providers Care Accounting Manager Name Role Phone Kimi Deleon MD Unavailable Hannah Batres NP Unavailable [phone] Millie Hilton MD Primary Care Provider [phone] Reason for Visit * Reason Comments Macular Degeneration F/u on Wet AMD of b oth eyes s/p Eylea both 05/30/22. Encounter Details Date Type Department Care Team (Late st Contact Info) Description 07/18/2022 13:30 EDT Office Visit [facility] Ophthalmology - [address] [address] Marcial Magaña MD [address] [facility], [address] [place] [address] Social History Tobacco Use Types [...] Progress Notes * Marcial Magaña MD - 07/18/2022 1330 EDT Chief Complaint Patient presents with ??? Macular Degeneration F/u on Wet AMD of both eyes s/p Eylea both 05/30/22. Comments Macular Degeneration Additional comments: F/u on Wet AMD of both eyes s/p Eylea both 05/30/22. HPI Location: Both eyes Pain: 0 - No pain Quality: Blurry Severity: Moderate Duration: Years Timing: Constant Lasts: Continuous Context: Wet AMD both eyes, here today for right eye Eylea injection. Modifying factors: F/u on Wet AMD of both eyes s/p Eylea both 05/30/22. Associated Signs & Symptoms: VA stable per pt. No pain. No new F and F. No new distortions. Visual Fluctuations: None Attestation: Base Eye Exam Visual Acuity (Snellen - Linear) Right Left Dist sc 20/30 -2 20/25 +2 Dist ph sc 20/30 Tonometry (Applanation, 13:59) Right Left Pressure 17 17 Pupils Pupils APD Right PERRL - Left PERRL - Neuro/Psych Oriented x3: Yes Mood/Affect: Normal Dilation Both eyes: Tropicamide 1% @ 13:59 Slit Lamp and Fundus Exam Slit Lamp [...] has been stable. Findings include pigment epithelial detachment, subretinal fluid. Left Eye Quality was good. Scan locations included juxtafoveal. Progression has been stable. Findings include pigment epithelial detachment. Notes Rare SR cysts right Intravitreal Injection, Pharmacologic Agent - OD - Right Eye Time Out 07/18/2022. 14:33. Confirmed correct patient, procedure, site, and patient consented. Anesthesia Topical anesthesia was used. Anesthetic medications included Proparacaine 0.5%, Tetracaine 0.5%. Procedure Preparation included 5% betadine to ocular surface, eyelid speculum. A 30 gauge needle was used. Injection: 2 mg aflibercept 2 mg/0.05 mL Route: intravitreal, Site: Right Eye [facility]: 03481-913-96, Lot: [id number], Expiration date: 02/20/2023 Post-op Post injection exam found visual acuity of at least counting fingers. The patient tolerated the procedure well. There were no complications. Post injection medications were not given. Notes DIAGNOSES: 1. Exudative age-related macular degeneration of both eyes with active choroidal neovascularization([facility]) ([facility]) OCT, RETINA - OU - BOTH EYES INTRAVITREAL INJECTION, PHARMACOLOGIC AGENT - OD - RIGHT EYE aflibercept (EYLEA) intravitreal syringe 2 mg Assessment Assessment Wet age-related macular degeneration??both eyes?? Stable vision with rare SR cysts 7??weeks s/p Eylea??both eyes Had fluid and vision loss 8 weeks out right eye. Offer Eylea??right eye and??continue every??7??weeks??for right eye??and 14??weeks for the left. Patient agrees ??Eylea injection done to right eye today Nuclear??cataract both eyes Not visually significant Observe ?? Return 7 weeks Eylea both eyes and 14 weeks for Eylea right eye, OCT or sooner PRN I have reviewed the past medical, family, [...] while he is personally performing the service. GUS Gautam (scribe) documented in this encounter Plan of Treatment Upcoming Encounters Date Type Department Care Team (Late st Contact Info) Description 07/21/2024 11:00 EDT Office Visit [facility] Ophthalmology - [address] [id number] Marcial Magaña MD [address] [place] [address], [facility] [address] [place] [phone] 07/25/2024 11:00 EDT Phlebotomy Only [facility] Hematology & Oncology - [address] [phone] Blood Doctor, [facility] Hem Onc 07/25/2024 11:45 EDT Office Visit [facility] Hematology & Oncology [address] [phone] Abebe Ralph MD [address] [place] [address], [address] [place] [phone] 07/25/2024 12:30 EDT Appointment [facility] Hematology & Oncology [address] [address]331 01/03/2025 16:20 EDT Appointment [facility] Breast Imaging Mammography - [address] [address] documented as of this encounter Procedures Procedure Name Priority Date/Time Associated Diagnosis Comments INTRAVITREAL INJECTION, PHARMACOLOGIC AGENT - OD - RIGHT EYE Routine 07/18/2022 14:39 EDT Exudative age-related macular degeneration of both eyes with active choroidal neovascularization (HCC-CMS) OCT, RETINA - OU - BOTH EYES Routine 07/18/2022 14:22 EDT Exudative age-related macular degeneration of both eyes with active choroidal neovascularization (HCC-CMS) documented in this encounter Results * INTRAVITREAL INJECTION, PHARMACOLOGIC AGENT - OD - RIGHT EYE (07/18/2022 14:39 EDT) Narrative [facility] POINT OF CARE - 07/18/2022 14:42 EDT Time Out 07/18/2022. 14:33. Confirmed correct patient, procedure, site, and patient consented. Anesthesia Topical anesthesia was used. Anesthetic medications included Proparacaine 0.5%, Tetracaine 0.5%. Procedure Preparation included 5% betadine to ocular surface, eyelid speculum. A 30 gauge needle was used. Injection: 2 mg aflibercept 2 mg/0.05 mL ??Route: intravitreal, Site: Right Eye ??[facility]: 63296-712-88, Lot: [id number], Expiration date: 02/20/2023 Post-op Post injection exam found visual acuity of at least counting fingers. The patient tolerated the procedure well. There were no complications. Post injection medications were not given. Notes us Marcial Magaña MD OPHTH CLINIC PROCEDURES Final Re sult [facility] POINT OF CARE * OCT, RETINA - OU - BOTH EYES (07/18/2022 14:22 EDT) Narrative [facility] OPHTHALMOLOGY - 07/18/2022 14:22 EDT Right Eye Quality was good. Scan locations included subfoveal. Progression has been stable. Findings include pigment epithelial detachment, subretinal fluid. Left Eye Quality was good. Scan locations included juxtafoveal. Progression has been stable. Findings include pigment epithelial detachment. Notes Rare SR cysts right Marcial Magaña MD OPHTH TOMOGRAPHY Final Result [facility] [...] 2 mg 2 mg, intravitreal, Starting on Thu07/18/22 at 1439, Until Thu07/18/22 at 1642, RoutineIndications:Exudative age-related macular degeneration of both eyes with active choroidal neovascularization (HCC-CMS) Given 07/18/2022 14:39 EDT 2 mg Right E ye documented in this encounter Orders Medications Ordered That Trevor ht Not Have Been Administered Count Last Ordered Date First Ordered Date aflibercept (EYLEA) intravit real syringe 2 mg 1 07/18/2022 documented in this encounter Eye Exam Visual Acuity (Snellen - Linear) Right eye Left eye Dist sc 20/30 -2 20/25 +2 Dist ph sc 20/30 Tonometry (Applanation, 13:59) Right eye Left eye Pressure 17 17 Pupils Pupils APD Right eye PERRL - Left eye PERRL - Neuro/Psych Oriented x3: Yes Mood/Affect: Normal Dilation Both eyes: Tropicamide 1% @ 13:59 Slit Lamp Exam Right eye Left eye [...] sions Attached without predisposing lesions Care Teams Accounting Manager Relationship Specialty Start Date End Date Millie Hilton MD [address] [place] [address] PCP - General 01/03/22 Kimi Deleon MD [address] [place] [address] 05/16/20 Hannah Batres NP [address] [place] [address] 05/16/20 documented as of this encounter
--- OUTSIDE RECORDS SUMMARY | 2024-04-19 08:09 | XMS_ITS | Encounter Summary ---
Author Organization [facility] Address [address] [place] [address] Care Team Providers Care Supervisor Cell Efficiency Name Role Phone Kimi Deloen MD Unavailable [phone] Hannah Batres NP Unavailable [phone] Millie Hilton MD Primary Care Provider [phone] Reason for Referral * Radiology Services (Routine/Next Available) - Authorization Not Required Specialty Diagnoses / Procedures Referred By [facility] Referred To Contact Diagnoses Malignant neoplasm of upper-outer quadrant of right breast in female, estrogen receptor positive (HCC-CMS) Malignant neoplasm of upper-outer quadrant of right female breast, unspecified estrogen receptor status (HCC-CMS) Encounter for screening mammogram for malignant neoplasm of breast Procedures MA BREAST SCREENING JOE BILATERAL Abebe Ralph MD Phone: tel: fax: [facility] Referral ID Status Reason Start Date Expiration Date Visits Requested Visits Authorized [id number] Authorization Not Required 05/27/2022 1 1 Encounter Details Date Type Department Care Team (Late st Contact Info) Description 05/27/2022 Orders Only [facility] Cancer Center Hematology & Oncology - [facility] [address] [place] [address] Maddie Bobby, RN Malignant neoplasm of upper-outer quadrant of right breast in female, estrogen receptor positive (HCC-CMS) (Primary Dx); Malignant neoplasm of upper-outer quadrant of right female breast, unspecified estrogen receptor status (HCC-CMS); Encounter for screening mammogram for malignant neoplasm of breast ; Malignant neoplasm of upper-outer quadrant of right [...] documented in this encounter Progress Notes * Maddie Bobby RN - 05/27/2022 1221 EST mammo screening order placed for August 2022. documented in this encounter Plan of Treatment Upcoming Encounters Date Type Department Care Team (Late st Contact Info) Description 07/21/2024 11:00 EDT Office Visit [facility] Ophthalmology - [address] [phone] Marcial Magaña MD [address] [place] [address], [facility] [address] [place] [phone] 07/25/2024 11:00 EDT Phlebotomy Only [facility] Hematology & Oncology - [address] [phone] Blood Doctor, [facility] Hem Onc 07/25/2024 11:45 EDT Office Visit [facility] Hematology & Oncology [address] [phone] Abebe Ralph MD [address] [place] [address], [facility] [address] [place] [phone] 07/25/2024 12:30 EDT Appointment [facility] Hematology & Oncology [address] [phone] 01/03/2025 16:20 EDT Appointment [facility] Breast Imaging Mammography - [address] [phone] documented as of this encounter Results * MA BREAST SCREENING [...] above interpretation and agree with the findings. [id number] Narrative 12/15/2022 12:02 EDT MA BREAST SCREENING [...] Note Julisa Fletcher MD MPH - 12/15/2022 MD BREAST SCREENING JOE BILATERAL 12/12/2022 2:30 PM [...] the above interpretation andagree with the findings. [id number] Abebe Ralph MD IMG MAMMOGRAPHY ORDERABLES Fi nal Result documented in this encounter Visit Diagnoses Diagnosis Malignant neoplasm of upper-outer quadrant of right female breast, unspecified estrogen receptor status ([facility]) Encounter for screening mammogram for malignant neoplasm of breast Other screening mammogram Malignant neoplasm of upper-outer quadrant of right female breast, unspecified estrogen receptor status ([facility]) Encounter for screening mammogram for malignant neoplasm of breast Other screening mammogram Encounter for screening mammogram for malignant neoplasm of breast Other screening mammogram documented in this encounter Care Teams Supervisor Cell Efficiency Relationship Specialty Start Date End Date Millie Hilton MD [address] [place] [address] PCP - General 01/03/22 Kimi Deleon MD [address] [place] [address] 05/16/20 Hannah Batres NP [address] [place] [address] 05/16/20 documented as of this encounter
--- OUTSIDE RECORDS SUMMARY | 2024-04-19 08:09 | XMS_ITS | Encounter Summary ---
Author Organization [facility] Address [address] [place] [address] Care Team Providers Care Roads And Parking Lots Sweeper Operator Name Role Phone Kimi Deleon MD Unavailable [phone] Hannah Batres NP Unavailable [phone] Millie Hilton MD Primary Care Provider [phone] Reason for Visit * Reason Comments Eye Problem Encounter Details Date Type Department Care Team (Late st Contact Info) Description 02/21/2022 13:30 EST Office Visit [facility] Ophthalmology - [address] [address] Marcial Magaña MD [address] [facility], [address] [place] [address] Social History Tobacco Use Types [...] Progress Notes * Marcial Magaña MD - 02/21/2022 1330 EST Chief Complaint Patient presents with ??? Eye Problem Comments 7 week f/u Eylea. Wet AMD both eyes. S/p Eylea both 11/15/21, right 01/03/22. NSC both eyes. Vision seems the same. No pain, flashes, or floaters. No drops. HPI Location: Both eyes Pain: 0 - No pain Quality: Blurry Severity: Moderate Duration: Years Timing: Constant Lasts: Continuous Context: 7 week f/u Eylea. Wet AMD both eyes. NSC both eyes. Modifying factors: S/p Eylea both 11/15/21, right 01/03/22. Associated Signs & Symptoms: Vision seems the same. No pain, flashes, or floaters. Visual Fluctuations: None Attestation: Base Eye Exam Visual Acuity (Snellen - Linear) Right Left Dist sc 20/30 -2 20/25 -1 Dist ph sc NI Correction: Glasses Tonometry (Applanation, 13:47) Right Left Pressure 16 14 Neuro/Psych Oriented x3: Yes Mood/Affect: Normal Dilation Both eyes: Tropicamide 1%, Phenylephrine 2.5% @ 13:47 Slit Lamp and Fundus Exam Slit Lamp [...] Eye Quality was good. Scan locations included extrafoveal. Progression has been stable. Findings include pigment epithelial detachment. Notes No fluid Intravitreal Injection, Pharmacologic Agent - OU - Both Eyes Time Out 02/21/2022. 15:10. Confirmed correct patient, procedure, site, and patient [...] mL Route: intravitreal, Site: Right Eye NDC: 85977-943-17, Lot: [id number], Expiration date: 2022 Left Eye Preparation included eyelid speculum, 5% betadine to ocular surface. A 30 gauge needle was used. Injection: 2 mg aflibercept 2 mg/0.05 mL Route: intravitreal, Site: Left Eye NDC: 23836-240-08, Lot: [id number], Expiration date: 11/21/2022 Post-op Right Eye Post injection exam found [...] degeneration of both eyes with active choroidal neovascularization([facility]) ([facility]) OCT, RETINA - OU - BOTH EYES [...] eyes Not visually significant Observe ?? Return Apr 11 for OCT and Eylea right eye I have reviewed the [...] Info) Description 07/21/2024 11:00 EDT Office Visit [facility] Ophthalmology - [address] [phone] Marcial Magaña MD [address] [place] [address], [address] [place] [phone] 07/25/2024 11:00 EDT Phlebotomy Only [facility] Hematology & Oncology [address] [address] Blood Doctor, [facility] Hem Onc 07/25/2024 11:45 EDT Office Visit [facility] Hematology & Oncology [address] [address] Abebe Ralph MD 111 [facility], [facility], [address] [place] [phone] 07/25/2024 12:30 EDT Appointment [facility] Cancer Center Hematology & Oncology - [facility] [address] [place], [place] [address] 01/03/2025 16:20 EDT Appointment [facility] Breast Imaging Mammography - [facility] [address] [place], [place] [address] documented as of this encounter Procedures Procedure Name Priority Date/Time Associated Diagnosis Comments INTRAVITREAL INJECTION, PHARMACOLOGIC AGENT - OU - BOTH EYES Routine 02/21/2022 15:19 EST Exudative age-related macular degeneration of both eyes with active choroidal neovascularization ([facility]) OCT, RETINA - OU - BOTH EYES Routine 02/21/2022 15:06 EST Exudative age-related macular degeneration of both eyes with active choroidal neovascularization ([facility]) documented in this encounter Results * INTRAVITREAL INJECTION, PHARMACOLOGIC AGENT - OU - BOTH EYES (02/21/2022 15:19 EST) Narrative [facility] POINT OF CARE - 02/21/2022 15:22 EST Time Out 02/21/2022. 15:10. Confirmed correct patient, procedure, site, and patient [...] mg/0.05 mL ??Route: intravitreal, Site: Right Eye ??[facility]: [id number], Lot: [id number], Expiration date: 2022 Left Eye Preparation included eyelid speculum, 5% betadine to ocular surface. A 30 gauge needle was used. Injection: 2 mg aflibercept 2 mg/0.05 mL ??Route: intravitreal, Site: Left Eye ??[facility]: [id number], Lot: [id number], Expiration date: 11/21/2022 Post-op Right Eye Post injection exam found [...] PROCEDURES Final Re sult Performing Organization Address [facility] Co de Phone Number [facility] POINT OF CARE * OCT, RETINA - OU - BOTH EYES (02/21/2022 15:06 EST) Narrative [facility] OPHTHALMOLOGY - 02/21/2022 15:22 EST Right Eye Quality was good. Scan locations included subfoveal. Progression has been stable. Findings include pigment epithelial detachment. Left Eye Quality was good. Scan locations included extrafoveal. Progression has been stable. Findings include pigment epithelial detachment. Notes No fluid Marcial Magaña MD OPHTH TOMOGRAPHY Final Result Performing Organization Address [facility] de Phone Number [facility] OPHTHALMOLOGY documented in this encounter Visit Diagnoses Diagnosis Exudative age-related macular degeneration of both eyes with active choroidal neovascularization ([facility]-CMS)- Primary Encounter for screening mammogram for malignant neoplasm of breast Other screening mammogram documented in this encounter Administered Medications Inactive Administered Medications - up to 3 most recent administrations Medication Order MAR Action Action Date Dose Rate Site aflibercept (EYLEA) intravitreal syringe 2 mg 2 mg, intravitreal, Starting on Thu02/21/22 at 1519, Until Thu02/21/22 at 1723, RoutineIndications:Exudative age-related macular degeneration of both eyes with active choroidal neovascularization (HCC-CMS) Given 02/21/2022 15:19 EST 2 mg Right E ye aflibercept (EYLEA) intravitreal syringe 2 mg 2 mg, intravitreal, Starting on Thu02/21/22 at 1519, Until Thu02/21/22 at 1723, RoutineIndications:Exudative age-related macular degeneration of both eyes with active choroidal neovascularization ([facility]) Given 02/21/2022 15:19 EST 2 mg Left Ey e documented in this encounter Orders Medications Ordered That Trevor ht Not Have Been Administered Count Last Ordered Date First Ordered Date aflibercept (EYLEA) intravit real syringe 2 mg 1 02/21/2022 documented in this encounter Eye Exam Visual Acuity (Snellen - Linear) Right eye Left eye Dist sc 20/30 -2 20/25 -1 Dist ph sc NI Correction: Glasses Tonometry (Applanation, 13:47) Right eye Left eye Pressure 16 14 Neuro/Psych Oriented x3: Yes Mood/Affect: Normal Dilation Both eyes: Tropicamide 1%, P henylephrine 2.5% @ 13:47 Slit Lamp Exam Right eye Left eye [...] sions Attached without predisposing lesions Care Teams Roads And Parking Lots Sweeper Operator Relationship Specialty Start Date End Date Millie Hilton MD [address] [place], [place] [address] PCP - General 01/03/22 Kimi Deleon MD [address] [place] [phone] 05/16/20 Hannah Batres NP [address] [place], [place] [address] 05/16/20 documented as of this encounter
--- OUTSIDE RECORDS SUMMARY | 2024-04-19 08:09 | XMS_ITS | Encounter Summary ---
Author Organization [facility] [place] Address [address] [place] [address] Care Team Providers Care Loom Starter Name Role Phone Kimi Deleon MD Unavailable aHnnah Batres NP Unavailable [phone] Millie Hilton MD Primary Care Provider [phone] Reason for Visit * Reason Comments Eye Problem Encounter Details Date Type Department Care Team (Late st Contact Info) Description 12/12/2022 13:00 EDT Office Visit [facility] Ophthalmology - [address] [address] Marcial Magaña MD 111 [facility], Level 5 [place] [address] Social History Tobacco Use Types [...] Progress Notes * Marcial Magaña MD - 12/12/2022 1300 EDT Chief Complaint Patient presents with ??? Eye Problem HPI Wet AMD both eyes. 7 weeks s/p Eylea right eye 10/23/22. 12 weeks s/p Eylea both eyes 09/05/22. Visionseems stable. No pain, or new flashes, or floaters. No drops. Base Eye Exam Visual Acuity (Snellen - Linear) Right Left Dist sc 20/40 -2 20/30 +2 Dist ph sc NI 20/25 Correction: Glasses Tonometry (Applanation, 13:11) Right Left Pressure 11 11 Neuro/Psych Oriented x3: Yes Mood/Affect: Normal Dilation Both eyes: Tropicamide 1%, Phenylephrine 2.5% @ 13:11 Slit Lamp and Fundus Exam Slit Lamp [...] - OU - Both Eyes Time Out 12/12/2022. 13:16. Confirmed correct patient, procedure, site, and patient [...] mL Route: intravitreal, Site: Right Eye NDC: 44315-260-90, Lot: [id number], Expiration date: 04/23/2023 Left Eye Preparation included 5% betadine to ocular surface, eyelid speculum. A 30 gauge needle was used. Injection: 2 mg aflibercept 2 mg/0.05 mL Route: intravitreal, Site: Left Eye NDC: 27106-938-64, Lot: [id number], Expiration date: 06/22/2023 Post-op Right Eye Post injection exam found [...] both eyes with active choroidal neovascularization([facility] ([facility]) OCT, RETINA - OU - BOTH EYES INTRAVITREAL INJECTION, PHARMACOLOGIC AGENT - OU - BOTH EYES aflibercept (EYLEA) intravitreal syringe 2 mg aflibercept (EYLEA) intravitreal syringe 2 mg 2. 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 Stable vision with occasional rare SR cysts??under Eylea every 7??weeks??right eye Stable vision without fluid under Eylea every 14 weeks left eye Had fluid and vision loss 8 weeks out??right eye. Offer Eylea??both eyes and??continue every??7??weeks??for right eye??and 14??weeks for the left. Patient agrees Eylea injection done to both eyes today ?? Nuclear??cataract both eyes Not visually significant Observe Return in about 7 weeks (around 01/30/2023) for Eylea right, OCT. I am scribing for Dr. Marcial Magaña MD while he is personally performing the service. Bennett Ott (Scribe) documented in this encounter Plan of Treatment Upcoming Encounters Date Type Department Care Team (Late st Contact Info) Description 07/21/2024 11:00 EDT Office Visit [facility] Ophthalmology - [address] [phone] Marcial Magaña MD [address] [place] [address] 5 [place] [phone] 07/25/2024 11:00 EDT Phlebotomy Only [facility] Hematology & Oncology - [address] [phone] Blood Doctor, [facility] Hem Onc 07/25/2024 11:45 EDT Office Visit [facility] Hematology & Oncology [address] [phone] Abebe Ralph MD [address] [place] [address], Level 2 [place] [phone] 07/25/2024 12:30 EDT Appointment [facility] Hematology & Oncology [address] [phone] 01/03/2025 16:20 EDT Appointment [facility] Breast Imaging Mammography - [address] [phone] documented as of this encounter Procedures Procedure Name Priority Date/Time Associated Diagnosis Comments INTRAVITREAL INJECTION, PHARMACOLOGIC AGENT - OU - BOTH EYES Routine 12/12/2022 13:32 EDT 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 13:16. Confirmed correct patient, procedure, site, and patient [...] mg/0.05 mL ??Route: intravitreal, Site: Right Eye [facility]: 93306-858-75, Lot: [id number], Expiration date: 04/23/2023 Left Eye Preparation included 5% betadine to ocular surface, eyelid speculum. A 30 gauge needle was used. Injection: 2 mg aflibercept 2 mg/0.05 mL ??Route: intravitreal, Site: Left Eye [facility]: 65949-502-85, Lot: [id number], Expiration date: 06/22/2023 Post-op Right Eye Post injection exam found [...] MD OPHTH CLINIC PROCEDURES Final Re sult [facility] * OCT, RETINA - OU - BOTH EYES (12/12/2022 13:29 EDT) Narrative [facility] OPHTHALMOLOGY - 12/12/2022 14:21 EDT Right Eye Quality was good. Scan locations included subfoveal. Progression has been stable. Findings include pigment epithelial detachment. Left Eye Quality was good. Scan locations included juxtafoveal. Progression has been stable. Findings include pigment epithelial detachment. Notes No fluid Marcial Magaña MD OPHTH TOMOGRAPHY Final Result Performing Organization Address [facility]/ZIP Co de Phone Number [facility] OPHTHALMOLOGY documented in this encounter Visit [...] 2 mg 2 mg, intravitreal, Starting on Thu12/12/22 at 1421, Until Thu12/12/22 at 1421, RoutineIndications:Exudative age-related macular degeneration of both eyes with active choroidal neovascularization (HCC-CMS) Given 12/12/2022 14:21 EDT 2 mg Right E ye aflibercept (EYLEA) intravitreal syringe 2 mg 2 mg, intravitreal, Starting on Thu12/12/22 at 1421, Until Thu12/12/22 at 1421, RoutineIndications:Exudative age-related macular degeneration of both eyes with active choroidal neovascularization (HCC-CMS) Given 12/12/2022 14:21 EDT 2 mg Left Ey e documented in this encounter Orders Medications Ordered That Trevor ht Not Have Been Administered Count Last Ordered Date First Ordered Date aflibercept (EYLEA) intravit real syringe 2 mg 1 12/12/2022 documented in this encounter Eye Exam Visual Acuity (Snellen - Linear) Right eye Left eye Dist sc 20/40 -2 20/30 +2 Dist ph sc NI 20/25 Correction: Glasses Tonometry (Applanation, 13:11) Right eye Left eye Pressure 11 11 Neuro/Psych Oriented x3: Yes Mood/Affect: Normal Dilation Both eyes: Tropicamide 1%, P henylephrine 2.5% @ 13:11 Slit Lamp Exam Right eye Left eye [...] sions Attached without predisposing lesions Care Teams Loom Starter Relationship Specialty Start Date End Date Millie Hilton MD [address] [place] [address] PCP - General 01/03/22 Kimi Deleon MD [address] [place] [phone] 05/16/20 Hannah Batres NP [address] [place], [place] [address] 05/16/20 documented as of this encounter
--- OUTSIDE RECORDS SUMMARY | 2024-04-19 08:09 | XMS_ITS | Encounter Summary ---
Author Organization [facility] Address [address] [place] [address] Care Team Providers Care Sleep Lab Technologist Name Role Phone Kimi Deleon MD Unavailable Hannah Batres NP Unavailable [phone] Millie Hilton MD Primary Care Provider [phone] Reason for Visit * Reason Onset Date Comments Results 01/27/2023 Encounter Details Date Type Department Care Team (Late st Contact Info) Description 01/27/2023 Telephone [facility] Cancer Center Hematology & Oncology - [facility] [address] [place] [address] Abebe Ralph MD 111 [facility], [facility] 2 [place] [address] Results Social History Tobacco Use Types Packs/Day Years [...] encounter Miscellaneous Notes * Telephone Encounter - Kindra Owen - 01/27/2023 1128 EST LABS ENTERED FROM EXTERNAL LAB. Kindra Owen 01/27/2023 11:28 documented in this encounter Plan of Treatment Upcoming Encounters Date Type Department Care Team (Late st Contact Info) Description 07/21/2024 11:00 EDT Office Visit [facility] Ophthalmology [address] [phone] Marcial Magaña MD [address] [place] [phone] 07/25/2024 11:00 EDT Phlebotomy Only [facility] Hematology & Oncology [address] [phone] Blood Doctor, [facility] Hem Onc 07/25/2024 11:45 EDT Office Visit [facility] Hematology & Oncology [address] [phone] Abebe Ralph MD [address] [place] [address] 2 [place] [phone] 07/25/2024 12:30 EDT Appointment [facility] Cancer Center Hematology & Oncology - [address] [phone] 01/03/2025 16:20 EDT Appointment [facility] Breast Imaging Mammography - [address] [phone] documented as of this encounter Procedures Procedure Name Priority Date/Time Associated Diagnosis Comments COMPREHENSIVE METABOLIC PANEL (ONCOLOGY USE ONLY-INC MG) Routine 01/23/2023 VITAMIN D (25,OH) Routine 01/23/2023 LIPID PROFILE (INCLUDES CHOLESTEROL, TRIGLYCERIDES, HDL, LDL) Routine 01/23/2023 documented in this encounter Results * VITAMIN D (25,OH) (01/23/2023) 25OH Vitamin D Tot, External 33.5 EXTERNAL LAB Blood VENOUS BLOOD / Unknown 01/23/2023 us Historical Provider CHEMISTRY & BLOOD GAS ORD ERABLES Final Result EXTERNAL LAB * (ABNORMAL) COMPREHENSIVE METABOLIC PANEL (ONCOLOGY USE ONLY-INC MG) (01/23/2023) Calcium, External 9.5 mg/dL EXTERNAL LAB CO2, External 27.0 mmol/L EXTERNAL LAB AST, External EXTERNAL LAB ALT, External EXTERNAL LAB Bilirubin, Total, External EXTERNAL LAB Creatinine, External 0.9 mg/dL EXTERNAL LAB Calculated Calcium, External EXTERNAL LAB Anion Gap, External EXTERNAL LAB Total Protein, External EXTERNAL LAB Potassium, External 4.5 mmol/L EXTERNAL LAB Total Alkaline Phosphatase, External EXTERNAL LAB Albumin, External EXTERNAL LAB BUN, External 17 mg/dL EXTERNAL LAB GFR, Calculated, External 67.08 EXTERNAL LAB Fasting?, External EXTERNAL LAB Chloride, External 105 mmol/L EXTERNAL LAB Glucose, Serum, External 108(A) 74 - 106 mg/dL EXTERNAL LAB Sodium, External 140 mmol/L EXTERNAL LAB Magnesium, External EXTERNAL LAB Blood VENOUS BLOOD / Unknown 01/23/2023 Historical Provider CHEMISTRY & BLOOD GAS ORD ERABLES Final Result EXTERNAL LAB * (ABNORMAL) LIPID PROFILE (INCLUDES CHOLESTEROL, TRIGLYCERIDES, HDL, LDL) (01/23/2023) Cholesterol, External 215(A) <=200 mg/dL EXTERNAL LAB Triglycerides, External 79 mg/dL EXTERNAL LAB HDL, External 58 mg/dL EXTERNAL LAB LDL, External 142(A) <=100 mg/dL EXTERNAL LAB Chol/HDL Ratio, External EXTERNAL LAB Fasting?, External EXTERNAL LAB Blood VENOUS BLOOD / Unknown 01/23/2023 Historical Provider CHEMISTRY & BLOOD GAS ORD ERABLES Final Result EXTERNAL LAB documented in this encounter Visit Diagnoses Not on filedocumented in this encounter Care Teams Sleep Lab Technologist Relationship Specialty Start Date End Date Millie Hilton MD [address] [place] [address] PCP - General 01/03/22 Kimi Deleon MD [address] [place] [phone] 05/16/20 Hannah Batres NP [address] [place] [address] 05/16/20 documented as of this encounter
--- OUTSIDE RECORDS SUMMARY | 2024-04-19 08:09 | XMS_ITS | Encounter Summary ---
Author Organization [facility] Address [address] [place] [address] Care Team Providers Care Tonsorial Artist Name Role Phone Kimi Deleon MD Unavailable [phone] Hannah Batres NP Unavailable [phone] Millie Hilton MD Primary Care Provider [phone] Reason for Visit * Reason Onset Date Comments Appointment Related 01/25/2023 Encounter Details Date Type Department Care Team (Late st Contact Info) Description 01/25/2023 Orders Only [facility] Cancer Center Hematology & Oncology - [facility] [address] [place] [address] Annie Jimenez, CÉSAR Social History Tobacco Use Types Packs/Day [...] in this encounter Progress Notes * Annie Jimenez RN - 01/25/2023 1547 EST Labs needed for Prolia scheduled on 01/28, msg sent to regarding [facility] vs. OP lab here at [facility]. ANNIE JIMENEZ RN 01/25/2023 15:47 documented in this encounter Plan of Treatment Upcoming Encounters Date Type Department Care Team (Late st Contact Info) Description 07/21/2024 11:00 EDT Office Visit [facility] Ophthalmology - [address] [phone] Marcial Magaña MD [address] [place] [address] 5 [place] [phone] 07/25/2024 11:00 EDT Phlebotomy Only [facility] Hematology & Oncology [address] [phone] Blood Doctor, [facility] Hem Onc 07/25/2024 11:45 EDT Office [facility] Hemat[facility] Oncology [address] [phone] Abebe Ralph MD [address] [place] [address], Level [address] [place] [phone] 07/25/2024 12:30 EDT Appointment [facility] Cancer Center Hematology & Oncology - [address] [phone] 01/03/2025 16:20 EDT Appointment [facility] Breast Imaging Mammography - [address] [phone] documented as of this encounter Visit Diagnoses Not on filedocumented in this encounter Care Teams Tonsorial Artist Relationship Specialty Start Date End Date Millie Hilton MD [address] [place] [address] PCP - General 01/03/22 Kimi Deleon MD [address] [place] [phone] 05/16/20 Hannah Batres NP [address] [place] [address] 05/16/20 documented as of this encounter
--- OUTSIDE RECORDS SUMMARY | 2024-04-19 08:09 | XMS_ITS | Encounter Summary ---
Author Organization [facility] Address [address] [place] [address] Care Team Providers Care Meter Reader Inspector Name Role Phone Kimi Deleon MD Unavailable Hannah Batres NP Unavailable [phone] Millie Hilton MD Primary Care Provider [phone] Reason for Visit * Reason Comments Eye Problem WET age-related macu lar degeneration-both eyes Encounter Details Date Type Department Care Team (Late st Contact Info) Description 09/05/2022 13:30 EDT Office Visit [facility] Ophthalmology - [address] [phone] Marcial Magaña MD 111 [facility], Level [address] [place] [address] Social History Tobacco Use Types [...] Progress Notes * Marcial Magaña MD - 09/05/2022 1330 EDT Chief Complaint Patient presents with ??? Eye Problem WET age-related macular degeneration-both eyes HPI Eye Problem Comments: WET age-related macular degeneration-both eyes Comments History of Eylea injections both eyes Vision is the same both eyes no pain, flashes, or floaters Base Eye Exam Visual Acuity (Snellen - Linear) Right Left Dist cc 20/40 20/25 Tonometry (Applanation, 13:40) Right Left Pressure 18 18 Pupils Pupils APD Right PERRL None Left PERRL None Neuro/Psych Oriented x3: Yes Mood/Affect: Normal Dilation Both eyes: Phenylephrine 2.5%, Tropicamide 1% @ 13:40 Slit Lamp and Fundus Exam Slit Lamp [...] cysts right Intravitreal Injection, Pharmacologic Agent - OU - Both Eyes Time Out 09/05/2022. 14:17. Confirmed correct patient, procedure, site, and [...] mL Route: intravitreal, Site: Right Eye NDC: 56359-228-06, Lot: [id number], Expiration date: 04/23/2023 Left Eye Preparation included 5% betadine to ocular surface, eyelid speculum. A 30 gauge needle was used. 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 Stable vision with rare SR cysts??under Eylea every 7??weeks??right eye Stable vision without fluid under Eylea every 14 weeks left eye Had fluid and vision loss 8 weeks out??right eye. Offer Eylea??both eyes and??continue every??7??weeks??for right eye??and 14??weeks for the left. Patient agrees ??Eylea injection done to both eyes today ?? Nuclear??cataract both eyes Not visually significant Observe Return in about 7 weeks (around 10/24/2022), or if symptoms worsen or fail to improve, for OCT, Mouna amin, dilated exam. I am scribing for Dr. Marcial Magaña MD while he is personally performing the service. MERLINE Sewell (Scribe) documented in this encounter Plan of Treatment Upcoming Encounters Date Type Department Care Team (Late st Contact Info) Description 07/21/2024 11:00 EDT Office Visit [facility] Ophthalmology - [address] [phone] Marcial Magaña MD [address] [place] [address] 5 [place] [phone] 07/25/2024 11:00 EDT Phlebotomy Only [facility] Hematology & Oncology - [address] [phone] Blood Doctor, [facility] Hem Onc 07/25/2024 11:45 EDT Office Visit [facility] Hematology & Oncology [address] [phone] Abebe Ralph MD [address] [place] [address], Level [address] [place] [phone] 07/25/2024 12:30 EDT Appointment [facility] Hematology & Oncology [address] [phone] 01/03/2025 16:20 EDT Appointment [facility] Breast Imaging Mammography - [address] [phone] documented as of this encounter Procedures Procedure Name Priority Date/Time Associated Diagnosis Comments INTRAVITREAL INJECTION, PHARMACOLOGIC AGENT - OU - BOTH EYES Routine 09/05/2022 14:19 EDT 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 14:17. Confirmed correct patient, procedure, site, and [...] mg/0.05 mL ??Route: intravitreal, Site: Right Eye ??[facility]: 23376-307-76, Lot: [id number], Expiration date: 04/23/2023 Left Eye Preparation included 5% betadine to ocular surface, eyelid speculum. A 30 gauge needle was used. Injection: 2 mg aflibercept 2 mg/0.05 mL ??Route: intravitreal, Site: Left Eye ??[facility]: 41247-574-96, Lot: [id number], Expiration date: 05/22/2023 Post-op Right Eye Post injection exam found [...] OCT, RETINA - OU - BOTH EYES (09/05/2022 14:14 EDT) Narrative [facility] OPHTHALMOLOGY - 09/05/2022 15:52 EDT Right Eye Quality was good. Scan locations included subfoveal. Progression has been stable. Findings include pigment epithelial detachment, subretinal fluid. Left Eye Quality was good. Scan locations included juxtafoveal. Progression has been stable. Findings include pigment epithelial detachment. Notes Rare SR cysts right us Marcial Magaña MD OPHTH TOMOGRAPHY Final Result [facility] OPHTHALMOLOGY documented in this encounter Visit Diagnoses [...] 2 mg 2 mg, intravitreal, Starting on Thu09/05/22 at 1552, Until Thu09/05/22 at 1752, RoutineIndications:Exudative age-related macular degeneration of both eyes with active choroidal neovascularization (HCC-CMS) Given 09/05/2022 15:52 EDT 2 mg Right E ye aflibercept (EYLEA) intravitreal syringe 2 mg 2 mg, intravitreal, Starting on Thu09/05/22 at 1552, Until Thu09/05/22 at 1752, RoutineIndications:Exudative age-related macular degeneration of both eyes with active choroidal neovascularization (HCC-CMS) Given 09/05/2022 15:52 EDT 2 mg Left Ey e documented in this encounter Orders Medications Ordered That Trevor ht Not Have Been Administered Count Last Ordered Date First Ordered Date aflibercept (EYLEA) intravit real syringe 2 mg 1 09/05/2022 documented in this encounter Eye Exam Visual Acuity (Snellen - Linear) Right eye Left eye Dist cc 20/40 20/25 Tonometry (Applanation, 13:40) Right eye Left eye Pressure 18 18 Pupils Pupils APD Right eye PERRL None Left eye PERRL None Neuro/Psych Oriented x3: Yes Mood/Affect: Normal Dilation Both eyes: Phenylephrine 2.5 %, Tropicamide 1% @ 13:40 Slit Lamp Exam Right eye Left eye [...] sions Attached without predisposing lesions Care Teams Meter Reader Inspector Relationship Specialty Start Date End Date Millie Hilton MD [address] [place] [address] PCP - General 01/03/22 Kimi Deleon MD [address] [place] [phone] 05/16/20 Hannah Batres NP [address] [place] [address] 05/16/20 documented as of this encounter
--- OUTSIDE RECORDS SUMMARY | 2024-04-19 08:09 | XMS_ITS | Encounter Summary ---
Author Organization [facility] Address [address] [place] [address] Care Team Providers Care Rattle Leak And Squeak Repairer Name Role Phone Kimi Deleon MD Unavailable Hannah Batres NP Unavailable [phone] Millie Hilton MD Primary Care Provider [phone] Reason for Visit * Reason Onset Date Comments Appointment Related 01/26/2023 Encounter Details Date Type Department Care Team (Late st Contact Info) Description 01/26/2023 Telephone [facility] Cancer Center Hematology & Oncology - [facility] [address] [place] [address] Abebe Ralph MD 111 [facility] 2 [place] [address] Appointment Related Social History Tobacco [...] * Telephone Encounter - Tien Maier - 01/26/2023 0935 EST lmom for pt about labs needed before 01/28 appts left PAC# to let us know if she is doing them at [facility] or at the op lab . documented in this encounter Plan of Treatment Upcoming Encounters Date Type Department Care Team (Late st Contact Info) Description 07/21/2024 11:00 EDT Office Visit [facility] Ophthalmology [address] [phone] Marcial Magaña MD [address] [place] [address], Level [address] [place] [phone] 07/25/2024 11:00 EDT Phlebotomy Only [facility] Hematology & Oncology [address] [phone] Blood Doctor, [facility] Hem Onc 07/25/2024 11:45 EDT Office Visit [facility] Hematology & Oncology [address] [phone] Abebe Ralph MD 111 [facility], [facility], Level [address] [place] [phone] 07/25/2024 12:30 EDT Appointment [facility] Cancer Center Hematology & Oncology - [address] [phone] 01/03/2025 16:20 EDT Appointment [facility] Breast Imaging Mammography - [address] [address] documented as of this encounter Visit Diagnoses Not on filedocumented in this encounter Care Teams Rattle Leak And Squeak Repairer Relationship Specialty Start Date End Date Millie Hilton MD [address] [place] [address] PCP - General 01/03/22 Kimi Deleon MD [address] [place] [address] 05/16/20 Hannah Batres NP [address] [place] [address] 05/16/20 documented as of this encounter
--- OUTSIDE RECORDS SUMMARY | 2024-04-19 08:09 | XMS_ITS | Encounter Summary ---
Author Organization [facility] Address [address] [place] [address] Care Team Providers Care Chief Marketing Officer Name Role Phone Kimi Deleon MD Unavailable [phone] Hannah Batres NP Unavailable [phone] Millie Hilton MD Primary Care Provider [phone] Reason for Referral * Radiology Services (Routine/Next Available) - Authorization Not Required Specialty Diagnoses / Procedures Referred By Contac t Referred To Contact Diagnoses Malignant neoplasm of upper-outer quadrant of right breast in female, estrogen receptor positive (HCC-CMS) Left-sided low back pain without sciatica, unspecified chronicity Procedures XR LUMBAR SPINE 2-3 VIEWS Xena Nieves PA-C Phone: tel: fax: [facility] Referral ID Status Reason Start Date Expiration Date Visits Requested Visits Authorized [id number] Authorization Not Required 2 1 1 Reason for Visit * Radiology Services (Routine/Next Available) - Authorization Not Required Specialty Diagnoses / Procedures Referred By Contac t Referred To Contact Diagnoses Malignant neoplasm of upper-outer quadrant of right breast in female, estrogen receptor positive (HCC-CMS) Left-sided low back pain without sciatica, unspecified chronicity Procedures XR LUMBAR SPINE 2-3 VIEWS Xena Nieves PA-C Phone: tel: fax: [facility] Referral ID Status Reason Start Date Expiration Date Visits Requested Visits Authorized [id number] Authorization Not Required 2 1 1 Encounter Details Date Type Department Care Team (Latest Contact Info) Description 02/05/2022 13:07 EST - 02/05/2022 23:59 EST [facility] Radiology Xray Outpatient - [address] [address] Malignant neoplasm of upper-outer quadrant of right breast in female, estrogen receptor positive (HCC-CMS); Left-sided low back pain without sciatica, unspecified chronicity Discharge Disposition: Home or Self Care Social [...] skin every 6 months. (started 12/16/18 at [facility]) Fish Oil-Aquilla-3 Fatty Acids 360-1,200 mg capsule 1360mg, 2 [...] by mouth daily. anastrozole (ARIMIDEX) 1 mg tablet Take 1 Tablet by mouth daily for 90 days. 90 Tablet 3 10/11/2021 3 ANASTROZOLE ORAL Take by mouth. 04/0 4 cholecalciferol, Vitamin D3, 1,000 unit tablet Take 4,000 Units by mouth daily. 4 citalopram (CELEXA) 10 mg tabletIndication s:Malignant neoplasm of upper-outer quadrant of right breast in female, estrogen receptor positive (HCC-CMS) TAKE 1 TABLET BY MOUTH AT BEDTIME 30 Tablet 2 12/01/2021 2 documented as of this encounter Discharge Disposition Disposition Code Departure Means Destination Home or Self Care documented in this encounter Plan of Treatment Upcoming Encounters Date Type Department Care Team (Late st Contact Info) Description 07/21/2024 11:00 EDT Office Visit [facility] Ophthalmology - [address] [address] Marcial Magaña MD [address] [place] [address], [address] [place] [phone] 07/25/2024 11:00 EDT Phlebotomy Only [facility] Hematology & Oncology - [address] [id number] Blood Doctor, [facility] Hem Onc 07/25/2024 11:45 EDT Office Visit [facility] Hematology & Oncology [address] [phone] Abebe Ralph MD [address] [place] [address], [facility], [address] [place] [phone] 07/25/2024 12:[address] [facility] Hematology & Oncology [address] [id number] 01/03/2025 16:20 EDT Appointment [facility] Breast Imaging Mammography - [address] [id number] documented as of this encounter Procedures Procedure Name Priority Date/Time Associated Diagnosis Comments XR LUMBAR SPINE 2-3 VIEWS Routine 02/05/2022 13:14 EST Malignant neoplasm of upper-outer quadrant of right breast in female, estrogen receptor positive (HCC-CMS) Left-sided low back pain without sciatica, unspecified chronicity documented in this encounter Results * XR LUMBAR SPINE 2-3 VIEWS (02/05/2022 13:14 EST) Anatomical Region Laterality Modality Spine Computed Radiogr aphy 02/05/2022 12:4 1 EST Impressions 02/05/2022 14:32 EST 1. Mild degenerative disk disease which could be better evaluated by means of MRI as clinically indicated. 2. Apparent osteopenia with mild, likely chronic biconcave height loss of the L1 vertebral body. THIS DOCUMENT HAS BEEN ELECTRONICALLY SIGNED BY LUI CONTRERAS MD FOR ANY QUESTIONS OR CONCERNS REGARDING THIS REPORT PLEASE CALL [facility] AT [phone] Narrative 02/05/2022 14:32 EST PROCEDURE INFORMATION: Exam: XR Lumbosacral Spine Exam date and time: 02/05/2022 1:30 PM Age: 71 years old Clinical indication: Malignant neoplasm of upper-outer quadrant of right female breast; Estrogen receptor positive status (er+); Low back pain, unspecified; Additional info: Persistent low back pain, l> R TECHNIQUE: Imaging protocol: Radiologic exam of the lumbosacral spine. Views: 2 or 3 views. COMPARISON: No relevant prior studies available. FINDINGS: Bones/joints: There is mild biconcave height loss of the L1 vertebral body, probably chronic. Vertebral body heights are otherwise intact. There is a slight upper lumbar dextroscoliosis. Spinal alignment is otherwise maintained. The pedicles appear intact. No acute fracture is identified. There is mild multilevel facet arthrosis, disc space narrowing and marginal osteophyte formation. The bones appear osteopenic. Soft tissues: Grossly unremarkable. Vasculature: Atherosclerotic vascular calcifications are noted. Procedure Note Lui Contreras MD - 02/05/2022 PROCEDURE INFORMATION: Exam: XR Lumbosacral Spine Exam date and time: 02/05/2022 1:30 PM Age: 71 years old Clinical indication: Malignant neoplasm of upper-outer quadrant of rightfemale breast; Estrogen receptor positive status (er+); Low back pain,unspecified; Additional info: Persistent low back pain, l> R TECHNIQUE: Imaging protocol: Radiologic exam of the lumbosacral spine. Views: 2 or 3 views. COMPARISON: No relevant prior studies available. FINDINGS: Bones/joints: There is mild biconcave height loss of the L1 vertebralbody, probably chronic. Vertebral body heights are otherwise intact. There is a slight upper lumbar dextroscoliosis. Spinal alignment is otherwisemaintained. The pedicles appear intact. No acute fracture is identified. There is mild multilevel facet arthrosis, disc space narrowing and marginal osteophyte formation. The bones appear osteopenic. Soft tissues: Grossly unremarkable. Vasculature: Atherosclerotic vascular calcifications are noted. IMPRESSION 1. Mild degenerative disk disease which could be better evaluated by meansof MRI as clinically indicated. 2. Apparent osteopenia with mild, likely chronic biconcave height loss ofthe L1 vertebral body. THIS DOCUMENT HAS BEEN ELECTRONICALLY SIGNED BY LUI CONTRERAS MD FOR ANY QUESTIONS OR CONCERNS REGARDING THIS REPORT PLEASE CALL [facility] [phone] Xena Nieves PA-C [facility] OR DERABLES Final Result documented in this encounter Visit Diagnoses Diagnosis Malignant neoplasm of upper-outer quadrant of right breast in female, estrogen receptor positive (HCC-CMS) Left-sided low back pain without sciatica, unspecified chronicity Encounter for screening mammogram for malignant neoplasm of breast Other screening mammogram documented in this encounter Care Teams Chief Marketing Officer Relationship Specialty Start Date End Date Millie Hilton MD [address] [place] [address] PCP - General 01/03/22 Kimi Deleon MD [address] [place] [phone] 05/16/20 Hannah Batres NP [address] [place] [address] 05/16/20 documented as of this encounter
--- OUTSIDE RECORDS SUMMARY | 2024-04-19 08:09 | XMS_ITS | Encounter Summary ---
Author Organization [facility] Address [address] [place] [address] Care Team Providers Care Pull Over Name Role Phone Kimi Deleon MD Unavailable Hannah Batres NP Unavailable [phone] Millie Hilton MD Primary Care Provider [phone] Reason for Visit * Reason Comments Medications Refill Encounter Details Date Type Department Care Team (Late st Contact Info) Description 06/01/2022 Refill [facility] Hematology & Oncology - [address] [address] Abebe Ralph MD [address] [facility], [address] [place] [address] Medications Refill Social History Tobacco [...] BY MOUTH DAILY 90 Tablet 3 06/02/2022 06/30/2023 documented in this encounter Miscellaneous Notes * Telephone Encounter - Alma Garcia RN - 06/02/2022 1149 EDT A renewal prescription of anastrozole has been pended to Dr Ralph for signature . Per the last office note, Continue daily anastrozole. Discussed trying naproxen to address general arthralgia on AI.. documented in this encounter Plan of Treatment Upcoming Encounters Date Type Department Care Team (Late st Contact Info) Description 07/21/2024 11:00 EDT Office Visit [facility] Ophthalmology - [address] [phone] Marcial Magaña MD [address] [facility], [address] [place] [phone] 07/25/2024 11:00 EDT Phlebotomy Only [facility] Hematology & Oncology - [address] [address] Blood Doctor, [facility] Hem Onc 07/25/2024 11:45 EDT Office Visit [facility] Hematology & Oncology [address] [address] Abebe Ralph MD [address] [facility], [address] [place] [phone] 07/25/2024 12:30 EDT Appointment [facility] Hematology & Oncology [address] [phone] 01/03/2025 16:20 EDT Appointment [facility] Breast Imaging Mammography - [address] [phone] documented as of this encounter Visit Diagnoses Diagnosis Malignant neoplasm of upper-outer quadrant of right breast in female, estrogen receptor positive ([facility])- Primary Encounter for screening mammogram for malignant neoplasm of breast Other screening mammogram documented in this encounter Discontinued Medications Medication Sig Discontinue Reason Start Date End Da te anastrozole (ARIMIDEX) 1 mg tablet Take 1 Tablet by mouth daily for 90 days. 10/11/2021 06/02/2022 documented as of this encounter Care Teams Pull Over Relationship Specialty Start Date End Date Millie Hilton MD [address] [place] [address] PCP - General 01/03/22 Kimi Deleon MD [address] [place] [phone] 05/16/20 Hannah Batres NP [address] [place], [place] [phone] 05/16/20 documented as of this encounter
--- OUTSIDE RECORDS SUMMARY | 2024-04-19 08:09 | XMS_ITS | Encounter Summary ---
Author Organization [facility] Address [address] [place] [address] Care Team Providers Care Career Placement Specialist Name Role Phone Kimi Deleon MD Unavailable [phone] Hannah Batres HEADLIGHT ASSEMBLER Unavailable [phone] Millie Hilton MD Primary Care Provider [phone] Reason for Visit * Reason Comments Injections Pt here for Eylea In jection Right eye f/u Wet AMD both eyes.S/p Eylea Injection both eyes on 09/05/2022 - tolerated well. Encounter Details Date Type Department Care Team (Late st Contact Info) Description 10/23/2022 14:00 EDT Office Visit [facility] Ophthalmology - Main [address] [address] Marcial Magaña MD [address] [facility], [address] [place] [address] Social History Tobacco Use Types [...] Progress Notes * Marcial Magaña MD - 10/23/2022 1400 EDT Chief Complaint Patient presents with ??? Injections Pt here for Eylea Injection Right eye f/u Wet AMD both eyes. S/p Eylea Injection both eyes on 09/05/2022 - tolerated well. HPI Injections Comments: Pt here for Eylea Injection Right eye f/u Wet AMD both eyes. S/p Eylea Injection both eyes on 09/05/2022 - tolerated well. Comments Vision stable both eyes. No eye pain or discomfort. No new or different flashes or floaters. Eye drops: none Base Eye Exam Visual Acuity (Snellen - Linear) Right Left Dist sc 20/40 -2 20/20 -1 Dist ph sc NI Tonometry (Applanation, 14:27) Right Left Pressure 15 14 Pupils Dark Light Shape React APD Right 4 3 Round Brisk None Left 4.5 3.5 Round Brisk None Visual Colmenares Right Left Full Full Extraocular Movement Right Left Full Full Neuro/Psych Oriented x3: Yes Mood/Affect: Normal Slit Lamp and Fundus Exam Slit Lamp [...] Findings include pigment epithelial detachment. Notes No SR cysts right Intravitreal Injection, Pharmacologic Agent - OD - Right Eye Time Out 10/23/2022. 15:59. Confirmed correct patient, procedure, site, and patient consented. Anesthesia Topical anesthesia was used. Anesthetic medications included Proparacaine 0.5%, Tetracaine 0.5%. Procedure Preparation included 5% betadine to ocular surface, eyelid speculum. A 30 gauge needle was used. Injection: 2 mg aflibercept 2 mg/0.05 mL Route: intravitreal, Site: Right Eye [facility]: 04326-163-42, Lot: [id number], Expiration date: 05/22/2023 Post-op Post injection exam found visual acuity of at least counting fingers. The patient tolerated the procedure well. There were no complications. The patient received written and verbal post procedure care education. Post injection medications were not given. DIAGNOSES: 1. Exudative age-related macular degeneration of both eyes with active choroidal neovascularization([facility] ([facility]) OCT, RETINA - OU - BOTH EYES INTRAVITREAL INJECTION, PHARMACOLOGIC AGENT - OD - RIGHT EYE aflibercept (EYLEA) intravitreal syringe 2 mg Assessment Wet age-related macular degeneration??both eyes?? Stable vision with occasional rare SR cysts??under Eylea every 7??weeks??right eye Stable vision without fluid under Eylea every 14 weeks left eye Had fluid and vision loss 8 weeks out??right eye. Offer Eylea??right eye and??continue every??7??weeks??for right eye??and 14??weeks for the left. Patient agrees Eylea injection done to right eye today ?? Nuclear??cataract both eyes Not visually significant Observe Return in about 7 weeks (around 12/11/2022) for Mouna both, OCT. I am scribing for Dr. Marcial Magaña MD while he is personally performing the service. Bennett Ott (Scribe) documented in this encounter Plan of Treatment Upcoming Encounters Date Type Department Care Team (Late st Contact Info) Description 07/21/2024 11:00 EDT Office Visit [facility] Ophthalmology - [address] [phone] Marcial Magaña MD [address] [place] [address] [address] [place] [phone] 07/25/2024 11:00 EDT Phlebotomy Only [facility] Hematology & Oncology - [address] [address] Blood Doctor, [facility] Hem Onc 07/25/2024 11:45 EDT Office Visit [facility] Hematology & Oncology [address] [address] Abebe Ralph MD [address] [place] [address], Level [address] [place] [address] 07/25/2024 12:30 EDT Appointment [facility] Hematology & Oncology - [address] [address] 01/03/2025 16:20 EDT Appointment [facility] Breast Imaging Mammography - [address] [phone] documented as of this encounter Procedures Procedure Name Priority Date/Time Associated Diagnosis Comments OCT, RETINA - OU - BOTH EYES Routine 10/23/2022 16:05 EDT Exudative age-related macular degeneration of both eyes with active choroidal neovascularization (HCC-CMS) INTRAVITREAL INJECTION, PHARMACOLOGIC AGENT - OD - RIGHT EYE Routine 10/23/2022 16:05 EDT Exudative age-related macular degeneration of both eyes with active choroidal neovascularization ([facility]) documented in this encounter Results * OCT, RETINA - OU - BOTH EYES (10/23/2022 16:05 EDT) Narrative [facility] OPHTHALMOLOGY - 10/23/2022 16:08 EDT Right Eye Quality was good. Scan locations included subfoveal. Progression has been stable. Findings include pigment epithelial detachment, subretinal fluid. Left Eye Quality was good. Scan locations included juxtafoveal. Progression has been stable. Findings include pigment epithelial detachment. Notes No SR cysts right Marcial Magaña MD OPHTH TOMOGRAPHY Final Result Performing Organization Address [facility] Co de Phone Number [facility] OPHTHALMOLOGY * INTRAVITREAL INJECTION, PHARMACOLOGIC AGENT - OD - RIGHT EYE (10/23/2022 16:05 EDT) Narrative [facility] POINT OF CARE - 10/23/2022 16:09 EDT Time Out 10/23/2022. 15:59. Confirmed correct patient, procedure, site, and patient consented. Anesthesia Topical anesthesia was used. Anesthetic medications included Proparacaine 0.5%, Tetracaine 0.5%. Procedure Preparation included 5% betadine to ocular surface, eyelid speculum. A 30 gauge needle was used. Injection: 2 mg aflibercept 2 mg/0.05 mL ??Route: intravitreal, Site: Right Eye ??[facility]: [id number], Lot: [id number], Expiration date: 05/22/2023 Post-op Post injection exam found visual acuity of at least counting fingers. The patient tolerated the procedure well. There were no complications. The patient received written and verbal post procedure care education. Post injection medications were not given. Marcial Magaña MD OPHTH CLINIC PROCEDURES Final Re sult Performing Organization Address [facility]/ZIP Co de Phone Number [facility] POINT OF CARE documented in this encounter [...] 2 mg 2 mg, intravitreal, Starting on Emy 10/23/22 at 1609, Until Emy 10/23/22 at 1609, RoutineIndications:Exudative age-related macular degeneration of both eyes with active choroidal neovascularization (HCC-CMS) Given 10/23/2022 16:09 EDT 2 mg Right E ye documented in this encounter Orders Medications Ordered That Trevor ht Not Have Been Administered Count Last Ordered Date First Ordered Date aflibercept (EYLEA) intravit real syringe 2 mg 1 10/23/2022 documented in this encounter Eye Exam Visual Acuity (Snellen - Linear) Right eye Left eye Dist sc 20/40 -2 20/20 -1 Dist ph sc NI Tonometry (Applanation, 14:27) Right eye Left eye Pressure 15 14 Pupils Dark Light Shape React APD Right eye 4 3 Round Brisk None Left eye 4.5 3.5 Round Brisk None Visual Colmenares Right eye Left eye Full Full Extraocular Movement Right eye Left eye Full Full Neuro/Psych Oriented x3: Yes Mood/Affect: Normal Slit Lamp Exam Right eye Left eye [...] sions Attached without predisposing lesions Care Teams Career Placement Specialist Relationship Specialty Start Date End Date Millie Hilton MD [address] [place] [phone] PCP - General 01/03/22 Kimi Deleon MD [address] [place] [phone] 05/16/20 Hannah Batres NP [address] [place] [address] 05/16/20 documented as of this encounter
--- OUTSIDE RECORDS SUMMARY | 2024-04-19 08:09 | XMS_ITS | Encounter Summary ---
Author Organization [facility] Address [address] [place] [address] Care Team Providers Care Concrete Vibrator Operator Name Role Phone Kimi Deleon MD Unavailable Hannah Batres NP Unavailable [phone] Millie Hilton MD Primary Care Provider [phone] Reason for Visit * Reason Comments Breast Cancer Encounter Details Date Type Department Care Team (Late st Contact Info) Description 02/17/2022 9:30 EST Office Visit [facility] [address] [place] [id number] Guillermo Sagastume MD [address] [facility], [facility] 2 [place] [address] Malignant neoplasm of upper-outer quadrant [...] when you are drinking? 1 or 2 05/21/202 1 Q3: How often do you have [...] Sign Reading Time Taken Comments Blood Pressure 144/78 02/17/2022 0950 EST Pulse 48 02/17/2022 0950 EST Temperature - - Respiratory Rate - - Oxygen Saturation - - Inhaled Oxygen Concentration - - Weight 69.9 kg (154 lb) 02/17/2022 0950 EST Height - - Body Mass Index 25.85 01/06/2022 1248 EDT documented in this encounter Functional Status [...] documented in this encounter Progress Notes * Guillermo Sagastume MD - 02/17/2022 0930 EST Images from the original note were not included. Division of Radiation Oncology- FOLLOW-UP NOTE Date of Service: 02/17/2022 Diagnosis/Stage: Cancer Staging No matching staging information was found for the patient. Oncology History Malignant neoplasm of upper-outer quadrant of female breast (HCC-CMS) (HCC) 08/09/2019 Initial Diagnosis Malignant neoplasm of upper-outer quadrant of female breast (HCC-CMS) (HCC) - 11/23/2018 Radiation Therapy Com[place] breast [place] [facility] Interval Since Completion of Radiation Therapy: 3 years 2 months Impression: She appears in clinical remission of her right breast cancer now over 3 years from adjuvant radiation. She is tolerating Arimidex and following with Drs. San and Loree. Recommendations: She is due for mammogram in August 2022 I have not scheduled follow-up here and will see her on an as-needed basis. She continues follow-up with Dr. Ralph and Dr. 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 She has a family history of breast cancer in her mother and her sister was diagnosed at age 43. ??? 08/09/2018 screening mammogram at [facility] showed a possible interval development of a superior right breast nodule 08/20/2018 right breast reimaging and ultrasound showed a 1.1 x 0.7 x 0.5cm mass inthe 10:00 right breast with 2 well-circumscribed possible fibroadenomas or nodes. No abnormal lymphnodes were noted. ??? 09/01/2018 ultrasound-guided right breast biopsy by Dr. San showed ER+/SD+/HER-2 negative, grade 2 invasive ductal carcinoma. ??? 09/21/2018 Dr. San's right partial mastectomy with sentinel node biopsy revealed a 1.8cm ductal carcinoma with a total of 4 nodes removed (2 sentinel nodes) in all 4 were negative. There is nolymphovascular invasion and the closest margin was 2 mm. pT1cN0. ??? 10/12/2018. Dr. Otero evaluated her and obtain Oncotype which returned intermediate with a score of 16. In speaking with him today chemotherapy is not recommended. Adjuvant endocrine therapy is planned. ??? Patient is seen today with her and she reports she is without breast discomfort or nipple discharge. She is physically active with gardening and she enjoys walking, hiking, cross-country skiing, snowshoeing, biking and yoga. She does have a history of osteoporosis followed at [facility] rheumatology by Dr. Shaver who recently. ??? She was evaluated by Dr. Adriana Inman at [facility] regarding genetic testing last week and genetic testing is pending. ??? 11/23/18 completed radiation to the right breast. ??? 12/[address] Otero which was not tolerated. ??? 06/10 Femara held in 09/11 ??? 10/11 Arimidex with medical oncology follow up with Dr. Abebe Ralph at [facility]. Interval History: She is seen in the office today. Interval history is significant for in September 2021 she underwent right knee replacement surgery at [facility] by Dr. Sutton. She has significant improvement in pain and she has been able to increase her activities including hiking earlier in January when the weather was warmer. She is now on Arimide which she feels may be associated with some joint and leg pain. She is without breast pain, arm swelling or nipple discharge. As noted below her last mammogram at [facility] was in August and was without suspicious findings. Objective: BP (!) 144/78 (BP Cuff Location: Right arm) Pulse (!) 48 Wt 69.9 kg (154 lb) BMI 25.85 kg/m?? Wt Readings from Last 3 Encounters: 02/05/22 68.9 kg (152 lb) 01/06/22 68.4 kg (150 lb 12.8 oz) 01/06/22 68.6 kg (151 lb 3.2 oz) ECOG performance Status: (0) Fully active, able to carry on all predisease performance without restriction General the patient is in no apparent distress. I palpate no cervical, supraclavicular or axillary adenopathy. The lungs are clear. Cardiac exam reveals regular rate and rhythm. The right breast reveals an upper outer quadrant scar which has very slight dimpling associated with the axillary tail position. There are no breast masses bilaterally. The upper extremities and lower extremities are without edema. Lab Results: Lab Results Component Value Date WBC 5.24 02/05/2022 HGB 12.9 02/05/2022 HCT 39.9 02/05/2022 PLT 260 02/05/2022 ALT 22 02/05/2022 AST 25 02/05/2022 NA 139 02/05/2022 K 4.5 02/05/2022 CL 101 02/05/2022 CREATININE 0.71 02/05/2022 BUN 19 02/05/2022 CO2 29 02/05/2022 Imaging: MA BREAST SCREENING JOE BILATERAL 09/11/2021 11:30 AM ??Technique: Routine 3D tomosynthesis with synthesized 2D views with CAD ??Bilateral Breast Composition: There are scattered areas of fibroglandular density. ??Bilateral Breast Findings: No significant masses, calcifications or other abnormalities are seen.Status post lumpectomy on the right. Findings are stable. ??IMPRESSION Benign, no evidence of malignancy. ??RECOMMENDATION: Routine screening mammography is recommended. ??OVERALL ASSESSMENT: BI-RADS 2: Benign ?? I spent a total of 25 minutes on the date of this encounter meeting with the patient and reviewing documentation/coordinating care as described in the above note. No procedures were performed at the time of the visit. Guillermo Sagastume MD Radiation Oncology-[facility] (p) [phone] / (f) [phone] documented in this encounter Plan of Treatment Upcoming Encounters Date Type Department Care Team (Late st Contact Info) Description 07/21/2024 11:00 EDT Office Visit [facility] Ophthalmology [address] [phone] Marcial Magaña MD [address] [place] [address] 5 [place] [phone] 07/25/2024 11:00 EDT Phlebotomy Only [facility] Hematology & Oncology [address] [phone] Blood Doctor, [facility] Hem Onc 07/25/2024 11:45 EDT Office Visit [facility] Hematology & Oncology [address] [phone] Abebe Ralph MD [address] [place] [address], [facility] [address] [place] [phone] 07/25/2024 12:30 EDT Appointment [facility] Hematology & Oncology [address] [phone] 01/03/2025 16:20 EDT Appointment [facility] Breast Imaging Mammography - [address] [phone] documented as of this encounter Visit Diagnoses Diagnosis Malignant neoplasm of upper-outer quadrant of right breast in female, estrogen receptor positive ([facility])- Primary Encounter for screening mammogram for malignant neoplasm of breast Other screening mammogram documented in this encounter Care Teams Concrete Vibrator Operator Relationship Specialty Start Date End Date Millie Hilton MD 4 [place] [address] PCP - General 01/03/22 Kimi Deleon MD [address] [place] [address] 05/16/20 Hannah Batres NP [address] [place] [address] 05/16/20 documented as of this encounter
--- OUTSIDE RECORDS SUMMARY | 2024-04-19 08:09 | XMS_ITS | Encounter Summary ---
Author Organization [facility] Address [address] [place] [address] Care Team Providers Care Purchasing And Fiscal Clerk Name Role Phone Kimi Deleon MD Unavailable Hannah Batres NP Unavailable [phone] Millie Hilton MD Primary Care Provider [phone] Reason for Visit * Reason Comments Macular Degeneration Encounter Details Date Type Department Care Team (Late st Contact Info) Description 01/27/2023 13:30 EST Office Visit [facility] Ophthalmology - [address] [address] Marcial Magaña MD [address] [employer], [address] [place] [address] Social History Tobacco Use Types [...] Progress Notes * Marcial Magaña MD - 01/27/2023 1330 EST Chief Complaint Patient presents with ??? Macular Degeneration HPI Wet Age related Macular Degeneration of both eyes s/p Eylea both eyes 12/12/22. Every 7 weeks for right eye and 14 weeks for the left. Vision unchanged per pt. Stable. No pain. Base Eye Exam Visual Acuity (Snellen - Linear) Right Left Dist sc 20/30 -2 20/25 +2 Dist ph sc NI Tonometry (Applanation, 13:32) Right Left Pressure 14 14 Pupils Pupils APD Right PERRL - Left PERRL - Neuro/Psych Oriented x3: Yes Mood/Affect: Normal Dilation Both eyes: Tropicamide 1%, Phenylephrine 2.5% @ 13:32 Slit Lamp and Fundus Exam Slit Lamp [...] - OD - Right Eye Time Out 01/27/2023. 14:52. Confirmed correct patient, procedure, site, and patient consented. Anesthesia Topical anesthesia was used. Anesthetic medications included Proparacaine 0.5%, Tetracaine 0.5%. Procedure Preparation included eyelid speculum. A 30 gauge needle was used. Injection: 2 mg aflibercept 2 mg/0.05 mL Route: intravitreal, Site: Right Eye [facility]: 13950-346-23, Lot: [id number], Expiration date: 03/23/2024 Post-op Post injection exam found visual acuity of at least counting fingers. The patient tolerated the procedure well. There were no complications. Post injection medications were not given. IMPRESSION: 1. Exudative age-related macular degeneration of both eyes with active choroidal neovascularization([facility]) OCT, RETINA - OU - BOTH EYES INTRAVITREAL INJECTION, PHARMACOLOGIC AGENT - OD - RIGHT EYE aflibercept (EYLEA) intravitreal syringe 2 mg 2. Nuclear sclerosis of both eyes PLAN: Wet age-related macular degeneration??both eyes?? Stable vision with occasional rare SR cysts??under Eylea every??7??weeks??right eye Stable vision without fluid under Eylea every 14 weeks left eye Had fluid and vision loss 8 weeks out??right eye. Offer Eylea??right eye??and??continue every??7??weeks??for right eye??and 14??weeks for the left. Patient agrees Eylea injection done to right??eye??today ?? Nuclear??cataract both eyes Not visually significant Observe Return in about 6 weeks (around 03/10/2023) for OCT, Eylea, both. I, Marcial Magaña MD, have performed my own history, and have evaluated and examined the patient myself. I am scribing for Marcial Magaña MD while he is personally performing the service. HENRIETTA Smart (Scribe) documented in this encounter Plan of Treatment Upcoming Encounters Date Type Department Care Team (Late st Contact Info) Description 07/21/2024 11:00 EDT Office Visit [facility] Ophthalmology - [address] [phone] Marcial Magaña MD [address] [place] [address], [facility] [address] [place] [phone] 07/25/2024 11:00 EDT Phlebotomy Only [facility] Hematology & Oncology - [address] [address] Blood Doctor, [facility] Hem Onc 07/25/2024 11:45 EDT Office Visit [facility] Hematology & Oncology - [address] [phone] Abebe Ralph MD [address] [place] [address], [address] [place] [phone] 07/25/2024 12:30 EDT Appointment [facility] Hematology & Oncology - [address] [phone] 01/03/2025 16:20 EDT Appointment [facility] Breast Imaging Mammography - [address] [phone] documented as of this encounter Procedures Procedure Name Priority Date/Time Associated Diagnosis Comments OCT, RETINA - OU - BOTH EYES Routine 01/27/2023 14:52 EST Exudative age-related macular degeneration of both eyes with active choroidal neovascularization (HCC-CMS) INTRAVITREAL INJECTION, PHARMACOLOGIC AGENT - OD - RIGHT EYE Routine 01/27/2023 13:30 EST Exudative age-related macular degeneration of both eyes with active choroidal neovascularization (HCC-CMS) documented in this encounter Results * OCT, RETINA - OU - BOTH EYES (01/27/2023 14:52 EST) Narrative [facility] OPHTHALMOLOGY - 01/29/2023 8:06 EST Right Eye Quality was good. Scan locations included subfoveal. Progression has been stable. Findings include pigment epithelial detachment. Left Eye Quality was good. Scan locations included juxtafoveal. Progression has been stable. Findings include pigment epithelial detachment. Notes No fluid Result [facility] Marcial Magaña MD OPH TOMOGRAPHY Final Result Performing Organization Address [facility] de Phone Number [facility] OPHTHALMOLOGY * INTRAVITREAL INJECTION, PHARMACOLOGIC AGENT - OD - RIGHT EYE (01/27/2023 13:30 EST) Narrative [facility] - 01/29/2023 8:06 EST Time Out 01/27/2023. 14:52. Confirmed correct patient, procedure, site, and patient consented. Anesthesia Topical anesthesia was used. Anesthetic medications included Proparacaine 0.5%, Tetracaine 0.5%. Procedure Preparation included eyelid speculum. A 30 gauge needle was used. Injection: 2 mg aflibercept 2 mg/0.05 mL ??Route: intravitreal, Site: Right Eye ??[facility]: [id number], Lot: [id number], Expiration date: 03/23/2024 Post-op Post injection exam found visual acuity of at least counting fingers. The patient tolerated the procedure well. There were no complications. Post injection medications were not given. Result [facility] Marcial Magaña MD [facility] PROCEDURES Final Re sult Performing Organization Address [facility] de Phone Number [facility] documented in this encounter [...] 2 mg 2 mg, intravitreal, Starting on Thu01/27/23 at 1330, Until Thu01/27/23 at 1330, RoutineIndications:Exudative age-related macular degeneration of both eyes with active choroidal neovascularization ([facility]) Given 01/27/2023 13:30 EST 2 mg Right E ye documented in this encounter Orders Medications Ordered That Trevor ht Not Have Been Administered Count Last Ordered Date First Ordered Date aflibercept (EYLEA) intravit real syringe 2 mg 1 01/27/2023 documented in this encounter Eye Exam Visual Acuity (Snellen - Linear) Right eye Left eye Dist sc 20/30 -2 20/25 +2 Dist ph sc NI Tonometry (Applanation, 13:32) Right eye Left eye Pressure 14 14 Pupils Pupils APD Right eye PERRL - Left eye PERRL - Neuro/Psych Oriented x3: Yes Mood/Affect: Normal Dilation Both eyes: Tropicamide 1%, P henylephrine 2.5% @ 13:32 Slit Lamp Exam Right eye Left eye [...] sions Attached without predisposing lesions Care Teams Purchasing And Fiscal Clerk Relationship Specialty Start Date End Date Millie Hilton MD [address] [place] [address] PCP - General 01/03/22 Kimi Deleon MD [address] [place] [phone] 05/16/20 Hannah Batres NP [address] [place] [address] 05/16/20 documented as of this encounter
--- OUTSIDE RECORDS SUMMARY | 2024-04-19 08:09 | XMS_ITS | Encounter Summary ---
Author Organization [facility] Address [address] [place] [address] Care Team Providers Care Watch Dial Stoner Name Role Phone Kimi Deleon MD Unavailable [phone] Hannah Batres NP Unavailable [phone] Millie Hilton MD Primary Care Provider [phone] Reason for Visit * Reason Comments Injections * Episode Based Medications (Routine) - Authorized Specialty Diagnoses / Procedures [facility] To Contact Diagnoses Estrogen receptor positive status (ER+) Other osteoporosis without current pathological fracture Abebe Ralph MD [address] [facility] 2 [place] [address] Phone: tel: fax: [facility] Hematology Oncology [address] [address] Phone: tel: fax: Referral ID Status Reason Start Date Expiration Date V isits Requested Visits Authorized [id number] Authorized 09/09/2021 01/24/2026 5 10 Encounter Details Date Type Department Care Team (Latest Contact Info) Description 08/04/2022 13:06 EDT - 08/04/2022 23:59 EDT Hospital Encounter [facility] Hematology & Oncology [address] [phone] Malignant neoplasm of upper-outer quadrant of right female breast, unspecified estrogen receptor status ([facility]) (Primary Dx); Estrogen receptor positive status (ER+); [...] skin every 6 months. (started 12/16/18 at [facility]) Fish Oil-[place]-3 Fatty Acids 360-1,200 mg capsule 1360mg, 2 [...] in this encounter Progress Notes * Annie Patton, RN - 08/04/2022 1500 EDT Denosumab Injection Note Patient presents for C4D1 of q6 month Denosumab SQ. Seen by Dr. Ralph today, no concerns or questions. Reviewed lab results with patient Chemistry: Lab Results Component Value Date NA 138 08/04/2022 K 4.7 08/04/2022 BUN 18 08/04/2022 CREATININE 0.75 08/04/2022 CALCIUM 9.7 08/04/2022 MG 2.4 08/04/2022 PHOS 3.9 08/04/2022 CrCl 73.584, Calculated Ca 9.38. All parameters met. Reviewed dental history and verified that patient was taking calcium and vitamin D. Denosumab given in LEFT upper arm (see MAR). No complications. Bandaid applied. Educated patient onpossibility of flu-like side effects. Patient verbalized understanding of side effects and knows to call with questions. I was supervised by Dr. Balderas who was readily available in the office suite. ANNIE PATTON RN 08/04/2022 14:46 documented in this encounter Miscellaneous Notes * Addendum Note - Trinity Dunham - 08/04/2022 1500 EDTEncounter addended by: Trinity Dunham on: 08/24/2022 6:27 Actions taken: Charge Capture section accepted documented in this encounter Plan of Treatment Upcoming Encounters Date Type Department Care Team (Late st Contact Info) Description 07/21/2024 11:00 EDT Office Visit [facility] Ophthalmology - [address] [phone] Marcial Magaña MD [address] [place] [address] 5 [place] [phone] 07/25/2024 11:00 EDT Phlebotomy Only [facility] Hematology & Oncology - [address] [phone] Blood Doctor, [facility] Hem Onc 07/25/2024 11:45 EDT Office Visit [facility] Hematology & Oncology [address] [phone] Abebe Ralph MD [address] [place] [address], [address] [place] [phone] 07/25/2024 12:30 EDT Appointment [facility] Hematology & Oncology [address] [phone] 01/03/2025 16:20 EDT Appointment [facility] Breast Imaging Mammography - [address] [phone] documented as of this encounter Visit Diagnoses Diagnosis Malignant neoplasm of upper-outer quadrant of right female breast, unspecified estrogen receptor status ([facility])- Primary Estrogen receptor positive status (ER+) Estrogen [...] mg, subcutaneous, NOW X1, 1 dose, On 08/04/22 at 1515, RoutineIndications:Estrogen receptor positive status (ER+),Other osteoporosis without current pathological fracture Given 08/04/2022 14:54 EDT 60 mg Left Arm documented in this encounter Orders Medications Ordered That Trevor ht Not Have Been Administered Count Last Ordered Date First Ordered Date denosumab (PROLIA) syringe 60 mg 1 08/05/19 Nursing Count Last Ordered Date First Orde red Date INFORMED CONSENT 1 08/04/2022 NURSING COMMUNICATION 1 08/04/2022 Appointment Requests Count Last Ordered Date Fi rst Ordered Date ONCBCN INJECTION APPOINTMENT REQUEST 2 10/202208/04/2022 documented in this encounter Care Teams Watch Dial Stoner Relationship Specialty Start Date End Date Millie Hilton MD [address] [place] [address] PCP - General 01/03/22 Kimi Deleon MD [address] [place] [address] 05/16/20 Hannah Batres NP [address] [place] [address] 05/16/20 documented as of this encounter
--- OUTSIDE RECORDS SUMMARY | 2024-04-19 08:09 | XMS_ITS | Encounter Summary ---
Author Organization [facility] Address [address] [place] [address] Care Team Providers Care Shear Operator Automatic Name Role Phone Kimi Deleon MD Unavailable [phone] Hannah Batres NP Unavailable [phone] Millie Hilton MD Primary Care Provider [phone] Reason for Visit * Reason Comments Follow-up Encounter Details Date Type Department Care Team (Late st Contact Info) Description 08/04/2022 14:15 EDT Office Visit [facility] Cancer Center Hematology & Oncology - [address] [address] Abebe Ralph MD 111 [facility], Level 2 [place] [address] Malignant neoplasm of upper-outer quadrant [...] Sign Reading Time Taken Comments Blood Pressure 167/80 08/04/2022 1348 EDT Pulse 48 08/04/2022 1348 EDT Temperature 36.2 ??C (97.1 ??F) 08/04/2022 1348 EDT Respiratory Rate 14 08/04/2022 1348 EDT Oxygen Saturation 98% 08/04/2022 1348 EDT Inhaled Oxygen Concentration - - Weight 70.6 kg (155 lb 11.2 oz) 08/04/2022 1348 EDT Height 163.4 cm (5' 4.33) 08/04/2022 1348 EDT Body Mass Index 26.45 08/04/2022 1348 EDT documented in this encounter [...] Progress Notes * Abebe Ralph MD - 08/04/2022 1415 EDT Subjective Jeffery Garvey is a 71 y.o. female, who returns in followup for treatment and management of her breast cancer, and other medical problems. Her past medical history, social history, and family history are unchanged from that noted in my prior notes, except as noted below. Problem list: ?? 1. 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 A. 1.8 cm cancer, 0/3 sentinel nodes, grade 2, ER/NV+, HER-2 negative (IHC = 0). LVI negative. [...] in follow-up, continuing on adjuvant Arimidex. She is having some moderate musculoskeletal symptoms at present. Please see our prior notes. Of note her chronic low back pain she feels is definitely better over the last 6 months. However she is noting a greater sense of stiffness and discomfort in primarily her arms, upon awakening first thing in the morning. She feels the symptoms get significantly better within about an hour or so as she is increasingly active during the morning. Her hot flashes have significantly improved, she is no longer on Celexa as well whichshe feels she is doing better with. She has had no breast complaints, she has had no signs or symptoms suggestive of recurrent disease, or any other significant interval illnesses arise. ROS Except as noted above in the HPI, Jeffery Garveys full remaining 10 point review of systems, including constitutional, cardiac, pulmonary, GI, /PAGINATOR, neurologic, musculoskeletal, HEENT, psychiatric, and endocrine, and [...] Pain. ??? aflibercept (EYLEA) 2 mg/0.05 mL 2 mg by intravitreal route once. ??? anastrozole (ARIMIDEX) 1 mg tablet TAKE [...] ??? denosumab 60 mg/mL syringe syringe Inject 60 mg into the skin every 6 months. (started 12/16/18 at [facility]) ??? Fish Oil-[place]-3 Fatty Acids 360-1,200 mg capsule 1360mg, 2 caps by mouth daily ??? GLYCINE ORAL Take 1,500 mg by mouth at bedtime. ??? magnesium glycinate-mag oxide 120 mg magnesium capsule Take 240 mg by mouth 2 times daily. ??? Multivitamins with Minerals tablet tablet Take 1 Tab by mouth daily. (contains calcium 25 mg, vitamin D 1000 iu) ??? vitamin B complex (B COMPLEX 1 ORAL) Take 1 caplet by mouth daily. Vitals: 08/04/22 1348 BP: (!) 167/80 Pulse: (!) 48 Resp: 14 Temp: 36.2 ??C (97.1 ??F) SpO2: 98% Weight: 70.6 kg (155 lb 11.2 oz) Height: 163.4 cm (64.33) Wt Readings from Last 3 Encounters: 08/04/22 70.6 kg (155 lb 11.2 oz) 02/17/22 69.9 kg (154 lb) 02/05/22 68.9 kg (152 lb) Physical Exam Objective: Jeffery Garvey is [...] She has had no breast complaints. She however is feeling increased musculoskeletal symptoms that I think are quite likely attributable to her Arimidex, as described above. We discussed today in some detail number of potential options for this. Of note she does feel that her exercise routine or regularity of exercise has been much less since she was having her knee difficulties and the knee replacement, she thinks this is now recently improving. 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 But we planned is we will continue to see how she does, she will let us know if her symptoms do worsen and we will reevaluate in 3 months. We did review the possibility of proceeding with a trial of Aromasin at that time as well. We will continue ongoing treatment with Prolia. I spent a total of 55 with minutes on the date of this [...] Info) Description 07/21/2024 11:00 EDT Office Visit [facility] Ophthalmology - [address] [id number] Marcial Magaña MD [address] [place] [address], Level 5 [place] [address] 07/25/2024 11:00 EDT Phlebotomy Only [facility] Hematology & Oncology - [address] [address] Blood Doctor, [facility] Hem Onc 07/25/2024 11:45 EDT Office Visit [facility] Hematology & Oncology [address] [address] Abebe Ralph MD 111 [facility], [facility], Level 2 [place] [phone] 07/25/2024 12:30 EDT Appointment [facility] Hematology & Oncology [address] [phone] 01/03/2025 16:20 EDT Appointment [facility] Breast Imaging Mammography - [address] [id number] documented as of this encounter Visit Diagnoses Diagnosis Malignant neoplasm of upper-outer quadrant of right breast in female, estrogen receptor positive ([facility])- Primary Encounter for screening mammogram for malignant neoplasm of breast Other screening mammogram documented in this encounter Care Teams Shear Operator Automatic Relationship Specialty Start Date End Date Millie Hilton MD [address] [place] [address] PCP - General 01/03/22 Kimi Deleon MD [address] [place] [address] 05/16/20 Hannah Batres NP [address] [place], [place] [address] 05/16/20 documented as of this encounter
--- OUTSIDE RECORDS SUMMARY | 2024-04-19 08:09 | XMS_ITS | Encounter Summary ---
Author Organization [facility] Address [address] [place] [address] Care Team Providers Care Fulling Mill Operator Name Role Phone Kimi Deleon MD Unavailable Hannah Batres NP Unavailable [phone] Millie Hilton MD Primary Care Provider [phone] Reason for Visit * Reason Comments Medications Refill Encounter Details Date Type Department Care Team (Late st Contact Info) Description 02/28/2022 Refill [facility] Cancer Center Hematology & Oncology - [address] [address] Abebe Ralph MD 111 [facility], [address] [place] [address] Medications Refill Social History Tobacco [...] Refills Last Filled Start Date End Date citalopram (CELEXA) 10 mg tabletIndications: Malignant neoplasm of upper-outer quadrant of right breast in female, estrogen receptor positive (HCC-CMS) TAKE 1 TABLET BY MOUTH AT BEDTIME 30 Tablet 2 02/28/2022 4 documented in this encounter Miscellaneous Notes * Telephone Encounter - Nancy Em RN - 02/28/2022 1007 EST Citalopram refilled per Dr. Ralph's September 2021 note. documented in this encounter Plan of Treatment Upcoming Encounters Date Type Department Care Team (Late st Contact Info) Description 07/21/2024 11:00 EDT Office Visit [facility] Ophthalmology [address] [phone] Marcial Magaña MD [address] [place] [address], Level 5 [place] [address] 07/25/2024 11:00 EDT Phlebotomy Only [facility] Hematology & Oncology [address] [address] Blood Doctor, [facility] Hem Onc 07/25/2024 11:45 EDT Office Visit [facility] Hematology & Oncology - [address] [address] Abebe Ralph MD 111 [facility], [facility], Level 2 [place] [address] 07/25/2024 12:30 EDT Appointment [facility] Hematology & Oncology - [address] [phone] 01/03/2025 16:20 EDT Appointment [facility] Breast Imaging Mammography - [address] [address] documented as of this encounter Visit Diagnoses Diagnosis Malignant neoplasm of upper-outer quadrant of right breast in female, estrogen receptor positive (HCC-CMS)- Primary Encounter for screening mammogram for malignant neoplasm of breast Other screening mammogram documented in this encounter Discontinued Medications Medication Sig Discontinue Reason Start Date End Da te citalopram (CELEXA) 10 mg tabletIndications:Malign ant neoplasm of upper-outer quadrant of right breast in female, estrogen receptor positive (HCC-CMS) TAKE 1 TABLET BY MOUTH AT BEDTIME 12/01/2021 02/28/2022 documented as of this encounter Care Teams Fulling Mill Operator Relationship Specialty Start Date End Date Millie Hilton MD [address] [place], [place] [address] PCP - General 01/03/22 Kimi Deleon MD [address] [place] [phone] 05/16/20 Hannah Batres NP [address] [place], [place] [address] 05/16/20 documented as of this encounter
--- OUTSIDE RECORDS SUMMARY | 2024-04-19 08:09 | XMS_ITS | Encounter Summary ---
Author Organization [facility] Address [address] [place] [address] Care Team Providers Care Background Check Coordinator Name Role Phone Kimi Deleon MD Unavailable Hannah Batres NP Unavailable [phone] Millie Hilton MD Primary Care Provider [phone] Reason for Visit * Reason Onset Date Comments Returning Call 01/26/2023 Encounter Details Date Type Department Care Team (Late st Contact Info) Description 01/26/2023 Telephone [facility] Cancer Center Hematology & Oncology - [facility] [address] [place] [address] Abebe Ralph MD 111 [facility] 2 [place] [address] Returning Call Social History Tobacco Use Types Packs/Day Years [...] * Telephone Encounter - Tien Maier - 01/27/2023 1051 EST Spoke with pt she is aware labs all set she said has been back and forth with nurse left PAC# * Telephone Encounter - Jeffery Dang - 01/26/2023 1120 EST Patient called back asking to speak with Tien with further questions regarding labs. Please documented in this encounter Plan of Treatment Upcoming Encounters Date Type Department Care Team (Late st Contact Info) Description 07/21/2024 11:00 EDT Office Visit [facility] Ophthalmology [address] [phone] Marcial Magaña MD [address] [place] [address], Level [address] [place] [address] 07/25/2024 11:00 EDT Phlebotomy Only [facility] Hematology & Oncology [address] [phone] Blood Doctor, [facility] Hem Onc 07/25/2024 11:45 EDT Office Visit [facility] Hematology & Oncology - [address] [phone] Abebe Ralph MD 111 [facility], Level [address] [place] [phone] 07/25/2024 12:30 EDT Appointment [facility] Hematology & Oncology [address] [address] 01/03/2025 16:20 EDT Appointment [facility] Breast Imaging Mammography - [address] [phone] documented as of this encounter Visit Diagnoses Not on filedocumented in this encounter Care Teams Background Check Coordinator Relationship Specialty Start Date End Date Millie Hilton MD [address] [place] [address] PCP - General 01/03/22 Kimi Deleon MD [address] [place] [address] 05/16/20 Hannah Batres NP [address] [place] [address] 05/16/20 documented as of this encounter
--- OUTSIDE RECORDS SUMMARY | 2024-04-19 08:10 | XMS_ITS | Encounter Summary ---
Author Organization [facility] Address [address] [place] [address] Care Team Providers Care Corporate Relations Director Name Role Phone Skye Hernandez Faiza Primary Care Provider [phone] Kimi Deleon MD Unavailable [phone] Hannah Batres NP Unavailable Reason for Visit * Episode Based Medications (Routine) - Authorized Specialty Diagnoses / Procedures [facility] Referred To Contact Diagnoses Estrogen receptor positive status (ER+) Other osteoporosis without current pathological fracture Abebe Ralph MD 111 [facility] [place] [facility] 2 [place] [address] Phone: tel: fax: [facility] Hematology Oncology [address] [address] Phone: tel: fax: Referral ID Status Reason Start Date Expiration Date V isits Requested Visits Authorized [id number] Authorized 09/09/2021 01/24/2026 5 10 Encounter Details Date Type Department Care Team (Latest Contact Info) Description 09/11/2021 13:06 EDT - 09/11/2021 23:59 EDT Hospital Encounter [facility] Hematology Oncology [address] [address] Estrogen receptor positive status (ER+) (Primary Dx); [...] skin every 6 months. (started 12/16/18 at [facility]) Fish Oil-[place]-3 Fatty Acids 360-1,200 mg capsule 1360mg, 2 [...] ORAL) Take 1 caplet by mouth daily. cholecalciferol, Vitamin D3, 1,000 unit tablet Take 4,000 Units by mouth daily. 4 citalopram (CELEXA) 10 mg tabletIndication s:Malignant neoplasm of upper-outer quadrant of right breast in female, estrogen receptor positive (HCC-CMS) TAKE 1 TABLET BY MOUTH AT BEDTIME 30 Tablet 2 08/23/2021 2 letrozole (FEMARA) 2.5 mg tablet TAKE 1 TABLET BY MOUTH DAILY 90 Tablet 4 07/24/2021 2 multivitamin (NEPHROVITE) 0.8 mg tablet Take 1 Tablet by mouth at bedtime. 2 documented as of this encounter Discharge Disposition Disposition Code Departure Means Destination Home or Self Care documented in this encounter Progress Notes * Trinh Hernandez RN - 09/11/2021 1400 EDT Not seen in Short Stay today. TRINH HERNANDEZ RN documented in this encounter Plan of Treatment Upcoming Encounters Date Type Department Care Team (Late st Contact Info) Description 07/21/2024 11:00 EDT Office Visit [facility] Ophthalmology - [address] [phone] Marcial Magaña MD [address] [place] [address], Level [address] [place] [phone] 07/25/2024 11:00 EDT Phlebotomy Only [facility] Hematology & Oncology [address] [address] Blood Doctor, [facility] Hem Onc 07/25/2024 11:45 EDT Office Visit [facility] Hematology & Oncology [address] [address] Abebe Ralph MD 111 [facility], [facility], Level [address] [place] [phone] 07/25/2024 12:30 EDT Appointment [facility] Cancer Center Hematology & Oncology - [address] [address] 01/03/2025 16:20 EDT Appointment [facility] Breast Imaging Mammography - [address] [address] documented as of this encounter Visit Diagnoses Diagnosis Estrogen receptor positive status (ER+)- Primary Estrogen receptor positive status [ER+] Other osteoporosis without current pathological fracture Encounter for screening mammogram for malignant neoplasm of breast Other screening mammogram documented in this encounter Orders Appointment Requests Count Last Ordered Date Fi rst Ordered Date ONCBCN INJECTION APPOINTMENT REQUEST 2 07/2109/11/2021 documented in this encounter Care Teams Corporate Relations Director Relationship Specialty Start Date End Date Skye Hernandez [address] [place] [address] PCP - General 08/11/18 01/02/22 Kimi Deleon MD [address] [place] [address] 05/16/20 Hannah Batres NP [address] [place] [address] 05/16/20 documented as of this encounter
--- OUTSIDE RECORDS SUMMARY | 2024-04-19 08:10 | XMS_ITS | Encounter Summary ---
Author Organization [facility] Address [address] [place] [address] Care Team Providers Care Fur Coat Sewer Name Role Phone Skye Hernandez Primary Care Provider Kimi Deleon MD Unavailable Hannah Batres NP Unavailable [phone] Encounter Details Date Type Department Care Team (Late st Contact Info) Description 10/11/2021 Documentation Visit [facility] Cancer Center Hematology & Oncology - [facility] [address] [place] [address] Abebe Ralph MD 111 [facility], Level 2 [place] [address] Social History Tobacco Use Types [...] documented in this encounter Progress Notes * Larry De La Rosa - 10/11/2021 1131 EDT Left patient a message for coordinated appts on 01/06 Dexa bone scan at [facility] at 12:50 then [facility] HemOnc w/Dr. Hudson and labs in clinic. Requested call back to confirm appts documented in this encounter Plan of Treatment Upcoming Encounters Date Type Department Care Team (Late st Contact Info) Description 07/21/2024 11:00 EDT Office Visit [facility] Ophthalmology [address] [phone] Marcial Magaña MD [address] [place] [address], Level [address] [place] [phone] 07/25/2024 11:00 EDT Phlebotomy Only [facility] Hematology & Oncology [address] [phone] Blood Doctor, [facility] Hem Onc 07/25/2024 11:45 EDT Office Visit [facility] Hematology & Oncology [address] [phone] Abebe Ralph MD 111 [facility], [facility], Level [address] [place] [address] 07/25/2024 12:30 EDT Appointment [facility] Cancer Center Hematology & Oncology - [address] [address] 01/03/2025 16:20 EDT Appointment [facility] Breast Imaging Mammography - [address] [address]40[address] documented as of this encounter Visit Diagnoses Not on filedocumented in this encounter Care Teams Fur Coat Sewer Relationship Specialty Start Date End Date Skye Hernandez [address] [place] [address] PCP - General 08/11/18 01/02/22 Kimi Deleon MD [address] [place] [address] 05/16/20 Hannah Batres NP [address] [place] [address] 05/16/20 documented as of this encounter
--- OUTSIDE RECORDS SUMMARY | 2024-04-19 08:10 | XMS_ITS | Encounter Summary ---
Author Organization [facility] Address [address] [place] [address] Care Team Providers Care Paper Gluing Operator Name Role Phone Skye Hernandez Primary Care Provider [phone] Kimi Deleon MD Unavailable [phone] Hannah Batres NP Unavailable [phone] Reason for Visit * Reason Onset Date Comments Follow-up 08/30/2021 Encounter Details Date Type Department Care Team (Late st Contact Info) Description 08/30/2021 Telephone [facility] Surgical Oncology - [address] [address] Maddie Bobby RN Follow-up Social History Tobacco Use Types Packs/Day Years [...] encounter Miscellaneous Notes * Telephone Encounter - Maddie Bobby RN - 08/30/2021 1610 EDT Discussed patient lumbar pain with Dr. Ralph, called patient to see if it continues. If worse or new symptoms Dr. Ralph would like images prior to next fur. documented in this encounter Plan of Treatment Upcoming Encounters Date Type Department Care Team (Late st Contact Info) Description 07/21/2024 11:00 EDT Office Visit [facility] Ophthalmology - [address] [phone] Marcial Magaña MD [address] [place] [address] 5 [place] [phone] 07/25/2024 11:00 EDT Phlebotomy Only [facility] Hematology & Oncology - [address] [phone] Blood Doctor, [facility] Hem Onc 07/25/2024 11:45 EDT Office Visit [facility] Hematology & Oncology [address] [phone] Abebe Ralph MD [address] [place] [address], Level [address] [place] [address] 07/25/2024 12:30 EDT Appointment [facility] Cancer Center Hematology & Oncology - [address] [address] 01/03/2025 16:20 EDT Appointment [facility] Breast Imaging Mammography - [address] [phone] documented as of this encounter Visit Diagnoses Not on filedocumented in this encounter Care Teams Paper Gluing Operator Relationship Specialty Start Date End Date Skye Hernandez [address] [place] [address] PCP - General 08/11/18 01/02/22 Kimi Deleon MD [address] [place] [address] 05/16/20 Hannah Batres NP [address] [place] [address] 05/16/20 documented as of this encounter
--- OUTSIDE RECORDS SUMMARY | 2024-04-19 08:10 | XMS_ITS | Encounter Summary ---
Author Organization [facility] Address [address] [place] [address] Care Team Providers Care Road Design Draftsperson Name Role Phone Kimi Deleon MD Unavailable Hannah Batres NP Unavailable [phone] Millie Hilton MD Primary Care Provider Reason for Visit * Reason Comments Follow-up Encounter Details Date Type Department Care Team (Late st Contact Info) Description 01/06/2022 14:45 EDT Office Visit [facility] Cancer Center Hematology & Oncology - [address] [address] Abebe Ralph MD 111 [facility], Level 2 [place] [address] Malignant neoplasm of upper-outer quadrant [...] Sign Reading Time Taken Comments Blood Pressure 147/73 01/06/2022 1358 EDT Pulse 51 01/06/2022 1358 EDT Temperature 35.9 ??C (96.6 ??F) 01/06/2022 1358 EDT Respiratory Rate - - Oxygen Saturation 100% 01/06/2022 1358 EDT Inhaled Oxygen Concentration - - Weight 68.4 kg (150 lb 12.8 oz) 01/06/2022 1358 EDT Height - - Body Mass Index 25.31 01/06/2022 1248 EDT documented in this encounter [...] Progress Notes * Abebe Ralph MD - 01/06/2022 1445 EDT Subjective Jeffery Garvey is a 71 [...] cm cancer, 0/3 sentinel nodes, grade 2, ER/[place]+, HER-2 negative (IHC = 0). LVI negative. [...] 10/11. HPI: Jeffery Garvey returns in follow-up, now on adjuvant Arimidex. As noted above she began this in late September. She is having some modest musculoskeletal symptoms, joint stiffness, associated with this, but she thinks overall much less than what she was noting while on Femara. She does note howeverthat the symptoms on Femara did gradually worsen quite a bit over time as she took it longer longer. In any case she does feel she is tolerating Arimidex relatively well at present. She has been noticing symptoms of vaginal atrophy. She additionally has been noting ongoing fatigue which has been moderately longstanding. She does feel like she has recuperated pretty well from her knee replacement this past September and is exercising much more regularly now, as well. ROS Except as noted above in the HPI, Jeffery Garveys full remaining 10 point review of systems, including constitutional, cardiac, pulmonary, GI, /TRUANT OFFICER, neurologic, musculoskeletal, HEENT, psychiatric, and endocrine, and [...] once. ??? anastrozole (ARIMIDEX) 1 mg tablet Take 1 Tablet by mouth daily for 90 days. ??? calcium carbonate/vitamin D3 (CALCIUM 500 + D ORAL) Take 1 caplet by mouth 2 times daily. ??? cholecalciferol, Vitamin D3, 1,000 unit tablet Take 4,000 Units by mouth daily. ??? citalopram (CELEXA) 10 mg tablet TAKE 1 TABLET BY MOUTH AT BEDTIME ??? denosumab 60 mg/mL syringe syringe Inject 60 mg into the skin every 6 months. (started 12/16/18 at [facility]) ??? Fish Oil-[facility]-3 Fatty Acids (FISH OIL) 360-1,200 mg capsule 1360mg, 2 caps by mouth daily ??? GLYCINE ORAL Take 1,500 mg by mouth at bedtime. ??? letrozole (FEMARA) 2.5 mg tablet TAKE 1 TABLET BY MOUTH DAILY ??? magnesium glycinate-mag oxide 120 mg magnesium capsule Take 240 mg by mouth 2 times daily. ??? multivitamin (NEPHROVITE) 0.8 mg tablet Take 1 Tablet by mouth at bedtime. ??? Multivitamins with Minerals tablet tablet Take 1 Tab by mouth daily. (contains calcium 25 mg, vitamin D 1000 iu) ??? vitamin B complex (B COMPLEX 1 ORAL) Take 1 caplet by mouth daily. Vitals: 01/06/22 1358 BP: (!) 147/73 Pulse: 51 Temp: 35.9 ??C (96.6 ??F) TempSrc: Skin SpO2: 100% Weight: 68.4 kg (150 lb 12.8 oz) Wt Readings from Last 3 Encounters: 01/06/22 68.4 kg (150 lb 12.8 oz) 01/06/22 68.6 kg (151 lb 3.2 oz) 10/11/21 68.9 kg (151 lb 12.8 oz) Physical Exam Objective: Jeffery Garvey is [...] edema. Lab Results Component Value Date WBC 5.67 01/03/2022 HGB 13.3 01/03/2022 HCT 40.0 01/03/2022 MCV 92 01/03/2022 PLT 269 01/03/2022 NEUTROABS 3.26 01/03/2022 CALCIUM 9.7 01/03/2022 CO2 25 01/03/2022 AST 24 01/03/2022 ALT 18 01/03/2022 TBIL <0.5 01/03/2022 CREATININE 0.67 01/03/2022 CALCCA 9.3 09/03/2020 ANIONGAP 11 01/03/2022 TP 7.4 01/03/2022 K 4.7 01/03/2022 ALKPHOS 65 01/03/2022 LABALBU 4.5 01/03/2022 BUN 12 01/03/2022 CALCGFR 92 01/03/2022 CL 104 01/03/2022 SERGLU 107 (H) 01/03/2022 NA 140 01/03/2022 Imaging Assessment & Plan Jeffery Garvey returns in follow-up, as above. She overall is doing well in regards to her breast cancer, with no signs or symptoms suggestive of recurrent disease. She has had no breast complaints. She is had no significant interval illnesses arise. There are couple of ongoing issues however,as above. Firstly she does have symptoms of modest vaginal atrophy. She has been trying some nonhormonal vaginal lubricants which possibly helped a bit. I recommend that she see her primary care physician, Dr. Hilton, who also provides her TRUANT OFFICER care and have a full TRUANT OFFICER exam for further evaluation. If she does have findings of significant vaginal atrophy on exam a would not recommend proceeding with vaginal estrogen cream. However an option to consider would be proceeding with the Estring, with which there is pretty good data demonstrating only a modest increase in plasma estrogen levels, unlike the substantial absorption of estrogen into the bloodstream with older vaginal creams. DEXA scan was done earlier today, results are pending, would put her Prolia on hold subsequent to her knee surgery this past summer but will get this tentatively rescheduled. She is having some modest musculoskeletal symptoms as noted above but they are intolerable now on Arimidex. Finally she was quite worried about her fasting glucose which was minimally elevated, I recommend that she speak further withDr. Hilton about this as well but I reassured her about this. Of note she did have some food about 01/31/1930 the night prior to the fasting labs. I spent a total of 50 minutes on the date of this encounter [...] Info) Description 07/21/2024 11:00 EDT Office Visit [facility] Ophthalmology - [address] [address] Marcial Magaña MD 111 [facility], [facility] 5 [place] [phone] 07/25/2024 11:00 EDT Phlebotomy Only [facility] Hematology & Oncology [address] [address] Blood Doctor, [facility] Hem Onc 07/25/2024 11:45 EDT Office Visit [facility] Hematology & Oncology [address] [phone] Abebe Ralph MD [address] [place] [address], [facility] 2 [place] [phone] 07/25/2024 12:30 EDT Appointment [facility] Hematology & Oncology [address] [phone] 01/03/2025 16:20 EDT Appointment [facility] Breast Imaging Mammography - [address] [phone] documented as of this encounter Visit Diagnoses Diagnosis Malignant neoplasm of upper-outer quadrant of right breast in female, estrogen receptor positive ([facility])- Primary Encounter for screening mammogram for malignant neoplasm of breast Other screening mammogram documented in this encounter Care Teams Road Design Draftsperson Relationship Specialty Start Date End Date Millie Hilton MD 4 [place], [place] [address] PCP - General 01/03/22 Kimi Deleon MD [address] [place] [phone] 05/16/20 Hannah Batres NP [address] [place] [address] 05/16/20 documented as of this encounter
--- OUTSIDE RECORDS SUMMARY | 2024-04-19 08:10 | XMS_ITS | Encounter Summary ---
Author Organization [facility] Address [address] [place] [address] Care Team Providers Care Shirt Marker Name Role Phone Kimi Deleon MD Unavailable [phone] Hannah Batres NP Unavailable [phone] Millie Hilton MD Primary Care Provider [phone] Reason for Visit * Reason Onset Date Comments Appointment Related 01/07/2022 Encounter Details Date Type Department Care Team (Late st Contact Info) Description 01/07/2022 Telephone [facility] Cancer Center Hematology & Oncology - [facility] [address] [place] [address] Abebe Ralph MD 111 [facility] 2 [place] [address] Appointment Related Social History Tobacco [...] * Telephone Encounter - Tien Maier - 01/07/2022 1045 EDT Pt wanted to move 02/05 appt to later did let her know right now we dont have anything later. She asked if we can do /2 did let her know /2 I only have a early am appt and would have to ask team if this is ok? She said she cant do that early left appt as is left PAC# * Telephone Encounter - Ruthann Mayers - 01/07/2022 0944 EDT Patient is calling back to speak to Tien about an appointment. Caller did not provide any other information. documented in this encounter Plan of Treatment Upcoming Encounters Date Type Department Care Team (Late st Contact Info) Description 07/21/2024 11:00 EDT Office Visit [facility] Ophthalmology - [address] [phone] Marcial Magaña MD 111 [facility], Level 5 [place] [address] 07/25/2024 11:00 EDT Phlebotomy Only [facility] Hematology & Oncology [address] [address] Blood Doctor, [facility] Hem Onc 07/25/2024 11:45 EDT Office Visit [facility] Hematology & Oncology [address] [phone] Abebe Ralph MD [address] [place] [address], Level 2 [place] [phone] 07/25/2024 12:30 EDT Appointment [facility] Hematology & Oncology [address] [phone] 01/03/2025 16:20 EDT Appointment [facility] Breast Imaging Mammography [address] [address] documented as of this encounter Visit Diagnoses Not on filedocumented in this encounter Care Teams Shirt Marker Relationship Specialty Start Date End Date Millie Hilton MD [address] [place] [address] PCP - General 01/03/22 Kimi Deleon MD [address] [place] [phone] 05/16/20 Hannah Batres NP [address] [place], [place] [address] 05/16/20 documented as of this encounter
--- OUTSIDE RECORDS SUMMARY | 2024-04-19 08:10 | XMS_ITS | Encounter Summary ---
Author Organization [facility] Address [address] [place] [address] Care Team Providers Care Document Control Clerk Name Role Phone Kimi Deleon MD Unavailable [phone] Hannah Batres NP Unavailable [phone] Millie Hilton MD Primary Care Provider [phone] Reason for Referral * Radiology Services (Routine/Next Available) - Authorization Not Required Specialty Diagnoses / Procedures Referred By [facility] Referred To Contact Diagnoses Malignant neoplasm of upper-outer quadrant of right breast in female, estrogen receptor positive (HCC-CMS) Left-sided low back pain without sciatica, unspecified chronicity Procedures XR LUMBAR SPINE 2-3 VIEWS Xena Nieves PA-C Phone: tel: fax: [facility] Referral ID Status Reason Start Date Expiration Date Visits Requested Visits Authorized [id number] Authorization Not Required 2 1 1 Reason for Visit * Reason Comments Follow-up Injections Encounter Details Date Type Department Care Team (Late st Contact Info) Description 02/05/2022 11:30 EST Office Visit [facility] Cancer Center Hematology & Oncology - [address] [phone] Xena Nieves PA-C 111 [facility] 2 [place] [phone] Malignant neoplasm of upper-outer quadrant of right breast in female, estrogen receptor positive (HCC-CMS) (Primary Dx); Left-sided low back pain without sciatica, unspecified chronicity; Depressed mood Social History Tobacco Use Types Packs/Day Years [...] Sign Reading Time Taken Comments Blood Pressure 160/73 02/05/2022 1120 EST Pulse 46 02/05/2022 1120 EST Temperature 36 ??C (96.8 ??F) 02/05/2022 1120 EST Respiratory Rate 16 02/05/2022 1120 EST Oxygen Saturation 100% 02/05/2022 1120 EST Inhaled Oxygen Concentration - - Weight 68.9 kg (152 lb) 02/05/2022 1120 EST Height - - Body Mass Index 25.51 01/06/2022 1248 EDT documented in this encounter [...] Progress Notes * Xena Nieves PA-C - 02/05/2022 1130 EST Jeffery Garvey is a 71 y.o.yo female presenting in clinic today for regular follow up of breast cancer, and symptom assessment on aromatase inhibitor Also due for Prolia today. Chief Complaint Patient presents with ??? Follow-up ??? Injections Problem list: ?? 1. 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 ?A. ??1.8 cm cancer, 0/3 sentinel nodes, grade 2, ER/UT+, HER-2 negative (IHC = 0). ??LVI negative.?Onco-DX = 16. ?B. ??S/B WL is/XRT, 12/09. ?C. ??Adjuvant tamoxifen, 12/09. 1. Severe ongoing vasomotor symptoms. 2. Celexa, ongoing. D. Adjuvant femara, 06/10. 1. Rx hold, 09/11. E. Adjuvant Arimidex, 10/11. F. Family history of breast CA (sister age 43, mother age 72). 20 gene panel through [facility] negative. ?? 2. ??Osteoporosis. ?A. ??Prior therapy with alendronate ??>>??poor tolerance. ?B. ??2-year course of Forteo, completed 09/08. ?C. ??Prolia, 12/09. ?? 3. ??Macular degeneration, wet. ?A. ??Ongoing treatment >>??a flu percept. ?? 4. DJD, right knee. A. S/p partial knee replacement, 10/11. SUBJECTIVE: Jeffery returns to resume Prolia. She saw Dr Ralph last month. Due to knee surgery he delayed Prolia. She tolerates these injections without clear side effects. She does continue to feelgenerally stiff and sore on anastrozole, indicating shoulders, back, hands and lower legs. Her backpain does make her a little anxious, given her cancer history, and her younger sister who of me tastatic breast cancer. It does wax and wane to some degree, and is worse with prolonged sitting. No radiation into her legs. It is not curtailing her activities; she remains active, hiking regularly. She is very pleased with the outcome of her knee surgery, with much reduction of pain. She met with her PCP not long ago, and they discussed her mood, which has been more down lately. She is interested in pursuing counseling, and I offered the option of establishing with one of the Cancer Center counselors and she would be interested in doing so. REVIEW OF SYSTEMS: I went through a verbal review of symptoms with the patient. Symptoms as discussed above. No breast concerns today. Mild fatigue. Ongoing vaginal dryness, and considering Estring as discussed with Dr. Ralph. No cough or dyspnea. No ankle swelling. Remainder of system review is without acute complaints. Past medical, surgical, family and social history reviewed and updated. , lives in [place]. Objective: BP (!) 160/73 Pulse (!) 46 Temp 36 ??C (96.8 ??F) (Skin) Resp 16 Wt 68.9 kg (152 lb) [id number]% BMI 25.51 kg/m?? General appearance: alert, no distress Head: Normocephalic, without obvious abnormality, atraumatic Neurologic: Grossly normal Mental Status: mood and affect appropriate, speech and thought process intact IMAGING: I reviewed reports from the most recent mammogram and DEXA. ASSESSMENT: Breast cancer, with diagnosis and therapy as documented above. This was a node-negativemoderately differentiated invasive tumor, ER/UT positive and HER2 negative. Jeffery underwent surgery and radiation, initially took tamoxifen, then letrozole, with side effects with both drugs. She iscurrently is on anastrozole and seems to be tolerating it a bit better. She does note some persistent low back pain. She is up-to-date with imaging and surveillance and without clinical evidence of recurrence or new malignancy. PLAN: 1. Continue daily anastrozole. Discussed trying naproxen to address general arthralgia on AI. 2. Denosumab today and ongoing every 6 months. 3. Lumbosacral x-ray to assess low back. If this pain persists or worsens further imaging would potentially be merited. Assuming no worrisome findings on x-ray, advised to consider PT. 4. Given mood concerns, referral to one of the cancer center counselors. 5. Routine surveillance with breast surgery each October (Dr. San), with mammography around August of each year. 6. Follow-up in 6 months for return visit with Dr. Ralph, labs and ongoing denosumab, sooner withacute concerns or questions. I was directly supervised by Ivonne Killian MD, who was in the suite and immediately available for the entire time the above documented service was provided. I spent a total of 40 minutes on the date of this encounter meeting with the patient and reviewing documentation/coordinating care as described in the above note. No procedures were performed at the time of the visit. Xena Nieves PA-C 02/05/2022 12:23 documented in this encounter Plan of Treatment Upcoming Encounters Date Type Department Care Team (Late st Contact Info) Description 07/21/2024 11:00 EDT Office Visit [facility] Ophthalmology [address] [phone] Marcial Magaña MD [address] [place] [address], Level [address] [place] [phone] 07/25/2024 11:00 EDT Phlebotomy Only [facility] Hematology & Oncology [address] [phone] Blood Doctor, [facility] Hem Onc 07/25/2024 11:45 EDT Office Visit [facility] Hematology & Oncology - [address] [address] Abebe Ralph MD 111 [facility], [facility], Level [address] [place] [phone] 07/25/2024 12:30 EDT Appointment [facility] Hematology & Oncology [address] [address] 01/03/2025 16:20 EDT Appointment [facility] Breast Imaging Mammography - [address] [address]80[address] documented as of this encounter Results * XR LUMBAR SPINE [...] REGARDING THIS REPORT PLEASE CALL [facility] AT [phone] Narrative 02/05/2022 14:32 EST PROCEDURE INFORMATION: Exam: [...] CONCERNS REGARDING THIS REPORT PLEASE CALL [facility] [phone] Xena Nieves PA-C [facility] OR DERABLES Final Result documented in this encounter Visit Diagnoses Diagnosis Malignant neoplasm of upper-outer quadrant of right breast in female, estrogen receptor positive (HCC-CMS)- Primary Left-sided low back pain without sciatica, unspecified chronicity Depressed mood Malignant neoplasm of upper-outer quadrant of right breast in female, estrogen receptor positive (HCC-CMS) Left-sided low back pain without sciatica, unspecified chronicity Encounter for screening mammogram for malignant neoplasm of breast Other screening mammogram documented in this encounter Discontinued Medications Medication Sig Discontinue Reason Start Date End Da te letrozole (FEMARA) 2.5 mg tablet TAKE 1 TABLET BY MOUTH DAILY 07/24/2021 02/05/2022 multivitamin (NEPHROVITE) 0.8 mg tablet Take 1 Tablet by mouth at bedtime. 02/05/2022 documented as of this encounter Historical Medications * This list may reflect changes made after this encounter. ANASTROZOLE ORAL Take by mouth. 06/30/2023 added in this encounter Care Teams Document Control Clerk Relationship Specialty Start Date End Date Millie Hilton MD [address] [place] [address] PCP - General 01/03/22 Kimi Deleon MD [address] [place] [phone] 05/16/20 Hannah Batres NP [address] [place] [address] 05/16/20 documented as of this encounter
--- OUTSIDE RECORDS SUMMARY | 2024-04-19 08:10 | XMS_ITS | Encounter Summary ---
Author Organization [facility] Address [address] [place] [address] Care Team Providers Care Cable Technician Name Role Phone Skye Hernandez Primary Care Provider Kimi Deleon MD Unavailable [phone] Hannah Batres NP Unavailable [phone] Reason for Visit * Reason Comments Other Encounter Details Date Type Department Care Team (Late st Contact Info) Description 08/23/2021 [facility] Cancer Center Hematology & Oncology - [facility] [address] [place] [address] Abebe Ralph MD 111 [facility], Level 2 [place] [address] Other Social History Tobacco Use Types Packs/Day Years [...] AT BEDTIME 30 Tablet 2 08/23/2021 2 documented in this encounter Plan of Treatment Upcoming Encounters Date Type Department Care Team (Late st Contact Info) Description 07/21/2024 11:00 EDT Office Visit [facility] Ophthalmology [address] [phone] Marcial Magaña MD [address] [place] [address] 5 [place] [address] 07/25/2024 11:00 EDT Phlebotomy Only [facility] Hematology & Oncology [address] [phone] Blood Doctor, [facility] Hem Onc 07/25/2024 11:45 EDT Office Visit [facility] Hematology & Oncology [address] [phone] Abebe Ralph MD [address] [place] [address], [facility] 2 [place] [address] 07/25/2024 12:30 EDT Appointment [facility] Cancer Center Hematology & Oncology - [address] [address] 01/03/2025 16:20 EDT Appointment [facility] Breast Imaging Mammography - [address] [address] documented as of this encounter Visit Diagnoses [...] TAKE 1 TABLET BY MOUTH AT BEDTIME 05/27/2021 08/23/2021 documented as of this encounter Care Teams Cable Technician Relationship Specialty Start Date End Date Skye Hernandez [address] [place] [address] PCP - General 08/11/18 01/02/22 Kimi Dleeon MD [address] [place] [address] 05/16/20 Hannah Batres NP [address] [place] [address] 05/16/20 documented as of this encounter
--- OUTSIDE RECORDS SUMMARY | 2024-04-19 08:10 | XMS_ITS | Encounter Summary ---
Author Organization [facility] Address [address] [place] [address] Care Team Providers Care Reporting Consultant Name Role Phone Kimi Deleon MD Unavailable [phone] Hannah Batres NP Unavailable [phone] Millie Hilton MD Primary Care Provider [phone] Encounter Details Date Type Department Care Team (Late st Contact Info) Description 01/08/2022 Transcribe Orders [facility] Endocrinology - [address] [address] Galina Gomes MA Social History Tobacco Use Types Packs/Day Years [...] Office Visit [facility] Ophthalmology - [address] [phone] Marcial Magaña MD [address] [place] [address] 5 [place] [address] 07/25/2024 11:00 EDT Phlebotomy Only [facility] Hematology & Oncology [address] [phone] Blood Doctor, [facility] Hem Onc 07/25/2024 11:45 EDT Office Visit [facility] Hematology & Oncology [address] [address] Abebe Ralph MD [address] [place] [address], Level 2 [place] [phone] 07/25/2024 12:30 EDT Appointment [facility] Hematology & Oncology [address] [address]197[address] 01/03/2025 16:20 EDT Appointment [facility] Breast Imaging Mammography - [address] [phone] documented as of this encounter Visit Diagnoses Not on filedocumented in this encounter Care Teams Reporting Consultant Relationship Specialty Start Date End Date Millie Hilton MD [address] [place] [address] PCP - General 01/03/22 Kimi Deleon MD [address] [place] [phone] 05/16/20 Hannah Batres NP [address] [place], [place] [address] 05/16/20 documented as of this encounter
--- OUTSIDE RECORDS SUMMARY | 2024-04-19 08:10 | XMS_ITS | Encounter Summary ---
Author Organization [facility] Address [address] [place] [address] Care Team Providers Care Singing Waiter Or Waitress Name Role Phone Skye Hernandez Faiza Primary Care Provider Kimi Deleon MD Unavailable [phone] Hannah Batres NP Unavailable [phone] Reason for Visit * Reason Comments Eye Problem * Prior Authorization (Routine) - Closed Specialty Diagnoses / [facility] Referred To Contact Diagnoses Exudative age-related macular degeneration of both eyes with active choroidal neovascularization ([facility]) Procedures NC INJECT INTRAVITREAL PHARMCOLOGIC NC AFLIBERCEPT INJECTION NC BEVACIZUMAB INJECTION Marcial Magaña MD Phone: tel: fax: Marcial Magaña MD Phone: tel: fax: Referral ID Status Reason Start Date Expiration Date Visits Re quested Visits Authorized [id number] Closed 04/19/2021 04/19/2022 13 13 Encounter Details Date Type Department Care Team (Late st Contact Info) Description 09/27/2021 13:15 EDT Office Visit [facility] Ophthalmology - [address] [address] Marcial Magaña MD 111 [facility], Level 5 [place] [address] Social History Tobacco Use Types [...] Progress Notes * Marcial Magaña MD - 09/27/2021 1315 EDT Chief Complaint Patient presents with ??? Eye Problem Comments Wet age-related macular degeneration both eyes, s/p eylea both eyes 08/23/2021. HPI Location: Both eyes Pain: 0 - No pain Quality: Blurry Severity: Moderate Duration: Months Timing: Constant Lasts: Continuous Context: Wet age-related macular degeneration both eyes, s/p eylea both eyes 08/23/2021. Modifying factors: Vision is stable, no pain, no flashes, has stable floaters more so in the right eye. Associated Signs & Symptoms: Visual Fluctuations: Floaters Attestation: Base Eye Exam Visual Acuity (Snellen - Linear) Right Left Dist sc 20/40 +1 20/20 -1 Tonometry (Applanation, 13:20) Right Left Pressure 16 13 Neuro/Psych Oriented x3: Yes Mood/Affect: Normal Dilation Both eyes: Tropicamide 1%, Phenylephrine 2.5% @ 13:20 Slit Lamp and Fundus Exam Slit Lamp Exam Right Left Lids/Lashes Normal Normal Conjunctiva/Sclera White and quiet White and quiet Cornea Clear Clear Anterior Chamber Deep and quiet Deep and quiet Iris Round and reactive Round and reactive Lens mild NS mild NS Vitreous Vitreous syneresis Vitreous syneresis Fundus Exam [...] stable. Findings include pigment epithelial detachment. Notes Right: No fluid Left:Drusen, No fluid Intravitreal Injection, Pharmacologic Agent - OD - Right Eye Time Out 09/27/2021. 13:42. Confirmed correct patient, procedure, site, and patient consented. Anesthesia Topical anesthesia was used. Anesthetic medications included Tetracaine 0.5%, Proparacaine 0.5%. Procedure Preparation included eyelid speculum, 5% betadine to ocular surface. A 30 gauge needle was used. Injection: 2 mg aflibercept (EYLEA) intravitreal syringe [facility]: 53803-515-52, Lot: [id number], Expiration date: 04/23/2022 Route: intravitreal, Site: Right Eye Post-op Post injection exam found visual acuity of at least counting fingers. The patient tolerated the procedure well. There were no complications. The patient received written and verbal post procedure care education. Post injection medications were not given. DIAGNOSES: 1. Exudative age-related macular degeneration of both eyes with active choroidal neovascularization([facility]) ([facility]) OCT, RETINA - OU - BOTH EYES INTRAVITREAL INJECTION, PHARMACOLOGIC AGENT - OD - RIGHT EYE aflibercept (EYLEA) intravitreal syringe 2 mg 2. 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 Improved vision??with??resolution of SRF??6??weeks s/p Eylea??right eye. Had fluid and vision loss 8 weeks out. Stable 20/25 vision with??resolution of??SRF sliver superior to fovea??12 weeks S/P Eylea left eye. Offer Eylea??right??eye??today and??continue every??6 weeks??for right eye??and 12 weeks for the left. Patient agrees ?? Nuclear??cataract both eyes Not visually significant Observe Return as scheduled 7 weeks/PRN Eylea both I have reviewed the past medical, family, [...] Info) Description 07/21/2024 11:00 EDT Office Visit [facility] Ophthalmology - [address] [id number] Marcial Magaña MD [address] [place] [address], [address] [place] [phone] 07/25/2024 11:00 EDT Phlebotomy Only [facility] [place] Hematology & Oncology [address] [id number] Blood Doctor, [facility] Hem Onc 07/25/2024 11:45 EDT Office Visit [facility] [place] Hematology & Oncology [address] [phone] Abebe Ralph MD 111 [facility], [facility], Level 2 [place] [phone] 07/25/2024 12:30 EDT Appointment [facility] Hematology & Oncology - [facility] [address] [place], [place] [phone] 01/03/2025 16:20 EDT Appointment [facility] Breast Imaging Mammography - [facility] [address], [place] [phone] documented as of this encounter Procedures Procedure Name Priority Date/Time Associated Diagnosis Comments INTRAVITREAL INJECTION, PHARMACOLOGIC AGENT - OD - RIGHT EYE Routine 09/27/2021 13:45 EDT Exudative age-related macular degeneration of both eyes with active choroidal neovascularization (HCC-CMS) ([facility]) OCT, RETINA - OU - BOTH EYES Routine 09/27/2021 13:30 EDT Exudative age-related macular degeneration of both eyes with active choroidal neovascularization (HCC-CMS) ([facility]) documented in this encounter Results * INTRAVITREAL INJECTION, PHARMACOLOGIC AGENT - OD - RIGHT EYE (09/27/2021 13:45 EDT) Narrative [facility] POINT OF CARE - 09/27/2021 14:02 EDT Time Out 09/27/2021. 13:42. Confirmed correct patient, procedure, site, and patient consented. Anesthesia Topical anesthesia was used. Anesthetic medications included Tetracaine 0.5%, Proparacaine 0.5%. Procedure Preparation included eyelid speculum, 5% betadine to ocular surface. A 30 gauge needle was used. Injection: 2 mg aflibercept (EYLEA) intravitreal syringe ??ND: 76590-810-55, Lot: [id number], Expiration date: 04/23/2022 ??Route: intravitreal, Site: Right Eye Post-op Post injection exam found visual acuity of at least counting fingers. The patient tolerated the procedure well. There were no complications. The patient received written and verbal post procedure care education. Post injection medications were not given. Marcial Magaña MD OPHTH CLINIC PROCEDURES Final Re sult [facility] POINT OF CARE * OCT, RETINA - OU - BOTH EYES (09/27/2021 13:30 EDT) Narrative [facility] POINT OF CARE - 09/27/2021 14:02 EDT Right Eye Quality was good. Scan locations included subfoveal. Progression has been stable. Findings include pigment epithelial detachment. Left Eye Quality was good. Scan locations included subfoveal. Progression has been stable. Findings include pigment epithelial detachment. Notes Right: No fluid Left:Drusen, No fluid Marcial Magaña MD OPHTH TOMOGRAPHY Final Result Performing Organization Address [facility] Co de Phone Number [facility] POINT OF CARE documented in this [...] 2 mg 2 mg, intravitreal, Starting on Thu09/27/21 at 1343, Until Thu09/27/21 at 1603, RoutineIndications:Exudative age-related macular degeneration of both eyes with active choroidal neovascularization (HCC-CMS) Given 09/27/2021 13:43 EDT 2 mg Right E ye documented in this encounter Orders Medications Ordered That Trevor ht Not Have Been Administered Count Last Ordered Date First Ordered Date aflibercept (EYLEA) intravit real syringe 2 mg 1 09/27/2021 documented in this encounter Eye Exam Visual Acuity (Snellen - Linear) Right eye Left eye Dist sc 20/40 +1 20/20 -1 Tonometry (Applanation, 13:20) Right eye Left eye Pressure 16 13 Neuro/Psych Oriented x3: Yes Mood/Affect: Normal Dilation Both eyes: Tropicamide 1%, P henylephrine 2.5% @ 13:20 Slit Lamp Exam Right eye Left eye Lids/Lashes Normal Normal Conjunctiva/Sclera White and quiet White and renzo et Cornea Clear Clear Anterior Chamber Deep and quiet Deep and quiet Iris Round and reactive Round and gerald ctive Lens mild NS mild NS Vitreous Vitreous syneresis Vitreous syne resis Fundus Exam Right eye Left eye Disc Normal Normal C/D Ratio 0.6 0.6 Macula intermediate and lar ge drusen, PED inferior to fovea large drusen, RPE mottling Vessels Normal Normal Periphery Attached without predisposing le sions Attached without predisposing lesions Care Teams Singing Waiter Or Waitress Relationship Specialty Start Date End Date Skye Hernandez [address] [place] [address] PCP - General 08/11/18 01/02/22 Kimi Deleon MD [address] [place] [phone] 05/16/20 Hannah Batres NP [address] [place] [address] 05/16/20 documented as of this encounter
--- OUTSIDE RECORDS SUMMARY | 2024-04-19 08:10 | XMS_ITS | Encounter Summary ---
Author Organization [facility] Address [address] [place] [address] Care Team Providers Care Aeronautical Inspector Name Role Phone Skye Hernandez Primary Care Provider Kimi Deleon MD Unavailable Hannah Batres NP Unavailable [phone] Encounter Details Date Type Department Care Team (Late st Contact Info) Description 09/09/2021 Orders Only [facility] Hematology & Oncology - [address] [place] [address] Maddie Bobby, RN Malignant neoplasm of upper-outer quadrant of right breast in female, estrogen receptor positive (HCC-CMS) (HCC) (HCC-CMS) (Primary Dx) Social History Tobacco Use [...] Info) Description 07/21/2024 11:00 EDT Office Visit [facility] Ophthalmology [address] [phone] Marcial Magaña MD [address] [place] [address] [address] [place] [phone] 07/25/2024 11:00 EDT Phlebotomy Only [facility] Hematology & Oncology [address] [phone] Blood Doctor, [facility] Hem Onc 07/25/2024 11:45 EDT Office Visit [facility] Hematology & Oncology [address] [phone] Abebe Ralph MD [address] [place] [address], [facility] [address] [place] [phone] 07/25/2024 12:30 EDT Appointment [facility] Hematology & Oncology [address] [address] 01/03/2025 16:20 EDT Appointment [facility] Breast Imaging Mammography - [address] [address] documented as of this encounter Visit Diagnoses Diagnosis Malignant neoplasm of upper-outer quadrant of right breast in female, estrogen receptor positive ([facility] Primary Encounter for screening mammogram for malignant neoplasm of breast Other screening mammogram documented in this encounter Care Teams Aeronautical Inspector Relationship Specialty Start Date End Date Skye Hernandez [address] [place] [address] PCP - General 08/11/18 01/02/22 Kimi Deleon MD [address] [place] [phone] 05/16/20 Hannah Batres NP [address] [place] [address] 05/16/20 documented as of this encounter
--- OUTSIDE RECORDS SUMMARY | 2024-04-19 08:10 | XMS_ITS | Encounter Summary ---
Author Organization [facility] Address [address] [place] [address] Care Team Providers Care Real Estate Assessor Name Role Phone Skye Hernandez Primary Care Provider [phone] Kimi Deleon MD Unavailable [phone] Hannah Batres NP Unavailable [phone] Reason for Visit * Reason Comments Other Encounter Details Date Type Department Care Team (Late st Contact Info) Description 11/30/2021 [facility] Hematology & Oncology - [facility] [address] [place] [address] Abebe Ralph MD 111 [facility], Level [address] [place] [address] Other Social History Tobacco Use [...] MOUTH AT BEDTIME 30 Tablet 2 12/01/2021 documented in this encounter Miscellaneous Notes * Telephone Encounter - Maddie Bobby RN - 12/01/20212057 EDT Celexa refilled per Sofya note documented in this encounter Plan of Treatment Upcoming Encounters Date Type Department Care Team (Late st Contact Info) Description 07/21/2024 11:00 EDT Office Visit [facility] Ophthalmology [address] [address] Marcial Magaña MD [address] [place] [address], [address] [place] [address] 07/25/2024 11:00 EDT Phlebotomy Only [facility] Hematology & Oncology [address] [phone] Blood Doctor, [facility] Hem Onc 07/25/2024 11:45 EDT Office Visit [facility] Hematology & Oncology - [address] [phone] Abebe Ralph MD 111 [facility], Level [address] [place] [phone] 07/25/2024 12:30 EDT Appointment [facility] Hematology & Oncology - [address] [phone] 01/03/2025 16:20 EDT Appointment [facility] Breast Imaging Mammography - [address] 127471 documented as of this encounter Visit Diagnoses [...] TAKE 1 TABLET BY MOUTH AT BEDTIME 08/23/2021 12/01/2021 documented as of this encounter Care Teams Real Estate Assessor Relationship Specialty Start Date End Date Skye Hernandez [address] [place] [address] PCP - General 08/11/18 01/02/22 Kimi Deleon MD [address] [place] [phone] 05/16/20 Hannah Batres NP [address] [place] [address] 05/16/20 documented as of this encounter
--- OUTSIDE RECORDS SUMMARY | 2024-04-19 08:10 | XMS_ITS | Encounter Summary ---
Author Organization [facility] Address [address] [place] [address] Care Team Providers Care Brick Offbearer Name Role Phone Kimi Deleon MD Unavailable [phone] Hannah Batres NP Unavailable [phone] Millie Hilton MD Primary Care Provider Reason for Visit * Reason Comments Eye Problem * Prior Authorization (Routine) - Closed Specialty Diagnoses / Procedures Referred By [facility] Referred To Contact Diagnoses Exudative age-related macular degeneration of both eyes with active choroidal neovascularization (HCC-CMS) Nuclear sclerosis of both eyes Procedures [place] INJECT INTRAVITREAL PHARMCOLOGIC Marcial Magaña MD Phone: tel: fax: Marcial Magaña MD Phone: tel: fax: Referral ID Status Reason Start Date Expiration Date Visits Re quested Visits Authorized [id number] Closed 12/31/2021 03/22/2022 2 2 Encounter Details Date Type Department Care Team (Late st Contact Info) Description 01/03/2022 10:00 EDT Office Visit [facility] Ophthalmology - [address] [address] Marcial Magaña MD 111 [facility], Level [address] [place] [address] Social History Tobacco Use Types [...] Progress Notes * Marcial Magaña MD - 01/03/2022 1000 EDT Chief Complaint Patient presents with ??? Eye Problem Comments F/u Wet AMD both, S/P Eylea both eyes 11/15/21 ??[place] stable both. No floaters or flashes. No pain ?? HPI Location: Both eyes Pain: Quality: Blurry Severity: Moderate Duration: Years Timing: Constant Lasts: Continuous Context: F/u Wet AMD both, S/P Eylea both eyes 11/15/21 [place] stable both. No floaters or flashes. No pain Modifying factors: Associated Signs & Symptoms: Wet AMD both Visual Fluctuations: None Attestation: Base Eye Exam Visual Acuity (Snellen - Linear) Right Left Dist sc 20/30 -2 20/25 -1+1 Dist ph sc NI NI Tonometry (Applanation, 9:50) Right Left Pressure 16 13 Neuro/Psych Oriented x3: Yes Mood/Affect: Normal Dilation Both eyes: Tropicamide 1%, Phenylephrine 2.5% @ 9:50 Slit Lamp and Fundus Exam Slit Lamp [...] Both Eyes Right Eye Quality was good. Progression has no prior data. Findings include pigment epithelial detachment. Left Eye Quality was good. Progression has no prior data. Findings include pigment epithelial detachment. Notes Stable PED. SR cyst right eye. PED no fluid left eye. Intravitreal Injection, Pharmacologic Agent - OD - Right Eye Time Out 01/03/2022. 11:39. Confirmed correct patient, procedure, site, and patient consented. Anesthesia Topical anesthesia was used. Anesthetic medications included Proparacaine 0.5%. Procedure A 30 gauge needle was used. Injection: 2 mg aflibercept (EYLEA) intravitreal syringe [facility]: 27492-431-02, Lot: [id number], Expiration date: 10/03/2022 Route: intravitreal, Site: Right Eye Post-op Post injection exam found visual acuity of at least counting fingers. The patient tolerated the procedure well. There were no complications. DIAGNOSES: 1. Exudative age-related macular degeneration of both eyes with active choroidal neovascularization([facility]) ([facility]) OCT, RETINA - OU - BOTH EYES INTRAVITREAL INJECTION, PHARMACOLOGIC AGENT - OD - RIGHT EYE aflibercept (EYLEA) intravitreal syringe 2 mg Assessment Wet age-related macular degeneration??both eyes?? Improved vision??with??resolution of SRF??7??weeks s/p Eylea??right eye. Had fluid and vision loss 8 weeks out. Stable 20/25 vision with??resolution of??SRF sliver superior to fovea??13 weeks S/P Eylea left eye. Offer Eylea??right eye??today and??continue every??7 weeks??for right eye??and 14 weeks for the left. Patient agrees ?? Nuclear??cataract both eyes Not visually significant Observe ?? Return in about 7 weeks (around 01/03/2022), or if symptoms worsen or fail to improve, for OCT Macular, Eylea, right eye. ?? I have reviewed the past medical, family, [...] he is personally performing the service. GUS Silveira (Scribe) documented in this encounter Plan of Treatment Upcoming Encounters Date Type Department Care Team (Late st Contact Info) Description 07/21/2024 11:00 EDT Office Visit [facility] Ophthalmology - [address] [phone] Marcial Magaña MD [address] [place] [address] [address] [place] [address] 07/25/2024 11:00 EDT Phlebotomy Only [facility] Hematology & Oncology - [address] [phone] Blood Doctor, [facility] Hem Onc 07/25/2024 11:45 EDT Office Visit [facility] Hematology & Oncology [address] [phone] Abebe Ralph MD [address] [place] [address], Level [address] [place] [address] 07/25/2024 12:30 EDT Appointment [facility] Center Hematology & Oncology - [address] [phone] 01/03/2025 16:20 EDT Appointment [facility] Breast Imaging Mammography - [address] [phone] documented as of this encounter Procedures Procedure Name Priority Date/Time Associated Diagnosis Comments INTRAVITREAL INJECTION, PHARMACOLOGIC AGENT - OD - RIGHT EYE Routine 01/03/2022 11:41 EDT Exudative age-related macular degeneration of both eyes with active choroidal neovascularization (HCC-CMS) OCT, RETINA - OU - BOTH EYES Routine 01/03/2022 11:37 EDT Exudative age-related macular degeneration of both eyes with active choroidal neovascularization ([facility]) documented in this encounter Results * INTRAVITREAL INJECTION, PHARMACOLOGIC AGENT - OD - RIGHT EYE (01/03/2022 11:41 EDT) Narrative [facility] POINT OF CARE - 01/03/2022 11:48 EDT Time Out 01/03/2022. 11:39. Confirmed correct patient, procedure, site, and patient consented. Anesthesia Topical anesthesia was used. Anesthetic medications included Proparacaine 0.5%. Procedure A 30 gauge needle was used. Injection: 2 mg aflibercept (EYLEA) intravitreal syringe ??[facility]: 53629-192-71, Lot: [id number], Expiration date: 10/03/2022 ??Route: intravitreal, Site: Right Eye Post-op Post injection exam found visual acuity of at least counting fingers. The patient tolerated the procedure well. There were no complications. us Marcial Magaña MD OPHTH CLINIC PROCEDURES Final Re sult [facility] POINT OF CARE * OCT, RETINA - OU - BOTH EYES (01/03/2022 11:37 EDT) Narrative [facility] OPHTHALMOLOGY - 01/03/2022 11:48 EDT Right Eye Quality was good. Progression has no prior data. Findings include pigment epithelial detachment. Left Eye Quality was good. Progression has no prior data. Findings include pigment epithelial detachment. Notes Stable PED. SR cyst right eye. PED no fluid left eye. Marcial Magaña MD OPHTH TOMOGRAPHY Final Result [facility] OPHTHALMOLOGY documented in this encounter [...] 2 mg 2 mg, intravitreal, Starting on Thu01/03/22 at 1148, Until Thu01/03/22 at 1348, RoutineIndications:Exudative age-related macular degeneration of both eyes with active choroidal neovascularization (HCC-CMS) Given 01/03/2022 11:48 EDT 2 mg Right E ye documented in this encounter Orders Medications Ordered That Trevor ht Not Have Been Administered Count Last Ordered Date First Ordered Date aflibercept (EYLEA) intravit real syringe 2 mg 1 01/03/2022 documented in this encounter Eye Exam Visual Acuity (Snellen - Linear) Right eye Left eye Dist sc 20/30 -2 20/25 -1+1 Dist ph sc NI NI Tonometry (Applanation, 9:50) Right eye Left eye Pressure 16 13 Neuro/Psych Oriented x3: Yes Mood/Affect: Normal Dilation Both eyes: Tropicamide 1%, P henylephrine 2.5% @ 9:50 Slit Lamp Exam Right eye Left eye [...] sions Attached without predisposing lesions Care Teams Brick Offbearer Relationship Specialty Start Date End Date Millie Hilton MD [address] [place] [address] PCP - General 01/03/22 Kimi Deleon MD [address] [place] [phone] 05/16/20 Hannah Batres NP [address] [place], [place] [address] 05/16/20 documented as of this encounter
--- OUTSIDE RECORDS SUMMARY | 2024-04-19 08:10 | XMS_ITS | Encounter Summary ---
Author Organization [facility] Address [address] [place] [address] Care Team Providers Care Residential Team Leader Name Role Phone Kimi Deleon MD Unavailable Hannah Batres NP Unavailable [phone] Millie Hilton MD Primary Care Provider [phone] Encounter Details Date Type Department Care Team (Latest Contact Info) Description 01/03/2022 8:45 EDT Phlebotomy Only [facility] Cancer Center Hematology & Oncology - [facility] [address] [place] [address] Blood Doctor, [facility] Hem Onc Malignant neoplasm of upper-outer quadrant of right breast in female, estrogen receptor positive (HCC-CMS) (Primary Dx); Hyperlipidemia, unspecified hyperlipidemia type Social History Tobacco Use Types Packs/Day Years [...] documented in this encounter Progress Notes * Eb Joy MA - 01/03/2022 0845 EDT Venipuncture performed for Loree Per orders of Loree Number of attempts 1 left AC I was supervised by Rosanna who was present and immediately available in the office suite. EB JOY MA 01/03/2022 9:48 documented in this encounter Plan of Treatment Upcoming Encounters Date Type Department Care Team (Late st Contact Info) Description 07/21/2024 11:00 EDT Office Visit [facility] Ophthalmology [address] [address] Marcial Magaña MD [address] [place] [address], [address] 5 [place] [phone] 07/25/2024 11:00 EDT Phlebotomy Only [facility] Hematology & Oncology [address] [phone] Blood Doctor, [facility] Hem Onc 07/25/2024 11:45 EDT Office Visit [facility] Hematology & Oncology [address] 894[address] Abebe Ralph MD [address] [facility], [facility], [address] [place] [phone] 07/25/2024 12:30 EDT Appointment [facility] Cancer Center Hematology & Oncology - [address] [phone] 01/03/2025 16:20 EDT Appointment [facility] Breast Imaging Mammography - [address] [phone] documented as of this encounter Procedures Procedure Name Priority Date/Time Associated Diagnosis Comments COMPLETE BLOOD COUNT AND DIFFERENTIAL STAT 01/03/2022 8:57 EDT Malignant neoplasm of upper-outer quadrant of right breast in female, estrogen receptor positive (HCC-CMS) LIPID PROFILE (INCLUDES CHOLESTEROL, TRIGLYCERIDES, HDL, LDL) Routine 01/03/2022 8:57 EDT Hyperlipidemia, unspecified hyperlipidemia type COMPREHENSIVE METABOLIC PANEL (CMP) STAT 01/03/2022 8:57 EDT Malignant neoplasm of upper-outer quadrant of right breast in female, estrogen receptor positive (HCC-CMS) documented in this encounter Results * (ABNORMAL) LIPID PROFILE (INCLUDES CHOLESTEROL, TRIGLYCERIDES, HDL, LDL) (01/03/2022 8:57 EDT) Cholesterol 218(H) <200 mg/dL 01/07/2022 13:34 EDT [facility] Comment:Note that therapeuti c goals will differ between patients based on cardiac risk factors and current medical therapy. HDL 51 >=50 mg/dL 01/07/2022 13:34 T [facility] Comment:Note that therapeuti c goals will differ between patients based on cardiac risk factors and current medical therapy. LDL, Calculated 146 <160 mg/dL 13:34 [facility] Comment:Note that therapeuti c goals will differ between patients based on cardiac risk factors and current medical therapy. Triglyceride 104 <=150 mg/dL 01/07/2022 13:34 [facility] Comment:Note that therapeuti c goals will differ between patients based on cardiac risk factors and current medical therapy. Chol/HDL Ratio 4.3 See Note 01/07/2022 13:34 [facility] Comment:No reference range h as been established for CHOL/HDL ratio. Non HDL Cholesterol 167(H) <160 mg/dL 01/07/2022 13:34 [facility] Comment:Note that therapeuti c goals will differ between patients based on cardiac risk factors and current medical therapy. Blood VENOUS BLOOD / Unknown Venipuncture / Unknown 01/03/2022 8:57 EDT 01/03/2022 9:01 EDT Millie Hilton MD CHEMISTRY & BLOOD GAS ORDERAB LES Final Result [facility] [address] [place] [address] * (ABNORMAL) COMPREHENSIVE METABOLIC PANEL (CMP) (01/03/2022 8:57 EDT) Sodium 140 136 - 145 mmol/L 01/03/2022 9:21 [facility] Potassium 4.7 3.5 - 5.0 mmol/L 01/03/2022 9:21 [facility] Chloride 104 96 - 110 mmol/L 01/03/2022 9:21 [facility] CO2 Total 25 22 - 32 mmol/L 01/03/2022 9:21 [facility] Glucose 107(H) 70 - 100 mg/dL 01/03/2022 9:21 [facility] BUN 12 10 - 26 mg/dL 01/03/2022 9:21 [facility] Creatinine 0.67 0.52 - 1.04 mg/dL 01/03/2022 9:21 [facility] eGFR 92 >60 mL/min/1.7 3m2 01/03/2022 9:21 [facility] Total Protein 7.4 6.3 - 8.2 g/dL 01/03/2022 9:21 [facility] Albumin 4.5 3.4 - 4.9 g/dL 01/03/2022 9:21 [facility] Alkaline Phosphatase 65 38 - 126 U/L 01/03/2022 9:21 [facility] AST 24 15 - 46 U/L 01/03/2022 9:21 [facility] ALT 18 <35 U/L 01/03/2022 9:21 [facility] Bilirubin, Total <0.5 <1.4 mg/dL 01/04/20 9:21 [facility] Calcium 9.7 8.5 - 10.5 mg/dL 01/03/2022 9:21 [facility] Albumin/Globulin Ratio 1.6 1.0 - 2.5 01/03/2022 9:21 [facility] Anion Gap 11 5 - 14 01/03/2022 9:21 [facility] Blood VENOUS BLOOD / Unknown Venipuncture / Unknown 01/03/2022 8:57 EDT 01/03/2022 9:01 EDT Abebe Ralph MD CHEMISTRY & BLOOD GAS ORDERAB LES Final Result [facility] [address] [place] [address] * COMPLETE BLOOD COUNT AND DIFFERENTIAL (01/03/2022 8:57 EDT) WBC 5.67 4.00 - 12.40 K/cmm 01/03/2022 9:19 [facility] RBC 4.35 3.86 - 5.04 M/cmm 01/03/2022 9:19 [facility] Hemoglobin 13.3 11.6 - 15.2 gm/dL 01/03/2022 9:19 [facility] HCT 40.0 34.9 - 44.4 % 01/03/2022 9:19 [facility] MCV 92 81 - 98 fl 01/03/2022 9:19 [facility] MCH 30.6 26.7 - 33.3 pg 01/03/2022 9:19 [facility] MCHC 33.3 32.1 - 35.9 gm/dL 01/03/2022 9:19 [facility] RDW-CV 13.6 <14.7 % 01/03/2022 9:19 [facility] RDW-SD 46.4 <50.4 fl 01/03/2022 9:19 [facility] PLT 269 141 - 377 K/cmm 01/03/2022 9:19 [facility] MPV 11.0 9.5 - 12.7 fl 01/03/2022 9:19 [facility] % Neutrophils 57.4 % 01/03/2022 9:19 [facility] % Lymphocytes 31.4 % 01/03/2022 9:19 [facility] % Monocytes 8.8 % 01/03/2022 9:19 [facility] % Eosinophils 1.8 % 01/03/2022 9:19 [facility] % Basophils 0.4 % 01/03/2022 9:19 [facility] % Immature Grans 0.2 % 01/04/20 9:19 [facility] Absolute Neutrophils 3.26 2.20 - 8.85 K/cmm 01/03/2022 9:19 [facility] Absolute Lymphocytes 1.78 1.09 - 3.30 K/cmm 01/03/2022 9:19 [facility] Absolute Monocytes 0.50 0.10 - 0.80 K/cmm 01/03/2022 9:19 [facility] Absolute Eosinophils 0.10 0.03 - 0.61 K/cmm 01/03/2022 9:19 [facility] ABS Basophils 0.02 0.01 - 0.11 K/cmm 01/03/2022 9:19 [facility] Absolute Immature Grans 0.01 0.00 - 0.06 K/cmm 01/03/2022 9:19 EDT [facility] Type of Differential: Auto 01/03/2022 9:19 EDT [facility] Blood VENOUS BLOOD / Unknown Venipuncture / Unknown 01/03/2022 8:57 EDT 01/03/2022 9:01 EDT us Abebe Ralph MD PACKAGES & DNA PROBE ORDERABL ES Final Result [facility] [address] [place] [address] documented in this encounter Visit Diagnoses Diagnosis Malignant neoplasm of upper-outer quadrant of right breast in female, estrogen receptor positive ([facility]-CMS)- Primary Hyperlipidemia, unspecified hyperlipidemia type Encounter for screening mammogram for malignant neoplasm of breast Other screening mammogram documented in this encounter Care Teams Residential Team Leader Relationship Specialty Start Date End Date Millie Hilton MD [address] [place] [address] PCP - General 01/03/22 Kimi Deleon MD [address] [place] [address] 05/16/20 Hannah aBtres NP [address] [place] [address] 05/16/20 documented as of this encounter
--- OUTSIDE RECORDS SUMMARY | 2024-04-19 08:10 | XMS_ITS | Encounter Summary ---
Author Organization [facility] Address [address] [place] [address] Care Team Providers Care Voice Studies Director Name Role Phone BentleyrenettaSkye Faiza Primary Care Provider Kimi Deleon MD Unavailable [phone] Hannah Batres NP Unavailable [phone] Reason for Visit * Reason Onset Date Comments Appointment Related 11/19/2021 Encounter Details Date Type Department Care Team (Late st Contact Info) Description 11/19/2021 Telephone [facility] Ophthalmology - [address] [address] Marcial Magaña MD 111 [facility], [address] [place] [address] Appointment Related Social History Tobacco [...] encounter Miscellaneous Notes * Telephone Encounter - Shannan Salas - 11/19/2021 0801 EDT Lmom for pt to call back and schedule next appt. Reminder has been placed documented in this encounter Plan of Treatment Upcoming Encounters Date Type Department Care Team (Late st Contact Info) Description 07/21/2024 11:00 EDT Office Visit [facility] Ophthalmology [address] [phone] Marcial Magaña MD [address] [place] [address] [address] [place] [phone] 07/25/2024 11:00 EDT Phlebotomy Only [facility] Hematology & Oncology - [address] [address] Blood Doctor, [facility] Hem Onc 07/25/2024 11:45 EDT Office Visit [facility] Hematology & Oncology [address] [address] Abebe Ralph MD [address] [place] [address] [address] [place] [address] 07/25/2024 12:30 EDT Appointment [facility] Cancer Center Hematology & Oncology - [address] [address] 01/03/2025 16:20 EDT Appointment [facility] Breast Imaging Mammography - [address] [phone] documented as of this encounter Visit Diagnoses Not on filedocumented in this encounter Care Teams Voice Studies Director Relationship Specialty Start Date End Date Skye Hernandez [address] [place] [address] PCP - General 08/11/18 01/02/22 Kimi Deleon MD [address] [place] [address] 05/16/20 Hannah Batres NP [address] [place] [address] 05/16/20 documented as of this encounter
--- OUTSIDE RECORDS SUMMARY | 2024-04-19 08:10 | XMS_ITS | Encounter Summary ---
Author Organization [facility] Address [address] [place] [address] Care Team Providers Care Case Fitter Name Role Phone Kimi Deleon MD Unavailable Hannah Batres NP Unavailable [phone] Millie Hilton MD Primary Care Provider [phone] Reason for Visit * Reason Onset Date Comments Labs Only 01/07/2022 Coordination Of Care 01/07/2022 Encounter Details Date Type Department Care Team (Late st Contact Info) Description 01/07/2022 Telephone [facility] Cancer Center Hematology & Oncology - [address] [address] Abebe Ralph MD 111 [facility] [address] [place] [address] Labs Only; Coordination Of Care Social History Tobacco Use Types Packs/Day [...] encounter Miscellaneous Notes * Telephone Encounter - Melisa Stubbs RN - 01/07/2022 1243 EDT Spoke with lab customer counter associate who stated they were able to add the lab on to samples collected yesterday. Reviewed this with Jeffery who was thankful. She will review what lab are needed next time she has her labs drawn. MELISA STUBBS RN * Telephone Encounter - Ruthann Mayers - 01/07/2022 0947 EDT Patient is calling to speak to Maddie regarding some blood tests that Dr Ralph asked patient to speak to her PCP about. Please call back to discuss. documented in this encounter Plan of Treatment Upcoming Encounters Date Type Department Care Team (Late st Contact Info) Description 07/21/2024 11:00 EDT Office Visit [facility] Ophthalmology - [address] [address] Marcial Magaña MD [address] [place] [address], Level [address] [place] [phone] 07/25/2024 11:00 EDT Phlebotomy Only [facility] Hematology & Oncology [address] [address] Blood Doctor, [facility] Hem Onc 07/25/2024 11:45 EDT Office Visit [facility] Hematology & Oncology [address] [address] Abebe Ralph MD [address] [place] [address], Level 2 [place] [phone] 07/25/2024 12:30 EDT Appointment [facility] Hematology & Oncology [address] [address] 01/03/2025 16:20 EDT Appointment [facility] Breast Imaging Mammography - [address] [address] documented as of this encounter Visit Diagnoses Not on filedocumented in this encounter Care Teams Case Fitter Relationship Specialty Start Date End Date Millie Hilton MD [address] [place] [address] PCP - General 01/03/22 Kimi Deleon MD [address] [place] [address] 05/16/20 Hannah Batres NP [address] [place] [address] 05/16/20 documented as of this encounter
--- OUTSIDE RECORDS SUMMARY | 2024-04-19 08:10 | XMS_ITS | Encounter Summary ---
Author Organization [facility] Address [address] [place] [address] Care Team Providers Care [employer] Assembler Name Role Phone BentleyrenettaSkye Faiza Primary Care Provider [phone] Kimi Deleon MD Unavailable [phone] Hannah Batres NP Unavailable [phone] Reason for Referral * Radiology Services (Routine/Next Available) - Closed Specialty Diagnoses / Procedures Referred By Contac t Referred To Contact Diagnoses Malignant neoplasm of upper-outer quadrant of right breast in female, estrogen receptor positive (HCC-CMS) Procedures MA BREAST SCREENING JOE BILATERAL Abebe Ralph MD Phone: tel: fax: [facility] Referral ID Status Reason Start Date Expiration Date Visits Re quested Visits Authorized [id number] Closed 03/13/2021 1 1 Reason for Visit * Radiology Services (Routine/Next Available) - Closed Specialty Diagnoses / Procedures Referred By Contac t Referred To Contact Diagnoses Malignant neoplasm of upper-outer quadrant of right breast in female, estrogen receptor positive (HCC-CMS) Procedures MA BREAST SCREENING JOE BILATERAL Abebe Ralph MD Phone: tel: fax: [facility] Referral ID Status Reason Start Date Expiration Date Visits Re quested Visits Authorized [id number] Closed 03/13/2021 1 1 Encounter Details Date Type Department Care Team (Latest Contact Info) Description 09/11/2021 11:07 EDT - 09/11/2021 13:05 EDT Hospital Encounter [facility] Breast Imaging Mammography - [address] [address] Malignant neoplasm of upper-outer quadrant of right breast in female, estrogen receptor positive (HCC-CMS) (HCC) (HCC-CMS) Discharge Disposition: Home or Self Care Social [...] skin every 6 months. (started 12/16/18 at [facility]) Fish Oil-Moffett-3 Fatty Acids 360-1,200 mg capsule 1360mg, 2 [...] Info) Description 07/21/2024 11:00 EDT Office Visit [facility] Ophthalmology - [address] [phone] Marcial Magaña MD [address] [place] [address], Level [address] [place] [address] 07/25/2024 11:00 EDT Phlebotomy Only [facility] Hematology & Oncology - [address] [address] Blood Doctor, [facility] Hem Onc 07/25/2024 11:45 EDT Office Visit [facility] Hematology & Oncology - [address] [address] Abebe Ralph MD 111 [facility], Level [address] [place] [phone] 07/25/2024 12:30 EDT Appointment [facility] Hematology & Oncology [address] [address] 01/03/2025 16:20 EDT Appointment [facility] Breast Imaging Mammography - [address] [phone] documented as of this encounter Procedures Procedure Name Priority Date/Time Associated Diagnosis Comments MA BREAST SCREENING JOE BILATERAL Routine 09/11/2021 11:30 EDT Malignant neoplasm of upper-outer quadrant of right breast in female, estrogen receptor positive (HCC-CMS) (HCC) (HCC-CMS) documented in this encounter Results * MA BREAST SCREENING JOE BILATERAL (09/11/2021 11:30 EDT) Anatomical Region Laterality Modality Breast Bilateral Mammography 09/11/2021 11:3 9 EDT Impressions 09/11/2021 11:39 EDT Benign, no evidence of malignancy. RECOMMENDATION: Routine screening mammography is recommended. OVERALL ASSESSMENT: BI-RADS 2: Benign These results will be communicated to your patient via a lay letter from Radiology. If any additional imaging is needed we will contact your patient directly. Narrative 09/11/2021 11:39 EDT MA BREAST SCREENING JOE BILATERAL ??09/11/2021 11:30 AM History: breast cancer Comparison: ??Comparison has been made to previous images. Technique: Routine 3D tomosynthesis with synthesized 2D views with CAD Bilateral Breast Composition: There are scattered areas of fibroglandular density. Bilateral Breast Findings: ??No significant masses, calcifications or other abnormalities are seen. Status post lumpectomy on the right. Findings are stable. Procedure Note Leelee Moreno MD - 09/11/2021 MA BREAST SCREENING JOE BILATERAL 09/11/2021 11:30 AM History: breast cancer Comparison: Comparison has been made to previous images. Technique: Routine 3D tomosynthesis with synthesized 2D views with CAD Bilateral Breast Composition: There are scattered areas of fibroglandulardensity. Bilateral Breast Findings: No significant masses, calcifications or otherabnormalities are seen. Status post lumpectomy on the right. Findings arestable. IMPRESSION Benign, no evidence of malignancy. RECOMMENDATION: Routine screening mammography is recommended. OVERALL ASSESSMENT: BI-RADS 2: Benign These results will be communicated to your patient via a lay letter fromRadiology. If any additional imaging is needed we will contact yourpatient directly. us Abebe Ralph MD IMG MAMMOGRAPHY ORDERABLES Fi nal Result documented in this encounter Visit Diagnoses Diagnosis Malignant neoplasm of upper-outer quadrant of right breast in female, estrogen receptor positive ([facility]) Encounter for screening mammogram for malignant neoplasm of breast Other screening mammogram documented in this encounter Care Teams [employer]urb[employer] Assembler Relationship Specialty Start Date End Date Skye Hernandez [address] [place] [address] PCP - General 08/11/18 01/02/22 Kimi Deleon MD [address] [place] [address] 05/16/20 Hannah Batres NP [address] [place] [address] 05/16/20 documented as of this encounter
--- OUTSIDE RECORDS SUMMARY | 2024-04-19 08:10 | XMS_ITS | Encounter Summary ---
Author Organization [facility] Address [address] [place] [address] Care Team Providers Care Staff Development Coordinator Name Role Phone Skye Hernandez Primary Care Provider [phone] Kimi Deleon MD Unavailable Hannah Batres NP Unavailable [phone] Encounter Details Date Type Department Care Team (Late st Contact Info) Description 09/11/2021 12:00 EDT Phlebotomy Only [facility] ED Center 2 Phlebotomy [address] [place] [address], Acc Phlebotomy Malignant neoplasm of upper-outer quadrant of right breast in female, estrogen receptor positive (HCC-CMS) (HCC) (HCC-CMS) Social History Tobacco Use Types Packs/Day [...] Visit [facility] Ophthalmology [address] 944251 Marcial Magaña MD [address] [place] [address], [facility] [address] [place] [phone] 07/25/2024 11:00 EDT Phlebotomy Only [facility] Hematology & Oncology [address] 505381 Blood Doctor, [facility] Hem Onc 07/25/2024 11:45 EDT Office Visit [facility] Hematology & Oncology [address] 5180[address] Abebe Ralph MD [address] [place] [address], Level 2 [place] [phone] 07/25/2024 12:30 EDT Appointment [facility] Hematology & Oncology [address] [address]151 01/03/2025 16:20 EDT Appointment [facility] Breast Imaging Mammography - [address] [address] documented as of this encounter Procedures Procedure Name Priority Date/Time Associated Diagnosis Comments COMPLETE BLOOD COUNT AND DIFFERENTIAL STAT 09/11/2021 12:01 EDT Malignant neoplasm of upper-outer quadrant of right breast in female, estrogen receptor positive (HCC-CMS) (HCC) (HCC-CMS) COMPREHENSIVE METABOLIC PANEL (CMP) STAT 09/11/2021 12:01 EDT Malignant neoplasm of upper-outer quadrant of right breast in female, estrogen receptor positive (HCC-CMS) (HCC) (HCC-CMS) documented in this encounter Results * COMPREHENSIVE METABOLIC PANEL (CMP) (09/11/2021 12:01 EDT) Sodium 138 136 - 145 mmol/L 09/11/2021 12:34 [facility] Potassium 4.6 3.5 - 5.0 mmol/L 09/11/2021 12:34 [facility] Chloride 103 96 - 110 mmol/L 09/11/2021 12:34 [facility] CO2 Total 27 22 - 32 mmol/L 09/11/2021 12:34 [facility] Glucose 100 70 - 100 mg/dL 09/11/2021 12:34 [facility] BUN 22 10 - 26 mg/dL 09/11/2021 12:34 [facility] Creatinine 0.74 0.52 - 1.04 mg/dL 09/11/2021 12:34 [facility] eGFR 86 >60 mL/min/1.7 3m2 09/11/2021 12:34 [facility] Total Protein 7.2 6.3 - 8.2 g/dL 09/11/2021 12:34 [facility] Albumin 4.3 3.4 - 4.9 g/dL 09/11/2021 12:34 [facility] Alkaline Phosphatase 50 38 - 126 U/L 09/11/2021 12:34 [facility] AST 20 15 - 46 U/L 09/11/2021 12:34 [facility] ALT 15 <35 U/L 09/11/2021 12:34 [facility] Bilirubin, Total <0.5 <1.4 mg/dL 09/12/19 12:34 [facility] Calcium 9.0 8.5 - 10.5 mg/dL 09/11/2021 12:34 [facility] Albumin/Globulin Ratio 1.5 1.0 - 2.5 09/11/2021 12:34 [facility] Anion Gap 8 5 - 14 09/11/2021 12:34 [facility] Blood VENOUS BLOOD / Unknown Venipuncture / Unknown 09/11/2021 12:01 EDT 09/11/2021 12:03 EDT us Abebe Ralph MD CHEMISTRY & BLOOD GAS ORDERAB LES Final Result Performing Organization Address City/State/[facility] Co de Phone Number [facility] [address] [place] [address] * COMPLETE BLOOD COUNT AND DIFFERENTIAL (09/11/2021 12:01 EDT) WBC 6.84 4.00 - 12.40 K/cmm 09/11/2021 12:11 [facility] RBC 4.12 3.86 - 5.04 M/cmm 09/11/2021 12:11 [facility] Hemoglobin 12.7 11.6 - 15.2 gm/dL 09/11/2021 12:11 [facility] HCT 39.0 34.9 - 44.4 % 09/11/2021 12:11 [facility] MCV 95 81 - 98 fl 09/11/2021 12:11 [facility] MCH 30.8 26.7 - 33.3 pg 09/11/2021 12:11 [facility] MCHC 32.6 32.1 - 35.9 gm/dL 09/11/2021 12:11 [facility] RDW-CV 13.0 <14.7 % 09/11/2021 12:11 [facility] RDW-SD 45.6 <50.4 fl 09/11/2021 12:11 [facility] PLT 268 141 - 377 K/cmm 09/11/2021 12:11 [facility] MPV 10.7 9.5 - 12.7 fl 09/11/2021 12:11 [facility] % Neutrophils 59.8 % 09/11/2021 12:11 [facility] % Lymphocytes 29.1 % 09/11/2021 12:11 [facility] % Monocytes 9.5 % 09/11/2021 12:11 [facility] % Eosinophils 0.9 % 09/11/2021 12:11 [facility] % Basophils 0.4 % 09/11/2021 12:11 [facility] % Immature Grans 0.3 % 09/12/19 12:11 [facility] Absolute Neutrophils 4.09 2.20 - 8.85 K/cmm 09/11/2021 12:11 [facility] Absolute Lymphocytes 1.99 1.09 - 3.30 K/cmm 09/11/2021 12:11 [facility] Absolute Monocytes 0.65 0.10 - 0.80 K/cmm 09/11/2021 12:11 [facility] Absolute Eosinophils 0.06 0.03 - 0.61 K/cmm 09/11/2021 12:11 [facility] ABS Basophils 0.03 0.01 - 0.11 K/cmm 09/11/2021 12:11 [facility] Absolute Immature Grans 0.02 0.00 - 0.06 K/cmm 09/11/2021 12:11 [facility] Type of Differential: Auto 09/11/2021 12:11 [facility] Blood VENOUS BLOOD / Unknown Venipuncture / Unknown 09/11/2021 12:01 EDT 09/11/2021 12:03 EDT us Abebe Ralph MD PACKAGES & DNA PROBE ORDERABL ES Final Result [facility] [address] [place] [address] documented in this encounter Visit Diagnoses Diagnosis Malignant neoplasm of upper-outer quadrant of right breast in female, estrogen receptor positive ([facility]ER[facility]) Encounter for screening mammogram for malignant neoplasm of breast Other screening mammogram documented in this encounter Care Teams Staff Development Coordinator Relationship Specialty Start Date End Date Skye Hernandez [address] [place] [address] PCP - General 08/11/18 01/02/22 Kimi Deleon MD [address] [place] [address] 05/16/20 Hannah Batres NP [address] [place] [address] 05/16/20 documented as of this encounter
--- OUTSIDE RECORDS SUMMARY | 2024-04-19 08:10 | XMS_ITS | Encounter Summary ---
Author Organization [facility] Address [address] [place] [address] Care Team Providers Care Squad Boss Name Role Phone Kimi Deleon MD Unavailable [phone] Hannah Batres NP Unavailable [phone] Millie Hilton MD Primary Care Provider [phone] Reason for Visit * Reason Onset Date Comments Appointment Related 01/07/2022 Encounter Details Date Type Department Care Team (Late st Contact Info) Description 01/07/2022 Telephone [facility] Cancer Center Hematology & Oncology - [facility] [address] [place] [address] Abebe Ralph MD [address] [facility] 2 [place] [address] Appointment Related Social History [...] Telephone Encounter - Tien Maier - 01/07/2022 0924 EDT LMOM FOR PT ABOUT NEXT APPT 02/03 CHECK IN AT 1115 LEFT pac# documented in this encounter Plan of Treatment Upcoming Encounters Date Type Department Care Team (Late st Contact Info) Description 07/21/2024 11:00 EDT Office Visit [facility] Ophthalmology - [address] [address] Marcial Magaña MD [address] [place] [address], Level 5 [place] [phone] 07/25/2024 11:00 EDT Phlebotomy Only [facility] Hematology & Oncology [address] [phone] Blood Doctor, [facility] Hem Onc 07/25/2024 11:45 EDT Office Visit [facility] Hematology & Oncology [address] [phone] Abebe Ralph MD [address] [place] [address], Level 2 [place] [address] 07/25/2024 12:30 EDT Appointment [facility] Cancer Center Hematology & Oncology - [address] [address] 01/03/2025 16:20 EDT Appointment [facility] Breast Imaging Mammography - [address] [phone] documented as of this encounter Visit Diagnoses Not on filedocumented in this encounter Care Teams Squad Boss Relationship Specialty Start Date End Date Millie Hilton MD [address] [place] [address] PCP - General 01/03/22 Kimi Deleon MD [address] [place] [address] 05/16/20 Hannah Batres NP [address] [place] [address] 05/16/20 documented as of this encounter
--- OUTSIDE RECORDS SUMMARY | 2024-04-19 08:10 | XMS_ITS | Encounter Summary ---
Author Organization [facility] Address [address] [place] [address] Care Team Providers Care Fresh Foods Cake Decorator Name Role Phone Skye Hernandez Primary Care Provider [phone] Kimi Deleon MD Unavailable Hannah Batres NP Unavailable [phone] Encounter Details Date Type Department Care Team (Late st Contact Info) Description 09/10/2021 Orders Only [facility] Cancer Center Hematology & Oncology - Main [place] [address] [place] [address] Alma Garcia RN Social History Tobacco Use Types Packs/Day Years [...] Info) Description 07/21/2024 11:00 EDT Office Visit [facility] Ophthalmology - [address] [address] Marcial Magaña MD [address] [place] [address] 5 [place] [phone] 07/25/2024 11:00 EDT Phlebotomy Only [facility] Hematology & Oncology [address] [phone] Blood Doctor, [facility] Hem Onc 07/25/2024 11:45 EDT Office Visit [facility] Hematology & Oncology [address] [address] Abebe Ralph MD [address] [place] [address], Level [address] [place] [phone] 07/25/2024 12:30 EDT Appointment [facility] Hematology & Oncology [address] [address] 01/03/2025 16:20 EDT Appointment [facility] Breast Imaging Mammography - [address] [phone] documented as of this encounter Visit Diagnoses Not on filedocumented in this encounter Care Teams Fresh Foods Cake Decorator Relationship Specialty Start Date End Date Skye Hernandez [address] [place] [address] PCP - General 08/11/18 01/02/22 Kimi Deleon MD [address] [place] [address] 05/16/20 Hannah Batres NP [address] [place], [place] [address] 05/16/20 documented as of this encounter
--- OUTSIDE RECORDS SUMMARY | 2024-04-19 08:10 | XMS_ITS | Encounter Summary ---
Author Organization [facility] Address [address] [place] [address] Care Team Providers Care Custodial Aide Name Role Phone Skye Hernandez Primary Care Provider [phone] Kimi Deleon MD Unavailable [phone] Hannah Batres NP Unavailable [phone] Reason for Referral * Radiology Services (Routine/Next Available) - Specialty Report Received Specialty Diagnoses / Procedures Referred By [facility] [place] [facility] Referred To Contact Diagnoses Malignant neoplasm of upper-outer quadrant of right breast in female, estrogen receptor positive (HCC-CMS) Procedures DXA BONE DENSITY Abebe Ralph MD Phone: tel: fax: Referral ID Status Reason Start Date Expiration Date V isits Requested Visits Authorized [id number] Specialty Report Received 10/11/2021 1 1 Reason for Visit * Reason Comments Follow-up Encounter Details Date Type Department Care Team (Late st Contact Info) Description 10/11/2021 10:00 EDT Office Visit [facility] Cancer Center Hematology & Oncology - [address] [address] Abebe Ralph MD 111 [facility], [facility], Level 2 [place] [phone] Malignant neoplasm of upper-outer quadrant of right [...] Sign Reading Time Taken Comments Blood Pressure 186/81 10/11/2021 1002 EDT Pulse 48 10/11/2021 1002 EDT Temperature 36 ??C (96.8 ??F) 10/11/2021 1002 EDT Respiratory Rate 14 10/11/2021 1002 EDT Oxygen Saturation 100% 10/11/2021 1002 EDT Inhaled Oxygen Concentration - - Weight 68.9 kg (151 lb 12.8 oz) 10/11/2021 1002 EDT Height - - Body Mass Index 25.79 09/11/2021 1315 EDT documented in this encounter Functional Status [...] Date End Date anastrozole (ARIMIDEX) 1 mg tablet Take 1 Tablet by mouth daily for 90 days. 90 Tablet 3 10/11/2021 06/02/2022 documented in this encounter Progress Notes * Abebe Ralph MD - 10/11/2021 1000 EDT Subjective Jeffery Garvey is a 70 y.o. female, who returns in followup for [...] HPI: Jeffery Garvey returns in follow-up, now off Femara for about 4 to 5 weeks or so. She does feel substantially better. Please see my prior note, she was having significant musculoskeletal symptoms and had developed of the prior probably 3 to 5 months. Interestingly what she describes now is just quite generalized diffuse body aching. Within about 2 weeks of discontinuing her Femara this is substantially better and she now feels pretty much back to her baseline. She additionally underwent partial knee replacement, Peace, 09/30/2021 and is recovering very nicely from this. 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 ??? calcium carbonate/vitamin D3 (CALCIUM 500 + D ORAL) Take 1 caplet by mouth 2 times daily. ??? cholecalciferol, Vitamin D3, 1,000 unit tablet Take 4,000 Units by mouth daily. ??? citalopram (CELEXA) 10 mg tablet TAKE 1 TABLET BY MOUTH AT BEDTIME ??? denosumab 60 mg/mL syringe syringe Inject 60 mg into the skin every 6 months. (started 12/16/18 at [facility]) ??? Fish Oil-Chardon-3 Fatty Acids (FISH OIL) 360-1,200 mg capsule 1360mg, 2 caps by mouth daily ??? GLYCINE ORAL Take 1,500 mg by mouth at bedtime. ??? letrozole (FEMARA) 2.5 mg tablet TAKE 1 TABLET BY MOUTH DAILY (Patient not taking: Reported on 09/27/2021) ??? magnesium glycinate-mag oxide 120 mg magnesium [...] Take 1 caplet by mouth daily. Vitals: 10/11/21 1002 BP: (!) 186/81 Pulse: (!) 48 Resp: 14 Temp: 36 ??C (96.8 ??F) TempSrc: Skin SpO2: 100% Weight: 68.9 kg (151 lb 12.8 oz) Wt Readings from Last 3 Encounters: 10/11/21 68.9 kg (151 lb 12.8 oz) 09/11/21 68.9 kg (151 lb 14.4 oz) 03/13/21 68.5 kg (151 lb 1.6 oz) Physical Exam Objective: Jeffery Garvey is [...] edema. Lab Results Component Value Date WBC 6.84 09/11/2021 HGB 12.7 09/11/2021 HCT 39.0 09/11/2021 MCV 95 09/11/2021 PLT 268 09/11/2021 NEUTROABS 4.09 09/11/2021 CALCIUM 9.0 09/11/2021 CO2 27 09/11/2021 AST 20 09/11/2021 ALT 15 09/11/2021 TBIL <0.5 09/11/2021 CREATININE 0.74 09/11/2021 CALCCA 9.3 09/03/2020 ANIONGAP 8 09/11/2021 TP 7.2 09/11/2021 K 4.6 09/11/2021 ALKPHOS 50 09/11/2021 LABALBU 4.3 09/11/2021 BUN 22 09/11/2021 CALCGFR 86 09/11/2021 CL 103 09/11/2021 SERGLU 100 09/11/2021 NA 138 09/11/2021 Imaging Assessment & Plan Jeffery Garvey returns in follow-up, as above. I think her prior musculoskeletal symptoms weredue to her Femara as noted above. I reviewed in some detail with Frannie today treatment options. Interestingly she was having some concerns about the necessity of any endocrine therapy, although I will note she after discussing this in some detail realizes the consequences of metastatic breast cancer, having had a sister from this unfortunately many years ago. While she does have reasonably favorable pathology she has a significant risk of metastatic disease with local regional treatment alone and we reviewed this in some detail. We will proceed with a trial of adjuvant Arimidex, and additionally I discussed briefly with her the potential of our new study evaluating a novel SERDand in the adjuvant setting and nose intolerant of an aromatase inhibitor. I spent a total of 50 minutes [...] Info) Description 07/21/2024 11:00 EDT Office Visit [facility] Ophthalmology - [address] [address] Marcial Magaña MD 111 [facility], [facility] 5 [place] [phone] 07/25/2024 11:00 EDT Phlebotomy Only [facility] Hematology & Oncology [address] [phone] Blood Doctor, [facility] Hem Onc 07/25/2024 11:45 EDT Office Visit [facility] Hematology & Oncology [address] [phone] Abebe Ralph MD [address] [place] [address], Level 2 [place] [phone] 07/25/2024 12:30 EDT Appointment [facility] Hematology & Oncology [address] 6[address] 01/03/2025 16:20 EDT Appointment [facility] Breast Imaging Mammography [address] [phone] documented as of this encounter Results * DXA BONE DENSITY (01/06/2022 13:08 EDT) Anatomical Region Laterality Modality Other us Abebe Ralph MD IMG DEXA ORDERABLES Final Res ult documented in this encounter Visit Diagnoses Diagnosis Malignant neoplasm of upper-outer quadrant of right breast in female, estrogen receptor positive ([facility])- Primary Encounter for screening mammogram for malignant neoplasm of breast Other screening mammogram documented in this encounter Care Teams Custodial Aide Relationship Specialty Start Date End Date Skye Hernandez 4 [facility] [place] [address] PCP - General 08/11/18 01/02/22 Kimi Deleon MD [address] [place] [address] 05/16/20 Hannah Batres NP [address] [place] [address] 05/16/20 documented as of this encounter
--- OUTSIDE RECORDS SUMMARY | 2024-04-19 08:10 | XMS_ITS | Encounter Summary ---
Author Organization [facility] Address [address] [place] [address] Care Team Providers Care C Web Developer Name Role Phone Skye Hernandez Primary Care Provider [phone] Kimi Deleon MD Unavailable [phone] Hannah Batres NP Unavailable [phone] Reason for Visit * Reason Comments Other Encounter Details Date Type Department Care Team (Late st Contact Info) Description 09/03/2021 [facility] Hematology & Oncology - [facility] [address] [place] [address] Abebe Ralph MD 111 [facility], Level [address] [place] [address] Other Social History Tobacco Use [...] Telephone Encounter - Maddie Bobby RN - 09/03/2021 1542 EDT Called [facility] to verify script received 08/23/21 for celexa 10 mg po at . Verified with pharmacy rx is good to refill. documented in this encounter Plan of Treatment Upcoming Encounters Date Type Department Care Team (Late st Contact Info) Description 07/21/2024 11:00 EDT Office Visit [facility] Ophthalmology [address] [phone] Marcial Magaña MD [address] [place] [address], Level [address] [place] [phone] 07/25/2024 11:00 EDT Phlebotomy Only [facility] Hematology & Oncology [address] [phone] Blood Doctor, [facility] Hem Onc 07/25/2024 11:45 EDT Office Visit [facility] Hematology & Oncology [address] [phone] Abebe Ralph MD 111 [facility], [facility], Level [address] [place] [phone] 07/25/2024 12:30 EDT Appointment [facility] Cancer Center Hematology & Oncology - [address] 619351 01/03/2025 16:20 EDT Appointment [facility] Breast Imaging Mammography - [address] 401241 documented as of this encounter Visit Diagnoses Diagnosis Malignant neoplasm of upper-outer quadrant of right breast in female, estrogen receptor positive ([facility])- Primary Encounter for screening mammogram for malignant neoplasm of breast Other screening mammogram documented in this encounter Care Teams C Web Developer Relationship Specialty Start Date End Date Skye Hernandez [address] [place] [address] PCP - General 08/11/18 01/02/22 Kimi Deleon MD [address] [place] [address] 05/16/20 Hannah Batres NP [address] [place] [address] 05/16/20 documented as of this encounter
--- OUTSIDE RECORDS SUMMARY | 2024-04-19 08:10 | XMS_ITS | Encounter Summary ---
Author Organization [facility] Address [address] [place] [address] Care Team Providers Care Wave Solder Offbearer Name Role Phone Kimi Deleon MD Unavailable [phone] Hannah Batres NP Unavailable [phone] Millie Hilton MD Primary Care Provider [phone] Encounter Details Date Type Department Care Team (Late st Contact Info) Description 01/06/2022 Orders Only [facility] Cancer Center Hematology & Oncology - Main [place] [address] [place] [address] Lilo Garcia, RN [address] [place] [address] Estrogen receptor positive status (ER+) (Primary Dx); [...] documented in this encounter Progress Notes * Lilo Garcia RN - 01/06/2022 1618 EDT Treatment date changed to 02/03/22 documented in this encounter Plan of Treatment Upcoming Encounters Date Type Department Care Team (Late st Contact Info) Description 07/21/2024 11:00 EDT Office Visit [facility] Ophthalmology - [address] [phone] Marcial Magaña MD [address] [place] [address] 5 [place] [phone] 07/25/2024 11:00 EDT Phlebotomy Only [facility] Hematology & Oncology - [address] [phone] Blood Doctor, [facility] Hem Onc 07/25/2024 11:45 EDT Office Visit [facility] Hematology & Oncology [address] [phone] Abebe Ralph MD [address] [place] [address], [facility] 2 [place] [phone] 07/25/2024 12:30 EDT Appointment [facility] Cancer Center Hematology & Oncology - [address] [address] 01/03/2025 16:20 EDT Appointment [facility] Breast Imaging Mammography - [address] [address] documented as of this encounter Visit Diagnoses Diagnosis Estrogen receptor positive status (ER+)- Primary Estrogen receptor positive status [ER+] Other osteoporosis without current pathological fracture Encounter for screening mammogram for malignant neoplasm of breast Other screening mammogram documented in this encounter Orders Appointment Requests Count Last Ordered Date Fi rst Ordered Date ONCBCN INJECTION APPOINTMENT REQUEST 1 01/21 documented in this encounter Care Teams Wave Solder Offbearer Relationship Specialty Start Date End Date Millie Hilton MD 4 [place] [address] PCP - General 01/03/22 Kimi Deleon MD [address] [place] [address] 05/16/20 Hannah Batres NP [address] [place] [address] 05/16/20 documented as of this encounter
--- OUTSIDE RECORDS SUMMARY | 2024-04-19 08:10 | XMS_ITS | Encounter Summary ---
Author Organization [facility] Address [address] [place] [address] Care Team Providers Care Construction Contractor Name Role Phone Kimi Deleon MD Unavailable [phone] Hannah Batres NP Unavailable [phone] Millie Hilton MD Primary Care Provider [phone] Reason for Visit * Radiology Services (Routine/Next Available) - Specialty Report Received Specialty Diagnoses / Procedures [facility] Referred To Contact Diagnoses Malignant neoplasm of upper-outer quadrant of right breast in female, estrogen receptor positive (HCC-CMS) Procedures DXA BONE DENSITY Abebe Ralph MD Phone: tel: fax: Referral ID Status Reason Start Date Expiration Date V isits Requested Visits Authorized [id number] Specialty Report Received 10/11/2021 1 1 Encounter Details Date Type Department Care Team (Latest Contact Info) Description 01/06/2022 12:50 EDT Ancillary Procedure [facility] Endocrinology - [address] [address] Malignant neoplasm of upper-outer quadrant of right [...] - Inhaled Oxygen Concentration - - Weight 68.6 kg (151 lb 3.2 oz) 01/06/2022 1248 E DT Height 164.4 cm (5' 4.72) 01/06/2022 1248 EDT Body Mass Index 25.38 01/06/2022 1248 EDT documented in this encounter [...] Office Visit [facility] Ophthalmology - [address] [phone] Marcial Magaña MD [address] [place] [address], Level 5 [place] [phone] 07/25/2024 11:00 EDT Phlebotomy Only [facility] Hematology & Oncology [address] [phone] Blood Doctor, [facility] Hem Onc 07/25/2024 11:45 EDT Office Visit [facility] Hematology & Oncology [address] [address] Abebe Ralph MD 111 [facility], [facility], Level 2 [place] [phone] 07/25/2024 12:30 EDT Appointment [facility] Hematology & Oncology [address] [phone] 01/03/2025 16:20 EDT Appointment [facility] Breast Imaging Mammography - [address] [phone] documented as of this encounter Procedures Procedure Name Priority Date/Time Associated Diagnosis Comments DXA BONE DENSITY Routine 01/06/2022 13:08 EDT Malignant neoplasm of upper-outer quadrant of right breast in female, estrogen receptor positive ([facility]) documented in this encounter Results * DXA [...] mammogram documented in this encounter Care Teams Construction Contractor Relationship Specialty Start Date End Date Millie Hilton MD [address] [place], [place] [address] PCP - General 01/03/22 Kimi Deleon MD [address] [place] [phone] 05/16/20 Hannah Batres NP [address] [place] [address] 05/16/20 documented as of this encounter
--- OUTSIDE RECORDS SUMMARY | 2024-04-19 08:10 | XMS_ITS | Encounter Summary ---
Author Organization [facility] Address [address] [place] [address] Care Team Providers Care Toll Bridge Operator Name Role Phone Skye Hernandez Faiza Primary Care Provider [phone] Kimi Deleon MD Unavailable [phone] Hannah Batres NP Unavailable [phone] Reason for Visit * Reason Comments Follow-up * Prior Authorization (Routine) - Closed Specialty Diagnoses / Procedures Referred By [facility] Referred To Contact Diagnoses Exudative age-related macular degeneration of both eyes with active choroidal neovascularization ([facility]) Procedures ME INJECT INTRAVITREAL PHARMCOLOGIC ME AFLIBERCEPT INJECTION ME BEVACIZUMAB INJECTION Marcial Magaña MD Phone: tel: fax: Marcial Magaña MD Phone: tel: fax: Referral ID Status Reason Start Date Expiration Date Visits Re quested Visits Authorized [id number] Closed 04/19/2021 04/19/2022 13 13 Encounter Details Date Type Department Care Team (Late st Contact Info) Description 11/15/2021 10:30 EDT Office Visit [facility] Ophthalmology - [address] [address] Marcial Magaña MD 111 [facility], Level 5 [place] [address] Social History Tobacco Use Types [...] Progress Notes * Marcial Magaña MD - 11/15/2021 1030 EDT Chief Complaint Patient presents with ??? Follow-up Comments Pt here for 7 week f/u for Wet AMD both S/P Eylea right (09-27-21) left (08-23-21) [place] stable both. No floaters or flashes. No pain HPI Location: Both eyes Pain: 0 - No pain Quality: Blurry Severity: Moderate Duration: Years Timing: Constant Lasts: Continuous Context: [place] stable both. No floaters or flashes. No pain Modifying factors: S/P Eylea right (09-27-21) left (08-23-21) Associated Signs & Symptoms: Wet AMD both Visual Fluctuations: None Attestation: Base Eye Exam Visual Acuity (Snellen - Linear) Right Left Dist sc 20/30 -2 20/25 Dist ph sc NI NI Tonometry (Applanation, 10:54) Right Left Pressure 12 13 Neuro/Psych Oriented x3: Yes Mood/Affect: Normal Dilation Both eyes: Phenylephrine 2.5%, Tropicamide 1% @ 10:54 Slit Lamp and Fundus Exam Slit Lamp [...] stable. Findings include pigment epithelial detachment. Notes no fluid both eyes Intravitreal Injection, Pharmacologic Agent - OU - Both Eyes Time Out 11/15/2021. 11:32. Confirmed correct patient, procedure, site, and patient consented. Anesthesia Right Eye Topical anesthesia was used. Anesthetic medications included Proparacaine 0.5%, Tetracaine 0.5%. Left Eye Topical anesthesia was used. Anesthetic medications included Proparacaine 0.5%, Tetracaine 0.5%. Procedure Right Eye Preparation included 5% betadine to ocular surface, eyelid speculum. A 30 gauge needle was used. Injection: 2 mg aflibercept (EYLEA) intravitreal syringe NDC: 57618-532-90, Lot: [id number], Expiration date: 04/23/2022 Route: intravitreal, Site: Right Eye Left Eye Preparation included 5% betadine to ocular surface, eyelid speculum. A 30 gauge needle was used. Injection: 2 mg aflibercept (EYLEA) intravitreal syringe NDC: 20174-652-68, Lot: [id number], Expiration date: 04/23/2022 Route: intravitreal, Site: Left Eye Post-op Right Eye Post injection exam found [...] of both eyes with active choroidal neovascularization([facility]) ([facility]) OCT, RETINA - OU - BOTH EYES [...] fovea??13 weeks S/P Eylea left eye. Offer Eylea??both eyes??today and??continue every??7 weeks??for right eye??and 14 weeks for the left. Patient agrees ?? Nuclear??cataract both eyes Not visually significant Observe Return in about 7 weeks (around 01/03/2022), or if symptoms worsen or fail to improve, for OCT Macular, Eylea, right eye. I have reviewed the past medical, family, [...] Info) Description 07/21/2024 11:00 EDT Office Visit [facility] Ophthalmology - [address] [address] Marcial Magaña MD [address] [place] [address], [facility] 5 [place] [phone] 07/25/2024 11:00 EDT Phlebotomy Only [facility] Hematology & Oncology - [address] 466111 Blood Doctor, [facility] Hem Onc 07/25/2024 11:45 EDT Office Visit [facility] Hematology & Oncology - [address] [address]13[address] Abebe Ralph MD [address] [place] [address], [facility] 2 [place] [phone] 07/25/2024 12:30 EDT Appointment [facility] Hematology & Oncology - [address] [phone] 01/03/2025 16:20 EDT Appointment [facility] Breast Imaging Mammography - [address] [phone] documented as of this encounter Procedures Procedure Name Priority Date/Time Associated Diagnosis Comments INTRAVITREAL INJECTION, PHARMACOLOGIC AGENT - OU - BOTH EYES Routine 11/15/2021 11:39 EDT Exudative age-related macular degeneration of both eyes with active choroidal neovascularization (HCC-CMS) ([facility]) OCT, RETINA - OU - BOTH EYES Routine 11/15/2021 11:20 EDT Exudative age-related macular degeneration of both eyes with active choroidal neovascularization (HCC-CMS) ([facility]) documented in this encounter Results * INTRAVITREAL INJECTION, PHARMACOLOGIC AGENT - OU - BOTH EYES (11/15/2021 11:39 EDT) Narrative [facility] POINT OF CARE - 11/15/2021 12:00 EDT Time Out 11/15/2021. 11:32. Confirmed correct patient, procedure, site, and patient consented. Anesthesia Right Eye Topical anesthesia was used. Anesthetic medications included Proparacaine 0.5%, Tetracaine 0.5%. Left Eye Topical anesthesia was used. Anesthetic medications included Proparacaine 0.5%, Tetracaine 0.5%. Procedure Right Eye Preparation included 5% betadine to ocular surface, eyelid speculum. A 30 gauge needle was used. Injection: 2 mg aflibercept (EYLEA) intravitreal syringe ??NDC: 76295-351-02, Lot: [id number], Expiration date: 04/23/2022 ??Route: intravitreal, Site: Right Eye Left Eye Preparation included 5% betadine to ocular surface, eyelid speculum. A 30 gauge needle was used. Injection: 2 mg aflibercept (EYLEA) intravitreal syringe ??NDC: 80285-041-54, Lot: [id number], Expiration date: 04/23/2022 ??Route: intravitreal, Site: Left Eye Post-op Right Eye Post injection exam found [...] education. Post injection medications were not given. us Marcial Magaña MD OPHTH CLINIC PROCEDURES Final Re sult [facility] POINT OF CARE * OCT, RETINA - OU - BOTH EYES (11/15/2021 11:20 EDT) Narrative [facility] POINT OF CARE - 11/15/2021 11:58 EDT Right Eye Quality was good. Scan locations included subfoveal. Progression has been stable. Findings include pigment epithelial detachment. Left Eye Quality was good. Scan locations included subfoveal. Progression has been stable. Findings include pigment epithelial detachment. 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 (HCC-CMS) Given 11/15/2021 11:32 EDT 2 mg Right E ye aflibercept (EYLEA) intravitreal syringe 2 mg 2 mg, intravitreal, Starting on Thu11/15/21 at 1132, Until Thu11/15/21 at 1400, RoutineIndications:Exudative age-related macular degeneration of both eyes with active choroidal neovascularization (HCC-CMS) Given 11/15/2021 11:32 EDT 2 mg Left Ey e documented in this encounter Orders Medications Ordered That Trevor ht Not Have Been Administered Count Last Ordered Date First Ordered Date aflibercept (EYLEA) intravit real syringe 2 mg 1 11/15/2021 documented in this encounter Eye Exam Visual Acuity (Snellen - Linear) Right eye Left eye Dist sc 20/30 -2 20/25 Dist ph sc NI NI Tonometry (Applanation, 10:54) Right eye Left eye Pressure 12 13 Neuro/Psych Oriented x3: Yes Mood/Affect: Normal Dilation Both eyes: Phenylephrine 2.5 %, Tropicamide 1% @ 10:54 Slit Lamp Exam Right eye Left eye [...] sions Attached without predisposing lesions Care Teams Toll Bridge Operator Relationship Specialty Start Date End Date Skye Hernandez [address] [place] [address] PCP - General 08/11/18 01/02/22 Kimi Deleon MD [address] [place] [phone] 05/16/20 Hannah Batres NP [address] [place] [address] 05/16/20 documented as of this encounter
--- OUTSIDE RECORDS SUMMARY | 2024-04-19 08:10 | XMS_ITS | Encounter Summary ---
Author Organization [facility] Address [address] [place] [address] Care Team Providers Care Master Mechanic Name Role Phone Skye Hernandez Primary Care Provider Kimi Deleon MD Unavailable Hannah Batres NP Unavailable [phone] Encounter Details Date Type Department Care Team (Late st Contact Info) Description 09/10/2021 Orders Only [facility] Hematology & Oncology - Main [place] [address] [place] [address] Alma Garcia RN Social History [...] in this encounter Progress Notes * Alma Garcia RN - 09/10/2021 1023 EDT Prior auth submitted to PA team for Prolia. documented in this encounter Plan of Treatment Upcoming Encounters Date Type Department Care Team (Late st Contact Info) Description 07/21/2024 11:00 EDT Office Visit [facility] Ophthalmology [address] [address]281 Marcial Magaña MD [address] [place] [address] 5 [place] [phone] 07/25/2024 11:00 EDT Phlebotomy Only [facility] Hematology & Oncology [address] [phone] Blood Doctor, [facility] Hem Onc 07/25/2024 11:45 EDT Office Visit [facility] Hematology & Oncology [address] [phone] Abebe Ralph MD [address] [place] [address], [facility] 2 [place] [phone] 07/25/2024 12:30 EDT Appointment [facility] Hematology & Oncology [address] [address] 01/03/2025 16:20 EDT Appointment [facility] Breast Imaging Mammography - [facility] [address] [place] [address] documented as of this encounter Visit Diagnoses Not on filedocumented in this encounter Care Teams Master Mechanic Relationship Specialty Start Date End Date Skye Hernandez [address] [place] [address] PCP - General 08/11/18 01/02/22 Kimi Deleon MD [address] [place] [phone] 05/16/20 Hannah Batres NP [address] [place] [address] 05/16/20 documented as of this encounter
--- OUTSIDE RECORDS SUMMARY | 2024-04-19 08:10 | XMS_ITS | Encounter Summary ---
Author Organization [facility] Address [address] [place] [address] Care Team Providers Care Contact Center Analyst Name Role Phone Skye Hernandez Primary Care Provider [phone] Kimi Deleon MD Unavailable [phone] Hannah Batres NP Unavailable [phone] Reason for Visit * Reason Comments Follow-up Injections Encounter Details Date Type Department Care Team (Late st Contact Info) Description 09/11/2021 13:15 EDT Office Visit [facility] Center Hematology & Oncology - [address] [address] Abebe Ralph MD 111 [facility], Level 2 [place] [address] Malignant neoplasm of upper-outer quadrant [...] Sign Reading Time Taken Comments Blood Pressure 154/71 09/11/2021 1315 EDT Pulse 47 09/11/2021 1315 EDT Temperature 36 ??C (96.8 ??F) 09/11/2021 1315 EDT Respiratory Rate 16 09/11/2021 1315 EDT Oxygen Saturation 100% 09/11/2021 1315 EDT Inhaled Oxygen Concentration - - Weight 68.9 kg (151 lb 14.4 oz) 09/11/2021 1315 EDT Height 163.4 cm (5' 4.33) 09/11/2021 1315 EDT Body Mass Index 25.81 09/11/2021 1315 EDT documented in this encounter [...] Progress Notes * Abebe Ralph MD - 09/11/2021 1315 EDT Subjective Jeffery Garvey is a 70 [...] cm cancer, 0/3 sentinel nodes, grade 2, ER/RI+, HER-2 negative (IHC = 0). LVI negative. Onco-DX = 16. B. S/B WL is/XRT, 12/09. C. Adjuvant tamoxifen, 12/09. 1. Severe ongoing vasomotor symptoms. 2. Celexa, ongoing. D. Adjuvant femara, 06/10. 1. Rx hold, 09/11. ?? 1. Osteoporosis. A. Prior therapy with alendronate >> poor tolerance. B. 2-year course of Forteo, completed 09/08. C. Prolia, 12/09. ?? 2. Macular degeneration, wet. A. Ongoing treatment >> a flu percept. HPI: Jeffery Garvey returns in follow-up, continuing on adjuvant Femara. Her hot flashes overall continued to be well controlled at present. She however has been developing increasing musculoskeletalsymptoms probably over about the last 6 or 8 weeks or so. This began initially with low back pain. This is not particular associated with physical activity or exercise or other exacerbating factors that she was aware of. Over the next few weeks however she developed intermittent and worsening discomfort in both of her lips as well as throughout both of her legs. She does note that the symptoms are worse first thing in the morning when she awakens, and also has a sense that they are worse when she has been immobile for period of time during the day. She does not have a sense they are alleviated with physical activity, nor does physical activity seem to aggravate them. She is otherwise been feeling well except for increasing pain in her right knee which has been undergoing a fairly long evaluation and work-up, she relates that she has been found to have severe osteoarthritis of that knee and is scheduled for a partial knee replacement at [facility], 09/30. She is had no signs or symptoms suggestive of recurrent disease, she is had no breast complaints, she has had no other significant interval illnesses arise. ROS Except as noted above in the HPI, Jeffery Garveys full remaining 10 point review of systems, including constitutional, cardiac, pulmonary, GI, /TERRA [place], neurologic, musculoskeletal, HEENT, psychiatric, and endocrine, and [...] at [facility]) ??? Fish Oil-[place]-3 Fatty Acids (FISH OIL) 360-1,200 mg capsule [...] Take 1 Tablet by mouth at bedtime. (Patient not taking:Reported on 09/11/2021) ??? Multivitamins with Minerals tablet tablet Take 1 Tab by mouth daily. (contains calcium 25 mg, vitamin D 1000 iu) ??? vitamin B complex (B COMPLEX 1 ORAL) Take 1 caplet by mouth daily. Vitals: 09/11/21 1315 BP: (!) 154/71 Pulse: (!) 47 Resp: 16 Temp: 36 ??C (96.8 ??F) TempSrc: Skin SpO2: 100% Weight: 68.9 kg (151 lb 14.4 oz) Height: 163.4 cm (64.33) Wt Readings from Last 3 Encounters: 09/11/21 68.9 kg (151 lb 14.4 oz) 03/13/21 68.5 kg (151 lb 1.6 oz) 02/08/21 68.2 kg (150 lb 4.8 oz) Physical Exam Objective: Jeffery Garvey is [...] Garvey returns in follow-up, as above. 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 What I recommended is that we put her letrozole on hold at present which she will proceed with. Will reevaluate in 4 to 6 weeks or so. As I noted above she has upcoming knee replacement scheduled at [facility] 09/30 as well and for this we will hold her Prolia at present. I spent a total of 50 minutes [...] Visit [facility] Ophthalmology [address] [phone] Marcial Magaña MD [address] [place] [address], Level [address] [place] [phone] 07/25/2024 11:00 EDT Phlebotomy Only [facility] Hematology & Oncology [address] [phone] Blood Doctor, [facility] Hem Onc 07/25/2024 11:45 EDT Office Visit [facility] Hematology & Oncology - [address] [phone] Abebe Ralph MD 111 [facility], [facility], Level [address] [place] [address] 07/25/2024 12:30 EDT Appointment [facility] Hematology & Oncology - [address] [phone] 01/03/2025 16:20 EDT Appointment [facility] Breast Imaging Mammography - [address] [phone] documented as of this encounter Visit Diagnoses Diagnosis Malignant neoplasm of upper-outer quadrant of right breast in female, estrogen receptor positive ([facility]-CMS)- Primary Encounter for screening mammogram for malignant neoplasm of breast Other screening mammogram documented in this encounter Care Teams Contact Center Analyst Relationship Specialty Start Date End Date Skye Hernandez [address] [place] [address] PCP - General 08/11/18 01/02/22 Kimi Deleon MD [address] [place] [address] 05/16/20 Hannah Batres NP [address] [place] [address] 05/16/20 documented as of this encounter
--- OUTSIDE RECORDS SUMMARY | 2024-04-19 08:10 | XMS_ITS | Encounter Summary ---
Author Organization [facility] Address [address] [place] [address] Care Team Providers Care Power Plant Operator Apprentice Name Role Phone Skye Hernandez Primary Care Provider Kimi Deleon MD Unavailable [phone] Hannah Batres NP Unavailable [phone] Encounter Details Date Type Department Care Team (Latest Contact Info) Description 12/13/2021 Transcribe Orders [facility] - Main [place] [address] [place] [address] Millie Hilton MD [address] [place] [address] Hyperlipidemia, unspecified hyperlipidemia type (Primary Dx) Social History Tobacco Use Types [...] Info) Description 07/21/2024 11:00 EDT Office Visit [facility] Ophthalmology - [address] [address] Marcial Magaña MD [address] [place] [address], [facility] 5 [place] [phone] 07/25/2024 11:00 EDT Phlebotomy Only [facility] Hematology & Oncology [address] 889481 Blood Doctor, [facility] Hem Onc 07/25/2024 11:45 EDT Office Visit [facility] Hematology & Oncology [address] 566211 Abebe Ralph MD [address] [place] [address], Level [address] [place] [phone] 07/25/2024 12:30 EDT Appointment [facility] Hematology & Oncology [address] [phone] 01/03/2025 16:20 EDT Appointment [facility] Breast Imaging Mammography - Main [place] [address] [place] [address] documented as of this encounter Results * (ABNORMAL) LIPID PROFILE (INCLUDES CHOLESTEROL, TRIGLYCERIDES, HDL, LDL) (01/03/2022 8:57 EDT) Cholesterol 218(H) <200 mg/dL 01/07/2022 13:34 EDT [facility] Comment:Note that therapeuti c goals will differ between patients based on cardiac risk factors and current medical therapy. HDL 51 >=50 mg/dL 01/07/2022 13:34 EDT [facility] Comment:Note that therapeuti c goals will differ between patients based on cardiac risk factors and current medical therapy. LDL, Calculated 146 <160 mg/dL 13:34 EDT [facility] Comment:Note that therapeuti c goals will differ between patients based on cardiac risk factors and current medical therapy. Triglyceride 104 <=150 mg/dL 01/07/2022 13:34 EDT [facility] Comment:Note that therapeuti c goals will differ between patients based on cardiac risk factors and current medical therapy. Chol/HDL Ratio 4.3 See Note 01/07/2022 13:34 T [facility] Comment:No reference range h as been established for CHOL/HDL ratio. Non HDL Cholesterol 167(H) <160 mg/dL 01/07/2022 13:34 T [facility] Comment:Note that therapeuti c goals will differ between patients based on cardiac risk factors and current medical therapy. Blood VENOUS BLOOD / Unknown Venipuncture / Unknown 01/03/2022 8:57 EDT 01/03/2022 9:01 EDT us Millie Hilton MD CHEMISTRY & BLOOD GAS ORDERAB LES Final Result [facility] [address] [place] [address] documented in this encounter Visit Diagnoses Diagnosis Hyperlipidemia, unspecified hyperlipidemia type- Primary Encounter for screening mammogram for malignant neoplasm of breast Other screening mammogram documented in this encounter Care Teams Power Plant Operator Apprentice Relationship Specialty Start Date End Date Skye Hernandez [address] [place] [address] PCP - General 08/11/18 01/02/22 Kimi Deleon MD [address] [place] [phone] 05/16/20 Hannah Batres NP [address] [place] [address] 05/16/20 documented as of this encounter
--- OUTSIDE RECORDS SUMMARY | 2024-04-19 08:10 | XMS_ITS | Encounter Summary ---
Author Organization [facility] Address [address] [place] [address] Care Team Providers Care Body Work Auto Trimmer Name Role Phone Kimi Deleon MD Unavailable [phone] Hannah Batres NP Unavailable [phone] Millie Hilton MD Primary Care Provider Reason for Visit * Episode Based Medications (Routine) - Authorized Specialty Diagnoses / Procedures Referred By Contac t Referred To Contact Diagnoses Estrogen receptor positive status (ER+) Other osteoporosis without current pathological fracture Abebe Ralph MD [address] [place] [address] 2 [place] [address] Phone: tel: fax: [facility] Hematology & Oncology [address] [address] Phone: tel: fax: Referral ID Status Reason Start Date Expiration Date V isits Requested Visits Authorized [id number] Authorized 09/09/2021 01/24/2026 5 10 Encounter Details Date Type Department Care Team (Latest Contact Info) Description 02/05/2022 11:11 EST - 02/05/2022 13:06 EST Hospital Encounter [facility] Hematology & Oncology [address] [phone] Malignant neoplasm of upper-outer quadrant of right female breast, unspecified estrogen receptor status ([facility]) (Primary Dx); Estrogen receptor positive status [...] (started 12/16/18 at [facility]) Fish Oil-[place]-3 Fatty Acids 360-1,200 mg capsule 1360mg, 2 [...] Progress Notes * Sally Zavala RN - 02/05/2022 1300 EST Jeffery is here for cycle 3 of treatment with denosumab. She meets criteria for treatment. Jeffery is taking vitamin D and calcium daily. She did not have any questions regarding her medication. I administered the SC injection into her left arm and it was tolerated well. I was supervised by Dr. Killian who was present at the clinic and immediately available. Sally Zavala RN 02/05/22 documented in this encounter Miscellaneous Notes * Addendum Note - Trinity Dunham - 02/05/2022 1300 ESTEncounter addended by: Trinity Dunham on: 02/21/2022 12:27 Actions taken: Charge Capture section accepted documented in this encounter Plan of Treatment Upcoming Encounters Date Type Department Care Team (Late st Contact Info) Description 07/21/2024 11:00 EDT Office Visit [facility] Ophthalmology - [address] [phone] Marcial Magaña MD [address] [place] [address] 5 [place] [phone] 07/25/2024 11:00 EDT Phlebotomy Only [facility] Hematology & Oncology [address] [phone] Blood Doctor, [facility] Hem Onc 07/25/2024 11:45 EDT Office Visit [facility] Hematology & Oncology [address] [phone] Abebe Ralph MD [address] [place] [address], [facility] [address] [place] [phone] 07/25/2024 12:30 EDT Appointment [facility] Hematology & Oncology [address] [phone] 01/03/2025 16:20 EDT Appointment [facility] Breast Imaging Mammography - [address] [phone] documented as of this encounter Results * MAGNESIUM (02/05/2022 11:18 EST) Magnesium 2.3 1.7 - 2.8 mg/dL 02/05/2022 12:58 EST [facility] Blood VENOUS BLOOD / Unknown Venipuncture / Unknown 02/05/2022 11:18 EST 02/05/2022 11:22 EST us Xena Nieves PA-C CHEMISTRY & BLOOD GAS ORD ERABLES Final Result [facility] [address] [place] [address] documented in this encounter Visit Diagnoses Diagnosis Malignant neoplasm of upper-outer quadrant of right female breast, unspecified estrogen receptor status ([facility])- Primary Estrogen receptor positive status (ER+) Estrogen [...] mg, subcutaneous, NOW X1, 1 dose, On Thu02/05/22 at 1300, RoutineIndications:Estrogen receptor positive status (ER+),Other osteoporosis without current pathological fracture Given 02/05/2022 12:52 EST 60 mg Left Arm documented in this encounter Orders Medications Ordered That Trevor ht Not Have Been Administered Count Last Ordered Date First Ordered Date denosumab (PROLIA) syringe 60 mg 1 02/06/20 Appointment Requests Count Last Ordered Date Fi rst Ordered Date ONCBCN INJECTION APPOINTMENT REQUEST 1 01/21 documented in this encounter Care Teams Body Work Auto Trimmer Relationship Specialty Start Date End Date Millie Hilton MD [address] [place] [address] PCP - General 01/03/22 Kimi Deleon MD [address] [place] [address] 05/16/20 Hannah Batres NP [address] [place] [address] 05/16/20 documented as of this encounter
--- OUTSIDE RECORDS SUMMARY | 2024-04-19 08:10 | XMS_ITS | Encounter Summary ---
Author Organization [facility] Address [address] [place] [address] Care Team Providers Care Graphite Disk Assembler Name Role Phone Skye Hernandez Primary Care Provider Kimi Deleon MD Unavailable Hannah Batres NP Unavailable [phone] Reason for Visit * Reason Onset Date Comments Labs Only 12/27/2021 Encounter Details Date Type Department Care Team (Late st Contact Info) Description 12/27/2021 Telephone [facility] Hematology & Oncology - [address] [address] Abebe Ralph MD 111 [facility], [facility] 2 [place] [address] Labs Only Social History Tobacco Use Types Packs/Day Years [...] * Telephone Encounter - Tien Maier - 12/27/2021 1342 EDT lmom for pt about 01/03 at 12 labs left APC# * Telephone Encounter - Maddie Bobby RN - 12/27/2021 1325 EDT Patient okay to get labs 01/03 rather than 01/06. See my chart message * Telephone Encounter - Em Nguyen - 12/27/2021 1121 EDT Patient is asking if she can get her labs drawn on 01/03 instead of 01/06. Patient has an early childhood education worker appoint on 01/03 at the [facility] and is wondering will that be ok. Please advise documented in this encounter Plan of Treatment Upcoming Encounters Date Type Department Care Team (Late st Contact Info) Description 07/21/2024 11:00 EDT Office Visit [facility] Ophthalmology - [address] [phone] Marcial Magaña MD 111 [facility], Level [address] [place] [phone] 07/25/2024 11:00 EDT Phlebotomy Only [facility] Hematology & Oncology [address] [phone] Blood Doctor, [facility] Hem Onc 07/25/2024 11:45 EDT Office Visit [facility] Hematology & Oncology [address] [phone] Abebe Ralph MD [address] [place] [address], [address] [place] [phone] 07/25/2024 12:30 EDT Appointment [facility] Hematology & Oncology [address] [address] 01/03/2025 16:20 EDT Appointment [facility] Breast Imaging Mammography - [address] [phone] documented as of this encounter Visit Diagnoses Not on filedocumented in this encounter Care Teams Graphite Disk Assembler Relationship Specialty Start Date End Date Skye Hernandez [address] [place] [address] PCP - General 08/11/18 01/02/22 Kimi Deleon MD [address] [place] [phone] 05/16/20 Hannah Batres NP [address] [place] [address] 05/16/20 documented as of this encounter
--- OUTSIDE RECORDS SUMMARY | 2024-04-19 08:11 | XMS_ITS | Encounter Summary ---
Author Organization [facility] Address [address] [place] [address] Care Team Providers Care Engineering Aide Name Role Phone Skye Hernandez Primary Care Provider [phone] Kimi Deleon MD Unavailable [phone] Hannah Batres NP Unavailable [phone] Reason for Visit * Reason Comments Breast Cancer Encounter Details Date Type Department Care Team (Late st Contact Info) Description 02/08/2021 9:00 EST Office Visit [facility] Cancer Treatment [address] [address] Malignant neoplasm of upper-outer quadrant of right [...] Sign Reading Time Taken Comments Blood Pressure 165/68 02/08/2021 0902 EST Pulse 46 02/08/2021 0902 EST Temperature - - Respiratory Rate - - Oxygen Saturation - - Inhaled Oxygen Concentration - - Weight 68.2 kg (150 lb 4.8 oz) 02/08/[address] Height - - Body Mass Index 25.44 09/03/2020 0941 EDT documented in this encounter Functional Status [...] documented in this encounter Progress Notes * Ronni Castro MD - 02/08/2021 0900 EST Patient Name: Jeffery Garvey (1950) Patient Provider: Ronni Castro MD Date of service: 02/08/2021 Radiation Oncology Follow-Up Note Identification/Chief Compliant Jeffery Garvey is a 70 y.o. 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 Ms. Garvey presents today for routine follow-up. Interval History Ms. Garvey remains on Letrozole. She is tolerating this well, with fewer hot flashes than prior, using celexa and acupuncture. Reports no problems with mobility of the right arm and has no painor swelling. Denies new lumps/bumps. Her mammogram 08/29/20 was BI-RADS2, benign. Pain scale 0 / 10 Performance Status: 0: Fully active, able to carry on all pre-disease performance without restriction General: Well-appearing female in no apparent distress. HEENT: Anicteric sclera. Pupils equally round and reactive to light and accommodation. Extra-ocularmovements intact. Breast: Well healed right axillary/lumpectomy scars. Right breast with faint erythema, no induration, no abnormal masses, no discharge. Left breast unremarkable. Respiratory: Clear, unlabored breathing. Abdomen: Non-distended. Extremities: No lower extremity edema. MSK: Moves all extremities without difficulty. Neurologic: Cranial nerves II through XII grossly intact. 5/5 symmetric strength of the bilateral upper and lower extremities. No dysarthria or dysmetria. Dermatologic: No skin rashes, or jaundice. Labs Lab Results Component Value Date WBC 4.63 09/03/2020 HGB 12.9 09/03/2020 HCT 39.3 09/03/2020 PLT 221 09/03/2020 Lab Results Component Value Date CREATININE 0.72 09/03/2020 BUN 22 09/03/2020 NA 141 09/03/2020 K 4.8 09/03/2020 CL 104 09/03/2020 CO2 25 09/03/2020 CALCIUM 9.5 09/03/2020 Assessment/Plan Ms. Garvey is 2 years 2 months out form adjuvant RT with no evidence of disease. She has grade I edema of the left breast that is asymptomatic. We discussed that PT could be done if this worsens, but I am not concerned about it at this time. She will follow up with rad onc in 1 year. She has follow up with Dr. Ralph in [facility]. I spent a total of 20 minutes on the date of this encounter meeting with the patient and reviewing documentation/coordinating care as described in the above note. No procedures were performed at the time of the visit. Ronni Castro MD Vending Machine Technician of Radiation Oncology [facility] documented in this encounter Plan of Treatment Upcoming Encounters Date Type Department Care Team (Late st Contact Info) Description 07/21/2024 11:00 EDT Office Visit [facility] Ophthalmology - [address] [address] Marcial Magaña MD [address] [place] [address] 5 [place] [phone] 07/25/2024 11:00 EDT Phlebotomy Only [facility] Hematology & Oncology [address] 580401 Blood Doctor, [facility] Hem Onc 07/25/2024 11:45 EDT Office Visit [facility] Hematology & Oncology [address] [phone] Abebe Ralph MD [address] [place] [address], Level [address] [place] [phone] 07/25/2024 12:30 EDT Appointment [facility] Hematology & Oncology [address] [address] 01/03/2025 16:20 EDT Appointment [facility] Breast Imaging Mammography - [address] [phone] documented as of this encounter Visit Diagnoses Diagnosis Malignant neoplasm of upper-outer quadrant of right breast in female, estrogen receptor positive ([facility])- Primary Encounter for screening mammogram for malignant neoplasm of breast Other screening mammogram documented in this encounter Care Teams Engineering Aide Relationship Specialty Start Date End Date Skye Hernandez 4 [place] [address] PCP - General 08/11/18 01/02/22 Kimi Deleon MD [address] [place] [phone] 05/16/20 Hannah Batres NP [address] [place] [address] 05/16/20 documented as of this encounter
--- OUTSIDE RECORDS SUMMARY | 2024-04-19 08:11 | XMS_ITS | Encounter Summary ---
Author Organization [facility] Address [address] [place] [address] Care Team Providers Care Health Service Worker Name Role Phone Skye Hernandez Faiza Primary Care Provider Kimi Deleon MD Unavailable [phone] Hannah Batres NP Unavailable [phone] Reason for Visit * Reason Comments Eye Problem * Prior Authorization (Routine) - Closed Specialty Diagnoses / Procedures [facility] Referred To Contact Diagnoses Exudative age-related macular degeneration of both eyes with active choroidal neovascularization ([facility]) Procedures RI INJECT INTRAVITREAL PHARMCOLOGIC RI AFLIBERCEPT INJECTION RI BEVACIZUMAB INJECTION Marcial Magaña MD Phone: tel: fax: Marcial Magaña MD Phone: tel: fax: Referral ID Status Reason Start Date Expiration Date Visits Re quested Visits Authorized [id number] Closed 04/19/2021 04/19/2022 13 13 Encounter Details Date Type Department Care Team (Late st Contact Info) Description 07/12/2021 12:45 EDT Office Visit [facility] Ophthalmology - [address] [address] Marcial Magaña MD [address] [facility], Level [address] [place] [address] Social History Tobacco Use Types [...] Progress Notes * Marcial Magaña MD - 07/12/2021 1245 EDT Chief Complaint Patient presents with ??? Eye Problem Comments 6 week f/u Eylea right eye. S/p Eylea both eyes 05/31/21. Wet AMD both eyes. NSC both eyes. Vision seems the same. No pain or flashes. Usual floaters. No drops. HPI Location: Both eyes Pain: 0 - No pain Quality: Severity: Moderate Duration: Years Timing: Constant Lasts: Continuous Context: 6 week f/u Eylea right eye. S/p Eylea both eyes 05/31/21. Wet AMD both eyes. NSC both eyes.Vision seems the same. No pain or flashes. Usual floaters. No drops. Modifying factors: S/p Eylea both eyes 05/31/21. Associated Signs & Symptoms: Vision seems the same. No pain or flashes. Usual floaters. Visual Fluctuations: Floaters (Usual floaters.) Attestation: Base Eye Exam Visual Acuity (Snellen - Linear) Right Left Dist sc 20/40 -1 20/30 -2 Dist ph sc 20/40 +2 20/20 -2 Tonometry (Applanation, 13:02) Right Left Pressure 16 16 Pupils Pupils Dark Light Shape React APD Right PERRL 3 2 Round Brisk None Left PERRL 3 2 Round Brisk None Extraocular Movement Right Left Full, Ortho Full, Ortho Neuro/Psych Oriented x3: Yes Mood/Affect: Normal Dilation Both eyes: Tropicamide 1%, Phenylephrine 2.5% @ 13:02 Slit Lamp and Fundus Exam Slit Lamp [...] stable. Findings include pigment epithelial detachment. Notes Both eyes: No fluid Intravitreal Injection, Pharmacologic Agent - OD - Right Eye Time Out 07/12/2021. 13:58. Confirmed correct patient, procedure, site, and patient consented. Anesthesia Topical anesthesia was used. Anesthetic medications included Proparacaine 0.5%, Tetracaine 0.5%. Procedure Preparation included eyelid speculum, 5% betadine to ocular surface. A 30 gauge needle was used. Injection: 2 mg aflibercept (EYLEA) intravitreal syringe [facility]: 34298-324-46, Lot: [id number], Expiration date: 02/20/2022 Route: intravitreal, Site: Right Eye Post-op Post injection exam found visual acuity of at least counting fingers. The patient tolerated the procedure well. There were no complications. The patient received written and verbal post procedure care education. Post injection medications were not given. DIAGNOSES: 1. Exudative age-related macular degeneration of both eyes with active choroidal neovascularization([facility]) ([facility]) OCT, RETINA - OU - BOTH EYES INTRAVITREAL INJECTION, PHARMACOLOGIC AGENT - OD - RIGHT EYE aflibercept (EYLEA) intravitreal syringe 2 mg Assessment Wet age-related macular degeneration??both eyes?? Improved vision with resolution of SRF??6??weeks s/p Eylea??right eye Stable 20/25 vision with??resolution of??SRF sliver superior to fovea??12 weeks S/P Eylea left eye. Offer Eylea??right eye??today and??continue every??6 weeks??for right eye??and 12 weeks for the left. Patient agrees ?? Nuclear??cataract both eyes Not visually significant Observe Return 6 weeks/PRN Eylea both eyes I have reviewed the past medical, family, [...] 07/21/2024 11:00 EDT Office Visit [facility] Ophthalmology - [address] [phone] Marcial Magaña MD [address] [facility], Level [address] [place] [address] 07/25/2024 11:00 EDT Phlebotomy Only [facility] Hematology & Oncology - [address] [phone] Blood Doctor, [facility] Hem Onc 07/25/2024 11:45 EDT Office Visit [facility] Hematology & Oncology - [address] [address] Abebe Ralph MD 111 [facility], Level [address] [place] [phone] 07/25/2024 12:30 EDT Appointment [facility] Hematology & Oncology - [address] [phone] 01/03/2025 16:20 EDT Appointment [facility] Breast Imaging Mammography - [address] [phone] documented as of this encounter Procedures Procedure Name Priority Date/Time Associated Diagnosis Comments INTRAVITREAL INJECTION, PHARMACOLOGIC AGENT - OD - RIGHT EYE Routine 07/12/2021 14:05 EDT Exudative age-related macular degeneration of both eyes with active choroidal neovascularization (HCC-CMS) ([facility]) OCT, RETINA - OU - BOTH EYES Routine 07/12/2021 13:49 EDT Exudative age-related macular degeneration of both eyes with active choroidal neovascularization (HCC-CMS) ([facility]) documented in this encounter Results * INTRAVITREAL INJECTION, PHARMACOLOGIC AGENT - OD - RIGHT EYE (07/12/2021 14:05 EDT) Narrative [facility] POINT [facility] CARE - 07/15/2021 13:08 EDT Time Out 07/12/2021. 13:58. Confirmed correct patient, procedure, site, and patient consented. Anesthesia Topical anesthesia was used. Anesthetic medications included Proparacaine 0.5%, Tetracaine 0.5%. Procedure Preparation included eyelid speculum, 5% betadine to ocular surface. A 30 gauge needle was used. Injection: 2 mg aflibercept (EYLEA) intravitreal syringe ??[facility]: 97650-916-66, Lot: [id number], Expiration date: 02/20/2022 ??Route: intravitreal, Site: Right Eye Post-op Post injection exam found visual acuity of at least counting fingers. The patient tolerated the procedure well. There were no complications. The patient received written and verbal post procedure care education. Post injection medications were not given. Marcial Magaña MD OPHTH CLINIC PROCEDURES Final Re sult Performing Organization Address [facility] Co de Phone Number [facility] POINT [facility] CARE * OCT, RETINA - OU - BOTH EYES (07/12/2021 13:49 EDT) Narrative [facility]INT [facility]ARE - 07/15/2021 13:08 EDT Right Eye Quality was good. Scan locations included subfoveal. Progression has been stable. Findings include pigment epithelial detachment. Left Eye Quality was good. Scan locations included subfoveal. Progression has been stable. Findings include pigment epithelial detachment. Notes Both eyes: No fluid Marcial Magaña MD OPHTH TOMOGRAPHY Final Result Performing Organization Address [facility] de Phone Number [facility] documented in this encounter Visit Diagnoses Diagnosis [...] 2 mg 2 mg, intravitreal, Starting on Thu07/12/21 at 1405, Until Thu07/12/21 at 1405, RoutineIndications:Exudative age-related macular degeneration of both eyes with active choroidal neovascularization (HCC-CMS) Given 07/12/2021 14:05 EDT 2 mg Right E ye documented in this encounter Orders Medications Ordered That Trevor ht Not Have Been Administered Count Last Ordered Date First Ordered Date aflibercept (EYLEA) intravit real syringe 2 mg 1 07/12/2021 documented in this encounter Eye Exam Visual Acuity (Snellen - Linear) Right eye Left eye Dist sc 20/40 -1 20/30 -2 Dist ph sc 20/40 +2 20/20 -2 Tonometry (Applanation, 13:02) Right eye Left eye Pressure 16 16 Pupils Pupils Dark Light Shape React APD Right eye PERRL 3 2 Round Brisk None Left eye PERRL 3 2 Round Brisk None Extraocular Movement Right eye Left eye Full, Ortho Full, Ortho Neuro/Psych Oriented x3: Yes Mood/Affect: Normal Dilation Both eyes: Tropicamide 1%, P henylephrine 2.5% @ 13:02 Slit Lamp Exam Right eye Left eye [...] sions Attached without predisposing lesions Care Teams Health Service Worker Relationship Specialty Start Date End Date Skye Hernandez [address] [place] [address] PCP - General 08/11/18 01/02/22 Kimi Deleon MD [address] [place] [phone] 05/16/20 Hannah Batres NP [address] [place] [address] 05/16/20 documented as of this encounter
--- OUTSIDE RECORDS SUMMARY | 2024-04-19 08:11 | XMS_ITS | Encounter Summary ---
Author Organization [facility] Address [address] [place] [address] Care Team Providers Care Hull Molder Name Role Phone Skye Hernandez Primary Care Provider [phone] Kimi Deleon MD Unavailable [phone] Hannah Batres NP Unavailable [phone] Reason for Visit * Reason Comments Follow-up Encounter Details Date Type Department Care Team (Late st Contact Info) Description 09/11/2020 16:00 EDT Office Visit [facility] Hematology & Oncology - [address] [address] Ivonne Killian MD PhD Malignant neoplasm of upper-outer quadrant of right breast in female, estrogen receptor positive (HCC-CMS) (Primary Dx) Social History Tobacco Use Types Packs/Day Years Used Date Smoking Tobacco: Never Smokeless Tobacco: Never Alcohol Use Standard Drinks/Week Comments Yes 7 (1 standard drink = 0.6 oz pur e alcohol) AUDIT-C Answer Date Recorded Q1: How often [...] Sexual Orientation Straight 09/10/2021 20 :11 EDT COVID-19 Exposure Response Date Recorded In the last month, have you been in contact with someone who was confirmed or suspected to have Coronavirus / COVID-19? No / Unsure 08/29/2020 10:12 EDT documented as of this encounter Functional [...] documented in this encounter Progress Notes * Ivonne Killian MD - 09/11/2020 1600 EDT This patient participated in the Shared Medical Visit today. In addition we discussed sleep. She has been using THC to help with sleep. She has been using it for about 3 weeks. She is a little grooggy in the morning. She sleeps later in the morning. She wakes up occasionally to go to the bathroom. She is able to fall back asleep. She will be cutting back on the dose trying to find what works best. documented in this encounter Plan of Treatment Upcoming Encounters Date Type Department Care Team (Late st Contact Info) Description 07/21/2024 11:00 EDT Office Visit [facility] Ophthalmology - [address] [phone] Marcial Magaña MD [address] [place] [address], [address] [place] [phone] 07/25/2024 11:00 EDT Phlebotomy Only [facility] Hematology & Oncology - [address] [phone] Blood Doctor, [facility] Hem Onc 07/25/2024 11:45 EDT Office Visit [facility] Hematology & Oncology [address] [address] Abebe Ralph MD [address] [facility], [facility], Level [address] [place] [phone] 07/25/2024 12:30 EDT Appointment [facility] Hematology & Oncology [address] [phone] 01/03/2025 16:20 EDT Appointment [facility] Breast Imaging Mammography - [address] [phone] documented as of this encounter Visit Diagnoses Diagnosis Malignant neoplasm of upper-outer quadrant of right breast in female, estrogen receptor positive ([facility])- Primary Encounter for screening mammogram for malignant neoplasm of breast Other screening mammogram documented in this encounter Care Teams Hull Molder Relationship Specialty Start Date End Date Skye Hernandez [address] [place] [address] PCP - General 08/11/18 01/02/22 Kimi Deleon MD [address] [place] [address] 05/16/20 Hannah Batres NP [address] [place] [address] 05/16/20 documented as of this encounter
--- OUTSIDE RECORDS SUMMARY | 2024-04-19 08:11 | XMS_ITS | Encounter Summary ---
Author Organization [facility] Address [address] [place] [address] Care Team Providers Care Embedded Systems Engineer Name Role Phone Skye Hernandez Faiza Primary Care Provider Kimi Deleon MD Unavailable [phone] Hannah Batres NP Unavailable [phone] Reason for Visit * Reason Comments Follow-up * Prior Authorization (Urgent) - Closed Specialty Diagnoses / Procedures [facility]erred To Contact Ophthalmology Diagnoses Exudative age-related macular degeneration of both eyes with active choroidal neovascularization (HCC-CMS) Nuclear sclerosis of both eyes Procedures OH INJECT INTRAVITREAL PHARMCOLOGIC [place] AFLIBERCEPT INJECTION [place] BEVACIZUMAB INJECTION Marcial Magaña MD Phone: tel: fax: Marcial Magaña MD Phone: tel: fax: Referral ID Status Reason Start Date Expiration Date Visits Re quested Visits Authorized [id number] Closed 03/07/2021 03/22/2021 1 1 Encounter Details Date Type Department Care Team (Late st Contact Info) Description 03/08/2021 10:30 EST Office Visit [facility] Ophthalmology - [address] [address] Marcial Magaña MD 111 [facility], [address] [place] [phone] Social History Tobacco Use Types Packs/Day Years [...] Progress Notes * Marcial Magaña MD - 03/08/2021 1030 EST Chief Complaint Patient presents with ??? Follow-up Comments Pt here for 6 week f/u for Wet AMD both eyes S/P Eylea right (01-25-21) left (12-21-20) VA stable both eye-slight decrease in vision left eye. No floaters or flashes. No pain HPI Location: Both eyes Pain: 0 - No pain Quality: Blurry Severity: Moderate Duration: Years Timing: Constant Lasts: Continuous Context: VA stable both eye-slight decrease in vision left eye. No floaters or flashes. No pain Modifying factors: S/P Eylea right (01-25-21) left (12-21-20) Associated Signs & Symptoms: Wet AMD both Visual Fluctuations: None Attestation: Base Eye Exam Visual Acuity (Snellen - Linear) Right Left Dist sc 20/30 +2 20/30 +2 Dist ph sc 20/25 -1 20/20 -1 Tonometry (Applanation, 11:13) Right Left Pressure 14 14 Neuro/Psych Oriented x3: Yes Mood/Affect: Normal Dilation Both eyes: Phenylephrine 2.5%, Tropicamide 1% @ 11:13 Slit Lamp and Fundus Exam Slit Lamp [...] has been stable. Findings include pigment epithelial detachment (No fluid). Left Eye Quality was good. Progression has been stable. Findings include (Drusen. No fluid). Intravitreal Injection, Pharmacologic Agent - OU - Both Eyes Time Out 03/08/2021. 11:42. Confirmed correct patient, procedure, site, and patient consented. Anesthesia Right Eye Topical anesthesia was used. Anesthetic medications included Proparacaine 0.5%, Tetracaine 0.5%. Left Eye Topical anesthesia was used. Anesthetic medications included Proparacaine 0.5%, Tetracaine 0.5%. Procedure Right Eye Preparation included eyelid speculum, 5% betadine to ocular surface. A 30 gauge needle was used. Injection: 2 mg aflibercept (EYLEA) intravitreal syringe [facility]: 37842-459-65, Lot: [id number], Expiration date: 04/23/2021 Route: intravitreal, Site: Right Eye Left Eye Preparation included 5% betadine to ocular surface. A 30 gauge needle was used. Injection: 2 mg aflibercept (EYLEA) intravitreal syringe [facility]: 24371-468-72, Lot: [id number], Expiration date: 04/23/2021 Route: intravitreal, Site: Left Eye Post-op Right [...] degeneration of both eyes with active choroidal neovascularization([facility]) ([facility]) OCT, RETINA - OU - BOTH EYES INTRAVITREAL INJECTION, PHARMACOLOGIC AGENT - OU - BOTH EYES aflibercept (EYLEA) intravitreal syringe 2 mg aflibercept (EYLEA) intravitreal syringe 2 mg Assessment Wet age-related macular degeneration??both eyes?? Improved vision and resolution of SRF 6 weeks s/p Eylea??right eye Stable 20/25 vision with??resolution of??SRF sliver superior to fovea 12 weeks S/P Eylea left eye. Offer Eylea??both eye??today and??continue every 6 weeks for right eye and 12 weeks for the left. Patient agrees ?? Nuclear??cataract both eyes Not visually significant Observe Return 6 weeks/PRN Eylea right eye I have reviewed [...] 07/21/2024 11:00 EDT Office Visit [facility] Ophthalmology - [address] [address] Marcial Magaña MD 111 [facility], [address] [place] [address] 07/25/2024 11:00 EDT Phlebotomy Only [facility] Hematology & Oncology - [address] [phone] Blood Doctor, [facility] Hem Onc 07/25/2024 11:45 EDT Office Visit [facility] Hematology & Oncology - [address] [phone] Abebe Ralph MD 111 [facility], [facility] [address] [place] [phone] 07/25/2024 12:30 EDT Appointment [facility] Hematology & Oncology - [address] [phone] 01/03/2025 16:20 EDT Appointment [facility] Breast Imaging Mammography - [address] [phone] documented as of this encounter Procedures Procedure Name Priority Date/Time Associated Diagnosis Comments INTRAVITREAL INJECTION, PHARMACOLOGIC AGENT - OU - BOTH EYES Routine 03/08/2021 11:55 EST Exudative age-related macular degeneration of both eyes with active choroidal neovascularization (HCC-CMS) ([facility]) OCT, RETINA - OU - BOTH EYES Routine 03/08/2021 11:33 EST Exudative age-related macular degeneration of both eyes with active choroidal neovascularization (HCC-CMS) ([facility]) documented in this encounter Results * INTRAVITREAL INJECTION, PHARMACOLOGIC AGENT - OU - BOTH EYES (03/08/2021 11:55 EST) Narrative [facility] POINT OF CARE - 03/08/2021 12:43 EST Time Out 03/08/2021. 11:42. Confirmed correct patient, procedure, site, and patient consented. Anesthesia Right Eye Topical anesthesia was used. Anesthetic medications included Proparacaine 0.5%, Tetracaine 0.5%. Left Eye Topical anesthesia was used. Anesthetic medications included Proparacaine 0.5%, Tetracaine 0.5%. Procedure Right Eye Preparation included eyelid speculum, 5% betadine to ocular surface. A 30 gauge needle was used. Injection: 2 mg aflibercept (EYLEA) intravitreal syringe ??[facility]: 11469-297-32, Lot: [id number], Expiration date: 04/23/2021 ??Route: intravitreal, Site: Right Eye Left Eye Preparation included 5% betadine to ocular surface. A 30 gauge needle was used. Injection: 2 mg aflibercept (EYLEA) intravitreal syringe ??ND: 21295-343-74, Lot: [id number], Expiration date: 04/23/2021 ??Route: intravitreal, Site: Left Eye Post-op Right [...] MD OPH CLINIC PROCEDURES Final Re sult Performing Organization Address [facility] Co de Phone Number [facility] POINT OF CARE * OCT, RETINA - OU - BOTH EYES (03/08/2021 11:33 EST) Narrative [facility] POINT OF CARE - 03/08/2021 12:43 EST Right Eye Quality was good. Scan locations included subfoveal. Progression has been stable. Findings include pigment epithelial detachment (No fluid). Left Eye Quality was good. Progression has been stable. Findings include (Drusen. No fluid). 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 (HCC-CMS) Given 03/08/2021 11:42 EST 2 mg Right E ye aflibercept (EYLEA) intravitreal syringe 2 mg 2 mg, intravitreal, Starting on Thu03/08/21 at 1142, Until Thu03/08/21 at 1445, RoutineIndications:Exudative age-related macular degeneration of both eyes with active choroidal neovascularization (HCC-CMS) Given 03/08/2021 11:42 EST 2 mg Left Ey e documented in this encounter Orders Medications Ordered That Trevor ht Not Have Been Administered Count Last Ordered Date First Ordered Date aflibercept (EYLEA) intravit real syringe 2 mg 1 03/08/2021 documented in this encounter Eye Exam Visual Acuity (Snellen - Linear) Right eye Left eye Dist sc 20/30 +2 20/30 +2 Dist ph sc 20/25 -1 20/20 -1 Tonometry (Applanation, 11:13) Right eye Left eye Pressure 14 14 Neuro/Psych Oriented x3: Yes Mood/Affect: Normal Dilation Both eyes: Phenylephrine 2.5 %, Tropicamide 1% @ 11:13 Slit Lamp Exam Right eye Left eye [...] sions Attached without predisposing lesions Care Teams Embedded Systems Engineer Relationship Specialty Start Date End Date Skye Hernandez [address] [place] [address] PCP - General 08/11/18 01/02/22 Kimi Deleon MD [address] [place] [address] 05/16/20 Hannah Batres NP [address] [place] [address] 05/16/20 documented as of this encounter
--- OUTSIDE RECORDS SUMMARY | 2024-04-19 08:11 | XMS_ITS | Encounter Summary ---
Author Organization [facility] Address [address] [place] [address] Care Team Providers Care Director Of Sales Marketing Name Role Phone Skye Hernandez Faiza Primary Care Provider Kimi Deleon MD Unavailable Hannah Batres NP Unavailable [phone] Reason for Visit * Reason Comments Other Encounter Details Date Type Department Care Team (Late st Contact Info) Description 02/24/2021 [facility] Hematology & Oncology - [facility] [address] [place], [place] [phone] Xena Nieves, PA-C 111 [facility], Level [address] [place] [address] Other Social History Tobacco Use [...] BY MOUTH AT BEDTIME 30 Tablet 2 02/27/2021 2 documented in this encounter Plan of Treatment Upcoming Encounters Date Type Department Care Team (Late st Contact Info) Description 07/21/2024 11:00 EDT Office Visit [facility] Ophthalmology [address] [phone] Marcial Magaña MD [address] [place] [address] 5 [place] [phone] 07/25/2024 11:00 EDT Phlebotomy Only [facility] Hematology & Oncology [address] [phone] Blood Doctor, [facility] Hem Onc 07/25/2024 11:45 EDT Office Visit [facility] Hematology & Oncology [address] [address]78[address] Abebe Ralph MD [address] [place] [address], [address] [place] [address] 07/25/2024 12:30 EDT Appointment [facility] Hematology & Oncology - [address] [address] 01/03/2025 16:20 EDT Appointment [facility] Breast Imaging Mammography - [address] [address] documented as of this encounter Visit Diagnoses Diagnosis Malignant neoplasm of upper-outer quadrant of right breast in female, estrogen receptor positive ([facility])- Primary Encounter for screening mammogram for malignant neoplasm of breast Other screening mammogram documented in this encounter Discontinued Medications Medication Sig Discontinue Reason Start Date End Da te citalopram (CELEXA) 10 mg tablet TAKE 1 TABLET BY MOUTH AT BEDTIME 11/27/2020 02/27/2021 documented as of this encounter Care Teams Director Of Sales Marketing Relationship Specialty Start Date End Date Skye Hernandez [address] [place] [address] PCP - General 08/11/18 01/02/22 Kimi Deleon MD [address] [place] [address] 05/16/20 Hannah Batres NP [address] [place] [address] 05/16/20 documented as of this encounter
--- OUTSIDE RECORDS SUMMARY | 2024-04-19 08:11 | XMS_ITS | Encounter Summary ---
Author Organization [facility] Address [address] [place] [address] Care Team Providers Care Hydroelectric Plant Electrician Name Role Phone Skye Hernandez Primary Care Provider [phone] Kimi Deleon MD Unavailable [phone] Hannah Batres NP Unavailable [phone] Reason for Visit * Reason Comments Eye Problem Encounter Details Date Type Department Care Team (Late st Contact Info) Description 10/26/2020 10:45 EDT Office Visit [facility] Ophthalmology - [address] [address] Marcial Magaña MD 111 [facility], [address] [place] [address] Social History Tobacco Use Types [...] Progress Notes * Marcial Magaña MD - 10/26/2020 1045 EDT Chief Complaint Patient presents with ??? Eye Problem Comments Wet AMD both eyes, s/p Eylea both 09/14/20 HPI Location: Both eyes Pain: 0 - No pain Quality: Blurry Severity: Moderate Duration: Years Timing: Lasts: Continuous Context: Vision the same. No pain, no pressure. No new flashes or floaters. Modifying factors: S/P Eylea-Both eyes 09/14/20 Associated Signs & Symptoms: Wet AMD-Both eyes with CNV. Visual Fluctuations: None Attestation: Base Eye Exam Visual Acuity (Snellen - Linear) Right Left Dist sc 20/30 -2 20/40 -1 Dist ph sc NI 20/25 -2 Tonometry (Applanation, 10:48) Right Left Pressure 11 10 Pupils Pupils Light Shape APD Right PERRL 4 Round None Left PERRL 4 Round None Extraocular Movement Right Left Full, Ortho Full, Ortho Neuro/Psych Oriented x3: Yes Mood/Affect: Normal Dilation Both eyes: Tropicamide 1%, Phenylephrine 2.5% @ 10:48 Slit Lamp and Fundus Exam Slit Lamp [...] Quality was good. Scan locations included subfoveal. Left Eye Quality was good. Scan locations included subfoveal. Notes Right:Stable PED, rare SR cysts Left: Stable PED,Drusen,No fluid Intravitreal Injection, Pharmacologic Agent - OU - Both Eyes Time Out 10/26/2020. 11:20. Confirmed correct patient, procedure, site, and patient consented. Anesthesia Right Eye Topical anesthesia was used. Anesthetic medications included Tetracaine 0.5%, Proparacaine 0.5%. Left Eye Topical anesthesia was used. Anesthetic medications included Proparacaine 0.5%, Tetracaine 0.5%. Procedure Right Eye Preparation included 5% betadine to ocular surface, eyelid speculum. A 30 gauge needle was used. Injection: 2 mg aflibercept (EYLEA) intravitreal syringe [facility]: 83872-919-06, Lot: [id number], Expiration date: 12/26/2020 Route: intravitreal, Site: Right Eye Left Eye Preparation included 5% betadine to ocular surface, eyelid speculum. A 30 gauge needle was used. Injection: 2 mg aflibercept (EYLEA) intravitreal syringe [facility]: 84911-743-37, Lot: [id number], Expiration date: 12/26/2020 Route: intravitreal, Site: Left Eye Post-op Right [...] degeneration of both eyes with active choroidal neovascularization([facility]) OCT, RETINA - OU - BOTH EYES INTRAVITREAL INJECTION, PHARMACOLOGIC AGENT - OU - BOTH EYES aflibercept (EYLEA) intravitreal syringe 2 mg aflibercept (EYLEA) intravitreal syringe 2 mg Assessment Wet age-related macular degeneration??both eyes?? Stable??20/30 vision,??with??resolution of??SRF??6 weeks s/p Eylea??right eye Stable 20/25 vision with resolution of SRF sliver superior to fovea 6 weeks s/p Eylea left eye Offer Eylea??both eyes??today and??attempt extension to 8 weeks Patient agrees ?? Nuclear??cataract both eyes Not visually significant Observe Return??8 weeks or PRN I have reviewed the past medical, [...] [facility] Ophthalmology - [address] [phone] Marcial Magaña MD [address] [place] [address] 5 [place] [phone] 07/25/2024 11:00 EDT Phlebotomy Only [facility] Hematology & Oncology [address] [address] Blood Doctor, [facility] Hem Onc 07/25/2024 11:45 EDT Office Visit [facility] Hematology & Oncology [address] [address]24[address] Abebe Ralph MD [address] [place] [address], [address] [place] [phone] 07/25/2024 12:30 EDT Appointment [facility] Hematology & Oncology - [address] [phone] 01/03/2025 16:20 EDT Appointment [facility] Breast Imaging Mammography - [address] [phone] documented as of this encounter Procedures Procedure Name Priority Date/Time Associated Diagnosis Comments INTRAVITREAL INJECTION, PHARMACOLOGIC AGENT - OU - BOTH EYES Routine 10/26/2020 11:23 EDT Exudative age-related macular degeneration of both eyes with active choroidal neovascularization (HCC-CMS) OCT, RETINA - OU - BOTH EYES Routine 10/26/2020 11:03 EDT Exudative age-related macular degeneration of both eyes with active choroidal neovascularization (HCC-CMS) documented in this encounter Results * INTRAVITREAL INJECTION, PHARMACOLOGIC AGENT - OU - BOTH EYES (10/26/2020 11:23 EDT) Narrative [facility] POINT OF CARE - 10/26/2020 12:48 EDT Time Out 10/26/2020. 11:20. Confirmed correct patient, procedure, site, and patient consented. Anesthesia Right Eye Topical anesthesia was used. Anesthetic medications included Tetracaine 0.5%, Proparacaine 0.5%. Left Eye Topical anesthesia was used. Anesthetic medications included Proparacaine 0.5%, Tetracaine 0.5%. Procedure Right Eye Preparation included 5% betadine to ocular surface, eyelid speculum. A 30 gauge needle was used. Injection: 2 mg aflibercept (EYLEA) intravitreal syringe ??ND: [id number], Lot: [id number], Expiration date: 12/26/2020 ??Route: intravitreal, Site: Right Eye Left Eye Preparation included 5% betadine to ocular surface, eyelid speculum. A 30 gauge needle was used. Injection: 2 mg aflibercept (EYLEA) intravitreal syringe ??[facility]: 59819-825-79, Lot: [id number], Expiration date: 12/26/2020 ??Route: intravitreal, Site: Left Eye Post-op Right [...] PROCEDURES Final Re sult Performing Organization Address [facility] Co de Phone Number [facility] POINT OF CARE * OCT, RETINA - OU - BOTH EYES (10/26/2020 11:03 EDT) Narrative [facility] POINT OF CARE - 10/26/2020 12:48 EDT Right Eye Quality was good. Scan locations included subfoveal. Left Eye Quality was good. Scan locations included subfoveal. Notes Right:Stable PED, rare SR cysts Left: Stable PED,Drusen,No fluid Marcial Magaña MD OPHTH TOMOGRAPHY Final Result Performing Organization Address [facility] de Phone Number [facility] POINT OF [facility] documented in this encounter Visit Diagnoses Diagnosis Exudative age-related macular degeneration of both eyes with active choroidal neovascularization ([facility])- Primary Encounter for screening mammogram for malignant neoplasm of breast Other screening mammogram documented in this encounter Administered Medications Inactive Administered Medications - up to 3 most recent administrations Medication Order MAR Action Action Date Dose Rate Site aflibercept (EYLEA) intravitreal syringe 2 mg 2 mg, intravitreal, Starting on Thu10/26/20 at 1119, Until Thu10/26/20 at 1448, RoutineIndications:Exudative age-related macular degeneration of both eyes with active choroidal neovascularization (HCC-CMS) Given 10/26/2020 11:19 EDT 2 mg Right E ye aflibercept (EYLEA) intravitreal syringe 2 mg 2 mg, intravitreal, Starting on Thu10/26/20 at 1120, Until Thu10/26/20 at 1448, RoutineIndications:Exudative age-related macular degeneration of both eyes with active choroidal neovascularization ([facility]) Given 10/26/2020 11:20 EDT 2 mg Left Ey e documented in this encounter Orders Medications Ordered That Trevor ht Not Have Been Administered Count Last Ordered Date First Ordered Date aflibercept (EYLEA) intravit real syringe 2 mg 1 10/26/2020 documented in this encounter Eye Exam Visual Acuity (Snellen - Linear) Right eye Left eye Dist sc 20/30 -2 20/40 -1 Dist ph sc NI 20/25 -2 Tonometry (Applanation, 10:48) Right eye Left eye Pressure 11 10 Pupils Pupils Light Shape APD Right eye PERRL 4 Round None Left eye PERRL 4 Round None Extraocular Movement Right eye Left eye Full, Ortho Full, Ortho Neuro/Psych Oriented x3: Yes Mood/Affect: Normal Dilation Both eyes: Tropicamide 1%, P henylephrine 2.5% @ 10:48 Slit Lamp Exam Right eye Left eye [...] sions Attached without predisposing lesions Care Teams Hydroelectric Plant Electrician Relationship Specialty Start Date End Date Skye Hernandez [address] [place] [address] PCP - General 08/11/18 01/02/22 Kimi Deleon MD [address] [place] [phone] 05/16/20 Hannah Batres NP [address] [place], [place] [address] 05/16/20 documented as of this encounter
--- OUTSIDE RECORDS SUMMARY | 2024-04-19 08:11 | XMS_ITS | Encounter Summary ---
Author Organization [facility] Address [address] [place] [address] Care Team Providers Care Car Greaser Name Role Phone Skye Hernandez Primary Care Provider Kimi Deleon MD Unavailable Hannah Batres NP Unavailable [phone] Reason for Visit * Reason Comments Eye Problem Encounter Details Date Type Department Care Team (Late st Contact Info) Description 12/21/2020 10:30 EDT Office Visit [facility] Ophthalmology - [address] [address] Marcial Magaña MD 111 [facility], Level 5 [place] [address] Social History Tobacco Use Types [...] Progress Notes * Marcial Magaña MD - 12/21/2020 1030 EDT Chief Complaint Patient presents with ??? Eye Problem Comments Pt. Here for eye exam with H/O Wet AMD both eyes, NS Cataract both eyes. S/p Eylea both eyes on 10/26/20. Pt. States [place] possible decrease pt. Does not know if one eye is greater than other in decrease,no eye pain, no new or different f/f. HPI Location: Both eyes Pain: Quality: Blurry Severity: Moderate Duration: Years Timing: Lasts: Continuous Context: Pt. Here for eye exam with H/O Wet AMD both eyes, NS Cataract both eyes. S/p Eylea both eyes on 10/26/20. Pt. States VA possible decrease pt. Does not know if one eye is greater than other in decrease, no eye pain, no new or different f/f. Modifying factors: DFE, OCT Associated Signs & Symptoms: blurry vision Visual Fluctuations: None Attestation: Base Eye Exam Visual Acuity (Snellen - Linear) Right Left Dist sc 20/30 -2 20/25 -2 Dist ph sc NI Tonometry (Applanation, 10:48) Right Left Pressure 17 14 Pupils Dark Light Shape React APD Right 4 3 Round Brisk None Left 4 3 Round Brisk None Neuro/Psych Oriented x3: [...] good. Scan locations included subfoveal. Progression has worsened. Findings include subretinal fluid, pigment epithelial detachment. Left Eye Quality was good. Scan locations included subfoveal. Progression has been stable. Intravitreal Injection, Pharmacologic Agent - OU - Both Eyes Time Out 12/21/2020. 11:42. Confirmed correct patient, procedure, site, and patient consented. Anesthesia Right Eye Topical anesthesia was used. Anesthetic medications included Proparacaine 0.5%, Tetracaine 0.5%. Left Eye Topical anesthesia was used. Anesthetic medications included Proparacaine 0.5%, Tetracaine 0.5%. Procedure Right Eye Preparation included 5% betadine to ocular surface, eyelid speculum. A 30 gauge needle was used. Injection: 2 mg aflibercept (EYLEA) intravitreal syringe NDC: 92014-347-99, Lot: [id number], Expiration date: 02/20/2021 Route: intravitreal, Site: Right Eye Left Eye Preparation included 5% betadine to ocular surface, eyelid speculum. A 30 gauge needle was used. Injection: 2 mg aflibercept (EYLEA) intravitreal syringe NDC: 60842-542-93, Lot: [id number], Expiration date: 02/20/2021 Route: intravitreal, Site: Left Eye Post-op Right Eye Post injection exam found visual acuity of at least counting fingers. The patient tolerated the procedure well. There were no complications. Left Eye Post injection exam found visual acuity of at least counting fingers. The patient tolerated the procedure well. There were no complications. DIAGNOSES: 1. Exudative age-related macular degeneration of both eyes with active choroidal neovascularization(HCC-CMS) ([facility]) OCT, RETINA - OU - BOTH EYES INTRAVITREAL INJECTION, PHARMACOLOGIC AGENT - OU - BOTH EYES aflibercept (EYLEA) intravitreal syringe 2 mg aflibercept (EYLEA) intravitreal syringe 2 mg 2. 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 Stable??20/30 vision,??with??recurrence of??SRF??8 vs 6 weeks s/p Eylea??right eye Stable 20/25 vision with??resolution of??SRF sliver superior to fovea 8 weeks s/p Eylea left eye Offer Eylea??both eyes??today and??return to 6 week interval Consider extension to 12 weeks left eye down the road Patient agrees ?? Nuclear??cataract both eyes Not visually significant Observe Return in 6 weeks for Eylea both eyes I have reviewed the [...] Office Visit [facility] Ophthalmology - [address] [phone] Marcial Magaña MD [address] [place] [address], [address] [place] [phone] 07/25/2024 11:00 EDT Phlebotomy Only [facility] Hematology & Oncology [address] [address] Blood Doctor, [facility] Hem Onc 07/25/2024 11:45 EDT Office Visit [facility] Hematology & Oncology - [facility] [address] [place] [address] Abebe Ralph MD 111 [facility], Level [address] [place] [phone] 07/25/2024 12:30 EDT Appointment [facility] Hematology & Oncology - [facility] [address] [place], [place] [address] 01/03/2025 16:20 EDT Appointment [facility] Breast Imaging Mammography - [address] [phone] documented as of this encounter Procedures Procedure Name Priority Date/Time Associated Diagnosis Comments OCT, RETINA - OU - BOTH EYES Routine 12/21/2020 12:55 EDT Exudative age-related macular degeneration of both eyes with active choroidal neovascularization (HCC-CMS) ([facility]) INTRAVITREAL INJECTION, PHARMACOLOGIC AGENT - OU - BOTH EYES Routine 12/21/2020 12:55 EDT Exudative age-related macular degeneration of both eyes with active choroidal neovascularization (HCC-CMS) ([facility]) documented in this encounter Results * OCT, RETINA - OU - BOTH EYES (12/21/2020 12:55 EDT) Narrative [facility] POINT OF CARE - 12/21/2020 12:55 EDT Right Eye Quality was good. Scan locations included subfoveal. Progression has worsened. Findings include subretinal fluid, pigment epithelial detachment. Left Eye Quality was good. Scan locations included subfoveal. Progression has been stable. Marcial Magaña MD OPHTH TOMOGRAPHY Final Result [facility] POINT OF CARE * INTRAVITREAL INJECTION, PHARMACOLOGIC AGENT - OU - BOTH EYES (12/21/2020 12:55 EDT) Narrative [facility] POINT OF CARE - 12/21/2020 12:55 EDT Time Out 12/21/2020. 11:42. Confirmed correct patient, procedure, site, and patient consented. Anesthesia Right Eye Topical anesthesia was used. Anesthetic medications included Proparacaine 0.5%, Tetracaine 0.5%. Left Eye Topical anesthesia was used. Anesthetic medications included Proparacaine 0.5%, Tetracaine 0.5%. Procedure Right Eye Preparation included 5% betadine to ocular surface, eyelid speculum. A 30 gauge needle was used. Injection: 2 mg aflibercept (EYLEA) intravitreal syringe ??NDC: 23151-629-33, Lot: [id number], Expiration date: 02/20/2021 ??Route: intravitreal, Site: Right Eye Left Eye Preparation included 5% betadine to ocular surface, eyelid speculum. A 30 gauge needle was used. Injection: 2 mg aflibercept (EYLEA) intravitreal syringe ??NDC: 38236-384-77, Lot: [id number], Expiration date: 02/20/2021 ??Route: intravitreal, Site: Left Eye Post-op Right Eye Post injection exam found visual acuity of at least counting fingers. The patient tolerated the procedure well. There were no complications. Left Eye Post injection exam found visual acuity of at least counting fingers. The patient tolerated the procedure well. There were no complications. 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 calcium carbonate/vitamin D3 (CALCIUM 500 + D ORAL) Take 1 caplet by mouth 2 times daily. vitamin B complex (B COMPLEX 1 ORAL) Take 1 caplet by mouth daily. added in this encounter Eye Exam Visual Acuity (Snellen - Linear) Right eye Left eye Dist sc 20/30 -2 20/25 -2 Dist ph sc NI Tonometry (Applanation, 10:48) Right eye Left eye Pressure 17 14 Pupils Dark Light Shape React APD Right eye 4 3 Round Brisk None Left eye 4 3 Round Brisk None Neuro/Psych Oriented x3: [...] sions Attached without predisposing lesions Care Teams Car Greaser Relationship Specialty Start Date End Date Skye Hernandez [address] [place] [address] PCP - General 08/11/18 01/02/22 Kimi Deleon MD [address] [place] [phone] 05/16/20 Hannah Batres NP [address] [place] [address] 05/16/20 documented as of this encounter
--- OUTSIDE RECORDS SUMMARY | 2024-04-19 08:11 | XMS_ITS | Encounter Summary ---
Author Organization [facility] Address [address] [place] [address] Care Team Providers Care Retrimmer Name Role Phone Skye Hernandez Primary Care Provider Kimi Deleon MD Unavailable Hannah Batres NP Unavailable [phone] Reason for Visit * Reason Onset Date Comments Eye Problem 04/22/2021 Encounter Details Date Type Department Care Team (Late st Contact Info) Description 04/22/2021 Telephone [facility] Ophthalmology - [address] [address] Marcial Magaña MD 111 [facility], Level 5 [place] [address] Eye Problem Social History Tobacco Use Types Packs/Day Years [...] encounter Miscellaneous Notes * Telephone Encounter - Brianda Su RN - 04/23/[address] Magaña, this appears to be a sub-conj heme. This does not damage the eye or affect the vision. Will likely improve within 1-2 weeks. Spoke with patient and relayed information. Patient verbalized understanding. Brianda Su RN 04/23/2021 9:23 * Telephone Encounter - Brianda Su RN - 04/22/2021 1455 EST On RR desk for review. Brianda Su RN 04/22/2021 14:55 * Telephone Encounter - Brianda Su RN - 04/22/2021 1439 EST Looks like a broken blood vessel on the white outer area of right eye. Started Thursday No injury or heavy lifting over weekend. No pain right eye. No vision changes, no flashes, no floaters Patient is going to try to send a photo via [employer]. Patient is aware That Dr. Magaña is in the OR this afternoon. Brianda Su RN 04/22/2021 14:45 * Telephone Encounter - Winston Santosilla - 04/22/2021 8616 EST Which Eye? Right. Nature of problem? Red spot on the white part of her, eye, it's very large. She had an INJ w/Dr. Magaña on Thursday. Vision is good. No flashers, no floaters in her vision. Onset and Duration? Thursday. Is this an injury or trauma? No. Are you having pain? Describe the type of pain you are having (sharp, dull, etc) No pain. If yes, please rate pain on scale 0-10? 0/10 Have you had any recent surgery? No surgery, injection on Thursday. Do you have establish eye care? Yes. With who? Dr. Magaña. documented in this encounter Plan of Treatment Upcoming Encounters Date Type Department Care Team (Late st Contact Info) Description 07/21/2024 11:00 EDT Office Visit [facility] Ophthalmology - [address] [phone] Marcial Magaña MD [address] [place] [address] 5 [place] [phone] 07/25/2024 11:00 EDT Phlebotomy Only [facility] Hematology & Oncology - [address] [address] Blood Doctor, [facility] Hem Onc 07/25/2024 11:45 EDT Office Visit [facility] Hematology & Oncology [address] [address] Abebe Ralph MD [address] [place] [address], [address] [place] [phone] 07/25/2024 12:30 EDT Appointment [facility] Hematology & Oncology - [address] [address] 01/03/2025 16:20 EDT Appointment [facility] Breast Imaging Mammography - [address] [address] documented as of this encounter Visit Diagnoses Not on filedocumented in this encounter Care Teams Retrimmer Relationship Specialty Start Date End Date Skye Hernandez [address] [place] [address] PCP - General 08/11/18 01/02/22 Kimi Deleon MD [address] [place] [address] 05/16/20 Hannah Batres NP [address] [place] [address] 05/16/20 documented as of this encounter
--- OUTSIDE RECORDS SUMMARY | 2024-04-19 08:11 | XMS_ITS | Encounter Summary ---
Author Organization [facility] Address [address] [place] [address] Care Team Providers Care Finishing Range Supervisor Name Role Phone Skye Hernandez Faiza Primary Care Provider [phone] Kimi Deleon MD Unavailable Hannah Batres NP Unavailable [phone] Reason for Visit * Reason Comments Other Encounter Details Date Type Department Care Team (Late st Contact Info) Description 11/25/2020 [facility] Hematology & Oncology - [facility] [address] [place], [place] [phone] Xena Nieves, PA-C 111 [facility], [address] [place] [address] Other Social History Tobacco Use [...] Date End Date citalopram (CELEXA) 10 mg tablet TAKE 1 TABLET BY MOUTH AT BEDTIME 30 Tablet 2 11/27/2020 documented in this encounter Miscellaneous Notes * Telephone Encounter - Anna Landrum RN - 11/27/2020 1149 EDT Celexa refilled per Taylor Nieves's note. documented in this encounter Plan of Treatment Upcoming Encounters Date Type Department Care Team (Late st Contact Info) Description 07/21/2024 11:[address] [facility] Ophthalmology - [address] [phone] Marcial Magaña MD [address] [place] [address], [address] [place] [phone] 07/25/2024 11:00 EDT Phlebotomy Only [facility] Hematology & Oncology [address] [address] Blood Doctor, [facility] Hem Onc 07/25/2024 11:45 EDT Office Visit [facility] Hematology & Oncology - [address] [address] Abebe Ralph MD 111 [facility], [address] [place] [phone] 07/25/2024 12:30 EDT Appointment [facility] Hematology & Oncology - [address] [address] 01/03/2025 16:20 EDT Appointment [facility] Breast Imaging Mammography - [address] [phone] documented as of this encounter Visit Diagnoses Not on filedocumented in this encounter Discontinued Medications Medication Sig Discontinue Reason Start Date End Da te citalopram (CELEXA) 10 mg tablet Take 1 Tablet by mouth at bedtime. 09/03/2020 11/27/2020 documented as of this encounter Care Teams Finishing Range Supervisor Relationship Specialty Start Date End Date Skye Hernandez [address] [place] [address] PCP - General 08/11/18 01/02/22 Kimi Deleon MD [address] [place] [phone] 05/16/20 Hannah Batres NP [address] [place] [address] 05/16/20 documented as of this encounter
--- OUTSIDE RECORDS SUMMARY | 2024-04-19 08:11 | XMS_ITS | Encounter Summary ---
Author Organization [facility] Address [address] [place] [address] Care Team Providers Care Sports Management Professor Name Role Phone Skye Hernandez Primary Care Provider [phone] Kimi Deleon MD Unavailable Hannah Batres NP Unavailable [phone] Encounter Details Date Type Department Care Team (Late st Contact Info) Description 03/12/2021 9:15 EST Phlebotomy Only [facility] ED Center 2 Phlebotomy [address] [place] [address] Cell Room Supervisor, Acc Phlebotomy Malignant neoplasm of upper-outer quadrant [...] Info) Description 07/21/2024 11:00 EDT Office Visit [facility] Ophthalmology - [address] [phone] Marcial Magaña MD [address] [place] [address], [facility] [address] [place] [phone] 07/25/2024 11:00 EDT Phlebotomy Only [facility] Hematology & Oncology [address] [address] Blood Doctor, [facility] Hem Onc 07/25/2024 11:45 EDT Office Visit [facility] Hematology & Oncology [address] [phone] Abebe Ralph MD [address] [place] [address], Level [address] [place] [phone] 07/25/2024 12:30 EDT Appointment [facility] Hematology & Oncology [address] [phone] 01/03/2025 16:20 EDT Appointment [facility] Breast Imaging Mammography - [address] [address] documented as of this encounter Procedures Procedure Name Priority Date/Time Associated Diagnosis Comments COMPREHENSIVE METABOLIC PANEL (ONCOLOGY USE ONLY-INC MG) STAT 03/12/2021 9:30 EST Malignant neoplasm of upper-outer quadrant of right breast in female, estrogen receptor positive (HCC-CMS) (HCC) (HCC-CMS) COMPLETE BLOOD COUNT AND DIFFERENTIAL STAT 03/12/2021 9:30 EST Malignant neoplasm of upper-outer quadrant of right breast in female, estrogen receptor positive (HCC-CMS) (HCC) (HCC-CMS) PHOSPHORUS STAT 03/12/2021 9:30 EST Malignant neoplasm of upper-outer quadrant of right breast in female, estrogen receptor positive (HCC-CMS) (HCC) (HCC-CMS) documented in this encounter Results * PHOSPHORUS (03/12/2021 9:30 EST) Phosphorus 3.9 2.5 - 4.5 mg/dL 03/12/2021 9:54 EST [facility] Blood VENOUS BLOOD / Unknown Venipuncture / Unknown 03/12/2021 9:30 EST 03/12/2021 9:34 EST us Abebe Ralph MD CHEMISTRY & BLOOD GAS ORDERAB LES Final Result [facility] [address] [place] [id number] * (ABNORMAL) COMPREHENSIVE METABOLIC PANEL (ONCOLOGY USE ONLY-INC MG) (03/12/2021 9:30 EST) Sodium 138 136 - 145 mmol/L 03/12/2021 9:54 EST [facility] Potassium 4.5 3.5 - 5.0 mmol/L 03/12/2021 9:54 EST [facility] Chloride 105 96 - 110 mmol/L 03/12/2021 9:54 EST [facility] CO2 Total 28 22 - 32 mmol/L 03/12/2021 9:54 EST [facility] Glucose 100 70 - 100 mg/dL 03/12/2021 9:54 [facility] BUN 20 10 - 26 mg/dL 03/12/2021 9:54 [facility] Creatinine 0.71 0.52 - 1.04 mg/dL 03/12/2021 9:54 [facility] eGFR 85 >60 mL/min/1.7 3m2 03/12/2021 9:54 [facility] Total Protein 7.0 6.3 - 8.2 g/dL 03/12/2021 9:54 [facility] Albumin 4.3 3.4 - 4.9 g/dL 03/12/2021 9:54 [facility] Alkaline Phosphatase 43 38 - 126 U/L 03/12/2021 9:54 [facility] AST 22 15 - 46 U/L 03/12/2021 9:54 [facility] ALT 21 <35 U/L 03/12/2021 9:54 [facility] Bilirubin, Total <0.5 <1.4 mg/dL 03/12/20 9:54 [facility] Calcium 9.4 8.5 - 10.5 mg/dL 03/12/2021 9:54 [facility] Magnesium 2.2 1.7 - 2.8 mg/dL 03/12/2021 9:54 [facility] Albumin/Globulin Ratio 1.6 1.0 - 2.5 03/12/2021 9:54 [facility] Anion Gap 5(L) 8 - 16 03/12/2021 9:54 [facility] Blood VENOUS BLOOD / Unknown Venipuncture / Unknown 03/12/2021 9:30 EST 03/12/2021 9:34 EST us Abebe Ralph MD CHEMISTRY & BLOOD GAS ORDERAB LES Final Result [facility] [address] [place] [address] * COMPLETE BLOOD COUNT AND DIFFERENTIAL (03/12/2021 9:30 EST) WBC 5.06 4.00 - 12.40 K/cmm 03/12/2021 9:47 [facility] RBC 4.02 3.86 - 5.04 M/cmm 03/12/2021 9:47 [facility] Hemoglobin 12.7 11.6 - 15.2 gm/dL 03/12/2021 9:47 [facility] HCT 38.2 34.9 - 44.4 % 03/12/2021 9:47 [facility] MCV 95 81 - 98 fl 03/12/2021 9:47 [facility] MCH 31.6 26.7 - 33.3 pg 03/12/2021 9:47 [facility] MCHC 33.2 32.1 - 35.9 gm/dL 03/12/2021 9:47 [facility] RDW-CV 13.1 <14.7 % 03/12/2021 9:47 [facility] RDW-SD 45.9 <50.4 fl 03/12/2021 9:47 [facility] PLT 246 141 - 377 K/cmm 03/12/2021 9:47 [facility] MPV 10.8 9.5 - 12.7 fl 03/12/2021 9:47 [facility] % Neutrophils 49.3 % 03/12/2021 9:47 [facility] % Lymphocytes 37.2 % 03/12/2021 9:47 [facility] % Monocytes 9.7 % 03/12/2021 9:47 [facility] % Eosinophils 2.8 % 03/12/2021 9:47 [facility] % Basophils 0.8 % 03/12/2021 9:47 [facility] % Immature Grans 0.2 % 03/12/20 9:47 [facility] Absolute Neutrophils 2.50 2.20 - 8.85 K/cmm 03/12/2021 9:47 [facility] Absolute Lymphocytes 1.88 1.09 - 3.30 K/cmm 03/12/2021 9:47 [facility] Absolute Monocytes 0.49 0.10 - 0.80 K/cmm 03/12/2021 9:47 [facility] Absolute Eosinophils 0.14 0.03 - 0.61 K/cmm 03/12/2021 9:47 [facility] ABS Basophils 0.04 0.01 - 0.11 K/cmm 03/12/2021 9:47 [facility] Absolute Immature Grans 0.01 0.00 - 0.06 K/cmm 03/12/2021 9:47 [facility] Type of Differential: Auto 03/12/2021 9:47 [facility] Blood VENOUS BLOOD / Unknown Venipuncture / Unknown 03/12/2021 9:30 EST 03/12/2021 9:34 EST us Abebe Ralph MD PACKAGES & DNA PROBE ORDERABL ES Final Result [facility] [address] [place] [address] documented in this encounter Visit Diagnoses Diagnosis Malignant neoplasm of upper-outer quadrant of right breast in female, estrogen receptor positive ([facility]) Encounter for screening mammogram for malignant neoplasm of breast Other screening mammogram documented in this encounter Care Teams Sports Management Professor Relationship Specialty Start Date End Date Skye Hernandez [address] [place], [place] [phone] PCP - General 08/11/18 01/02/22 Kimi Deleon MD [address] [place] [phone] 05/16/20 Hannah Batres NP [address] [place], [place] [address] 05/16/20 documented as of this encounter
--- OUTSIDE RECORDS SUMMARY | 2024-04-19 08:11 | XMS_ITS | Encounter Summary ---
Author Organization [facility] Address [address] [place] [address] Care Team Providers Care Agricultural Extension Educator Name Role Phone Skye Hernandez Primary Care Provider Kimi Deleon MD Unavailable [phone] Hannah Batres NP Unavailable [phone] Reason for Visit * Reason Onset Date Comments Appointment Related 11/20/2020 Encounter Details Date Type Department Care Team (Late st Contact Info) Description 11/20/2020 Telephone [facility] Hematology & Oncology - [address] [address] Abebe Ralph MD 111 [facility], [facility] [address] [place] [address] Appointment Related Social History Tobacco [...] encounter Miscellaneous Notes * Telephone Encounter - Israel Dueñas MA - 11/20/2020 1300 EDT Called and LMOM in regards to 11/21/20 televideo appt. - documented in this encounter Plan of Treatment Upcoming Encounters Date Type Department Care Team (Late st Contact Info) Description 07/21/2024 11:00 EDT Office Visit [facility] Ophthalmology - [address] [id number] Marcial Magaña MD [address] [place] [address], [facility] [address] [place] [phone] 07/25/2024 11:00 EDT Phlebotomy Only [facility] Hematology & Oncology [address] [phone] Blood Doctor, [facility] Hem Onc 07/25/2024 11:45 EDT Office Visit [facility] Hematology & Oncology [address] 950681 Abebe Ralph MD [address] [place] [address] Level [address] [place] [address] 07/25/2024 12:30 EDT Appointment [facility] Cancer Center Hematology & Oncology - [address] [phone] 01/03/2025 16:20 EDT Appointment [facility] Breast Imaging Mammography - [address] [phone] documented as of this encounter Visit Diagnoses Not on filedocumented in this encounter Care Teams Agricultural Extension Educator Relationship Specialty Start Date End Date Skye Hernandez [address] [place] [address] PCP - General 08/11/18 01/02/22 Kimi Deleon MD [address] [place] [phone] 05/16/20 Hannah Batres NP [address] [place] [address] 05/16/20 documented as of this encounter
--- OUTSIDE RECORDS SUMMARY | 2024-04-19 08:11 | XMS_ITS | Encounter Summary ---
Author Organization [facility] Address [address] [place] [address] Care Team Providers Care Branding Specialist Name Role Phone Skye Hernandez Primary Care Provider [phone] Kimi Deleon MD Unavailable [phone] Hannah Batres NP Unavailable [phone] Reason for Visit * Reason Comments Follow-up Encounter Details Date Type Department Care Team (Late st Contact Info) Description 09/04/2020 16:00 EDT Office Visit [facility] Cancer Center Hematology & Oncology - [address] [address] Ivonne Killian MD PhD Malignant [...] Progress Notes * Ivonne Killian MD - 09/04/2020 1600 EDT This patient participated in the Shared Medical Visit today. documented in this encounter Plan of Treatment Upcoming Encounters Date Type Department Care Team (Late st Contact Info) Description 07/21/2024 11:00 EDT Office Visit [facility] Ophthalmology [address] [phone] Marcial Magaña MD [address] [place] [address], Level [address] [place] [phone] 07/25/2024 11:00 EDT Phlebotomy Only [facility] Hematology & Oncology [address] [phone] Blood Doctor, [facility] Hem Onc 07/25/2024 11:45 EDT Office Visit [facility] Hematology & Oncology [address] [phone] Abebe Ralph MD 111 [facility], [facility], Level [address] [place] [phone] 07/25/2024 12:30 EDT Appointment [facility] Center Hematology & Oncology - [address] [phone] 01/03/2025 16:20 EDT Appointment [facility] Breast Imaging Mammography - [address] [phone] documented as of this encounter Visit Diagnoses Diagnosis Malignant neoplasm of upper-outer quadrant of right breast in female, estrogen receptor positive ([facility])- Primary Encounter for screening mammogram for malignant neoplasm of breast Other screening mammogram documented in this encounter Care Teams Branding Specialist Relationship Specialty Start Date End Date Skye Hernandez [address] [place] [address] PCP - General 08/11/18 01/02/22 Kimi Deleon MD [address] [place] [phone] 05/16/20 Hannah Batres NP [address] [place] [address] 05/16/20 documented as of this encounter
--- OUTSIDE RECORDS SUMMARY | 2024-04-19 08:11 | XMS_ITS | Encounter Summary ---
Author Organization [facility] Address [address] [place] [address] Care Team Providers Care Foundry Tender Name Role Phone Skye Hernandez Primary Care Provider Kimi Deleon MD Unavailable [phone] Hannah Batres NP Unavailable [phone] Reason for Visit * Reason Comments Follow-up Skin lesion of manpreet rn on right cheek Encounter Details Date Type Department Care Team (Late st Contact Info) Description 05/28/2021 11:00 EST Office Visit [facility] Dermatology 5th Floor [facility] [address] [place] [address] Cameron Garner MD [address] [place] [phone] Seborrheic keratosis, inflamed (Primary Dx) Social History Tobacco Use Types [...] Progress Notes * Cameron Garner MD - 05/28/2021 1100 EST Derm Hx BCC left lower eyelid Rx Mohs 2007 Last seen 10/10 S Follow-up (Skin lesion of concern on right cheek) Bump gets irritated w/ mask O Right cheek brown keratotic plaque A/P # irritated melanie K rx cryo. rtc yr/prn Recommended liquid nitrogen cryosurgery to the above stated irritated seborrheic keratosis(es) CRYOSURGERY PROCEDURE NOTE PATIENT INFORMATION: Jeffery Garvey [id number] DATE OF PROCEDURE: 05/28/2021 SURGEON: Cameron Garner MD Liquid nitrogen cryosurgery was used to destroy a total of 1 lesion(s) on the above stated locations. The expected reaction and healing course were discussed, as well as the possibility of incompleteresolution and/or permanent dyspigmentation. The indication, risks, benefits and alternatives to this procedure were discussed in detail with the patient and all questions were answered and patient/parent/power of trimmer sawyer consent obtained. Verbal & written wound care instructions were given. Cameron Garner MD documented in this encounter Plan of Treatment Upcoming Encounters Date Type Department Care Team (Late st Contact Info) Description 07/21/2024 11:00 EDT Office Visit [facility] Ophthalmology - [address] [phone] Marcial Magaña MD [address] [place] [address], [facility] [address] [place] [phone] 07/25/2024 11:00 EDT Phlebotomy Only [facility] Hematology & Oncology - [address] [phone] Blood Doctor, [facility] Hem Onc 07/25/2024 11:45 EDT Office Visit [facility] Hematology & Oncology [address] [phone] Abebe Ralph MD [address] [place] [address] 2 [place] [phone] 07/25/2024 12:30 EDT Appointment [facility] Hematology & Oncology - [address] [phone] 01/03/2025 16:20 EDT Appointment [facility] Breast Imaging Mammography - [address] [phone] documented as of this encounter Visit Diagnoses Diagnosis Seborrheic keratosis, inflamed- Primary Inflamed seborrheic keratosis Encounter for screening mammogram for malignant neoplasm of breast Other screening mammogram documented in this encounter Care Teams Foundry Tender Relationship Specialty Start Date End Date Skye Hernandez [address] [place], [place] [address] PCP - General 08/11/18 01/02/22 Kimi Deleon MD [address] [place] [phone] 05/16/20 Hannah Batres NP [address] [place] [address] 05/16/20 documented as of this encounter
--- OUTSIDE RECORDS SUMMARY | 2024-04-19 08:11 | XMS_ITS | Encounter Summary ---
Author Organization [facility] Address [address] [place] [address] Care Team Providers Care Chemical Process Operator Name Role Phone Skye Hernandez Faiza Primary Care Provider [phone] Kimi Deleon MD Unavailable [phone] Hannah Batres NP Unavailable [phone] Reason for Visit * Reason Comments Eye Problem * Prior Authorization (Routine) - Closed Specialty Diagnoses / Procedures Referred By [facility] Referred To Contact Diagnoses Exudative age-related macular degeneration of both eyes with active choroidal neovascularization ([facility]) Procedures [place] INJECT INTRAVITREAL PHARMCOLOGIC [place] AFLIBERCEPT INJECTION [place] BEVACIZUMAB INJECTION Marcial Magaña MD Phone: tel: fax: Marcial Magaña MD Phone: tel: fax: Referral ID Status Reason Start Date Expiration Date Visits Re quested Visits Authorized [id number] Closed 04/19/2021 04/19/2022 13 13 Encounter Details Date Type Department Care Team (Late st Contact Info) Description 05/31/2021 10:15 EST Office Visit [facility] Ophthalmology - [facility] [address] [place] [address] Marcial Magaña MD 111 [facility], [facility] [place] [facility] [address] [place] [address] Social History Tobacco Use Types [...] Progress Notes * Marcial Magaña MD - 05/31/2021 1015 EST Chief Complaint Patient presents with ??? Eye Problem Comments Wet AMD both eyes, s/p Eylea injection right eye 04/19/2021. Pt states vision stable both eyes. Denies eye pain/discomfort both eyes. Denies flashes/floaters both eyes. HPI Location: Both eyes Pain: 0 - No pain Quality: Blurry Severity: Mild Duration: Months Timing: Constant Lasts: Continuous Context: Wet AMD both eyes, s/p Eylea injection right eye 04/19/2021. Pt states vision stable both eyes. Denies eye pain/discomfort both eyes. Denies flashes/floaters both eyes. Modifying factors: s/p Eylea injection right eye 04/19/2021, left 03/08/2021 Associated Signs & Symptoms: Pt states vision stable both eyes. Denies eye pain/discomfort botheyes. Denies flashes/floaters both eyes. Visual Fluctuations: None Attestation: Base Eye Exam Visual Acuity (Snellen - Linear) Right Left Dist sc 20/40 +2 20/25 +1 Dist ph sc 20/25 20/20 Tonometry (Applanation, 10:41) Right Left Pressure 15 15 Pupils Pupils APD Right PERRL None Left PERRL None Neuro/Psych Oriented x3: Yes Mood/Affect: Normal Dilation Both eyes: Tropicamide 1%, Phenylephrine 2.5% @ 10:43 Slit Lamp and Fundus Exam Slit Lamp [...] Right Eye Quality was good. Progression has been stable. Left Eye Quality was good. Progression has been stable. Notes Increase in PED, no fluid right eye Stable PED, no fluid left eye Intravitreal Injection, Pharmacologic Agent - OU - Both Eyes Time Out 05/31/2021. 11:36. Confirmed correct patient, procedure, site, and patient consented. Anesthesia Right Eye Topical anesthesia was used. Anesthetic medications included Proparacaine 0.5%, Tetracaine 0.5%. Left Eye Topical anesthesia was used. Anesthetic medications included Proparacaine 0.5%, Tetracaine 0.5%. Procedure Right Eye Preparation included eyelid speculum, 5% betadine to ocular surface. A 30 gauge needle was used. Injection: 2 mg aflibercept (EYLEA) intravitreal syringe [facility]: 07304-733-49, Lot: [id number], Expiration date: 07/21/2021 Route: intravitreal, Site: Right Eye Left Eye Preparation included eyelid speculum, 5% betadine to ocular surface. A 30 gauge needle was used. Injection: 2 mg aflibercept (EYLEA) intravitreal syringe [facility]: 42347-949-35, Lot: [id number], Expiration date: 09/20/2021 Route: intravitreal, Site: Left Eye Post-op Right [...] both eyes with active choroidal neovascularization([facility]) ([facility]) OCT, RETINA - OU - BOTH EYES INTRAVITREAL INJECTION, PHARMACOLOGIC AGENT - OU - BOTH EYES aflibercept (EYLEA) intravitreal syringe 2 mg aflibercept (EYLEA) intravitreal syringe 2 mg Assessment Wet age-related macular degeneration??both eyes?? Improved vision and resolution of SRF??6??weeks s/p Eylea??right eye Stable 20/25 vision with??resolution of??SRF sliver superior to fovea??12 weeks S/P Eylea left eye. Offer Eylea??both eyes??today and??continue every??6 weeks??for right eye??and 12 weeks for the left. Patient agrees ?? Nuclear??cataract both eyes Not visually significant Observe Return 6 weeks/PRN Eylea right I have reviewed the past medical, family, [...] he is personally performing the service. HENRIETTA uV (Scribe) documented in this encounter Plan of Treatment Upcoming Encounters Date Type Department Care Team (Late st Contact Info) Description 07/21/2024 11:00 EDT Office Visit [facility] Ophthalmology - [address] [phone] Marcial Magaña MD [address] [place] [address], [facility] [address] [place] [phone] 07/25/2024 11:00 EDT Phlebotomy Only [facility] Hematology & Oncology - [address] 159461 Blood Doctor, [facility] Hem Onc 07/25/2024 11:45 EDT Office Visit [facility] Hematology & Oncology - [address] [phone] Abebe Ralph MD [address] [place] [address], [facility] [address] [place] [phone] 07/25/2024 12:30 EDT Appointment [facility] Hematology & Oncology - [address] [phone] 01/03/2025 16:20 EDT Appointment [facility] Breast Imaging Mammography - [address] [phone] documented as of this encounter Procedures Procedure Name Priority Date/Time Associated Diagnosis Comments INTRAVITREAL INJECTION, PHARMACOLOGIC AGENT - OU - BOTH EYES Routine 05/31/2021 11:40 EST Exudative age-related macular degeneration of both eyes with active choroidal neovascularization ([facility]) ([facility]) OCT, RETINA - OU - BOTH EYES Routine 05/31/2021 11:22 EST Exudative age-related macular degeneration of both eyes with active choroidal neovascularization ([facility]CC-CMS) ([facility]) documented in this encounter Results * INTRAVITREAL INJECTION, PHARMACOLOGIC AGENT - OU - BOTH EYES (05/31/2021 11:40 EST) Narrative [facility] POINT OF CARE - 05/31/2021 12:31 EST Time Out 05/31/2021. 11:36. Confirmed correct patient, procedure, site, and patient consented. Anesthesia Right Eye Topical anesthesia was used. Anesthetic medications included Proparacaine 0.5%, Tetracaine 0.5%. Left Eye Topical anesthesia was used. Anesthetic medications included Proparacaine 0.5%, Tetracaine 0.5%. Procedure Right Eye Preparation included eyelid speculum, 5% betadine to ocular surface. A 30 gauge needle was used. Injection: 2 mg aflibercept (EYLEA) intravitreal syringe ??[facility]: [id number], Lot: [id number], Expiration date: 07/21/2021 ??Route: intravitreal, Site: Right Eye Left Eye Preparation included eyelid speculum, 5% betadine to ocular surface. A 30 gauge needle was used. Injection: 2 mg aflibercept (EYLEA) intravitreal syringe ??ND: [id number], Lot: [id number], Expiration date: 09/20/2021 ??Route: intravitreal, Site: Left Eye Post-op Right [...] MD OPHTH CLINIC PROCEDURES Final Re sult [facility] POINT OF CARE * OCT, RETINA - OU - BOTH EYES (05/31/2021 11:22 EST) Narrative [facility] POINT OF CARE - 05/31/2021 12:31 EST Right Eye Quality was good. Progression has been stable. Left Eye Quality was good. Progression has been stable. Notes Increase in PED, no fluid right eye Stable PED, no fluid left eye us Marcial Magaña MD OPHTH TOMOGRAPHY Final Result [facility] POINT OF CARE documented in this encounter Visit Diagnoses Diagnosis Exudative age-related macular degeneration of both eyes with active choroidal neovascularization ([facility])- Primary Encounter for screening mammogram for malignant neoplasm of breast Other screening mammogram documented in this encounter Administered Medications Inactive Administered Medications - up to 3 most recent administrations Medication Order MAR Action Action Date Dose Rate Site aflibercept (EYLEA) intravitreal syringe 2 mg 2 mg, intravitreal, Starting on Thu05/31/21 at 1136, Until Thu05/31/21 at 1432, RoutineIndications:Exudative age-related macular degeneration of both eyes with active choroidal neovascularization ([facility]) Given 05/31/2021 11:36 EST 2 mg Right E ye aflibercept (EYLEA) intravitreal syringe 2 mg 2 mg, intravitreal, Starting on Thu05/31/21 at 1136, Until Thu05/31/21 at 1432, RoutineIndications:Exudative age-related macular degeneration of both eyes with active choroidal neovascularization ([facility]) Given 05/31/2021 11:36 EST 2 mg Left Ey e documented in this encounter Orders Medications Ordered That Trevor ht Not Have Been Administered Count Last Ordered Date First Ordered Date aflibercept (EYLEA) intravit real syringe 2 mg 1 05/31/2021 documented in this encounter Eye Exam Visual Acuity (Snellen - Linear) Right eye Left eye Dist sc 20/40 +2 20/25 +1 Dist ph sc 20/25 20/20 Tonometry (Applanation, 10:41) Right eye Left eye Pressure 15 15 Pupils Pupils APD Right eye PERRL None Left eye PERRL None Neuro/Psych Oriented x3: Yes Mood/Affect: Normal Dilation Both eyes: Tropicamide 1%, P henylephrine 2.5% @ 10:43 Slit Lamp Exam Right eye Left eye [...] sions Attached without predisposing lesions Care Teams Chemical Process Operator Relationship Specialty Start Date End Date Skye Hernandez [address] [place] [address] PCP - General 08/11/18 01/02/22 Kimi Deleon MD [address] [place] [phone] 05/16/20 Hannah Batres NP [address] [place] [address] 05/16/20 documented as of this encounter
--- OUTSIDE RECORDS SUMMARY | 2024-04-19 08:11 | XMS_ITS | Encounter Summary ---
Author Organization [facility] Address [address] [place] [address] Care Team Providers Care Inspector Scales Name Role Phone Skye Hernandez Primary Care Provider [phone] Kimi Deleon MD Unavailable Hannah Batres NP Unavailable [phone] Reason for Visit * Reason Comments Telemedicine Video Visit Follow-up Encounter Details Date Type Department Care Team (Late st Contact Info) Description 11/21/2020 9:45 EDT Telemedicine [facility] Hematology & Oncology - [address] [address] Abebe Ralph MD 111 [facility], Level 2 [place] [address] Malignant neoplasm of upper-outer quadrant of right breast in female, estrogen receptor positive (HCC-CMS) (Primary Dx); Estrogen receptor positive status (ER+) Social History Tobacco Use Types Packs/Day Years [...] in this encounter Progress Notes * Abebe Raplh MD - 11/21/2020 0945 EDT Subjective Jeffery Garvey is a 70 [...] medical or mental health care. Problem list: ?? 1. 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 A. 1.8 cm cancer, 0/3 sentinel nodes, grade 2, ER/OK+, HER-2 negative (IHC = 0). LVI negative. Onco-DX = 16. B. S/B WL is/XRT, 12/09. C. Adjuvant tamoxifen, 12/09. 1. Severe ongoing vasomotor symptoms. 2. Celexa, ongoing. D. Adjuvant femara, 06/10. ?? 1. Osteoporosis. A. Prior therapy with alendronate >> poor tolerance. B. 2-year course of Forteo, completed 09/08. C. Prolia, 12/09. ?? 2. Macular degeneration, wet. A. Ongoing treatment >> a flu percept. HPI: Jeffery Garvey returns in follow-up for scheduled televideo follow-up, continuing on adjuvant Femara. She continues to be doing well. Of note she feels that Celexa has been very helpful in ameliorating her hot flashes. She is now not awakening from hot flashes at all over the night which is a pretty dramatic improvement. She additionally has been using TH CD and supplements that her son has provided her with that she feels possibly is additionally helping her sleep further as well, she is gradually titrating herself off of this however. She is overall feeling well. She had no signs or symptoms suggestive for recurrent disease. She has had no significant interval illnesses arise. She has had no breast complaints. ROS Except as noted above in the HPI, Jeffery Garveys full remaining 10 point review of systems, including constitutional, cardiac, pulmonary, GI, /PETROLEUM REFINING FIRER, neurologic, musculoskeletal, HEENT, psychiatric, and endocrine, and [...] Glaucoma Neg Hx ??? Blindness Neg Hx Current Outpatient Medications Medication Sig ??? acetaminophen (TYLENOL) 325 mg tablet Take by mouth as needed for Pain. ??? aflibercept (EYLEA) 2 mg/0.05 mL 2 mg by intravitreal route once. ??? cholecalciferol, Vitamin D3, 1,000 unit tablet Take 4,000 Units by mouth daily. ??? citalopram (CELEXA) 10 mg tablet Take 1 Tablet by mouth at bedtime. ??? denosumab 60 mg/mL syringe syringe Inject 60 mg into the skin every 6 months. (started 12/16/18 at [facility]) ??? Fish Oil-[place]-3 Fatty Acids (FISH OIL) 360-1,200 mg capsule 1360mg, 2 caps by mouth daily ??? GLYCINE ORAL Take 1,500 mg by mouth at bedtime. ??? letrozole (FEMARA) 2.5 mg tablet Take 1 Tab by mouth daily. ??? magnesium glycinate-mag oxide 120 mg magnesium capsule Take 240 mg by mouth 2 times daily. ??? multivitamin (NEPHROVITE) 0.8 mg tablet Take 1 Tablet by mouth at bedtime. ??? Multivitamins with Minerals tablet tablet Take 1 Tab by mouth daily. (contains calcium 25 mg, vitamin D 1000 iu) There were no vitals filed for this visit. Wt Readings from Last 3 Encounters: 09/03/20 69.5 kg (153 lb 3.2 oz) 07/11/20 67.9 kg (149 lb 9.6 oz) 05/16/20 69.1 kg (152 lb 4.8 oz) Physical Exam (previous) Objective: Jeffery Garvey is well appearing and [...] distress. No wheezes, no rhoncae. Breasts: S/P WL E/XRT, unchanged from prior exam, no new significant [...] edema. Lab Results Component Value Date WBC 4.63 09/03/2020 HGB 12.9 09/03/2020 HCT 39.3 09/03/2020 MCV 97 09/03/2020 PLT 221 09/03/2020 NEUTROABS 2.21 09/03/2020 CALCIUM 9.5 09/03/2020 CO2 25 09/03/2020 AST 30 09/03/2020 ALT 31 09/03/2020 TBIL <0.5 09/03/2020 CREATININE 0.72 09/03/2020 CALCCA 9.3 09/03/2020 TP 7.0 09/03/2020 K 4.8 09/03/2020 ALKPHOS 42 09/03/2020 LABALBU 4.3 09/03/2020 BUN 22 09/03/2020 CALCGFR 85 09/03/2020 CL 104 09/03/2020 SERGLU 105 (H) 09/03/2020 NA 141 09/03/2020 Imaging Assessment & Plan Jeffery Garvey returns for a scheduled televideo follow-up appointment. She continues to be doing very well overall as noted above. She additionally underwent routine annual screening mammography here at [facility] in August, study was unremarkable, BI-RADS cat 2. She is feeling well. We will schedule follow-up and continue with ongoing therapy with Prolia. Jeffery had a few questions which I answeredtoday as well. I spent a total of 40 minutes on the date of this encounter meeting with and seeing this patient, reviewing medical records, radiology reports and studies, laboratory results, updating the chart and records, documenting today's findings and recommendations, writing orders as necessary, and reviewing this all with the patient and coordinating her care and followup as necessary. TELEMEDICINE VIDEO VISIT Today's visit was provided through telemedicine video conferencing: I have reviewed the appropriateness of using video technology with the patient with regards to today's visit. The location of the patient : Home The location of the provider: Office The following staff and their role did participate in today's encounter visit: MD Abebe Gamboa MD documented in this encounter Plan of Treatment Upcoming Encounters Date Type Department Care Team (Late st Contact Info) Description 07/21/2024 11:00 EDT Office Visit [facility] Ophthalmology - [address] [phone] Marcial Magaña MD [address] [place] [address] 5 [place] [phone] 07/25/2024 11:00 EDT Phlebotomy Only [facility] Hematology & Oncology [address] 823691 Blood Doctor, [facility] Hem Onc 07/25/2024 11:45 EDT Office Visit [facility] Hematology & Oncology [address] [phone] Abebe Ralph MD [address] [place] [address], [facility] 2 [place] [phone] 07/25/2024 12:30 EDT Appointment [facility] Hematology & Oncology [address] [address] 01/03/2025 16:20 EDT Appointment [facility] Breast Imaging Mammography - [address] [phone] documented as of this encounter Visit Diagnoses Diagnosis Malignant neoplasm of upper-outer quadrant of right breast in female, estrogen receptor positive (HCC-CMS)- Primary Estrogen receptor positive status (ER+) Estrogen receptor positive status [ER+] Encounter for screening mammogram for malignant neoplasm of breast Other screening mammogram documented in this encounter Orders Appointment Requests Count Last Ordered Date Fi rst Ordered Date ONCBCN INJECTION APPOINTMENT REQUEST 1 02/21 documented in this encounter Care Teams Inspector Scales Relationship Specialty Start Date End Date Skye Hernandez 4 [place] [address] PCP - General 08/11/18 01/02/22 Kimi Deleon MD [address] [place] [address] 05/16/20 Hannah Batres NP [address] [place] [address] 05/16/20 documented as of this encounter
--- OUTSIDE RECORDS SUMMARY | 2024-04-19 08:11 | XMS_ITS | Encounter Summary ---
Author Organization [facility] Address [address] [place] [address] Care Team Providers Care Linen Checker Name Role Phone Skye Hernandez Primary Care Provider [phone] Kimi Deleon MD Unavailable [phone] Hannah Batres NP Unavailable [phone] Reason for Visit * Reason Comments Follow-up Skin lesions, lesion of concern under left eye for 3 weeks Encounter Details Date Type Department Care Team (Late st Contact Info) Description 10/12/2020 11:30 EDT Office Visit [facility] Dermatology 3rd Floor [facility] [address] [place] [address] Cameron Garner MD [address] [place] [phone] Milial cyst (Primary Dx) Social History Tobacco Use Types [...] documented in this encounter Progress Notes * Deloris Bravo MA - 10/12/2020 1130 EDT Review of Systems Constitutional: Negative for fatigue, fever and unexpected weight change. HENT: Negative for mouth sores. Eyes: Negative for pain. Respiratory: Negative for cough and shortness of breath. Cardiovascular: Negative for chest pain and palpitations. Gastrointestinal: Negative for abdominal pain, blood in stool, constipation, diarrhea, nausea and vomiting. Genitourinary: Negative for dysuria, frequency and hematuria. Musculoskeletal: Negative for myalgias, joint swelling, arthralgias and muscle stiffness in the morning. Skin: Negative for rash. Neurological: Negative for numbness and headaches. Endo/Heme/Allergies: Does not bruise/bleed easily. Psychiatric/Behavioral: Negative for sleep disturbance. The patient is not nervous/anxious. DELORIS BRAVO MA 10/12/2020 11:39 * Tisha Colvin MD - 10/12/2020 1130 EDT Dermatology Outpatient Visit Note Dermatologic History: 1. Hx of basal cell carcinoma, left lower eyelid s/p Mohs 2007 Last Dermatology office visit: 10/08 SUBJECTIVE Ms. Garvey is a 69 y.o. female who presents for Chief Complaint Patient presents with ??? Follow-up Skin lesions, lesion of concern under left eye for 3 weeks OBJECTIVE Cutaneous Cutaneous full body examination was performed. The examination was significant for: - left cheek 1 mm white papule - several scattered brown stuck on papules ASSESSMENT/PLAN Milia: - continue to monitor Sun Damaged Skin: The nature of sun-induced photo-aging and skin cancers is discussed. Sun avoidance, protective clothing, and the use of 30-SPF sunscreens is advised. Observe closely for skin damage/changes, and callif such occurs. She will f/u as planned or in the interim should problems arise. Tisha Colvin MD 10/12/2020 11:51 Attestation Statement: I saw and examined the patient with the resident/fellow. I agree with the findings and plan of care documented in the resident's/fellow's note. Cameron Garner MD documented in this encounter Plan of Treatment Upcoming Encounters Date Type Department Care Team (Late st Contact Info) Description 07/21/2024 11:00 EDT Office Visit [facility] Ophthalmology - [address] [phone] Marcial Magaña MD [address] [place] [address], [facility] 5 [place] [phone] 07/25/2024 11:00 EDT Phlebotomy Only [facility] Hematology & Oncology - [address] [phone] Blood Doctor, [facility] Hem Onc 07/25/2024 11:45 EDT Office Visit [facility] Hematology & Oncology - [address] [phone] Abebe Ralph MD [address] [place] [address], Level 2 [place] [phone] 07/25/2024 12:30 EDT Appointment [facility] Hematology & Oncology - [address] [address] 01/03/2025 16:20 EDT Appointment [facility] Breast Imaging Mammography - [address] [address] documented as of this encounter Visit Diagnoses Diagnosis Milial cyst- Primary Sebaceous cyst Encounter for screening mammogram for malignant neoplasm of breast Other screening mammogram documented in this encounter Care Teams Linen Checker Relationship Specialty Start Date End Date Skye Hernandez [address] [place] [address] PCP - General 08/11/18 01/02/22 Kimi Deleon MD [address] [place] [address] 05/16/20 Hannah Batres NP [address] [place] [address] 05/16/20 documented as of this encounter
--- OUTSIDE RECORDS SUMMARY | 2024-04-19 08:11 | XMS_ITS | Encounter Summary ---
Author Organization [facility] Address [address] [place] [address] Care Team Providers Care Internet Assessor Name Role Phone Skye Hernandez Primary Care Provider [phone] Kimi Deleon MD Unavailable [phone] Hannah Batres NP Unavailable Encounter Details Date Type Department Care Team (Latest Contact Info) Description 03/13/2021 10:00 EST - 03/13/2021 23:59 EST Hospital Encounter [facility] Hematology & Oncology - [address] [address] Estrogen receptor positive status (ER+) [...] (started 12/16/18 at [facility]) Fish Oil-[place]-3 Fatty Acids 360-1,200 mg capsule 1360mg, 2 [...] AT BEDTIME 30 Tablet 2 02/27/2021 2 letrozole (FEMARA) 2.5 mg tablet Take 1 Tab by mouth daily. 90 Tab 4 05/16/2020 2 multivitamin (NEPHROVITE) 0.8 mg tablet Take 1 Tablet by mouth at bedtime. 2 documented as of this encounter Discharge Disposition Disposition Code Departure Means Destination Home or Self Care documented in this encounter Progress Notes * Raquel Van RN - 03/13/2021 1100 EST Out-patient Injection Note Jeffery presents to clinic today for cycle #2, day # 1 of Denosumab (Prolia) supportive plan. Luciaad follow up with Dr. Ralph in clinic today. She reports feeling well and offers no complaints. Reviewed lab results with Jeffery. Chemistry: Lab Results Component Value Date NA 138 03/12/2021 K 4.5 03/12/2021 BUN 20 03/12/2021 CREATININE 0.71 03/12/2021 CALCIUM 9.4 03/12/2021 MG 2.2 03/12/2021 Parameters for today???s treatment met. Phos 3.9. CrCl=77. Jeffery reports taking calcium and vitamin D supplementation and denies any recent or upcoming invasive dental procedures. Patient received denosumab (Prolia) 60mg (see MAR) subcutaneously to left upper arm. Dressing applied. Site was free of bleeding bruising, and erythema. Jeffery tolerated injection well. Patient education: Patient educated on all medications administered today. Patient expressed understanding of education provided and no barriers identified. Jeffery was encouraged to call clinic with any symptoms, questions, or concerns. I was supervised by Dr. Ralph who was present and immediately available in the office suite. Raquel Van RN documented in this encounter Miscellaneous Notes * Addendum Note - Danielle Cerda - 03/13/2021 1100 ESTEncounter addended by: Danielle Cerda on: 03/26/2021 10:34 Actions taken: Charge Capture section accepted documented in this encounter Plan of Treatment Upcoming Encounters Date Type Department Care Team (Late st Contact Info) Description 07/21/2024 11:00 EDT Office Visit [facility] Ophthalmology - [address] [phone] Marcial Magaña MD 111 [facility], Level [address] [place] [phone] 07/25/2024 11:00 EDT Phlebotomy Only [facility] Hematology & Oncology - [address] [phone] Blood Doctor, [facility] Hem Onc 07/25/2024 11:45 EDT Office Visit [facility] Hematology & Oncology [address] [phone] Abebe Ralph MD [address] [place] [address], Level [address] [place] [phone] 07/25/2024 12:30 EDT Appointment [facility] Hematology & Oncology [address] [phone] 01/03/2025 16:20 EDT Appointment [facility] Breast Imaging Mammography - [address] [phone] documented as of this encounter Visit Diagnoses Diagnosis Estrogen receptor positive status (ER+)- Primary Estrogen receptor positive status [ER+] Other osteoporosis without current pathological fracture Encounter for screening mammogram for malignant neoplasm of breast Other screening mammogram documented in this encounter Administered Medications Inactive Administered Medications - up to 3 most recent administrations Medication Order MAR Action Action Date Dose Rate Site denosumab syringe 60 mg 60 mg, subcutaneous, NOW X1, 1 dose, On Thu03/13/21 at 1130, RoutineIndications:Estrogen receptor positive status (ER+) Given 03/13/2021 11:20 EST 60 mg Left Arm documented in this encounter Orders Medications Ordered That Trevor ht Not Have Been Administered Count Last Ordered Date First Ordered Date denosumab syringe 60 mg 1 03/13/2021 Nursing Count Last Ordered Date First Orde red Date INFORMED CONSENT 1 03/13/2021 NURSING COMMUNICATION 1 03/13/2021 Appointment Requests Count Last Ordered Date Fi rst Ordered Date ONCBCN INJECTION APPOINTMENT REQUEST 2 08/2203/13/2021 documented in this encounter Care Teams Internet Assessor Relationship Specialty Start Date End Date Skye Hernandez [address] [place] [address] PCP - General 08/11/18 01/02/22 Kimi Deleon MD [address] [place] [address] 05/16/20 Hannah Btares NP [address] [place] [address] 05/16/20 documented as of this encounter
--- OUTSIDE RECORDS SUMMARY | 2024-04-19 08:11 | XMS_ITS | Encounter Summary ---
Author Organization [facility] Address [address] [place] [address] Care Team Providers Care Management Development Specialist Name Role Phone BentleyrenettaSkye Faiza Primary Care Provider [phone] Kimi Deleon MD Unavailable [phone] Hannah Batres NP Unavailable [phone] Reason for Visit * Reason Onset Date Comments Pre-visit Planning 11/21/2020 Encounter Details Date Type Department Care Team (Late st Contact Info) Description 11/21/2020 Telephone [facility] Hematology & Oncology - [facility] [address] [place] [address] Stephanie Wray RN Pre-visit Planning Social History Tobacco Use Types Packs/Day Years [...] encounter Miscellaneous Notes * Telephone Encounter - Stephanie Wray RN - 11/21/2020 5566 EDT ----- Message from Tien Maier sent at 11/21/2020 10:37 EDT ----- Can you update inj dates for 03/13/21 documented in this encounter Plan of Treatment Upcoming Encounters Date Type Department Care Team (Late st Contact Info) Description 07/21/2024 11:00 EDT Office Visit [facility] Ophthalmology - [address] [phone] Marcial Magaña MD [address] [place] [address] [address] [place] [address] 07/25/2024 11:00 EDT Phlebotomy Only [facility] Hematology & Oncology - [address] [phone] Blood Doctor, [facility] Hem Onc 07/25/2024 11:45 EDT Office Visit [facility] Hematology & Oncology [address] [phone] Abebe Ralph MD [address] [place] [address], Level [address] [place] [address] 07/25/2024 12:30 EDT Appointment [facility] Center Hematology & Oncology - [address] [phone] 01/03/2025 16:20 EDT Appointment [facility] Breast Imaging Mammography - [address] 191201 documented as of this encounter Visit Diagnoses Not on filedocumented in this encounter Care Teams Management Development Specialist Relationship Specialty Start Date End Date Skye Hernandez [address] [place] [address] PCP - General 08/11/18 01/02/22 Kimi Deleon MD [address] [place] [address] 05/16/20 Hannah Batres NP [address] [place] [address] 05/16/20 documented as of this encounter
--- OUTSIDE RECORDS SUMMARY | 2024-04-19 08:11 | XMS_ITS | Encounter Summary ---
Author Organization [facility] Address [address] [place] [address] Care Team Providers Care Pot Holder Binder Name Role Phone Skye Hernandez Faiza Primary Care Provider [phone] Kimi Deleon MD Unavailable [phone] Hannah Batres NP Unavailable [phone] Millie Hilton MD Primary Care Provider Reason for Visit * Reason Comments Other Encounter Details Date Type Department Care Team (Late st Contact Info) Description 05/25/2021 [facility] Hematology & Oncology - [address] [phone] Abebe Ralph MD 111 [facility], Level [address] [place] [address] Other Social History Tobacco Use [...] BY MOUTH AT BEDTIME 30 Tablet 2 05/27/2021 2 documented in this encounter Plan of Treatment Upcoming Encounters Date Type Department Care Team (Late st Contact Info) Description 07/21/2024 11:00 EDT Office Visit [facility] Ophthalmology [address] [phone] Marcial Magaña MD [address] [place] [address], Level [address] [place] [phone] 07/25/2024 11:00 EDT Phlebotomy Only [facility] Hematology & Oncology [address] [phone] Blood Doctor, [facility] Hem Onc 07/25/2024 11:45 EDT Office Visit [facility] Hematology & Oncology [address] [phone] Abebe Ralph MD 111 [facility], [facility], Level [address] [place] [phone] 07/25/2024 12:30 EDT Appointment [facility] Hematology & Oncology - [address] [phone] 01/03/2025 16:20 EDT Appointment [facility] Breast Imaging Mammography - [address] [phone] documented as of this encounter Visit Diagnoses [...] TAKE 1 TABLET BY MOUTH AT BEDTIME 02/27/2021 05/27/2021 documented as of this encounter Care Teams Pot Holder Binder Relationship Specialty Start Date End Date Skye Hernandez [address] [place], [place] [address] PCP - General 08/11/18 01/02/22 Millie Hilton MD 4 [place], [place] [address] PCP - General 01/03/22 Kimi Deleon MD [address] [place] [address] 05/16/20 Hannah Batres NP [address] [place] [address] 05/16/20 documented as of this encounter
--- OUTSIDE RECORDS SUMMARY | 2024-04-19 08:11 | XMS_ITS | Encounter Summary ---
Author Organization [facility] Address [address] [place] [address] Care Team Providers Care Mold Carpenter Name Role Phone Skye Hernandez Primary Care Provider [phone] Kimi Deleon MD Unavailable Hannah Batres NP Unavailable [phone] Encounter Details Date Type Department Care Team (Late st Contact Info) Description 03/13/2021 Orders Only [facility] Center Hematology & Oncology - [place] [address] [place] [address] Heather Do, CÉSAR [address] [place] [address] Social History Tobacco Use Types Packs/Day Years [...] Description 07/21/2024 11:00 EDT Office Visit [facility] Ophthalmology - [address] [phone] Marcial Magaña MD [address] [place] [address] 5 [place] [phone] 07/25/2024 11:00 EDT Phlebotomy Only [facility] Hematology & Oncology - [address] 367[address] Blood Doctor, [facility] Hem Onc 07/25/2024 11:45 EDT Office Visit [facility] Hematology & Oncology [address] [phone] Abebe Ralph MD [address] [place] [address], Level [address] [place] [phone] 07/25/2024 12:30 EDT Appointment [facility] Hematology & Oncology [address] [phone] 01/03/2025 16:20 EDT Appointment [facility] Breast Imaging Mammography - [address] [phone] documented as of this encounter Visit Diagnoses Not on filedocumented in this encounter Care Teams Mold Carpenter Relationship Specialty Start Date End Date Skye Hernandez [address] [place] [address] PCP - General 08/11/18 01/02/22 Kimi Deleon MD [address] [place] [phone] 05/16/20 Hannah Batres NP [address] [place], [place] [address] 05/16/20 documented as of this encounter
--- OUTSIDE RECORDS SUMMARY | 2024-04-19 08:11 | XMS_ITS | Encounter Summary ---
Author Organization [facility] Address [address] [place] [address] Care Team Providers Care Diesel Machinist Name Role Phone Skye Hernandez Faiza Primary Care Provider Kimi Deleon MD Unavailable [phone] Hnanah Batres NP Unavailable [phone] Reason for Visit * Reason Comments Eye Problem * Prior Authorization (Routine) - Closed Specialty Diagnoses / Procedures [facility] Referred To Contact Diagnoses Exudative age-related macular degeneration of both eyes with active choroidal neovascularization ([facility]) Procedures OH INJECT INTRAVITREAL PHARMCOLOGIC OH AFLIBERCEPT INJECTION OH BEVACIZUMAB INJECTION Marcial Magaña MD Phone: tel: fax: Marcial Magaña MD Phone: tel: fax: Referral ID Status Reason Start Date Expiration Date Visits Re quested Visits Authorized [id number] Closed 04/19/2021 04/19/2022 13 13 Encounter Details Date Type Department Care Team (Late st Contact Info) Description 08/23/2021 12:30 EDT Office Visit [facility] Ophthalmology - [address] [address] Marcial Magaña MD [address] [facility], [address] [place] [address] Social History Tobacco Use Types [...] Progress Notes * Marcial Magaña MD - 08/23/2021 1230 EDT Chief Complaint Patient presents with ??? Eye Problem Comments 6 wk follow up- Wet AMD both eyes, s/p Eylea right eye 07/12/21, left eye 05/31/2021. Here today for Eylea both eyes. HPI Location: Both eyes Pain: 0 - No pain Quality: Severity: Moderate Duration: Timing: Constant Lasts: Continuous Context: 6 wk follow up- Wet AMD both eyes. Modifying factors: s/p Eylea right eye 07/12/21, left eye 05/31/2021 Associated Signs & Symptoms: pt reports stable vision both eyes. denies eye pain/discomfort both eyes. occl floater right eye- not new or worse. denies flashes both eyes. Visual Fluctuations: None Attestation: Base Eye Exam Visual Acuity (Snellen - Linear) Right Left Dist sc 20/40 -1 20/25 -2 Dist ph sc 20/30 Tonometry (Applanation, 12:49) Right Left Pressure 17 17 Pupils Pupils APD Right PERRL None Left PERRL None Neuro/Psych Oriented x3: Yes Mood/Affect: Normal Dilation Both eyes: Phenylephrine 2.5%, Tropicamide 1% @ 12:51 Slit Lamp and Fundus Exam Slit Lamp [...] been stable. Findings include pigment epithelial detachment. Intravitreal Injection, Pharmacologic Agent - OU - Both Eyes Time Out 08/23/2021. 13:48. Confirmed correct patient, procedure, site, and patient consented. Anesthesia Right Eye Topical anesthesia was used. Anesthetic medications included Proparacaine 0.5%, Tetracaine 0.5%. Left Eye Topical anesthesia was used. Anesthetic medications included Proparacaine 0.5%, Tetracaine 0.5%. Procedure Right Eye Preparation included 5% betadine to ocular surface. A 30 gauge needle was used. Injection: 2 mg aflibercept (EYLEA) intravitreal syringe [facility]: 36666-020-12, Lot: [id number], Expiration date: 01/23/2022 Route: intravitreal, Site: Right Eye Left Eye Preparation included 5% betadine to ocular surface, eyelid speculum. A 30 gauge needle was used. Injection: 2 mg aflibercept (EYLEA) intravitreal syringe [facility]: 16933-698-19, Lot: [id number], Expiration date: 04/25/2022 Route: intravitreal, Site: Left Eye Post-op Right [...] of both eyes with active choroidal neovascularization([facility]) ([facility]) OCT, RETINA - OU - BOTH EYES INTRAVITREAL INJECTION, PHARMACOLOGIC AGENT - OU - BOTH EYES aflibercept (EYLEA) intravitreal syringe 2 mg aflibercept (EYLEA) intravitreal syringe 2 mg Assessment Assessment Wet age-related macular degeneration??both eyes?? Improved vision with resolution of SRF??6??weeks s/p Eylea??right eye. Had fluid and vision loss 8 weeks out. Stable 20/25 vision with??resolution of??SRF sliver superior to fovea??12 weeks S/P Eylea left eye. Offer Eylea??right eye??today and??continue every??6 weeks??for right eye??and 12 weeks for the left. Patient agrees ?? Nuclear??cataract both eyes Not visually significant Observe I have reviewed the past medical, family, [...] Info) Description 07/21/2024 11:00 EDT Office Visit [facility] Ophthalmology - [address] [address] Marcial Magaña MD [address] [facility], [address] [place] [phone] 07/25/2024 11:00 EDT Phlebotomy Only [facility] Hematology & Oncology - [address] [id number] Blood Doctor, [facility] Hem Onc 07/25/2024 11:45 EDT Office Visit [facility] Hematology & Oncology - [address] [phone] Abebe Ralph MD [address] [facility], [address] [place] [phone] 07/25/2024 12:30 EDT Appointment [facility] Hematology & Oncology - [address] [phone] 01/03/2025 16:20 EDT Appointment [facility] Breast Imaging Mammography - [address] [phone] documented as of this encounter Procedures Procedure Name Priority Date/Time Associated Diagnosis Comments OCT, RETINA - OU - BOTH EYES Routine 08/25/2021 9:14 EDT Exudative age-related macular degeneration of both eyes with active choroidal neovascularization (HCC-CMS) ([facility]) INTRAVITREAL INJECTION, PHARMACOLOGIC AGENT - OU - BOTH EYES Routine 08/23/2021 12:30 EDT Exudative age-related macular degeneration of both eyes with active choroidal neovascularization (HCC-CMS) ([facility]) documented in this encounter Results * OCT, RETINA - OU - BOTH EYES (08/25/2021 9:14 EDT) Narrative [facility] POINT OF CARE - 08/25/2021 9:14 EDT Right Eye Quality was good. Scan locations included subfoveal. Progression has been stable. Findings include pigment epithelial detachment. Left Eye Quality was good. Scan locations included subfoveal. Progression has been stable. Findings include pigment epithelial detachment. Marcial Magaña MD OPHTH TOMOGRAPHY Final Result Performing Organization Address [facility]/ZIP Co de Phone Number [facility]INT [facility] * INTRAVITREAL INJECTION, PHARMACOLOGIC AGENT - OU - BOTH EYES (08/23/2021 12:30 EDT) Narrative [facility] - 08/25/2021 9:14 EDT Time Out 08/23/2021. 13:48. Confirmed correct patient, procedure, site, and patient consented. Anesthesia Right Eye Topical anesthesia was used. Anesthetic medications included Proparacaine 0.5%, Tetracaine 0.5%. Left Eye Topical anesthesia was used. Anesthetic medications included Proparacaine 0.5%, Tetracaine 0.5%. Procedure Right Eye Preparation included 5% betadine to ocular surface. A 30 gauge needle was used. Injection: 2 mg aflibercept (EYLEA) intravitreal syringe ??ND: 33738-981-33, Lot: [id number], Expiration date: 01/23/2022 ??Route: intravitreal, Site: Right Eye Left Eye Preparation included 5% betadine to ocular surface, eyelid speculum. A 30 gauge needle was used. Injection: 2 mg aflibercept (EYLEA) intravitreal syringe ??NDC: 91045-462-74, Lot: [id number], Expiration date: 04/25/2022 ??Route: intravitreal, Site: Left Eye Post-op Right Eye Post injection exam found visual acuity of at least counting fingers. The patient tolerated the procedure well. There were no complications. Left Eye Post injection exam found visual acuity of at least counting fingers. The patient tolerated the procedure well. There were no complications. Marcial Magaña MD OPH CLINIC PROCEDURES Final Re sult Performing Organization Address [facility]/ZIP Co de Phone Number [facility] documented in this encounter Visit Diagnoses Diagnosis Exudative age-related macular degeneration of both eyes with active choroidal neovascularization ([facility])- Primary Encounter for screening mammogram for malignant neoplasm of breast Other screening mammogram documented in this encounter Administered Medications Inactive Administered Medications - up to 3 most recent administrations Medication Order MAR Action Action Date Dose Rate Site aflibercept (EYLEA) intravitreal syringe 2 mg 2 mg, intravitreal, Starting on Thu08/23/21 at 1230, Until Thu08/23/21 at 1230, RoutineIndications:Exudative age-related macular degeneration of both eyes with active choroidal neovascularization (HCC-CMS) Given 08/23/2021 12:30 EDT 2 mg Right E ye aflibercept (EYLEA) intravitreal syringe 2 mg 2 mg, intravitreal, Starting on Thu08/23/21 at 1230, Until Thu08/23/21 at 1230, RoutineIndications:Exudative age-related macular degeneration of both eyes with active choroidal neovascularization (HCC-CMS) Given 08/23/2021 12:30 EDT 2 mg Left Ey e documented in this encounter Orders Medications Ordered That Trevor ht Not Have Been Administered Count Last Ordered Date First Ordered Date aflibercept (EYLEA) intravit real syringe 2 mg 1 08/23/2021 documented in this encounter Eye Exam Visual Acuity (Snellen - Linear) Right eye Left eye Dist sc 20/40 -1 20/25 -2 Dist ph sc 20/30 Tonometry (Applanation, 12:49) Right eye Left eye Pressure 17 17 Pupils Pupils APD Right eye PERRL None Left eye PERRL None Neuro/Psych Oriented x3: Yes Mood/Affect: Normal Dilation Both eyes: Phenylephrine 2.5 %, Tropicamide 1% @ 12:51 Slit Lamp Exam Right eye Left eye [...] sions Attached without predisposing lesions Care Teams Diesel Machinist Relationship Specialty Start Date End Date Skye Hernandez [address] [place] [address] PCP - General 08/11/18 01/02/22 Kimi Deleon MD [address] [place] [address] 05/16/20 Hannah Batres NP [address] [place] [address] 05/16/20 documented as of this encounter
--- OUTSIDE RECORDS SUMMARY | 2024-04-19 08:11 | XMS_ITS | Encounter Summary ---
Author Organization [facility] Address [address] [place] [address] Care Team Providers Care Operating Room Aide Name Role Phone Skye Hernandez Primary Care Provider Kimi Deleon MD Unavailable Hannah Batres NP Unavailable [phone] Reason for Visit * Reason Comments Injections Encounter Details Date Type Department Care Team (Late st Contact Info) Description 09/14/2020 10:45 EDT Office Visit [facility] Ophthalmology - [address] [address] Marcial Magaña MD [address] [facility], [address] [place] [address] Social History Tobacco Use Types [...] Progress Notes * Marcial Magaña MD - 09/14/2020 1045 EDT Chief Complaint Patient presents with ??? Injections Comments Pt her for 5 week Injection of Eylea both eyes. No changes in VA, no eye pain, no new F/F HPI Location: Both eyes Pain: 0 - No pain Quality: Blurry Severity: Moderate Duration: Years Timing: Lasts: Continuous Context: VA stable-Both eyes. No floaters or flashes. No pain Modifying factors: S/P Eylea-Both eyes (08/10/20) Associated Signs & Symptoms: Wet AMD-Both eyes with CNV. Visual Fluctuations: None Attestation: Base Eye Exam Visual Acuity (Snellen - Linear) Right Left Dist sc 20/40-1 20/30-1 Dist ph sc 20/30- 20/20-1 Tonometry (Applanation, 11:16, WS) Right Left Pressure 15 13 Neuro/Psych Oriented x3: Yes Mood/Affect: Normal [...] good. Scan locations included subfoveal. Progression has improved. Left Eye Quality was good. Scan locations included subfoveal. Progression has improved. Notes Right: Stable PED,drusen,No fluid Left: Drusen, No fluid Intravitreal Injection, Pharmacologic Agent - OU - Both Eyes Time Out 09/14/2020. 11:54. Confirmed correct patient, procedure, site, and patient consented. Anesthesia Right Eye Topical anesthesia was used. Anesthetic medications included Tetracaine 0.5%. Left Eye Topical anesthesia was used. Anesthetic medications included Tetracaine 0.5%. Procedure Right Eye Preparation included eyelid speculum, 5% betadine to ocular surface. A 30 gauge needle was used. Injection: 2 mg aflibercept 2 mg/0.05 mL NDC: 66400-993-42, Lot: [id number], Expiration date: 12/15/2020 Route: intravitreal, Site: Right Eye Left Eye Preparation included eyelid speculum, 5% betadine to ocular surface. A 30 gauge needle was used. 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 Stable??20/30 vision,??with??resolution of SRF??5 weeks s/p Eylea right eye Stable 20/25 vision with resolution of SRF sliver superior to fovea 5 weeks s/p Eylea left eye Offer Eylea??both eyes today and??attempt extension to 6 weeks Patient agrees ?? Nuclear cataract both eyes Not visually significant Observe Return 6 weeks or PRN Eylea-Both eyes I have reviewed the past medical, [...] Visit [facility] Ophthalmology - [address] [phone] Marcial Magaña MD [address] [place] [address] [address] [place] [phone] 07/25/2024 11:00 EDT Phlebotomy Only [facility] Hematology & Oncology - [address] [phone] Blood Doctor, [facility] Hem Onc 07/25/2024 11:45 EDT Office Visit [facility] Hematology & Oncology - [address] [phone] Abebe Ralph MD [address] [place] [address], [address] [place] [address] 07/25/2024 12:30 EDT Appointment [facility] Hematology & Oncology - [address] [address] 01/03/2025 16:20 EDT Appointment [facility] Breast Imaging Mammography - [address] [address] documented as of this encounter Procedures Procedure Name Priority Date/Time Associated Diagnosis Comments INTRAVITREAL INJECTION, PHARMACOLOGIC AGENT - OU - BOTH EYES Routine 09/14/2020 11:56 EDT Exudative age-related macular degeneration of both eyes with active choroidal neovascularization ([facility]) OCT, RETINA - OU - BOTH EYES Routine 09/14/2020 11:42 EDT Exudative age-related macular degeneration of both eyes with active choroidal neovascularization ([facility]) documented in this encounter Results * INTRAVITREAL INJECTION, PHARMACOLOGIC AGENT - OU - BOTH EYES (09/14/2020 11:56 EDT) Narrative [facility] POINT OF CARE - 09/14/2020 12:22 EDT Time Out 09/14/2020. 11:54. Confirmed correct patient, procedure, site, and patient consented. Anesthesia Right Eye Topical anesthesia was used. Anesthetic medications included Tetracaine 0.5%. Left Eye Topical anesthesia was used. Anesthetic medications included Tetracaine 0.5%. Procedure Right Eye Preparation included eyelid speculum, 5% betadine to ocular surface. A 30 gauge needle was used. Injection: 2 mg aflibercept 2 mg/0.05 mL ??ND: 91665-206-29, Lot: [id number], Expiration date: 12/15/2020 ??Route: intravitreal, Site: Right Eye Left Eye Preparation included eyelid speculum, 5% betadine to ocular surface. A 30 gauge needle was used. Injection: 2 mg aflibercept 2 mg/0.05 mL ??NDC: 68083-817-98, Lot: [id number], Expiration date: 01/14/2021 ??Route: intravitreal, Site: Left Eye Post-op Right [...] PROCEDURES Final Re sult Performing Organization Address [facility] Co de Phone Number [facility] POINT OF CARE * OCT, RETINA - OU - BOTH EYES (09/14/2020 11:42 EDT) Narrative [facility] POINT OF CARE - 09/14/2020 12:22 EDT Right Eye Quality was good. Scan locations included subfoveal. Progression has improved. Left Eye Quality was good. Scan locations included subfoveal. Progression has improved. Notes Right: Stable PED,drusen,No fluid Left: Drusen, No fluid Marcial Magaña MD OPHTH TOMOGRAPHY Final Result Performing Organization Address [facility] Co de Phone Number [facility] POINT OF CARE documented in this encounter Visit Diagnoses Diagnosis Exudative age-related macular degeneration of both eyes with active choroidal neovascularization ([facility])- Primary Encounter for screening mammogram for malignant neoplasm of breast Other screening mammogram documented in this encounter Administered Medications Inactive Administered Medications - up to 3 most recent administrations Medication Order MAR Action Action Date Dose Rate Site aflibercept (EYLEA) intravitreal syringe 2 mg 2 mg, intravitreal, Starting on Thu09/14/20 at 1154, Until Thu09/14/20 at 1427, RoutineIndications:Exudative age-related macular degeneration of both eyes with active choroidal neovascularization (HCC-CMS) Given 09/14/2020 11:54 EDT 2 mg Right E ye aflibercept (EYLEA) intravitreal syringe 2 mg 2 mg, intravitreal, Starting on Thu09/14/20 at 1153, Until Thu09/14/20 at 1427, RoutineIndications:Exudative age-related macular degeneration of both eyes with active choroidal neovascularization (HCC-CMS) Given 09/14/2020 11:53 EDT 2 mg Left Ey e documented in this encounter Orders Medications Ordered That Trevor ht Not Have Been Administered Count Last Ordered Date First Ordered Date aflibercept (EYLEA) intravit real syringe 2 mg 1 09/14/2020 documented in this encounter Eye Exam Visual Acuity (Snellen - Linear) Right eye Left eye Dist sc 20/40-1 20/30-1 Dist ph sc 20/30- 20/20-1 Tonometry (Applanation, 11:16, WS) Right eye Left eye Pressure 15 13 Neuro/Psych Oriented x3: Yes Mood/Affect: Normal [...] sions Attached without predisposing lesions Care Teams Operating Room Aide Relationship Specialty Start Date End Date Skye Hernandez [address] [place] [address] PCP - General 08/11/18 01/02/22 Kimi Deleon MD [address] [place] [address] 05/16/20 Hannah Batres NP [address] [place] [address] 05/16/20 documented as of this encounter
--- OUTSIDE RECORDS SUMMARY | 2024-04-19 08:11 | XMS_ITS | Encounter Summary ---
Author Organization [facility] Address [address] [place] [address] Care Team Providers Care Dairy Manufacturing Technologist Name Role Phone Skye Hernandez Primary Care Provider Kimi Deleon MD Unavailable Hannah Batres NP Unavailable [phone] Reason for Visit * Reason Comments Other Encounter Details Date Type Department Care Team (Late st Contact Info) Description 07/24/2021 [facility] Center Hematology & Oncology - [facility] [address] [place], [place] [phone] Abebe Ralph MD [address] [facility], [address] [place] [address] Other Social History Tobacco Use [...] Refills Last Filled Start Date End Date letrozole (FEMARA) 2.5 mg tablet TAKE 1 TABLET BY MOUTH DAILY 90 Tablet 4 07/24/2021 02/05/2022 documented in this encounter Miscellaneous Notes * Telephone Encounter - Stephanie Wray RN - 07/24/2021 1103 EDT Medication Rx Request Medication: letrozole Last Visit in login department: 03/13/21 Next appointment Scheduled: 08/2221 Date previous Rx written: 05/16/21 Documentation reviewed,letrozole prescription signed and sent per Dr Ralph's note. documented in this encounter Plan of Treatment Upcoming Encounters Date Type Department Care Team (Late st Contact Info) Description 07/21/2024 11:00 EDT Office Visit [facility] Ophthalmology - [address] [address] Marcial Magaña MD [address] [place] [address], [address] [place] [phone] 07/25/2024 11:00 EDT Phlebotomy Only [facility] Hematology & Oncology - [address] [phone] Blood Doctor, [facility] Hem Onc 07/25/2024 11:45 EDT Office Visit [facility] Hematology & Oncology [address] [address] Abebe Ralph MD [address] [facility], [address] [place] [phone] 07/25/2024 12:30 EDT Appointment [facility] Hematology & Oncology [address] [phone] 01/03/2025 16:20 EDT Appointment [facility] Breast Imaging Mammography - [address] [phone] documented as of this encounter Visit Diagnoses Not on filedocumented in this encounter Discontinued Medications Medication Sig Discontinue Reason Start Date End Da te letrozole (FEMARA) 2.5 mg tablet Take 1 Tab by mouth daily. 05/16/2020 07/24/2021 documented as of this encounter Care Teams Dairy Manufacturing Technologist Relationship Specialty Start Date End Date Skye Hernandez [address] [place] [address] PCP - General 08/11/18 01/02/22 Kimi Deleon MD [address] [place] [address] 05/16/20 Hannah Batres NP [address] [place] [address] 05/16/20 documented as of this encounter
--- OUTSIDE RECORDS SUMMARY | 2024-04-19 08:11 | XMS_ITS | Encounter Summary ---
Author Organization [facility] Address [address] [place] [address] Care Team Providers Care Mail Order Sorter Name Role Phone Skye Hernandez Primary Care Provider Kimi Deleon MD Unavailable Hannah Batres NP Unavailable [phone] Reason for Visit * Reason Comments Eye Problem Encounter Details Date Type Department Care Team (Late st Contact Info) Description 01/25/2021 14:15 EDT Office Visit [facility] Ophthalmology - [address] [address] Marcial Magaña MD 111 [facility], Level 5 [place] [address] Social History Tobacco Use Types [...] Progress Notes * Marcial Magaña MD - 01/25/2021 1415 EDT Chief Complaint Patient presents with ??? 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 HPI Location: Both eyes Pain: 0 - No pain Quality: Blurry Severity: Moderate Duration: Years Timing: Constant Lasts: Continuous Context: Vision is stable, no eye pain, no flashes or floaters. Modifying factors: Associated Signs & Symptoms: Visual Fluctuations: None Attestation: Base Eye Exam Visual Acuity (Snellen - Linear) Right Left Dist sc 20/25 20/25 -1 Tonometry (Applanation, 14:40) Right Left Pressure 16 15 Neuro/Psych Oriented x3: Yes Mood/Affect: Normal Dilation Both eyes: Tropicamide 1%, Phenylephrine 2.5% @ 14:41 Slit Lamp and Fundus Exam Slit Lamp [...] was good. Scan locations included subfoveal. Notes Right: Stable PED, resolution of SRF Left: PED, No fluid Intravitreal Injection, Pharmacologic Agent - OD - Right Eye Time Out 01/25/2021. 16:11. Confirmed correct patient, procedure, site, and patient consented. Anesthesia Topical anesthesia was used. Anesthetic medications included Tetracaine 0.5%, Proparacaine 0.5%. Procedure Preparation included eyelid speculum, 5% betadine to ocular surface. A 30 gauge needle was used. Injection: 2 mg aflibercept (EYLEA) intravitreal syringe [facility]: 31224-623-90, Lot: [id number], Expiration date: 03/23/2021 Route: intravitreal, Site: Right Eye Post-op Post injection exam found visual acuity of at least counting fingers. The patient tolerated the procedure well. There were no complications. The patient received written and verbal post procedure care education. Post injection medications were not given. DIAGNOSES: 1. Exudative age-related macular degeneration of both eyes with active choroidal neovascularization([facility]) ([facility]) OCT, RETINA - OU - BOTH EYES INTRAVITREAL INJECTION, PHARMACOLOGIC AGENT - OD - RIGHT EYE aflibercept (EYLEA) intravitreal syringe 2 mg 2. 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 Improved vision and resolution of SRF 5 vs 8??weeks s/p Eylea??right eye Stable 20/25 vision with??resolution of??SRF sliver superior to fovea??left eye. Was controlled 8 weeks out, now 5 weeks out. Offer Eylea??right eye??today and??return to 6 week interval for right eye Attempt extension to 12 weeks left eye Patient agrees ?? Nuclear??cataract both eyes Not visually significant Observe ?? Return in 6 weeks for Eylea both [...] Info) Description 07/21/2024 11:00 EDT Office Visit [facility] Ophthalmology - [address] [phone] Marcial Magaña MD [address] [place] [address], [facility] 5 [place] [phone] 07/25/2024 11:00 EDT Phlebotomy Only [facility] Hematology & Oncology - [address] [phone] Blood Doctor, [facility] Hem [facility]c 07/25/2024 11:45 EDT Office Visit [facility] Hematology & Oncology - [address] [address] Abebe Ralph MD [address] [place] [address], [facility] 2 [place] [phone] 07/25/2024 12:30 EDT Appointment [facility] Hematology & Oncology - [address] [phone] 01/03/2025 16:20 EDT Appointment [facility] Breast Imaging Mammography - [address] [phone] documented as of this encounter Procedures Procedure Name Priority Date/Time Associated Diagnosis Comments INTRAVITREAL INJECTION, PHARMACOLOGIC AGENT - OD - RIGHT EYE Routine 01/25/2021 16:23 EDT Exudative age-related macular degeneration of both eyes with active choroidal neovascularization (HCC-CMS) (HCC) OCT, RETINA - OU - BOTH EYES Routine 01/25/2021 16:04 EDT Exudative age-related macular degeneration of both eyes with active choroidal neovascularization (HCC-CMS) ([facility]) documented in this encounter Results * INTRAVITREAL INJECTION, PHARMACOLOGIC AGENT - OD - RIGHT EYE (01/25/2021 16:23 EDT) Narrative [facility] POINT OF CARE - 02/19/2021 8:28 EST Time Out 01/25/2021. 16:11. Confirmed correct patient, procedure, site, and patient consented. Anesthesia Topical anesthesia was used. Anesthetic medications included Tetracaine 0.5%, Proparacaine 0.5%. Procedure Preparation included eyelid speculum, 5% betadine to ocular surface. A 30 gauge needle was used. Injection: 2 mg aflibercept (EYLEA) intravitreal syringe ??[facility]: 97904-480-38, Lot: [id number], Expiration date: 03/23/2021 ??Route: intravitreal, Site: Right Eye Post-op Post injection exam found visual acuity of at least counting fingers. The patient tolerated the procedure well. There were no complications. The patient received written and verbal post procedure care education. Post injection medications were not given. Marcial Magaña MD OPH CLINIC PROCEDURES Final Re sult Performing Organization Address [facility] Co de Phone Number [facility] POINT OF CARE * OCT, RETINA - OU - BOTH EYES (01/25/2021 16:04 EDT) Narrative [facility] POINT OF CARE - 02/19/2021 8:28 EST Right Eye Quality was good. Scan locations included subfoveal. Left Eye Quality was good. Scan locations included subfoveal. Notes Right: Stable PED, resolution of SRF Left: PED, No fluid Marcial Magaña MD OPHTH TOMOGRAPHY Final Result Performing Organization Address [facility] Co de Phone Number [facility] documented in this encounter Visit Diagnoses [...] 2 mg 2 mg, intravitreal, Starting on Thu01/25/21 at 1623, Until Thu01/25/21 at 1623, RoutineIndications:Exudative age-related macular degeneration of both eyes with active choroidal neovascularization ([facility]) Given 01/25/2021 16:23 EDT 2 mg Right E ye documented in this encounter Orders Medications Ordered That Trevor ht Not Have Been Administered Count Last Ordered Date First Ordered Date aflibercept (EYLEA) intravit real syringe 2 mg 1 01/25/2021 documented in this encounter Eye Exam Visual Acuity (Snellen - Linear) Right eye Left eye Dist sc 20/25 20/25 -1 Tonometry (Applanation, 14:40) Right eye Left eye Pressure 16 15 Neuro/Psych Oriented x3: Yes Mood/Affect: Normal Dilation Both eyes: Tropicamide 1%, P henylephrine 2.5% @ 14:41 Slit Lamp Exam Right eye Left eye [...] sions Attached without predisposing lesions Care Teams Mail Order Sorter Relationship Specialty Start Date End Date Skye Hernandez [address] [place] [address] PCP - General 08/11/18 01/02/22 Kimi Deleon MD [address] [place] [phone] 05/16/20 Hannah Batres PACKING MACHINE OPERATOR [address] [place] [address] 05/16/20 documented as of this encounter
--- OUTSIDE RECORDS SUMMARY | 2024-04-19 08:11 | XMS_ITS | Encounter Summary ---
Author Organization [facility] Address [address] [place] [address] Care Team Providers Care Road Packer Operator Name Role Phone BentleyrenettaSkye Faiza Primary Care Provider [phone] Kimi Deleon MD Unavailable Hannah Batres NP Unavailable [phone] Reason for Visit * Reason Onset Date Comments Appointment Related 12/25/2020 Encounter Details Date Type Department Care Team (Late st Contact Info) Description 12/25/2020 Telephone [facility] Ophthalmology - [address] [address] Marcial Magaña MD 111 [facility], Level 5 [place] [address] Appointment Related Social History Tobacco [...] * Telephone Encounter - Shannan Salas - 12/25/2020 0914 EDT Lmom for pt to call back and schedule next appt. Reminder has been placed documented in this encounter Plan of Treatment Upcoming Encounters Date Type Department Care Team (Late st Contact Info) Description 07/21/2024 11:00 EDT Office Visit [facility] Ophthalmology [address] [phone] Marcial Magaña MD [address] [place] [address] 5 [place] [phone] 07/25/2024 11:00 EDT Phlebotomy Only [facility] Hematology & Oncology - [address] [phone] Blood Doctor, [facility] Hem Onc 07/25/2024 11:45 EDT Office Visit [facility] Hematology & Oncology [address] [phone] Abebe Ralph MD [address] [place] [address], Level [address] [place] [address] 07/25/2024 12:30 EDT Appointment [facility] Hematology & Oncology - [address] [address] 01/03/2025 16:20 EDT Appointment [facility] Breast Imaging Mammography - [address] [phone] documented as of this encounter Visit Diagnoses Not on filedocumented in this encounter Care Teams Road Packer Operator Relationship Specialty Start Date End Date Skye Hernandez [address] [place] [address] PCP - General 08/11/18 01/02/22 Kimi Deleon MD [address] [place] [phone] 05/16/20 Hannah Batres NP [address] [place] [address] 05/16/20 documented as of this encounter
--- OUTSIDE RECORDS SUMMARY | 2024-04-19 08:11 | XMS_ITS | Encounter Summary ---
Author Organization [facility] Address [address] [place] [address] Care Team Providers Care Director Of Digital Platforms Name Role Phone BentleyrenettaSkye Faiza Primary Care Provider Kimi Deleon MD Unavailable [phone] Hannah Batres NP Unavailable [phone] Reason for Visit * Reason Comments Macular Degeneration * Prior Authorization (Routine) - Closed Specialty Diagnoses / Procedures [facility]erred To Contact Diagnoses Exudative age-related macular degeneration of both eyes with active choroidal neovascularization ([facility]) Procedures NV INJECT INTRAVITREAL PHARMCOLOGIC NV AFLIBERCEPT INJECTION NV BEVACIZUMAB INJECTION Marcial Magaña MD Phone: tel: fax: Marcial Magaña MD Phone: tel: fax: Referral ID Status Reason Start Date Expiration Date Visits Re quested Visits Authorized [id number] Closed 04/19/2021 04/19/2022 13 13 Encounter Details Date Type Department Care Team (Late st Contact Info) Description 04/19/2021 10:15 EST Office Visit [facility] Ophthalmology - [facility] [address] [place] [address] Marcial Magaña MD [address] [facility], [facility] 5 [place] [address] Social History Tobacco Use Types [...] Progress Notes * Marcial Magaña MD - 04/19/2021 1015 EST Chief Complaint Patient presents with ??? Macular Degeneration Comments F/u on Wet AMD of both eyes s/p Eylea 03/08/21. HPI Location: Both eyes Pain: 0 - No pain Quality: Blurry Severity: Moderate Duration: Years Timing: Constant Lasts: Continuous Context: F/u on Wet AMD of both eyes s/p Eylea 03/08/21. Modifying factors: S/P Eylea right (01-25-21) left (12-21-20) Associated Signs & Symptoms: VA stable per pt. No new F and F. No pain. Persistent floater in right eye since last injection. Visual Fluctuations: None Attestation: Base Eye Exam Visual Acuity (Snellen - Linear) Right Left Dist sc 20/25 -2 20/25 +2/-1 Tonometry (Applanation, 10:37) Right Left Pressure 13 13 Pupils Pupils APD Right PERRL - Left PERRL - Neuro/Psych Oriented x3: Yes Mood/Affect: Normal Dilation Right eye: Tropicamide 1% @ 10:37 Slit Lamp and Fundus Exam Slit Lamp Exam Right Left Anterior Chamber quiet quiet Refraction Wearing Rx Sphere Cylinder Coalgate Right +4.00 -0.75 040 Left +3.50 -0.50 125 Please refer to large retinal drawing. IMAGING: OCT, Retina - OU - Both Eyes Right Eye Quality was good. Scan locations included subfoveal. Progression has been stable. Findings include pigment epithelial detachment (No fluid). Left Eye Quality was good. Scan locations included subfoveal. Progression has been stable. Findings include pigment epithelial detachment (No fluid ). Intravitreal Injection, Pharmacologic Agent - OD - Right Eye Time Out 04/19/2021. 11:42. Confirmed correct patient, procedure, site, and patient consented. Anesthesia Topical anesthesia was used. Anesthetic medications included Proparacaine 0.5%, Tetracaine 0.5%. Procedure Preparation included 5% betadine to ocular surface. A supplied needle was used. Injection: 2 mg aflibercept (EYLEA) intravitreal syringe [facility]: 39645-885-01, Lot: [id number], Expiration date: 07/21/2021 Route: intravitreal, Site: Right Eye Post-op Post injection exam found visual acuity of at least counting fingers. The patient tolerated the procedure well. There were no complications. The patient received written and verbal post procedure care education. Post injection medications were not given. DIAGNOSES: 1. Exudative age-related macular degeneration of both eyes with active choroidal neovascularization([facility]) ([facility]) OCT, [...] 12 weeks S/P Eylea left eye. Offer Eylea??right eye??today and??continue every 6 weeks??for right eye and 12 weeks for the [...] 11:00 EDT Office Visit [facility] Ophthalmology - [address] [phone] Marcial Magaña MD [address] [place] [address], [facility] 5 [place] [phone] 07/25/2024 11:00 EDT Phlebotomy Only [facility] Hematology & Oncology [address] [phone] Blood Doctor, [facility] Hem Onc 07/25/2024 11:45 EDT Office Visit [facility] Hematology & Oncology [address] [phone] Abebe Ralph MD [address] [place] [address], [facility] 2 [place] [phone] 07/25/2024 12:30 EDT Appointment [facility] Hematology & Oncology [address] [phone] 01/03/2025 16:20 EDT Appointment [facility] Breast Imaging Mammography - [address] [address] documented as of this encounter Procedures Procedure Name Priority Date/Time Associated Diagnosis Comments INTRAVITREAL INJECTION, PHARMACOLOGIC AGENT - OD - RIGHT EYE Routine 04/19/2021 12:03 EST Exudative age-related macular degeneration of both eyes with active choroidal neovascularization (HCC-CMS) ([facility]) OCT, RETINA - OU - BOTH EYES Routine 04/19/2021 11:35 EST Exudative age-related macular degeneration of both eyes with active choroidal neovascularization (HCC-CMS) ([facility]) documented in this encounter Results * INTRAVITREAL INJECTION, PHARMACOLOGIC AGENT - OD - RIGHT EYE (04/19/2021 12:03 EST) Narrative [facility] POINT OF CARE - 04/19/2021 12:12 EST Time Out 04/19/2021. 11:42. Confirmed correct patient, procedure, site, and patient consented. Anesthesia Topical anesthesia was used. Anesthetic medications included Proparacaine 0.5%, Tetracaine 0.5%. Procedure Preparation included 5% betadine to ocular surface. A supplied needle was used. Injection: 2 mg aflibercept (EYLEA) intravitreal syringe ??[facility]: 44325-122-46, Lot: [id number], Expiration date: 07/21/2021 ??Route: intravitreal, Site: Right Eye Post-op Post injection exam found visual acuity of at least counting fingers. The patient tolerated the procedure well. There were no complications. The patient received written and verbal post procedure care education. Post injection medications were not given. us Marcial Magaña MD OPHTH CLINIC PROCEDURES Final Re sult [facility] POINT OF CARE * OCT, RETINA - OU - BOTH EYES (04/19/2021 11:35 EST) Narrative [facility] POINT OF CARE - 04/19/2021 12:12 EST Right Eye Quality was good. Scan locations included subfoveal. Progression has been stable. Findings include pigment epithelial detachment (No fluid). Left Eye Quality was good. Scan locations included subfoveal. Progression has been stable. Findings include pigment epithelial detachment (No fluid ). Marcial Magaña MD OPHTH TOMOGRAPHY Final Result [...] 2 mg 2 mg, intravitreal, Starting on Thu04/19/21 at 1142, Until Thu04/19/21 at 1413, RoutineIndications:Exudative age-related macular degeneration of both eyes with active choroidal neovascularization (HCC-CMS) Given 04/19/2021 11:42 EST 2 mg Right E ye documented in this encounter Orders Medications Ordered That Trevor ht Not Have Been Administered Count Last Ordered Date First Ordered Date aflibercept (EYLEA) intravit real syringe 2 mg 1 04/19/2021 documented in this encounter Eye Exam Visual Acuity (Snellen - Linear) Right eye Left eye Dist sc 20/25 -2 20/25 +2/-1 Tonometry (Applanation, 10:37) Right eye Left eye Pressure 13 13 Pupils Pupils APD Right eye PERRL - Left eye PERRL - Neuro/Psych Oriented x3: Yes Mood/Affect: Normal Dilation Right eye: Tropicamide 1% @ 10:37 Slit Lamp Exam Right eye Left eye Anterior Chamber quiet quiet Wearing Rx Sphere Cylinder Coalgate Right eye +4.00 -0.75 040 Left eye +3.50 -0.50 125 Care Teams Director Of Digital Platforms Relationship Specialty Start Date End Date Skye Hernandez [address] [place] [address] PCP - General 08/11/18 01/02/22 Kimi Deleon MD [address] [place] [address] 05/16/20 Hannah Batres NP [address] [place] [address] 05/16/20 documented as of this encounter
--- OUTSIDE RECORDS SUMMARY | 2024-04-19 08:11 | XMS_ITS | Encounter Summary ---
Author Organization [facility] Address [address] [place] [address] Care Team Providers Care Proofer Name Role Phone Skye Hernandez Primary Care Provider [phone] Kimi Deleon MD Unavailable [phone] Hannah Batres NP Unavailable [phone] Reason for Referral * Radiology Services (Routine/Next Available) - Closed Specialty Diagnoses / Procedures Referred By [facility] Referred To Contact Diagnoses Malignant neoplasm of upper-outer quadrant of right breast in female, estrogen receptor positive (HCC-CMS) Procedures MA BREAST SCREENING JOE BILATERAL Abebe Ralph MD Phone: tel: fax: [facility] Referral ID Status Reason Start Date Expiration Date Visits Re quested Visits Authorized [id number] Closed 03/13/2021 1 1 Reason for Visit * Reason Comments Follow-up Encounter Details Date Type Department Care Team (Late st Contact Info) Description 03/13/2021 10:15 EST Office Visit [facility] Cancer Center Hematology & Oncology - [address] [address] Abebe Ralph MD 111 [facility], [facility], Level 2 [place] [phone] Malignant neoplasm of upper-outer quadrant of right [...] Sign Reading Time Taken Comments Blood Pressure 143/74 03/13/2021 1003 EST Pulse 56 03/13/2021 1003 EST Temperature 36.2 ??C (97.1 ??F) 03/13/2021 1003 EST Respiratory Rate 16 03/13/2021 1003 EST Oxygen Saturation 99% 03/13/2021 1003 EST Inhaled Oxygen Concentration - - Weight 68.5 kg (151 lb 1.6 oz) 03/13/[address] Height 163.5 cm (5' 4.37) 03/13/2021 1003 EST Body Mass Index 25.64 03/13/2021 1003 EST documented in this encounter Functional Status [...] Progress Notes * Abebe Ralph MD - 03/13/2021 1015 EST Subjective Jeffery Garvey is a 70 y.o. [...] cm cancer, 0/3 sentinel nodes, grade 2, ER/IA+, HER-2 negative (IHC = 0). LVI negative. [...] percept. HPI: Jeffery Garvey returns in follow-up, continue on adjuvant Femara. She overall continues doing well. Of note her vasomotor symptoms are currently continuing to be very well controlled on her Celexa. She continues to have no hot flashes that awaken her at night, this is been a huge problem priorto initiation of her Celexa. She is still generally having 2-3 hot flashes/day, however these are very short-lived and stable and she feels tolerable subjectively. She has had no signs or symptoms suggestive of recurrent disease. She is had no significant breast complaints. She did suffer an injuryto her right knee this past summer while gardening, she has been seen by an orthopedist who feels she may have suffered a torn meniscus, she has a MRI scheduled in March for further evaluation. ROS Except as noted above in the HPI, Jeffery Garveys full remaining 10 point review of systems, including constitutional, cardiac, pulmonary, GI, /WATERPROOFING MIXER, neurologic, musculoskeletal, HEENT, psychiatric, and endocrine, and [...] skin every 6 months. (started 12/16/18 at [facility]) ??? Fish Oil-[place]-3 Fatty Acids (FISH OIL) 360-1,200 mg capsule [...] Take 1 caplet by mouth daily. Vitals: 03/13/21 1003 BP: (!) 143/74 Pulse: 56 Resp: 16 Temp: 36.2 ??C (97.1 ??F) TempSrc: Temporal SpO2: 99% Weight: 68.5 kg (151 lb 1.6 oz) Height: 163.5 cm (64.37) Wt Readings from Last 3 Encounters: 03/13/21 68.5 kg (151 lb 1.6 oz) 02/08/21 68.2 kg (150 lb 4.8 oz) 09/03/20 69.5 kg (153 lb 3.2 oz) Physical Exam Objective: Jeffery Garvey is [...] edema. Lab Results Component Value Date WBC 5.06 03/12/2021 HGB 12.7 03/12/2021 HCT 38.2 03/12/2021 MCV 95 03/12/2021 PLT 246 03/12/2021 NEUTROABS 2.50 03/12/2021 CALCIUM 9.4 03/12/2021 CO2 28 03/12/2021 AST 22 03/12/2021 ALT 21 03/12/2021 TBIL <0.5 03/12/2021 CREATININE 0.71 03/12/2021 CALCCA 9.3 09/03/2020 ANIONGAP 5 (L) 03/12/2021 TP 7.0 03/12/2021 K 4.5 03/12/2021 ALKPHOS 43 03/12/2021 LABALBU 4.3 03/12/2021 BUN 20 03/12/2021 CALCGFR 85 03/12/2021 CL 105 03/12/2021 SERGLU 100 03/12/2021 NA 138 03/12/2021 Imaging Assessment & Plan Jeffery Garvey returns in follow-up, continue on adjuvant Femara, as above. She continues to be doing overall quite well. As noted above she did unfortunately have an injury to her knee this past summer, and has been seen by a local orthopedist who feels she quite potentially has a torn meniscus. The MRI is scheduled as above. She is overall doing well in regards to her breast cancer, labs are as above and as per her flowsheet and remain unremarkable. She is doing very well with her current dose of Celexa in regard to her vasomotor symptoms that have been pretty severe. We will proceed with ongoing treatment with Prolia, follow-up will be scheduled about 6 months at which time she willbe due for routine follow-up annual screening mammography which we will schedule here at [facility] as well. I spent a total of 45 minutes on the date of this encounter [...] Description 07/21/2024 11:00 EDT Office Visit [facility] Ophthalmology - [address] [phone] Marcial Magaña MD 111 [facility], Level 5 [place] [phone] 07/25/2024 11:00 EDT Phlebotomy Only [facility] Hematology & Oncology - [address] [phone] Blood Doctor, [facility] Hem Onc 07/25/2024 11:45 EDT Office Visit [facility] Hematology & Oncology [address] [phone] Abebe Ralph MD [address] [place] [address], [facility] 2 [place] [phone] 07/25/2024 12:30 EDT Appointment [facility] Hematology & Oncology [address] [phone] 01/03/2025 16:20 EDT Appointment [facility] Breast Imaging Mammography - [address] [phone] documented as of this encounter Results * [...] in female, estrogen receptor positive (HCC-CMS)- Primary Malignant neoplasm of upper-outer quadrant of right breast in female, estrogen receptor positive (HCC-CMS) Encounter for screening mammogram for malignant neoplasm of breast Other screening mammogram documented in this encounter Care Teams Proofer Relationship Specialty Start Date End Date Skye Hernandez [address] [place] [address] PCP - General 08/11/18 01/02/22 Kimi Deleon MD [address] [place] [address] 05/16/20 Hannah Batres NP [address] [place] [address] 05/16/20 documented as of this encounter
--- OUTSIDE RECORDS SUMMARY | 2024-04-19 08:11 | XMS_ITS | Encounter Summary ---
Author Organization [facility] Address [address] [place] [address] Care Team Providers Care Coal And Ash Supervisor Name Role Phone BentleyrenettaSkye Faiza Primary Care Provider Kimi Deleon MD Unavailable [phone] Hannah Batres NP Unavailable [phone] Reason for Visit * Reason Onset Date Comments Appointment Related 01/29/2021 Encounter Details Date Type Department Care Team (Late st Contact Info) Description 01/29/2021 Telephone [id number] [place] [address] Marcial Magaña MD 111 [facility], [facility] 5 [place] [address] Appointment Related Social History Tobacco [...] * Telephone Encounter - Shannan Salas - 01/29/2021 0932 EST Lmom for pt to call back and schedule next appt. Reminder has been placed documented in this encounter Plan of Treatment Upcoming Encounters Date Type Department Care Team (Late st Contact Info) Description 07/21/2024 11:00 EDT Office Visit [facility] Ophthalmology [address] [phone] Marcial Magaña MD [address] [place] [address] 5 [place] [phone] 07/25/2024 11:00 EDT Phlebotomy Only [facility] Hematology & Oncology [address] [phone] Blood Doctor, [facility] Hem Onc 07/25/2024 11:45 EDT Office Visit [facility] Hematology & Oncology [address] [phone] Abebe Ralph MD [address] [place] [address], Level 2 [place] [address] 07/25/2024 12:30 EDT Appointment [facility] Cancer Center Hematology & Oncology - [address] [address] 01/03/2025 16:20 EDT Appointment [facility] Breast Imaging Mammography - [address] [phone] documented as of this encounter Visit Diagnoses Not on filedocumented in this encounter Care Teams Coal And Ash Supervisor Relationship Specialty Start Date End Date Skye Hernandez [address] [place] [address] PCP - General 08/11/18 01/02/22 Kimi Deleon MD [address] [place] [address] 05/16/20 Hannah Batres NP [address] [place] [address] 05/16/20 documented as of this encounter
--- OUTSIDE RECORDS SUMMARY | 2024-04-19 08:11 | XMS_ITS | Encounter Summary ---
Author Organization [facility] Address [address] [place] [address] Care Team Providers Care Real Estate Services Administrator Name Role Phone Skye Hernandez Primary Care Provider [phone] Kimi Deleon MD Unavailable [phone] Hannah Batres NP Unavailable [phone] Reason for Visit * Reason Onset Date Comments Results 03/21/2021 Encounter Details Date Type Department Care Team (Late st Contact Info) Description 03/21/2021 Telephone [facility] Cancer Center Hematology & Oncology - [address] [address] Abebe Ralph MD 111 [facility], [facility] 2 [place] [address] Results Social History Tobacco Use [...] * Telephone Encounter - Kindra Owen - 03/21/2021 1450 EST LABS ENTERED FROM [facility] . Kindra Owen 03/21/2021 14:50 documented in this encounter Plan of Treatment Upcoming Encounters Date Type Department Care Team (Late st Contact Info) Description 07/21/2024 11:00 EDT Office Visit [facility] Ophthalmology - [address] [phone] Marcial Magaña MD [address] [place] [address], Level 5 [place] [phone] 07/25/2024 11:00 EDT Phlebotomy Only [facility] Hematology & Oncology [address] [phone] Blood Doctor, [facility] Hem Onc 07/25/2024 11:45 EDT Office Visit [facility] Hematology & Oncology [address] [phone] Abebe Ralph MD [address] [place] [address], Level [address] [place] [address] 07/25/2024 12:30 EDT Appointment [facility] Cancer Center Hematology & Oncology - [address] [phone] 01/03/2025 16:20 EDT Appointment [facility] Breast Imaging Mammography - [address] [phone] documented as of this encounter Procedures Procedure Name Priority Date/Time Associated Diagnosis Comments LIPID PROFILE (INCLUDES CHOLESTEROL, TRIGLYCERIDES, HDL, LDL) Routine 12/28/2020 COMPREHENSIVE METABOLIC PANEL (ONCOLOGY USE ONLY-INC MG) Routine 12/27/2020 documented in this encounter Results * (ABNORMAL) LIPID PROFILE (INCLUDES CHOLESTEROL, TRIGLYCERIDES, HDL, LDL) (12/28/2020) Cholesterol, External 211(A) <=200 EXTERNAL LAB Triglycerides, External 86 EXTERNAL LAB HDL, External 53 EXTERNAL LAB LDL, External 141(A) <=100 EXTERNAL LAB Chol/HDL Ratio, External EXTERNAL LAB Fasting?, External EXTERNAL LAB Blood VENOUS BLOOD / Unknown 12/28/2020 us Historical Provider MD CHEMISTRY & BLOOD GAS ORD ERABLES Final Result EXTERNAL LAB * COMPREHENSIVE METABOLIC PANEL (ONCOLOGY USE ONLY-INC MG) (12/27/2020) Calcium, External 9.0 EXTERNAL LAB CO2, External 30.2 EXTERNAL LAB AST, External EXTERNAL LAB ALT, External EXTERNAL LAB Bilirubin, Total, External EXTERNAL LAB Creatinine, External 0.8 EXTERNAL LAB Calculated Calcium, External EXTERNAL LAB Anion Gap, External EXTERNAL LAB Total Protein, External EXTERNAL LAB Potassium, External 4.4 EXTERNAL LAB Total Alkaline Phosphatase, External EXTERNAL LAB Albumin, External EXTERNAL LAB BUN, External 18 EXTERNAL LAB GFR, Calculated, External 60 EXTERNAL LAB Fasting?, External EXTERNAL LAB Chloride, External 106 EXTERNAL LAB Glucose, Serum, External 96 EXTERNAL LAB Sodium, External 141 EXTERNAL LAB Magnesium, External EXTERNAL LAB Blood VENOUS BLOOD / Unknown 12/27/2020 us Historical Provider CHEMISTRY & BLOOD GAS ORD ERABLES Final Result EXTERNAL LAB documented in this encounter Visit Diagnoses Not on filedocumented in this encounter Care Teams Real Estate Services Administrator Relationship Specialty Start Date End Date Skye Hernandez [address] [place] [address] PCP - General 08/11/18 01/02/22 Kimi Deleon MD [address] [place] [address] 05/16/20 Hannah Batres NP [address] [place] [address] 05/16/20 documented as of this encounter
--- OUTSIDE RECORDS SUMMARY | 2024-04-19 08:12 | XMS_ITS | Encounter Summary ---
Author Organization [facility] Address [address] [place] [address] Care Team Providers Care Pharmacy Technician Infusion Name Role Phone Skye Hernandez Primary Care Provider [phone] Kimi Deleon MD Unavailable [phone] Hannah Batres NP Unavailable [phone] Reason for Visit * Reason Onset Date Comments Other 08/01/2020 Health Coaching ([facility]) Encounter Details Date Type Department Care Team (Late st Contact Info) Description 08/01/2020 Telephone [facility] Cancer Center Hematology & Oncology - [address] [address] Ivonne Killian MD PhD Other (Health Coaching ([facility])) Social History Tobacco Use Types Packs/Day Years Used Date Smoking Tobacco: Never Smokeless Tobacco: Never Alcohol Use Standard Drinks/Week Comments Yes 7 (1 standard drink = 0.6 oz pur e alcohol) AUDIT-C Answer Date Recorded Frequency of Alcohol Consumption 4 or more times a week 09/09/2018 Average Number of Drinks 1 or 2 019 Frequency of Binge Drinking Never 08/22 Interpersonal Safety Answer Date Record ed Physically [...] have Coronavirus / COVID-19? No / Unsure 07/06/2020 11:55 EDT documented as of this encounter Functional [...] encounter Miscellaneous Notes * Telephone Encounter - Susannah Le - 08/01/2020 7694 EDT Note Met with Ms. Garvey by Jonatan for a wellness consult prior to joining the Transition to Wellness Shared Medical Visit program for cancer survivors. We reviewed details about the group program anddiscussed Jeffery???s Wheel of Health Self-Assessment. Jeffery reports that exercise, nutrition, and relationships are areas of strength for her right now.She is very active, walking several miles per day, hiking, biking, cross-country skiing, and gardening. She has always enjoyed exercise and finds that it gives her energy and improves her attitude. Jeffery and her grow most of their own food, including meat. She likes to cook and avoids proce ssed foods. She does not drink alcohol. Jeffery has a few close friendships as well as a strong relationship with her . Jeffery identified poor sleep, medication side effects, and having to accept that she can???t do certain activities anymore as current challenges. She feels that sleep is the most important area to work on right now because it affects everything else (e.g., her mood, motivation, energy). She wakes up in the night due to hot flashes and then can???t fall back to sleep because her mind starts racing. Some nights she only gets 2-3 hours of sleep. She is motivated to change this because she ???feelslike shit.?? Jeffery recently changed medications, which she hopes will improve her sleep quality. She already follows sleep hygiene recommendations in terms of her sleep environment. She sometimes gets up and reads when she can???t sleep, but not consistently. During our meeting, Jeffery set goals to go to bed and wake up at the same time every day (10pm-6am), and when she wakes up in the night for more than 20 minutes, to go downstairs and read until she is sleepy. On a 1-10 scale, Jeffery collectively rated her confidence she can achieve these goals as a 7. She feels that having concrete goals is helpful. Plan 1. Wellness goal: Consistent sleep and wake times (10pm-6am), and get up and read if she is awake for more than 20 minutes. 2. Jeffery will join the Transition to Wellness Shared Medical Visit program for cancer survivors beginning on 08/07/20. I am available if she wants additional one-on-one health coaching outside of thegroup meetings. Susannah Le 08/01/2020 14:45 documented in this encounter Plan of Treatment Upcoming Encounters Date Type Department Care Team (Late st Contact Info) Description 07/21/2024 11:00 EDT Office Visit [facility] Ophthalmology [address] [phone] Marcial Magaña MD [address] [place] [address] 5 [place] [phone] 07/25/2024 11:00 EDT Phlebotomy Only [facility] Hematology & Oncology [address] [phone] Blood Doctor, [facility] Hem Onc 07/25/2024 11:45 EDT Office Visit [facility] Hematology & Oncology [address] [phone] Abebe Ralph MD [address] [place] [address], [facility] 2 [place] [address] 07/25/2024 12:30 EDT Appointment [facility] Cancer Center Hematology & Oncology - [address] [phone] 01/03/2025 16:20 EDT Appointment [facility] Breast Imaging Mammography - [address] [phone] documented as of this encounter Visit Diagnoses Not on filedocumented in this encounter Care Teams Pharmacy Technician Infusion Relationship Specialty Start Date End Date Skye Hernandez [address] [place] [address] PCP - General 08/11/18 01/02/22 Kimi Deleon MD [address] [place] [address] 05/16/20 Hannah Batres GLORY HOLE TENDER [address] [place] [address] 05/16/20 documented as of this encounter
--- OUTSIDE RECORDS SUMMARY | 2024-04-19 08:12 | XMS_ITS | Encounter Summary ---
Author Organization [facility] Address [address] [place] [address] Care Team Providers Care Water Treatment Plant Mechanic Name Role Phone DavidSkye Faiza Primary Care Provider [phone] Kimi Deleon MD Unavailable [phone] Hannah Batres NP Unavailable [phone] Millie Hilton MD Primary Care Provider [phone] Encounter Details Date Type Department Care Team (Late st Contact Info) Description 06/12/2020 Lab Requisition [facility] Pathology & Laboratory Medicine - [address] [address] Outr Resulting Lab, Provider Social History Tobacco Use Types Packs/Day Years [...] EDT Office Visit [facility] Ophthalmology - [address] [phone] Marcial Magaña MD [address] [place] [address] 5 [place] [phone] 07/25/2024 11:00 EDT Phlebotomy Only [facility] Hematology & Oncology - [address] 210491 Blood Doctor, [facility] Hem Onc 07/25/2024 11:45 EDT Office Visit [facility] Hematology & Oncology [address] [phone] Abebe Ralph MD [address] [place] [address], Level [address] [place] [phone] 07/25/2024 12:30 EDT Appointment [facility] Hematology & Oncology [address] [phone] 01/03/2025 16:20 EDT Appointment [facility] Breast Imaging Mammography - [address] [address] documented as of this encounter Visit Diagnoses Not on filedocumented in this encounter Care Teams Water Treatment Plant Mechanic Relationship Specialty Start Date End Date Skye Hernandez [address] [place] [address] PCP - General 08/11/18 01/02/22 Millie Hilton MD [address] [place] [address] PCP - General 01/03/22 Kimi Deleon MD [address] [place] [address] 05/16/20 Hannah Batres NP [address] [place] [address] 05/16/20 documented as of this encounter
--- OUTSIDE RECORDS SUMMARY | 2024-04-19 08:12 | XMS_ITS | Encounter Summary ---
Author Organization [facility] Address [address] [place] [address] Care Team Providers Care Proposal Manager Writer Name Role Phone Skye Hernandez Primary Care Provider Kimi Deleon MD Unavailable Hannah Batres NP Unavailable [phone] Reason for Visit * Reason Comments New Patient Visit Encounter Details Date Type Department Care Team (Late st Contact Info) Description 05/16/2020 14:15 EST Office Visit [facility] Cancer Center Hematology & Oncology - [address] [address] Abebe Ralph MD [address] [facility], [address] [place] [address] Malignant neoplasm of upper-outer quadrant of right breast in female, estrogen receptor positive (HCC-CMS) (Primary Dx); Osteoporosis without current pathological fracture, unspecified osteoporosis type Social History Tobacco Use Types Packs/Day [...] Sign Reading Time Taken Comments Blood Pressure 154/72 05/16/2020 1406 EST Pulse 51 05/16/2020 1406 EST Temperature 35.4 ??C (95.7 ??F) 05/16/2020 1406 EST Respiratory Rate 16 05/16/2020 1406 EST Oxygen Saturation 99% 05/16/2020 1406 EST Inhaled Oxygen Concentration - - Weight 69.1 kg (152 lb 4.8 oz) 05/16/[address] Height 163.5 cm (5' 4.37) 05/16/2020 1406 EST Body Mass Index 25.84 05/16/2020 1406 EST documented in this encounter Functional Status [...] End Date letrozole (FEMARA) 2.5 mg tablet Take 1 Tab by mouth daily. 90 Tab 4 05/16/2020 07/24/2021 documented in this encounter Progress Notes * Abebe Ralph MD - 05/16/2020 1415 EST 05/16/2020 CONSULTATION 05/16/2020 REFERRING PROVIDER:No ref. provider found PATIENT: Jeffery Garvey REFERRING PROVIDER: No ref. provider found CHIEF COMPLAINT New Patient Visit HISTORY OF PRESENT ILLNESS Jeffery Garvey is a very pleasant 69 y.o. female who presents with a diagnosis of early stage breast cancer, with pathology as described below in detail, referred by Dr. Jenkins for consultation and treatment recommendations. She was diagnosed with early stage breast cancer, 10/08. She ultimately was found to have a 1.8 cm cancer, ER/WI+, sentinel node negative, HER-2 negative, grade 2. She underwent WL E/XRT, I should note the margins of resection were negative, reportedly there was no evidence of LVI as well. Additionally she had Oncotype testing done, recurrence score equals 16. She underwent breast XRT, 12/09, and was begun on adjuvant tamoxifen 12/09. She presents has been having moderately substantial ongoing vasomotor symptoms. Currently what she describes as probably about 3-5 hot flashes daily, in about 2-3/night that awaken her quite regularly. Her sense is this is been fairly constant since initiation of her adjuvant tamoxifen. She has been seeing a quality assurance supervisor final and was begun on a supplement called hersperidin, which is not really certain has been of much benefit. She addit ionally currently describes what she is characterizes as a sense of fatigue or tiredness in both ofher lower extremities. Reviewing her past records at times she has complained of some aching in herlegs but she does not feel this is the case at present. This been fairly chronic. She did note as well she relates she has had a longstanding history of somewhat poor sleep patterns even prior to initiation of her tamoxifen. She does note some at times chronic mild fatigue. Additionally she was diagnosed with osteoporosis a number of years ago and is undergoing treatments as noted below, she has now been on Prolia since 12/09. Past medical history: 1. Osteoporosis. A. Prior therapy with alendronate >> poor tolerance. B. 2-year course of Forteo, completed 09/08. C. Prolia, 12/09. 2. Macular degeneration, wet. A. Ongoing treatment >> a flu percept. 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 She has no history of postmenopausal ERT, was on OCPs for less than 10 years as a young adult. Family history: Mother was diagnosed with breast cancer, approximately age 75. Sister diagnosed with breast cancer age 43, from metastatic breast cancer subsequently. No remaining known family history of breast cancer, nor ovarian cancer, the remainder the family history is noncontributory. She did undergo evaluation in the FCP program here at [facility] and underwent [facility] breast and ovarian gene panel, unremarkable, 12/09. Social history: She is , she is currently retired. She has no history of cigarette or tobacco use, or any history of significant EtOH consumption. She remains quite physically active. HPI PROBLEM LIST Patient Active Problem List Diagnosis ??? Personal history of other malignant neoplasm of skin ??? Seborrheic keratoses ??? Osteoporosis without current pathological fracture ??? Estrogen receptor positive status (ER+) ??? Family history of breast cancer ??? Malignant neoplasm of upper-outer quadrant of female breast (HCC-CMS) ??? Intermediate stage nonexudative age-related macular degeneration of left eye ??? Exudative 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 (HCC-CMS) PAST HISTORY Past Medical History: Diagnosis Date ??? Basal cell carcinoma 07/09/2007 Left lower eyelid ??? Dermatologic disease basal cell on eyelid removed Past Surgical History: Procedure Laterality Date ??? JOINT REPLACEMENT shoulder repair 2012 ??? MOHS SURGERY 09/09/2007 Left lower eyelid BCC Family History Problem Relation Age of Onset ??? Arthritis Mother ??? Cancer Mother ??? Hypertension Mother ??? Cancer Father ??? Cancer Sister ??? Macular Degeneration Sister ??? Macular Degeneration Brother ??? Macular Degeneration Maternal Uncle Social History Socioeconomic History ??? Marital status: Spouse name: None ??? Number of children: None ??? Years of education: None ??? Highest education level: None Occupational History ??? None Social Needs ??? Financial resource strain: None ??? Food insecurity Worry: None Inability: None ??? Transportation needs Medical: None Non-medical: None Tobacco Use ??? Smoking status: Never Smoker ??? Smokeless tobacco: Never Used Substance and Sexual Activity ??? Alcohol use: Yes Alcohol/week: 7.0 - 14.0 standard drinks Types: 7 - 14 Glasses of wine per week Frequency: 4 or more times a week Drinks per session: 1 or 2 Binge frequency: Never ??? Drug use: No ??? Sexual activity: None Lifestyle ??? Physical activity Days per week: None Minutes per session: None ??? Stress: None Relationships ??? Social connections Talks on phone: None Gets together: None Attends rastafarian service: None Active member of club or organization: None Attends meetings of clubs or organizations: None Relationship status: None ??? Intimate partner violence Fear of current or ex partner: None Emotionally abused: None Physically abused: None Forced sexual activity: None Other Topics Concern ??? None Social History Narrative ??? None MEDICATIONS Current Outpatient Medications Medication Sig Dispense Refill ??? acetaminophen (TYLENOL) 325 mg tablet Take by mouth as needed for Pain. ??? Calcium Carbonate (TUMS ULTRA) 400 mg calcium (1,000 mg) tablet,chewable Take by mouth as needed. Not regularly ??? cholecalciferol, Vitamin D3, 1,000 unit tablet Take 4,000 Units by mouth daily. ??? denosumab 60 mg/mL syringe syringe Inject 60 mg into the skin every 6 months. (started 12/16/[address] [facility]) ??? Fish Oil-Hawthorne-3 Fatty Acids (FISH OIL) 360-1,200 mg capsule 1360mg, 2 caps by mouth daily ??? GLYCERIN MM by mucous membrane route. ??? Hesperidin-Diosmin 250-650 mg tablet Take by mouth. ??? magnesium hydroxide (MILK OF MAGNESIA) 400 mg/5 mL suspension Take 30 mL by mouth daily as needed. ??? multivitamin (THERAGRAN) per tablet 1 tab(s) orally once a day ??? Multivitamins with Minerals tablet tablet Take 1 Tab by mouth daily. (contains calcium 25 mg, vitamin D 1000 iu) ??? [id number] (MACULAR HEALTH FORMULA) 5-1-7.5 mg capsule 1 cap(s) orally oncea day ??? OMEGA-3S/DHA/EPA/FISH OIL (OMEGA 3 ORAL) Take 1,480 mg by mouth daily. (contains vitamin D 1000iu) ??? tamoxifen (NOLVADEX) 20 mg tablet Take 1 Tab by mouth daily for 90 days. 90 Tab 3 ??? UNABLE TO FIND as needed. Med Name: Quick Immune Response No current facility-administered medications for this visit. Facility-Administered Medications Ordered in Other Visits Medication Dose Route Frequency Provider Last Rate Last Admin ??? [] aflibercept (EYLEA) intravitreal syringe 2 mg 2 mg intravitreal Marcial Magaña MD 2 mgat 04/27/20 1245 ALLERGIES Allergies Allergen Reactions ??? Animal Dander Other reaction(s): Unknown ??? Cat Dander Other reaction(s): Unknown ??? Cats Horses ??? Melatonin Rash REVIEW OF SYSTEMS Review of Systems Except as noted above in the HPI, Jeffery Rivers full remaining 10 point review of systems, including constitutional, cardiac, pulmonary, GI, /MANUFACTURING PROJECT ENGINEER, neurologic, musculoskeletal, HEENT, psychiatric, and endocrine, and all remaining, is otherwise fully unremarkable. VITALS Vitals: 05/16/20 1406 BP: (!) 154/72 Pulse: 51 Resp: 16 Temp: (!) 35.4 ??C (95.7 ??F) TempSrc: Tympanic SpO2: 99% Weight: 69.1 kg (152 lb 4.8 oz) Height: 163.5 cm (64.37) ECOG Performance Status: - PHYSICAL EXAM Physical Exam Physical Exam Constitutional: alert and oriented to [...] respiratory distress. No wheezes, no rhoncae. Breasts: S/B WL E/XRT right breast, no other significant findings at present. Cardiovascular: Normal S1, [...] No focalneurologic deficits. Cerebellar function is intact. DTR's symmetric and unremarkable. Skin: Intact, warm and dry. No rash, skin breakdown noted. Psychiatric: Judgment and thought content normal. Extr's: Without significant cyanosis, clubbing, or edema. DIAGNOSIS There were no encounter diagnoses. STAGING Cancer Staging No matching staging information was found for the patient. ASSESSMENT/PLAN Problem list: 1. 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 A. 1.8 cm cancer, sentinel node negative, grade 2, ER/WI+, HER-2 negative (IHC equals 0). LVI negative. Onco-DX equals 16. B. S/B WL is/XRT, 12/09. C. Adjuvant tamoxifen, 12/09. 1. Osteoporosis. A. Prior therapy with alendronate >> poor tolerance. B. 2-year course of Forteo, completed 09/08. C. Prolia, 12/09. 2. Macular degeneration, wet. A. Ongoing treatment >> a flu percept. Jeffery Garvey is in summary a 69-year-old woman with a diagnosis of breast cancer with pathology as described above in detail. I would recommend that we obtain her outside pathology reports which were not available at time. However from the records I have I spoke with Jeffery about several issues. Firstly she is having fairly severe vasomotor symptoms at present awakening 2-3 times nightly probably due to her tamoxifen. She has not had a trial of any pharmacologic treatment to alleviate this. Additionally in regards to her breast cancer with her conventional pathology and Oncotype score and family would recommend treatment with an aromatase inhibitor. Interestingly Jeffery had done quite a bit of reading about endocrine therapy and breast cancer in general and had been concerned aboutthe impact of this on her bone health with her diagnosis of osteoporosis, which is certainly very reasonable question. Good phase 3 data has however demonstrated a quite dramatic amelioration of the impact of AI's on bone loss thus I think the likelihood of further significant worsening of her bonedensity is quite modest with an AI, with concurrent therapy with Prolia which she is already receiving. We reviewed this in some detail, the basis of this is that certainly the benefit of an AI's superior to that of tamoxifen and numerous phase 3 randomized trials at present, in the postmenopausal setting. And is current vasomotor symptoms however remain an issue. After discussing this in some detail today what we will do is she will discontinue her tamoxifen at present stay off of this for 4 weeks then proceed with a trial of Femara at that time. Be interesting to see if her hot flashes and sleep pattern improves. We will plan follow-up subsequent to this to review signs or symptoms and we discussed consideration of potentially proceeding with an SSRI or other therapies if the symptoms do persist. Finally in regards to her Prolia, she would like to continue with her care here now in the breast care center at [facility], we can proceed with ongoing Prolia here, she is due for her next treatment in July. She is scheduled to see Dr. San and undergo routine annual screening mammography she believes around July or August as well. There are no diagnoses linked to this encounter. Abebe Ralph MD documented in this encounter Miscellaneous Notes * Addendum Note - Jaycob Hunt RN - 05/16/2020 1415 ESTAddended by: JAYCOB HUNT on: 06/15/2020 14:04 Modules accepted: Orders documented in this encounter Plan of Treatment Upcoming Encounters Date Type Department Care Team (Late st Contact Info) Description 07/21/2024 11:[address] [facility] Ophthalmology - [address] [id number] Marcial Magaña MD [address] [place] [address] [address] [place] [phone] 07/25/2024 11:00 EDT Phlebotomy Only [facility] Hematology & Oncology [address] [phone] Blood Doctor, [facility] Hem Onc 07/25/2024 11:45 EDT Office Visit [facility] Hematology & Oncology [address] [phone] Abebe Ralph MD [address] [place] [address], [address] [place] [address] 07/25/2024 12:30 EDT Appointment [facility] Cancer Center Hematology & Oncology - [facility] [address], [place] [address] 01/03/2025 16:20 EDT Appointment [facility] Breast Imaging Mammography - [address] [id number] documented as of this encounter Visit Diagnoses Diagnosis Malignant neoplasm of upper-outer quadrant of right breast in female, estrogen receptor positive ([facility])- Primary Osteoporosis without current pathological fracture, unspecified osteoporosis type Encounter for screening mammogram for malignant neoplasm of breast Other screening mammogram documented in this encounter Discontinued Medications Medication Sig Discontinue Reason Start Date End Da te magnesium hydroxide (MILK OF MAGNESIA) 400 mg/5 mL suspension Take 30 mL by mouth daily as needed. 06/15/2020 multivitamin (THERAGRAN) per tablet 1 tab(s) orally once a day Duplicate order 06/15/2020 OMEGA-3S/DHA/EPA/FISH OIL (OMEGA 3 ORAL) Take 1,480 mg by mouth daily. (contains vitamin D 1000 iu) Duplicate Therapy 06/15/2020 UNABLE TO FIND as needed. Med Name: Quick Immune Response Error 06/15/2020 multivitamin (NEPHROVITE) 0.8 mg tablet Take 1 Tab by mouth at bedtime. 06/15/2020 documented as of this encounter Historical Medications * This list may reflect changes made after this encounter. magnesium glycinate-mag oxide 120 mg magnesium capsule Take 240 mg by mouth 2 times daily. GLYCINE ORAL Take 1,500 mg by mouth at bedtime. multivitamin (NEPHROVITE) 0.8 mg tablet Take 1 Tab by mouth at bedtime. 06/15/2020 Hesperidin-Diosm in 250-650 mg tablet Take by mouth. 09/03/2020 GLYCERIN MM by mucous membrane route. 06/15/2020 magnesium hydroxide (MILK OF MAGNESIA) 400 mg/5 mL suspension Take 30 mL by mouth daily as needed. 06/15/2020 added in this encounter Care Teams Proposal Manager Writer Relationship Specialty Start Date End Date Skye Hernandez [address] [place] [address] PCP - General 08/11/18 01/02/22 Kimi Deleon MD [address] [place] [phone] 05/16/20 Hannah Batres NP [address] [place] [address] 05/16/20 documented as of this encounter
--- OUTSIDE RECORDS SUMMARY | 2024-04-19 08:12 | XMS_ITS | Encounter Summary ---
Author Organization [facility] Address [address] [place] [address] Care Team Providers Care Cyber Reverse Engineer Name Role Phone Skye Hernandez Primary Care Provider [phone] Encounter Details Date Type Department Care Team (Late st Contact Info) Description 04/23/2020 Documentation Visit [facility] Surgical Oncology - [facility] [address] [place], [place] [phone] Abebe Ralph MD 111 [facility], [address] [place] [address] Social History Tobacco Use Types [...] documented in this encounter Progress Notes * Jesusita Bates - 04/23/2020 1319 EST Patient is scheduled, Saturday, May 16, 2020 @ 2:15pm. Patient is aware to come alone to the appointment due to the Covid Restrictions in the [facility]. A Confirmation letter, Provider Bio Card were mailed to the patient.Patient NPF's already rcv'd. Referring provider has been notified. My name and number was provided to the patient should they need to cancel or change there appointment. Jesusita, Real Estate Lawyer, [facility] [phone]. documented in this encounter Plan of Treatment Upcoming Encounters Date Type Department Care Team (Late st Contact Info) Description 07/21/2024 11:00 EDT Office Visit [facility] Ophthalmology [address] [phone] Marcial Magaña MD [address] [place] [address], [facility] [address] [place] [address] 07/25/2024 11:00 EDT Phlebotomy Only [facility] Hematology & Oncology [address] [phone] Blood Doctor, [facility] Hem Onc 07/25/2024 11:45 EDT Office Visit [facility] Hematology & Oncology [address] [phone] Abebe Ralph MD [address] [place] [address], [address] [place] [address] 07/25/2024 12:30 EDT Appointment [facility] Cancer Center Hematology & Oncology - [address] [phone] 01/03/2025 16:20 EDT Appointment [facility] Breast Imaging Mammography - [address] [phone] documented as of this encounter Visit Diagnoses Not on filedocumented in this encounter Care Teams Cyber Reverse Engineer Relationship Specialty Start Date End Date Skye Hernandez [address] [place] [address] PCP - General 08/11/18 01/02/22 documented as of this encounter
--- OUTSIDE RECORDS SUMMARY | 2024-04-19 08:12 | XMS_ITS | Encounter Summary ---
Author Organization [facility] Address [address] [place] [address] Care Team Providers Care Glass Washer Name Role Phone Skye Hernandez Primary Care Provider [phone] Kimi Deleon MD Unavailable [phone] Hannah Batres NP Unavailable [phone] Encounter Details Date Type Department Care Team (Late st Contact Info) Description 07/06/2020 Orders Only [facility] Hematology & Oncology - Main [place] [address] [place] [address] Ruthann Campbell, RN [address] [place] [address] Malignant neoplasm of upper-outer quadrant of right [...] Info) Description 07/21/2024 11:00 EDT Office Visit [facility] Ophthalmology - [address] [phone] aMrcial Magaña MD [address] [place] [address] 5 [place] [phone] 07/25/2024 11:00 EDT Phlebotomy Only [facility] Hematology & Oncology [address] [address] Blood Doctor, [facility] Hem Onc 07/25/2024 11:45 EDT Office Visit [facility] Hematology & Oncology [address] 509771 Abebe Ralph MD [address] [place] [address], Level 2 [place] [phone] 07/25/2024 12:30 EDT Appointment [facility] Hematology & Oncology [address] [phone] 01/03/2025 16:20 EDT Appointment [facility] Breast Imaging [address] [address] documented as of this encounter Results * (ABNORMAL) COMPREHENSIVE METABOLIC PANEL (ONCOLOGY USE ONLY-INC MG) (07/06/2020 14:34 EDT) Sodium 141 136 - 145 mEq/L 07/06/2020 15:33 [facility] Potassium 4.4 3.5 - 5.0 mEq/L 07/06/2020 15:33 [facility] Chloride 106 96 - 110 mEq/L 07/06/2020 15:33 [facility] CO2 Total 26 22 - 32 mEq/L 07/06/2020 15:33 [facility] Glucose 99 70 - 100 mg/dL 07/06/2020 15:33 [facility] BUN 21 10 - 26 mg/dL 07/06/2020 15:33 [facility] Creatinine 0.71 0.52 - 1.04 mg/dL 07/06/2020 15:33 [facility] eGFR 86 >60 mL/min/1.7 3m2 07/06/2020 15:33 [facility] Comment:eGFR calculated olimpia evans CKD-EPI equation for non- Americans. Multiply eGFR by 1.16 for patients. Total Protein 7.0 6.3 - 8.2 g/dL 07/06/2020 15:33 [facility] Albumin 4.3 3.4 - 4.9 g/dL 07/06/2020 15:33 [facility] Alkaline Phosphatase 46 38 - 126 U/L 07/06/2020 15:33 [facility] AST 34 15 - 46 U/L 07/06/2020 15:33 [facility] ALT 36(H) <35 U/L 07/06/2020 15:33 [facility] Bilirubin, Total <0.5 <1.4 mg/dL 07/07/19 15:33 [facility] Calcium 9.3 8.5 - 10.5 mg/dL 07/06/2020 15:33 [facility] Calculated Calcium 9.1 8.5 - 10.5 mg/dL 07/06/2020 15:33 [facility] Magnesium 2.4 1.7 - 2.8 mg/dL 07/06/2020 15:33 [facility] Blood VENOUS BLOOD / Unknown Venipuncture / Unknown 07/06/2020 14:34 EDT 07/06/2020 15:03 EDT us Abebe Ralph MD CHEMISTRY & BLOOD GAS ORDERAB LES Final Result [facility] [address] [place] [address] * COMPLETE BLOOD COUNT AND DIFFERENTIAL (07/06/2020 14:34 EDT) WBC 5.26 4.00 - 12.40 K/cmm 07/06/2020 15:10 [facility] RBC 4.17 3.86 - 5.04 M/cmm 07/06/2020 15:10 [facility] Hemoglobin 12.9 11.6 - 15.2 gm/dL 07/06/2020 15:10 [facility] HCT 39.6 34.9 - 44.4 % 07/06/2020 15:10 [facility] MCV 95 81 - 98 fl 07/06/2020 15:10 [facility] MCH 30.9 26.7 - 33.3 pg 07/06/2020 15:10 [facility] MCHC 32.6 32.1 - 35.9 gm/dL 07/06/2020 15:10 [facility] RDW-CV 13.2 <14.7 % 07/06/2020 15:10 [facility] RDW-SD 46.2 <50.4 fl 07/06/2020 15:10 [facility] PLT 223 141 - 377 K/cmm 07/06/2020 15:10 [facility] MPV 12.2 9.5 - 12.7 fl 07/06/2020 15:10 [facility] % Neutrophils 46.9 % 07/06/2020 15:10 [facility] % Lymphocytes 39.7 % 07/06/2020 15:10 [facility] % Monocytes 10.5 % 07/06/2020 15:10 [facility] % Eosinophils 2.1 % 07/06/2020 15:10 [facility] % Basophils 0.6 % 07/06/2020 15:10 [facility] % Immature Grans 0.2 % 07/07/19 15:10 [facility] Absolute Neutrophils 2.47 2.20 - 8.85 K/cmm 07/06/2020 15:10 [facility] Absolute Lymphocytes 2.09 1.09 - 3.30 K/cmm 07/06/2020 15:10 [facility] Absolute Monocytes 0.55 0.10 - 0.80 K/cmm 07/06/2020 15:10 [facility] Absolute Eosinophils 0.11 0.03 - 0.61 K/cmm 07/06/2020 15:10 [facility] ABS Basophils 0.03 0.01 - 0.11 K/cmm 07/06/2020 15:10 [facility] Absolute Immature Grans 0.01 0.00 - 0.06 K/cmm 07/06/2020 15:10 [facility] Type of Differential: Auto 07/06/2020 15:10 [facility] Blood VENOUS BLOOD / Unknown Venipuncture / Unknown 07/06/2020 14:34 EDT 07/06/2020 15:04 EDT us Abebe Ralph MD PACKAGES & DNA PROBE ORDERABL ES Final Result [facility] [address] [place] [address] documented in this encounter Visit Diagnoses Diagnosis Malignant neoplasm of upper-outer quadrant of right breast in female, estrogen receptor positive ([facility])- Primary Encounter for screening mammogram for malignant neoplasm of breast Other screening mammogram documented in this encounter Care Teams Glass Washer Relationship Specialty Start Date End Date Skye Hernandez [address] [place] [address] PCP - General 08/11/18 01/02/22 Kimi Deleon MD [address] [place] [address] 05/16/20 Hannah Batres NP [address] [place] [address] 05/16/20 documented as of this encounter
--- OUTSIDE RECORDS SUMMARY | 2024-04-19 08:12 | XMS_ITS | Encounter Summary ---
Author Organization [facility] Address [address] [place] [address] Care Team Providers Care Care Manager Cna Name Role Phone Skye Hernandez Primary Care Provider [phone] Kimi Deleon MD Unavailable [phone] Hannah Batres NP Unavailable [phone] Encounter Details Date Type Department Care Team (Latest Contact Info) Description 08/29/2020 Travel Social History Tobacco Use Types Packs/Day Years [...] 07/21/2024 11:00 EDT Office Visit [facility] Ophthalmology - [address] [address]26211 Marcial Magaña MD [address] [place] [address] 5 [place] [phone] 07/25/2024 11:00 EDT Phlebotomy Only [facility] Hematology & Oncology - [address] [phone] Blood Doctor, [facility] Hem Onc 07/25/2024 11:45 EDT Office Visit [facility] Hematology & Oncology [address] 626[address] Abebe Ralph MD [address] [place] [address], Level [address] [place] [phone] 07/25/2024 12:[address] [facility] Hematology & Oncology [address] [phone] 01/03/2025 16:20 EDT Appointment [facility] Breast Imaging Mammography - [address] 916471 documented as of this encounter Visit Diagnoses Not on filedocumented in this encounter Care Teams Care Manager Cna Relationship Specialty Start Date End Date Skye Hernandez [address] [place] [address] PCP - General 08/11/18 01/02/22 Kimi Deleon MD [address] [place] [address] 05/16/20 Hannah Batres NP [address] [place], [place] [address] 05/16/20 documented as of this encounter
--- OUTSIDE RECORDS SUMMARY | 2024-04-19 08:12 | XMS_ITS | Encounter Summary ---
Author Organization [facility] Address [address] [place] [address] Care Team Providers Care Pearl Fisherman Name Role Phone Skye Hernandez Primary Care Provider [phone] Encounter Details Date Type Department Care Team (Late st Contact Info) Description 05/10/2020 Documentation Visit [facility] Surgical Oncology - [facility] [address] [place], [place] [phone] Abebe Ralph MD [address] [facility], Level 2 [place] [address] Social History Tobacco Use Types [...] encounter Progress Notes * Jesusita Bates - 05/10/2020 0854 EST NPV -In Clinic-PT COMPLETED NEW PATIENT FORMS transfer of care - Breast Cancer - Pt currently on Tamoxifen PKT in [place] office Jesusita Bates 05/10/2020 8:56 documented in this encounter Plan of Treatment Upcoming Encounters Date Type Department Care Team (Late st Contact Info) Description 07/21/2024 11:00 EDT Office Visit [facility] Ophthalmology - [address] [phone] Marcial Magaña MD [address] [place] [address], [facility] [address] [place] [phone] 07/25/2024 11:00 EDT Phlebotomy Only [facility] Hematology & Oncology - [address] 112371 Blood Doctor, [facility] Hem Onc 07/25/2024 11:45 EDT Office Visit [facility] Hematology & Oncology [address] [phone] Abebe Ralph MD [address] [place] [address], [facility] [address] [place] [phone] 07/25/2024 12:30 EDT Appointment [facility] Hematology & Oncology - [address] [address] 01/03/2025 16:20 EDT Appointment [facility] Breast Imaging Mammography - [address] [address] documented as of this encounter Visit Diagnoses Not on filedocumented in this encounter Care Teams Pearl Fisherman Relationship Specialty Start Date End Date Skye Hernandez [address] [place] [address] PCP - General 08/11/18 01/02/22 documented as of this encounter
--- OUTSIDE RECORDS SUMMARY | 2024-04-19 08:12 | XMS_ITS | Encounter Summary ---
Author Organization [facility] Address [address] [place] [address] Care Team Providers Care Water Pollution Specialist Name Role Phone Skye Hernandez Primary Care Provider Kimi Deleon MD Unavailable [phone] Hannah Batres NP Unavailable [phone] Encounter Details Date Type Department Care Team (Late st Contact Info) Description 07/11/2020 Orders Only [facility] Hematology & Oncology - Main [place] [address] [place] [address] Stephanie Wray RN Osteoporosis without current pathological fracture, unspecified osteoporosis type (Primary Dx) Social History Tobacco Use [...] Info) Description 07/21/2024 11:00 EDT Office Visit [facility] Ophthalmology - [address] [address] Marcial Magaña MD [address] [place] [address] 5 [place] [phone] 07/25/2024 11:00 EDT Phlebotomy Only [facility] Hematology & Oncology [address] 347101 Blood Doctor, [facility] Hem Onc 07/25/2024 11:45 EDT Office Visit [facility] Hematology & Oncology [address] 1784[address] Abebe Ralph MD [address] [place] [address], Level [address] [place] [phone] 07/25/2024 12:30 EDT Appointment [facility] Hematology & Oncology [address] 738411 01/03/2025 16:20 EDT Appointment [facility] Breast Imaging Mammography - [address] [phone] documented as of this encounter Visit Diagnoses Diagnosis Osteoporosis without current pathological fracture, unspecified osteoporosis type- Primary Encounter for screening mammogram for malignant neoplasm of breast Other screening mammogram documented in this encounter Care Teams Water Pollution Specialist Relationship Specialty Start Date End Date Skye Hernandez [address] [place] [address] PCP - General 08/11/18 01/02/22 Kimi Deleon MD [address] [place] [address] 05/16/20 Hannah Batres NP [address] [place] [address] 05/16/20 documented as of this encounter
--- OUTSIDE RECORDS SUMMARY | 2024-04-19 08:12 | XMS_ITS | Encounter Summary ---
Author Organization [facility] Address [address] [place] [address] Care Team Providers Care Laser Machine Operator Name Role Phone Skye Hernandez Primary Care Provider Kimi Deleon MD Unavailable [phone] Hannah Batres NP Unavailable [phone] Reason for Visit * Reason Comments Eye Problem Encounter Details Date Type Department Care Team (Late st Contact Info) Description 06/01/2020 10:30 EST Office Visit [facility] [place] Ophthalmology - [address] [address] Marcial Magaña MD [address] [facility], Level [address] [place] [address] Social History Tobacco Use Types [...] Progress Notes * Marcial Magaña MD - 06/01/2020 1030 EST Chief Complaint Patient presents with ??? Eye Problem Comments WET AMD-right eye Here for Eylea HPI Location: Both eyes Pain: 0 - No pain Quality: Severity: Severe Duration: Years Timing: Constant Lasts: Continuous Context: Eylea injections to the right eye Modifying factors: Eylea Associated Signs & Symptoms: Vision seems to be better right eye Visual Fluctuations: None Attestation: Base Eye Exam Visual Acuity (Snellen - Linear) Right Left Dist cc 20/30 20/25 Tonometry (Applanation, 10:27) Right Left Pressure 13 13 Pupils Pupils APD Right PERRL None Left PERRL None Neuro/Psych Oriented x3: Yes Mood/Affect: Normal Dilation Both eyes: Phenylephrine 2.5%, Tropicamide 1% @ 10:27 Slit Lamp and Fundus Exam Slit Lamp Exam Right Left Lids/Lashes Normal Normal Conjunctiva/Sclera White and quiet White and quiet Cornea Clear Clear Anterior Chamber Deep and quiet Deep and quiet Iris Round and reactive Round and reactive Lens Trace NS Trace NS Vitreous Vitreous syneresis Vitreous syneresis Fundus [...] was good. Scan locations included subfoveal. Notes Right eye stable PED, recurrence of SRF sliver Left eye drusen, no fluid. OCT-A no CNVM Intravitreal Injection, Pharmacologic Agent - OD - Right Eye Time Out 06/01/2020. 11:10. Confirmed correct patient, procedure, site, and patient consented. Anesthesia Topical anesthesia was used. Anesthetic medications included Proparacaine 0.5%, Tetracaine 0.5%. Procedure Preparation included 5% betadine to ocular surface. A supplied needle was used. Injection: 2 mg aflibercept 2 mg/0.05 mL [facility]: 82160-715-34, Lot: [id number], Expiration date: 12/21/2020 Route: intravitreal, Site: Right Eye Post-op Post injection exam found visual acuity of at least counting fingers. The patient tolerated the procedure well. There were no complications. The patient received written and verbal post procedure care education. Post injection medications were not given. DIAGNOSES: 1. Exudative 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([facility]) OCT, RETINA - OU - BOTH EYES INTRAVITREAL INJECTION, PHARMACOLOGIC AGENT - OD - RIGHT EYE aflibercept (EYLEA) intravitreal syringe 2 mg 2. Intermediate stage nonexudative age-related macular degeneration of left eye OCT, RETINA - OU - BOTH EYES Assessment Wet age-related macular degeneration right eye?? Improved 20/30 vision, with recurrence of SUBRETINAL FLUID sliver 5 vs 4 weeks s/p Eylea Offer Eylea #3 today and continue every 5 weeks - no additional extension for now? Intermediate??dry??age-related macular degeneration left eye Continue areds??2??vits and regular amsler use Observe Return in about 5 weeks (around 07/06/2020), or if symptoms worsen or fail to improve, for OCT Macular, right eye, Eylea. I have reviewed the past medical, family, [...] Visit [facility] [place] Ophthalmology - [address] [phone] Marcial Magaña MD [address] [place] [address], [facility] 5 [place] [phone] 07/25/2024 11:00 EDT Phlebotomy Only [facility] Hematology & Oncology - [address] [phone] Blood Doctor, [facility] Hem Onc 07/25/2024 11:45 EDT Office Visit [facility] Hematology & Oncology - [address] [phone] Abebe Ralph MD [address] [place] [address], Level [address] [place] [phone] 07/25/2024 12:30 EDT Appointment [facility] Hematology & Oncology - [address] [phone] 01/03/2025 16:20 EDT Appointment [facility] Breast Imaging Mammography - [address] 645691 documented as of this encounter Procedures Procedure Name Priority Date/Time Associated Diagnosis Comments INTRAVITREAL INJECTION, PHARMACOLOGIC AGENT - OD - RIGHT EYE Routine 06/01/2020 11:18 EST Exudative 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 (HCC-CMS) OCT, RETINA - OU - BOTH EYES Routine 06/01/2020 11:01 EST Exudative 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 (HCC-CMS) Intermediate stage nonexudative age-related macular degeneration of left eye documented in this encounter Results * INTRAVITREAL INJECTION, PHARMACOLOGIC AGENT - OD - RIGHT EYE (06/01/2020 11:18 EST) Narrative [facility]INT [facility] CARE - 06/01/2020 11:31 EST Time Out 06/01/2020. 11:10. Confirmed correct patient, procedure, site, and patient consented. Anesthesia Topical anesthesia was used. Anesthetic medications included Proparacaine 0.5%, Tetracaine 0.5%. Procedure Preparation included 5% betadine to ocular surface. A supplied needle was used. Injection: 2 mg aflibercept 2 mg/0.05 mL ??[facility]: 85124-633-11, Lot: [id number], Expiration date: 12/21/2020 ??Route: intravitreal, Site: Right Eye Post-op Post injection exam found visual acuity of at least counting fingers. The patient tolerated the procedure well. There were no complications. The patient received written and verbal post procedure care education. Post injection medications were not given. Marcial Magaña MD OPHTH CLINIC PROCEDURES Final Re sult Performing Organization Address [facility]/ZIP Co de Phone Number [facility] * OCT, RETINA - OU - BOTH EYES (06/01/2020 11:01 EST) Narrative [facility] POINT OF CARE - 06/01/2020 11:30 EST Right Eye Quality was good. Scan locations included subfoveal. Left Eye Quality was good. Scan locations included subfoveal. Notes Right eye stable PED, recurrence of SRF sliver Left eye drusen, no fluid. OCT-A no CNVM Marcial Magaña MD OPHTH TOMOGRAPHY Final Result Performing Organization Address [facility]/ZIP Co de Phone Number [facility] documented in this encounter Visit Diagnoses Diagnosis Exudative 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 (HCC-CMS)- Primary Intermediate stage nonexudative age-related macular degeneration of left eye Encounter for screening mammogram for malignant neoplasm of breast Other screening mammogram documented in this encounter Administered Medications Inactive Administered Medications - up to 3 most recent administrations Medication Order MAR Action Action Date Dose Rate Site aflibercept (EYLEA) intravitreal syringe 2 mg 2 mg, intravitreal, Starting on Thu06/01/20 at 1110, Until Thu06/01/20 at 1331, RoutineIndications:Exudative 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 (HCC-CMS) Given 06/01/2020 11:10 EST 2 mg Right E ye documented in this encounter Orders Medications Ordered That Trevor ht Not Have Been Administered Count Last Ordered Date First Ordered Date aflibercept (EYLEA) intravit real syringe 2 mg 1 06/01/2020 documented in this encounter Eye Exam Visual Acuity (Snellen - Linear) Right eye Left eye Dist cc 20/30 20/25 Tonometry (Applanation, 10:27) Right eye Left eye Pressure 13 13 Pupils Pupils APD Right eye PERRL None Left eye PERRL None Neuro/Psych Oriented x3: Yes Mood/Affect: Normal Dilation Both eyes: Phenylephrine 2.5 %, Tropicamide 1% @ 10:27 Slit Lamp Exam Right eye Left eye Lids/Lashes Normal Normal Conjunctiva/Sclera White and quiet White and renzo et Cornea Clear Clear Anterior Chamber Deep and quiet Deep and quiet Iris Round and reactive Round and gerald ctive Lens Trace NS Trace NS Vitreous Vitreous syneresis Vitreous syne resis Fundus Exam Right eye Left eye Disc Normal Normal C/D Ratio 0.6 0.6 Macula intermediate and lar ge drusen, PED inferior to fovea large drusen, RPE mottling Vessels Normal Normal Periphery Attached without predisposing le sions Attached without predisposing lesions Care Teams Laser Machine Operator Relationship Specialty Start Date End Date Skye Hernandez [address] [place] [address] PCP - General 08/11/18 01/02/22 Kimi Deleon MD [address] [place] [phone] 05/16/20 Hannah Batres NP [address] [place], [place] [address] 05/16/20 documented as of this encounter
--- OUTSIDE RECORDS SUMMARY | 2024-04-19 08:12 | XMS_ITS | Encounter Summary ---
Author Organization [facility] Address [address] [place] [address] Care Team Providers Care Data Integrity Analyst Name Role Phone DavidSkye Faiza Primary Care Provider [phone] Kimi Deleon MD Unavailable [phone] Hannah Batres NP Unavailable [phone] Reason for Referral * Radiology Services (Routine) - Closed Specialty Diagnoses / Procedures Referred By Contac t Referred To Contact Diagnoses Malignant neoplasm of upper-outer quadrant of right breast in female, estrogen receptor positive (HCC-CMS) Procedures MA BREAST SCREENING JOE BILATERAL Abebe Ralph MD Phone: tel: fax: Referral ID Status Reason Start Date Expiration Date Visits Re quested Visits Authorized [id number] Closed 07/11/2020 1 1 Reason for Visit * Radiology Services (Routine) - Closed Specialty Diagnoses / Procedures Referred By Contac t Referred To Contact Diagnoses Malignant neoplasm of upper-outer quadrant of right breast in female, estrogen receptor positive (HCC-CMS) Procedures MA BREAST SCREENING JOE BILATERAL Abebe Ralph MD Phone: tel: fax: Referral ID Status Reason Start Date Expiration Date Visits Re quested Visits Authorized [id number] Closed 07/11/2020 1 1 Encounter Details Date Type Department Care Team (Latest Contact Info) Description 08/29/2020 10:12 EDT - 08/29/2020 23:59 EDT Hospital Encounter [facility] Breast Imaging Mammography - [address] [address] Malignant neoplasm of upper-outer quadrant of right breast in female, estrogen receptor positive (HCC-CMS) Discharge Disposition: Home or Self Care [...] mL 0.05 mL by intravitreal route Once. denosumab 60 mg/mL syringe syringe Inject 1 mL into the skin every 6 months. (started 12/16/18 at [facility]) Fish Oil-Eighty Four-3 Fatty Acids 360-1,200 mg capsule 1360mg, 2 caps by mouth daily GLYCINE ORAL Take 1,500 mg by mouth at bedtime. magnesium glycinate-mag oxide 120 mg magnesium capsule Take 240 mg by mouth 2 times daily. Multivitamins with Minerals tablet tablet Take 1 Tablet by mouth daily. (contains calcium 25 mg, vitamin D 1000 iu) cholecalciferol, Vitamin D3, 1,000 unit tablet Take 4,000 Units by mouth daily. 4 citalopram (CELEXA) 10 mg tablet Take 1 Tab by mouth at bedtime. 30 Tab 1 07/16/2020 1 Hesperidin-Diosm in 250-650 mg tablet Take by mouth. 1 letrozole (FEMARA) 2.5 mg tablet Take 1 Tab by mouth daily. 90 Tab 4 05/16/2020 2 pq-dg-rebewz-aidan [id number] ([facility] FORMULA) 5-1-7.5 mg capsule 1 cap(s) orally once a day 1 zodsm-8-tkp-epa- dpa-fish oil 1,050 mg(300 mg -675 mg-75 mg) capsule Take by mouth. 1 documented as of this encounter Discharge Disposition Disposition Code Departure Means Destination Home or Self Group Home documented in this encounter Plan of Treatment Upcoming Encounters Date Type Department Care Team (Late st Contact Info) Description 07/21/2024 11:00 EDT Office Visit [facility] Ophthalmology - [address] [phone] Marcial Magaña MD [address] [place] [address], [address] [place] [phone] 07/25/2024 11:00 EDT Phlebotomy Only [facility] Hematology & Oncology [address] [phone] Blood Doctor, [facility] Hem Onc 07/25/2024 11:45 EDT Office Visit [facility] Hematology & Oncology - [address] [phone] Abebe Ralph MD [address] [facility], [facility], [address] [place] [phone] 07/25/2024 12:30 EDT Appointment [facility] Hematology & Oncology [address] [phone] 01/03/2025 16:20 EDT Appointment [facility] Breast Imaging Mammography - [address] [phone] documented as of this encounter Procedures Procedure Name Priority Date/Time Associated Diagnosis Comments MA BREAST SCREENING JOE BILATERAL Routine 08/29/2020 10:44 EDT Malignant neoplasm of upper-outer quadrant of right breast in female, estrogen receptor positive ([facility]) documented in this encounter Results * MA BREAST SCREENING JOE BILATERAL (08/29/2020 10:44 EDT) Anatomical Region Laterality Modality Breast Bilateral Mammography 08/31/2020 8:29 EDT Impressions 08/31/2020 8:29 EDT Benign, no evidence of malignancy. RECOMMENDATION: Routine screening mammography is recommended. OVERALL ASSESSMENT: BI-RADS 2: Benign These results will be communicated to your patient via a lay letter from Radiology. If any additional imaging is needed we will contact your patient directly. Narrative 08/31/2020 8:29 EDT MA BREAST SCREENING JOE BILATERAL ??08/29/2020 10:30 AM History: annual Comparison: ??Comparison has been made to previous images. Technique: Routine 3D tomosynthesis with synthesized 2D views with CAD Bilateral Breast Composition: There are scattered areas of fibroglandular density. Bilateral Breast Findings: ??No significant masses, calcifications or other abnormalities are seen. There are stable changes in the right breast related to prior breast conserving surgery. Procedure Note Lydia Duncan MD - 08/31/2020 MA BREAST SCREENING JOE BILATERAL 08/29/2020 10:30 AM History: annual Comparison: Comparison has been made to previous images. Technique: Routine 3D tomosynthesis with synthesized 2D views with CAD Bilateral Breast Composition: There are scattered areas of fibroglandulardensity. Bilateral Breast Findings: No significant masses, calcifications or otherabnormalities are seen. There are stable changes in the right breastrelated to prior breast conserving surgery. IMPRESSION Benign, no evidence of malignancy. RECOMMENDATION: [...] right breast in female, estrogen receptor positive ([facility]) Encounter for screening mammogram for malignant neoplasm of breast Other screening mammogram documented in this encounter Care Teams Data Integrity Analyst Relationship Specialty Start Date End Date Skye Hernandez [address] [place] [address] PCP - General 08/11/18 01/02/22 Kimi Deleon MD [address] [place] [phone] 05/16/20 Hannah Batres NP [address] [place] [address] 05/16/20 documented as of this encounter
--- OUTSIDE RECORDS SUMMARY | 2024-04-19 08:12 | XMS_ITS | Encounter Summary ---
Author Organization [facility] Address [address] [place] [address] Care Team Providers Care Bottom Liquor Attendant Name Role Phone Skye Hernandez Primary Care Provider [phone] Reason for Visit * Reason Comments Eye Problem Encounter Details Date Type Department Care Team (Late st Contact Info) Description 04/27/2020 12:45 EST Office Visit [facility] Ophthalmology - [address] [phone] Marcial Magaña MD [address] [facility], [address] [place] [address] Social History Tobacco Use Types [...] Progress Notes * Marcial Magaña MD - 04/27/2020 1245 EST Chief Complaint Patient presents with ??? Eye Problem Comments Patient here for Wet AMD right eye, s/p eylea #2 right eye 03/29/20. No vision changes. Floater x 2 days s/p last injection but now gone. No flashes. No current eye drops. HPI Location: Right eye Pain: 0 - No pain Quality: Blurry Severity: Moderate Duration: Timing: Lasts: Context: Patient here for Wet AMD right eye, s/p eylea #2 right eye 03/29/20. No vision changes. Floater x 2 days s/p last injection but now gone. No flashes. No current eye drops. Modifying factors: Associated Signs & Symptoms: Wet AMD right eye Visual Fluctuations: Floaters Attestation: Base Eye Exam Visual Acuity (Snellen - Linear) Right Left Dist sc 20/40 20/20 -2 Dist ph sc 20/25 Tonometry (Applanation, 12:41) Right Left Pressure 15 13 Pupils APD Right None Left None Neuro/Psych Oriented x3: Yes Mood/Affect: Normal Dilation Both eyes: Tropicamide 1%, Phenylephrine 2.5% @ 12:45 Slit Lamp and Fundus Exam Slit Lamp [...] Please refer to large retinal drawing. IMAGING: Intravitreal Injection, Pharmacologic Agent - OD - Right Eye Time Out 04/27/2020. 13:47. Confirmed correct patient, procedure, site, and patient consented. Anesthesia Topical anesthesia was used. Anesthetic medications included Proparacaine 0.5%, Tetracaine 0.5%. Procedure Preparation included 5% betadine to ocular surface, eyelid speculum. A 30 gauge needle was used. Injection: 2 mg aflibercept 2 mg/0.05 mL ND: 00985-182-25, Lot: [id number], Expiration date: 08/25/2020 Route: intravitreal, Site: Right Eye Post-op Post injection exam found visual acuity of at least counting fingers. The patient tolerated the procedure well. There were no complications. OCT, Retina - OU - Both Eyes Right eye: Stable PED, resolution of subretinal fluid Left eye: drusen DIAGNOSES: 1. Exudative 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([facility]) INTRAVITREAL INJECTION, PHARMACOLOGIC AGENT - OD - RIGHT EYE aflibercept (EYLEA) intravitreal syringe 2 mg OCT, RETINA - OU - BOTH EYES Assessment Wet age-related macular degeneration right eye Stable 20/40 vision, with resolution in SUBRETINAL FLUID 4 weeks s/p Eylea #2 Offer Eylea #3 today and extend to 5 weeks ?? Intermediate??dry??age-related macular degeneration left eye Continue areds??2??vits and regular amsler use Observe I have reviewed the past medical, [...] Info) Description 07/21/2024 11:00 EDT Office Visit [facility] Ophthalmology - [address] [address] Marcial Magaña MD [address] [facility], [address] [place] [phone] 07/25/2024 11:00 EDT Phlebotomy Only [facility] Hematology & Oncology - [address] [phone] Blood Doctor, [facility] Hem Onc 07/25/2024 11:45 EDT Office Visit [facility] Hematology & Oncology - [address] [phone] Abebe Ralph MD [address] [place] [address], [address] [place] [phone] 07/25/2024 12:30 EDT Appointment [facility] Hematology & Oncology - [address] [phone] 01/03/2025 16:20 EDT Appointment [facility] Breast Imaging Mammography - [address] [phone] documented as of this encounter Procedures Procedure Name Priority Date/Time Associated Diagnosis Comments OCT, RETINA - OU - BOTH EYES Routine 05/16/2020 14:24 EST Exudative 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 ([facility]) INTRAVITREAL INJECTION, PHARMACOLOGIC AGENT - OD - RIGHT EYE Routine 04/27/2020 12:45 EST Exudative 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 (HCC-CMS) documented in this encounter Results * OCT, RETINA - OU - BOTH EYES (05/16/2020 14:24 EST) Narrative [facility] POINT OF CARE - 05/16/2020 14:24 EST Right eye: ??Stable PED, resolution of subretinal fluid Left eye: drusen us Marcial Magaña MD OPHTH TOMOGRAPHY Final Result Performing Organization Address [facility]/ZIP Co de Phone Number [facility] POINT OF CARE * INTRAVITREAL INJECTION, PHARMACOLOGIC AGENT - OD - RIGHT EYE (04/27/2020 12:45 EST) Narrative [facility] POINT [facility]ARE - 05/16/2020 14:25 EST Time Out 04/27/2020. 13:47. Confirmed correct patient, procedure, site, and patient consented. Anesthesia Topical anesthesia was used. Anesthetic medications included Proparacaine 0.5%, Tetracaine 0.5%. Procedure Preparation included 5% betadine to ocular surface, eyelid speculum. A 30 gauge needle was used. Injection: 2 mg aflibercept 2 mg/0.05 mL ??[facility]: 40414-719-47, Lot: [id number], Expiration date: 08/25/2020 ??Route: intravitreal, Site: Right Eye Post-op Post injection exam found visual acuity of at least counting fingers. The patient tolerated the procedure well. There were no complications. 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 (HCC-CMS)- Primary Encounter for screening mammogram for malignant neoplasm of breast Other screening mammogram documented in this encounter Administered Medications Inactive Administered Medications - up to 3 most recent administrations Medication Order MAR Action Action Date Dose Rate Site aflibercept (EYLEA) intravitreal syringe 2 mg 2 mg, intravitreal, Starting on Thu04/27/20 at 1245, Until Thu04/27/20 at 1245, RoutineIndications:Exudative 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 (HCC-CMS) Given 04/27/2020 12:45 EST 2 mg Right E ye documented in this encounter Orders Medications Ordered That Trevor ht Not Have Been Administered Count Last Ordered Date First Ordered Date aflibercept (EYLEA) intravit real syringe 2 mg 1 04/27/2020 documented in this encounter Eye Exam Visual Acuity (Snellen - Linear) Right eye Left eye Dist sc 20/40 20/20 -2 Dist ph sc 20/25 Tonometry (Applanation, 12:41) Right eye Left eye Pressure 15 13 Pupils APD Right eye None Left eye None Neuro/Psych Oriented x3: Yes Mood/Affect: Normal Dilation Both eyes: Tropicamide 1%, P henylephrine 2.5% @ 12:45 Slit Lamp Exam Right eye Left eye [...] sions Attached without predisposing lesions Care Teams Bottom Liquor Attendant Relationship Specialty Start Date End Date Skye Hernandez [address] [place] [address] PCP - General 08/11/18 01/02/22 documented as of this encounter
--- OUTSIDE RECORDS SUMMARY | 2024-04-19 08:12 | XMS_ITS | Encounter Summary ---
Author Organization [facility] Address [address] [place] [address] Care Team Providers Care Hat Block Maker Name Role Phone Skye Hernandez Primary Care Provider [phone] Kimi Deleon MD Unavailable [phone] Hannah Batres NP Unavailable [phone] Reason for Visit * Reason Comments Follow-up Encounter Details Date Type Department Care Team (Late st Contact Info) Description 08/14/2020 16:00 EDT Office Visit [facility] Hematology & Oncology - [address] [address] Ivonne Killian MD PhD Malignant [...] Progress Notes * Ivonne Killian MD - 08/14/2020 1600 EDT This patient participated in the Shared Medical Visit today. documented in this encounter Plan of Treatment Upcoming Encounters Date Type Department Care Team (Late st Contact Info) Description 07/21/2024 11:00 EDT Office Visit [facility] Ophthalmology - [address] [phone] Marcial Magaña MD [address] [place] [address] [address] [place] [phone] 07/25/2024 11:00 EDT Phlebotomy Only [facility] Hematology & Oncology [address] [address] Blood Doctor, [facility] Hem Onc 07/25/2024 11:45 EDT Office Visit [facility] Hematology & Oncology [address] [phone] Abebe Ralph MD [address] [place] [address], [address] [place] [phone] 07/25/2024 12:30 EDT Appointment [facility] Cancer Center Hematology & Oncology - [address] [phone] 01/03/2025 16:20 EDT Appointment [facility] Breast Imaging Mammography - [address] [address] documented as of this encounter Visit Diagnoses Diagnosis Malignant neoplasm of upper-outer quadrant of right breast in female, estrogen receptor positive ([facility])- Primary Encounter for screening mammogram for malignant neoplasm of breast Other screening mammogram documented in this encounter Care Teams Hat Block Maker Relationship Specialty Start Date End Date Skye Hernandez [address] [place] [address] PCP - General 08/11/18 01/02/22 Kimi Deleon MD [address] [place] [address] 05/16/20 Hannah Batres NP [address] [place] [address] 05/16/20 documented as of this encounter
--- OUTSIDE RECORDS SUMMARY | 2024-04-19 08:12 | XMS_ITS | Encounter Summary ---
Author Organization [facility] Address [address] [place] [address] Care Team Providers Care Aviation Boatswain'S Mate Name Role Phone Skye Hernandez Primary Care Provider [phone] Reason for Visit * Reason Onset Date Comments Medications Refill 04/30/2020 Encounter Details Date Type Department Care Team (Late st Contact Info) Description 04/30/2020 Refill [facility] Adult Hematology & Oncology [address] [place] [phone] Ramon Otero MD [address] [place] [address], [facility] [address] [place] [address] Medications Refill Social History Tobacco Use Types [...] Refills Last Filled Start Date End Date tamoxifen (NOLVADEX) 20 mg tablet Take 1 Tab by mouth daily for 90 days. 90 Tab 3 04/30/2020 07/29/2020 documented in this encounter Miscellaneous Notes * Telephone Encounter - Hardy Yancey RN - 04/30/2020 7814 EST Tamoxifen 20mg, 1 tab daily. Last refilled 03/06/20 #30, 2 refills Peace pt - agree with attached? documented in this encounter Plan of Treatment Upcoming Encounters Date Type Department Care Team (Late st Contact Info) Description 07/21/2024 11:00 EDT Office Visit [facility] Ophthalmology - [address] [phone] Marcial Magaña MD [address] [place] [address] [address] [place] [address] 07/25/2024 11:00 EDT Phlebotomy Only [facility] Hematology & Oncology [address] [phone] Blood Doctor, [facility] Hem Onc 07/25/2024 11:45 EDT Office Visit [facility] Hematology & Oncology [address] [phone] Abebe Ralph MD [address] [place] [address], [address] [place] [address] 07/25/2024 12:30 EDT Appointment [facility] Hematology & Oncology - [address] [phone] 01/03/2025 16:20 EDT Appointment [facility] Breast Imaging Mammography - [address] [phone] documented as of this encounter Visit Diagnoses Not on filedocumented in this encounter Discontinued Medications Medication Sig Discontinue Reason Start Date End Da te tamoxifen (NOLVADEX) 20 mg tablet Take 1 Tab by mouth daily for 90 days. Reorder 03/06/2020 04/30/2020 documented as of this encounter Care Teams Aviation Boatswain'S Mate Relationship Specialty Start Date End Date Skye Hernandez [address] [place] [address] PCP - General 08/11/18 01/02/22 documented as of this encounter
--- OUTSIDE RECORDS SUMMARY | 2024-04-19 08:12 | XMS_ITS | Encounter Summary ---
Author Organization [facility] Address [address] [place] [address] Care Team Providers Care Passenger Solicitor Name Role Phone Skye Hernandez Primary Care Provider [phone] Reason for Visit * Reason Onset Date Comments Appointment Related 04/23/2020 Encounter Details Date Type Department Care Team (Late st Contact Info) Description 04/23/2020 Telephone [facility] Surgical Oncology - [facility] [address] [place] [address] Kimi Deleon MD [address] [place] [phone] Appointment Related Social History Tobacco Use Types [...] encounter Miscellaneous Notes * Telephone Encounter - Jesusita Bates - 04/23/2020 1206 EST Diagnosed w/ breast cancer early August 2017, Dr. San did the Breast surgery. Radiation was [facility], Pt was asigned to Dr. Otero, [facility], Patient is not happy with his care and would like to tranfer care to [facility] pt is current treatment =Tamoxifen. Transfer care to [facility] patient request. documented in this encounter Plan of Treatment Upcoming Encounters Date Type Department Care Team (Late st Contact Info) Description 07/21/2024 11:00 EDT Office Visit [facility] Ophthalmology - [address] [phone] Marcial Magaña MD [address] [place] [address], [facility] [address] [place] [phone] 07/25/2024 11:00 EDT Phlebotomy Only [facility] Hematology & Oncology [address] [phone] Blood Doctor, [facility] Hem Onc 07/25/2024 11:45 EDT Office Visit [facility] Hematology & Oncology [address] [phone] Abebe Ralph MD [address] [place] [address], [address] [place] [phone] 07/25/2024 12:30 EDT Appointment [facility] Hematology & Oncology - [address] [phone] 01/03/2025 16:20 EDT Appointment [facility] Breast Imaging Mammography - [address] [phone] documented as of this encounter Visit Diagnoses Not on filedocumented in this encounter Care Teams Passenger Solicitor Relationship Specialty Start Date End Date Skye Hernandez [address] [place] [address] PCP - General 08/11/18 01/02/22 documented as of this encounter
--- OUTSIDE RECORDS SUMMARY | 2024-04-19 08:12 | XMS_ITS | Encounter Summary ---
Author Organization [facility] Address [address] [place] [address] Care Team Providers Care Finish Production Manager Name Role Phone Skye Hernandez Primary Care Provider [phone] Kimi Deleon MD Unavailable [phone] Hannah Batres NP Unavailable [phone] Encounter Details Date Type Department Care Team (Latest Contact Info) Description 09/03/2020 9:21 EDT - 09/03/2020 23:59 EDT Hospital Encounter [facility] Cancer Center Hematology & Oncology - [facility] [address] [place] [address] Estrogen receptor positive status (ER+) (Primary Dx) Discharge Disposition: Home or Self Care Social [...] months. (started 12/16/18 at [facility]) Fish Oil-[place]-3 Fatty Acids 360-1,200 mg capsule 1360mg, 2 [...] Take 1 Tablet by mouth at bedtime. 30 Tablet 2 09/03/2020 1 letrozole (FEMARA) 2.5 mg tablet Take 1 Tab by mouth daily. 90 Tab 4 05/16/2020 2 multivitamin (NEPHROVITE) 0.8 mg tablet Take 1 Tablet by mouth at bedtime. 2 documented as of this encounter Discharge Disposition Disposition Code Departure Means Destination Home or Self Care documented in this encounter Progress Notes * Trinh Hernandez RN - 09/03/2020 1100 EDT Patient presents for Prolia injection. Labs reviewed. She is taking vitamin D and calcium at home. She has no upcoming dental procedures scheduled. Cycle 1, Day 1 Prolia 60 mg given S/Q left arm without incident. Gauze and silicone tape applied to site. Patient Education Topic: Prolia Method: Verbal Taught to: Patient Barriers: None Outcomes: verbalized understanding I was supervised by Dr Birch who was present and immediately available in the office suite. TRINH HERNANDEZ RN 09/03/2020 10:47 documented in this encounter Miscellaneous Notes * Addendum Note - Danya Cook - 09/03/2020 1100 EDTEncounter addended by: Danya Cook on: 09/21/2020 12:01 Actions taken: Charge Capture section accepted documented in this encounter Plan of Treatment Upcoming Encounters Date Type Department Care Team (Late st Contact Info) Description 07/21/2024 11:00 EDT Office Visit [facility] Ophthalmology [address] 704[address] Marcial Magaña MD [address] [place] [address], [facility] [address] [place] [phone] 07/25/2024 11:00 EDT Phlebotomy Only [facility] Hematology & Oncology [address] [phone] Blood Doctor, [facility] Hem Onc 07/25/2024 11:45 EDT Office Visit [facility] Hematology & Oncology [address] [phone] Abebe Ralph MD [address] [place] [address], Level [address] [place] [address] 07/25/2024 12:30 EDT Appointment [facility] Cancer Center Hematology & Oncology - [address] [address] 01/03/2025 16:20 EDT Appointment [facility] Breast Imaging Mammography - [address] [phone] documented as of this encounter Visit Diagnoses [...] mg, subcutaneous, NOW X1, 1 dose, On 09/03/20 at 1045, RoutineIndications:Estrogen receptor positive status (ER+) Given 09/03/2020 10:36 EDT 60 mg Left Arm documented in this encounter Orders Medications Ordered That Trevor ht Not Have Been Administered Count Last Ordered Date First Ordered Date denosumab syringe 60 mg 1 09/03/2020 Appointment Requests Count Last Ordered Date Fi rst Ordered Date ONCBCN INJECTION APPOINTMENT REQUEST 1 08/21 documented in this encounter Care Teams Finish Production Manager Relationship Specialty Start Date End Date Skye Hernandez [address] [place] [address] PCP - General 08/11/18 01/02/22 Kimi Deleon MD [address] [place] [phone] 05/16/20 Hannah Batres NP [address] [place] [address] 05/16/20 documented as of this encounter
--- OUTSIDE RECORDS SUMMARY | 2024-04-19 08:12 | XMS_ITS | Encounter Summary ---
Author Organization [facility] Address [address] [place] [address] Care Team Providers Care Radiologic Technologist Mammogram Name Role Phone Skye Hernandez Primary Care Provider [phone] Kimi Deleon MD Unavailable Hannah Batres NP Unavailable [phone] Encounter Details Date Type Department Care Team (Late st Contact Info) Description 08/30/2020 Orders Only [facility] Cancer Center Hematology & Oncology - Main [place] [address] [place] [address] Katia Bueno, RN Malignant neoplasm of upper-outer quadrant of [...] [facility] Ophthalmology [address] [address] Marcial Mgaaña MD [address] [place] [address] 5 [place] [phone] 07/25/2024 11:00 EDT Phlebotomy Only [facility] Hematology & Oncology [address] [address]221 Blood Doctor, [facility] Hem Onc 07/25/2024 11:45 EDT Office Visit [facility] Hematology & Oncology [address] 554101 Abbee Ralph MD [address] [place] [address] 2 [place] [phone] 07/25/2024 12:30 EDT Appointment [facility] Hematology & Oncology [address] [id number] 01/03/2025 16:20 EDT Appointment [facility] Breast Imaging Mammography - [address] [address] documented as of this encounter Visit Diagnoses Diagnosis Malignant neoplasm of upper-outer quadrant of right breast in female, estrogen receptor positive ([facility])- Primary Encounter for screening mammogram for malignant neoplasm of breast Other screening mammogram documented in this encounter Care Teams Radiologic Technologist Mammogram Relationship Specialty Start Date End Date Skye Hernandez [address] [place] [address] PCP - General 08/11/18 01/02/22 Kimi Deleon MD [address] [place] [address] 05/16/20 Hannah Batres NP [address] [place] [address] 05/16/20 documented as of this encounter
--- OUTSIDE RECORDS SUMMARY | 2024-04-19 08:12 | XMS_ITS | Encounter Summary ---
Author Organization [facility] Address [address] [place] [address] Care Team Providers Care Suede Cleaner Name Role Phone Skye Hernandez Primary Care Provider [phone] Kimi Deleon MD Unavailable [phone] Hannah Batres NP Unavailable [phone] Reason for Visit * Reason Comments Follow-up Encounter Details Date Type Department Care Team (Late st Contact Info) Description 08/21/2020 16:00 EDT Office Visit [facility] Hematology & Oncology - [address] [address] Ivonne Killian MD PhD Malignant [...] Progress Notes * Ivonne Killian MD - 08/21/2020 1600 EDT REASON FOR OFFICE VISIT: Discussion of Survivor Care Plan Anderea is receiving a Survivor Care Plan after therapy for Breast Cancer We reviewed his cancer care team and discussed the cancer characteristics. We reviewed the treatment provided. We discussed late and lingering effects related to the cancer treatment. We reviewed supportive care services. Additionally we reviewed the patient's family history. We discussed follow upscreening suggested and lifestyle recommendations. ASSESSMENT/PLAN: A copy of the survivor care plan is provided to the patient and will be sent to the patients primary care provider. The patient will continue to follow up with her oncologist In addition we discussed consistent sleep. She is tired when she doesn't sleep well. Two of 6 days she is unable to sleep. Celexa has helped with hot flashes. She has problems going back to sleep. She is seeing a therapist. She is trying medical marijuana to help documented in this encounter Plan of Treatment Upcoming Encounters Date Type Department Care Team (Late st Contact Info) Description 07/21/2024 11:00 EDT Office Visit [facility] Ophthalmology - [address] [phone] Marcial Magaña MD [address] [facility], Level [address] [place] [address] 07/25/2024 11:00 EDT Phlebotomy Only [facility] Hematology & Oncology [address] [address] Blood Doctor, [facility] Hem Onc 07/25/2024 11:45 EDT Office Visit [facility] Hematology & Oncology [address] [address] Abebe Ralph MD [address] [place] [address], Level [address] [place] [phone] 07/25/2024 12:30 EDT Appointment [facility] Hematology & Oncology [address] [address] 01/03/2025 16:20 EDT Appointment [facility] Breast Imaging Mammography [address] [address] documented as of this encounter Visit Diagnoses Diagnosis Malignant neoplasm of upper-outer quadrant of right breast in female, estrogen receptor positive ([facility] Primary Encounter for screening mammogram for malignant neoplasm of breast Other screening mammogram documented in this encounter Care Teams Suede Cleaner Relationship Specialty Start Date End Date Skye Hernandez [address] [place] [address] PCP - General 08/11/18 01/02/22 Kimi Deleon MD [address] [place] [phone] 05/16/20 Hannah Batres NP [address] [place] [address] 05/16/20 documented as of this encounter
--- OUTSIDE RECORDS SUMMARY | 2024-04-19 08:12 | XMS_ITS | Encounter Summary ---
Author Organization [facility] Address [address] [place] [address] Care Team Providers Care Inspector Heating And Refrigeration Name Role Phone Skye Hernandez Primary Care Provider Kimi Deleon MD Unavailable Hannah Batres NP Unavailable [phone] Reason for Visit * Reason Comments Follow-up Encounter Details Date Type Department Care Team (Late st Contact Info) Description 08/10/2020 10:30 EDT Office Visit [facility] Ophthalmology - [address] [address] Marcial Magaña MD [address] [facility], Level [address] [place] [address] Social History Tobacco Use Types [...] Progress Notes * Marcial Magaña MD - 08/10/2020 1030 EDT Chief Complaint Patient presents with ??? Follow-up Comments 5 week f/u Wet AMD-Both eyes S/P Eylea #4 Right and Eylea#1 Left (07-06-20) VA stable-Both eyes. No floaters or flashes. No pain HPI Location: Both eyes Pain: 0 - No pain Quality: Blurry Severity: Moderate Duration: Years Timing: Lasts: Continuous Context: VA stable-Both eyes. No floaters or flashes. No pain Modifying factors: S/P Eylea-Both eyes (07-06-20) Associated Signs & Symptoms: Wet AMD-Both eyes; Visual Fluctuations: None Attestation: Base Eye Exam Visual Acuity (Snellen - Linear) Right Left Dist sc 20/40 +2 20/25 -2 Dist ph sc 20/30 -2 Tonometry (Applanation, 10:59) Right Left Pressure 12 12 Neuro/Psych Oriented x3: Yes Mood/Affect: Normal Dilation Both eyes: Phenylephrine 2.5%, Tropicamide 1% @ 10:59 Slit Lamp and Fundus Exam Slit Lamp [...] Scan locations included subfoveal. Notes Right eye : stable PED, no fluid Left eye : decreased PED, decreased SRF sliver Intravitreal Injection, Pharmacologic Agent - OU - Both Eyes Time Out 08/10/2020. 11:51. Confirmed correct patient, procedure, site, and patient consented. Anesthesia Right Eye Topical anesthesia was used. Anesthetic medications included Proparacaine 0.5%, Tetracaine 0.5%. Left Eye Topical anesthesia was used. Anesthetic medications included Proparacaine 0.5%, Tetracaine 0.5%. Procedure Right Eye Preparation included 5% betadine to ocular surface, eyelid speculum. A 30 gauge needle was used. Injection: 2 mg aflibercept 2 mg/0.05 mL UTC: 46929-035-58, Lot: [id number], Expiration date: 2020 Route: intravitreal, Site: Right Eye Left Eye Preparation included 5% betadine to ocular surface. A 30 gauge needle was used. Injection: 2 mg aflibercept 2 mg/0.05 mL NDC: 20666-322-57, Lot: [id number], Expiration date: 11/21/2020 Route: intravitreal, Site: Left Eye Post-op Right [...] both eyes with active choroidal neovascularization([facility]) OCT, RETINA - OU - BOTH EYES INTRAVITREAL INJECTION, PHARMACOLOGIC AGENT - OU - BOTH EYES aflibercept (EYLEA) intravitreal syringe 2 mg aflibercept (EYLEA) intravitreal syringe 2 mg 2. 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 Stable 20/30 vision,??with resolution of SRF??5 weeks s/p Eylea #4 right eye Stable 20/25 vision with decrease in SRF sliver superior to fovea 5 weeks s/p Eylea #1 left eye Offer Eylea both eyes today and??continue every 5 weeks - no additional extension for now?? Patient agrees ?? Nuclear cataract both eyes Not visually significant Observe Return in about 5 weeks (around 09/14/2020), or if symptoms worsen or fail to improve, for both eyes, OCT Macular, Eylea. I have reviewed the past medical, [...] Info) Description 07/21/2024 11:00 EDT Office Visit [facility] Ophthalmology - [address] [phone] Marcial Magaña MD [address] [place] [address] 5 [place] [phone] 07/25/2024 11:00 EDT Phlebotomy Only [facility] Hematology & Oncology - [address] [phone] Blood Doctor, [facility] Hem Onc 07/25/2024 11:45 EDT Office Visit [facility] Hematology & Oncology - [address] [phone] Abebe Ralph MD [address] [place] [address], Level [address] [place] [address] 07/25/2024 12:30 EDT Appointment [facility] Cancer Center Hematology & Oncology - [address] [address] 01/03/2025 16:20 EDT Appointment [facility] Breast Imaging Mammography - [address] [address]131 documented as of this encounter Procedures Procedure Name Priority Date/Time Associated Diagnosis Comments INTRAVITREAL INJECTION, PHARMACOLOGIC AGENT - OU - BOTH EYES Routine 08/10/2020 11:54 EDT Exudative age-related macular degeneration of both eyes with active choroidal neovascularization ([facility]) OCT, RETINA - OU - BOTH EYES Routine 08/10/2020 11:37 EDT Exudative age-related macular degeneration of both eyes with active choroidal neovascularization ([facility]) documented in this encounter Results * INTRAVITREAL INJECTION, PHARMACOLOGIC AGENT - OU - BOTH EYES (08/10/2020 11:54 EDT) Narrative [facility] POINT OF CARE - 08/10/2020 12:50 EDT Time Out 08/10/2020. 11:51. Confirmed correct patient, procedure, site, and patient consented. Anesthesia Right Eye Topical anesthesia was used. Anesthetic medications included Proparacaine 0.5%, Tetracaine 0.5%. Left Eye Topical anesthesia was used. Anesthetic medications included Proparacaine 0.5%, Tetracaine 0.5%. Procedure Right Eye Preparation included 5% betadine to ocular surface, eyelid speculum. A 30 gauge needle was used. Injection: 2 mg aflibercept 2 mg/0.05 mL ??[facility]: 40987-953-01, Lot: [id number], Expiration date: 2020 ??Route: intravitreal, Site: Right Eye Left Eye Preparation included 5% betadine to ocular surface. A 30 gauge needle was used. Injection: 2 mg aflibercept 2 mg/0.05 mL ??[facility]: 44331-934-70, Lot: [id number], Expiration date: 11/21/2020 ??Route: intravitreal, Site: Left Eye Post-op Right [...] PROCEDURES Final Re sult Performing Organization Address [facility] Co de Phone Number [facility] POINT OF CARE * OCT, RETINA - OU - BOTH EYES (08/10/2020 11:37 EDT) Narrative [facility] POINT OF CARE - 08/10/2020 12:50 EDT Right Eye Quality was good. Scan locations included subfoveal. Left Eye Quality was good. Scan locations included subfoveal. Notes Right eye : stable PED, no fluid Left eye : decreased PED, decreased SRF sliver Marcial Magaña MD OPHTH TOMOGRAPHY Final Result Performing Organization Address [facility] Co de Phone Number [facility] documented in this encounter Visit Diagnoses Diagnosis [...] 2 mg 2 mg, intravitreal, Starting on Thu08/10/20 at 1151, Until Thu08/10/20 at 1450, RoutineIndications:Exudative age-related macular degeneration of both eyes with active choroidal neovascularization ([facility]) Given 08/10/2020 11:51 EDT 2 mg Right E ye aflibercept (EYLEA) intravitreal syringe 2 mg 2 mg, intravitreal, Starting on Thu08/10/20 at 1152, Until 08/10/20 at 1450, RoutineIndications:Exudative age-related macular degeneration of both eyes with active choroidal neovascularization ([facility]) Given 08/10/2020 11:52 EDT 2 mg Left Ey e documented in this encounter Orders Medications Ordered That Trevor ht Not Have Been Administered Count Last Ordered Date First Ordered Date aflibercept (EYLEA) intravit real syringe 2 mg 1 08/10/2020 documented in this encounter Eye Exam Visual Acuity (Snellen - Linear) Right eye Left eye Dist sc 20/40 +2 20/25 -2 Dist ph sc 20/30 -2 Tonometry (Applanation, 10:59) Right eye Left eye Pressure 12 12 Neuro/Psych Oriented x3: Yes Mood/Affect: Normal Dilation Both eyes: Phenylephrine 2.5 %, Tropicamide 1% @ 10:59 Slit Lamp Exam Right eye Left eye [...] sions Attached without predisposing lesions Care Teams Inspector Heating And Refrigeration Relationship Specialty Start Date End Date Skye Hernandez [address] [place] [address] PCP - General 08/11/18 01/02/22 Kimi Deleon MD [address] [place] [phone] 05/16/20 Hannah Batres NP [address] [place] [address] 05/16/20 documented as of this encounter
--- OUTSIDE RECORDS SUMMARY | 2024-04-19 08:12 | XMS_ITS | Encounter Summary ---
Author Organization [facility] Address [address] [place] [address] Care Team Providers Care Master [place]al Waters Name Role Phone Skye Hernandez Primary Care Provider [phone] Kimi Deleon MD Unavailable [phone] Hannah Batres NP Unavailable [phone] Reason for Visit * Reason Comments Follow-up Encounter Details Date Type Department Care Team (Late st Contact Info) Description 08/07/2020 16:00 EDT Office Visit [facility] Cancer Center Hematology & Oncology - [address] [address] Ivonne Killian MD PhD Malignant [...] Progress Notes * Ivonne Killian MD - 08/07/2020 1600 EDT This patient participated in the Shared Medical Visit today. documented in this encounter Plan of Treatment Upcoming Encounters Date Type Department Care Team (Late st Contact Info) Description 07/21/2024 11:00 EDT Office Visit [facility] Ophthalmology - [address] [phone] Marcial Magaña MD [address] [place] [address] [address] [place] [phone] 07/25/2024 11:00 EDT Phlebotomy Only [facility] Hematology & Oncology [address] [address] Blood Doctor, [facility] Hem Onc 07/25/2024 11:45 EDT Office Visit [facility] Hematology & Oncology [address] [address] Abebe Ralph MD [address] [place] [address], Level [address] [place] [phone] 07/25/2024 12:30 EDT Appointment [facility] Cancer Center Hematology & Oncology - [address] [phone] 01/03/2025 16:20 EDT Appointment [facility] Breast Imaging Mammography - [address] [address] documented as of this encounter Visit Diagnoses Diagnosis Malignant neoplasm of upper-outer quadrant of right breast in female, estrogen receptor positive ([facility])- Primary Encounter for screening mammogram for malignant neoplasm of breast Other screening mammogram documented in this encounter Care Teams Master [place]al Waters Relationship Specialty Start Date End Date Skye Hernandez [address] [place] [address] PCP - General 08/11/18 01/02/22 Kimi Deleon MD [address] [place] [phone] 05/16/20 Hannah Batres NP [address] [place] [address] 05/16/20 documented as of this encounter
--- OUTSIDE RECORDS SUMMARY | 2024-04-19 08:12 | XMS_ITS | Encounter Summary ---
Author Organization [facility] Address [address] [place] [address] Care Team Providers Care Rv Service Technician Name Role Phone Skye Hernandez Faiza Primary Care Provider [phone] Kimi Deleon MD Unavailable Hannah Batres NP Unavailable [phone] Millie Hilton MD Primary Care Provider [phone] Encounter Details Date Type Department Care Team (Late st Contact Info) Description 05/25/2020 Lab Requisition [facility] Pathology & Laboratory Medicine - [address] [phone] Abebe Ralph MD 111 [facility], [facility] [address] [place] [address] Encounter for other general examination Social History Tobacco Use Types Packs/Day Years [...] Office Visit [facility] Ophthalmology - [address] 215491 Marcial Magaña MD [address] [place] [address], [facility] [address] [place] [phone] 07/25/2024 11:00 EDT Phlebotomy Only [facility] Hematology & Oncology [address] 935111 Blood Doctor, [facility] Hem Onc 07/25/2024 11:45 EDT Office Visit [facility] Hematology & Oncology [address] 113661 Abebe Ralph MD [address] [place] [address], Level [address] [place] [phone] 07/25/2024 12:30 EDT Appointment [facility] Hematology & Oncology [address] 487321 01/03/2025 16:20 EDT Appointment [facility] Breast Imaging Mammography - [address] [address] documented as of this encounter Procedures Procedure Name Priority Date/Time Associated Diagnosis Comments OUTSIDE CASE REVIEW Today 06/06/2020 1 2:38 EDT documented in this encounter Results * OUTSIDE CASE REVIEW (06/06/2020 12:38 EDT) Final Diagnosis OUTSIDE SLIDES [facility] [id number] (7), PROCEDURE DATE 09/01/2018 BREAST, RIGHT, 11 O'CLOCK, 12 CM FROM NIPPLE, CORE NEEDLE BIOPSY: - Adenocarcinoma, invasive, ductal type, nuclear grade II. See comment. [facility] [id number] (12), PROCEDURE DATE 09/21/2018 SUMMARY DIAGNOSIS FOR MALIGNANT BREAST TUMORS AJCC (8th edition): pT1c pN0(sn) Laterality: Right Procedure: Partial mastectomy with sentinel lymph node biopsy Histologic Type: Invasive ductal Tumor Size: 1.8 x 0.8 x 0.5cm Tumor Location: upper outer quadrant [place] Combined Histologic Scores: Tubular differentiation: Score 3 Nuclear pleomorphism: Score 2 Mitotic Rate: Score 1 (actual count less than 1/10 HPF with field diameter of 0.54 mm) Total Score: 6 Overall Grade: 2 (moderate) Invasive margins: Negative (2 mm from closest margin, medial) DCIS: Not identified LVI: Not identified Treatment effect in breast: No known presurgical treatment Lymph nodes: 0/4 (positive/total number examined) [place] nodes: 4 (examined and included in total) 0 nodes with macrometastases 0 nodes with micrometastases 0 nodes with isolated tumor cell clusters only ER/ OR: ER positive (greater than 90%); OR positive (greater than 90%)([id number]) Her2/rich: 0/negative (by immunohistochemistry ([id number]) FINAL PATHOLOGIC DIAGNOSIS [id number]: A. LYMPH NODE, SENTINEL #1, EXCISIONAL BIOPSY: - Three lymph nodes negative for carcinoma (0/3). B. LYMPH NODE, SENTINEL #2, EXCISIONAL BIOPSY: - One lymph node negative for carcinoma (0/1). C. BREAST, RIGHT, UPPER OUTER QUADRANT, 11 O'CLOCK, PARTIAL MASTECTOMY: - Adenocarcinoma, invasive, ductal type, moderately differentiated. See Summary and Comment. - Maximum tumor dimension 1.8 cm (AJCC: pT1c) - Tumor position: 11 o'clock - Surgical resection margins negative for invasive adenocarcinoma. - Tumor present: - 2 mm from superior margin (see part D for final margin status). - 2 mm from medial margin. - 6 mm from inferior margin. - Greater than 1 cm from remaining margins. - Lymphovascular invasion not identified. - Ductal carcinoma in situ not identified. - Prior biopsy site present D. BREAST, RIGHT, NEW SUPERIOR MARGIN, EXCISION: - Benign fibroadipose tissue; negative for carcinoma. - Distance from new to old margin: 6 mm. 15:20 [facility] Diagnosis Comment Review of slides consists of a core needle biopsy ([id number]) collected on 09/01/2018 and a partial mastectomy with sentinel lymph node biopsy ([id number]) performed on 09/21/2018. The core biopsy shows an invasive ductal carcinoma. Prognostics are included for review and show estrogen receptor positive (greater than 90%), progesterone receptor positive (greater than 90%) and Her2/rich negative (0 by immunohistochemistry). The findings in the lumpectomy are summarized above. 15:20 [facility] Attestation By the signature below, the attending physician certifies that they have 1) personally conducted a gross and/or microscopic examination of the described specimen(s), and/or personally interpreted the results of laboratory testing of the described specimen(s), and 2) personally rendered or confirmed the above diagnosis. 15:20 [facility] at 1520 Clinical History Right breast mass 15:20 [facility] Gross Description A. Nineteen slides are received for review from [facility], one each labelled [id number] 1 lvl 1-3, [id number] 1 lvl 4-6, [id number] 2 lvl 1-3, [id number] 2 lvl 4-6, [id number] 2 ER, [id number] 2 PRA, [id number] 2 Her2, NH14-139 A1, UA06-262 A2, LU19-315 B1, CF23-810 C1, [id number] C2, [id number] C3, QL67-907 C4, JN03-883 C5, MZ88-093 C6, SR43-389 D1, CI24-208 D2, FY37-220 D3. B. See part (A). C. See part (A). D. See part (A). E. See part (A). 1 15:20 EDT [facility] Scanned Images 15:20 EDT [facility] ZZUNK ENTIRE BREAST / Unknown 06/06/2020 12:38 EDT 06/06/2020 12:35 EDT ZZUNK DOCUMENTATION PROCEDURE / Unknown 06/06/2020 12:40 EDT 06/06/2020 12:47 EDT ZZUNK DOCUMENTATION PROCEDURE / Unknown 06/06/2020 12:40 EDT 06/06/2020 12:47 EDT ZZUNK DOCUMENTATION PROCEDURE / Unknown 06/06/2020 12:40 EDT 06/06/2020 12:47 EDT ZZUNK DOCUMENTATION PROCEDURE / Unknown 06/06/2020 12:40 EDT 06/06/2020 12:47 EDT us Abebe Ralph MD PATHOLOGY ORDERABLES Final Re sult Performing Organization Address City/State/[facility] Co de Phone Number [facility] [address] [place] [address] documented in this encounter Visit Diagnoses Diagnosis Encounter for other general examination Encounter for screening mammogram for malignant neoplasm of breast Other screening mammogram documented in this encounter Care Teams Rv Service Technician Relationship Specialty Start Date End Date Skye Hernandez [address] [place], [place] [address] PCP - General 08/11/18 01/02/22 Millie Hilton MD [address] [place], [place] [phone] PCP - General 01/03/22 Kimi Deleon MD [address] [place] [phone] 05/16/20 Hannah Batres NP [address] [place], [place] [address] 05/16/20 documented as of this encounter
--- OUTSIDE RECORDS SUMMARY | 2024-04-19 08:12 | XMS_ITS | Encounter Summary ---
Author Organization [facility] Address [address] [place] [address] Care Team Providers Care Purchasing Officer Name Role Phone Skye Hernandez Primary Care Provider [phone] Kimi Deleon MD Unavailable [phone] Hannah Batres NP Unavailable [phone] Reason for Visit * Reason Comments Follow-up Encounter Details Date Type Department Care Team (Late st Contact Info) Description 08/28/2020 16:00 EDT Office Visit [facility] Hematology & Oncology - [address] [address] Ivonne Killian MD PhD Malignant [...] Progress Notes * Ivonne Killian MD - 08/28/2020 1600 EDT This patient participated in the Shared Medical Visit today. documented in this encounter Plan of Treatment Upcoming Encounters Date Type Department Care Team (Late st Contact Info) Description 07/21/2024 11:00 EDT Office Visit [facility] Ophthalmology - [address] [phone] Marcial Magaña MD [address] [place] [address] 5 [place] [phone] 07/25/2024 11:00 EDT Phlebotomy Only [facility] Hematology & Oncology [address] [address] Blood Doctor, [facility] Hem Onc 07/25/2024 11:45 EDT Office Visit [facility] Hematology & Oncology [address] 639[address] Abebe Ralph MD [address] [place] [address], Level [address] [place] [phone] 07/25/2024 12:30 EDT Appointment [facility] Hematology & Oncology - [address] 928341 01/03/2025 16:20 EDT Appointment [facility] Breast Imaging Mammography - [address] [address] documented as of this encounter Visit Diagnoses Diagnosis Malignant neoplasm of upper-outer quadrant of right breast in female, estrogen receptor positive ([facility])- Primary Encounter for screening mammogram for malignant neoplasm of breast Other screening mammogram documented in this encounter Care Teams Purchasing Officer Relationship Specialty Start Date End Date Skye Hernandez [address] [place] [address] PCP - General 08/11/18 01/02/22 Kimi Deleon MD [address] [place] [address] 05/16/20 Hannah Batres NP [address] [place] [address] 05/16/20 documented as of this encounter
--- OUTSIDE RECORDS SUMMARY | 2024-04-19 08:12 | XMS_ITS | Encounter Summary ---
Author Organization [facility] Address [address] [place] [address] Care Team Providers Care Insurance Account Manager Name Role Phone BentleyrenettaSkye Faiza Primary Care Provider [phone] Kimi Deleon MD Unavailable Hannah Batres NP Unavailable [phone] Reason for Visit * Reason Onset Date Comments Appointment Related 08/13/2020 Encounter Details Date Type Department Care Team (Late st Contact Info) Description 08/13/2020 Telephone [facility] Ophthalmology - [address] [address] Marcial Magaña MD 111 [facility], Level [address] [place] [address] Appointment Related Social History Tobacco [...] * Telephone Encounter - Shannan Salas - 08/13/2020 0958 EDT Lmom for pt to call back and schedule next appt. Reminder has been placed documented in this encounter Plan of Treatment Upcoming Encounters Date Type Department Care Team (Late st Contact Info) Description 07/21/2024 11:00 EDT Office Visit [facility] Ophthalmology - [address] [phone] Marcial Magaña MD [address] [place] [address] 5 [place] [phone] 07/25/2024 11:00 EDT Phlebotomy Only [facility] Hematology & Oncology - [address] [phone] Blood Doctor, [facility] Hem Onc 07/25/2024 11:45 EDT Office Visit [facility] Hematology & Oncology [address] [phone] Abebe Ralph MD [address] [place] [address], Level [address] [place] [address] 07/25/2024 12:30 EDT Appointment [facility] Hematology & Oncology - [address] [address] 01/03/2025 16:20 EDT Appointment [facility] Breast Imaging Mammography - [address] [phone] documented as of this encounter Visit Diagnoses Not on filedocumented in this encounter Care Teams Insurance Account Manager Relationship Specialty Start Date End Date Skye Hernandez [address] [place] [address] PCP - General 08/11/18 01/02/22 Kimi Deleon MD [address] [place] [phone] 05/16/20 Hannah Batres NP [address] [place] [address] 05/16/20 documented as of this encounter
--- OUTSIDE RECORDS SUMMARY | 2024-04-19 08:12 | XMS_ITS | Encounter Summary ---
Author Organization [facility] Address [address] [place] [address] Care Team Providers Care Aircraft Detail Draftsperson Name Role Phone Skye Hernandez Primary Care Provider [phone] Kimi Deleon MD Unavailable Hannah Batres NP Unavailable [phone] Reason for Visit * Reason Onset Date Comments Appointment Related 06/04/2020 Encounter Details Date Type Department Care Team (Late st Contact Info) Description 06/04/2020 Telephone [facility] Hematology & Oncology - [address] [address] Abebe Ralph MD 111 [facility], [facility] [address] [place] [address] Appointment Related Social History Tobacco [...] * Telephone Encounter - Tien Maier - 06/04/2020 1220 EDT Spoke with pt offered labs on and zoom on with pk as he isnt here on fridays. Pt will do labs on when here but wants to see pk live on left PAC# * Telephone Encounter - Sheryl Stack - 06/04/2020 1136 EDT Patient is hoping to move their lab and visit with Dr. Ralph from 07/11, to 07/06. Patient has an appt on campus with Opthamology that day and they have a long commute so are hoping to only come to the campus all on one day. Please call to discuss if possible and reschedule documented in this encounter Plan of Treatment Upcoming Encounters Date Type Department Care Team (Late st Contact Info) Description 07/21/2024 11:00 EDT Office Visit [facility] Ophthalmology - [address] [phone] Marcial Magaña MD [address] [place] [address], Level [address] [place] [phone] 07/25/2024 11:00 EDT Phlebotomy Only [facility] Hematology & Oncology [address] 636331 Blood Doctor, [facility] Hem Onc 07/25/2024 11:45 EDT Office Visit [facility] Hematology & Oncology [address] [phone] Abebe Ralph MD [address] [place] [address], Level [address] [place] [phone] 07/25/2024 12:30 EDT Appointment [facility] Hematology & Oncology [address] [address] 01/03/2025 16:20 EDT Appointment [facility] Breast Imaging Mammography - [address] [address] documented as of this encounter Visit Diagnoses Not on filedocumented in this encounter Care Teams Aircraft Detail Draftsperson Relationship Specialty Start Date End Date Skye Hernandez [address] [place] [address] PCP - General 08/11/18 01/02/22 Kimi Deleon MD [address] [place] [address] 05/16/20 Hannah Batres NP [address] [place], [place] [address] 05/16/20 documented as of this encounter
--- OUTSIDE RECORDS SUMMARY | 2024-04-19 08:12 | XMS_ITS | Encounter Summary ---
Author Organization [facility] Address [address] [place] [address] Care Team Providers Care Application Development Consultant Name Role Phone Skye Hernandez Primary Care Provider Kimi Deleon MD Unavailable Hannah Batres NP Unavailable [phone] Reason for Visit * Reason Comments Telemedicine Video Visit Injections Follow-up Encounter Details Date Type Department Care Team (Late st Contact Info) Description 09/03/2020 10:00 EDT Telemedicine [facility] Cancer Center Hematology & Oncology - [address] [address] Xena Nieves, PATatianaC [address] [facility], [address] 2 [place] [address] Malignant neoplasm of upper-outer quadrant [...] 10:12 EDT documented as of this encounter Last Filed Vital Signs Vital Sign Reading Time Taken Comments Blood Pressure 172/70 09/03/2020 0941 EDT Pulse 43 09/03/2020 0941 EDT Temperature 36.2 ??C (97.1 ??F) 09/03/2020 0941 EDT Respiratory Rate 17 09/03/2020 0941 EDT Oxygen Saturation 100% 09/03/2020 0941 EDT Inhaled Oxygen Concentration - - Weight 69.5 kg (153 lb 3.2 oz) 09/03/2020 0941 E DT Height 163.7 cm (5' 4.45) 09/03/2020 0941 EDT Body Mass Index 25.93 09/03/2020 0941 EDT documented in this encounter [...] End Date citalopram (CELEXA) 10 mg tablet Take 1 Tablet by mouth at bedtime. 30 Tablet 2 09/03/2020 11/27/2020 documented in this encounter Progress Notes * Xena Nievse PA-C - 09/03/2020 1000 EDT The concept of ???Telemedicine?? has been described to the patient.? Patient has been informed of the anticipated benefits and possible risks.? Patient understands the information provided regardingtelemedicine, has had the opportunity to ask questions about this information, and all questions have been answered to patient???s satisfaction. Patient consents for the use of telemedicine in his/her medical care and authorizes the transmission of any relevant medical information to providers and their staff involved in patient???s medical or mental health care. TELEMEDICINE VIDEO VISIT Today's visit was provided through telemedicine video conferencing: The location of the patient : clinic exam room The location of the provider: Home office The following staff and their role did participate in today's encounter visit: Xena Nieves PA-C Zoom ID/ PW: [id number] / [id number] Jeffery Garvey is a 69 y.o.yo female presenting in clinic today for assessment prior to ongoing Prolia herapy, given in the setting of osteoporosis and breast cancer on adjuvant AI therapy Chief Complaint Patient presents with ??? Telemedicine Video Visit ??? Injections ??? Follow-up Problem list: ?? 1. 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 ?A. ??1.8 cm cancer, 0/3 sentinel nodes, grade 2, ER/LA+, HER-2 negative (IHC = 0). ??LVI negative.?Onco-DX = 16. ?B. ??S/B WL is/XRT, 12/09. ?C. ??Adjuvant tamoxifen, 12/09. 1. Severe ongoing vasomotor symptoms. D. Adjuvant femara, 06/10. ?? 1. ??Osteoporosis. ?A. ??Prior therapy with alendronate ??>>??poor tolerance. ?B. ??2-year course of Forteo, completed 09/08. ?C. ??Prolia, 12/09. ?? 2. ??Macular degeneration, wet. ?A. ??Ongoing treatment >>??a flu percept. ?? SUBJECTIVE: The patient presents for another Prolia injection. She tolerates these without major side effect. She continues with much improved hot flashes since changing from tamoxifen to letrozole several months ago. Sleep has still been an issue, but she tells me about 2 weeks ago her son suggested THC, and this is been very effective. She will take a THC coconut oil preparation by mouth at bedtime and her sleep is much improved. She also is taking Celexa, prescribed by Dr. Ralph, I believeboth for hot flashes and to help with sleep. Additionally she started acupuncture probably about 2 months ago. We discussed that it is difficult to know which interventions are most helpful. She is not noticing any major side effects from letrozole although does remark upon a bit of hip stiffness. Nothing that is curtailing her activities; she is very active, walking many miles both days this past weekend. She also is gardening without restriction. REVIEW OF SYSTEMS: I went through a verbal review of symptoms with the patient. I note a somewhat bradycardic heart rate. She denies syncope or irregular heart rhythm. Her blood pressure is a bit high today as well, and we discussed that taking some readings at home would be helpful both for us andher PCP. No breast concerns, and she will be seeing her breast surgeon tomorrow. No cough or shortness of breath. Overall her system review is without acute concerns. Past Medical History: Diagnosis Date ??? Basal cell carcinoma 07/09/2007 Left lower eyelid ??? Breast cancer, right ([facility] ??? Dermatologic disease basal cell on eyelid removed Patient Active Problem List Diagnosis Date Noted ??? Intermediate stage nonexudative age-related macular degeneration of left eye 03/01/2020 ??? Exudative 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 (HCC-CMS) 03/01/2020 ??? Estrogen receptor positive status (ER+) 08/09/2019 ??? Family history of breast cancer 08/09/2019 ??? Malignant neoplasm of upper-outer quadrant of female breast (HCC-CMS) 08/09/2019 ??? Osteoporosis without current pathological fracture 04/06/2017 ??? Personal history of other malignant neoplasm of skin 02/12/2009 ??? Seborrheic keratoses 02/12/2009 Past Surgical History: Procedure Laterality Date ??? AXILLARY NODE DISSECTION Right ??? BREAST BIOPSY Right ??? BREAST LUMPECTOMY Right ??? JOINT REPLACEMENT shoulder repair 2012 ??? MOHS SURGERY 09/09/2007 Left lower eyelid BCC ??? NM SENTINEL NODE IMAGING Right ??? RADIATION THERAPY OF BREAST Right Family History Problem Relation Age of Onset ??? Arthritis Mother ??? Cancer Mother ??? Hypertension Mother ??? Breast Cancer Mother ??? Cancer Father ??? Cancer Sister ??? Macular Degeneration Sister ??? Breast Cancer Sister ??? Macular Degeneration Brother ??? Macular Degeneration Maternal Uncle ??? Glaucoma Neg Hx ??? Blindness Neg Hx Social History Socioeconomic History ??? Marital status: Spouse name: None ??? Number of children: None ??? Years of education: None ??? Highest education level: None Occupational History ??? None Tobacco Use ??? Smoking status: Never Smoker ??? Smokeless tobacco: Never Used Vaping Use ??? Vaping Use: Never used Substance and Sexual Activity ??? Alcohol use: Yes Alcohol/week: 7.0 - 14.0 standard drinks Types: 7 - 14 Glasses of wine per week ??? Drug use: No ??? Sexual activity: None Other Topics Concern ??? None Social History Narrative ??? None Social Determinants of Health Financial Resource Strain: ??? Difficulty of Paying Living Expenses: Food Insecurity: ??? Worried About Running Out of Food in the Last Year: ??? Ran Out of Food in the Last Year: Transportation Needs: ??? Lack of Transportation (Medical): ??? Lack of Transportation (Non-Medical): Physical Activity: ??? Days of Exercise per Week: ??? Minutes of Exercise per Session: Stress: ??? Feeling of Stress : Social Connections: ??? Frequency of Communication with Friends and Family: ??? Frequency of Social Gatherings with Friends and Family: ??? Attends Jew Services: ??? Active Member of Clubs or Organizations: ??? Attends Club or Organization Meetings: ??? Marital Status: Medications Prior to Today's Visit Medication Sig ??? acetaminophen (TYLENOL) 325 mg tablet Take by mouth as needed for Pain. ??? aflibercept (EYLEA) 2 mg/0.05 mL 2 mg by intravitreal route once. ??? cholecalciferol, Vitamin D3, 1,000 unit tablet Take 4,000 Units by mouth daily. ??? citalopram (CELEXA) 10 mg tablet Take 1 Tab by mouth at bedtime. ??? denosumab 60 mg/mL syringe syringe Inject 60 mg into the skin every 6 months. (started 12/16/18 at [facility]) ??? Fish Oil-[place]-3 Fatty Acids (FISH OIL) 360-1,200 mg capsule 1360mg, 2 caps by mouth daily ??? GLYCINE ORAL Take 1,500 mg by mouth at bedtime. ??? Hesperidin-Diosmin 250-650 mg tablet Take by mouth. (Patient not taking: Reported on 09/03/2020) ??? letrozole (FEMARA) 2.5 mg tablet Take 1 Tab by mouth daily. ??? magnesium glycinate-mag oxide 120 mg magnesium capsule Take 240 mg by mouth 2 times daily. ??? multivitamin (NEPHROVITE) 0.8 mg tablet Take 1 Tablet by mouth at bedtime. ??? Multivitamins with Minerals tablet tablet Take 1 Tab by mouth daily. (contains calcium 25 mg, vitamin D 1000 iu) ??? fg-qt-eypopb-gqxl-wedfeh-rc309 (MACULAR HEALTH FORMULA) 5-1-7.5 mg capsule 1 cap(s) orally oncea day (Patient not taking: Reported on 09/03/2020) ??? erdwz-0-fcm-skt-exy-raku oil 1,050 mg(300 mg -675 mg-75 mg) capsule Take by mouth. (Patient nottaking: Reported on 09/03/2020) No facility-administered medications prior to visit. Allergies Allergen Reactions ??? Animal Dander Other reaction(s): Unknown ??? Cat Dander Other reaction(s): Unknown ??? Cats Horses ??? Melatonin Rash Objective: BP (!) 172/70 Pulse (!) 43 Temp 36.2 ??C (97.1 ??F) (Tympanic) Resp 17 Ht 163.7 cm (64.45) Wt 69.5 kg (153 lb 3.2 oz) SpO2 100% BMI 25.93 kg/m?? General appearance: alert, no distress Head: Normocephalic, without obvious abnormality, atraumatic Neurologic: Grossly normal Mental Status: mood and affect appropriate, speech and thought process intact LABORATORY: Today's complete metabolic panel and today CBC are entirely within normal limits. IMAGING: Bilateral mammogram from 08/29/2020 was benign. Breast tissue is noted to have scattered areas of fibroglandular density ASSESSMENT: Breast cancer, with diagnosis and therapy as documented above. Most recently the patient has changed from tamoxifen to letrozole, as of May of this year. Hot flashes are much better. Sleep was still an issue but recently improved with bedtime THC. Patient also is fairly newly on Celexa and has done acupuncture, which may also be contributing to reduced hot flashes and improved sleep. Labs are in range and she is fit to proceed with Prolia today. PLAN: 1. Prolia injection today and ongoing every 6 months, particularly while on aromatase inhibitor. The patient asked about repeat DEXA. Her last bone densitometry was in November 2019. I advised her we generally do not repeat these more often than every 2 years, particularly as she is receiving Prolia, however I defer to Dr. Ralph in view of whether imaging sooner than 2 years might be appropriate. Encouraged weightbearing exercise, calcium, and vitamin D. 2. Continue daily letrozole 3. Follow-up with surgical oncology, Dr. San, due tomorrow. The patient believes this will be changed to once a year perhaps discontinued as of tomorrow's visit. 4. Annual mammography due each August. 5. I will schedule a short interval 3-month follow-up with Dr. Ralph. Once the patient has settled into her current regimen, she likely can extend to every 6- month follow-up with this office. She is well aware to contact our office sooner than her scheduled visit with any acute concerns or questions. I was directly supervised by Dr Davy Balderas, who was in the suite and immediately available for the entire time the above documented service was provided. Xena Nieves PA-C 09/03/2020 10:11 documented in this encounter Plan of Treatment Upcoming Encounters Date Type Department Care Team (Late st Contact Info) Description 07/21/2024 11:00 EDT Office Visit [facility] Ophthalmology - [address] [id number] Marcial Magaña MD [address] [place] [address] 5 [place] [phone] 07/25/2024 11:00 EDT Phlebotomy Only [facility] [address] [address] Blood Doctor, [facility] Hem Onc 07/25/2024 11:45 EDT Office Visit [facility] [address] [address] Abebe Ralph MD [address] [place] [address], [facility] 2 [place] [phone] 07/25/2024 12:30 EDT Appointment [facility] [address] [id number] 01/03/2025 16:20 EDT Appointment [facility] Breast Imaging Mammography - [address] [id number] documented as of this encounter Visit Diagnoses Diagnosis Malignant neoplasm of upper-outer quadrant of right breast in female, estrogen receptor positive (HCC-CMS)- Primary Osteoporosis without current pathological fracture, unspecified osteoporosis type Encounter for screening mammogram for malignant neoplasm of breast Other screening mammogram documented in this encounter Discontinued Medications Medication Sig Discontinue Reason Start Date End Da te Hesperidin-Diosmin 250-650 mg tablet Take by mouth. 09/03/2020 ob-oj-patqas-zeax-bilber -hb277 (MACULAR HEALTH FORMULA) 5-1-7.5 mg capsule 1 cap(s) orally once a day 09/03/2020 fhrcl-7-sib-vek-bwk-orsq oil 1,050 mg(300 mg -675 mg-75 mg) capsule Take by mouth. 09/03/2020 citalopram (CELEXA) 10 mg tablet Take 1 Tab by mouth at bedtime. Reorder 07/16/2020 09/03/2020 documented as of this encounter Historical Medications * This list may reflect changes made after this encounter. multivitamin (NEPHROVITE) 0.8 mg tablet Take 1 Tablet by mouth at bedtime. 02/05/2022 added in this encounter Care Teams Application Development Consultant Relationship Specialty Start Date End Date Skye Hernandez [address] [place] [id number] PCP - General 08/11/18 01/02/22 Kimi Deleon MD [address] [place] [address] 05/16/20 Hannah Batres NP [address] [place] [address] 05/16/20 documented as of this encounter
--- OUTSIDE RECORDS SUMMARY | 2024-04-19 08:12 | XMS_ITS | Encounter Summary ---
Author Organization [facility] Address [address] [place] [address] Care Team Providers Care Qual Research Manager Name Role Phone Skye Hernandez Primary Care Provider Kimi Deleon MD Unavailable [phone] Hannah Batres NP Unavailable [phone] Reason for Visit * Reason Onset Date Comments Follow-up 05/25/2020 Encounter Details Date Type Department Care Team (Late st Contact Info) Description 05/25/2020 Telephone [facility] Cancer Center Hematology & Oncology - [facility] [address] [place] [address] Abebe Ralph MD [address] [facility], [facility] 2 [place] [address] Follow-up Social History Tobacco Use Types Packs/Day [...] encounter Miscellaneous Notes * Telephone Encounter - Erik Goldman RN - 05/25/2020 1439 EST Called to clarify we just need reports, not slides. ERIK GOLDMAN RN * Telephone Encounter - Akhil Woodward - 05/25/2020 1338 EST Taylor from [employer] calling to speak with Erik again. documented in this encounter Plan of Treatment Upcoming Encounters Date Type Department Care Team (Late st Contact Info) Description 07/21/2024 11:00 EDT Office Visit [facility] Ophthalmology [address] [phone] Marcial Magaña MD [address] [place] [address], [address] [place] [phone] 07/25/2024 11:00 EDT Phlebotomy Only [facility] Hematology & Oncology [address] [phone] Blood Doctor, [facility] Hem Onc 07/25/2024 11:45 EDT Office Visit [facility] Hematology & Oncology [address] [phone] Abebe Ralph MD [address] [facility], [address] [place] [phone] 07/25/2024 12:30 EDT Appointment [facility] Cancer Center Hematology & Oncology - [facility] [address] [place], [place] [address] 01/03/2025 16:20 EDT Appointment [facility] Breast Imaging Mammography - [facility] [address] [place], [place] [phone] documented as of this encounter Visit Diagnoses Not on filedocumented in this encounter Care Teams Qual Research Manager Relationship Specialty Start Date End Date Skye Hernandez [address] [place] [address] PCP - General 08/11/18 01/02/22 Kimi Deleon MD [address] [place] [address] 05/16/20 Hannah Batres NP [address] [place] [address] 05/16/20 documented as of this encounter
--- OUTSIDE RECORDS SUMMARY | 2024-04-19 08:12 | XMS_ITS | Encounter Summary ---
Author Organization [facility] Address [address] [place] [address] Care Team Providers Care Biomedical Equipment Support Specialist Name Role Phone Skye Hernandez Primary Care Provider [phone] Kimi Deleon MD Unavailable [phone] Hannah Batres NP Unavailable Reason for Referral * Radiology Services (Routine) - Closed Specialty Diagnoses / Procedures Referred By [facility] Referred To Contact Diagnoses Malignant neoplasm of upper-outer quadrant of right breast in female, estrogen receptor positive (HCC-CMS) Procedures MA BREAST SCREENING JOE BILATERAL Abebe Ralph MD Phone: tel: fax: Referral ID Status Reason Start Date Expiration Date Visits Re quested Visits Authorized [id number] Closed 07/11/2020 1 1 Reason for Visit * Reason Comments Follow-up Encounter Details Date Type Department Care Team (Late st Contact Info) Description 07/11/2020 11:30 EDT Office Visit [facility] Hematology & Oncology - [address] [address] Abebe Ralph MD [address] [place] [address], [facility], Level [address] [place] [phone] Estrogen receptor positive status (ER+) (Primary Dx); Malignant neoplasm of upper-outer quadrant of right breast in female, estrogen receptor positive (HCC-CMS); Osteoporosis without current pathological fracture, unspecified osteoporosis [...] 11:55 EDT documented as of this encounter Last Filed Vital Signs Vital Sign Reading Time Taken Comments Blood Pressure 170/80 07/11/2020 1116 EDT Pulse 67 07/11/2020 1116 EDT Temperature 36.2 ??C (97.1 ??F) 07/11/2020 1116 EDT Respiratory Rate 16 07/11/2020 1116 EDT Oxygen Saturation 98% 07/11/2020 1116 EDT Inhaled Oxygen Concentration - - Weight 67.9 kg (149 lb 9.6 oz) 07/11/2020 1116 E DT Height 163.7 cm (5' 4.45) 07/11/2020 1116 EDT Body Mass Index 25.32 07/11/2020 1116 EDT documented in this encounter Functional Status [...] Progress Notes * Abebe Ralph MD - 07/11/2020 1130 EDT Subjective Jeffery Garvey is a 69 y.o. female, who returns in followup for [...] symptoms. D. Adjuvant femara, 06/10. ?? 1. Osteoporosis. A. Prior therapy with alendronate >> poor tolerance. B. 2-year course of Forteo, completed 09/08. C. Prolia, 12/09. ?? 2. Macular degeneration, wet. A. Ongoing treatment >> a flu percept. HPI: Jeffery Garvey returns in follow-up. To summarize, when I seen her for initial consultation inFebruary I recommended she discontinue her tamoxifen which she did and remain off endocrine therapyfor about 4 to 5 weeks. Interestingly she felt that in that timeframe her hot flashes actually got m oderately worse and were disrupting her sleep quite extensively. She then started her adjuvant Femara which was again about 4 to 5 weeks after discontinuation of her tamoxifen and her memory is rightaround that same time interestingly her hot flashes became substantially better. While she was on ta moxifen to review she was probably generally awakening at least 2-4 times/night, she and not been convinced she was awakening due to hot flashes previously but now since she has stopped her tamoxifenshe in retrospect very much thinks this was the case. Currently she feels that she is actually in general sleeping through the night only awakening occasionally at present not with any regularity, and she does not think this is due to hot flashes or night sweats any longer. Thus her sleep she feelsis dramatically better. She has had 1 or 2 bad nights over the last 4 to 5 weeks but that is been about it. Her hot flashes during the daytime are much improved as well, she is currently describing pr obably only a few per day, these are now very short-lived generally less than a minute or 2 and much less intense, overall substantially less than while on tamoxifen. She otherwise has been doing well since I had seen her with no signs or symptoms suggestive of recurrent disease nor any breast complaints. ROS Except as noted above in the HPI, Jeffery Vallebacks full remaining 10 point review of systems, including constitutional, cardiac, pulmonary, GI, /[employer], neurologic, musculoskeletal, HEENT, psychiatric, and endocrine, and [...] skin every 6 months. (started 12/16/[address] [facility]) ??? Fish Oil-[place]-3 Fatty Acids (FISH OIL) 360-1,200 mg capsule 1360mg, 2 caps by mouth daily ??? GLYCINE ORAL Take 1,500 mg by mouth at bedtime. ??? Hesperidin-Diosmin 250-650 mg tablet Take by mouth. ??? letrozole (FEMARA) 2.5 mg tablet Take 1 Tab by mouth daily. (Patient not taking: Reported on 07/11/2020) ??? magnesium glycinate-mag oxide 120 mg magnesium capsule Take 240 mg by mouth 2 times daily. ??? Multivitamins with Minerals tablet tablet Take 1 Tab by mouth daily. (contains calcium 25 mg, vitamin D 1000 iu) ??? cd-xa-uvkoss-mqff-fwhntp-zy811 (MACULAR HEALTH FORMULA) 5-1-7.5 mg capsule 1 cap(s) orally oncea day ??? zdhky-9-zcn-var-phg-blgf oil 1,050 mg(300 mg -675 mg-75 mg) capsule Take by mouth. ??? tamoxifen (NOLVADEX) 20 mg tablet Take 1 Tab by mouth daily for 90 days. (Patient not taking: Reported on 07/06/2020) Vitals: 07/11/20 1116 BP: (!) 170/80 Pulse: 67 Resp: 16 Temp: 36.2 ??C (97.1 ??F) TempSrc: Skin SpO2: 98% Weight: 67.9 kg (149 lb 9.6 oz) Height: 163.7 cm (64.45) Wt Readings from Last 3 Encounters: 07/11/20 67.9 kg (149 lb 9.6 oz) 05/16/20 69.1 kg (152 lb 4.8 oz) 11/25/19 68.5 kg (151 lb) Physical Exam Objective: Jeffery Garvey is [...] edema. Lab Results Component Value Date WBC 5.26 07/06/2020 HGB 12.9 07/06/2020 HCT 39.6 07/06/2020 MCV 95 07/06/2020 PLT 223 07/06/2020 NEUTROABS 2.47 07/06/2020 CALCIUM 9.3 07/06/2020 CO2 26 07/06/2020 AST 34 07/06/2020 ALT 36 (H) 07/06/2020 TBIL <0.5 07/06/2020 CREATININE 0.71 07/06/2020 CALCCA 9.1 07/06/2020 TP 7.0 07/06/2020 K 4.4 07/06/2020 ALKPHOS 46 07/06/2020 LABALBU 4.3 07/06/2020 BUN 21 07/06/2020 CALCGFR 86 07/06/2020 CL 106 07/06/2020 SERGLU 99 07/06/2020 NA 141 07/06/2020 Imaging Assessment & Plan Jeffery Garvey returns in follow-up, now on adjuvant Femara. As noted above she is tolerating this overall well, and she feels substantially better than she was tolerating her tamoxifen. Her hotflashes as a noted above are much improved. As an aside I had discussed with her proceeding with a trial of acupuncture, this is very helpful for some patients in regards to vasomotor symptoms and in fact there is data demonstrating this to be of benefit at present. She actually opted to just proceed with a trial of this this week so she will see how that goes. She has been receiving ongoing Prolia at [facility] for her osteoporosis we will transition that treatment now to here as well, she was scheduled for this at [facility] on 08/14 but will again make arrangements to proceed with this here at present under our care. She will also be due for routine annual screening mammography which will make arrangements for here as well. Follow-up will be scheduled accordingly. Thi had a number ofother questions which were good today that I reviewed, we reviewed in detail vitamin D and calcium supplementation and a few other issues she had further questions about. I spent a total of 50 minutes [...] [facility] Ophthalmology - [address] [id number] Marcial Magaña MD [address] [place] [address], [facility] [address] [place] [phone] 07/25/2024 11:00 EDT Phlebotomy Only [facility] Hematology & Oncology - [address] [address] Blood Doctor, [facility] Hem Onc 07/25/2024 11:45 EDT Office Visit [facility] Hematology & Oncology [address] [id number] Abebe Ralph MD [address] [place] [address], [address] [place] [phone] 07/25/2024 12:30 EDT Appointment [facility] Hematology & Oncology [address] [id number] 01/03/2025 16:20 EDT Appointment [facility] Breast Imaging Mammography - [address] [address] documented as of this encounter Results * [...] (ER+)- Primary Estrogen receptor positive status [ER+] Malignant neoplasm of upper-outer quadrant of right breast in female, estrogen receptor positive (HCC-CMS) Osteoporosis without current pathological fracture, unspecified osteoporosis type Malignant neoplasm of upper-outer quadrant of right breast in female, estrogen receptor positive (HCC-CMS) Encounter for screening mammogram for malignant neoplasm of breast Other screening mammogram documented in this encounter Historical Medications * This list may reflect changes made after this encounter. aflibercept (EYLEA) 2 mg/0.05 mL 0.05 mL by intravitreal route Once. yhgwu-5-jdt-epa- dpa-fish oil 1,050 mg(300 mg -675 mg-75 mg) capsule Take by mouth. added in this encounter Orders Appointment Requests Count Last Ordered Date Fi rst Ordered Date ONCBCN INJECTION APPOINTMENT REQUEST 1 08/21 documented in this encounter Care Teams Biomedical Equipment Support Specialist Relationship Specialty Start Date End Date Skye Hernandez [address] [place] [address] PCP - General 08/11/18 01/02/22 Kimi Deleon MD [address] [place] [address] 05/16/20 Hannah Batres NP [address] [place] [address] 05/16/20 documented as of this encounter
--- OUTSIDE RECORDS SUMMARY | 2024-04-19 08:12 | XMS_ITS | Encounter Summary ---
Author Organization [facility] Address [address] [place] [address] Care Team Providers Care Cost And Risk Analysis Manager Name Role Phone Skye Hernandez Primary Care Provider Kimi Deleon MD Unavailable Hannah Batres NP Unavailable [phone] Encounter Details Date Type Department Care Team (Late st Contact Info) Description 07/06/2020 12:00 EDT Phlebotomy Only [facility] ED Center 2 Phlebotomy [address] [place], [place] [id number] Tobacco Prevention Health Educator, Acc Phlebotomy Malignant neoplasm of upper-outer quadrant [...] 07/21/2024 11:00 EDT Office Visit [facility] Ophthalmology - [address] [phone] Marcial Magaña MD [address] [place] [address], [facility] [address] [place] [phone] 07/25/2024 11:00 EDT Phlebotomy Only [facility] Hematology & Oncology [address] [phone] Blood Doctor, [facility] Hem Onc 07/25/2024 11:45 EDT Office Visit [facility] Hematology & Oncology [address] [address] Abebe Ralph MD [address] [place] [address], [address] [place] [phone] 07/25/2024 12:30 EDT Appointment [facility] Hematology & Oncology [address] [address] 01/03/2025 16:20 EDT Appointment [facility] Breast Imaging Mammography - [address] [address] documented as of this encounter Procedures Procedure Name Priority Date/Time Associated Diagnosis Comments COMPREHENSIVE METABOLIC PANEL (ONCOLOGY USE ONLY-INC MG) Routine 07/06/2020 14:34 EDT Malignant neoplasm of upper-outer quadrant of right breast in female, estrogen receptor positive (HCC-CMS) COMPLETE BLOOD COUNT AND DIFFERENTIAL Routine 07/06/2020 14:34 EDT Malignant neoplasm of upper-outer quadrant of right breast in female, estrogen receptor positive (HCC-CMS) documented in this encounter Results * (ABNORMAL) COMPREHENSIVE METABOLIC PANEL (ONCOLOGY USE ONLY-INC MG) (07/06/2020 14:34 EDT) Sodium 141 136 - 145 mEq/L 07/06/2020 15:33 [facility] Potassium 4.4 3.5 - 5.0 mEq/L 07/06/2020 15:33 [facility] Chloride 106 96 - 110 mEq/L 07/06/2020 15:33 [facility] CO2 Total 26 22 - 32 mEq/L 07/06/2020 15:33 [facility] Glucose 99 70 - 100 mg/dL 07/06/2020 15:33 [facility] BUN 21 10 - 26 mg/dL 07/06/2020 15:33 [facility] Creatinine 0.71 0.52 - 1.04 mg/dL 07/06/2020 15:33 [facility] eGFR 86 >60 mL/min/1.7 3m2 07/06/2020 15:33 [facility] Comment:eGFR calculated uscompa g CKD-EPI equation for non- Americans. Multiply eGFR by 1.16 for patients. Total Protein 7.0 6.3 - 8.2 g/dL 07/06/2020 15:33 [facility] Albumin 4.3 3.4 - 4.9 g/dL 07/06/2020 15:33 [facility] Alkaline Phosphatase 46 38 - 126 U/L 07/06/2020 15:33 [facility] AST 34 15 - 46 U/L 07/06/2020 15:33 [facility] ALT 36(H) <35 U/L 07/06/2020 15:33 [facility] Bilirubin, Total <0.5 <1.4 mg/dL 07/07/19 15:33 [facility] Calcium 9.3 8.5 - 10.5 mg/dL 07/06/2020 15:33 [facility] Calculated Calcium 9.1 8.5 - 10.5 mg/dL 07/06/2020 15:33 [facility] Magnesium 2.4 1.7 - 2.8 mg/dL 07/06/2020 15:33 [facility] Blood VENOUS BLOOD / Unknown Venipuncture / Unknown 07/06/2020 14:34 EDT 07/06/2020 15:03 EDT Abebe Ralph MD CHEMISTRY & BLOOD GAS ORDERAB LES Final Result [facility] [address] [place] [address] * COMPLETE BLOOD COUNT AND DIFFERENTIAL (07/06/2020 14:34 EDT) WBC 5.26 4.00 - 12.40 K/cmm 07/06/2020 15:10 [facility] RBC 4.17 3.86 - 5.04 M/cmm 07/06/2020 15:10 [facility] Hemoglobin 12.9 11.6 - 15.2 gm/dL 07/06/2020 15:10 [facility] HCT 39.6 34.9 - 44.4 % 07/06/2020 15:10 [facility] MCV 95 81 - 98 fl 07/06/2020 15:10 [facility] MCH 30.9 26.7 - 33.3 pg 07/06/2020 15:10 [facility] MCHC 32.6 32.1 - 35.9 gm/dL 07/06/2020 15:10 [facility] RDW-CV 13.2 <14.7 % 07/06/2020 15:10 [facility] RDW-SD 46.2 <50.4 fl 07/06/2020 15:10 [facility] PLT 223 141 - 377 K/cmm 07/06/2020 15:10 [facility] MPV 12.2 9.5 - 12.7 fl 07/06/2020 15:10 [facility] % Neutrophils 46.9 % 07/06/2020 15:10 [facility] % Lymphocytes 39.7 % 07/06/2020 15:10 [facility] % Monocytes 10.5 % 07/06/2020 15:10 [facility] % Eosinophils 2.1 % 07/06/2020 15:10 [facility] % Basophils 0.6 % 07/06/2020 15:10 [facility] % Immature Grans 0.2 % 07/07/19 15:10 [facility] Absolute Neutrophils 2.47 2.20 - 8.85 K/cmm 07/06/2020 15:10 [facility] Absolute Lymphocytes 2.09 1.09 - 3.30 K/cmm 07/06/2020 15:10 [facility] Absolute Monocytes 0.55 0.10 - 0.80 K/cmm 07/06/2020 15:10 [facility] Absolute Eosinophils 0.11 0.03 - 0.61 K/cmm 07/06/2020 15:10 [facility] ABS Basophils 0.03 0.01 - 0.11 K/cmm 07/06/2020 15:10 [facility] Absolute Immature Grans 0.01 0.00 - 0.06 K/cmm 07/06/2020 15:10 [facility] Type of Differential: Auto 07/06/2020 15:10 [facility] Blood VENOUS BLOOD / Unknown Venipuncture / Unknown 07/06/2020 14:34 EDT 07/06/2020 15:04 EDT us Abebe Ralph MD PACKAGES & DNA PROBE ORDERABL ES Final Result [facility] [address] [place] [address] documented in this encounter Visit Diagnoses Diagnosis Malignant neoplasm of upper-outer quadrant of right breast in female, estrogen receptor positive ([facility]) Encounter for screening mammogram for malignant neoplasm of breast Other screening mammogram documented in this encounter Care Teams Cost And Risk Analysis Manager Relationship Specialty Start Date End Date Skye Hernandez [address] [place] [address] PCP - General 08/11/18 01/02/22 Kimi Deleon MD [address] [place] [phone] 05/16/20 Hannah Batres NP [address] [place] [address] 05/16/20 documented as of this encounter
--- OUTSIDE RECORDS SUMMARY | 2024-04-19 08:12 | XMS_ITS | Encounter Summary ---
Author Organization [facility] Address [address] [place] [address] Care Team Providers Care Nuclear Plant Technical Advisor Name Role Phone Skye Hernandez Primary Care Provider [phone] Kimi Deleon MD Unavailable [phone] Hannah Batres NP Unavailable [phone] Reason for Visit * Reason Onset Date Comments Other 05/23/2020 Health Coaching Encounter Details Date Type Department Care Team (Late st Contact Info) Description 05/23/2020 Telephone [facility] Cancer Center Hematology & Oncology - [address] [address] Abebe Ralph MD [address] [facility], [facility] [address] [place] [address] Other (Health Coaching) Social History Tobacco Use Types Packs/Day Years [...] * Telephone Encounter - Susannah Le - 05/25/2020 1136 EST Spoke with by phone in regard to referral for healthy eating support. Pt reports that she eats a whole foods diet, including lots of vegetables she grows herself, fruit, whole grains,fish, and meat that she raises. She reports that her diet is low car and low sugar. She does not drink alcohol. She drinks one cup of coffee per day. I confirmed that she is meeting recommendations and encouraged her to keep doing what she is doing. reported hot flashes and difficulty sleeping. There is no reason to believe her diet is a factor. She is switching medications to see if that helps. Susannah Le 05/25/2020 11:40 documented in this encounter Plan of Treatment Upcoming Encounters Date Type Department Care Team (Late st Contact Info) Description 07/21/2024 11:[address] [facility] Ophthalmology - [address] [phone] Marcial Magaña MD [address] [place] [address], [address] [place] [phone] 07/25/2024 11:00 EDT Phlebotomy Only [facility] Hematology & Oncology - [address] [address] Blood Doctor, [facility] Hem Onc 07/25/2024 11:45 EDT Office Visit [facility] Hematology & Oncology - [address] [address] Abebe Ralph MD [address] [place] [address], [address] [place] [phone] 07/25/2024 12:30 EDT Appointment [facility] Hematology & Oncology - [address] [address] 01/03/2025 16:20 EDT Appointment [facility] Breast Imaging Mammography - [address] [address] documented as of this encounter Visit Diagnoses Not on filedocumented in this encounter Care Teams Nuclear Plant Technical Advisor Relationship Specialty Start Date End Date Skye Hernandez [address] [place] [address] PCP - General 08/11/18 01/02/22 Kimi Deleon MD [address] [place] [address] 05/16/20 Hannah Batres NP [address] [place] [address] 05/16/20 documented as of this encounter
--- OUTSIDE RECORDS SUMMARY | 2024-04-19 08:12 | XMS_ITS | Encounter Summary ---
Author Organization [facility] Address [address] [place] [address] Care Team Providers Care Prepared Foods Supervisor Name Role Phone Skye Hernandez Primary Care Provider Kimi Deleon MD Unavailable [phone] Hannah Batres NP Unavailable [phone] Encounter Details Date Type Department Care Team (Latest Contact Info) Description 09/03/2020 9:30 EDT Phlebotomy Only [facility] Hematology & Oncology - [facility] [address] [place] [address] Blood Doctor, [facility] Hem Onc Malignant neoplasm of upper-outer quadrant [...] Progress Notes * Brandon Wilburn MA - 09/03/2020 0930 EDT Venipuncture performed for Ralph Per orders of Loree Number of attempts 1 I was supervised by Britany who was present and immediately available in the office suite. BRANDON WILBURN MA 09/03/2020 9:39 documented in this encounter Plan of Treatment Upcoming Encounters Date Type Department Care Team (Late st Contact Info) Description 07/21/2024 11:00 EDT Office Visit [facility] Ophthalmology - [address] [address] Marcial Magaña MD [address] [place] [address], [address] [place] [phone] 07/25/2024 11:00 EDT Phlebotomy Only [facility] Hematology & Oncology [address] [address] Blood Doctor, [facility] Hem Onc 07/25/2024 11:45 EDT Office Visit [facility] Hematology & Oncology - [address] [address] Abebe Ralph MD [address] [facility] Level 2 [place] [address] 07/25/2024 12:30 EDT Appointment [facility] Hematology & Oncology - [address] [phone] 01/03/2025 16:20 EDT Appointment [facility] Breast Imaging Mammography - [address] [phone] documented as of this encounter Procedures Procedure Name Priority Date/Time Associated Diagnosis Comments COMPREHENSIVE METABOLIC PANEL (ONCOLOGY USE ONLY-INC MG) STAT 09/03/2020 9:37 EDT Malignant neoplasm of upper-outer quadrant of right breast in female, estrogen receptor positive (HCC-CMS) COMPLETE BLOOD COUNT AND DIFFERENTIAL STAT 09/03/2020 9:37 EDT Malignant neoplasm of upper-outer quadrant of right breast in female, estrogen receptor positive (HCC-CMS) PHOSPHORUS STAT 09/03/2020 9:37 EDT Malignant neoplasm of upper-outer quadrant of right breast in female, estrogen receptor positive (HCC-CMS) documented in this encounter Results * PHOSPHORUS (09/03/2020 9:37 EDT) Phosphorus 4.2 2.5 - 4.5 mg/dL 09/03/2020 10:[address] [facility] Blood VENOUS BLOOD / Unknown Venipuncture / Unknown 09/03/2020 9:37 EDT 09/03/2020 9:42 EDT us Abebe Ralph MD CHEMISTRY & BLOOD GAS ORDERAB LES Final Result [facility] [address] [place] [address] * (ABNORMAL) COMPREHENSIVE METABOLIC PANEL (ONCOLOGY USE ONLY-INC MG) (09/03/2020 9:37 EDT) Sodium 141 136 - 145 mEq/L 09/03/2020 10:08 [facility] Potassium 4.8 3.5 - 5.0 mEq/L 09/03/2020 10:08 [facility] Chloride 104 96 - 110 mEq/L 09/03/2020 10:08 [facility] CO2 Total 25 22 - 32 mEq/L 09/03/2020 10:08 [facility] Glucose 105(H) 70 - 100 mg/dL 09/03/2020 10:08 [facility] BUN 22 10 - 26 mg/dL 09/03/2020 10:08 [facility] Creatinine 0.72 0.52 - 1.04 mg/dL 09/03/2020 10:08 [facility] eGFR 85 >60 mL/min/1.7 3m2 09/03/2020 10:08 [facility] Comment:eGFR calculated olimpia evans CKD-EPI equation for non- Americans. Multiply eGFR by 1.16 for patients. Total Protein 7.0 6.3 - 8.2 g/dL 09/03/2020 10:08 [facility] Albumin 4.3 3.4 - 4.9 g/dL 09/03/2020 10:08 [facility] Alkaline Phosphatase 42 38 - 126 U/L 09/03/2020 10:08 [facility] AST 30 15 - 46 U/L 09/03/2020 10:08 [facility] ALT 31 <35 U/L 09/03/2020 10:08 [facility] Bilirubin, Total <0.5 <1.4 mg/dL 09/04/19 10:08 [facility] Calcium 9.5 8.5 - 10.5 mg/dL 09/03/2020 10:08 [facility] Calculated Calcium 9.3 8.5 - 10.5 mg/dL 09/03/2020 10:[address] [facility] Magnesium 2.2 1.7 - 2.8 mg/dL 09/03/2020 10:08 [facility] Blood VENOUS BLOOD / Unknown Venipuncture / Unknown 09/03/2020 9:37 EDT 09/03/2020 9:42 EDT us Abebe Ralph MD CHEMISTRY & BLOOD GAS ORDERAB LES Final Result [facility] [address] [place] [address] * COMPLETE BLOOD COUNT AND DIFFERENTIAL (09/03/2020 9:37 EDT) WBC 4.63 4.00 - 12.40 K/cmm 09/03/2020 9:46 [facility] RBC 4.05 3.86 - 5.04 M/cmm 09/03/2020 9:46 [facility] Hemoglobin 12.9 11.6 - 15.2 gm/dL 09/03/2020 9:46 [facility] HCT 39.3 34.9 - 44.4 % 09/03/2020 9:46 [facility] MCV 97 81 - 98 fl 09/03/2020 9:46 [facility] MCH 31.9 26.7 - 33.3 pg 09/03/2020 9:46 [facility] MCHC 32.8 32.1 - 35.9 gm/dL 09/03/2020 9:46 [facility] RDW-CV 13.2 <14.7 % 09/03/2020 9:46 [facility] RDW-SD 47.5 <50.4 fl 09/03/2020 9:46 [facility] PLT 221 141 - 377 K/cmm 09/03/2020 9:46 [facility] MPV 11.1 9.5 - 12.7 fl 09/03/2020 9:46 [facility] % Neutrophils 47.7 % 09/03/2020 9:46 [facility] % Lymphocytes 36.1 % 09/03/2020 9:46 [facility] % Monocytes 11.7 % 09/03/2020 9:46 [facility] % Eosinophils 3.7 % 09/03/2020 9:46 [facility] % Basophils 0.6 % 09/03/2020 9:46 [facility] % Immature Grans 0.2 % 09/04/19 9:46 [facility] Absolute Neutrophils 2.21 2.20 - 8.85 K/cmm 09/03/2020 9:46 [facility] Absolute Lymphocytes 1.67 1.09 - 3.30 K/cmm 09/03/2020 9:46 [facility] Absolute Monocytes 0.54 0.10 - 0.80 K/cmm 09/03/2020 9:46 [facility] Absolute Eosinophils 0.17 0.03 - 0.61 K/cmm 09/03/2020 9:46 [facility] ABS Basophils 0.03 0.01 - 0.11 K/cmm 09/03/2020 9:46 [facility] Absolute Immature Grans 0.01 0.00 - 0.06 K/cmm 09/03/2020 9:46 [facility] Type of Differential: Auto 09/03/2020 9:46 [facility] Blood VENOUS BLOOD / Unknown Venipuncture / Unknown 09/03/2020 9:37 EDT 09/03/2020 9:42 EDT us Abebe Ralph MD PACKAGES & DNA PROBE ORDERABL ES Final Result [facility] [address] [place] [address] documented in this encounter Visit Diagnoses Diagnosis Malignant neoplasm of upper-outer quadrant of right breast in female, estrogen receptor positive (HCC-CMS)- Primary Encounter for screening mammogram for malignant neoplasm of breast Other screening mammogram documented in this encounter Care Teams Prepared Foods Supervisor Relationship Specialty Start Date End Date Skye Hernandez [address] [place] [address] PCP - General 08/11/18 01/02/22 Kimi Deleon MD [address] [place] [phone] 05/16/20 Hannah Batres NP [address] [place] [address] 05/16/20 documented as of this encounter
--- OUTSIDE RECORDS SUMMARY | 2024-04-19 08:12 | XMS_ITS | Encounter Summary ---
Author Organization [facility] Address [address] [place] [address] Care Team Providers Care Dump Truck Operator Name Role Phone Skye Hernandez Primary Care Provider [phone] Reason for Visit * Reason Onset Date Comments Appointment Related 04/19/2020 Encounter Details Date Type Department Care Team (Late st Contact Info) Description 04/19/2020 Telephone [facility] Surgical Oncology - [facility] [address] [place] [address] Danya Lazcano, PA-C [address] [place] [address] [address] [place] [address] Appointment Related Social History Tobacco [...] * Telephone Encounter - Jesusita Bates - 05/09/2020 1600 EST err documented in this encounter Plan of Treatment Upcoming Encounters Date Type Department Care Team (Late st Contact Info) Description 07/21/2024 11:00 EDT Office Visit [facility] Ophthalmology - [address] [phone] Marcial Magaña MD [address] [place] [address], [facility] [address] [place] [phone] 07/25/2024 11:00 EDT Phlebotomy Only [facility] Hematology & Oncology - [address] [address] Blood Doctor, [facility] Hem Onc 07/25/2024 11:45 EDT Office Visit [facility] Hematology & Oncology [address] [phone] Abebe Ralph MD [address] [place] [address], [address] [place] [phone] 07/25/2024 12:30 EDT Appointment [facility] Hematology & Oncology [address] [address] 01/03/2025 16:20 EDT Appointment [facility] Breast Imaging Mammography - [address] [address] documented as of this encounter Visit Diagnoses Not on filedocumented in this encounter Care Teams Dump Truck Operator Relationship Specialty Start Date End Date Skye Hernandez [address] [place] [address] PCP - General 08/11/18 01/02/22 documented as of this encounter
--- OUTSIDE RECORDS SUMMARY | 2024-04-19 08:12 | XMS_ITS | Encounter Summary ---
Author Organization [facility] Address [address] [place] [address] Care Team Providers Care Web Services Professional Name Role Phone Skye Hernandez Primary Care Provider Kimi Deleon MD Unavailable Hannah Batres NP Unavailable [phone] Reason for Visit * Reason Comments Follow-up Encounter Details Date Type Department Care Team (Late st Contact Info) Description 07/06/2020 12:45 EDT Office Visit [facility] Ophthalmology - [address] [address] Marcila Magaña MD 111 [facility], [address] [place] [address] Social History Tobacco Use Types [...] Progress Notes * Marcial Magaña MD - 07/06/2020 1245 EDT Chief Complaint Patient presents with ??? Follow-up Comments Pt here for 5 week f/u-Wet AMD-Right Dry AMD-Left S/P Eylea #3-Right (06-01-2020) VA blurry-Both eyes. Pt needs reading glasses more. Floater-Right longstanding no new. No flashes. No pain HPI Location: Right eye Pain: 0 - No pain Quality: Blurry Severity: Mild Duration: Weeks Timing: Constant Lasts: Continuous Context: VA blurry-Both eyes. Pt needs reading glasses more. Floater-Right longstanding no new. No flashes. No pain Modifying factors: S/P Elyea Right (06-01-2020) Associated Signs & Symptoms: Wet AM-Right Dry AMD-Left Visual Fluctuations: Floaters(Floater-Right longstanding no new) Attestation: Base Eye Exam Visual Acuity (Snellen - Linear) Right Left Dist sc 20/30 20/25 +2 Dist ph sc NI Tonometry (Applanation, 13:01) Right Left Pressure 16 15 Neuro/Psych Oriented x3: Yes Mood/Affect: Normal Dilation Both eyes: Phenylephrine 2.5%, Tropicamide 1% @ 13:01 Slit Lamp and Fundus Exam Slit Lamp [...] Right Eye Quality was good. Progression has improved. Findings include subretinal fluid, pigment epithelial detachment. Left Eye Quality was good. Progression has worsened. Findings include subretinal fluid, pigment epithelial detachment. Notes Stable PED with decrease in SRF sliver right eye. OCT-A: CNVM right eye Increase in PED superior to fovea and new SRF, all this since 06/01/2020 left eye. OCT-A: no visibleCNVM Intravitreal Injection, Pharmacologic Agent - OD - Right Eye Time Out 07/06/2020. 13:28. Confirmed correct patient, procedure, site, and patient consented. Anesthesia Topical anesthesia was used. Anesthetic medications included Proparacaine 0.5%, Tetracaine 0.5%. Procedure Preparation included 5% betadine to ocular surface. A 30 gauge needle was used. Injection: 2 mg aflibercept 2 mg/0.05 mL NDC: 79217-637-58, Lot: [id number], Expiration date: 11/21/2020 Route: intravitreal, Site: Right Eye Post-op Post injection exam found visual acuity of at least counting fingers. The patient tolerated the procedure well. There were no complications. The patient received written and verbal post procedure care education. Post injection medications were not given. Intravitreal Injection, Pharmacologic Agent - OS - Left Eye Time Out 07/06/2020. 14:00. Confirmed correct patient, procedure, site, and patient consented. Anesthesia Topical anesthesia was used. Anesthetic medications included Proparacaine 0.5%, Tetracaine 0.5%, Lidocaine 2%. Procedure Preparation included 5% betadine to ocular surface, eyelid speculum. A 30 gauge needle was used. Injection: 2 mg aflibercept 2 mg/0.05 mL NDC: 87885-963-79, Lot: [id number], Expiration date: 2020 Route: intravitreal, Site: Left Eye Post-op Post injection exam found visual acuity of at least counting fingers. The patient tolerated the procedure well. There were no complications. The patient received written and verbal post procedure care education. DIAGNOSES: 1. Exudative age-related macular degeneration of both eyes with active choroidal neovascularization([facility]) OCT, RETINA - OU - BOTH EYES INTRAVITREAL INJECTION, PHARMACOLOGIC AGENT - OD - RIGHT EYE aflibercept (EYLEA) intravitreal syringe 2 mg INTRAVITREAL INJECTION, PHARMACOLOGIC AGENT - OS - LEFT EYE aflibercept (EYLEA) intravitreal syringe 2 mg 2. Nuclear sclerosis of both eyes Assessment Wet age-related macular degeneration right eye?? Stable 20/30 vision,??with decrease in SUBRETINAL FLUID sliver 5 weeks s/p Eylea Offer Eylea #4 today and??continue every 5 weeks - no additional extension for now?? New evidence of CNVM exudation left eye with increase in PED and new SRF on OCT. Offer Eylea #1 left eye today. ?? NS cataract both eyes Not visually significant Observe Return in about 5 weeks (around 08/10/2020), or if symptoms worsen or fail to improve, for OCT Macular, Eylea, both eyes. I have reviewed the past medical, family, [...] Info) Description 07/21/2024 11:00 EDT Office Visit [facility] Ophthalmology - [address] [address] Marcial Magaña MD 111 [facility], [address] [place] [phone] 07/25/2024 11:00 EDT Phlebotomy Only [facility] Hematology & Oncology - [address] [phone] Blood Doctor, [facility] Hem Onc 07/25/2024 11:45 EDT Office Visit [facility] Hematology & Oncology [address] [address] Abebe Ralph MD 111 [facility] [address] [place] [phone] 07/25/2024 12:30 EDT Appointment [facility] Hematology & Oncology [address] [address] 01/03/2025 16:20 EDT Appointment [facility] Breast Imaging Mammography - [address] [address] documented as of this encounter Procedures Procedure Name Priority Date/Time Associated Diagnosis Comments INTRAVITREAL INJECTION, PHARMACOLOGIC AGENT - OS - LEFT EYE Routine 07/06/2020 14:12 EDT Exudative age-related macular degeneration of both eyes with active choroidal neovascularization (HCC-CMS) INTRAVITREAL INJECTION, PHARMACOLOGIC AGENT - OD - RIGHT EYE Routine 07/06/2020 13:54 EDT Exudative age-related macular degeneration of both eyes with active choroidal neovascularization (HCC-CMS) OCT, RETINA - OU - BOTH EYES Routine 07/06/2020 13:48 EDT Exudative age-related macular degeneration of both eyes with active choroidal neovascularization (HCC-CMS) documented in this encounter Results * INTRAVITREAL INJECTION, PHARMACOLOGIC AGENT - OS - LEFT EYE (07/06/2020 14:12 EDT) Narrative [facility] POINT OF CARE - 07/09/2020 9:33 EDT Time Out 07/06/2020. 14:00. Confirmed correct patient, procedure, site, and patient consented. Anesthesia Topical anesthesia was used. Anesthetic medications included Proparacaine 0.5%, Tetracaine 0.5%, Lidocaine 2%. Procedure Preparation included 5% betadine to ocular surface, eyelid speculum. A 30 gauge needle was used. Injection: 2 mg aflibercept 2 mg/0.05 mL ??NDC: 69322-860-52, Lot: [id number], Expiration date: 2020 ??Route: intravitreal, Site: Left Eye Post-op Post injection exam found visual acuity of at least counting fingers. The patient tolerated the procedure well. There were no complications. The patient received written and verbal post procedure care education. Result [facility] Marcial Magaña MD [facility] PROCED[facility] Final Re sult Performing Organization Address [facility] de Phone Number [facility] POINT OF CARE * INTRAVITREAL INJECTION, PHARMACOLOGIC AGENT - OD - RIGHT EYE (07/06/2020 13:54 EDT) Narrative [facility] POINT OF [facility]ARE - 07/09/2020 9:33 EDT Time Out 07/06/2020. 13:28. Confirmed correct patient, procedure, site, and patient consented. Anesthesia Topical anesthesia was used. Anesthetic medications included Proparacaine 0.5%, Tetracaine 0.5%. Procedure Preparation included 5% betadine to ocular surface. A 30 gauge needle was used. Injection: 2 mg aflibercept 2 mg/0.05 mL ??NDC: 20845-974-08, Lot: [id number], Expiration date: 11/21/2020 ??Route: intravitreal, Site: Right Eye Post-op Post injection exam found visual acuity of at least counting fingers. The patient tolerated the procedure well. There were no complications. The patient received written and verbal post procedure care education. Post injection medications were not given. Marcial Magaña MD [facility] PROCEDURES Final Re sult Performing Organization Address [facility] de Phone Number [facility] POINT OF CARE * OCT, RETINA - OU - BOTH EYES (07/06/2020 13:48 EDT) Narrative [facility] POINT OF CARE - 07/09/2020 9:33 EDT Right Eye Quality was good. Progression has improved. Findings include subretinal fluid, pigment epithelial detachment. Left Eye Quality was good. Progression has worsened. Findings include subretinal fluid, pigment epithelial detachment. Notes Stable PED with decrease in SRF sliver right eye. OCT-A: CNVM right eye Increase in PED superior to fovea and new SRF, all this since 06/01/2020 left eye. 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 (HCC-CMS) Given 07/06/2020 14:12 EDT 2 mg Left Ey e documented in this encounter Orders Medications Ordered That Trevor ht Not Have Been Administered Count Last Ordered Date First Ordered Date aflibercept (EYLEA) intravit real syringe 2 mg 1 07/06/2020 documented in this encounter Eye Exam Visual Acuity (Snellen - Linear) Right eye Left eye Dist sc 20/30 20/25 +2 Dist ph sc NI Tonometry (Applanation, 13:01) Right eye Left eye Pressure 16 15 Neuro/Psych Oriented x3: Yes Mood/Affect: Normal Dilation Both eyes: Phenylephrine 2.5 %, Tropicamide 1% @ 13:01 Slit Lamp Exam Right eye Left eye [...] sions Attached without predisposing lesions Care Teams Web Services Professional Relationship Specialty Start Date End Date Skye Hernandez [address] [place] [address] PCP - General 08/11/18 01/02/22 Kimi Deleon MD [address] [place] [phone] 05/16/20 Hannah Batres NP [address] [place], [place] [address] 05/16/20 documented as of this encounter
--- OUTSIDE RECORDS SUMMARY | 2024-04-19 08:12 | XMS_ITS | Encounter Summary ---
Author Organization [facility] Address [address] [place] [address] Care Team Providers Care Cashier Name Role Phone Skye Hernandez Primary Care Provider [phone] Kimi Deleon MD Unavailable [phone] Hannah Batres NP Unavailable Encounter Details Date Type Department Care Team (Latest Contact Info) Description 07/06/2020 Travel Social History Tobacco Use Types Packs/Day [...] Office Visit [facility] Ophthalmology [address] [phone] Marcial Magaña MD [address] [place] [address] [address] [place] [phone] 07/25/2024 11:00 EDT Phlebotomy Only [facility] Hematology & Oncology [address] [phone] Blood Doctor, [facility] Hem Onc 07/25/2024 11:45 EDT Office Visit [facility] Hematology & Oncology [address] [address] Abebe Ralph MD [address] [place] [address], [facility] [address] [place] [phone] 07/25/2024 12:30 EDT Appointment [facility] Hematology & Oncology [address] [phone] 01/03/2025 16:20 EDT Appointment [facility] Breast Imaging Mammography - [address] [address] documented as of this encounter Visit Diagnoses Not on filedocumented in this encounter Care Teams Cashier Relationship Specialty Start Date End Date Skye Hernandez 4 [facility] [place], [place] [phone] PCP - General 08/11/18 01/02/22 Kimi Deleon MD [address] [place] [address] 05/16/20 Hannah Batres NP [address] [place] [address] 05/16/20 documented as of this encounter
--- OUTSIDE RECORDS SUMMARY | 2024-04-19 08:13 | XMS_ITS | Encounter Summary ---
Author Organization [facility] Address [address] [place] [address] Care Team Providers Care Letter Carrier Name Role Phone Skye Hernandez Primary Care Provider [phone] Reason for Visit * Reason Comments Skin Exam FBSE, h/o BCC. spot of concern R cheek, L eyebrow Encounter Details Date Type Department Care Team (Late st Contact Info) Description 09/29/2018 15:45 EDT Office Visit [facility] Dermatology 3rd Floor [facility] [address] [place] [address] Cameron Garner MD [address] [place] [phone] Seborrheic keratoses (Primary Dx) Discharge Disposition: Auto Discharge Social History Tobacco Use Types Packs/Day Years Used Date Smoking Tobacco: Never Smokeless Tobacco: Never Alcohol Use Standard Drinks/Week Comments Yes 7 (1 standard drink = 0.6 oz pur e alcohol) AUDIT-C Answer Date Recorded Frequency of Alcohol Consumption 4 or more times a week 09/09/2018 Average Number of Drinks 1 or 2 019 Frequency of Binge Drinking Never 08/22 Comments No Sex and Gender Information Value [...] 01/07/2018 8:37 EDT documented in this encounter Discharge Diagnoses Diagnosis L82.1 Other seborrheic keratosis-L82.1[ICD-10-CM] Z85.828 Personal history of other malignant neoplasm of skin-Z85.828[ICD-10-CM] documented in this encounter Discharge Disposition Disposition Code Departure Means Destination Auto Discharge documented in this encounter Progress Notes * Nai Shanks - 09/29/2018 7397 EDT Review of Systems Constitutional: Negative for [...] sleep disturbance. The patient is not nervous/anxious. Nai Shanks 09/29/2018 15:35 * Magda Toussaint - 09/29/2018 9300 EDT Dermatology Outpatient Visit Note Chief Complaint Patient presents with ??? Skin Exam FBSE, h/o BCC. spot of concern R cheek, L eyebrow Dermatologic History: 1. Hx of basal cell carcinoma, left lower eyelid s/p Mohs 2007 Last Dermatology office visit: 11/07 SUBJECTIVE Ms. Garvey is a 67 y.o. female with history of BCC on the left lower eyelid s/p Mohs who presents for spot check. About a month ago, patient got a haircut and her then noticed a spot onher right cheek that patient is concerned about. The lesion is not symptomatic and patient denies tenderness, itch, or spontaneous bleeding. She had her last FBSE October 2017 at which point it was determined that due to her many years of benign skin exams we could see her on an as needed basis instead of continued annual skin checks. No personal or family history of melanoma. 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 For full Medical, Surgical, Family, and Social histories, please see the History section of this encounter in the electronic chart which I have personally reviewed. For Review of Systems, Medications and Allergies, please see those sections of this encounter in the electronic chart which I have also reviewed. She has a current medication list which includes the following prescription(s): acetaminophen, calcium carbonate, lutein, multivitamins with minerals, omega- 3s/dha/epa/fish oil, and UNABLE TO FIND. She is allergic to cats and melatonin. OBJECTIVE VS: There were no vitals taken for this visit. Ms. Garvey is healthy, well developed, well-nourished and in no acute distress female sittingon the examination table with a normal affect. She is alert and oriented to person, place and time.She has Awad type II skin. Cutaneous full body examination including the hair, scalp, face, eyelids, lips, neck, chest, back, abdomen, all four extremities, hands, feet, digits and nails was performed.The examination was normal with the addition of the following comments: -[place] pearly papule with central ulceration on right upper chest -Left lower eyelid with well healed surgical scar -Waxy, stuck-on dark brown verrucous-appearing papules and plaques scattered on face, trunk, and extremities -Right lower leg: ~2cm brown stuck on appearing low plaque ASSESSMENT/PLAN 1. Bug bite vs atypical scar vs superficial BCC/SCC vs melanie k/ lichenoid keratosis on right upper chest -Patient agrees to monitor the lesion on her chest for the next month or so. If the lesion does notheal during that period, she will call us at which point she will likely need a biopsy. 2. Lentigines - Reassure the patient that these are benign lesions due to chronic sun exposure and that no treatment is required - The ABCDEs and wilyly duckling rule of melanoma screening were reviewed with the patient. 3. Seborrheic keratoses: - Patient was reassured of the benign nature of these lesions and that no treatment is required. 4. History of basal cell carcinoma of the left lower eyelid - No visible or palpable evidence of recurrence on today's exam - Due to her many years of benign skin exams we feel comfortable seeing her on an as needed basis. She agrees with this plan and will let us know if anything arises that catches her attention. - The nature of sun-induced photo-aging and skin cancers is discussed. ??Sun avoidance, protective clothing, and the use of 30-SPF sunscreens is advised. Observe closely for skin damage/changes, and call if such occurs. She will f/u as planned or in the interim should problems arise. Magda Breana, MS4 09/29/2018 15:44 Attestation Statement: I was present with the medical student for the history, exam, medical decision making documented by him/her. I have personally performed my own physical exam and medical decision making. I have verified and agree with (or, as indicated, have edited) the medical student's documentation. Cameron Garner MD documented in this encounter Plan of Treatment Upcoming Encounters Date Type Department Care Team (Late st Contact Info) Description 07/21/2024 11:00 EDT Office Visit [facility] Ophthalmology - [address] [phone] Marcial Magaña MD [address] [place] [address], [address] [place] [phone] 07/25/2024 11:00 EDT Phlebotomy Only [facility] Hematology & Oncology [address] 6195[address] Blood Doctor, [facility] Hem Onc 07/25/2024 11:45 EDT Office Visit [facility] Hematology & Oncology - [address] [phone] Abebe Ralph MD 111 [facility] [address] [place] [phone] 07/25/2024 12:30 EDT Appointment [facility] Hematology & Oncology - [address] [id number] 01/03/2025 16:20 EDT Appointment [facility] Breast Imaging Mammography - [address] [id number] documented as of this encounter Visit Diagnoses Diagnosis Seborrheic keratoses- Primary Encounter for screening mammogram for malignant neoplasm of breast Other screening mammogram documented in this encounter Care Teams Letter Carrier Relationship Specialty Start Date End Date Skye Hernandez [address] [place] [address] PCP - General 08/11/18 01/02/22 documented as of this encounter
--- OUTSIDE RECORDS SUMMARY | 2024-04-19 08:13 | XMS_ITS | Encounter Summary ---
Author Organization [facility] Address [address] [place] [address] Care Team Providers Care Pole Sander Operator Name Role Phone Skye Hernandez Primary Care Provider [phone] Reason for Visit * Reason Comments Genetic Evaluation Encounter Details Date Type Department Care Team (Latest Contact Info) Description 10/19/2018 13:00 EDT Office Visit [facility] Hematology & Oncology - [facility] [address] [place], [place] [id number] [place] [address] [place] [phone] Encounter for nonprocreative genetic counseling (Primary Dx); Genetic testing; Malignant neoplasm of breast in female, estrogen receptor positive, unspecified laterality, unspecified site of breast (HCC-CMS); Family history of breast cancer Discharge Disposition: Auto Discharge Social History Tobacco [...] documented in this encounter Discharge Diagnoses Diagnosis C50.919 Malignant neoplasm of unspecified site of unspecified female breast-C50.919[ICD-10-CM] Z80.3 Family history of malignant neoplasm of breast-Z80.3[ICD-10-CM] Z17.0 Estrogen receptor positive status [ER+]-Z17.0[ICD-10-CM] documented in this encounter Discharge Disposition Disposition Code Departure Means Destination Auto Discharge documented in this encounter Progress Notes * Adriana Inman MD, MD - 10/19/2018 1300 EDT This office note has been dictated. * Adriana Inman MD, MD - 10/19/2018 0000 EDT [facility] HEMATOLOGY AND ONCOLOGY NEW PATIENT EVALUATION - 10/19/2018 REASON FOR VISIT: Jeffery is a 67-year-old female with recently diagnosed breast cancer, here to discuss genetic testing based on her personal and family history of malignancy. HISTORY OF PRESENT ILLNESS: Jeffery was found to have an abnormal mammogram in 07/2018. She underwent additional evaluation including a core biopsy, which revealed an invasive malignancy. 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 Zero of 3 sentinel nodes were positive. ER was greater than 90, NV greater than 90 and erbB-2 negative. All margins were negative and there was no lymphovascular invasion. Oncotype DX testing is pending. Jeffery is here by herself. She is a bit anxious due to the rapid nature of her diagnosis and treatment, but her system review is largely negative. She does have some eye issues, but no other new constitutional, cardiovascular, pulmonary, GI, , OCCUPATIONAL THERAPIST, musculoskeletal, psychiatric, neurologic, endocrine or hem symptoms. PAST MEDICAL HISTORY: 1. Breast cancer as outlined above. 2. Osteoporosis diagnosed in 03/2016, for which she has taken 2 years of Forteo. 3. History of a basal cell carcinoma removed in 2008. 4. Rotator cuff repair in 2013. CURRENT MEDICATIONS: Include multivitamins. MENSTRUAL HISTORY: Jeffery began menstruating at age 11. , with her first full-term at age 29. Her last menstrual period was in 1998, and she entered menopause naturally. She did take oral contraceptives for about 5 years. SOCIAL HISTORY: Jeffery is and retired. She lives with her . FAMILY HISTORY: A 4-generation pedigree was constructed. Jeffery has 2 sons, ages 35 and 38. She has4 siblings, one of which was diagnosed with breast cancer in her 40s and in her 50s. There are no other siblings, nieces or nephews with cancer. The patient's mother was diagnosed with breast cancer in her 70s and at 92. She had 2 siblings, neither of whom have cancer. In fact, there are no additional cases of cancer on this side of the family. This side of the family is [place]. On the paternal side of the family, the patient's father had leukemia in his 60s and at69. He had 1 sister who does not appear to be affected by cancer, and there do not appear to be anyadditional cases of cancer on this side of the family. PHYSICAL EXAMINATION: Not performed. IMPRESSION: This is a 67-year-old female diagnosed with a T1N0M0, ER positive, NV positive, erbB-2 negative, moderately-differentiated ductal carcinoma. She has undergone breast-conserving surgery and is awaiting Oncotype DX testing to assess the next steps. She has a sister with early onset breastcancer, a mother with breast cancer, a father with leukemia. We discussed the genetics of cancer aswell as the likelihood of a cancer family syndrome. With 3 cases of breast cancer in this family, there certainly is a reason to consider hereditary breast cancer. Jeffery's sister has , although she is more likely than Jeffery to be harboring a pathogenic mutation in a cancer-associated gene. We did review the risks, benefits and limitations of genetic testing, and after this discussion, we decided to proceed with a STAT 9-gene panel. I did discuss with Jeffery that it would be reasonable regardless of these test results to proceed with breast-conserving surgery, as moving on to bilateral mastectomies may not benefit her in terms of overall survival. Current data suggests that evenwith highly penetrant genes, she may be at increased risk for a second primary breast cancer. However, I reassured her that adjuvant radiation and hormonal therapy would reduce this risk. Additionally, adding screening breast MRI to her annual mammograms has been associated with the identification of tumors at an earlier, more treatable stage. PLAN: 1. Jeffery will have her blood drawn for genetic testing and understands that we will call her with these test results. 2. Jeffery understands that she will return if her test results are positive and, certainly, we willdo this in a timely fashion to assist with her need for radiation therapy and/or desire for bilateral mastectomies. 3. I told Jeffery that I would be happy to see her back to discuss treatment of her osteoporosis, adjuvant therapy, or genetics. Adriana Inman MD 03 01 PM - Adriana Inman MD cn Dictation ID: [id number] documented in this encounter Plan of Treatment Upcoming Encounters Date Type Department Care Team (Late st Contact Info) Description 07/21/2024 11:00 EDT Office Visit [facility] Ophthalmology [address] [address] Marcial Magaña MD [address] [place] [address], [address] [place] [phone] 07/25/2024 11:00 EDT Phlebotomy Only [facility] Hematology & Oncology [address] [phone] Blood Doctor, [facility] Hem Onc 07/25/2024 11:45 EDT Office Visit [facility] Hematology & Oncology [address] [phone] Abebe Ralph MD 111 [facility], [facility], Level [address] [place] [phone] 07/25/2024 12:30 EDT Appointment [facility] Hematology & Oncology - [address] [phone] 01/03/2025 16:20 EDT Appointment [facility] Breast Imaging Mammography - [facility] [address] [place], [place] [address] documented as of this encounter Visit Diagnoses Diagnosis Encounter for nonprocreative genetic counseling- Primary Genetic testing Other investigation and testing for procreative management Malignant neoplasm of breast in female, estrogen receptor positive, unspecified laterality, unspecified site of breast ([facility]) Family history of breast cancer Family history of malignant neoplasm of breast Encounter for screening mammogram for malignant neoplasm of breast Other screening mammogram documented in this encounter Care Teams Pole Sander Operator Relationship Specialty Start Date End Date Skye Hernandez [address] [place] [address] PCP - General 08/11/18 01/02/22 documented as of this encounter
--- OUTSIDE RECORDS SUMMARY | 2024-04-19 08:13 | XMS_ITS | Encounter Summary ---
Author Organization [facility] Address [address] [place] [address] Care Team Providers Care Clinical Documentation Manager Name Role Phone Skye Hernandez Primary Care Provider [phone] Reason for Visit * Reason Onset Date Comments Appointment Related 11/22/2019 Encounter Details Date Type Department Care Team (Late st Contact Info) Description 11/22/2019 Telephone [facility] Endocr[facility]ology - [facility] [address] [place] [address] Ibeth Beavers DO 62 [facility] [address] [place] [address] Appointment Related Social History Tobacco Use Types [...] encounter Miscellaneous Notes * Telephone Encounter - Anabelle Perez - 11/22/2019 1155 EDT LMOM regarding 12/13 bump. Need to reschedule. Offered telephone visit. documented in this encounter Plan of Treatment Upcoming Encounters Date Type Department Care Team (Late st Contact Info) Description 07/21/2024 11:00 EDT [facility] Op[facility] - [address] [phone] Marcial Magaña MD [address] [place] [address], [facility] [address] [place] [phone] 07/25/2024 11:00 EDT Phlebotomy Only [facility] Hematology & Oncology [address] [address] Blood Doctor, [facility] Hem Onc 07/25/2024 11:45 EDT Office Visit [facility] Hematology & Oncology [address] [address] Abebe Ralph MD [address] [place] [address], Level 2 [place] [phone] 07/25/2024 12:30 EDT Appointment [facility] Hematology & Oncology [address] [phone] 01/03/2025 16:20 EDT Appointment [facility] Breast Imaging Mammography - [address] [address] documented as of this encounter Visit Diagnoses Not on filedocumented in this encounter Care Teams Clinical Documentation Manager Relationship Specialty Start Date End Date Skye Hernandez [address] [place] [address] PCP - General 08/11/18 01/02/22 documented as of this encounter
--- OUTSIDE RECORDS SUMMARY | 2024-04-19 08:13 | XMS_ITS | Encounter Summary ---
Author Organization [facility] Address [address] [place] [address] Care Team Providers Care General Passenger Agent Name Role Phone Skye Hernandez Primary Care Provider [phone] Kimi Deleon MD Unavailable Hannah Batres NP Unavailable [phone] Reason for Visit * Reason Onset Date Comments Appointment Related 11/23/2019 12.14.2019 Encounter Details Date Type Department Care Team (Late st Contact Info) Description 11/23/2019 Telephone [facility] Endocrinology - [facility] [address] [place] [address] Ibeth Beavers DO 62 [facility] [address] [place] [address] Appointment Related (12.14.2019) Social History Tobacco Use Types Packs/Day Years [...] encounter Miscellaneous Notes * Telephone Encounter - Mary Washington - 11/23/2019 1346 EDT Per patient, requesting a call back to schedule. Patient received a call to reschedule her 9.[address] Beavers to tele video. Patient is not happy about this as appointment is due to delay because of COVID and this office. Next availability to commercial insurance underwriter was 10.12. Patient wants sooner appt even if it means she needs to see a different provider. Patient is still due to have her bone density 9.23. Patient is requesting a call back today to schedule. documented in this encounter Plan of Treatment Upcoming Encounters Date Type Department Care Team (Late st Contact Info) Description 07/21/2024 11:00 EDT Office Visit [facility] Ophthalmology - [address] [address] Marcial Magaña MD 111 [facility], Level [address] [place] [address] 07/25/2024 11:00 EDT Phlebotomy Only [facility] Hematology & Oncology [address] [address] Blood Doctor, [facility] Hem Onc 07/25/2024 11:45 EDT Office Visit [facility] Hematology & Oncology [address] [address] Abebe Ralph MD [address] [place] [address], [address] [place] [phone] 07/25/2024 12:30 EDT Appointment [facility] Hematology & Oncology [address] [phone] 01/03/2025 16:20 EDT Appointment [facility] Breast Imaging Mammography [address] [address] documented as of this encounter Visit Diagnoses Not on filedocumented in this encounter Care Teams General Passenger Agent Relationship Specialty Start Date End Date Skye Hernandez [address] [place] [address] PCP - General 08/11/18 01/02/22 Kimi Deleon MD [address] [place] [phone] 05/16/20 Hannah Batres NP [address] [place], [place] [address] 05/16/20 documented as of this encounter
--- OUTSIDE RECORDS SUMMARY | 2024-04-19 08:13 | XMS_ITS | Encounter Summary ---
Author Organization [facility] Address [address] [place] [address] Care Team Providers Care Dough Panner Name Role Phone Skye Hernandez Primary Care Provider [phone] Encounter Details Date Type Department Care Team (Late st Contact Info) Description 11/29/2019 Transcribe Orders [facility] Endocrinology - [place] [address] [place] [address] Lidia Kyle V, DO 62 [facility] [address] [place] [address] Social History Tobacco Use Types Packs/Day Years [...] Visit [facility] Ophthalmology - [address] [phone] Marcial Magaña MD [address] [place] [address] 5 [place] [phone] 07/25/2024 11:00 EDT Phlebotomy Only [facility] Hematology & Oncology [address] 3385[address] Blood Doctor, [facility] Hem Onc 07/25/2024 11:45 EDT Office Visit [facility] Hematology & Oncology [address] [address]65[address] Abebe Ralph MD [address] [place] [address], [facility] 2 [place] [phone] 07/25/2024 12:30 EDT Appointment [facility] Hematology & Oncology [address] [phone] 01/03/2025 16:20 EDT Appointment [facility] Breast Imaging Mammography - [address] [phone] documented as of this encounter Visit Diagnoses Not on filedocumented in this encounter Care Teams Dough Panner Relationship Specialty Start Date End Date Skye Hernandez [address] [place] [address] PCP - General 08/11/18 01/02/22 documented as of this encounter
--- OUTSIDE RECORDS SUMMARY | 2024-04-19 08:13 | XMS_ITS | Encounter Summary ---
Author Organization [facility] Address [address] [place] [address] Care Team Providers Care Merchant Mariner Name Role Phone Skye Hernandez Primary Care Provider Reason for Visit * Reason Onset Date Comments Appointment Related 10/14/2018 FCP Appointment Related 10/18/2018 f/up on sche d Encounter Details Date Type Department Care Team (Late st Contact Info) Description 10/14/2018 Telephone [facility] Hematology & Oncology - [address] [address] Fcp, Provider, Appointment Related (FCP); Appointment Related (f/up on sched) Social History Tobacco Use Types Packs/Day Years [...] Miscellaneous Notes * Telephone Encounter - Stephanie Stone - 10/18/2018 0915 EDT Called and spoke to pt to confirm she received my message. Let pt know we could not do 10/21 as hoped, but we did have an opening for 10/19 @12:00PM w/ Nisa Degroot and @1:00PM w/ Dr. Inman. Pt accepted. * Telephone Encounter - Stephanie Stone - 10/14/2018 1148 EDT Called pt and LMOM that due to Dr. Otero's request for urgency on genetic results, we could createtime to see her on 10/21/18. Left pt my direct line and office hours to call me back nba and confirm. documented in this encounter Plan of Treatment Upcoming Encounters Date Type Department Care Team (Late st Contact Info) Description 07/21/2024 11:00 EDT Office Visit [facility] Ophthalmology [address] 1237[address] Marcial Magaña MD [address] [place] [address], Level [address] [place] [phone] 07/25/2024 11:00 EDT Phlebotomy Only [facility] Hematology & Oncology [address] 122491 Blood Doctor, [facility] Hem Onc 07/25/2024 11:45 EDT Office Visit [facility] Hematology & Oncology [address] [phone] Abebe Ralph MD 111 [facility], [facility], Level [address] [place] [phone] 07/25/2024 12:30 EDT Appointment [facility] Hematology & Oncology - [address] [phone] 01/03/2025 16:20 EDT Appointment [facility] Breast Imaging Mammography - [address] [phone] documented as of this encounter Visit Diagnoses Not on filedocumented in this encounter Care Teams Merchant Mariner Relationship Specialty Start Date End Date Skye Hernandez [address] [place] [address] PCP - General 08/11/18 01/02/22 documented as of this encounter
--- OUTSIDE RECORDS SUMMARY | 2024-04-19 08:13 | XMS_ITS | Encounter Summary ---
Author Organization [facility] Address [address] [place] [address] Care Team Providers Care Front Maker Name Role Phone Skye Hernandez Primary Care Provider [phone] Encounter Details Date Type Department Care Team (Latest Contact Info) Description 09/21/2018 11:59 EDT - 09/21/2018 23:59 EDT Hospital Encounter [address] [address] Unknown, Provider, MD Discharge Disposition: Home or Self Care Social [...] Take by mouth as needed for Pain. Multivitamins with Minerals tablet tablet Take 1 Tablet by mouth daily. (contains calcium 25 mg, vitamin D 1000 iu) Calcium Carbonate (TUMS ULTRA) 400 mg calcium (1,000 mg) tablet,chewable Take by mouth as needed. Not regularly 1 Lutein 10 mg tablet Take by mouth daily. [facility] 0 OMEGA-3S/DHA/EPA /FISH OIL (OMEGA 3 ORAL) Take 1,480 mg by mouth daily. (contains vitamin D 1000 iu) 1 UNABLE TO FIND as needed. Med Name: Quick Immune Response 1 documented as of this encounter Discharge Disposition Disposition Code Departure Means Destination Home or Self Half-Way documented in this encounter Plan of Treatment Upcoming Encounters Date Type Department Care Team (Late st Contact Info) Description 07/21/2024 11:00 EDT Office Visit [facility] Ophthalmology [address] [id number] Marcial Magaña MD [address] [place] [address], [facility] [address] [place] [phone] 07/25/2024 11:00 EDT Phlebotomy Only [facility] Hematology & Oncology [address] 149891 Blood Doctor, [facility] Hem Onc 07/25/2024 11:45 EDT Office Visit [facility] Hematology & Oncology [address] [phone] Abebe Ralph MD [address] [place] [address], Level [address] [place] [phone] 07/25/2024 12:30 EDT Appointment [facility] Hematology & Oncology - [facility] [address] [place] [address] 01/03/2025 16:20 EDT Appointment [facility] Breast Imaging Mammography - [address] [address] documented as of this encounter Visit Diagnoses Not on filedocumented in this encounter Care Teams Front Maker Relationship Specialty Start Date End Date Skye Hernandez [address] [place] [address] PCP - General 08/11/18 01/02/22 documented as of this encounter
--- OUTSIDE RECORDS SUMMARY | 2024-04-19 08:13 | XMS_ITS | Encounter Summary ---
Author Organization [facility] Address [address] [place] [address] Care Team Providers Care Acute Care Clinical Nurse Specialist Name Role Phone Skye Hernandez Primary Care Provider [phone] Reason for Referral * Medication Prior Authorization (Routine) - Closed Specialty Diagnoses / Procedures [facility] Referred To Contact Diagnoses Other osteoporosis without current pathological fracture Ibeth Beavers DO Phone: tel: fax: Referral ID Status Reason Start Date Expiration Date Visits Requested Visits Authorized [id number] Closed Medication Prior Authorization 09/05/2019 6 6 Question Answer Medication to be Prior Authorized: Coyia Comments The purpose of this consult request is to inform the scheduling staff that a medication needs to be prior-authorized before it is prescribed and/or administered. Please give at [facility]. Reason for Visit * Reason Onset Date Comments Orders (Non Pre-visit) 09/05/2019 Encounter Details Date Type Department Care Team (Late st Contact Info) Description 09/05/2019 Orders Only [facility] Endocrinology - [facility] [address] [place] [address] Ibeth Beavers DO [address] [facility] [address] [place] [address] Other osteoporosis without current pathological fracture (Primary Dx) Social History Tobacco Use Types [...] documented in this encounter Progress Notes * Rivka Perez - 09/05/2019 1432 EDT Entered [id number] for Prolia documented in this encounter Plan of Treatment Upcoming Encounters Date Type Department Care Team (Late st Contact Info) Description 07/21/2024 11:00 EDT Office Visit [facility] Ophthalmology [address] 965381 Marcial Magaña MD [address] [place] [address], [address] [place] [phone] 07/25/2024 11:00 EDT Phlebotomy Only [facility] Hematology & Oncology [address] [address] Blood Doctor, [facility] Hem Onc 07/25/2024 11:45 EDT Office Visit [facility] Hematology & Oncology - [address] [address] Abebe Ralph MD [address] [facility], [facility], [address] [place] [phone] 07/25/2024 12:30 EDT Appointment [facility] Hematology & Oncology - [address] [address] 01/03/2025 16:20 EDT Appointment [facility] Breast Imaging Mammography - [address] [phone] Scheduled Referrals Name Type Priority Associated Diagnoses Orde r Schedule AMB MEDICATION PRIOR AUTHORIZATION Outpatient Referral Routine Other osteoporosis without current pathological fracture Ordered: 09/05/2019 documented as of this encounter Visit Diagnoses Diagnosis Other osteoporosis without current pathological fracture- Primary Encounter for screening mammogram for malignant neoplasm of breast Other screening mammogram documented in this encounter Care Teams Acute Care Clinical Nurse Specialist Relationship Specialty Start Date End Date Skye Hernandez [address] [place] [address] PCP - General 08/11/18 01/02/22 documented as of this encounter
--- OUTSIDE RECORDS SUMMARY | 2024-04-19 08:13 | XMS_ITS | Encounter Summary ---
Author Organization [facility] Address [address] [place] [address] Care Team Providers Care Deep Fat Fry Cook Name Role Phone Skye Hernandez Primary Care Provider [phone] Reason for Referral * (Routine) - New Request Specialty Diagnoses / Procedures Referred By Contac t Referred To Contact Diagnoses Osteoporosis, unspecified osteoporosis type, unspecified pathological fracture presence Procedures DXA DUAL XRAY ABSORPTIOMETRY FOR BONE DENSITY Roberto Carlos Landin MD Referral ID Status Reason Start Date Expiration Date V isits Requested Visits Authorized [id number] New Request 09/09/2018 1 1 Encounter Details Date Type Department Care Team (Late st Contact Info) Description 09/09/2018 Orders Only [facility] [place] [address] [place], [place] [address] Roberto Carlos Landin MD Osteoporosis, unspecified osteoporosis type, unspecified pathological fracture presence (Primary Dx) Social History Tobacco Use Types [...] Info) Description 07/21/2024 11:00 EDT Office Visit [facility] Ophthalmology - [address] [phone] Marcial Magaña MD [address] [place] [address] [address] [place] [phone] 07/25/2024 11:00 EDT Phlebotomy Only [facility] Hematology & Oncology - [address] 357431 Blood Doctor, [facility] Hem Onc 07/25/2024 11:45 EDT Office Visit [facility] Hematology & Oncology [address] [phone] Abebe Ralph MD [address] [place] [address], [address] [place] [phone] 07/25/2024 12:30 EDT Appointment [facility] Hematology & Oncology [address] [address] 01/03/2025 16:[address] [facility] Breast Imaging Mammography - [address] [address] documented as of this encounter Results * DXA DUAL XRAY ABSORPTIOMETRY FOR BONE DENSITY (09/17/2018 9:46 EDT) DEXA Bone Density [facility] DEXA Bone Density, External [facility] Anatomical Region Laterality Modality Other 09/17/2018 9:46 EDT Roberto Carlos Landin MD IMG DEXA ORDERABLES Final Resul t documented in this encounter Visit Diagnoses Diagnosis Osteoporosis, unspecified osteoporosis type, unspecified pathological fracture presence- Primary Encounter for screening mammogram for malignant neoplasm of breast Other screening mammogram documented in this encounter Care Teams Deep Fat Fry Cook Relationship Specialty Start Date End Date Skye Hernandez [address] [place] [address] PCP - General 08/11/18 01/02/22 documented as of this encounter
--- OUTSIDE RECORDS SUMMARY | 2024-04-19 08:13 | XMS_ITS | Encounter Summary ---
Author Organization [facility] Address [address] [place] [address] Care Team Providers Care Executive Sous Chef Name Role Phone Skye Hernandez Primary Care Provider [phone] Reason for Visit * Reason Onset Date Comments Appointment Related 01/11/2020 Encounter Details Date Type Department Care Team (Late st Contact Info) Description 01/11/2020 Telephone [facility] Endocrinology - [facility] [address] [place] [address] Lidia Kyle DO 62 [facility] [address] [place] [address] Appointment Related Social History Tobacco [...] have Coronavirus / COVID-19? No / Unsure 02/23/2020 15:20 EST documented as of this encounter Functional Status [...] encounter Miscellaneous Notes * Telephone Encounter - Sylwia Franks RN - 02/23/2020 1551 EST Called pt and left message that she was advisedat her telemedicine visit with Dr. Kyle on 12/02/19 to have a follow up appointment Without DXA in 1 year, and a DXA in 2 years. Sylwia Franks RN Endocrinology * Telephone Encounter - Temitope Inman - 01/11/2020 1604 EDT Patient states she received a call to schedule a f/up with Dr. Kyle. States she was told at her last appointment she would be getting her next DXA in two years rather than one next year as well. Please call back with questions. documented in this encounter Plan of Treatment Upcoming Encounters Date Type Department Care Team (Late st Contact Info) Description 07/21/2024 11:00 EDT Office Visit [facility] Ophthalmology [address] [phone] Marcial Magaña MD [address] [place] [address], [address] [place] [phone] 07/25/2024 11:00 EDT Phlebotomy Only [facility] Hematology & Oncology [address] [phone] Blood Doctor, [facility] Hem Onc 07/25/2024 11:45 EDT Office Visit [facility] Hematology & Oncology [address] 249241 Abebe Ralph MD 111 [facility], [facility], [address] [place] [phone] 07/25/2024 12:30 EDT Appointment [facility] Hematology & Oncology - [address] 734491 01/03/2025 16:20 EDT Appointment [facility] Breast Imaging Mammography - [address] [address]181 documented as of this encounter Visit Diagnoses Not on filedocumented in this encounter Care Teams Executive Sous Chef Relationship Specialty Start Date End Date Skye Hernandez [address] [place] [address] PCP - General 08/11/18 01/02/22 documented as of this encounter
--- OUTSIDE RECORDS SUMMARY | 2024-04-19 08:13 | XMS_ITS | Encounter Summary ---
Author Organization [facility] Address [address] [place] [address] Care Team Providers Care Wine Merchant Name Role Phone Skye Hernandez Primary Care Provider [phone] Reason for Visit * Reason Comments Osteoporosis Encounter Details Date Type Department Care Team (Late st Contact Info) Description 11/09/2018 10:00 EDT Office Visit [facility] Endocrinology - [facility] [address] [place] [address] Ibeth Beavers DO 62 [facility] [address] [place] [address] Other osteoporosis without current pathological fracture (Primary Dx) Discharge Disposition: Auto Discharge Social [...] Sign Reading Time Taken Comments Blood Pressure 149/65 11/09/2018 1004 EDT Pulse 52 11/09/2018 1004 EDT Temperature - - Respiratory Rate - - Oxygen Saturation - - Inhaled Oxygen Concentration - - Weight 68.5 kg (151 lb) 11/09/2018 1004 EDT Height 163.6 cm (5' 4.41) 11/09/2018 1004 EDT Body Mass Index 25.59 11/09/2018 1004 EDT documented in this encounter Functional Status [...] documented in this encounter Discharge Diagnoses Diagnosis M81.8 Other osteoporosis without current pathological fracture-M81.8[ICD-10-CM] documented in this encounter Discharge Disposition Disposition Code Departure Means Destination Auto Discharge documented in this encounter Progress Notes * Ibeth Beavers DO - 11/09/2018 1000 EDT The patient is coming in for follow up of osteoporosis. She was last seen in 09/[address] Landin. She has not had any recent falls or fractures. She takes adequate amounts of calcium and vitamin D dailybetween her diet and supplements. She performs regular weight bearing exercise and is quite active.She is steady on her feet and does not fall. Her dental exams are up to date. She completed a two year course of Forteo this year in August. She did not tolerate Alendronate in the past. Her last DXA was performed in 09/08 and showed lumbar spine T-score -3.5, mean femoral neck -2.3 and mean total hip T-score - 1.3. The DXA showed an overall improvement at both sites from her previous exam. She mostly feels well in general. She was diagnosed with breast cancer this year and had a lumpectomy performed. She will also receive chemotherapy and has started radiation. She is overall tolerating the radiation well, she is tired at times. She may finish this course in the next few weeks. At her last visit, a discussion occurred as to whether or not to proceed next with Reclast or Prolia. Shedenies any trouble swallowing, chest pain, palpitations or trouble breathing. There have been no new dental issues. Her bowel movements are normal. The remainder of review of systems is unremarkable. Physical exam: Patient Vitals for the past 24 hrs: BP Pulse Height Weight 11/09/18 1004 (!) 149/65 52 163.6 cm (64.41) 68.5 kg (151 lb) Gen: well developed, gait steady, NAD. HEENT: anicteric sclera, MMM, no abnormal hair or skin changes noted. Neck: supple, no thyromegaly or lymphadenopathy, no JVD. Heart: regular with no murmurs. Lungs: clear anteriorly bilaterally, no wheeze. Abdomen: soft, normoactive bowel sounds, non tender, non distended. Extremities: No peripheral edema, pulses intact, no tremor of hands. Spine: Non tender, no increased kyphosis. Labs: none recent to review. Assessment/Plan: Osteoporosis. We reviewed the pathophysiology of bone loss and the results of the patient's last DXA in detail. We talked about the importance of proper calcium and vitamin D intake along with weight bearing exercise and fall prevention for bone health. We discussed the potential risks and benefits of Reclast vs Prolia. I advised that once started Prolia should not be stopped abruptly as the effects would wear off and fracture risk could increase. At this time, we will proceed with Prolia. She states that it has already been approved by her insurance. We will arrange for thisto be given closer to her home at [facility] in a few weeks. She would like to complete her radiation course first. She will next have a DXA exam performed in one year. She will call sooner with any concerns or change in symptoms. Labs will be tested today including a BMP, I will contact her with the results. She will return in 12 months. Thank you for allowing me to participate in this patient's care. documented in this encounter Plan of Treatment Upcoming Encounters Date Type Department Care Team (Late st Contact Info) Description 07/21/2024 11:00 EDT Office Visit [facility] Ophthalmology - [address] [phone] Marcial Magaña MD [address] [facility], [address] [place] [phone] 07/25/2024 11:00 EDT Phlebotomy Only [facility] Hematology & Oncology [address] [phone] Blood Doctor, [facility] Hem Onc 07/25/2024 11:45 EDT Office Visit [facility] Hematology & Oncology [address] [phone] Abebe Ralph MD 111 [facility], Level [address] [place] [phone] 07/25/2024 12:30 EDT Appointment [facility] Hematology & Oncology [address] [phone] 01/03/2025 16:20 EDT Appointment [facility] Breast Imaging Mammography - [address] [phone] documented as of this encounter Results * BASIC METABOLIC PANEL (BMP) (11/09/2018 10:43 EDT) Sodium 140 136 - 145 mEq/L 11/09/2018 17:06 T [facility] Potassium 4.7 3.5 - 5.0 mEq/L 11/09/2018 17:06 T [facility] Chloride 105 96 - 110 mEq/L 11/09/2018 17:06 T [facility] CO2 27 22 - 32 mEq/L 11/09/2018 17:06 [facility] BUN 17 10 - 26 mg/dl 11/09/2018 17:06 [facility] Creatinine 0.61 0.52 - 1.04 mg/dl 11/09/2018 17:06 [facility] GFR, Calculated 92 >60 ml/min/1.7 3m2 11/09/2018 17:06 EDT [facility] Comment: eGFR calculated using CKD-EPI equation for non Americans. Multiply eGFR by 1.16 for Americans. Calcium 9.8 8.5 - 10.5 mg/dl 11/09/2018 17:06 EDT [facility] Calculated Calcium 9.4 8.5 - 10.5 mg/dl 11/09/2018 17:06 EDT [facility] Glucose, Serum 93 70 - 100 mg/dl 11/09/2018 17:06 T [facility] Fasting? Unknown 11/09/2018 16:42 EDT [facility] Blood specimen (specimen) BLOOD SPECIMEN / Unknown 11/09/2018 10:43 EDT 11/09/2018 16:42 EDT us Ibeth Beavers DO CHEMISTRY & BLOOD GAS ORDERA BLES Final Result Performing Organization Address City/State/[facility] Co de Phone Number [facility] [address] [place] [address] documented in this encounter Visit Diagnoses Diagnosis Other osteoporosis without current pathological fracture- Primary Encounter for screening mammogram for malignant neoplasm of breast Other screening mammogram documented in this encounter Care Teams Wine Merchant Relationship Specialty Start Date End Date Skye Hernandez [address] [place] [address] PCP - General 08/11/18 01/02/22 documented as of this encounter
--- OUTSIDE RECORDS SUMMARY | 2024-04-19 08:13 | XMS_ITS | Encounter Summary ---
Author Organization [facility] Address [address] [place] [address] Care Team Providers Care Automat Car Attendant Name Role Phone Skye Hernandez Primary Care Provider [phone] Reason for Visit * Reason Comments Osteoporosis Encounter Details Date Type Department Care Team (Latest Contact Info) Description 12/02/2019 13:30 EDT Telemedicine [facility] Endocrinology - [facility] [address] [place] [address] Lidia Kyle V, [address] [facility] [address] [place] [address] Osteoporosis, unspecified osteoporosis type, unspecified pathological fracture [...] documented in this encounter Progress Notes * Lidia Kyle DO - 12/02/2019 1330 EDT Images from the original note were not included. The concept of ???Telemedicine?? has been described [...] conferencing: The location of the patient : Home The location of the provider: Office The following staff and their role did participate in today's encounter visit: Lidia Kyle DO Follow-up bone follow-up visit Osteoporosis HISTORY OF PRESENT ILLNESS Jeffery Garvey is a pleasant 69 y.o. female past medical history of breast cancer status post lumpectomy, and radiation currently on a 5-year course of tamoxifen that was started in 2018. Who presents for evaluation of osteoporosis. The patient had a bone density scan performed 11/25/2019. Lumbar spine T score - 3.3, femoral neck T score -2.0, total mean femur T score -1.1. Compared to the last bone density scan in 2019, the bone density the spine is stable and the bone density of the proximal femur has improved since last study. Patient completed a 2-year course of Forteo in August 2018. She did not tolerate alendronate in the past. Was started on Prolia 11/2018, her last dose was July 2019. Due for her third in January. She seems to be tolerating the Prolia. Started the Tamoxifen around the same time however, and she has a difficult time differentiating side effects on the two medications. Does have significant fatigue andlower extremity pain. She describes an uncomfortable achy sensation in her legs. Taking vitamin D 3000 international units daily. She consumes dairy products, green leafy vegetables and nuts for calcium source. She also is calcium and a multivitamin. She has not had a recent vitamin D level. The patient remains very active. She hiked 50 miles this past summer on the long [place]. She walks 2miles a days of the week. She bikes, hikes and gardens. She has lost 14 pounds in the last year. She does not have any issues with her teeth or planned dental work. Denies any difficulty breathing, changes to her stools. She did have a fall while cross-country skiing this winter. Is otherwise stable on her feet. No recent fractures. Past Medical History: Diagnosis Date ??? Basal cell carcinoma 07/09/2007 Left lower eyelid ??? Dermatologic disease basal cell on eyelid removed Past Surgical History: Procedure Laterality Date ??? JOINT REPLACEMENT shoulder repair 2012 ??? MOHS SURGERY 09/09/2007 Left lower eyelid BCC Family History Problem Relation Age of Onset ??? Arthritis Mother ??? Cancer Mother ??? Hypertension Mother ??? Cancer Father ??? Cancer Sister Social History Socioeconomic History ??? Marital status: Spouse name: Not on file ??? Number of children: Not on file ??? Years of education: Not on file ??? Highest education level: Not on file Occupational History ??? Not on file Social Needs ??? Financial resource strain: Not on file ??? Food insecurity Worry: Not on file Inability: Not on file ??? Transportation needs Medical: Not on file Non-medical: Not on file Tobacco Use ??? Smoking status: Never Smoker ??? Smokeless tobacco: Never Used Substance and Sexual Activity ??? Alcohol use: Yes Alcohol/week: 7.0 - 14.0 standard drinks Types: 7 - 14 Glasses of wine per week Frequency: 4 or more times a week Drinks per session: 1 or 2 Binge frequency: Never ??? Drug use: No ??? Sexual activity: Not on file Lifestyle ??? Physical activity Days per week: Not on file Minutes per session: Not on file ??? Stress: Not on file Relationships ??? Social connections Talks on phone: Not on file Gets together: Not on file Attends jewish service: Not on file Active member of club or organization: Not on file Attends meetings of clubs or organizations: Not on file Relationship status: Not on file ??? Intimate partner violence Fear of current or ex partner: Not on file Emotionally abused: Not on file Physically abused: Not on file Forced sexual activity: Not on file Other Topics Concern ??? Not on file Social History Narrative ??? Not on file Current Outpatient Medications on File Prior to Visit Medication Sig Dispense Refill ??? acetaminophen (TYLENOL) 325 mg tablet Take by mouth as needed for Pain. ??? Calcium Carbonate (TUMS ULTRA) 400 mg calcium (1,000 mg) tablet,chewable Take by mouth as needed. Not regularly ??? cholecalciferol, Vitamin D3, 1,000 unit tablet Take 1,000 Units by mouth daily. ??? denosumab 60 mg/mL syringe syringe Inject 60 mg into the skin every 6 months. (started 12/16/18 at [facility]) ??? Fish Oil-Gilberts-3 Fatty Acids (FISH OIL) 360-1,200 mg capsule 1360mg, 2 caps by mouth daily ??? multivitamin (THERAGRAN) per tablet 1 tab(s) orally once a day ??? Multivitamins with Minerals tablet tablet Take 1 Tab by mouth daily. (contains calcium 25 mg, vitamin D 1000 iu) ??? zn-[id number] (MAC[facility]ALTH FORMULA) 5-1-7.5 mg capsule 1 cap(s) orally oncea day ??? OMEGA-3S/DHA/EPA/FISH OIL (OMEGA 3 ORAL) Take 1,480 mg by mouth daily. (contains vitamin D 1000iu) ??? UNABLE TO FIND as needed. Med Name: Quick Immune Response No current facility-administered medications on file prior to visit. Allergies Allergen Reactions ??? Animal Dander Other reaction(s): Unknown ??? Cat Dander Other reaction(s): Unknown ??? Cats Horses ??? Melatonin Rash REVIEW OF SYSTEMS See HPI. VITALS No data found. Exam: Physical exam: Gen: well developed, pleasant, conversant Lungs: Breathing comfortably on RA Neuro: Alert and oriented x3 Psych: Normal affect 10/2018 Creatinine: 0.61 Vitamin D: 23 ASSESSMENT Osteoporosis: We reviewed the pathophysiology of bone loss and the results of the patient's last DXA in detail. Bone density scan shows stability and improvement. Would continue Prolia. Discussed that prolia can be used for up to 10 years but should not be stopped abruptly due to the risk for rebound fractures. We talked about the importance of proper calcium and vitamin D intake along with weight bearing exercise and fall prevention for bone health. She reports that she recently had a metabolic panel prior to her Prolia injection, would obtain laboratory studies from [facility]. We will repeat vitamin D level as last levels found to be low. PLAN - Calcium 1200 mg daily - Vitamin d 3000 IU daily, vitamin D level -Continue Prolia, due for injection #3 January, patient is receiving Prolia injections at [facility] -Follow-up in 1 year, repeat bone marrow density in 2 years Lidia Kyle DO 12/02/2019 13:57 documented in this encounter Plan of Treatment Upcoming Encounters Date Type Department Care Team (Late st Contact Info) Description 07/21/2024 11:00 EDT Office Visit [facility] Ophthalmology - [address] [id number] Marcial Magaña MD [address] [place] [address], [facility] [address] [place] [phone] 07/25/2024 11:00 EDT Phlebotomy Only [facility] Hematology & Oncology - [address] [id number] Blood Doctor, [facility] Hem Onc 07/25/2024 11:45 EDT Office Visit [facility] Hematology & Oncology [address] [phone] Abebe Ralph MD [address] [place] [address], [address] [place] [phone] 07/25/2024 12:30 EDT Appointment [facility] Hematology & Oncology - [address] [id number] 01/03/2025 16:20 EDT Appointment [facility] Breast Imaging Mammography - [address] [address] documented as of this encounter Visit Diagnoses Diagnosis Osteoporosis, unspecified osteoporosis type, unspecified pathological fracture presence- Primary Encounter for screening mammogram for malignant neoplasm of breast Other screening mammogram documented in this encounter Care Teams Automat Car Attendant Relationship Specialty Start Date End Date Skye Hernandez [address] [place] [address] PCP - General 08/11/18 01/02/22 documented as of this encounter
--- OUTSIDE RECORDS SUMMARY | 2024-04-19 08:13 | XMS_ITS | Encounter Summary ---
Author Organization [facility] Address [address] [place] [address] Care Team Providers Care Abstract Searcher Name Role Phone Skye Hernandez Primary Care Provider [phone] Encounter Details Date Type Department Care Team (Latest Contact Info) Description 10/19/2018 13:31 EDT - 10/19/2018 23:59 EDT Hospital Encounter [facility] [address] [place] [address] Ramon Otero MD [address] [place] [address] [address] Discharge Disposition: Auto Discharge Social History Tobacco [...] documented in this encounter Discharge Diagnoses Diagnosis Z80.3 Family history of malignant neoplasm of breast-Z80.3[ICD-10-CM] C50.919 Malignant neoplasm of unspecified site of unspecified female breast-C50.919[ICD-10-CM] documented in this encounter Medications at Time [...] Disposition Code Departure Means Destination Auto Discharge Home documented in this encounter Plan of Treatment Upcoming Encounters Date Type Department Care Team (Late st Contact Info) Description 07/21/2024 11:00 EDT Office Visit [facility] Ophthalmology - [address] [id number] Marcial Magaña MD [address] [place] [address], [address] [place] [phone] 07/25/2024 11:00 EDT Phlebotomy Only [facility] Hematology & Oncology [address] [address] Blood Doctor, [facility] Hem Onc 07/25/2024 11:45 EDT Office Visit [facility] Hematology & Oncology - [facility] [address], [place] [phone] Abebe Ralph MD [address] [facility], [address] [place] [phone] 07/25/2024 12:30 EDT Appointment [facility] Hematology & Oncology [address] [id number] 01/03/2025 16:20 EDT Appointment [facility] Breast Imaging Mammography - [facility] [address], [place] [phone] documented as of this encounter Procedures Procedure Name Priority Date/Time Associated Diagnosis Comments REFERRAL TEST 1 Routine 10/19/2018 13:51 EDT documented in this encounter Results * REFERRAL TEST 1 (10/19/2018 13:51 EDT) Test Name INVITAE BREAST CANCER STAT PANEL 10/19/2018 14:45 EDT [facility] Result See Pathology Scanned Report in EPIC. 11/02/2018 8:56 EDT [facility] Comment:Assayed at [facility] [place], [place] Ref Lab INVITAE 10/19/2018 14:45 EDT [facility] Date Sample Shipped 10/19/18 10/19/2018 14:45 EDT [facility] TOPOGRAPHY UNKNOWN / Unknown 10/19/2018 13:51 EDT 10/19/2018 14:44 EDT Nisa Degroot MS LAB INFO SERVICE AND SUPPORT & PHONE RESULT Final Result [facility] [address] [place] [address] documented in this encounter Visit Diagnoses Not on filedocumented in this encounter Care Teams Abstract Searcher Relationship Specialty Start Date End Date Skye Hernandez [address] [place], [place] [phone] PCP - General 08/11/18 01/02/22 documented as of this encounter
--- OUTSIDE RECORDS SUMMARY | 2024-04-19 08:13 | XMS_ITS | Encounter Summary ---
Author Organization [facility] Address [address] [place] [address] Care Team Providers Care Technical Inspector Name Role Phone Skye Hernandez Faiza Primary Care Provider Kimi Deleon MD Unavailable [phone] Hannah Batres NP Unavailable [phone] Millie Hilton MD Primary Care Provider [phone] Reason for Visit * Reason Onset Date Comments Medication Management 10/07/2018 Encounter Details Date Type Department Care Team (Late st Contact Info) Description 10/07/2018 Telephone [facility] [address] [place] [address] Emma Correa RN Medication Management Social History Tobacco Use Types Packs/Day Years [...] encounter Miscellaneous Notes * Telephone Encounter - Ibeth Beavers Do, DO - 10/27/2018 0939 EDT Noted. * Telephone Encounter - Emma Correa RN - 10/27/2018 0914 EDT Spoke with patient. She said her breast cancer is stage 1, ER+, OH+ and plan is to start radiation Wednesday 11/01, then start Tamoxifen. Scheduled f/u with Dr. Beavers 11/09/18 to discuss if she should start Prolia or Reclast. (She took Forteo 09/02/16-08/30/18. Diagnosed with breast cancer 08/2018; surgery 09/21/18.) * Telephone Encounter - Emma Correa RN - 10/14/2018 1123 EDT ----- Message ----- From: Zaira Scherer Sent: 10/14/2018 9:03 To: Osteoporosis Nurse Pool Subject: Prolia Per Medicare guidelines [place] not req'd BC/BS auth# [id number] valid [facility] 7.17.20 * Telephone Encounter - Emma Correa RN - 10/07/2018 0821 EDT Received msg from pt. Phone connection not good... sounded like surgery 2 weeks ago and oncology appt in 1-2 weeks. I left a msg back reminding her to ask oncologist about starting Prolia. Prior auth was submitted yesterday 10/06 (from 09/09 order), no answer yet from insurance. documented in this encounter Plan of Treatment Upcoming Encounters Date Type Department Care Team (Late st Contact Info) Description 07/21/2024 11:00 EDT Office Visit [facility] Ophthalmology [address] [phone] Marcial Magaña MD [address] [place] [address] [address] [place] [phone] 07/25/2024 11:00 EDT Phlebotomy Only [facility] Hematology & Oncology [address] 805331 Blood Doctor, [facility] Hem Onc 07/25/2024 11:45 EDT Office Visit [facility] Hematology & Oncology [address] [phone] Abebe Ralph MD [address] [place] [address], [address] [place] [phone] 07/25/2024 12:30 EDT Appointment [facility] Hematology & Oncology [address] [address] 01/03/2025 16:20 EDT Appointment [facility] Breast Imaging Mammography - [address] [phone] documented as of this encounter Visit Diagnoses Not on filedocumented in this encounter Care Teams Technical Inspector Relationship Specialty Start Date End Date Skye Hernandez [address] [place], [place] [address] PCP - General 08/11/18 01/02/22 Millie Hilton MD [address] [place] [address] PCP - General 01/03/22 Kimi Deleon MD [address] [place] [phone] 05/16/20 Hannah Batres NP [address] [place] [address] 05/16/20 documented as of this encounter
--- OUTSIDE RECORDS SUMMARY | 2024-04-19 08:13 | XMS_ITS | Encounter Summary ---
Author Organization [facility] Address [address] [place] [address] Care Team Providers Care Pharmacogeneticist Name Role Phone Skye Hernandez Primary Care Provider [phone] Reason for Visit * Reason Comments Follow-up Encounter Details Date Type Department Care Team (Late st Contact Info) Description 03/02/2019 10:30 EST Office Visit [facility] Adult Hematology & Oncology [facility] [place], [place] [phone] Ramon Otero MD [address] [place] [address] [address] [place] [address] Personal history of other malignant neoplasm of skin (Primary Dx) Social History Tobacco Use Types [...] Sign Reading Time Taken Comments Blood Pressure 128/65 03/02/2019 1344 EST Pulse 54 03/02/2019 1344 EST Temperature 36.7 ??C (98.1 ??F) 03/02/2019 1344 EST Respiratory Rate - - Oxygen Saturation 100% 03/02/2019 1344 EST Inhaled Oxygen Concentration - - Weight 69 kg (152 lb 1.9 oz) 03/02/2019 1344 EST Height 162.6 cm (5' 4) 03/02/2019 1344 EST Body Mass Index 26.11 03/02/2019 1344 EST documented in this encounter Functional Status [...] documented in this encounter Progress Notes * Ramon Otero MD - 03/02/2019 1030 EST Oncology follow up Note Patient: Jeffery Garvey : 2030 Date of Service: 03/02/2019 Oncology Problem List:?? 1.??Right breast invasive ductal carcinoma, stage IA. pT1c (1.8 cm), pN0 (sn), M0. ER positive, WA positive HER-2 negative. Histologic grade 2, margins: neg, LVI: neg. ?a- 08/09/2018 screening mammogram category 4, right upper quadrant right breast, nonpalpable lesion. ?b- 08/2018 core biopsy, Dr. San. ?c- 09/21/2018 Lumpectomy and sentinel node biopsy. Dr. San. ?d-10/12/2018 Oncotype DX: RS 16 (low). Referral to Dr. Sagastume ?e- 11/23/18 Completed Adjuvant RT, Dr Sagastume. ?f- 11/24/18 Start Tamoxifen x 5 yr. ? 2.??Family history . ?a- Mother diagnosed with breast cancer in her 70s in her 90s. ?b- Sister diagnosed with breast cancer in her 40s in her mid 50s. ?c- Father of leukemia in his 60s. ?d- Remaining 2 brothers 2 sisters and 2 sons all healthy. ?e- 09/2018 Referral to the [facility] cancer [place]: Genetic results negative for inherited mutations ? 3.??Osteoporosis . ?a- [phone] Forteo. ?b- 08/2018 Spine T score -3.5. - 12/16/18 Start Prolia Q 6m. ? Interim History: Mrs Vasquez come in for 3m f/u. has been on tamoxifen for 3 months with grade 1 hot flashe not limiting quality of life, weakness of the lower extremities which is chronic. No other complaints. Review of Systems Constitutional: Negative. Grade 1 hot flashes not limiting quality of life. HENT: Negative. Eyes: Negative. Respiratory: Negative. Cardiovascular: Negative. Gastrointestinal: Negative. Genitourinary: Negative. Musculoskeletal: Negative. Subjective mild weakness of the lower extremities which she had for many years unchanged in the last 3 months. Skin: Negative. Neurological: Negative. Endo/Heme/Allergies: Negative. Psychiatric/Behavioral: Negative. Medications: Current Outpatient Medications Medication Sig Dispense Refill Last Dose ??? acetaminophen (TYLENOL) 325 mg tablet Take by mouth as needed for Pain. Taking ??? Calcium Carbonate (TUMS ULTRA) 400 mg calcium (1,000 mg) tablet,chewable Take by mouth as needed. Not regularly Not Taking ??? denosumab 60 mg/mL syringe syringe Inject 60 mg into the skin every 6 months. (started 12/16/[address] [facility]) Not Taking ??? Lutein 10 mg tablet Take by mouth daily. [facility] Not Taking ??? Multivitamins with Minerals tablet tablet Take 1 Tab by mouth daily. (contains calcium 25 mg, vitamin D 1000 iu) Taking ??? OMEGA-3S/DHA/EPA/FISH OIL (OMEGA 3 ORAL) Take 1,480 mg by mouth daily. (contains vitamin D 1000iu) Taking ??? tamoxifen (NOLVADEX) 10 mg tablet Take 20 mg by mouth daily. Taking ??? UNABLE TO FIND as needed. Med Name: Quick Immune Response Not Taking No current facility-administered medications for this visit. Allergies Allergen Reactions ??? Cats Horses ??? Melatonin Rash Objective: VS: No data found. Weight: Weight : 69 kg (152 lb 1.9 oz) Height: Ht Readings from Last 1 Encounters: 03/02/19 162.6 cm (64) Physical Exam Constitutional: She is oriented to person, place, and time. She appears well- nourished. No distress. Right breast no palpable masses nipple retraction or discharge, no lymphedema or skin changes. No evidence of local recurrence at the lumpectomy scar. Left breast no palpable masses nipple retraction or discharge. HENT: Head: Normocephalic. Mouth/Throat: Oropharynx is clear and moist. Eyes: Pupils are equal, round, and reactive to light. Conjunctivae are normal. No scleral icterus. Neck: Neck supple. No JVD present. Cardiovascular: Normal rate and normal heart sounds. Pulmonary/Chest: Effort normal and breath sounds normal. Abdominal: Soft. Bowel sounds are normal. Musculoskeletal: Normal range of motion. Lymphadenopathy: She has no cervical adenopathy. Neurological: She is alert and oriented to person, place, and time. Data Review: Labs: Complete Blood Count Chemistries Imaging ; Bilateral screening mammogram 08/09/2018. Assessment & Plan: 1. Right breast invasive ductal carcinoma: No clinical evidence of local recurrence or metastatic disease. On adjuvant tamoxifen for 3 Months, grade 1 hot flashes. Continue for at least 5 years. Plan: - Scheduled to see Dr. San in March - Screening mammogram 08/11/2019 - Follow-up in clinic after the mammogram for physical exam. - Scheduled to see Dr. Sagastume in November 2019. 2. Osteoporosis received first dose of Prolia with no side effects. Has chronic lower extremities fatigue which she attributed to the previous Forteo. On Prolia she has worsening of the symptoms and no new complaints. Plan: - Continue Prolia every 6 months (05/2019) Ramon Otero MD Division of Hematology/Oncology [facility] CC: Dr San, Dr Sagastume, Dr Hernandez,. documented in this encounter Plan of Treatment Upcoming Encounters Date Type Department Care Team (Late st Contact Info) Description 07/21/2024 11:00 EDT Office Visit [facility] Ophthalmology - [address] [phone] Marcial Magaña MD [address] [place] [address], [facility] [address] [place] [phone] 07/25/2024 11:00 EDT Phlebotomy Only [facility] Hematology & Oncology - [address] [address] Blood Doctor, [facility] Hem Onc 07/25/2024 11:45 EDT Office Visit [facility] Hematology & Oncology [address] [address] Abebe Ralph MD [address] [place] [address], [facility] [address] [place] [phone] 07/25/2024 12:30 EDT Appointment [facility] Hematology & Oncology [address] [phone] 01/03/2025 16:20 EDT Appointment [facility] Breast Imaging Mammography - [address] [address] documented as of this encounter Visit Diagnoses Diagnosis Personal history of other malignant neoplasm of skin- Primary Encounter for screening mammogram for malignant neoplasm of breast Other screening mammogram documented in this encounter Historical Medications * This list may reflect changes made after this encounter. tamoxifen (NOLVADEX) 10 mg tablet Take 20 mg by mouth daily. 08/10/2019 added in this encounter Care Teams Pharmacogeneticist Relationship Specialty Start Date End Date Skye Hernandez [address] [place] [address] PCP - General 08/11/18 01/02/22 documented as of this encounter
--- OUTSIDE RECORDS SUMMARY | 2024-04-19 08:13 | XMS_ITS | Encounter Summary ---
Author Organization [facility] Address [address] [place] [address] Care Team Providers Care Lead Java J2Ee Developer Name Role Phone Skye Hernandez Primary Care Provider [phone] Reason for Visit * Reason Onset Date Comments Provider Referred 02/23/2020 Encounter Details Date Type Department Care Team (Late st Contact Info) Description 02/23/2020 Telephone [facility] Ophthalmology - [address] [phone] Marcial Magaña MD [address] [facility], Level 5 [place] [address] Provider Referred Social History Tobacco Use Types Packs/Day Years [...] encounter Miscellaneous Notes * Telephone Encounter - Deborah Hoover - 02/23/2020 0956 EST Jeffery called to check in on referral Dr Jackson at [facility] There has been a change and she is ready to be seen. Deborah Hoover 02/23/2020 9:56 documented in this encounter Plan of Treatment Upcoming Encounters Date Type Department Care Team (Late st Contact Info) Description 07/21/2024 11:00 EDT Office Visit [facility] Ophthalmology [address] [phone] Marcial Magaña MD [address] [place] [address] 5 [place] [phone] 07/25/2024 11:00 EDT Phlebotomy Only [facility] Hematology & Oncology [address] [phone] Blood Doctor, [facility] Hem Onc 07/25/2024 11:45 EDT Office Visit [facility] Hematology & Oncology [address] [phone] Abebe Ralph MD [address] [place] [address], [facility] 2 [place] [phone] 07/25/2024 12:30 EDT Appointment [facility] Hematology & Oncology [address] [address] 01/03/2025 16:20 EDT Appointment [facility] Breast Imaging Mammography - [address] [address] documented as of this encounter Visit Diagnoses Not on filedocumented in this encounter Care Teams Lead Java J2Ee Developer Relationship Specialty Start Date End Date Skye Hernandez [address] [place] [address] PCP - General 08/11/18 01/02/22 documented as of this encounter
--- OUTSIDE RECORDS SUMMARY | 2024-04-19 08:13 | XMS_ITS | Encounter Summary ---
Author Organization [facility] Address [address] [place] [address] Care Team Providers Care Appeals Analyst Name Role Phone Skye Hernandez Primary Care Provider [phone] Reason for Visit * Reason Comments Osteoporosis * (Routine) - New Request Specialty Diagnoses / Procedures Referred By Conteugene t Referred To Contact Diagnoses Osteoporosis, unspecified osteoporosis type, unspecified pathological fracture presence Procedures DXA DUAL XRAY ABSORPTIOMETRY FOR BONE DENSITY Roberto Carlos Landin MD Referral ID Status Reason Start Date Expiration Date V isits Requested Visits Authorized [id number] New Request 09/09/2018 1 1 Encounter Details Date Type Department Care Team (Latest Contact Info) Description 11/25/2019 11:00 EDT Procedure visit [facility] Endocrinology - [address] [phone] Jorgito Garza MD Osteoporosis, unspecified osteoporosis type, unspecified pathological fracture presence; Post-menopausal; Osteoporosis screening; Family history of fracture due to fall; Family history of osteoporosis; Encounter for monitoring denosumab therapy Social History Tobacco Use Types Packs/Day [...] - - Weight 68.5 kg (151 lb) 11/25/2019 1121 EDT Height 163.3 cm (5' 4.29) 11/25/2019 1121 EDT Body Mass Index 25.68 11/25/2019 1121 EDT documented in this encounter Functional Status [...] documented in this encounter Progress Notes * Dee Dee Acosta, RT - 11/25/2019 1100 EDT Procedure Date: 11-25-2019 Referring Physician: Dr Kelsey Kyle DO Previous Scan Date: 09-09-2018 ABN Necessary: No There were no vitals taken for this visit. Done AP SPINE Yes FEMUR Yes TOTAL BODY FOREARM LVA/VFA HEEL US PATIENT HISTORY: Patient Active Problem List Diagnosis ??? Personal history of other malignant neoplasm of skin ??? Seborrheic keratoses ??? Osteoporosis without current pathological fracture ??? Estrogen receptor positive status (ER+) ??? Family history of breast cancer ??? Malignant neoplasm of upper-outer quadrant of female breast (HCC-CMS) Past Medical History: Diagnosis Date ??? Basal cell carcinoma 07/09/2007 Left lower eyelid ??? Dermatologic disease basal cell on eyelid removed Additional Comments: Previous/Prior Comparison? Yes Pharmacologic? Yes [facility] Patient Information Ethnicity/Race: Nutrition and Habits: Do you consume dairy? Yes Number of servings per day? Do you take calcium supplements? Yes Amount? 1000 mg daily Do you drink 3 or more alcoholic beverages daily? No Have you now or have you had in the past an eating disorder? No Do you or have you smoked in the last 6 months? No Family History: Did your mother or father have a hip fracture? NO Do you have a parent or sibling who suffered a broken hip, shoulder, wrist or ribs after age 45? Yes Mother wrist/Hum[place] w/ H/O OSteoprorisis Patient History-Medications: Have you taken any of the following medications or treatments. (Now or in the past)?: Steroid (prednisone, cortisone, Medrol) 5mg. or more for at least 3 months? No Thyroid medication for thyroid cancer suppression? No Anticonvulsants (phenytoin, Dilantin, phenobarbital) No GnRH Agonist (for endometriosis or prostate cancer, Example - Lupron) No Depo Povera (Current use) No Aromatase inhibitor: Letrozol (Femera), Anastrozole (arimidex), Exemestane (Aromasin) No TZD's for diabetes (Actos, Avandia) No Medical History: Have you had any of the following?: Hyperthyroidism (over active thyroid) No Hyperparathyroidism (over active parathyroid, high blood calcium) No Kidney failure No Rheumatoid arthritis No Seizure disorder (epilepsy) No Diabetes mellitus No Bariatric surgery/Gastric bypass No Back Surgery No Back X-ray No Fractures after age 40 No Area: Treatments: Alendronate (Fosamax) Past use X 3 months (side effects), Date stopped: 06/2016 Calcitonin (Miacalcin) Never, Date stopped: Denosumab (Prolia) Currently 2018 , Date stopped: Ibandronate (Boniva) Never, Date stopped: Pamidronate (Aredia) Never, Date stopped: Raloxifene (Evista) Never, Date stopped: Risendronate (Actonel) Never, Date stopped: Teriparatide (Forteo) Past X 08/2016, Date stopped: 08/30/2018 Zoledronic Acid (Reclast, Zomata) Never, Date stopped: Other: Never, Date stopped: For Women Only: What was your age at menopause? 48 Are you taking estrogen now or within the past year? Never, Date stopped: Have you been treated for breast cancer? Presently 07/2018 Lumpectomy w/ Tamoxifen X 11/2018 - Present Comments: RT DENISE 11/25/2019 7:24 documented in this encounter Plan of Treatment Upcoming Encounters Date Type Department Care Team (Late st Contact Info) Description 07/21/2024 11:00 EDT Office Visit [facility] Ophthalmology - [address] [phone] Marcial Magaña MD [address] [place] [address], Level 5 [place] [phone] 07/25/2024 11:00 EDT Phlebotomy Only [facility] Hematology & Oncology [address] [phone] Blood Doctor, [facility] Hem Onc 07/25/2024 11:45 EDT Office Visit [facility] Hematology & Oncology [address] [phone] Abebe Ralph MD [address] [place] [address], Level 2 [place] [phone] 07/25/2024 12:30 EDT Appointment [facility] Hematology & Oncology [address] [phone] 01/03/2025 16:20 EDT Appointment [facility] Breast Imaging Mammography - [address] [phone] documented as of this encounter Procedures Procedure Name Priority Date/Time Associated Diagnosis Comments DXA DUAL XRAY ABSORPTIOMETRY FOR BONE DENSITY ([facility]) Routine 11/29/2019 11:31 EDT Osteoporosis, unspecified osteoporosis type, unspecified pathological fracture presence documented in this encounter Results * DXA DUAL XRAY ABSORPTIOMETRY FOR BONE DENSITY ([facility]) (11/29/2019 11:31 EDT) DEXA Bone Density DEXA Bone Density, External Anatomical Region Laterality Modality Other 11/29/2019 11:3 1 EDT Lidia Sanchez DO IMG DEXA ORDERABLES Edited Result - Final documented in this encounter Visit Diagnoses Diagnosis Osteoporosis, unspecified osteoporosis type, unspecified pathological fracture presence Post-menopausal Asymptomatic postmenopausal status (age-related) (natural) Osteoporosis screening Special screening for osteoporosis Family history of fracture due to fall Family history of osteoporosis Encounter for monitoring denosumab therapy Encounter for therapeutic drug monitoring Encounter for screening mammogram for malignant neoplasm of breast Other screening mammogram documented in this encounter Care Teams Appeals Analyst Relationship Specialty Start Date End Date Skye Hernandez [address] [place] [address] PCP - General 08/11/18 01/02/22 documented as of this encounter
--- OUTSIDE RECORDS SUMMARY | 2024-04-19 08:13 | XMS_ITS | Encounter Summary ---
Author Organization [facility] Address [address] [place] [address] Care Team Providers Care Block Saw Operator Name Role Phone DavidSkye Faiza Primary Care Provider [phone] Kimi Deleon MD Unavailable [phone] Hannah Batres NP Unavailable [phone] Millie Hilton MD Primary Care Provider Encounter Details Date Type Department Care Team (Late st Contact Info) Description 11/24/2018 Documentation Visit [facility] Center Hematology & Oncology - [facility] [address] [place], [place] [phone] Nisa Degroot, MS [address] [place], [place] [phone] Social History Tobacco Use Types Packs/Day Years [...] documented in this encounter Progress Notes * Nisa Degroot, MS - 11/24/2018 0000 EDT [facility] HEMATOLOGY [facility] ONCOLOGY November 24, 2018 Jeffery Garvey [address] [place] [address] : 1950 Dear Jeffery: We are writing to summarize the results of your genetic testing. We had previously seen you in the [facility] on 10/19/2018. You were referred for genetic counseling to discuss options for genetic testing based on your personal and family history of breast cancer. Following our discussion, you chose to undergo genetic testing utilizing a multi-gene panel. These results have been discussed with you by phone. These results, as well as our conclusions and recommendations are summarized below. Results: The results of genetic testing indicate that you do not carry any variants in any of the 20 genes for which you were tested. Both sequence changes and deletions and duplications for 20 geneswere analyzed through [employer]. The following genes were evaluated: DONTA, BARD1, BRCA1, BRCA2, BRIP1, CDH1, CHEK2, EPCAM, MLH1, MSH2, MSH6, NBN, NF1, PALB2, PMS2, PTEN, RAD51C, RAD51D, STK11, and TP53. To summarize, your personal medical history is of note for the diagnosis of breast cancer in September of this year at the age of 67. You had breast-conserving therapy for a grade 3 invasive ductal carcinoma. The tumor was estrogen- and progesterone-receptor positive and HER2 negative. No lymph nodes were involved. Your family history is of note for your sister, who was diagnosed with breast cancer at age 43 and at age 50. Your maternal family history includes your mother, who was diagnosed with breast cancer at age 72 and at age 92. On your paternal side of the family, it is of note for your father who was diagnosed with leukemia in his 60s and at the age of 69. Your family is of [place], [place] and [place] descent. As noted above, the results of genetic testing did not identify any variants in any of the 20 genesfor which you were tested. A copy of these results has been sent to you separately. We discussed possible explanations for these results. These include: 1. It is possible that your sister, who was diagnosed with early onset breast cancer carried a variant in one of the genes for which you were tested, but you did not inherit this variant. We did discuss that both hereditary and sporadic breast cancer can co-occur in the same family. 2. It is also possible that your family history of breast cancer is not due to one single gene mutation, but is a combination of many factors interacting together. Possible factors include multiple genetic, environmental, hormonal and other biologic factors. As your genetic test results are considered inconclusive, we base future cancer risks on your family history. As you do have a family history of breast cancer, you would be considered at above average risk for a second primary cancer. Women with a family history of breast cancer have between a 15% and 35% chance of developing a second primary breast cancer over the next 10 to 20 years. Given you sister diagnosed at 43 and mom at 72 your risk is likely on the higher side of this range. Based on this risk we recommend that your screening include annual screening breast MRI for women. You may want to talk to your providers regarding the utility of screening breast MRI for you. With regards to other cancers, we have no recommendations for increased surveillance beyond what the [place] [employer] would recommend. It was a pleasure to meet with you. We hope our discussions were helpful. Should you have further questions or concerns regarding any of the information we discussed, please do not hesitate to contact our office. Sincerely, Nisa Degroot MS 03 41 PM - Nisa Degroot, MS cn Dictation ID: [id number] cc: Skye Hernandez MD, [address] [address] Ramon Otero MD, [address], [address], [place] [address] The Patient documented in this encounter Plan of Treatment Upcoming Encounters Date Type Department Care Team (Late st Contact Info) Description 07/21/2024 11:00 EDT Office Visit [facility] Ophthalmology - [address] [phone] Marcial Magaña MD [address] [place] [address], [facility] 5 [place] [phone] 07/25/2024 11:00 EDT Phlebotomy Only [facility] Hematology & Oncology [address] [phone] Blood Doctor, [facility] Hem Onc 07/25/2024 11:45 EDT Office Visit [facility] Hematology & Oncology [address] 780501 Abebe Ralph MD [address] [place] [address], [facility] 2 [place] [phone] 07/25/2024 12:30 EDT Appointment [facility] Hematology & Oncology [address] [phone] 01/03/2025 16:20 EDT Appointment [facility] Breast Imaging Mammography - [address] [phone] documented as of this encounter Visit Diagnoses Not on filedocumented in this encounter Care Teams Block Saw Operator Relationship Specialty Start Date End Date Skye Hernandez [address] [place], [place] [phone] PCP - General 08/11/18 01/02/22 Millie Hilton MD 4 [place] [address] PCP - General 01/03/22 Kimi Deleon MD [address] [place] [address] 05/16/20 Hannah Batres NP [address] [place] [address] 05/16/20 documented as of this encounter
--- OUTSIDE RECORDS SUMMARY | 2024-04-19 08:13 | XMS_ITS | Encounter Summary ---
Author Organization [facility] Address [address] [place] [address] Care Team Providers Care Job Specification Writer Name Role Phone Skye Hernandez Primary Care Provider [phone] Encounter Details Date Type Department Care Team (Late st Contact Info) Description 04/19/2020 Documentation Visit [facility] Surgical Oncology - [facility] [address] [place], [place] [phone] Kimi Deleon MD [address] [place] [phone] Social History Tobacco Use Types Packs/Day Years [...] encounter Progress Notes * Jesusita Bates - 04/19/2020 1112 EST Fax Rcv'd in SurgOnc at [facility]. Marked as High Priority/Urgent from [facility] / Laurie [phone] The fax does not clarify why the fax was sent and what is needed from [facility]. Call to referring office: Laurie unavailable. Etcher Machine unable to clarify and will have Laurie call Jesusita Glass Cylinder Flanger at [facility] [phone] Jesusita Bates 04/19/2020 11:15 documented in this encounter Plan of Treatment Upcoming Encounters Date Type Department Care Team (Late st Contact Info) Description 07/21/2024 11:00 EDT Office Visit [facility] Ophthalmology - [address] [phone] Marcial Magaña MD [address] [place] [address] 5 [place] [phone] 07/25/2024 11:00 EDT Phlebotomy Only [facility] Hematology & Oncology [address] [phone] Blood Doctor, [facility] Hem Onc 07/25/2024 11:45 EDT Office Visit [facility] Hematology & Oncology [address] [phone] Abebe Ralph MD [address] [place] [address], Level [address] [place] [phone] 07/25/2024 12:[address] [facility] Cancer Center Hematology & Oncology - [address] [phone] 01/03/2025 16:20 EDT Appointment [facility] Breast Imaging Mammography - [address] [phone] documented as of this encounter Visit Diagnoses Not on filedocumented in this encounter Care Teams Job Specification Writer Relationship Specialty Start Date End Date Skye Hernandez [address] [place] [address] PCP - General 08/11/18 01/02/22 documented as of this encounter
--- OUTSIDE RECORDS SUMMARY | 2024-04-19 08:13 | XMS_ITS | Encounter Summary ---
Author Organization [facility] Address [address] [place] [address] Care Team Providers Care Executive Housekeeper Name Role Phone Skye Hernandez Primary Care Provider [phone] Encounter Details Date Type Department Care Team (Latest Contact Info) Description 11/09/2018 10:40 EDT Procedure visit [facility] Endocrinology - [facility] [address] [place] [address] Ibeth Beavers DO [address] [facility] [address] [place] [address] Phlebotomy, [facility] Other osteoporosis without current pathological fracture (Primary [...] documented in this encounter Progress Notes * Anabelle Nava - 11/09/2018 1040 EDT Venipuncture preformed for BMP Per orders of Erika Beavers Diagnosis of M81.8 733.09 I was supervised by Erika Millard who was present and immediately available in the office suite. Anabelle Nava 11/09/2018 10:43 documented in this encounter Plan of Treatment Upcoming Encounters Date Type Department Care Team (Late st Contact Info) Description 07/21/2024 11:00 EDT Office Visit [facility] Ophthalmology - [address] [phone] Marcial Magaña MD [address] [place] [address] 5 [place] [phone] 07/25/2024 11:00 EDT Phlebotomy Only [facility] Hematology & Oncology - [address] [phone] Blood Doctor, [facility] Hem Onc 07/25/2024 11:45 EDT Office Visit [facility] Hematology & Oncology [address] [phone] Abebe Ralph MD [address] [place] [address], [facility] 2 [place] [phone] 07/25/2024 12:30 EDT Appointment [facility] Cancer Center Hematology & Oncology - [facility] [address] [place], [place] [address] 01/03/2025 16:20 EDT Appointment [facility] Breast Imaging Mammography - [facility] [address] [place] [address] documented as of this encounter Procedures Procedure Name Priority Date/Time Associated Diagnosis Comments BASIC METABOLIC PANEL (BMP) Routine 11/09/2018 10:43 EDT Other osteoporosis without current pathological fracture documented in this encounter Results * BASIC METABOLIC PANEL (BMP) (11/09/2018 10:43 EDT) Sodium 140 136 - 145 mEq/L 11/09/2018 17:06 [facility] Potassium 4.7 3.5 - 5.0 mEq/L 11/09/2018 17:06 [facility] Chloride 105 96 - 110 mEq/L 11/09/2018 17:06 [facility] CO2 27 22 - 32 mEq/L 11/09/2018 17:06 [facility] BUN 17 10 - 26 mg/dl 11/09/2018 17:06 [facility] Creatinine 0.61 0.52 - 1.04 mg/dl 11/09/2018 17:06 [facility] GFR, Calculated 92 >60 ml/min/1.7 3m2 11/09/2018 17:06 [facility] Comment: eGFR calculated using CKD-EPI equation for non Americans. Multiply eGFR by 1.16 for Americans. Calcium 9.8 8.5 - 10.5 mg/dl 11/09/2018 17:06 [facility] Calculated Calcium 9.4 8.5 - 10.5 mg/dl 11/09/2018 17:06 [facility] Glucose, Serum 93 70 - 100 mg/dl 11/09/2018 17:06 [facility] Fasting? Unknown 11/09/2018 16:42 [facility] Blood specimen (specimen) BLOOD SPECIMEN / Unknown 11/09/2018 10:43 EDT 11/09/2018 16:42 EDT us Ibeth Beavers DO CHEMISTRY & BLOOD GAS ORDERA BLES Final Result [facility] [address] [place] [address] documented in this encounter Visit Diagnoses Diagnosis Other osteoporosis without current pathological fracture- Primary Encounter for screening mammogram for malignant neoplasm of breast Other screening mammogram documented in this encounter Care Teams Executive Housekeeper Relationship Specialty Start Date End Date Skye Hernandez [address] [place] [address] PCP - General 08/11/18 01/02/22 documented as of this encounter
--- OUTSIDE RECORDS SUMMARY | 2024-04-19 08:13 | XMS_ITS | Encounter Summary ---
Author Organization [facility] Address [address] [place] [address] Care Team Providers Care Engraver Seals Name Role Phone Skye Hernandez Primary Care Provider [phone] Encounter Details Date Type Department Care Team (Late st Contact Info) Description 09/17/2018 Orders Only [facility] Osteoporosis - [place] [facility] [address] [place], [place] [phone] Roberto Carlos Landin MD Osteoporosis, unspecified osteoporosis [...] 07/21/2024 11:00 EDT Office Visit [facility] Ophthalmology - [address] [id number] Marcial Magaña MD [address] [place] [address], Level 5 [place] [phone] 07/25/2024 11:00 EDT Phlebotomy Only [facility] Hematology & Oncology [address] [phone] Blood Doctor, [facility] Hem Onc 07/25/2024 11:45 EDT Office Visit [facility] Hematology & Oncology [address] [phone] Abebe Ralph MD [address] [place] [address], Level [address] [place] [phone] 07/25/2024 12:30 EDT Appointment [facility] Hematology & Oncology [address] [phone] 01/03/2025 16:20 EDT Appointment [facility] Breast Imaging Mammography - [address] [phone] documented as of this encounter Procedures Procedure Name Priority Date/Time Associated Diagnosis Comments DXA DUAL XRAY ABSORPTIOMETRY FOR BONE DENSITY ([facility] PERFORMED) Routine 09/17/2018 9:46 EDT Osteoporosis, unspecified osteoporosis type, unspecified pathological fracture presence documented in this encounter Results * DXA DUAL XRAY ABSORPTIOMETRY FOR BONE DENSITY (09/17/2018 9:46 EDT) DEXA Bone Density [facility] DEXA Bone Density, External [facility] Anatomical Region Laterality Modality Other 09/17/2018 9:46 EDT Roberto Carlos Landin MD IMG DEXA ORDERABLES Final Resul t documented in this encounter Visit Diagnoses Diagnosis Osteoporosis, unspecified osteoporosis type, unspecified pathological fracture presence- Primary Encounter for screening mammogram for malignant neoplasm of breast Other screening mammogram documented in this encounter Care Teams Engraver Seals Relationship Specialty Start Date End Date Skye Hernandez [address] [place] [address] PCP - General 08/11/18 01/02/22 documented as of this encounter
--- OUTSIDE RECORDS SUMMARY | 2024-04-19 08:13 | XMS_ITS | Encounter Summary ---
Author Organization [facility] Address [address] [place] [address] Care Team Providers Care Digital Marketing Assistant Name Role Phone Skye Hernandez Primary Care Provider [phone] Reason for Visit * Reason Comments Genetic Evaluation * Consult, Test and Treat (Routine) - Closed Specialty Diagnoses / Procedures Referred By Raghu worrell Referred To Contact Cancer Genetics Diagnoses Breast cancer ([facility]) Family history of breast cancer Family history of leukemia Ramon Otero MD Phone: tel: fax: Referral ID Status Reason Start Date Expiration Date Visits Re quested Visits Authorized [id number] Closed 1 1 Encounter Details Date Type Department Care Team (Late st Contact Info) Description 10/19/2018 12:00 EDT Office Visit [facility] Hematology & Oncology - [facility] [address] [place], [place] [address] Unknown, Provider, Nisa Croft, MS [address] [place], [place] [phone] Encounter for nonprocreative genetic counseling (Primary Dx); Genetic testing; Malignant neoplasm of breast in female, estrogen receptor positive, unspecified laterality, unspecified site of breast ([facility]); Family history of breast cancer Social History Tobacco Use Types Packs/Day Years [...] in this encounter Progress Notes * Nisa Degroot MS - 10/19/[address] Inman's note from same day encounter documented in this encounter Plan of Treatment Upcoming Encounters Date Type Department Care Team (Late st Contact Info) Description 07/21/2024 11:00 EDT Office Visit [facility] Ophthalmology [address] 149291 Marcial Magaña MD [address] [place] [address], [address] [place] [phone] 07/25/2024 11:00 EDT Phlebotomy Only [facility] Hematology & Oncology [address] 573841 Blood Doctor, [facility] Hem Onc 07/25/2024 11:45 EDT Office Visit [facility] Hematology & Oncology [address] [phone] Abebe Ralph MD 111 [facility], [facility], Level [address] [place] [phone] 07/25/2024 12:30 EDT Appointment [facility] Cancer Center Hematology & Oncology - [address] [phone] 01/03/2025 16:20 EDT Appointment [facility] Breast Imaging Mammography - [address] [phone] documented as of this encounter Procedures Procedure Name Priority Date/Time Associated Diagnosis Comments PATHOLOGY - SCANNED 11/01/2018 18:19 EDT documented in this encounter Results * PATHOLOGY - SCANNED (11/01/2018 18:19 EDT) 11/01/2018 18:1 9 EDT us Scan 2 Regulatory Compliance Coordinator LAB INFO SERVICE AND SUPPOR T & PHONE RESULT Final Result documented in this encounter Visit Diagnoses Diagnosis Encounter for nonprocreative genetic counseling- Primary Genetic testing Other investigation and testing for procreative management Malignant neoplasm of breast in female, estrogen receptor positive, unspecified laterality, unspecified site of breast ([facility]) Family history of breast cancer Family history of malignant neoplasm of breast Encounter for screening mammogram for malignant neoplasm of breast Other screening mammogram documented in this encounter Care Teams Digital Marketing Assistant Relationship Specialty Start Date End Date Skye Hernandez [address] [place] [address] PCP - General 08/11/18 01/02/22 documented as of this encounter
--- OUTSIDE RECORDS SUMMARY | 2024-04-19 08:13 | XMS_ITS | Encounter Summary ---
Author Organization [facility] Address [address] [place] [address] Care Team Providers Care Associate Professor Of Radiology Name Role Phone Skye Hernandez Faiza Primary Care Provider Kimi Deleon MD Unavailable [phone] Hannah Batres NP Unavailable [phone] Millie Hilton MD Primary Care Provider [phone] Encounter Details Date Type Department Care Team (Late st Contact Info) Description 01/31/2019 Lab Requisition [facility] Pathology & Laboratory Medicine - [address] [address] Unknown, Provider, Social History Tobacco Use Types Packs/Day Years [...] 07/21/2024 11:00 EDT Office Visit [facility] Ophthalmology - [address] [phone] Marcial Magaña MD [address] [place] [address] 5 [place] [phone] 07/25/2024 11:00 EDT Phlebotomy Only [facility] Hematology & Oncology [address] [phone] Blood Doctor, [facility] Hem Onc 07/25/2024 11:45 EDT Office Visit [facility] Hematology & Oncology [address] 191821 Abebe Ralph MD [address] [place] [address], [facility] 2 [place] [phone] 07/25/2024 12:30 EDT Appointment [facility] Hematology & Oncology - [address] [phone] 01/03/2025 16:20 EDT Appointment [facility] Breast Imaging Mammography - [address] [phone] documented as of this encounter Procedures Procedure Name Priority Date/Time Associated Diagnosis Comments VITAMIN D (25,OH) Routine 01/31/2019 12: 04 EST documented in this encounter Results * (ABNORMAL) VITAMIN D (25,OH) (01/31/2019 12:04 EST) 25OH Vitamin D Tot 23.6(L) 30.0 - 100.0 ng/mL 02/01/2019 13:15 EST [facility] Comment: Vitamin D 25,OH Interpretive Ranges: Deficiency: ??<10.0 ng/mL Insufficiency: ??10.0 - 30.0 ng/mL Sufficiency: ??30.0 - 100.0 ng/mL Toxicity: ??>100.0 ng/mL Blood VENOUS BLOOD / Unknown 01/31/2019 12:04 EST 02/01/2019 10:50 EST us Provider Unknown CHEMISTRY & BLOOD GAS ORDERA BLES Final Result Performing Organization Address City/State/[facility] Co de Phone Number [facility] [address] [place] [address] documented in this encounter Visit Diagnoses Not on filedocumented in this encounter Care Teams Associate Professor Of Radiology Relationship Specialty Start Date End Date Skye Hernandez [address] [place], [place] [address]39[address] PCP - General 08/11/18 01/02/22 Millie Hilton MD [address] [place], [place] 687023 PCP - General 01/03/22 Kimi Deleon MD [address] [place] [phone] 05/16/20 Hannah Batres NP [address] [place] [address] 05/16/20 documented as of this encounter
--- OUTSIDE RECORDS SUMMARY | 2024-04-19 08:13 | XMS_ITS | Encounter Summary ---
Author Organization [facility] Address [address] [place] [address] Care Team Providers Care Partridge Farmer Name Role Phone Skye Hernandez Primary Care Provider [phone] Encounter Details Date Type Department Care Team (Late st Contact Info) Description 10/19/2018 Results Only Imaging [facility] [phone] Unknown, Provider, MD Social History Tobacco Use Types Packs/Day Years [...] Visit [facility] Ophthalmology - [address] [phone] Marcial Magaña MD 111 [facility], [facility] 5 [place] [phone] 07/25/2024 11:00 EDT Phlebotomy Only [facility] Hematology & Oncology - [address] 244461 Blood Doctor, [facility] Hem Onc 07/25/2024 11:45 EDT Office Visit [facility] Hematology & Oncology [address] 361031 Abebe Ralph MD [address] [place] [address], Level [address] [place] [phone] 07/25/2024 12:30 EDT Appointment [facility] Hematology & Oncology [address] [phone] 01/03/2025 16:20 EDT Appointment [facility] Breast Imaging Mammography - [address] [phone] Pending Results Name Type Priority Associated Diagnoses Date /Time OUTSIDE IMAGES - NM OTHER Imaging 10/19/2018 9:19 EDT OUTSIDE IMAGES - OTHER CHEST Imaging 10/19/2018 9:20 EDT OUTSIDE IMAGES - MAMMO BREAST Imaging 09/21/2018 10:28 EDT OUTSIDE IMAGES - MAMMO BREAST Imaging 09/16/2018 10:28 EDT OUTSIDE IMAGES - US BREAST Imaging 09/16/2018 10:28 EDT OUTSIDE IMAGES - US BREAST Imaging 09/01/2018 10:28 EDT OUTSIDE IMAGES - US BREAST Imaging 08/20/2018 10:28 EDT OUTSIDE IMAGES - MAMMO BREAST Imaging 08/20/2018 10:28 EDT OUTSIDE IMAGES - MAMMO BREAST Imaging 08/09/2018 10:28 EDT OUTSIDE IMAGES - MAMMO BREAST Imaging 06/22/2017 10:28 EDT documented as of this encounter Visit Diagnoses Not on filedocumented in this encounter Care Teams Partridge Farmer Relationship Specialty Start Date End Date Skye Hernandez [address] [place] [address] PCP - General 08/11/18 01/02/22 documented as of this encounter
--- OUTSIDE RECORDS SUMMARY | 2024-04-19 08:13 | XMS_ITS | Encounter Summary ---
Author Organization [facility] Address [address] [place] [address] Care Team Providers Care Manager Licensing Name Role Phone Skye Hernandez Primary Care Provider [phone] Reason for Visit * Reason Comments Eye Problem Encounter Details Date Type Department Care Team (Late st Contact Info) Description 03/29/2020 9:45 EST Office Visit [facility] Ophthalmology - [address] [phone] Marcial Magaña MD [address] [facility], [address] [place] [address] Social History Tobacco Use Types [...] Progress Notes * Marcial Magaña MD - 03/29/2020 0945 EST Chief Complaint Patient presents with ??? 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 Modifying factors: Pt noticing distortion in the right eye with baez vision. No eye pain, no flashes or floaters. Associated Signs & Symptoms: Visual Fluctuations: None Attestation: Base Eye Exam Visual Acuity (Snellen - Linear) Right Left Dist sc 20/40 +1 20/30 +1 Tonometry (Applanation, 9:46) Right Left Pressure 14 14 Neuro/Psych Oriented x3: Yes Mood/Affect: Normal Dilation Both eyes: Tropicamide 1%, Phenylephrine 2.5% @ 9:47 Slit Lamp and Fundus Exam Slit Lamp [...] locations included subfoveal. Progression has been stable. Notes Right eye: Stable PED, decrease subretinal fluid, residual trace subretinal fluid Left eye: Drusen, no subretinal fluid Intravitreal Injection, Pharmacologic Agent - OD - Right Eye Time Out 03/29/2020. 10:35. Confirmed correct patient, procedure, site, and patient consented. Anesthesia Topical anesthesia was used. Anesthetic medications included Proparacaine 0.5%, Tetracaine 0.5%. Procedure Preparation included 5% betadine to ocular surface, eyelid speculum. A 30 gauge needle was used. Injection: 2 mg aflibercept 2 mg/0.05 mL ND: 59623-686-41, Lot: [id number], Expiration date: 08/27/2020 Route: intravitreal, Site: Right Eye Post-op Post injection exam found visual acuity of at least counting fingers. The patient tolerated the procedure well. There were no complications. DIAGNOSES: 1. Exudative 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([facility]) OCT, RETINA - OU - BOTH EYES INTRAVITREAL INJECTION, PHARMACOLOGIC AGENT - OD - RIGHT EYE aflibercept (EYLEA) intravitreal syringe 2 mg 2. 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 Mod dry age-related macular degeneration left eye Continue areds 2 vits and regular amsler use Observe ?? I have reviewed the past medical, [...] Info) Description 07/21/2024 11:00 EDT Office Visit [facility] Ophthalmology - [address] 458181 Marcial Magaña MD [address] [place] [address], [facility] 5 [place] [phone] 07/25/2024 11:00 EDT Phlebotomy Only [facility] Hematology & Oncology - [address] [address] Blood Doctor, [facility] Hem Onc 07/25/2024 11:45 EDT Office Visit [facility] Hematology & Oncology - [address] [phone] Abebe Ralph MD [address] [place] [address], [facility] 2 [place] [phone] 07/25/2024 12:30 EDT Appointment [facility] Hematology & Oncology - [address] [phone] 01/03/2025 16:20 EDT Appointment [facility] Breast Imaging Mammography - [address] [phone] documented as of this encounter Procedures Procedure Name Priority Date/Time Associated Diagnosis Comments OCT, RETINA - OU - BOTH EYES Routine 03/29/2020 10:44 EST Exudative 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 (HCC-CMS) INTRAVITREAL INJECTION, PHARMACOLOGIC AGENT - OD - RIGHT EYE Routine 03/29/2020 10:43 EST Exudative 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 (HCC-CMS) documented in this encounter Results * OCT, RETINA - OU - BOTH EYES (03/29/2020 10:44 EST) Narrative [facility] - 03/29/2020 10:44 EST Right Eye Quality was good. Scan locations included subfoveal. Progression has improved. Left Eye Quality was good. Scan locations included subfoveal. Progression has been stable. Notes Right eye: ??Stable PED, decrease subretinal fluid, residual trace subretinal fluid Left eye: ??Drusen, no subretinal fluid Marcial Magaña MD OPH TOMOGRAPHY Final Result Performing Organization Address [facility] Phone Number [facility] * INTRAVITREAL INJECTION, PHARMACOLOGIC AGENT - OD - RIGHT EYE (03/29/2020 10:43 EST) Narrative [facility] - 03/29/2020 10:43 EST Time Out 03/29/2020. 10:35. Confirmed correct patient, procedure, site, and patient consented. Anesthesia Topical anesthesia was used. Anesthetic medications included Proparacaine 0.5%, Tetracaine 0.5%. Procedure Preparation included 5% betadine to ocular surface, eyelid speculum. A 30 gauge needle was used. Injection: 2 mg aflibercept 2 mg/0.05 mL ??NDC: 55741-995-38, Lot: [id number], Expiration date: 08/27/2020 ??Route: intravitreal, Site: Right Eye Post-op Post injection exam found visual acuity of at least counting fingers. The patient tolerated the procedure well. There were no complications. Marcial Magaña MD OPH CLINIC PROCEDURES Final Re sult Performing Organization Address [facility] Phone Number [facility] documented in this encounter Visit Diagnoses Diagnosis [...] mg 2 mg, intravitreal, Starting on Emy 03/29/20 at 1035, Until Emy 03/29/20 at 1244, RoutineIndications:Exudative 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 ([facility]) Given 03/29/2020 10:35 EST 2 mg Right E ye documented in this encounter Orders Medications Ordered That Trevor ht Not Have Been Administered Count Last Ordered Date First Ordered Date aflibercept (EYLEA) intravit real syringe 2 mg 1 03/29/2020 documented in this encounter Eye Exam Visual Acuity (Snellen - Linear) Right eye Left eye Dist sc 20/40 +1 20/30 +1 Tonometry (Applanation, 9:46) Right eye Left eye Pressure 14 14 Neuro/Psych Oriented x3: Yes Mood/Affect: Normal Dilation Both eyes: Tropicamide 1%, P henylephrine 2.5% @ 9:47 Slit Lamp Exam Right eye Left eye [...] sions Attached without predisposing lesions Care Teams Manager Licensing Relationship Specialty Start Date End Date Skye Hernandez [address] [place] [address] PCP - General 08/11/18 01/02/22 documented as of this encounter
--- OUTSIDE RECORDS SUMMARY | 2024-04-19 08:13 | XMS_ITS | Encounter Summary ---
Author Organization [facility] Address [address] [place] [address] Care Team Providers Care Trimmer Helper Name Role Phone Skye Hernandez Primary Care Provider [phone] Reason for Referral * Medication Prior Authorization (Routine) - Closed Specialty Diagnoses / Procedures [facility] Referred To Contact Diagnoses Other osteoporosis without current pathological fracture Ibeth Beavers DO Phone: tel: fax: Referral ID Status Reason Start Date Expiration Date Visits Requested Visits Authorized [id number] Closed Medication Prior Authorization 12/07/2018 1 1 Question Answer Medication to be Prior Authorized: Prolia 60 mg SQ Comments The purpose of this consult request is to inform the scheduling staff that a medication needs to be prior-authorized before it is prescribed and/or administered. Please give at [facility]. Encounter Details Date Type Department Care Team (Late st Contact Info) Description 12/07/2018 Orders Only [facility] Osteoporosis - [place] [address] [place] [address] Ibeth Beavers DO [address] [facility] [address] [place] [phone] Other osteoporosis without current pathological fracture [...] 11:00 EDT Office Visit [facility] Ophthalmology - [address] 104741 Marcial Magaña MD [address] [place] [address] 5 [place] [phone] 07/25/2024 11:00 EDT Phlebotomy Only [facility] Hematology & Oncology [address] 195951 Blood Doctor, [facility] Hem Onc 07/25/2024 11:45 EDT Office Visit [facility] Hematology & Oncology [address] 148741 Abebe Ralph MD [address] [place] [address], [facility] 2 [place] [phone] 07/25/2024 12:30 EDT Appointment [facility] Hematology & Oncology - [address] 060461 01/03/2025 16:20 EDT Appointment [facility] Breast Imaging Mammography - [address] [phone] Scheduled Referrals Name Type Priority Associated Diagnoses Orde r Schedule AMB MEDICATION PRIOR AUTHORIZATION Outpatient Referral Routine Other osteoporosis without current pathological fracture Ordered: 12/07/2018 documented as of this encounter Visit Diagnoses Diagnosis Other osteoporosis without current pathological fracture- Primary Encounter for screening mammogram for malignant neoplasm of breast Other screening mammogram documented in this encounter Care Teams Trimmer Helper Relationship Specialty Start Date End Date Skye Hernandez [address] [place] [address] PCP - General 08/11/18 01/02/22 documented as of this encounter
--- OUTSIDE RECORDS SUMMARY | 2024-04-19 08:13 | XMS_ITS | Encounter Summary ---
Author Organization [facility] Address [address] [place] [address] Care Team Providers Care Eight Section Blower Name Role Phone Skye Hernandez Primary Care Provider [phone] Reason for Visit * Reason Comments Follow-up Encounter Details Date Type Department Care Team (Late st Contact Info) Description 08/10/2019 10:00 EDT Office Visit [facility] Adult Hematology & Oncology [facility] [place], [place] [id number] Ramon Otero MD [address] [place] [address], [facility] [address] [place] [address] Malignant neoplasm of upper-outer quadrant of right [...] Sign Reading Time Taken Comments Blood Pressure 134/70 08/10/2019 1057 EDT Pulse 57 08/10/2019 1057 EDT Temperature 36.6 ??C (97.9 ??F) 08/10/2019 1057 EDT Respiratory Rate 18 08/10/2019 1057 EDT Oxygen Saturation 98% 08/10/2019 1057 EDT Inhaled Oxygen Concentration - - Weight - - Height - - Body Mass Index - - documented in this encounter Functional Status * [...] Tab by mouth daily for 90 days. 30 Tab 2 08/10/2019 11/08/2019 documented in this encounter Progress Notes * Ramon Otero MD - 08/10/2019 1000 EDT Hem/Onc. Follow up Note Jeffery Guru :1950 Age:68 y.o. Gender:female Date of Service:08/09/2019 History of present illness: 1.??Right breast invasive ductal carcinoma, stage IA. pT1c (1.8 cm), pN0 (sn), M0. ER positive, SC positive HER-2 negative. Histologic grade 2, margins: neg, LVI: neg. ?a- 08/09/2018 screening mammogram category 4, right upper quadrant right breast, nonpalpable lesion. ?b- 08/2018 core biopsy, Dr. San. ?c- 09/21/2018 Lumpectomy and sentinel node biopsy. Dr. San. ?d-10/12/2018 Oncotype DX: RS 16 (low), pt 67 y/o ?e- 11/23/18 Completed Adjuvant RT, Dr Sagastume. [...] all healthy. ?e- 09/2018 Referral to the [facility] [place]: Genetic results negative for inherited mutations ? 3.??Osteoporosis . ?a- [id number] Forte[place]. ?b- 08/2018 DXA scan: Spine T score -3.5. - 12/16/18 Start Prolia Q 6m. ? Interim History: Katelin comes in for scheduled follow-up. On tamoxifen with grade 1 fatigue still able to work on her yard for 4 hours at a time needing to take a nap afterwards. She walks anywhere between 2 and 5 miles a day. She feels she is slow down a little bit compared to last year. Mild hot flashes not limiting her sleep or quality of life. Scheduled for screening mammogram tomorrow. ROS: Review of Systems Constitutional: Negative for chills, fever and weight loss. Hot flashes grade 1 HENT: Negative. Eyes: Negative. Respiratory: Negative for cough, hemoptysis and shortness of breath. Cardiovascular: Negative for chest pain, palpitations and leg swelling. Gastrointestinal: Negative for abdominal pain, nausea and vomiting. Genitourinary: Negative. Musculoskeletal: Negative. Skin: Negative for rash. Neurological: Negative. Endo/Heme/Allergies: Negative. Psychiatric/Behavioral: Negative. Vital Signs: No data found. Wt Readings from Last 3 Encounters: 03/02/19 69 kg (152 lb 1.9 oz) 11/09/18 68.5 kg (151 lb) 09/09/18 70.3 kg (155 lb) Ht Readings from Last 1 Encounters: 03/02/19 162.6 cm (64) Estimated body surface area is 1.77 meters squared as calculated from the following: Height as of 03/02/19: 162.6 cm (64). Weight as of 03/02/19: 69 kg (152 lb 1.9 oz). Physical exam: ECOG Performance Status: 0 Physical Exam Constitutional: She is oriented to person, place, and time. She appears well- nourished. No distress. Right breast lymphedema with mild pitting no skin changes. No palpable masses nipple retraction or discharge. At the lumpectomy scar Scar there is no evidence of local recurrence. Left breast no palpable masses nipple retraction or discharge, no skin changes. HENT: Head: Normocephalic. Eyes: EOM are normal. No scleral icterus. Neck: Normal range of motion. Neck supple. Cardiovascular: Normal rate and regular rhythm. Pulmonary/Chest: Effort normal and breath sounds normal. She has no wheezes. Abdominal: Soft. No hepatosplenomegaly Musculoskeletal: Normal range of motion. She exhibits no edema. Lymphadenopathy: She has no cervical adenopathy. She has no axillary adenopathy. Right: No supraclavicular and no epitrochlear adenopathy present. Left: No supraclavicular and no epitrochlear adenopathy present. Neurological: She is alert and oriented to person, place, and time. Skin: Skin is warm and dry. Full body skin check with no suspicious moles for melanoma. Psychiatric: She has a normal mood and affect. PMHx: Past Medical History: Diagnosis Date ??? Basal cell carcinoma 07/09/2007 Left lower eyelid ??? Dermatologic disease basal cell on eyelid removed Allergies: Allergies Allergen Reactions ??? Animal Dander Other reaction(s): Unknown ??? Cat Dander Other reaction(s): Unknown ??? Cats Horses ??? Melatonin Rash Medications: Current Outpatient Medications Medication Sig Dispense [...] 12/16/18 at [facility]) Not Taking ??? Fish Oil-Fulshear-3 Fatty Acids (FISH OIL) 360-1,200 mg capsule 1360mg, 2 caps by mouth daily ??? Lutein 10 mg tablet Take by mouth daily. [facility] Not Taking ??? multivitamin (THERAGRAN) per tablet 1 tab(s) orally once a day ??? Multivitamins with Minerals tablet tablet Take 1 Tab by mouth daily. (contains calcium 25 mg, vitamin D 1000 iu) Taking ??? no-ne-bsvbdl-ueif-lzjlrh-np470 ([facility] FORMULA) 5-1-7.5 mg capsule 1 cap(s) orally oncea day ??? OMEGA-3S/DHA/EPA/FISH OIL (OMEGA 3 ORAL) Take 1,480 mg by mouth daily. (contains vitamin D 1000iu) Taking ??? tamoxifen (NOLVADEX) 10 mg tablet Take 20 mg by mouth daily. Taking ??? tamoxifen (NOLVADEX) 20 mg tablet Take 20 mg by mouth daily. ??? UNABLE TO FIND as needed. Med Name: Quick Immune Response Not Taking No current facility-administered medications for this visit. Data Review: Labs: Results for orders placed or performed in visit on 01/31/19 VITAMIN D (25,OH) Result Value Ref Range 25OH Vitamin D Tot 23.6 (L) 30.0 - 100.0 ng/mL Imaging: No image results found. Assessment: 1. Right breast cancer no evidence of local recurrence or metastatic disease by clinical exam or history. On tamoxifen for 6 months with grade 1 hot flashes, grade 1 fatigue neither limiting her quality of life. States she will continue on his current medication. Screening mammogram scheduled for tomorrow if all negative she will follow-up with Dr. San in 3 months, Dr. Sagastume in 6 months and I will see her in this clinic in 9 months. 2. Osteoporosis she will receive a dose of Prolia today, will check comprehensive metabolic. Continue every [address] San, Dr. Sagastume, Dr. Felicia Jenkins. Ramon Otero MD [facility] documented in this encounter Plan of Treatment Upcoming Encounters Date Type Department Care Team (Late st Contact Info) Description 07/21/2024 11:00 EDT Office Visit [facility] Ophthalmology - [address] [phone] Marcial Magaña MD [address] [place] [address] 5 [place] [phone] 07/25/2024 11:00 EDT Phlebotomy Only [facility] Hematology & Oncology - [address] [phone] Blood Doctor, [facility] Hem Onc 07/25/2024 11:45 EDT Office Visit [facility] Hematology & Oncology [address] [phone] Abebe Ralph MD [address] [place] [address], [address] [place] [phone] 07/25/2024 12:30 EDT Appointment [facility] Hematology & Oncology [address] [phone] 01/03/2025 16:20 EDT Appointment [facility] Breast Imaging Mammography - [address] [phone] documented as of this encounter Visit Diagnoses Diagnosis Malignant neoplasm of upper-outer quadrant of right breast in female, estrogen receptor positive ([facility])- Primary Encounter for screening mammogram for malignant neoplasm of breast Other screening mammogram documented in this encounter Discontinued Medications Medication Sig Discontinue Reason Start Date End Da te tamoxifen (NOLVADEX) 10 mg tablet Take 20 mg by mouth daily. 08/10/2019 Lutein 10 mg tablet Take by mouth daily. [facility] 08/10/2019 tamoxifen (NOLVADEX) 20 mg tablet Take 20 mg by mouth daily. Reorder 11/24/2018 08/10/2019 documented as of this encounter Historical Medications * This list may reflect changes made after this encounter. Fish Oil-Fulshear-3 Fatty Acids 360-1,200 mg capsule 1360mg, 2 caps by mouth daily cholecalciferol, Vitamin D3, 1,000 unit tablet Take 4,000 Units by mouth daily. 01/05/2024 tamoxifen (NOLVADEX) 20 mg tablet Take 20 mg by mouth daily. 11/24/2018 08/10/2019 ql-bc-cpwlzl-zeax -bilber-hb277 ([facility] FORMULA) 5-1-7.5 mg capsule 1 cap(s) orally once a day 09/03/2020 multivitamin (THERAGRAN) per tablet 1 tab(s) orally once a day 06/15/2020 added in this encounter Care Teams Eight Section Blower Relationship Specialty Start Date End Date Skye Hernandez [address] [place] [address] PCP - General 08/11/18 01/02/22 documented as of this encounter
--- OUTSIDE RECORDS SUMMARY | 2024-04-19 08:13 | XMS_ITS | Encounter Summary ---
Author Organization [facility] Address [address] [place] [address] Care Team Providers Care Recyclable Materials Sorter Name Role Phone Skye Hernandez Primary Care Provider [phone] Encounter Details Date Type Department Care Team (Late st Contact Info) Description 10/19/2018 Phlebotomy Only [address] [address] Manager Home Healthcare, Outpatient Social History Tobacco Use Types Packs/Day Years [...] EDT Office Visit [facility] Ophthalmology - [address] [phone] Marcial Magaña MD [address] [place] [address] 5 [place] [phone] 07/25/2024 11:00 EDT Phlebotomy Only [facility] Hematology & Oncology [address] [phone] Blood Doctor, [facility] Hem Onc 07/25/2024 11:45 EDT Office Visit [facility] Hematology & Oncology [address] [address] Abebe Ralph MD [address] [place] [address], [address] [place] [phone] 07/25/2024 12:30 EDT Appointment [facility] Hematology & Oncology [address] [phone] 01/03/2025 16:20 EDT Appointment [facility] Breast Imaging Mammography - [address] [phone] documented as of this encounter Visit Diagnoses Not on filedocumented in this encounter Care Teams Recyclable Materials Sorter Relationship Specialty Start Date End Date Skye Hernandez [address] [place] [address] PCP - General 08/11/18 01/02/22 documented as of this encounter
--- OUTSIDE RECORDS SUMMARY | 2024-04-19 08:13 | XMS_ITS | Encounter Summary ---
Author Organization [facility] Address [address] [place] [address] Care Team Providers Care Town Marshal Name Role Phone Skye Hernandez Primary Care Provider [phone] Encounter Details Date Type Department Care Team (Late st Contact Info) Description 09/21/2018 Results Only [facility] [phone] Po Christianson MD [address] [place] [phone] Social History Tobacco Use Types Packs/Day Years [...] Info) Description 07/21/2024 11:00 EDT Office Visit [facility] Ophthalmology - [address] [phone] Marcial Magaña MD [address] [place] [address], [place] [address] [place] [phone] 07/25/2024 11:00 EDT Phlebotomy Only [facility] Hematology & Oncology [address] [phone] Blood Doctor, [facility] Hem Onc 07/25/2024 11:45 EDT Office Visit [facility] Hematology & Oncology [address] [phone] Abebe Ralph MD [address] [place] [address], [place] [address] [place] [phone] 07/25/2024 12:30 EDT Appointment [facility] Hematology & Oncology [address] [phone] 01/03/2025 16:20 EDT Appointment [facility] Breast Imaging Mammography - [address] [phone] documented as of this encounter Procedures Procedure Name Priority Date/Time Associated Diagnosis Comments SURGICAL PATHOLOGY Routine 09/21/2018 0:00 EDT documented in this encounter Results * SURGICAL PATHOLOGY (09/21/2018 0:00 EDT) Pathology Report: SURGICAL PATHOLOGY REPORT Reports generated via electronic interface contain original data; however they are lacking the format of the original report. Caution should be taken when reading/interpreting unformatted reports. Name: ? JEFFERY IRELAND ? Accession #: ? [id number] ? : ? 1950 (Age: 67) ??F ?Collect Date: ? 09/21/2018 ? Location: ? [facility] ? Receive Date: ? 10/04/2018 ? Provider: PO CHRISTIANSON MD Copy to: TUNG WHITE MD ? Clinical History: ? Her 2 IMMUNOPEROXIDASE REPORT ? Date Ordered: ? 10/04/2018 ? Status: ?? Signed Out ?Date Complete: ? 10/05/2018 ? By: ??Yancy Awa ? Date Reported: ? 10/05/2018 ? Interpretation ASSAY RESULTS Her2 SCORE: ?0/negative TUMOR LOCATION: ??Right breast, 11 o'clock COLD ISCHEMIC TIME AND TOTAL FORMALIN FIXATIVE TIME APPROPRIATE: Yes CELLS WITH COMPLETE MEMBRANE STAINING: ??None MEMBRANE STAINING INTENSITY: ??N/A PARTIAL MEMBRANE STAINING: ??Absent CYTOPLASMIC STAINING: Absent STAINING PATTERN: N/A STAINING IN BENIGN EPITHELIUM: Absent THE HER2 ASSAY PERFORMED IS INTERPRETED NEGATIVE. Description Tissue submitted: Paraffin embedded tissue block labelled [id number], block (C2) from [facility] Clinical History: ??Invasive ductal carcinoma, right breast ? Fixative: ??Formalin ??(This immunohistochemical assay is intended for paraffin-embedded tissue fixed in 10% neutral buffered formalin for 6-72 hours; 18-24 hours with maximum tissue thickness of 3-4 millimeters is recommended for best assay performance. ??Her2 should not be performed on alcohol fixed tissues.) The assay was performed under appropriate conditions according to the environmental protection inspector's instructions with appropriate assay and tissue controls using an Anti-Her2 (4B5) Rabbit Monoclonal Antibody ([place]). Her2 IHC Scoring Guidelines (invasive tumor component only) 0 ? negative ?No staining or membrane staining in less than 10% of cells 1+ ? negative ?Faint partial membrane staining in more than 10% of cells 2+ ? weakly positive ?Moderate complete membrane staining in more than 10% of cells 3+ ? positive ? Strong complete membrane staining in more than 10% of cells Reference: ??ASCO-CAP Recommendations for Her2 Testing. J Clin Oncol 2013; epub (www.jco.org Dec 27, 2012) ? NOTE: ??One or more of the reagents used in immunoperoxidase testing in this case may not have been cleared or approved by the U.S. Food and Drug Administration (FDA). ??The FDA has determined that such clearance or approval is not necessary. ??These tests are used for clinical purposes. ??They should not be regarded as investigational or for research. ??These reagents' performance characteristics have been determined by [facility] and/or by the referring laboratory. ??The positive and negative controls worked appropriately. If immunoperoxidase staining has been performed on alcohol fixed cytology specimens, which has not been fully validated, the assays should be interpreted with caution and correlated with clinical data. ??This laboratory is certified under the Clinical Laboratory Improvement Amendments of 1988 (CLIA-88) as qualified to perform high complexity clinical laboratory testing. Document reviewed and electronically signed by: ? FLOR VAZQUEZ MD PHD ? Report date: 10/05/2018 By the signature above, the attending physician certifies that he/she has personally conducted a gross and/or microscopic examination of the described specimens and rendered or confirmed the above diagnosis. End of Report [facility] 09/21/2018 10/04/2018 15: 35 EDT us Po Christianson MD PATHOLOGY ORDERABLES Final Res ult [facility] [address] [place] [address] documented in this encounter Visit Diagnoses Not on filedocumented in this encounter Care Teams Town Marshal Relationship Specialty Start Date End Date Skye Hernandez [address] [place] [address] PCP - General 08/11/18 01/02/22 documented as of this encounter
--- OUTSIDE RECORDS SUMMARY | 2024-04-19 08:13 | XMS_ITS | Encounter Summary ---
Author Organization [facility] Address [address] [place] [address] Care Team Providers Care Last Inserter Name Role Phone Skye Hernandez Primary Care Provider [phone] Reason for Visit * Reason Comments Eye Problem Encounter Details Date Type Department Care Team (Late st Contact Info) Description 03/01/2020 13:30 EST Office Visit [facility] Ophthalmology - [address] [phone] Marcial Magaña MD [address] [facility], [address] [place] [address] Social History Tobacco Use Types [...] Progress Notes * Marcial Magaña MD - 03/01/2020 1330 EST Chief Complaint Patient presents with ??? Eye Problem Comments Referral for ? Wet age-related macular degeneration from Deidre Lizama, right eye HPI Location: Right eye Pain: 0 - No pain Quality: Blurry Severity: Mild Duration: Months Timing: Constant Lasts: Continuous Context: dry AMD Modifying factors: vision less bright right eye Associated Signs & Symptoms: no new distortion Visual Fluctuations: Floaters(rare) Attestation: Base Eye Exam Visual Acuity (Snellen - Linear) Right Left Dist sc 20/40 20/25 -2 Dist ph sc 20/25 Tonometry (Applanation, 14:24) Right Left Pressure 15 14 Neuro/Psych Oriented x3: Yes Mood/Affect: Normal Dilation Both eyes: Tropicamide 1% @ 14:24 Slit Lamp and Fundus Exam Slit Lamp [...] intermediate and large drusen, PED inferior to fovea, SRF large drusen, RPE mottling Vessels Normal Normal Periphery Attached without predisposing lesions Attached without predisposing lesions Please refer to large retinal drawing. IMAGING: OCT, Retina - OU - Both Eyes Right Eye Quality was good. Scan locations included subfoveal. Left Eye Quality was good. Scan locations included subfoveal. Notes Right eye: increased PED with new subretinal fluid OCT-A: Choroidal neovascular membrane inferior to fovea Left eye: drusen, PED, no fluid OCT-A: no choroidal neovascular membrane Intravitreal Injection, Pharmacologic Agent - OD - Right Eye Time Out 03/01/2020. 15:34. Confirmed correct patient, procedure, site, and patient consented. Anesthesia Topical anesthesia was used. Anesthetic medications included Proparacaine 0.5%, Tetracaine 0.5%. Procedure Preparation included 5% betadine to ocular surface, eyelid speculum. A 30 gauge needle was used. Injection: 2 mg aflibercept 2 mg/0.05 mL [facility]: [id number], Lot: [id number], Expiration date: 06/30/2020 Route: intravitreal, Site: Right Eye Post-op Post injection exam found visual acuity of at least counting fingers. The patient tolerated the procedure well. There were no complications. DIAGNOSES: 1. Exudative 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([facility]) OCT, RETINA - OU - BOTH EYES INTRAVITREAL INJECTION, PHARMACOLOGIC AGENT - OD - RIGHT EYE aflibercept (EYLEA) intravitreal syringe 2 mg 2. 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 Continue areds 2 vits and regular amsler use Observe I have [...] [facility] - [address] [phone] Marcial Magaña MD [address] [place] [address], [facility] [address] [place] [phone] 07/25/2024 11:00 EDT Phlebotomy Only [facility] Hematology & Oncology - [address] [phone] Blood Doctor, [facility] Hem Onc 07/25/2024 11:45 EDT Office Visit [facility] Hematology & Oncology - [address] [phone] Abebe Ralph MD [address] [place] [address], [address] [place] [phone] 07/25/2024 12:30 EDT Appointment [facility] Hematology & Oncology - [address] [phone] 01/03/2025 16:20 EDT Appointment [facility] Breast Imaging Mammography - [address] [phone] documented as of this encounter Procedures Procedure Name Priority Date/Time Associated Diagnosis Comments INTRAVITREAL INJECTION, PHARMACOLOGIC AGENT - OD - RIGHT EYE Routine 03/01/2020 17:06 EST Exudative 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 ([facility]) OCT, RETINA - OU - BOTH EYES Routine 03/01/2020 17:06 EST Exudative 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 (HCC-CMS) documented in this encounter Results * INTRAVITREAL INJECTION, PHARMACOLOGIC AGENT - OD - RIGHT EYE (03/01/2020 17:06 EST) Narrative [facility] - 03/01/2020 17:06 EST Time Out 03/01/2020. 15:34. Confirmed correct patient, procedure, site, and patient consented. Anesthesia Topical anesthesia was used. Anesthetic medications included Proparacaine 0.5%, Tetracaine 0.5%. Procedure Preparation included 5% betadine to ocular surface, eyelid speculum. A 30 gauge needle was used. Injection: 2 mg aflibercept 2 mg/0.05 mL ??[facility]: [id number], Lot: [id number], Expiration date: 06/30/2020 ??Route: intravitreal, Site: Right Eye Post-op Post injection exam found visual acuity of at least counting fingers. The patient tolerated the procedure well. There were no complications. Marcial Magaña MD OPH CLINIC PROCEDURES Final Re sult Performing Organization Address [facility] Co de Phone Number [facility] * OCT, RETINA - OU - BOTH EYES (03/01/2020 17:06 EST) Narrative [facility] - 03/01/2020 17:06 EST Right Eye Quality was good. Scan locations included subfoveal. Left Eye Quality was good. Scan locations included subfoveal. Notes Right eye: increased PED with new subretinal fluid OCT-A: ??Choroidal neovascular membrane inferior to fovea Left eye: drusen, PED, no fluid OCT-A: no choroidal neovascular membrane Marcial Magaña MD OPHTH TOMOGRAPHY Final Result Performing Organization Address [facility] Co de Phone Number [facility] documented in this encounter Visit Diagnoses [...] mg 2 mg, intravitreal, Starting on Emy 03/01/20 at 1534, Until Emy 03/01/20 at 1908, RoutineIndications:Exudative 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 tamoxifen (NOLVADEX) 10 mg tablet Take 20 mg by mouth daily. 03/05/2020 added in this encounter Eye Exam Visual Acuity (Snellen - Linear) Right eye Left eye Dist sc 20/40 20/25 -2 Dist ph sc 20/25 Tonometry (Applanation, 14:24) Right eye Left eye Pressure 15 14 Neuro/Psych Oriented x3: Yes Mood/Affect: Normal Dilation Both eyes: Tropicamide 1% @ 14:24 Slit Lamp Exam Right eye Left eye [...] and lar ge drusen, PED inferior to fovea, SRF large drusen, RPE mottling Vessels Normal Normal Periphery Attached without predisposing le sions Attached without predisposing lesions Care Teams Last Inserter Relationship Specialty Start Date End Date Skye Hernandez [address] [place] [address] PCP - General 08/11/18 01/02/22 documented as of this encounter
--- OUTSIDE RECORDS SUMMARY | 2024-04-19 08:13 | XMS_ITS | Encounter Summary ---
Author Organization [facility] Address [address] [place] [address] Care Team Providers Care Operations Administrator Name Role Phone Skye Hernandez Primary Care Provider [phone] Reason for Visit * Reason Comments Osteoporosis Encounter Details Date Type Department Care Team (Latest Contact Info) Description 09/09/2018 9:30 EDT Office Visit [facility] Osteoporosis - [facility] [address] [place], [place] [id number] [place] [address] [place] [address] Jorgito Garza MD Other osteoporosis without current pathological fracture; Osteoporosis screening; Post-menopausal; Malignant neoplasm of female breast, unspecified estrogen receptor status, unspecified laterality, unspecified site of breast ([facility]); Family history of fracture due to fall; Family history of osteoporosis; Encounter for monitoring teriparatide therapy Discharge Disposition: Auto Discharge Social History Tobacco [...] - Inhaled Oxygen Concentration - - Weight 70.3 kg (155 lb) 09/09/2018 09 EDT Height 163.8 cm (5' 4.49) 09/09/2018 09 EDT Body Mass Index 26.2 09/09/2018 0926 EDT documented in this encounter Functional Status [...] M81.8 Other osteoporosis without current pathological fracture-M81.8[ICD-10-CM] Z13.820 Encounter for screening for osteoporosis-Z13.820[ICD-10-CM] Z78.0 Asymptomatic menopausal state-Z78.0[ICD-10-CM] documented in this encounter Discharge Disposition Disposition Code Departure Means Destination Auto Discharge documented in this encounter Progress Notes * Dee Dee Burris - 09/09/2018 0930 EDT Procedure Date: 09-09-2018 Referring Physician: Dr Joel Landin Previous Scan Date: 08-29-2016 ABN Necessary: No There were no vitals taken for this visit. Done AP SPINE Yes FEMUR Yes TOTAL BODY FOREARM LVA/VFA HEEL US PATIENT HISTORY: Patient Active Problem List Diagnosis ??? Personal history of other malignant neoplasm of skin ??? Seborrheic keratoses ??? Other osteoporosis without current pathological fracture Past Medical History: Diagnosis Date ??? Basal cell carcinoma 07/09/2007 Left lower eyelid ??? Dermatologic disease basal cell on eyelid removed Additional Comments: Previous/Prior Comparison? Yes Pharmacologic? Yes [facility]opor[facility] Patient Information Ethnicity/Race: Nutrition and Habits: Do you consume dairy? Yes Number of servings per day? Do you take calcium supplements? Yes Amount? Do you drink 3 or more alcoholic beverages daily? No Have you now or have you had in the past an eating disorder? No Do you or have you smoked in the last 6 months? No Family History: Did your mother or father have a hip fracture? No Do you have a parent or sibling [...] Calcitonin (Miacalcin) Never, Date stopped: Denosumab (Prolia) Never, Date stopped: Ibandronate (Boniva) Never, Date stopped: [...] you been treated for breast cancer? Presently 2019 Comments: DEE DEE BURRIS 09/08/2018 16:26 documented in this encounter Plan of Treatment Upcoming Encounters Date Type Department Care Team (Late st Contact Info) Description 07/21/2024 11:00 EDT Office Visit [facility] Ophthalmology - [address] 540781 Marcial Magaña MD [address] [place] [address], Level [address] [place] [phone] 07/25/2024 11:00 EDT Phlebotomy Only [facility] Hematology & Oncology [address] [phone] Blood Doctor, [facility] Hem Onc 07/25/2024 11:45 EDT Office Visit [facility] Hematology & Oncology [address] 835631 Abebe Ralph MD [address] [place] [address], Level [address] [place] [phone] 07/25/2024 12:30 EDT Appointment [facility] Hematology & Oncology [address] [phone] 01/03/2025 16:20 EDT Appointment [facility] Breast Imaging Mammography - [address] 600251 documented as of this encounter Visit Diagnoses Diagnosis Other osteoporosis without current pathological fracture Osteoporosis screening Special screening for osteoporosis Post-menopausal Asymptomatic postmenopausal status (age-related) (natural) Malignant neoplasm of female breast, unspecified estrogen receptor status, unspecified laterality, unspecified site of breast ([facility]) Family history of fracture due to fall Family history of osteoporosis Encounter for monitoring teriparatide therapy Encounter for therapeutic drug monitoring Encounter for screening mammogram for malignant neoplasm of breast Other screening mammogram documented in this encounter Care Teams Operations Administrator Relationship Specialty Start Date End Date Skye Hernandez [address] [place] [address] PCP - General 08/11/18 01/02/22 documented as of this encounter
--- OUTSIDE RECORDS SUMMARY | 2024-04-19 08:13 | XMS_ITS | Encounter Summary ---
Author Organization [facility] Address [address] [place] [address] Care Team Providers Care Carbide Powder Processor Name Role Phone Skye Hernandez Primary Care Provider [phone] Encounter Details Date Type Department Care Team (Latest Contact Info) Description 02/23/2020 Travel Social History Tobacco Use Types Packs/Day [...] [facility] – [facility] Ophthalmology - [address] 120951 Marcial Magaña MD [address] [place] [address], [facility] 5 [place] [phone] 07/25/2024 11:00 EDT Phlebotomy Only [facility] Hematology & Oncology [address] 522651 Blood Doctor, [facility] Hem Onc 07/25/2024 11:45 EDT Office Visit [facility] Hematology & Oncology [address] [address] Abebe Ralph MD [address] [place] [address], Level 2 [place] [phone] 07/25/2024 12:30 EDT Appointment [facility] Hematology & Oncology [address] 206891 01/03/2025 16:20 EDT Appointment [facility] Breast Imaging Mammography - [address] 037521 documented as of this encounter Visit Diagnoses Not on filedocumented in this encounter Care Teams Carbide Powder Processor Relationship Specialty Start Date End Date Skye Hernandez 4 [facility] [place] [address] PCP - General 08/11/18 01/02/22 documented as of this encounter
--- OUTSIDE RECORDS SUMMARY | 2024-04-19 08:13 | XMS_ITS | Encounter Summary ---
Author Organization [facility] Address [address] [place] [address] Care Team Providers Care Magnetic Tester Name Role Phone DavidSkye Faiza Primary Care Provider [phone] Kimi Deleon MD Unavailable [phone] Hannah Batres NP Unavailable [phone] Millie Hilton MD Primary Care Provider [phone] Encounter Details Date Type Department Care Team (Late st Contact Info) Description 12/08/2019 Lab Requisition [facility] Pathology & Laboratory Medicine - [address] [address] Outr Resulting Lab, Provider Social [...] Visit [facility] Ophthalmology - [address] 435151 Marcial Magaña MD [address] [place] [address] 5 [place] [phone] 07/25/2024 11:00 EDT Phlebotomy Only [facility] Hematology & Oncology - [address] 518141 Blood Doctor, [facility] Hem Onc 07/25/2024 11:45 EDT Office Visit [facility] Hematology & Oncology [address] 634841 Abebe Ralph MD [address] [place] [address], Level [address] [place] [phone] 07/25/2024 12:30 EDT Appointment [facility] Hematology & Oncology [address] [phone] 01/03/2025 16:20 EDT Appointment [facility] Breast Imaging Mammography - [address] 057761 documented as of this encounter Procedures Procedure Name Priority Date/Time Associated Diagnosis Comments VITAMIN D (25,OH) Routine 12/08/2019 13: 20 EDT documented in this encounter Results * VITAMIN D (25,OH) (12/08/2019 13:20 EDT) 25OH Vitamin D Tot 34.1 30.0 - 100.0 ng/mL 12/09/2019 10:58 EDT [facility] Comment: Vitamin D 25,OH Interpretive Ranges: Deficiency: ??<10.0 ng/mL Insufficiency: ??10.0 - 30.0 ng/mL Sufficiency: ??30.0 - 100.0 ng/mL Toxicity: ??>100.0 ng/mL Blood VENOUS BLOOD / Unknown 12/08/2019 13:20 EDT 12/08/2019 22:37 EDT us Provider Outr Resulting Lab CHEMISTRY & BLOOD GA S ORDERABLES Final Result [facility] [address] [place] [address] documented in this encounter Visit Diagnoses Not on filedocumented in this encounter Care Teams Magnetic Tester Relationship Specialty Start Date End Date Skye Hernandez 4 [place] [address] PCP - General 08/11/18 01/02/22 Millie Hilton MD [address] [place] [address] PCP - General 01/03/22 Kimi Deleon MD [address] [place] [address] 05/16/20 Hannah Batres NP [address] [place] [address] 05/16/20 documented as of this encounter
--- OUTSIDE RECORDS SUMMARY | 2024-04-19 08:13 | XMS_ITS | Encounter Summary ---
Author Organization [facility] Address [address] [place] [address] Care Team Providers Care Cargo Station Worker Name Role Phone Skye Hernandez Primary Care Provider [phone] Reason for Visit * Reason Onset Date Comments Prior Auth, Medication 12/14/2018 Prolia Encounter Details Date Type Department Care Team (Late st Contact Info) Description 12/14/2018 Telephone [facility] [address] [place] [address] Ibeth Beavers, DO [address] [place] [phone] Prior Auth, Medication (Prolia) Social History Tobacco Use Types Packs/Day Years [...] encounter Miscellaneous Notes * Telephone Encounter - Priscila Camargo - 12/14/2018 1100 EDT Patient is going to [facility] today at 2pm. [facility] unsure if a PA is needed. Fish Hatchery Supervisor did not see approval. Please fax to [phone] documented in this encounter Plan of Treatment Upcoming Encounters Date Type Department Care Team (Late st Contact Info) Description 07/21/2024 11:00 EDT Office Visit [facility] Ophthalmology [address] 150401 Marcial Magaña MD [address] [place] [address], [facility] 5 [place] [phone] 07/25/2024 11:00 EDT Phlebotomy Only [facility] Hematology & Oncology [address] [phone] Blood Doctor, [facility] Hem Onc 07/25/2024 11:45 EDT Office Visit [facility] Hematology & Oncology [address] [address] Abebe Ralph MD [address] [place] [address], [facility] [address] [place] [phone] 07/25/2024 12:30 EDT Appointment [facility] Hematology & Oncology [address] [phone] 01/03/2025 16:20 EDT Appointment [facility] Breast Imaging Mammography - [address] [address] documented as of this encounter Visit Diagnoses Not on filedocumented in this encounter Care Teams Cargo Station Worker Relationship Specialty Start Date End Date Skye Hernandez [address] [place] [address] PCP - General 08/11/18 01/02/22 documented as of this encounter
--- OUTSIDE RECORDS SUMMARY | 2024-04-19 08:13 | XMS_ITS | Encounter Summary ---
Author Organization [facility] Address [address] [place] [address] Care Team Providers Care Manager Drive Name Role Phone Skye Hernandez Primary Care Provider [phone] Reason for Referral * (Routine) - New Request Specialty Diagnoses / Procedures Referred By Conteugene t Referred To Contact Diagnoses Osteoporosis, unspecified osteoporosis type, unspecified pathological fracture presence Procedures DXA DUAL XRAY ABSORPTIOMETRY FOR BONE DENSITY ([facility]) Lidia Kyle DO Phone: tel: fax: Referral ID Status Reason Start Date Expiration Date V isits Requested Visits Authorized [id number] New Request 11/24/2019 1 1 Encounter Details Date Type Department Care Team (Latest Contact Info) Description 11/24/2019 Transcribe Orders [facility] Endocrinology - [facility] [address] [place] [address] Lidia Kyle DO [address] [facility] [address] [place] [address] Osteoporosis, unspecified osteoporosis type, unspecified [...] Description 07/21/2024 11:00 EDT Office Visit [facility] Ophthalmology - [address] [phone] Marcial Magaña MD [address] [place] [address] 5 [place] [phone] 07/25/2024 11:00 EDT Phlebotomy Only [facility] Hematology & Oncology [address] [phone] Blood Doctor, [facility] Hem Onc 07/25/2024 11:45 EDT Office Visit [facility] Hematology & Oncology [address] [phone] Abebe Ralph MD [address] [place] [address] 2 [place] [phone] 07/25/2024 12:30 EDT Appointment [facility] Hematology & Oncology - [facility] [address] [place], [place] [address] 01/03/2025 16:20 EDT Appointment [facility] Breast Imaging Mammography - [facility] [address] [place] [address] documented as of this encounter Results * DXA DUAL XRAY ABSORPTIOMETRY FOR BONE DENSITY ([facility]) (11/29/2019 11:31 EDT) DEXA Bone Density DEXA Bone Density, External Anatomical Region Laterality Modality Other 11/29/2019 11:3 1 EDT Lidia Kyle V, IMG DEXA ORDERABLES Edited Result - Final documented in this encounter Visit Diagnoses Diagnosis Osteoporosis, unspecified osteoporosis type, unspecified pathological fracture presence- Primary Encounter for screening mammogram for malignant neoplasm of breast Other screening mammogram documented in this encounter Care Teams Manager Drive Relationship Specialty Start Date End Date Skye Hernandez [address] [place] [address] PCP - General 08/11/18 01/02/22 documented as of this encounter
--- OUTSIDE RECORDS SUMMARY | 2024-04-19 08:13 | XMS_ITS | Encounter Summary ---
Author Organization [facility] Address [address] [place] [address] Care Team Providers Care Band Scroll Saw Operator Name Role Phone Skye Hernandez Primary Care Provider [phone] Reason for Visit * Reason Onset Date Comments Medications Refill 03/05/2020 Encounter Details Date Type Department Care Team (Late st Contact Info) Description 03/05/2020 Refill [facility] Adult Hematology & Oncology [address] [place] [phone] Ramon Otero MD [address] [place] [address], [facility] [address] [place] [address] Medications Refill Social History Tobacco [...] Filled Start Date End Date tamoxifen (NOLVADEX) 10 mg tablet Take 2 Tabs by mouth daily. 90 Tab 3 03/05/2020 03/06/2020 documented in this encounter Miscellaneous Notes * Telephone Encounter - Hardy Yancey RN - 03/05/2020 1204 EST Refill request from Tamoxifen 20mg daily ??[facility] pt - agree with attached? documented in this encounter Plan of Treatment Upcoming Encounters Date Type Department Care Team (Late st Contact Info) Description 07/21/2024 11:00 EDT Office Visit [facility] Ophthalmology [address] 100281 Marcial Magaña MD [address] [place] [address], Level 5 [place] [phone] 07/25/2024 11:00 EDT Phlebotomy Only [facility] Hematology & Oncology [address] 848071 Blood Doctor, [facility] Hem Onc 07/25/2024 11:45 EDT Office Visit [facility] Hematology & Oncology [address] [phone] Abebe Ralph MD [address] [facility], Level [address] [place] [address] 07/25/2024 12:30 EDT Appointment [facility] Cancer Center Hematology & Oncology - [address] [phone] 01/03/2025 16:20 EDT Appointment [facility] Breast Imaging Mammography - [address] 130531 documented as of this encounter Visit Diagnoses Not on filedocumented in this encounter Discontinued Medications Medication Sig Discontinue Reason Start Date End Da te tamoxifen (NOLVADEX) 10 mg tablet Take 20 mg by mouth daily. Reorder 03/05/2020 documented as of this encounter Care Teams Band Scroll Saw Operator Relationship Specialty Start Date End Date Skye Hernandez [address] [place] [address] PCP - General 08/11/18 01/02/22 documented as of this encounter
--- OUTSIDE RECORDS SUMMARY | 2024-04-19 08:13 | XMS_ITS | Encounter Summary ---
Author Organization [facility] Address [address] [place] [address] Care Team Providers Care Cigar Sorter Name Role Phone Skye Hernandez Primary Care Provider [phone] Reason for Visit * Reason Onset Date Comments Advice Only 04/28/2019 Encounter Details Date Type Department Care Team (Late st Contact Info) Description 04/28/2019 Telephone [facility] Adult Hematology & Oncology [address] [place] [phone] Carolin Lindquist, broodmare foreman Only Social History Tobacco Use Types Packs/Day [...] encounter Miscellaneous Notes * Telephone Encounter - Ramon Otero MD - 04/28/2019 1554 EST Patient was started on tamoxifen for breast cancer. She does not need a routine screening of the endometrium while on tamoxifen, in the event of any bleeding in the area needs to be evaluated. Regardless of what she thinks it is coming from (hemorrhoids) it should be evaluated by someone to confirmthat is not coming transvaginal and if so should have a pelvic ultrasound evaluation of the endometrium. patient had no further questions. * Telephone Encounter - Carolin Lindquist RN - 04/28/2019 1301 EST [facility] was told by Dr. Otero while taking the Tamoxifen she would need to have pelvic exams, she recently had her NETWORK SPECIALIST visit and they said she would have to make a separate appointment for the pelvic exam. Patient questioning when she should have the 1st being that she started the Tamoxifen in November 2018? How often this will need to happen and for how long? documented in this encounter Plan of Treatment Upcoming Encounters Date Type Department Care Team (Late st Contact Info) Description 07/21/2024 11:00 EDT Office Visit [facility] Ophthalmology - [address] 768041 Marcial Magaña MD [address] [place] [address], Level 5 [place] [address] 07/25/2024 11:00 EDT Phlebotomy Only [facility] Hematology & Oncology - [address] 450611 Blood Doctor, [facility] Hem Onc 07/25/2024 11:45 EDT Office Visit [facility] Hematology & Oncology - [address] 252491 Abebe Ralph MD [address] [facility], Level 2 [place] [phone] 07/25/2024 12:30 EDT Appointment [facility] Hematology & Oncology - [address] [address] 01/03/2025 16:20 EDT Appointment [facility] Breast Imaging Mammography - [address] 914511 documented as of this encounter Visit Diagnoses Not on filedocumented in this encounter Care Teams Cigar Sorter Relationship Specialty Start Date End Date Skye Hernandez [address] [place] [address] PCP - General 08/11/18 01/02/22 documented as of this encounter
--- OUTSIDE RECORDS SUMMARY | 2024-04-19 08:14 | XMS_ITS | Encounter Summary ---
Author Organization [facility] Address [address] [place] [address] Care Team Providers Care Clinical Dietitian Name Role Phone Unavailable Primary Care Provider Unavailabl e Encounter Details Date Type Department Care Team (Late st Contact Info) Description 09/17/2007 8:02 EDT Hospital Encounter [facility] [address] [place] [address] Ad Mcdonald MD [address] [address] Social History Tobacco Use Types Packs/Day Years [...] 10:12 EDT documented as of this encounter Plan of Treatment Upcoming Encounters Date Type Department Care Team (Late st Contact Info) Description 07/21/2024 11:00 EDT Office Visit [facility] Ophthalmology - [address] 530281 Marcial Magaña MD [address] [place] [address] 5 [place] [phone] 07/25/2024 11:00 EDT Phlebotomy Only [facility] Hematology & Oncology [address] 89[address] Blood Doctor, [facility] Hem Onc 07/25/2024 11:45 EDT Office Visit [facility] Hematology & Oncology [address] 385981 Abebe Ralph MD [address] [place] [address], [facility] [address] [place] [phone] 07/25/2024 12:30 EDT Appointment [facility] Hematology & Oncology - [address] [address]71 01/03/2025 16:20 EDT Appointment [facility] Breast Imaging Mammography - [address] [phone] documented as of this encounter Visit Diagnoses Not on filedocumented in this encounter
--- OUTSIDE RECORDS SUMMARY | 2024-04-19 08:14 | XMS_ITS | Encounter Summary ---
Author Organization [facility] Address [address] [place] [address] Care Team Providers Care Salon Designer Name Role Phone Rustam Alberto MD Primary Care Provider Unav ailable Reason for Visit * Reason Comments New Patient Visit Encounter Details Date Type Department Care Team (Latest Contact Info) Description 08/29/2016 16:30 EDT Office Visit [facility] Osteoporosis - [facility] [address] [place], [place] [phone] [place] [id number] [place] [address] [place] [address] Jorgito Garza MD Other osteoporosis; History of bisphosphonate therapy; Asymptomatic menopausal state Discharge Disposition: Auto Discharge Social History Tobacco Use Types Packs/Day Years Used Date Smoking Tobacco: Never Smokeless Tobacco: Never Alcohol Use Standard Drinks/Week Comments Yes 7 (1 standard drink = 0.6 oz pur e alcohol) Comments No Sex and Gender Information Value [...] - Inhaled Oxygen Concentration - - Weight 72.6 kg (160 lb) 08/29/2016 1631 EDT Height 164.5 cm (5' 4.76) 08/29/2016 1631 EDT Body Mass Index 26.82 08/29/2016 1631 EDT documented in this encounter Functional Status * Because of a physical, mental, or emotional condition, does this person have difficulty doing errands alone such as visiting a doctor's office or shopping? Answer Date of Assessment Author No 07/11/2016 15:00 EDT documented as of this encounter Mental Status * Because of a physical, mental, or emotional condition, does this person have serious difficulty concentrating, remembering, or making decisions? Answer Entry Date Author No 07/11/2016 15:00 EDT documented in this encounter Discharge Diagnoses Diagnosis M81.8 Other osteoporosis without current pathological fracture-M81.8[ICD-10-CM] Z78.0 Asymptomatic menopausal state-Z78.0[ICD-10-CM] Z92.29 Personal history of other drug therapy-Z92.29[ICD-10-CM] documented in this encounter Discharge Disposition Disposition Code Departure Means Destination Auto Discharge documented in this encounter Progress Notes * Estefany Miller - 08/29/2016 1630 EDT Procedure Date: 08/29/2016 Referring Physician: Roberto Carlos Landin MD Previous Scan Date: None at [facility] (Previous DXA at [facility] 04/15/2016) ABN Necessary: Yes (Patient Signed) Ht 164.5 cm (64.76) Wt 72.6 kg (160 lb) BMI 26.82 kg/m2 Done AP SPINE yes FEMUR yes TOTAL BODY FOREARM LVA/VFA HEEL US PATIENT HISTORY: Patient Active Problem List Diagnosis ??? Personal history of other malignant neoplasm of skin ??? Seborrheic keratoses Past Medical History: Diagnosis Date ??? Basal cell carcinoma 07/09/2007 Left lower eyelid Additional Comments: Previous/Prior Comparison? No Pharmacologic? Yes [facility] Patient Information Ethnicity/Race: Nutrition and Habits: Do you consume dairy? Yes Number of servings per day? 3 Do you take calcium supplements? No Amount? Do you drink 3 or more [...] wrist or ribs after age 45? Yes Patient History-Medications: Have you taken any of [...] age 38 No Area: Treatments: Alendronate (Fosamax) Presently (Fosamax use X 3 mos) , Date stopped: AprJun 2016 Calcitonin (Miacalcin) Never, Date stopped: Denosumab (Prolia) Never, Date stopped: Ibandronate (Boniva) Never, Date stopped: Pamidronate (Aredia) Never, Date stopped: Raloxifene (Evista) Never, Date stopped: Risendronate (Actonel) Never, Date stopped: Teriparatide (Forteo) Never (Starting after DXA done 08/29/2016), Date stopped: Zoledronic Acid (Reclast, Zomata) Never, Date stopped: Other: Never, Date stopped: For Women Only: What was your age at menopause? 48 Are you taking estrogen now or within the past year? Never, Date stopped: Have you been treated for breast cancer? Never Comments: Estefany Miller 08/29/2016 16:50 documented in this encounter Plan of Treatment Upcoming Encounters Date Type Department Care Team (Late st Contact Info) Description 07/21/2024 11:00 EDT Office Visit [facility] Ophthalmology - [address] [phone] Marcial Magaña MD 111 [facility], Level 5 [place] [phone] 07/25/2024 11:00 EDT Phlebotomy Only [facility] Hematology & Oncology [address] [phone] Blood Doctor, [facility] Hem Onc 07/25/2024 11:45 EDT Office Visit [facility] Hematology & Oncology [address] [phone] Abebe Ralph MD 111 [facility], Level 2 [place] [phone] 07/25/2024 12:30 EDT Appointment [facility] Hematology & Oncology [address] [phone] 01/03/2025 16:20 EDT Appointment [facility] Breast Imaging Mammography - [address] [phone] documented as of this encounter Procedures Procedure Name Priority Date/Time Associated Diagnosis Comments DXA DUAL XRAY ABSORPTIOMETRY FOR BONE DENSITY ([facility] PERFORMED) Routine 09/03/2016 11:01 EDT Other osteoporosis documented in this encounter Results * DXA-DUAL XRAY ABSORPTIOMETRY FOR BONE DENSITY (09/03/2016 11:01 EDT) DEXA Bone Density [facility] DEXA Bone Density, External [facility] Anatomical Region Laterality Modality Other 09/03/2016 11:0 1 EDT Roberto Carlos Landin MD IMG DEXA ORDERABLES Final Resul t documented in this encounter Visit Diagnoses Diagnosis Other osteoporosis History of bisphosphonate therapy Personal history of other drug therapy Asymptomatic menopausal state Asymptomatic postmenopausal status (age-related) (natural) Encounter for screening mammogram for malignant neoplasm of breast Other screening mammogram documented in this encounter Care Teams Salon Designer Relationship Specialty Start Date End Date Rustam Alberto MD PCP - General 11/26/10 08/10/18 documented as of this encounter
--- OUTSIDE RECORDS SUMMARY | 2024-04-19 08:14 | XMS_ITS | Encounter Summary ---
Author Organization [facility] Address [address] [place] [address] Care Team Providers Care Bottom Presser Name Role Phone Rustam Alberto MD Primary Care Provider Unav ailable Reason for Visit * Reason Onset Date Comments Results 09/08/2016 Encounter Details Date Type Department Care Team (Late st Contact Info) Description 09/08/2016 Telephone [facility] Rheumatology & Immunology - [facility] [address] [place] [address] Kim Rees MD Results Social History Tobacco Use Types Packs/Day [...] 07/11/2016 15:00 EDT documented in this encounter Miscellaneous Notes * Telephone Encounter - Kim Rees MD - 09/08/2016 1423 EDT Called patient, no answer, left voicemail, results of DXA scan from [facility] are similar to [facility] DXA scan. Should continue treatment with teriparatide documented in this encounter Plan of Treatment Upcoming Encounters Date Type Department Care Team (Late st Contact Info) Description 07/21/2024 11:00 EDT Office Visit [facility] Ophthalmology - [address] [phone] Marcial Magaña MD [address] [place] [address] [address] [place] [phone] 07/25/2024 11:00 EDT Phlebotomy Only [facility] Hematology & Oncology [address] [phone] Blood Doctor, [facility] Hem Onc 07/25/2024 11:45 EDT Office Visit [facility] Hematology & Oncology [address] [address] Abebe Ralph MD [address] [place] [address], [facility] [address] [place] [phone] 07/25/2024 12:30 EDT Appointment [facility] Hematology & Oncology - [address] [phone] 01/03/2025 16:20 EDT Appointment [facility] Breast Imaging Mammography - [address] [phone] documented as of this encounter Visit Diagnoses Not on filedocumented in this encounter Care Teams Bottom Presser Relationship Specialty Start Date End Date Rustam Alberto MD PCP - General 11/26/10 08/10/18 documented as of this encounter
--- OUTSIDE RECORDS SUMMARY | 2024-04-19 08:14 | XMS_ITS | Encounter Summary ---
Author Organization [facility] Address [address] [place] [address] Care Team Providers Care Clark Driver Name Role Phone Rustam Alberto MD Primary Care Provider Unav ailable Encounter Details Date Type Department Care Team (Late st Contact Info) Description 07/09/2016 Results Only Imaging [facility] [phone] Unknown, Provider, Social History Tobacco Use Types Packs/Day Years Used Date Smoking Tobacco: Never Smokeless Tobacco: Never Alcohol Use Standard Drinks/Week Comments Yes 0 (1 standard drink = 0.6 oz pur e alcohol) Comments Unknown Sex and Gender Information Value Date Recorded Sex Assigned at Female 09/10/2021 20:11 EDT Legal Sex Female 18:22 EST Gender Identity Female 02/23/2020 15:23 EST Sexual Orientation Straight 09/10/2021 20 :11 EDT documented as of this encounter Plan of Treatment Upcoming Encounters Date Type Department Care Team (Late st Contact Info) Description 07/21/2024 11:00 EDT Office Visit [facility] Ophthalmology - [address] [phone] Marcial Magaña MD [address] [place] [address], Level 5 [place] [phone] 07/25/2024 11:00 EDT Phlebotomy Only [facility] Hematology & Oncology [address] [phone] Blood Doctor, [facility] Hem Onc 07/25/2024 11:45 EDT Office Visit [facility] Hematology & Oncology [address] [phone] Abebe Ralph MD [address] [place] [address], [address] [place] [phone] 07/25/2024 12:30 EDT Appointment [facility] Hematology & Oncology [address] [phone] 01/03/2025 16:20 EDT Appointment [facility] Breast Imaging Mammography - [address] [phone] Pending Results Name Type Priority Associated Diagnoses Date /Time OUTSIDE IMAGES - DEXA BONE SCAN Imaging 07/09/2016 12:43 EDT documented as of this encounter Visit Diagnoses Not on filedocumented in this encounter Care Teams Clark Driver Relationship Specialty Start Date End Date Rustam Alberto MD PCP - General 11/26/10 08/10/18 documented as of this encounter
--- OUTSIDE RECORDS SUMMARY | 2024-04-19 08:14 | XMS_ITS | Encounter Summary ---
Author Organization [facility] Address [address] [place] [address] Care Team Providers Care Vehicle Service Agent Name Role Phone Rustam Alberto MD Primary Care Provider Unav ailable Reason for Visit * Reason Comments Medication Management started Forteo 08/21 06/06, side effects? Encounter Details Date Type Department Care Team (Latest Contact Info) Description 04/06/2017 13:00 EST Office Visit [facility] Osteoporosis - [address] [phone] Roberto Carlos Landin MD Other osteoporosis without current pathological fracture (Primary [...] Sign Reading Time Taken Comments Blood Pressure 170/82 04/06/2017 1326 EST Pulse 68 04/06/2017 1326 EST Temperature - - Respiratory Rate - - Oxygen Saturation - - Inhaled Oxygen Concentration - - Weight 74.4 kg (164 lb) 04/06/2017 1326 EST Height 163.8 cm (5' 4.5) 04/06/2017 1326 EST Body Mass Index 27.72 04/06/2017 1326 EST documented in this encounter Functional Status [...] documented in this encounter Progress Notes * Roberto Carlos Landin MD - 04/06/2017 1300 EST [facility] PROGRESS/FOLLOW UP NOTE PROBLEM: Osteoporosis. SUBJECTIVE: Ms. Garvey is a 66 y.o. year old female here for follow up of osteoporosis and treatment with teriparatide. She presented initially to [facility] in June due to a previous bone density done in March,. Due to patients concern regarding the accuracy of the initialtesting, the DXA was repeated here at [facility] in August. The initial DXA was performed on a Hologic device at [facility] and only measured the left hip. The repeat was done on Myandb iDXA and measured both hips. Therefore a true comparison cannot be made between the two studies. Date Spine L1-4 BMD Spine L1-4 T-score Total Hip BMD Total Hip T-Score Femoral Neck BMD Femoral Neck T-Score 04/15/16 0.606 -4.0 0.684 -2.1 0.528 -2.9 08/29/2016 0.737 -3.7 0.846 -1.3 0.710 -2.4 She had been prescribed alendronate shortly after the results were known but could not tolerate dueto diarrhea and muscle pain. Given the level of bone density, it was felt she would benefit from a two year course of teriparatide which was initially started on 09/02/16, 7 months ago. She developed some arthralgias, was not sure if related to medication. She was advised to hold but she did not andnow is here for follow up visit. The discomfort seems to occur in the legs which can occur at anytime but worse in a.m. Alma like a muscle fatigue as if she had been on feet all day. Also occasional sharp pain in leg but that has not occurred lately. Had one fall when she slipped on a slippery piece of cardboard. Injured elbow. No fractures. No injection site reactions. Taking calcium in diet and vitamin D supplements Had labs at [facility] on 10/06 with normal creatinine and calcium. . MEDICATIONS: Current Outpatient Prescriptions: acetaminophen (TYLENOL) 325 mg tablet Calcium Carbonate (TUMS ULTRA) 400 mg calcium (1,000 mg) tablet,chewable cholecalciferol, Vitamin D3, 1,000 unit tablet Lutein 10 mg tablet Multivitamins with Minerals tablet tablet OMEGA-3S/DHA/EPA/FISH OIL (OMEGA 3 ORAL) teriparatide 20 mcg/dose - 600 mcg/2.4 mL pen injector No current facility-administered medications for this visit. REVIEW OF SYSTEMS: Yes/No Yes/No Any broken bones in the past year No Kidney Insufficiency No Height Loss No Kidney Stones No Amount: Numbness/Tingling No Weight Change No Muscle Weakness No Gain or Loss? Amount: Diabetes No Lack of Regular Exercise No Overactive or Underactive Thyroid (hyper/hypothyroidism) No Dental problems or expected dental work No Overactive Parathyroid (high calcium in blood) No Muscle or Bone Pain leg cramps a few months ago Use of Steroid Medications No Joint Pain No Hormonal or Estrogen Therapy No Thigh Pain No Any falls during the past year 1x, slippery floor, landed on back, not injured exceptbruise on elbow Chest Pain No Do you avoid sun exposure No Palpitations No Vitamin D Supplements YES Shortness of Breath No Amount: 2000 iu/day Difficulty Swallowing No Calcium Supplements No Nausea/Vomiting Dizziness, nausea Amount: (TUMS, not regularly) Frequent Heartburn No Number of dairy servings per day 2 Stomach Pains/Cramps No OBJECTIVE: BP (!) 170/82 Pulse 68 Ht 163.8 cm (64.5) Wt 74.4 kg (164 lb) BMI 27.72 kg/m2 Constitutional: Healthy, alert and not in acute distress. HEENT: No eye redness or irritation. No conjunctival discoloration. No mouth lesions. Acceptable dentition. NECK: No palpable thyroid. RESPIRATORY: Clear / equal BS; no adventitious sounds bilaterally HEART: Regular rate and rhythm; no murmur. MUSCULOSKELETAL: Good ROM of spine in 4 directions. Ribs are 3 finger breadths above the iliac crest. Head to wall distance is 0 cm. No kyphosis. NEUROMUSCULAR: Able to stand and balance on toes and heels. Normal gait. Able to get up from chair without using hands. Able to do a full squat. Reflexes are symmetrical and normal amplitude in lowerextremities. No clonus. DIAGNOSTIC DATA: No results found for: RDWCV, RBC, PLT, WBC, LYMPHOPCT, HGB, HCT, NEUTOPHILPCT, MCH, LABMONO, MONOSABS, NEUTROABS, EOSPCT, BASOPCT, BASOSABS, LYMPHSABSNo results found for: EOSABS, MCHC, MCV, DIFFTYPE, CALCIUM, NA, SERGLU, CALCGFR, CL, CALCCA, TP, ALT, LABALBU, K, ALKPHOS, BUN, CREATININE, TBIL, AST, CO2, FASTFASTN2, CRP, CRPPNo results found for: RF, SEDRATE, CALCCA, CALCGFR, CREATININE, ANCA, ULYSSES, ANATITER, ANCATITER Imaging (excluding DXA): None ASSESSMENT: This patient has osteoporosis on the basis of significantly low bone density at the spine. She was started on teriparatide in August,, with the hope of increasing her bone density in reducing her risk of fracturing prior to more long-term anti-restorative therapy. She is having some leg pain which started after she started the teriparatide but not immediately. I am not sure if it is related but she does not have any evidence of nerve damage or myelopathy that would otherwise be acause for the discomfort. She is more than willing to remain on the teriparatide and she can tolerate the discomfort. Her examination is essentially normal. Lab work in September was normal. PLAN: 1. Continue teriparatide injections 20 ??g daily 2. Continue dietary calcium along with vitamin D supplementation. 3. We discussed the leg pain she is experiencing and that I felt it was benign. We also discussed the hoped for results from the treatment with teriparatide. 4. Follow-up in 9 months and then again in 18 months when she completes her course of teriparatide in August,. Roberto Carlos Landin MD 04/06/2017 13:52 documented in this encounter Plan of Treatment Upcoming Encounters Date Type Department Care Team (Late st Contact Info) Description 07/21/2024 11:00 EDT Office Visit [facility] Ophthalmology - [address] [phone] Marcial Magaña MD [address] [place] [address], [address] [place] [phone] 07/25/2024 11:00 EDT Phlebotomy Only [facility] Hematology & Oncology [address] [phone] Blood Doctor, [facility] Hem Onc 07/25/2024 11:45 EDT Office Visit [facility] Hematology & Oncology [address] [phone] Abebe Ralph MD [address] [place] [address], [address] [place] [phone] 07/25/2024 12:30 EDT Appointment [facility] Hematology & Oncology [address] [phone] 01/03/2025 16:[address] [facility] Breast Imaging Mammography - [address] [phone] documented as of this encounter Visit Diagnoses Diagnosis Other osteoporosis without current pathological fracture- Primary Encounter for screening mammogram for malignant neoplasm of breast Other screening mammogram documented in this encounter Discontinued Medications Medication Sig Discontinue Reason Start Date End Da te ASCORBATE CALCIUM (VITAMIN C ORAL) Take by mouth as needed. with vit A, zinc, pantothenic acid Patient Stopped Taking 04/06/2017 documented as of this encounter Historical Medications * This list may reflect changes made after this encounter. acetaminophen (TYLENOL) 325 mg tablet Take by mouth as needed for Pain. added in this encounter Care Teams Vehicle Service Agent Relationship Specialty Start Date End Date Rustam Alberto MD PCP - General 11/26/10 08/10/18 documented as of this encounter
--- OUTSIDE RECORDS SUMMARY | 2024-04-19 08:14 | XMS_ITS | Encounter Summary ---
Author Organization [facility] Address [address] [place] [address] Care Team Providers Care E Commerce Developer Name Role Phone Rustam Alberto MD Primary Care Provider Unav ailable Encounter Details Date Type Department Care Team (Late st Contact Info) Description 09/03/2016 Orders Only [address] [phone] Roberto Cralos Landin MD Social History Tobacco Use Types Packs/Day [...] 07/11/2016 15:00 EDT documented in this encounter Plan of Treatment Upcoming Encounters Date Type Department Care Team (Late st Contact Info) Description 07/21/2024 11:00 EDT Office Visit [facility] Ophthalmology - [address] [phone] Marcial Magaña MD [address] [place] [address], [facility] 5 [place] [phone] 07/25/2024 11:00 EDT Phlebotomy Only [facility] Hematology & Oncology [address] [phone] Blood Doctor, [facility] Hem Onc 07/25/2024 11:45 EDT Office Visit [facility] Hematology & Oncology [address] [phone] Abebe Ralph MD [address] [place] [address], Level [address] [place] [phone] 07/25/2024 12:30 EDT Appointment [facility] Hematology & Oncology [address] [phone] 01/03/2025 16:20 EDT Appointment [facility] Breast Imaging Mammography - [address] [phone] documented as of this encounter Visit Diagnoses Not on filedocumented in this encounter Care Teams E Commerce Developer Relationship Specialty Start Date End Date Rustam Alberto MD PCP - General 11/26/10 08/10/18 documented as of this encounter
--- OUTSIDE RECORDS SUMMARY | 2024-04-19 08:14 | XMS_ITS | Encounter Summary ---
Author Organization [facility] Address [address] [place] [address] Care Team Providers Care Drawing In Hand Name Role Phone Rustam Alberto MD Primary Care Provider Unav ailable Reason for Visit * Reason Comments Follow-up Skin check with a hi story of basal cell carcinoma. Patient has a few spots of concern Encounter Details Date Type Department Care Team (Late st Contact Info) Description 11/25/2011 10:45 EDT Office Visit [facility] Dermatology 3rd Floor [facility] [address], [place] [phone] Timmy Lou MD [address] [place] [phone] Seborrheic keratosis (Primary Dx); History of basal cell cancer Social History Tobacco Use Types Packs/Day Years Used Date Smoking Tobacco: Never Alcohol Use Standard Drinks/Week Comments Yes 0 (1 standard drink = 0.6 oz pur e alcohol) Comments Unknown Sex and Gender Information Value Date Recorded Sex Assigned at Female 09/10/2021 20:11 EDT Legal Sex Female 18:22 EST Gender Identity Female 02/23/2020 15:23 EST Sexual Orientation Straight 09/10/2021 20 :11 EDT documented as of this encounter Patient Instructions * Patient Instructions* Cesar Garcia MD - 11/25/2011 11:13 EDT SUN PROTECTION AND SUN SCREENS Repeated and prolonged exposure to sunlight greatly increases your risk of all types of skin cancer. In addition, chronic sun exposure is the major cause of wrinkles, spotty, unhealthy appearing skin. It???s important to have a healthy and active lifestyle and we encourage you to continue this. However, some common sense guidelines will help to keep your skin and eyes safe. ?? Avoid the hot mid-day sun. Try to schedule your outdoor activities for acid remover or early evening. ?? Make clothing a regular part of protection. Keep your shirt on- wear long sleeves and a wide brimmed hat. ?? Be especially careful when on the water, snow or sand as sunlight is reflected upwards from these surfaces. ?? Don???t forget your eyes! Wear sunglasses- Sun exposure increases your risk for cataracts. ?? Make sure your children practice good sun protection. Early sun damage increases their risk of developing skin cancer. ?? Wear a sunscreen. We recommend using a sunscreen with both UVA and UVB protection and a SPF of at least 15. If you sunburn more easily or are in more intense sun, you will need a higher SPF. A ???waterproof?? sunscreen is usually good for about 4 hours, even if you???re swimming. A ???water resistant?? sunscreen should be reapplied every 2 hours and after swimming. Remember to put sunscreen on your ears and lips. There are many lip balms available with sunscreen. For more information about sun protection and skin cancer: www.skincancer.org Sunscreens: Sunlight is made up of different wavelengths, some of which we can see as the various colors of therainbow, or ???visible?? light. UVA and UVB are invisible wavelengths, which penetrate into the skin and in excess amounts, cause injury. When the injury is severe, skin cells and become inflamed and we see sunburn. UVB causes sunburn more quickly than UVA and most sunscreens are targeted towards this wavelength. Tanning while wearing sunscreen may mean that primarily UVA light is reaching the skin. This is the same UVA light that is used in tanning beds and is responsible for causing wrinkles, brown spots and possibly melanoma. For this reason, we recommend that you don???t use tanning b eds and that you use sunscreen with both UVA and UVB protection. Most sunscreen ingredients are good at blocking UVB light. The only ingredients that also do a goodjob blocking UVA light are listed below. Make sure your sunscreen contains one of these ingredients. CAUTION: in some people Parasol may cause staining of white clothing. ?? Parasol (avobenzone) ?? Zinc Oxide ?? See other side for sunscreen recommendationsTitanium Oxide Some recommended brands: ?? Blue Lizard Baby suncream - SPF 30 o Contains titanium dioxide and zinc oxide and is chemical/fragrance free o Good for sensitive skin and babies ?? Coppertone Spectra - SPF 30 and 50 o Contains zinc oxide ?? Coppertone Sport - SPF 30 and 50 o ???Sweatproof? Neutrogena Ultra Sheer Dry Touch - SPF 30, 45, 55, 70 and 85 o Sensitive skin formula available ?? NO-AD Sunblock - SPF 30 o Sensitive skin formula available ?? [place]-Posay Anthelios - SPF 40 o Long acting sunscreen with excellent UVA and UVB coverage ?? Bullfrog - SPF 36 o ???[place]?? and ???Sweatproof?? o Alcohol based - goes on quickly and good for skin with hair Good ???everyday?? moisturizer for the face: ?? Oil of Olay Complete Sun Protection - SPF 15 ?? Cetaphil daily facial moisturizer - SPF 15 ?? [place]-Posay Anthelios SX - SPF 15 documented in this encounter Progress Notes * Keisha Palomino - 11/25/2011 1056 EDT A complete 12 point review of systems was obtained and reviewed. All systems are negative except for: heartburn Keisha Palomino 11/25/2011 10:56 Cesar Garcia MD 11/25/2011 11:12 * Cesar Garcia MD - 11/25/2011 1054 EDT Dermatology Outpatient Clinic Note 11/25/2011 CC: skin check Skin cancer history: 1. basal cell carcinoma - left lower eyelid - s/p mohs 2007 HPI: Patient is a 61 year old female who presents for a skin check. History as noted above, a few new rough spots on the arms and chest looked at today. They have not been bleeding, itching, or changing. No interval health status changes, otherwise doing well. See documentation in PRISM for medical, surgical, social and family history, which were reviewed atthis visit. Present medications, allergies, review of systems are also documented and were all reviewed at this visit. EXAM: Well appearing, well groomed in no acute distress, patient is alert and oriented to person, place, and time. Complete skin exam of the scalp, face, neck, chest, back, abdomen, buttocks, upper and lower extremities, hands, feet, nails and digits was performed. The examination was normal with addition to the following comments: Numerous waxy brown stuck on appearing papules on the trunk and extremities, left lower eyelid had a well healed Moh's surgical scar without any evidence of nodularity or recurrence, there were no lesions suspicious for malignancy IMP: 1. Seborrheic keratosis 2. History of basal cell carcinoma PLAN: 1. Patient was reassured about the benign nature of the exam today 2. The nature of sun-induced photo-aging and skin cancers is discussed. Sun avoidance, protective clothing, and the use of 30-SPF sunscreens is advised. Observe closely for skin damage/changes, and call if such occurs. ABCDE of melanoma were reviewed. Follow-up in 1 year Cesar aGrcia MD 11/25/2011 10:54 Attestation statement: I saw and examined the patient with the resident/fellow during the visit documented above. I agree with the findings and plan of care documented in the resident's/fellow's note. TIMMY LOU MD 11/25/2011 15:55 documented in this encounter Plan of Treatment Upcoming Encounters Date Type Department Care Team (Late st Contact Info) Description 07/21/2024 11:00 EDT Office Visit [facility] [place] [address] Marcial Magaña MD [address] [place] [address], [address] [place] [phone] 07/25/2024 11:00 EDT Phlebotomy Only [facility] Hematology & Oncology [address] [phone] Blood Doctor, [facility] Hem Onc 07/25/2024 11:45 EDT Office Visit [facility] Hematology & Oncology [address] [phone] Abebe Ralph MD [address] [place] [address], Level [address] [place] [phone] 07/25/2024 12:30 EDT Appointment [facility] Hematology & Oncology [address] [address] 01/03/2025 16:20 EDT Appointment [facility] Breast Imaging Mammography - [address] [phone] documented as of this encounter Visit Diagnoses Diagnosis Seborrheic keratosis- Primary Other seborrheic keratosis History of basal cell cancer Personal history of other malignant neoplasm of skin Encounter for screening mammogram for malignant neoplasm of breast Other screening mammogram documented in this encounter Historical Medications * This list may reflect changes made after this encounter. Flaxseed Powd Take by mouth. 12/12/2014 added in this encounter Care Teams Drawing In Hand Relationship Specialty Start Date End Date Rustam Alberto MD PCP - General 11/26/10 08/10/18 documented as of this encounter
--- OUTSIDE RECORDS SUMMARY | 2024-04-19 08:14 | XMS_ITS | Encounter Summary ---
Author Organization [facility] Address [address] [place] [address] Care Team Providers Care Bakelite Molder Name Role Phone Rustam Alberto MD Primary Care Provider Unav ailable Reason for Visit * Reason Onset Date Comments Coordination Of Care 08/22/2016 has some qu estions Encounter Details Date Type Department Care Team (Late st Contact Info) Description 08/22/[address] [address] Kim Rees MD Coordination Of Care (has some questions ) Social History Tobacco Use Types Packs/Day Years [...] encounter Miscellaneous Notes * Telephone Encounter - Lora Padilla RN - 08/27/2016 1025 EDT I left message with patient that Forteo has been approved;,ok to proceed with RX. Assured she should calls us if further questions. * Telephone Encounter - Danya Avendano - 08/27/2016 0720 EDT Forteo has been approved 05.28.16 through 08.26.2017. * Telephone Encounter - Kim Rees MD - 08/26/2016 1025 EDT Spoke with patient, she would like to know when teriparatide will be approved, she received a voicemail from our office, we need updated information about her insurance. She called our office this morning did not want to leave voicemail, will try to call again later today. * Telephone Encounter - Kim Rees MD - 08/25/2016 1645 EDT Called patient, no answer, will try again later * Telephone Encounter - Bucky Michel - 08/22/2016 0950 EDT Patient has some concerns and questions regarding her Diagnosis. Also I scheduled her today for herbone scan as she stated she did not hear from anyone on this. She is scheduled for 08.29.16 . She is also wondering about the status of her insurance on medication Forteo documented in this encounter Plan of Treatment Upcoming Encounters Date Type Department Care Team (Late st Contact Info) Description 07/21/2024 11:00 EDT Office Visit [facility] Ophthalmology - [address] [phone] Marcial Magaña MD [address] [place] [address], [facility] [address] [place] [phone] 07/25/2024 11:00 EDT Phlebotomy Only [facility] Hematology & Oncology [address] [phone] Blood Doctor, [facility] Hem Onc 07/25/2024 11:45 EDT Office Visit [facility] Hematology & Oncology [address] [phone] Abebe Ralph MD [address] [place] [address], [address] [place] [phone] 07/25/2024 12:30 EDT Appointment [facility] Hematology & Oncology [address] [address] 01/03/2025 16:20 EDT Appointment [facility] Breast Imaging Mammography - [address] [phone] documented as of this encounter Visit Diagnoses Not on filedocumented in this encounter Care Teams Bakelite Molder Relationship Specialty Start Date End Date Rustam Alberto MD PCP - General 11/26/10 08/10/18 documented as of this encounter
--- OUTSIDE RECORDS SUMMARY | 2024-04-19 08:14 | XMS_ITS | Encounter Summary ---
Author Organization [facility] Address [address] [place] [address] Care Team Providers Care Calendar Control Clerk Blood Bank Name Role Phone Rustam Alberto MD Primary Care Provider Unav ailable Reason for Visit * Reason Comments Skin Exam FBSE, no concerns, h /o BCC; SK Encounter Details Date Type Department Care Team (Late st Contact Info) Description 12/06/2013 15:15 EDT Office Visit [facility] Dermatology 5th Floor [facility] [address] [place] [address] Cameron Garner MD [address] [place] [address] [place] [phone] Seborrheic keratosis (Primary Dx); Nevus; History of basal cell carcinoma Social History Tobacco Use Types Packs/Day Years [...] :11 EDT documented as of this encounter Discharge Diagnoses Diagnosis 216.5 BENIGN JOVI SKIN TRUNK[ICD-9-CM] 702.19 SEBORRHEIC KERATOSIS NOS[ICD-9-CM] V10.83 PERS HX SKIN MALIGNANCY NEC[ICD-9-CM] documented in this encounter Patient Instructions * Patient Instructions* Sheila Fernando MD - 12/06/2013 15:28 EDT Recommendations for Sun Protection Ultraviolet (UV) radiation is a known carcinogen (cancer-causing agent) and is primarily responsible for most skin cancers, including Basal Cell Carcinoma, Squamous Cell Carcinoma, and many Melanomas. UV radiation also rapidly ages the skin, leading to wrinkles, uneven color, and poor texture. Minimizing UV exposure has been shown in multiple studies to decrease the likelihood of developing cancers and pre-cancers of the skin, as well as improve overall appearance. To minimize UV exposure: 1) Avoid exposure to sunlight during the middle of the day (10am to 4pm). Seek shade when outside during these hours. Limit outdoor activities to deputy coroner and/or evening hours when the sunlight is less intense. Remember that UV is reflected from water and snow, and can pass through window glass. It is still possible to get burned during cloudy weather and in the winter months. You can check the forecast for the UV Index in your area at most weather sites online. If the UV index is 3 or higher, sun protection/avoidance is recommended. 2) Wear protective clothing. Hats with wide brims that cover the ears and neck, sunglasses (sun exposure increases your risk for cataracts), long-sleeved shirts, long pants, and closed-top shoes offer good protection. Many makers of outdoor clothing test their fabrics for UV Protection Factor (UPF), which is a guide to the level of protection a particular item of clothing should provide. In general, loose weaves (Cotton) and double back operator-colored fabrics offer less protection than tighter weaves or darker/thicker fabrics. It is possible to get a sunburn through clothing, especially if it is wet. 3) Use sunscreen on exposed areas. Choose a sunscreen that has a Sun Protection Factor (SPF) of 30+or higher. Apply the sunscreen generously (so much that you can barely rub it in) to exposed areas 30 minutes before sun exposure. Reapply every 2-3 hours, especially if you are in water or sweating.If you tend to break out from sunscreen, choose a sunscreen designed for Sensitive Skin and/or one with physical blocking agents, such as Zinc Oxide and Titanium Dioxide. For vigorous activity, look for Sport sunscreens, which are resistant to sweating. 4) Avoid artificial sources of UV, such as tanning beds or sun lamps. The UV emitted by these devices is just as damaging, if not more so, than natural sunlight. There is a well-documented increase in the incidence of all common skin cancers in frequent tanning bed users. Other considerations: Vitamin D: Exposure to UV light is one of the ways your body gets Vitamin D, a necessary nutrient. Other sources are from the diet and/or dietary supplements. If you are actively avoiding the sun, itmay be advisable to discuss Vitamin D supplementation with your Primary Care Provider (PCP). In general, taking a supplement of 1,000 to 2,000 International Units (IU) of Vitamin D3 is safe and well-tolerated in individuals who get minimal sun exposure and have normal kidney function. However, moreor less Vitamin D may be recommended, depending on your individual needs, and the use of such supplements should be discussed with your PCP. For more information about sun protection and skin cancer: www.skincancer.org Recommended sunscreens: Chemical sunscreen Neutrogena Ultra Sheer Dry Touch (helioplex) Aveeno (same sunscreen as in Neutrogena) Coppertone Sport [place]-Posay Anthelios (mexoryl -good UVA and UVB) Vichy (mexoryl - available in Farrah) Gel formulations good for hair bearing skin Bullfrog Alcohol based - goes on quickly and good for skin with hair Solbar Physical sunblock good for sensitive skin (titanium dioxide and zinc oxide chemical/fragrance free) Blue Lizard sensitive COTZ TiZO (comes in tinted form) Neutrogena pure and free baby or sensitive Recommended sun protection clothing websites www.sunprecautions.com www.coolibar.com www.[employer].TNC www.[employer].TNC documented in this encounter Progress Notes * Sheila Fernando MD - 12/06/2013 5329 EDT Dermatology Outpatient Follow-up Visit Note Chief Complaint Patient presents with ??? Skin Exam FBSE, no concerns, h/o BCC; SK Dermatologic History: 1. basal cell carcinoma, left lower eyelid s/p Mohs 2007 Last Dermatology office visit: 11/2012 History of Present Illness: Ms. Garvey is a 63 y.o. female who presents for complete skin exam today. She denies any new, changing, bleeding, tender, or non-healing skin lesions today. She has been in good health over the past year. For full Medical, Surgical, Family, and Social histories, please see the History section of this encounter in the electronic chart which I have personally reviewed. For Review of Systems, Medications and Allergies, please see those sections of this encounter in the electronic chart which I have also reviewed. She has a current medication list which includes the following prescription(s): acetaminophen, calcium carbonate/vitamin d3, docosahexanoic acid/epa, flaxseed, ibuprofen, triamcinolone, and vitamin e. She is allergic to cats and melatonin. Objective: Physical Exam: Jeffery is a healthy and well developed, well-nourished female. She is in no apparent distress. She is alert and oriented to person, place and time. She has Awad type II skin. Cutaneous full body examination including the hair, scalp, face, eyelids, lips, neck, chest, back, abdomen, all four extremities, hands, feet, digits and nails was performed. The examination was normal with the addition of the following comments: There is a well-healed scar with no ulceration or nodularity on the left lower eyelid. There are multiple 0.3 - 0.8 cm light pink and brown, soft, fleshy papules and multiple brown verrucous stuck-on appearing papules and plaques on the trunk and extremities. There are n o lesions concerning for malignancy on the skin exam today. Assessment: 1. Multiple benign appearing nevi on the trunk and extremities 2. Multiple seborrheic keratoses on the trunk and extremities 3. History of basal cell carcinoma, left lower eyelid s/p Mohs 2007 with no evidence of recurrence on skin exam today Plan: 1. Reassurance regarding the benign nature of the skin exam today was provided. All of the patient's questions and concerns were addressed. The nature of sun- induced photo-aging and skin cancers is discussed. Sun avoidance, protective clothing, and the use of 30-SPF sunscreens is advised. Observe closely for skin damage/changes, and call if such occurs. The patient will follow up in 1 year for complete skin exam or sooner should any new problems or concerns arise. Sheila Fernando MD 12/06/2013 15:29 Attestation Statement: I saw and examined the patient with the resident/fellow. I agree with the findings and plan of care documented in the resident's/fellow's note. Cameron Garner MD * Marissa Nichols - 12/06/2013 1502 EDT Review of Systems Constitutional: Negative for fever, fatigue and unexpected weight change. HENT: Negative for mouth sores. Eyes: Negative for pain. Respiratory: Negative for cough and shortness of breath. Cardiovascular: Negative for chest pain and palpitations. Gastrointestinal: Negative for nausea, vomiting, abdominal pain, diarrhea, constipation and blood in stool. Genitourinary: Negative for dysuria, frequency and hematuria. Musculoskeletal: Negative for myalgias, joint swelling, arthralgias and muscle stiffness in the morning. Skin: Negative for rash. Neurological: Negative for numbness and headaches. Endo/Heme/Allergies: Does not bruise/bleed easily. Psychiatric/Behavioral: Negative for sleep disturbance. The patient is not nervous/anxious. Liborionemo Magdalena 15:02 12/06/2013 Mixed Signal Design Engineer, Dermatology Sheila Fernando MD 12/06/2013 15:28 documented in this encounter Plan of Treatment Upcoming Encounters Date Type Department Care Team (Late st Contact Info) Description 07/21/2024 11:00 EDT Office Visit [facility] Ophthalmology [address] [phone] Marcial Magaña MD [address] [place] [address], [address] [place] [phone] 07/25/2024 11:00 EDT Phlebotomy Only [facility] Hematology & Oncology [address] [address] Blood Doctor, [facility] Hem Onc 07/25/2024 11:45 EDT Office Visit [facility] Hematology & Oncology - [address] [phone] Abebe Ralph MD [address] [facility], [facility] [address] [place] [phone] 07/25/2024 12:30 EDT Appointment [facility] Hematology & Oncology - [address] [phone] 01/03/2025 16:20 EDT Appointment [facility] Breast Imaging Mammography - [address] [phone] documented as of this encounter Visit Diagnoses Diagnosis Seborrheic keratosis- Primary Other seborrheic keratosis Nevus Benign neoplasm of skin, site unspecified History of basal cell carcinoma Personal history of other malignant neoplasm of skin Encounter for screening mammogram for malignant neoplasm of breast Other screening mammogram documented in this encounter Care Teams Calendar Control Clerk Blood Bank Relationship Specialty Start Date End Date Rustam Alberto MD PCP - General 11/26/10 08/10/18 documented as of this encounter
--- OUTSIDE RECORDS SUMMARY | 2024-04-19 08:14 | XMS_ITS | Encounter Summary ---
Author Organization [facility] Address [address] [place] [address] Care Team Providers Care Ore Feeder Name Role Phone Rustam Alberto MD Primary Care Provider Unav ailable Encounter Details Date Type Department Care Team (Late st Contact Info) Description 12/06/2009 Abstract [facility] Dermatology 5th Floor [address] [address] Lora Lou MD [address] [place] [address] Social History Tobacco Use Types Packs/Day Years [...] 07/21/2024 11:00 EDT Office Visit [facility] Ophthalmology - [address] [address] Marcial Magaña MD [address] [facility] [address] [place] [phone] 07/25/2024 11:00 EDT Phlebotomy Only [facility] Hematology & Oncology [address] [address] Blood Doctor, [facility] Hem Onc 07/25/2024 11:45 EDT Office Visit [facility] Hematology & Oncology [address] [phone] Abebe Ralph MD [address] [place] [address], Level [address] [place] [phone] 07/25/2024 12:30 EDT Appointment [facility] Hematology & Oncology [address] [phone] 01/03/2025 16:20 EDT Appointment [facility] Breast Imaging Mammography - [address] [phone] documented as of this encounter Visit Diagnoses Not on filedocumented in this encounter Historical Medications * This list may reflect changes made after this encounter. DOCOSAHEXANOIC ACID/EPA (FISH OIL ORAL) Take by mouth daily. 12/06/2009 12/12/2014 Vitamin E 400 unit Tab Take by mouth daily. 12/06/2009 12/12/2014 ibuprofen (MOTRIN) 200 mg tablet Take 200 mg by mouth every 6 hours as needed. 12/12/2014 acetaminophen (TYLENOL) 325 mg tablet Take 325 mg by mouth every 4 hours as needed. 12/06/2009 07/11/2016 added in this encounter Care Teams Ore Feeder Relationship Specialty Start Date End Date Rustam Alberto MD PCP - General 09/06/08 06/25/10 documented as of this encounter
--- OUTSIDE RECORDS SUMMARY | 2024-04-19 08:14 | XMS_ITS | Encounter Summary ---
Author Organization [facility] Address [address] [place] [address] Care Team Providers Care Advanced Manufacturing Associate Name Role Phone Rustam Alberto MD Primary Care Provider Unav ailable Reason for Visit * Reason Onset Date Comments Medication Management 07/30/2017 Encounter Details Date Type Department Care Team (Late st Contact Info) Description 07/30/2017 Telephone [facility] [address] [place] [address] Emma Correa, engineer conductor Management Social History Tobacco Use Types Packs/Day [...] 07/11/2016 15:00 EDT documented in this encounter Ordered Prescriptions Prescription Sig Dispense Quantity Refills Last Filled Start Date End Date teriparatide 20 mcg/dose - 600 mcg/2.4 mL pen injector Inject 0.08 mL into the skin daily. 7.2 mL 3 08/19/2017 07/13/2018 documented in this encounter Miscellaneous Notes * Telephone Encounter - Emma Correa RN - 11/18/2017 1438 EDT Spoke with patient. She is continuing Forteo injections. Her pain & fatigue continues. * Addendum Note - Emma Correa RN - 08/19/2017 0859 EDTAddended by: EMMA CORREA on: 08/19/2017 08:59 Modules accepted: Orders * Telephone Encounter - Emma Correa RN - 08/19/2017 0850 EDT Received voicemail from patient. She decided to stay on Forteo after a discussion with her PCP about tolerating drugs and their side effects. * Telephone Encounter - Roberto Carlos Landin MD - 08/03/2017 1249 EDT The only reason to repeat this soon is if results would change treatment. The only change would be that if it showed a major increase in density, she would be willing to stay on teriparatide. If she would consider that or trying Tymlos which is similar medication, DXA might be justified but not if we are changing to other medication. * Telephone Encounter - Emma Correa RN - 08/03/2017 0905 EDT Patient accepted appt with Dr. Landin 09/04/17. She asked if DXA could be repeated that day. Previous DXA was 1 year ago when started Forteo. * Telephone Encounter - Emma Correa RN - 08/02/2017 1950 EDT Received voicemail from patient. She read about Prolia and is very concerned about potential side effects. She can't do it because there are too many negatives. She read about sleeplessness, higher cholesterol and hot flashes. Wants to discuss the next step and will continue with Forteo in the meantime. Wants an option that she can tolerate both emotionally and physically. I left a message for patient, offered a sooner appointment with Dr. Landin. * Telephone Encounter - Roberto Carlos Landin MD - 07/30/2017 1644 EDT I would recommend that we move her December appointment up to August (assuming appointment availability) to discuss switching to another medication. If she is in agreement, I would proceed with preauthorization of denosumab and she could have first injection at time of visit if she is in agreement. I'll sign medication authorization order if she agrees to plan. * Telephone Encounter - Emma Correa RN - 07/30/2017 1249 EDT Received call from patient. She decided to stop Forteo. Took it for 11 months. Can no longer tolerate the constant pain and fatigue in her legs, as well as overall fatigue. It is affecting her quality of life. She was in [place] for 10 days, did not take Forteo, walked 11 miles daily without any leg fatigue or pain. But the symptoms returned 3 days after restarting Forteo. Office note from last year mentioned option of Prolia; patient did not tolerate fosamax. documented in this encounter Plan of Treatment Upcoming Encounters Date Type Department Care Team (Late st Contact Info) Description 07/21/2024 11:00 EDT [facility] Ophthalmology - [address] 232211 Marcial Magaña MD [address] [place] [address], [facility] [address] [place] [phone] 07/25/2024 11:00 EDT Phlebotomy Only [facility] Hematology & Oncology [address] [phone] Blood Doctor, [facility] Hem Onc 07/25/2024 11:45 EDT Office Visit [facility] Hematology & Oncology [address] [phone] Abebe Ralph MD [address] [place] [address], [address] [place] [phone] 07/25/2024 12:30 EDT Appointment [facility] Hematology & Oncology [address] [id number] 01/03/2025 16:20 EDT Appointment [facility] Breast Imaging Mammography - [address] [phone] documented as of this encounter Visit Diagnoses Not on filedocumented in this encounter Discontinued Medications Medication Sig Discontinue Reason Start Date End Da te teriparatide 20 mcg/dose - 600 mcg/2.4 mL pen injector Inject 0.08 mL into the skin daily. Reorder 09/25/2016 08/19/2017 documented as of this encounter Care Teams Advanced Manufacturing Associate Relationship Specialty Start Date End Date Rustam Alberto MD PCP - General 11/26/10 08/10/18 documented as of this encounter
--- OUTSIDE RECORDS SUMMARY | 2024-04-19 08:14 | XMS_ITS | Encounter Summary ---
Author Organization [facility] Address [address] [place] [address] Care Team Providers Care Screen And Cyclone Repairer Name Role Phone Rustam Alberto MD Primary Care Provider Unav ailable Reason for Visit * Reason Comments Skin Exam FBSE, h/o BCC. spots of concern on back, R upper arm, and back of L arm Encounter Details Date Type Department Care Team (Late st Contact Info) Description 12/17/2015 14:00 EDT Office Visit [facility] Dermatology 3rd Floor [facility] [address] [place] [address] Cameron Garner MD [address] [place] [phone] Seborrheic keratoses (Primary Dx); History of nonmelanoma skin cancer Social History Tobacco Use Types Packs/Day [...] as of this encounter Discharge Diagnoses Diagnosis L82.1 Other seborrheic keratosis-L82.1[ICD-10-CM] Z85.828 Personal history of other malignant neoplasm of skin-Z85.828[ICD-10-CM] documented in this encounter Progress Notes * Cameron Garner MD - 12/17/2015 1408 EDT Dermatologic History: 1. basal cell carcinoma, left lower eyelid s/p Mohs 2007 Last seen S Check up. Scalp face neck trunk and 4 exts seen Scattered stuck on brown papules c/w melanie keratosis Reddened excoriated macule left upper back A/P 1. Melanie keratoses - reassure 2. Hx BCC 3. Excoriation left upper back - reassure Sun protection. rtc 2 yr/prn Cameron Garner MD ?? * Nai Rick - 12/17/2015 1340 EDT Review of Systems Constitutional: Negative for [...] disturbance. The patient is not nervous/anxious. Nai Rick 12/17/2015 13:40 documented in this encounter Plan of Treatment Upcoming Encounters Date Type Department Care Team (Late st Contact Info) Description 07/21/2024 11:00 EDT Office Visit [facility] Ophthalmology - [address] [phone] Marcial Magaña MD [address] [facility], [address] [place] [phone] 07/25/2024 11:00 EDT Phlebotomy Only [facility] Hematology & Oncology - [address] 415121 Blood Doctor, [facility] Hem Onc 07/25/2024 11:45 EDT Office Visit [facility] Hematology & Oncology [address] [phone] Abebe Ralph MD [address] [place] [address], [address] [place] [phone] 07/25/2024 12:30 EDT Appointment [facility] Hematology & Oncology [address] [id number] 01/03/2025 16:20 EDT Appointment [facility] Breast Imaging Mammography - [address] [phone] documented as of this encounter Visit Diagnoses Diagnosis Seborrheic keratoses- Primary History of nonmelanoma skin cancer Personal history of other malignant neoplasm of skin Encounter for screening mammogram for malignant neoplasm of breast Other screening mammogram documented in this encounter Historical Medications * This list may reflect changes made after this encounter. UNABLE TO FIND daily. Med Name: patient reports taking [employer] for her eyes 7 added in this encounter Care Teams Screen And Cyclone Repairer Relationship Specialty Start Date End Date Rustam Alberto MD PCP - General 11/26/10 08/10/18 documented as of this encounter
--- OUTSIDE RECORDS SUMMARY | 2024-04-19 08:14 | XMS_ITS | Encounter Summary ---
Author Organization [facility] Address [address] [place] [address] Care Team Providers Care Weaving Inspector Name Role Phone Rustam Alberto MD Primary Care Provider Unav ailable Reason for Referral * (Routine) - Closed Specialty Diagnoses / Procedures Referred By Contac t Referred To Contact Diagnoses Other osteoporosis Procedures DXA-DUAL XRAY ABSORPTIOMETRY FOR BONE DENSITY Roberto Carlos Landin MD Referral ID Status Reason Start Date Expiration Date Visits Re quested Visits Authorized [id number] Closed 08/05/2016 1 1 Reason for Visit * Reason Onset Date Comments Results 08/04/2016 Encounter Details Date Type Department Care Team (Late st Contact Info) Description 08/04/2016 Telephone [facility] Rheumatology & Immunology - [facility] [address] [place] [address] Kim Rees MD Results Social [...] Telephone Encounter - Kim Rees MD - 08/04/2016 1500 EDT Spoke with patient, PTH is normal 22, negative screening for celiac disease, urine 24 h calcium WNL. It looks like lab error occur when she had her blood work done in June. Patient is concern that her DXA scan that was done in outside facility could be inaccurate, she is requesting repeat DXA in [facility] , willing to pay for it since she understand that her insurance will not, states that she is very reluctant to take medication for osteoporosis if there is possibility of error. The original study from [facility] in our PACs system and Dr. Landin have personally reviewed it. ??It is technically well done and he would not recommend repeat one. Despite our recommendation patient would like to have repeat DXA, will place an order. documented in this encounter Plan of Treatment Upcoming Encounters Date Type Department Care Team (Late st Contact Info) Description 07/21/2024 11:00 EDT Office Visit [facility] Ophthalmology [address] [phone] Marcial Magaña MD [address] [place] [address], [address] [place] [phone] 07/25/2024 11:00 EDT Phlebotomy Only [facility] Hematology & Oncology [address] [phone] Blood Doctor, [facility] Hem Onc 07/25/2024 11:45 EDT Office Visit [facility] Hematology & Oncology [address] [phone] Abebe Ralph MD [address] [facility], [address] [place] [phone] 07/25/2024 12:30 EDT Appointment [facility] Hematology & Oncology [address] [phone] 01/03/2025 16:20 EDT Appointment [facility] Breast Imaging Mammography - [address] [phone] documented as of this encounter Results * DXA-DUAL XRAY ABSORPTIOMETRY FOR BONE DENSITY (09/03/2016 11:01 EDT) DEXA Bone Density [facility] DEXA Bone Density, External [facility] Anatomical Region Laterality Modality Other 09/03/2016 11:0 1 EDT Roberto Carlos Landin MD IMG DEXA ORDERABLES Final Resul t documented in this encounter Visit Diagnoses Diagnosis Other osteoporosis- Primary Encounter for screening mammogram for malignant neoplasm of breast Other screening mammogram documented in this encounter Care Teams Weaving Inspector Relationship Specialty Start Date End Date Rustam Alberto MD PCP - General 11/26/10 08/10/18 documented as of this encounter
--- OUTSIDE RECORDS SUMMARY | 2024-04-19 08:14 | XMS_ITS | Encounter Summary ---
Author Organization [facility] Address [address] [place] [address] Care Team Providers Care Maintenance Craftsman Name Role Phone Rustam Alberto MD Primary Care Provider Unav ailable Shruti Garcia Primary Care Provider [phone] Encounter Details Date Type Department Care Team (Late st Contact Info) Description 06/25/2010 Results Only [facility] Laboratory Services - [facility] ([facility] [address] [place], [place] [phone] Shruti Garcia, FOUR SLIDE MACHINE OPERATOR [address] [place] [address] Social History Tobacco Use Types Packs/Day Years [...] Office Visit [facility] Ophthalmology - [address] [phone] Marcial Magaña MD 111 [facility], [address] [place] [phone] 07/25/2024 11:00 EDT Phlebotomy Only [facility] Hematology & Oncology [address] [phone] Blood Doctor, [facility] Hem Onc 07/25/2024 11:45 EDT Office Visit [facility] Hematology & Oncology [address] 628131 Abebe Ralph MD [address] [place] [address] 2 [place] [phone] 07/25/2024 12:30 EDT Appointment [facility] Hematology & Oncology [address] [phone] 01/03/2025 16:20 EDT Appointment [facility] Breast Imaging Mammography - [address] [phone] documented as of this encounter Procedures Procedure Name Priority Date/Time Associated Diagnosis Comments CYTOPATHOLOGY Routine 06/25/2010 0:00 EDT documented in this encounter Results * CYTOPATHOLOGY (06/25/2010 0:00 EDT) Pathology Report: CYTOPATHOLOGY REPORT ? Reports generated via electronic interface contain original data; ? however they are lacking the format of the original report. ? Caution should be taken when reading/interpreti ng unformatted reports. ? Name: ? JEFFERY IRELAND ? Accession #: ? [id number] ? : ? 1950 (Age: 59) ??F ?Collect Date: ? 06/25/2010 ? Location: ? [facility] ? Receive Date: ? 06/27/2010 ? Provider: SHRUTI CARLOTTA FOUR SLIDE MACHINE OPERATOR ? Copy to: ? Final Report ? SPECIMEN ADEQUACY ? Satisfactory for Evaluation ? - transformation zone component present ? GENERAL CATEGORIZATION ? Negative for Intraepithelial Lesion or Malignancy ? Last Menstural Period: N/A ? Specimen/Source: ??Pap Test, Cervix, ThinPrep Imaging System with manual ? evaluation ? Document reviewed and electronically signed by: ? Lynan Shaka, CT(ASCP) ? Report ??Date: 07/02/2010 10:17 ? HPV with Pap Test ? Date Ordered: ? 07/02/2010 ? Status: ?? Signed Out ?Date Complete: ? 07/04/2010 ? By: ??System Interface ? Date Reported: ? 07/04/2010 ? Interpretation ? RESULT: Negative for HPV types 16, 18, 31, 33, 35, 39, 45, 51, 52, ? 56, 58, 59, and 68. ? Comments ? Document reviewed and electronically signed by: ? System Interface ? Report date: 07/04/2010 ? By the signature above, the attending physician certifies that he/she has ? personally conducted a gross and/or microscopic examination of the described ? specimens and rendered or confirmed the above diagnosis. ? End of Report ? [facility] 06/25/2010 06/27/2010 us Shruti Garcia FOUR SLIDE MACHINE OPERATOR PATHOLOGY ORDERABLES Amee l Result [facility] [address] [place] [address] documented in this encounter Visit Diagnoses Not on filedocumented in this encounter Care Teams Maintenance Craftsman Relationship Specialty Start Date End Date Rustam Alberto MD PCP - General 09/06/08 06/25/10 Shruti Garcia FNP [address] [place] [address] PCP - General 06/26/10 11/25/10 documented as of this encounter
--- OUTSIDE RECORDS SUMMARY | 2024-04-19 08:14 | XMS_ITS | Encounter Summary ---
Author Organization [facility] Address [address] [place] [address] Care Team Providers Care Work Car Operator Name Role Phone Rustam Alberto MD Primary Care Provider Unav ailable Reason for Visit * Reason Onset Date Comments Advice Only 07/16/2016 Returning Call 07/23/[address] Rees Results 07/28/2016 Returning Call 07/28/2016 to Emma Encounter Details Date Type Department Care Team (Late st Contact Info) Description 07/16/[address] [address] Roberto Carlos Landin MD Advice Only; Returning Call (to Dr. Rees); Results; Returning Call (to [place]) Social History Tobacco Use Types Packs/Day Years [...] Telephone Encounter - Emma Correa RN - 07/28/2016 1613 EDT Blood was drawn today at [facility] and sent to [facility]. 24 hour urine testing at [facility], results not available yet. Left message for patient. * Telephone Encounter - Christiana Pandey - 07/28/2016 1005 EDT Pt has questions regarding treatment and is requesting her test results. * Telephone Encounter - Emma Correa RN - 07/23/2016 1726 EDT Lab orders faxed to [facility] for PTH, TTG, IGA, 24hr urine calcium&creatinine. * Telephone Encounter - Kim Rees MD - 07/23/2016 1447 EDT Spoke with patient, she has elevated PTH that could be due to primary or secondary hyperparathyroidism, calcium level is on lower range of normal that is suspicious for secondary hyperparathyroidism I explained to patient what is the difference between primary and secondary hyperparathyroidism andthat it is not clear what is the cause of elevated PTH and we will need to do additional testing. We will check 24 hours urine calcium and creatinine to assess if calcium absorption is adequate. I will also repeat PTH. I explained to patient how to collect urine, she would like to have testing done at [facility]. Nurses can you please fax my orders to [facility] lab. * Telephone Encounter - Emma Correa RN - 07/17/2016 0942 EDT Spoke with patient and answered her questions about repeating DXA scan in 2 years, no heavy lifting, following Forteo with another medication after 2 years. She has no further questions at this time.Forteo prior auth is pending. Blood work done at [facility] 2 days ago, results placed in Dr. Landin's box (patient said she is anxiousto know the results): PTH 109 (H) 25OH-VitD 30 (30-100) Calcium 8.8 (8.2-10.2) Albumin 4.0 (3.4-5.0) Creatinine 0.71 (0.51-0.95) Magnesium 2.2 (1.8-2.4) SPEP negative Urine immunotyping negative * Telephone Encounter - Nguyen Sanders - 07/16/2016 1423 EDT Pt called as she has questions for Dr. Landin but he is not listed on [facility] as a provider. Please call to follow up. documented in this encounter Plan of Treatment Upcoming Encounters Date Type Department Care Team (Late st Contact Info) Description 07/21/2024 11:00 EDT Office Visit [facility] Ophthalmology - [facility] [address] [place] [address] Marcial Magaña MD 111 [facility], Level [address] [place] [phone] 07/25/2024 11:00 EDT Phlebotomy Only [facility] Hematology & Oncology - [address] [phone] Blood Doctor, [facility] Hem Onc 07/25/2024 11:45 EDT Office Visit [facility] Hematology & Oncology [address] [address] Abebe Ralph MD [address] [place] [address] [address] [place] [phone] 07/25/2024 12:30 EDT Appointment [facility] Hematology & Oncology - [address] [phone] 01/03/2025 16:20 EDT Appointment [facility] Breast Imaging Mammography - [address] [phone] documented as of this encounter Visit Diagnoses Diagnosis Hyperparathyroidism ([facility])- Primary Hyperparathyroidism, unspecified Encounter for screening mammogram for malignant neoplasm of breast Other screening mammogram documented in this encounter Care Teams Work Car Operator Relationship Specialty Start Date End Date Rustam Alberto MD PCP - General 11/26/10 08/10/18 documented as of this encounter
--- OUTSIDE RECORDS SUMMARY | 2024-04-19 08:14 | XMS_ITS | Encounter Summary ---
Author Organization [facility] Address [address] [place] [address] Care Team Providers Care Custody Officer Name Role Phone Rustam Alberto MD Primary Care Provider Unav Greta Rutledge DAMPER FITTER Primary Care Provider [phone] Reason for Visit * Reason Onset Date Comments Appointment Related 06/25/2010 Patient has concerning lesion on her chest. PCP wants patient seen ZAN. Please call. Encounter Details Date Type Department Care Team (Late st Contact Info) Description 06/25/2010 Telephone [facility] Dermatology 5th Floor [address] [address] Lora Lou MD [address] [place] [address] Appointment Related (Patient has concerning lesion on her chest. PCP wants patient seen ZAN. Please call. ) Social History Tobacco Use Types Packs/Day [...] :11 EDT documented as of this encounter Miscellaneous Notes * Telephone Encounter - Mercy Nevarez RN - 06/26/2010 1505 EDT Spoke with Greta Pacheco NP. Patient has a history of basal cell carcinoma. Patient has multiple lesions on her chest she suspects maybe basal cell carcinoma on her eyelid. There is a 1 cm irregularly shaped red, raised lesion with depressed center. There are two satilite lesions that are smaller but of similar appearance. Patient scheduled 07/29/2010 MON 3:30P PEN FUR DAVI. Yoana will let the patient know about the appointment and will send the notes once they are transcribed. Mercy Nevarez RN 06/26/2010 15:23 documented in this encounter Plan of Treatment Upcoming Encounters Date Type Department Care Team (Late st Contact Info) Description 07/21/2024 11:00 EDT Office Visit [facility] Ophthalmology - [address] [phone] Marcial Magaña MD [address] [place] [address], [facility] [address] [place] [phone] 07/25/2024 11:00 EDT Phlebotomy Only [facility] Hematology & Oncology [address] [phone] Blood Doctor, [facility] Hem Onc 07/25/2024 11:45 EDT Office Visit [facility] Hematology & Oncology [address] [address] Abebe Ralph MD [address] [place] [address], Level [address] [place] [phone] 07/25/2024 12:30 EDT Appointment [facility] Hematology & Oncology [address] [phone] 01/03/2025 16:20 EDT Appointment [facility] Breast Imaging Mammography - [address] [address] documented as of this encounter Visit Diagnoses Not on filedocumented in this encounter Care Teams Custody Officer Relationship Specialty Start Date End Date Rustam Alberto MD PCP - General 09/06/08 06/25/10 Greta Garcia FNP [address] [place], [place] [address] PCP - General 06/26/10 11/25/10 documented as of this encounter
--- OUTSIDE RECORDS SUMMARY | 2024-04-19 08:14 | XMS_ITS | Encounter Summary ---
Author Organization [facility] Address [address] [place] [address] Care Team Providers Care Pig Lead Melter Helper Name Role Phone Rustam Alberto MD Primary Care Provider Unav ailable Encounter Details Date Type Department Care Team (Late st Contact Info) Description 08/27/[address] [facility] Rheumatology & Immunology - [address] [address] Kim Rees MD Social History Tobacco Use Types Packs/Day [...] Inject 0.08 mL into the skin daily. 5 Syringe 08/27/2016 09/02/2016 documented in this encounter Progress Notes * Kim Rees MD - 08/27/2016 1707 EDT Please schedule patient for injection teaching, I send prescription for teriparatide to patient's pharmacy. Thanks documented in this encounter Plan of Treatment Upcoming Encounters Date Type Department Care Team (Late st Contact Info) Description 07/21/2024 11:[address] [facility] Ophthalmology - [address] [phone] Marcial Magaña MD [address] [place] [address] [address] [place] [phone] 07/25/2024 11:00 EDT Phlebotomy Only [facility] Hematology & Oncology - [address] 896131 Blood Doctor, [facility] Hem Onc 07/25/2024 11:45 EDT Office Visit [facility] Hematology & Oncology [address] [phone] Abebe Ralph MD [address] [place] [address], [facility] 2 [place] [phone] 07/25/2024 12:30 EDT Appointment [facility] Hematology & Oncology [address] [phone] 01/03/2025 16:20 EDT Appointment [facility] Breast Imaging Mammography - [address] [phone] documented as of this encounter Visit Diagnoses Not on filedocumented in this encounter Care Teams Pig Lead Melter Helper Relationship Specialty Start Date End Date Rustam Alberto MD PCP - General 9/6/11 5/21/19 documented as of this encounter
--- OUTSIDE RECORDS SUMMARY | 2024-04-19 08:14 | XMS_ITS | Encounter Summary ---
Author Organization [facility] Address [address] [place] [address] Care Team Providers Care Blood Bank Specialist Name Role Phone Rustam Alberto MD Primary Care Provider Unav ailable Encounter Details Date Type Department Care Team (Late st Contact Info) Description 09/09/2007 Before PRISM Converted Visit (Maple) [facility] - Maple conversion [address] [place] [address] Ad Mcdonald MD [address] [phone] Social History Tobacco Use Types Packs/Day Years Used Date Smoking Tobacco: Never Assessed Comments Unknown Sex and Gender Information Value Date Recorded Sex Assigned at Female 09/10/2021 20:11 EDT Legal Sex Female 18:22 EST Gender Identity Female 02/23/2020 15:23 EST Sexual Orientation Straight 09/10/2021 20 :11 EDT documented as of this encounter Procedure Notes * Ad Mcdonald MD - 12/22/2008 0725 EDT DIVISION OF OPHTHALMOLOGY [facility] PROCEDURE REPORT SERVICE DATE: 09/09/2007 Ad Mcdonald MD CEO NA: Kindra Marin. PROCEDURE Adjacent tissue transfer, left lower lid. CPT 60213. PREPROCEDURE DIAGNOSIS 1. Left lower lid basal cell carcinoma. 2. Left lower lid defect involving the anterior lamella (skin and orbicularis), measuring approximately 8x5 mm. POSTPROCEDURE DIAGNOSIS 1. Left lower lid basal cell carcinoma. 2. Left lower lid defect involving the anterior lamella (skin and orbicularis), measuring approximately 8x5 mm. ESTIMATED BLOOD LOSS Less than 1 mL. ANESTHESIA Local. PATHOLOGY None sent. CLINICAL INDICATIONS This is a 56-year-old woman with a history of a left lower lid basal cell carcinoma, status post excision by Dr. Chris Nuno on 09/09/07 with a resulting anterior lamellar defect measuring approximately 8x5mm. DESCRIPTION OF PROCEDURE After informed consent was obtained, the patient was brought to the procedure room in stable condition and placed in a supine position. The left lower lid was infiltrated with an equal mixture of 0.5% bupivacaine, 2% Xylocaine with epinephrine, and buffered saline until adequate anesthesia was obtained. The patient was prepped and draped in the standard surgical fashion. Attention was turned to the left side, where a surgical marking pen was used to jj out two horizontal advancement flaps medial and lateral to the defect. Straight iris scissors were used to make incisions through the skin and orbicularis medial and lateral to the defect along the previously outlined markings. The flaps were undermined in the suborbicularis planeuntil there was adequate mobilityin order to cover the anterior lamellar defect. Hemostasis was obtained with electrocautery as needed. The orbicularis of the distal flap was anchored to the tarsus using buried 6-0 Vicryl sutures. The orbicularis was closed with buried 6-0 Vicryl sutures. The skin was closed with multiple interrupted 6-0 Prolene sutures. A running 6-0 chromic gut suture was used to close the skin at the lid margin. Erythromycin ointment was placed over the incision site. The patient tolerated the procedure well and left the clinic procedure room in stable condition. Signed by Ad Mcdonald MD 10/04/2007 11:51 Ad Mcdonald MD D: - Ad Mcdonald MD - GLT Job ID: [id number] Doc ID: [id number] cc: documented in this encounter Plan of Treatment Upcoming Encounters Date Type Department Care Team (Late st Contact Info) Description 07/21/2024 11:00 EDT Office Visit [facility] Ophthalmology - [address] [phone] Marcial Magaña MD [address] [place] [address], [facility] 5 [place] [phone] 07/25/2024 11:00 EDT Phlebotomy Only [facility] Hematology & Oncology - [address] [id number] Blood Doctor, [facility] Hem Onc 07/25/2024 11:45 EDT Office Visit [facility] Hematology & Oncology [address] [phone] Abebe Ralhp MD [address] [place] [address], Level 2 [place] [phone] 07/25/2024 12:30 EDT Appointment [facility] Hematology & Oncology - [address] [phone] 01/03/2025 16:20 EDT Appointment [facility] Breast Imaging Mammography - [address] [id number] documented as of this encounter Visit Diagnoses Not on filedocumented in this encounter Care Teams Blood Bank Specialist Relationship Specialty Start Date End Date Rustam Alberto MD PCP - General 09/06/08 06/25/10 documented as of this encounter
--- OUTSIDE RECORDS SUMMARY | 2024-04-19 08:14 | XMS_ITS | Encounter Summary ---
Author Organization [facility] Address [address] [place] [address] Care Team Providers Care Shuttler Car Name Role Phone Rustam Alberto MD Primary Care Provider Unav ailable Reason for Visit * Reason Onset Date Comments Medications Refill 09/25/2016 Encounter Details Date Type Department Care Team (Late st Contact Info) Description 09/25/2016 Refill [facility] Rheumatology & Immunology - [address] [phone] Emma Correa RN Medications Refill Social History Tobacco Use Types [...] into the skin daily. 7.2 mL 3 09/25/2016 08/19/2017 documented in this encounter Miscellaneous Notes * Telephone Encounter - Emma Correa RN - 09/25/2016 1308 EDT Patient said no refills [facility]. I spoke with pharmacist. They did not receive the Forteo script sent electronically 09/02/16. New script sent today. documented in this encounter Plan of Treatment Upcoming Encounters Date Type Department Care Team (Late st Contact Info) Description 07/21/2024 11:00 EDT Office Visit [facility] Ophthalmology - [address] [phone] Marcial Magaña MD [address] [place] [address], [facility] 5 [place] [phone] 07/25/2024 11:00 EDT Phlebotomy Only [facility] Hematology & Oncology [address] [phone] Blood Doctor, [facility] Hem Onc 07/25/2024 11:45 EDT Office Visit [facility] Hematology & Oncology [address] [address] Abebe Ralph MD [address] [place] [address], Level [address] [place] [phone] 07/25/2024 12:30 EDT Appointment [facility] Hematology & Oncology [address] 724201 01/03/2025 16:20 EDT Appointment [facility] Breast Imaging Mammography - [address] [phone] documented as of this encounter Visit Diagnoses Not on filedocumented in this encounter Discontinued Medications Medication Sig Discontinue Reason Start Date End Da te teriparatide 20 mcg/dose - 600 mcg/2.4 mL pen injector Inject 0.08 mL into the skin daily. Reorder 09/02/2016 09/25/2016 documented as of this encounter Care Teams Shuttler Car Relationship Specialty Start Date End Date Rustam Alberto MD PCP - General 11/26/10 08/10/18 documented as of this encounter
--- OUTSIDE RECORDS SUMMARY | 2024-04-19 08:14 | XMS_ITS | Encounter Summary ---
Author Organization [facility] Address [address] [place] [address] Care Team Providers Care Monorail Operator Name Role Phone Greta Garcia KALEY Primary Care Provider [phone] Encounter Details Date Type Department Care Team (Late st Contact Info) Description 07/26/2010 Abstract [facility] Dermatology 5th Floor [address] [phone] Lora Lou MD [address] [place] [address] Social History Tobacco Use Types [...] Health [facility] Ophthalmology - [address] [phone] Marcial Magaña MD [address] [facility], [facility] 5 [place] [address] 07/25/2024 11:00 EDT Phlebotomy Only [facility] Hematology & Oncology [address] [phone] Blood Doctor, [facility] Hem Onc 07/25/2024 11:45 EDT Office Visit [facility] Hematology & Oncology [address] 954321 Abebe Ralph MD [address] [place] [address], Level 2 [place] [phone] 07/25/2024 12:30 EDT Appointment [facility] Hematology & Oncology [address] [phone] 01/03/2025 16:20 EDT Appointment [facility] Breast Imaging Mammography [address] [phone] documented as of this encounter Visit Diagnoses Not on filedocumented in this encounter Care Teams Monorail Operator Relationship Specialty Start Date End Date Greta Garcia FNP [address] [place] [address] PCP - General 06/26/10 11/25/10 documented as of this encounter
--- OUTSIDE RECORDS SUMMARY | 2024-04-19 08:14 | XMS_ITS | Encounter Summary ---
Author Organization [facility] [place] [facility] Address [address] [place] [address] Care Team Providers Care Printing Agent Name Role Phone Rustam Alberto MD Primary Care Provider Unav ailable Reason for Visit * Reason Onset Date Comments Medication Management 08/29/2016 Forteo Encounter Details Date Type Department Care Team (Late st Contact Info) Description 08/29/[address] [address] Emma Correa, project construction assistant manager Management (Forteo) Social History Tobacco Use Types Packs/Day Years [...] Telephone Encounter - Emma Correa RN - 09/01/2016 1658 EDT Spoke with patient and informed her that a 25 lb backpack is not a problem, per Dr. Landin. More than25 lb is not advisable. Patient verbalized understanding and agrees. * Telephone Encounter - Emma Correa RN - 08/29/2016 1742 EDT Spoke with patient. She is picking up Forteo from [facility] tomorrow. Scheduled injection teaching 09/02/16 at 10:00 am. She is going backpacking on the [place] for a few days, leaving in about 1 week. I told her it'simportant for the pack to be put on and taken off with her back straight, not twisted or rounded. How heavy can her backpack be? She goes backpacking every year; last year it was 25 lbs. documented in this encounter Plan of Treatment Upcoming Encounters Date Type Department Care Team (Late st Contact Info) Description 07/21/2024 11:00 EDT Office Visit [facility] Ophthalmology - [address] [phone] Marcial Magaña MD [address] [place] [address] 5 [place] [phone] 07/25/2024 11:00 EDT Phlebotomy Only [facility] Hematology & Oncology [address] [phone] Blood Doctor, [facility] Hem Onc 07/25/2024 11:45 EDT Office Visit [facility] Hematology & Oncology [address] [phone] Abebe Ralph MD [address] [place] [address], Level 2 [place] [phone] 07/25/2024 12:30 EDT Appointment [facility] Hematology & Oncology - [address] [phone] 01/03/2025 16:20 EDT Appointment [facility] Breast Imaging Mammography - [address] [phone] documented as of this encounter Visit Diagnoses Not on filedocumented in this encounter Care Teams Printing Agent Relationship Specialty Start Date End Date Rustam Alberto MD PCP - General 11/26/10 08/10/18 documented as of this encounter
--- OUTSIDE RECORDS SUMMARY | 2024-04-19 08:14 | XMS_ITS | Encounter Summary ---
Author Organization [facility] Address [address] [place] [address] Care Team Providers Care Director Medical Safety Name Role Phone Rustam Alberto MD Primary Care Provider Unav ailable Reason for Visit * Reason Comments Osteoporosis Encounter Details Date Type Department Care Team (Latest Contact Info) Description 01/07/2018 9:00 EDT Office Visit [facility] Osteoporosis - [facility] [address] [place], [place] [phone] [place] [address] [place] [address] [place] [address] Jorgito Garza MD Osteoporosis, unspecified osteoporosis type, [...] documented in this encounter Discharge Diagnoses Diagnosis M81.0 Age-related osteoporosis without current pathological fracture-M81.0[ICD-10-CM] documented in this encounter Progress Notes * Dee Dee Acosta - 01/07/2018 0900 EDT This was a Tentative scheduled BD which Dr. Landin ended up not wanting. Did not scan PT. documented in this encounter Plan of Treatment Upcoming Encounters Date Type Department Care Team (Late st Contact Info) Description 07/21/2024 11:00 EDT Office Visit [facility] Ophthalmology - [address] [phone] Marcial Magaña MD [address] [place] [address] 5 [place] [phone] 07/25/2024 11:00 EDT Phlebotomy Only [facility] Hematology & Oncology [address] [phone] Blood Doctor, [facility] Hem Onc 07/25/2024 11:45 EDT Office Visit [facility] Hematology & Oncology [address] [phone] Abebe Ralph MD [address] [place] [address], Level [address] [place] [phone] 07/25/2024 12:30 EDT Appointment [facility] Hematology & Oncology [address] [phone] 01/03/2025 16:20 EDT Appointment [facility] Breast Imaging Mammography - [address] [address] documented as of this encounter Visit Diagnoses Diagnosis Osteoporosis, unspecified osteoporosis type, unspecified pathological fracture presence- Primary Encounter for screening mammogram for malignant neoplasm of breast Other screening mammogram documented in this encounter Care Teams Director Medical Safety Relationship Specialty Start Date End Date Rustam Alberto MD PCP - General 11/26/10 08/10/18 documented as of this encounter
--- OUTSIDE RECORDS SUMMARY | 2024-04-19 08:14 | XMS_ITS | Encounter Summary ---
Author Organization [facility] Address [address] [place] [address] Care Team Providers Care Banking Center Manager Name Role Phone Unavailable Primary Care Provider Unavailabl e Encounter Details Date Type Department Care Team (Late st Contact Info) Description 10/15/2007 8:20 EDT Hospital Encounter [facility] [address] [place] [address] Ad Mcdonald MD [address] [phone] Social History Tobacco Use Types Packs/Day Years [...] Office Visit [facility] Ophthalmology - [address] [phone] Marcial Magaña MD [address] [place] [address] 5 [place] [phone] 07/25/2024 11:00 EDT Phlebotomy Only [facility] Hematology & Oncology [address] [phone] Blood Doctor, [facility] Hem Onc 07/25/2024 11:45 EDT Office Visit [facility] Hematology & Oncology [address] [phone] Abebe Ralph MD [address] [place] [address], [facility] 2 [place] [phone] 07/25/2024 12:30 EDT Appointment [facility] Hematology & Oncology - [address] [phone] 01/03/2025 16:20 EDT Appointment [facility] Breast Imaging Mammography - [address] [phone] documented as of this encounter Visit Diagnoses Not on filedocumented in this encounter
--- OUTSIDE RECORDS SUMMARY | 2024-04-19 08:14 | XMS_ITS | Encounter Summary ---
Author Organization [facility] Address [address] [place] [address] Care Team Providers Care Production Maintenance Mechanic Name Role Phone Rustam Alberto MD Primary Care Provider Unav ailable Reason for Visit * Reason Comments Skin Exam h/o bcc left lower e yelid Encounter Details Date Type Department Care Team (Late st Contact Info) Description 12/06/2012 13:45 EDT Office Visit [facility] Dermatology 3rd Floor [address] [phone] Unknown, Provider, MD Tam Md Other seborrheic keratosis (Primary Dx); History of basal cell carcinoma; Nevus Discharge Disposition: Auto Discharge Social History Tobacco [...] * Patient Instructions* Cesar Garcia MD - 12/06/2012 14:20 EDT Recommendations for Sun Protection Ultraviolet (UV) [...] during these hours. Limit outdoor activities to hand former and/or evening hours when the sunlight is [...] provide. In general, loose weaves (Cotton) and clinical unit educator-colored fabrics offer less protection than tighter weaves [...] sensitive Recommended sun protection clothing websites www.sunprecautions.com www.coolibar.People Capital www.SkyKick.People Capital www.[employer] documented in this encounter Discharge Disposition Disposition Code Departure Means Destination Auto Discharge documented in this encounter Progress Notes * Cesar Garcia MD - 12/06/2012 1410 EDT Dermatology Outpatient Clinic Note 12/06/2012 Chief Complaint: Skin check Skin cancer history: 1. basal cell carcinoma - 2008 - left lower eyelid - s/p mohs excision History of Present Illness: Patient is a 62 year old female who presents for a follow up skin check. Last seen 11/25/2011. Has noticed any specific areas on concern. Has been using regular sun protection. No family personal or family history of melanoma. See documentation in PRISM for medical, surgical, [...] normal with addition to the following comments: - Left lower eyelid had a well healed Moh's surgical scar without any evidence of nodularity or recurrence - On the right anterior ordoñez an irregular shaped ~1.5cm brown black stuck on appearing plaque with pseudohorn cysts on dermoscopy - On the back and chest she had two well circumscribed evenly pigmented light brown dome shaped papules IMPRESSION: 1. Seborrheic keratosis 2. Benign nevi on the back and chest 3. History of basal cell carcinoma PLAN: 1. Patient was reassured about the benign nature of the exam today 2. The nature of sun-induced photo-aging and skin cancers is discussed. Sun avoidance, protective clothing, and the use of 30-SPF sunscreens is advised. Observe closely for skin damage/changes, and call if such occurs. ABCDE of melanoma were reviewed. Follow-up in 1 year Cesar Garcia MD 12/06/2012 14:11 Attestation Statement: I saw and examined the patient with the resident/fellow. I agree with the findings and plan of care documented in the resident's/fellow's note. Cameron Garner MD * Zhanna Orozco - 12/06/2012 6178 EDT Review of Systems Constitutional: Negative for [...] sleep disturbance. The patient is not nervous/anxious. Zhanna Garcia MD documented in this encounter Plan of Treatment Upcoming Encounters Date Type Department Care Team (Late st Contact Info) Description 07/21/2024 11:00 EDT Office Visit [facility] Ophthalmology - [address] [phone] Marcial Magaña MD [address] [place] [address] 5 [place] [phone] 07/25/2024 11:00 EDT Phlebotomy Only [facility] Hematology & Oncology [address] [phone] Blood Doctor, [facility] Hem Onc 07/25/2024 11:45 EDT Office Visit [facility] Hematology & Oncology [address] [phone] Abebe Ralph MD [address] [place] [address], [facility] 2 [place] [phone] 07/25/2024 12:30 EDT Appointment [facility] Hematology & Oncology - [address] [phone] 01/03/2025 16:20 EDT Appointment [facility] Breast Imaging Mammography - [address] [phone] documented as of this encounter Visit Diagnoses Diagnosis Other seborrheic keratosis- Primary History of basal cell carcinoma Personal history of other malignant neoplasm of skin Nevus Benign neoplasm of skin, site unspecified Encounter for screening mammogram for malignant neoplasm of breast Other screening mammogram documented in this encounter Care Teams Production Maintenance Mechanic Relationship Specialty Start Date End Date Rustam Alberto MD PCP - General 11/26/10 08/10/18 documented as of this encounter
--- OUTSIDE RECORDS SUMMARY | 2024-04-19 08:14 | XMS_ITS | Encounter Summary ---
Author Organization [facility] Address [address] [place] [address] Care Team Providers Care Electromechanic Name Role Phone Rustam Alberto MD Primary Care Provider Unav ailable Reason for Visit * Reason Onset Date Comments Medication Management 06/11/2017 Encounter Details Date Type Department Care Team (Late st Contact Info) Description 06/11/[address] [phone] Emma Correa, tin assorter Management Social History Tobacco Use Types Packs/Day [...] Miscellaneous Notes * Telephone Encounter - Emma Correa, RN - 06/11/2017 1128 EDT Spoke with patient. She is going on a trek in [place] for 10 days in June, walking 8-19 miles/day.She is a bit worried about carrying the Forteo pen with her. She has previously travelled with her Forteo on airline trips, but is not sure this time she can maintain proper temperature and handling.She has decided not to bring Forteo with her. She has constant feeling of pain and fatigue in her legs but has continued taking the daily Forteo injections. documented in this encounter Plan of Treatment Upcoming Encounters Date Type Department Care Team (Late st Contact Info) Description 07/21/2024 11:00 EDT Office Visit [facility] Ophthalmology - [address] [phone] Marcial Magaña MD [address] [place] [address] 5 [place] [phone] 07/25/2024 11:00 EDT Phlebotomy Only [facility] Hematology & Oncology [address] [phone] Blood Doctor, [facility] Hem Onc 07/25/2024 11:45 EDT Office Visit [facility] Hematology & Oncology [address] [phone] Abebe Ralph MD [address] [place] [address], Level [address] [place] [phone] 07/25/2024 12:30 EDT Appointment [facility] Hematology & Oncology [address] [phone] 01/03/2025 16:20 EDT Appointment [facility] Breast Imaging Mammography - [address] [address] documented as of this encounter Visit Diagnoses Not on filedocumented in this encounter Care Teams Electromechanic Relationship Specialty Start Date End Date Rustam Alberto MD PCP - General 11/26/10 08/10/18 documented as of this encounter
--- OUTSIDE RECORDS SUMMARY | 2024-04-19 08:14 | XMS_ITS | Encounter Summary ---
Author Organization [facility] Address [address] [place] [address] Care Team Providers Care Management Development Specialist Name Role Phone Rustam Alberto MD Primary Care Provider Unav ailable Reason for Referral * Medication Prior Authorization (Routine) - Closed Specialty Diagnoses / Procedures [facility]erred To Contact Diagnoses Other osteoporosis Roberto Carlos Landin MD Referral ID Status Reason Start Date Expiration Date Visits Requested Visits Authorized [id number] Closed Medication Prior Authorization 07/11/2016 1 1 Question Answer Medication to be Prior Authorized: teriparatide Comments The purpose of this consult request is to inform the scheduling staff that a medication needs to be prior-authorized before it is prescribed and/or administered. Reason for Visit * Reason Comments New Patient Visit osteoporosis, DXA sc an at [facility] 04/15/16 Encounter Details Date Type Department Care Team (Latest Contact Info) Description 07/11/2016 15:15 EDT Office Visit [facility] Osteoporosis - Main [place] [address], [place] [address] Roberto Carlos Landin MD Bone, Rheum Fellow, DO Other osteoporosis (Primary Dx); Screening for deficiency anemia Discharge Disposition: Auto Discharge Social History Tobacco [...] Sign Reading Time Taken Comments Blood Pressure 156/70 07/11/2016 1500 EDT Pulse 60 07/11/2016 1500 EDT Temperature - - Respiratory Rate - - Oxygen Saturation - - Inhaled Oxygen Concentration - - Weight 73.9 kg (163 lb) 07/11/2016 1500 EDT Height 163.5 cm (5' 4.37) 07/11/2016 1500 EDT Body Mass Index 27.66 07/11/2016 1500 EDT documented in this encounter Functional Status [...] M81.8 Other osteoporosis without current pathological fracture-M81.8[ICD-10-CM] Z13.0 Encounter for screening for diseases of the blood and blood-forming organs and certain disorders involving the immune mechanism-Z13.0[ICD-10-CM] documented in this encounter Patient Instructions * Patient Instructions* Kim Rees MD - 07/11/2016 15:15 EDT Stop Fosamax Call our office in 3 weeks for updates documented in this encounter Discharge Disposition Disposition Code Departure Means Destination Auto Discharge documented in this encounter Progress Notes * Kim Rees MD - 07/11/2016 1515 EDT Osteoporosis Center Low Bone Density Jeffery Garvey is being seen today in the [facility] in consultation at the requestof Donovan Kent MD for evaluation of low bone density . Patient considered herself healthy, she is exercising regularly, cross-country skiing in winter time, enjoys gardening in summer, does a lot of walking and goes for yoga classes. She has no history of fractures, denies family history of osteoporosis. Patient has been taking calcium and vitamin D supplements for years. She was found to have extremely low bone density in March this year, started to take Fosamax beginning of April. Patient reports intermittent bone/joint pain and diarrhea with Fosamax. The most recent, and if available, past bone density study are as follows. Date Spine L1-4 BMD Spine L1-4 T-score Total Hip mean BMD Total Hip Mean T-Score Femoral Neck Mean BMD Femoral Neck Mean T-Score 04/15/16 0.606 -4.0 0.684 -2.1 0.528 -2.9 The following risk factors were identified: YES OR NO Previous fracture after age 40 No Previous fracture as child or young adult No Low body mass index No Low consumption of calcium over lifetime No Lack of regular exercise No Family history of osteoporosis No One or both parents with hip fracture No Current smoking No Past smoking No Hyperthyroidism No Thyroid cancer on replacement No Hyperparathyroidism No Kidney insufficiency No Rheumatoid arthritis No Partial or complete paralysis No Previous gastric resection No Bariatric surgery or procedure No Eating disorder/anorexia nervosa No Alcohol excess No Diabetes No Organ transplant No Exercise: daily Use of the following medications. If so when? YES OR NO Dates Glucocorticoids No Anti-seizure medication No GNRH agonists No TZDs No Aromatase inhibitors No Depo medroxyprogesterone No Androgen deprivation therapy No Chemotherapy No Anti-rejection therapy No High dose thyroid replacement No Menopausal History Age of menopause: 48 Age of menarche: 11 Hormone therapy. No Use of Therapeutic Agents: YES OR NO Type When Dose Side Effects Bisphosphonate Yes Fosamax April 25 2016 70 mg weekly Diarrhea, joint pain SERM - raloxifene No Calcitonin No Testosterone No Teriparatide No Denosumab No Use of Calcium and Vitamin D: YES OR NO Dose Frequency How Long Calcium Carbonate Yes 500 mg daily years Calcium Citrate No Other Calcium? No Vitamin D Yes 2000 units daily Years Lack of sun exposure? Yes Any falls in last year? Yes If yes, how many 2 Able to get up from a chair without using hands? Yes Recent height loss? No Current Outpatient Prescriptions: ??? ASCORBATE CALCIUM (VITAMIN C ORAL), Take by mouth as needed. with vit A, zinc, pantothenic acid, Disp: , Rfl: ??? Calcium Carbonate (TUMS ULTRA) 400 mg calcium (1,000 mg) tablet,chewable, Take by mouth as needed. Not every day, Disp: , Rfl: ??? cholecalciferol, Vitamin D3, 1,000 unit tablet, Take 1,000 Units by mouth daily., Disp: , Rfl: ??? Lutein 10 mg tablet, Take by mouth daily. [employer], Disp: , Rfl: ??? Multivitamins with Minerals tablet tablet, Take 1 Tab by mouth daily. (contains calcium 25 mg, vitamin D 1000 iu), Disp: , Rfl: ??? OMEGA-3S/DHA/EPA/FISH OIL (OMEGA 3 ORAL), Take 1,480 mg by mouth daily. (contains vitamin D 1000 iu), Disp: , Rfl: Allergies include: Cats and Melatonin Past Medical History: Diagnosis Date ??? Basal cell carcinoma 07/09/2007 Left lower eyelid Past Surgical History: Procedure Laterality Date ??? MOHS SURGERY 09/09/2007 Left lower eyelid BCC family history includes Arthritis in her mother; Cancer in her father, mother, and sister; Hypertension in her mother. Patient reports that she has never smoked. She has never used smokeless tobacco. She reports that she drinks about 4.2 - 8.4 oz of alcohol per week She reports that she does not use illicit drugs. Marital Status: Caffeine: coffee 2 /day Occupation: retired REVIEW OF SYSTEMS General: negative HEENT: negative Neck: No lumps or masses Cardiorespiratory: Denies any chest pain and peripheral vascular disease. Gastrointestinal: positive for change in bowel habits Genitourinary: negative Neuro: negative Psych: negative Musculoskeletal: intermittent joint pain Endocrine: negative PHYSICAL EXAM Constitutional: healthy, alert and not in acute distress BP (!) 156/70 Pulse 60 Ht 163.5 cm (64.37) Wt 73.9 kg (163 lb) BMI 27.66 kg/m2 EYES: conjunctivae clear. PERRL, EOM's intact. ENT: neck without nodes NECK: normal and supple MUSCULOSKELETAL: Has good range of motion in spine, ribs are 3 finger breadths above the iliac crest. Head to wall distance is 0. No kyphosis She is able to stand up and balance on toes and heels. Normal gait. Able to get up from chair without using hands. Able to do 1/2 squat LYMPHATIC: No palpable lymph nodes RESPIRATORY: resp, even and unlabored CARDIOVASCULAR: negative findings: regular rate and rhythm, S1 normal, S2 normal GI: Examination of ulcer/spleen: No hepatomegaly, no splenomegaly SKIN: no rashes, no ecchymoses, no petechiae NEUROLOGIC: negative findings: speech normal, mental status intact, muscle tone normal PSYCHIATRIC: appropriate ASSESSMENT: Patient is a 65 years old female without significant risk factors for osteoporosis who was found to have extremely low bone density on recent DXA scan. I will order additional testing to rule out secondary causes of osteoporosis such as hyperparathyroidism, vitamin D deficiency, malignancy in particular multiple myeloma. Patient will need 24-hour urine calcium collection in case of elevated PTH. In regards to treatment, we will need to stop oral biphosphonate since patient is not able to tolerate medication. Treatment with teriparatide is appropriate for this patient with severe osteoporosiswith T score less than -3.5 even in the absence of fragility fracture. I will place an order for prior authorization. We will plan to treat for 2 years with teriparatide if medication approved, this will need to be followed by an antiresorptive therapy to preserve the gain in BMD. Denosumab can be used in case if teriparatide is not approved. Patient was educated about lifestyle modification, avoid lifting greater then 5 pounds and bending to prevent vertebral fractures and to avoid exercises with high risk of fall. PLAN: 1. Complete testing for secondary causes of osteoporosis : Vit D level, CMP, PTH, Mg, P, SPEP, UPEP 2. Obtain prior - authorization for teriparatide 3. Stop Fosamax 4. Repeat DXA scan in 2 years 5. Will need follow up appointment in 6 months in case of treatment with teriparatide ( 1 year follow up if treated with Denosumab) I spent a total of 60 minutes in face to face time with this patient and 30 minutes of that time was spent in counseling and coordination of care as described in the progress note. Kim Rees Fellow Rheumatology, PGY4 Attestation statement: I saw and examined the patient with the resident/fellow. I agree with the findings and plan of care documented in the resident's/fellow's note. Roberto Carlos Landin MD 07/15/2016 11:03 documented in this encounter Plan of Treatment Upcoming Encounters Date Type Department Care Team (Late st Contact Info) Description 07/21/2024 11:00 EDT Office Visit [facility] Ophthalmology - [address] [id number] Marcial Magaña MD [address] [place] [address], [facility] [address] [place] [phone] 07/25/2024 11:00 EDT Phlebotomy Only [facility] Hematology & Oncology - [address] [phone] Blood Doctor, [facility] Hem Onc 07/25/2024 11:45 EDT Office Visit [facility] Hematology & Oncology [address] [address]31 Abebe Ralph MD [address] [place] [address], [facility] [address] [place] [phone] 07/25/2024 12:30 EDT Appointment [facility] Hematology & Oncology [address] [phone] 01/03/2025 16:20 EDT Appointment [facility] Breast Imaging Mammography - [address] [phone] Scheduled Referrals Name Type Priority Associated Diagnoses Orde r Schedule AMB MEDICATION PRIOR AUTHORIZATION Outpatient Referral Routine Other osteoporosis Ordered: 07/11/2016 documented as of this encounter Visit Diagnoses Diagnosis Other osteoporosis- Primary Screening for deficiency anemia Screening for other and unspecified deficiency anemia Encounter for screening mammogram for malignant neoplasm of breast Other screening mammogram documented in this encounter Discontinued Medications Medication Sig Discontinue Reason Start Date End Da te acetaminophen (TYLENOL) 325 mg tablet Take 325 mg by mouth every 4 hours as needed. Patient Stopped Taking 12/06/2009 07/11/2016 UNABLE TO FIND daily. Med Name: patient reports taking [employer] for her eyes Duplicate Therapy 07/11/2016 documented as of this encounter Historical Medications * This list may reflect changes made after this encounter. Multivitamins with Minerals tablet tablet Take 1 Tablet by mouth daily. (contains calcium 25 mg, vitamin D 1000 iu) Lutein 10 mg tablet Take by mouth daily. [facility] 0 ASCORBATE CALCIUM (VITAMIN C ORAL) Take by mouth as needed. with vit A, zinc, pantothenic acid 8 OMEGA-3S/DHA/EPA /FISH OIL (OMEGA 3 ORAL) Take 1,480 mg by mouth daily. (contains vitamin D 1000 iu) 1 cholecalciferol, Vitamin D3, 1,000 unit tablet Take 1,000 Units by mouth daily. 9 Calcium Carbonate (TUMS ULTRA) 400 mg calcium (1,000 mg) tablet,chewable Take by mouth as needed. Not regularly 1 added in this encounter Care Teams Management Development Specialist Relationship Specialty Start Date End Date Rustam Alberto MD PCP - General 11/26/10 08/10/18 documented as of this encounter
--- OUTSIDE RECORDS SUMMARY | 2024-04-19 08:14 | XMS_ITS | Encounter Summary ---
Author Organization [facility] Address [address] [place] [address] Care Team Providers Care Floater Operator Name Role Phone Rustam Alberto MD Primary Care Provider Unav ailable Encounter Details Date Type Department Care Team (Late st Contact Info) Description 07/13/2018 Orders Only [address] [address] Emma Correa RN Social History Tobacco Use Types Packs/Day [...] Inject 0.08 mL into the skin daily. 2.4 mL 1 07/13/2018 09/09/2018 documented in this encounter Plan of Treatment Upcoming Encounters Date Type Department Care Team (Late st Contact Info) Description 07/21/2024 11:00 EDT Office Visit [facility] Ophthalmology [address] [phone] Marcial Magaña MD [address] [place] [address], [address] [place] [phone] 07/25/2024 11:00 EDT Phlebotomy Only [facility] Hematology & Oncology [address] [phone] Blood Doctor, [facility] Hem Onc 07/25/2024 11:45 EDT Office Visit [facility] Hematology & Oncology [address] [phone] Abebe Ralph MD [address] [place] [address], [address] [place] [phone] 07/25/2024 12:30 EDT Appointment [facility] Hematology & Oncology [address] [id number] 01/03/2025 16:20 EDT Appointment [facility] Breast Imaging Mammography - [address] [phone] documented as of this encounter Visit Diagnoses Not on filedocumented in this encounter Discontinued Medications Medication Sig Discontinue Reason Start Date End Da te teriparatide 20 mcg/dose - 600 mcg/2.4 mL pen injector Inject 0.08 mL into the skin daily. Reorder 08/19/2017 07/13/2018 documented as of this encounter Care Teams Floater Operator Relationship Specialty Start Date End Date Rustam Alberto MD PCP - General 11/26/10 08/10/18 documented as of this encounter
--- OUTSIDE RECORDS SUMMARY | 2024-04-19 08:14 | XMS_ITS | Encounter Summary ---
Author Organization [facility] Address [address] [place] [address] Care Team Providers Care Scale Mechanic Name Role Phone Rustam Alberto MD Primary Care Provider Unav ailable Reason for Visit * Reason Comments Osteoporosis Encounter Details Date Type Department Care Team (Latest Contact Info) Description 01/07/2018 8:15 EDT Office Visit [facility] Osteoporosis - [address] [phone] Roberto Carlos Landin MD Other osteoporosis without [...] Sign Reading Time Taken Comments Blood Pressure 114/78 01/07/2018 0836 EDT Pulse 60 01/07/2018 0836 EDT Temperature - - Respiratory Rate - - Oxygen Saturation - - Inhaled Oxygen Concentration - - Weight 71.7 kg (158 lb) 01/07/2018 0836 EDT Height 164.3 cm (5' 4.7) 01/07/2018 0836 EDT Body Mass Index 26.54 01/07/2018 0836 EDT documented in this encounter Functional Status [...] Notes * Roberto Carlos Landin MD - 01/07/2018 0815 EDT [facility] PROGRESS/FOLLOW UP NOTE PROBLEM: Osteoporosis. SUBJECTIVE: Ms. Garvey is a 67 y.o. year old female here for follow up of osteoporosis and treatment with teriparatide. She presented initially to [facility] in June due to a previous bone density done in March,. Due to the patient???s concern regarding the accuracy of the initial testing, the DXA was repeated here at [facility] in August. The initial DXA was performed on a Hologic device at [facility] and only measured the left hip. The repeat was done on Expensify iDXA and measured both hips. Therefore a [...] of teriparatide which was initially started on 09/02/16. She developed some arthralgias, was not sure if related to medication. She was advised to hold but she did not but was seen in March and was advised at that time to continue therapy and return as this time which is half way until she will need to go off teriparatide and start an anti-resorptive in September,. Having leg pain when at rest. Has been very active and then does not notice the pain. Occurs at night and day. Has not noted benefit from acetaminophen. Feels physically tired because of the pain. Nonausea. No falls or fractures. No new health problems. Not taking calcium supplement and gets 1-2 dairy servings daily. Tries to get more calcium in other food. Taking vitamin D and MV. . MEDICATIONS: Current Outpatient Prescriptions: acetaminophen (TYLENOL) 325 mg tablet cholecalciferol, Vitamin D3, 1,000 unit tablet Lutein 10 mg tablet Multivitamins with Minerals tablet tablet OMEGA-3S/DHA/EPA/FISH OIL (OMEGA 3 ORAL) teriparatide 20 mcg/dose - 600 mcg/2.4 mL pen injector UNABLE TO FIND No current facility-administered medications for this visit. REVIEW OF SYSTEMS: Yes/No Yes/No Any broken bones in the past year no Kidney Insufficiency no Height Loss no Kidney Stones no Amount: Numbness/Tingling no Weight Change no Muscle Weakness no Gain or Loss? Amount: Diabetes no Lack of Regular Exercise no Overactive or Underactive Thyroid (hyper/hypothyroidism) no Dental problems or expected dental work no Overactive Parathyroid (high calcium in blood) no Muscle or Bone Pain yes Use of Steroid Medications no Joint Pain no Hormonal or Estrogen Therapy no Thigh Pain no Any falls during the past year no Chest Pain no Do you avoid sun exposure yes Palpitations no Vitamin D Supplements yes Shortness of Breath no Amount: 2000iu Difficulty Swallowing no Calcium Supplements no Nausea/Vomiting no Amount: Frequent Heartburn no Number of dairy servings per day 1-2 Stomach Pains/Cramps no OBJECTIVE: BP 114/78 Pulse 60 Ht 164.3 cm (64.7) Wt 71.7 kg (158 lb) BMI 26.54 kg/m2 Constitutional: Healthy, alert and not in acute distress. HEENT: No eye redness or irritation. No conjunctival discoloration. No mouth lesions. Acceptable dentition. NECK: No palpable thyroid. MUSCULOSKELETAL: Good ROM of spine in 4 directions. Ribs are 3 finger breadths above the iliac crest. Head to wall distance is 0 cm. No kyphosis. NEUROMUSCULAR: Able to stand and balance on toes and heels. Normal gait. Able to get up from chair without using hands. Able to do a full squat. DIAGNOSTIC DATA: No results found for: RDWCV, [...] ANATITER, ANCATITER Imaging (excluding DXA): None ASSESSMENT: Jeffery is a 67-year-old very active woman who has been on teriparatide for 15 months for low bone density and intolerance to alendronate which caused significant diarrhea. She will be completing her course of teriparatide in 9 months. Unfortunately she [facility] and is anxious to complete the course but is willing to stick it out at this time. She has not had any falls or fractures. She is taking vitamin D and get some calcium in herdiet. PLAN: 1. Patient and I discussed the benefits of her continuing the teriparatide for at least 18 months but hopefully out to the full 24 months. 2. We discussed the options for antiresorptive therapy following the course of teriparatide. 3. I suggested she reduce her vitamin D intake. She is probably getting 5000 units/day now which isnot necessary and I asked her to reduce the vitamin D that she takes separately to just twice per week. I encouraged her to get as much calcium in her diet as she is able. 4. Follow-up in August,, to measure her bone density and determine an antiresorptive program. Roberto Carlos Landin MD 01/07/2018 9:00 documented in this encounter Plan of Treatment Upcoming Encounters Date Type Department Care Team ([facility] Contact Info) Description 07/21/2024 11:00 EDT Office Visit [facility] Ophthalmology - [address] [phone] Marcial Magaña MD [address] [place] [address], [facility] [address] [place] [phone] 07/25/2024 11:00 EDT Phlebotomy Only [facility] Hematology & Oncology - [address] [phone] Blood Doctor, [facility] Hem Onc 07/25/2024 11:45 EDT Office Visit [facility] Hematology & Oncology [address] [phone] Abebe Ralph MD [address] [place] [address], [facility] [address] [place] [phone] 07/25/2024 12:30 EDT Appointment [facility] Hematology & Oncology [address] [phone] 01/03/2025 16:20 EDT Appointment [facility] Breast Imaging Mammography - [address] [phone] documented as of this encounter Visit Diagnoses Diagnosis Other osteoporosis without current pathological fracture- Primary Encounter for screening mammogram for malignant neoplasm of breast Other screening mammogram documented in this encounter Care Teams Scale Mechanic Relationship Specialty Start Date End Date Rustam Alberto MD PCP - General 11/26/10 08/10/18 documented as of this encounter
--- OUTSIDE RECORDS SUMMARY | 2024-04-19 08:14 | XMS_ITS | Encounter Summary ---
Author Organization [facility] Address [address] [place] [address] Care Team Providers Care Aircraft Power Plant Assembler Name Role Phone Rustam Alberto MD Primary Care Provider Unav ailable Reason for Visit * Reason Onset Date Comments Medication Problem 10/20/2016 Encounter Details Date Type Department Care Team (Late st Contact Info) Description 10/20/[address] [address] Emma Correa RN Medication Problem Social History Tobacco Use Types Packs/Day [...] Telephone Encounter - Kim Rees MD - 11/04/2016 1104 EDT Can continue with treatment as long as her symptoms are not getting worse * Telephone Encounter - Emma Correa RN - 10/29/2016 0934 EDT Received message from patient 10/27/16 stating she is going to continue taking Forteo, did not stop. She is certain the leg symptoms are a side effect of the Forteo but does not want to stop. * Telephone Encounter - Emma Correa RN - 10/20/2016 1815 EDT Spoke with patient. She wants to finish the Forteo pen she has already started; she has a week left, then will stop for a couple of weeks, and call us with an update. She will not get a refill from pharmacy until she knows if she will be continuing. She hopes to be able to continue. * Telephone Encounter - Kim Rees MD - 10/20/2016 1527 EDT Should stop injection for couple weeks to see if symptoms related to medication, Forteo can cause arthralgia and muscle cramps * Telephone Encounter - Emma Correa RN - 10/20/2016 1429 EDT Received message from patient. C/o constant fatigue in her legs, onset about 3 weeks ago. Also, brief sharp intermittent pains in her legs, onset about 1-2 weeks ago. It is tolerable, but she never experienced these symptoms before. She called [facility] and they said to call doctor prescribing Forteo. She has been taking daily Forteo injections for 6 weeks. Labs at [facility] 10/06/16 were normal. documented in this encounter Plan of Treatment Upcoming Encounters Date Type Department Care Team (Late st Contact Info) Description 07/21/2024 11:00 EDT Office Visit [facility] Ophthalmology - [address] [phone] Marcial Magaña MD [address] [place] [address] [address] [place] [phone] 07/25/2024 11:00 EDT Phlebotomy Only [facility] Hematology & Oncology [address] [phone] Blood Doctor, [facility] Hem Onc 07/25/2024 11:45 EDT Office Visit [facility] Hematology & Oncology [address] [phone] Abebe Ralph MD [address] [place] [address], [address] [place] [phone] 07/25/2024 12:30 EDT Appointment [facility] Hematology & Oncology [address] [phone] 01/03/2025 16:20 EDT Appointment [facility] Breast Imaging Mammography - [address] [phone] documented as of this encounter Visit Diagnoses Not on filedocumented in this encounter Care Teams Aircraft Power Plant Assembler Relationship Specialty Start Date End Date Rustam Alberto MD PCP - General 11/26/10 08/10/18 documented as of this encounter
--- OUTSIDE RECORDS SUMMARY | 2024-04-19 08:14 | XMS_ITS | Encounter Summary ---
Author Organization [facility] Address [address] [place] [address] Care Team Providers Care Solid Waste Manager Name Role Phone Skye Hernandez Primary Care Provider [phone] Reason for Visit * Reason Onset Date Comments Medication Management 08/25/2018 Encounter Details Date Type Department Care Team (Late st Contact Info) Description 08/25/2018 Telephone [facility] Rheumatology & Immunology - [facility] [address] [place] [address] Emma Correa, valance cutter Management Social History Tobacco Use Types Packs/Day [...] Telephone Encounter - Emma Correa RN - 08/25/2018 1043 EDT Running out of Forteo, last dose will be 08/31/18. F/u visit 09/09/18. (Breast biopsy 09/01/18) documented in this encounter Plan of Treatment Upcoming Encounters Date Type Department Care Team (Late st Contact Info) Description 07/21/2024 11:00 EDT Office Visit [facility] Ophthalmology - [address] [phone] Marcial Magaña MD [address] [place] [address] 5 [place] [phone] 07/25/2024 11:00 EDT Phlebotomy Only [facility] Hematology & Oncology [address] [address] Blood Doctor, [facility] Hem Onc 07/25/2024 11:45 EDT Office Visit [facility] Hematology & Oncology [address] [phone] Abebe Ralph MD [address] [place] [address], [facility] [address] [place] [phone] 07/25/2024 12:30 EDT Appointment [facility] Hematology & Oncology [address] [phone] 01/03/2025 16:20 EDT Appointment [facility] Breast Imaging Mammography - [address] [phone] documented as of this encounter Visit Diagnoses Not on filedocumented in this encounter Care Teams Solid Waste Manager Relationship Specialty Start Date End Date Skye Hernandez [address] [place] [place] [id number] PCP - General 08/11/18 01/02/22 documented as of this encounter
--- OUTSIDE RECORDS SUMMARY | 2024-04-19 08:14 | XMS_ITS | Encounter Summary ---
Author Organization [facility] Address [address] [place] [address] Care Team Providers Care Bearingizer Name Role Phone Rustam Alberto MD Primary Care Provider Unav ailable Encounter Details Date Type Department Care Team (Late st Contact Info) Description 12/12/2009 Abstract [facility] Dermatology 5th Floor [address] 465861 Lora Lou MD [address] [place] [address] Social History Tobacco Use Types [...] [facility] Ophthalmology - [address] 136121 Marcial Magaña MD 111 [facility], [facility] 5 [place] [phone] 07/25/2024 11:00 EDT Phlebotomy Only [facility] Hematology & Oncology [address] [phone] Blood Doctor, [facility] Hem Onc 07/25/2024 11:45 EDT Office Visit [facility] Hematology & Oncology [address] [phone] Abebe Ralph MD [address] [place] [address] Level [address] [place] [phone] 07/25/2024 12:30 EDT Appointment [facility] Hematology & Oncology [address] [phone] 01/03/2025 16:20 EDT Appointment [facility] Breast Imaging Mammography - [address] [phone] documented as of this encounter Visit Diagnoses Not on filedocumented in this encounter Care Teams Bearingizer Relationship Specialty Start Date End Date Rustam Alberto MD PCP - General 09/06/08 06/25/10 documented as of this encounter
--- OUTSIDE RECORDS SUMMARY | 2024-04-19 08:14 | XMS_ITS | Encounter Summary ---
Author Organization [facility] Address [address] [place] [address] Care Team Providers Care Buffing Line Set Up Worker Name Role Phone Rustam Alberto MD Primary Care Provider Unav ailable Reason for Visit * Reason Comments Follow-up h/o BCC Skin Exam FBSE Skin Lesion above left eyebrow x 1 year Encounter Details Date Type Department Care Team (Late st Contact Info) Description 12/12/2014 13:30 EDT Office Visit [facility] Dermatology 3rd Floor [facility] [address] [place] [address] Cameron Garner MD [address] [place] [address] [place] [phone] History of basal cell carcinoma (Primary Dx); Seborrheic keratoses Social History Tobacco Use Types Packs/Day Years [...] as of this encounter Discharge Diagnoses Diagnosis V10.83 PERS HX SKIN MALIGNANCY NEC[ICD-9-CM] 702.19 SEBORRHEIC KERATOSIS NOS[ICD-9-CM] documented in this encounter Patient Instructions * Patient Instructions* Mariela Del Rio MD - 12/12/2014 13:26 EDT Recommendations for Sun Protection Ultraviolet (UV) [...] during these hours. Limit outdoor activities to oven drier tender and/or evening hours when the sunlight is [...] provide. In general, loose weaves (Cotton) and bereavement program coordinator-colored fabrics offer less protection than tighter weaves [...] Recommended sun protection clothing websites www.sunprecautions.com www.coolibar.com www.sade.Stroho www.Checkd.In.Stroho documented in this encounter Progress Notes * Mariela Del Rio MD - 12/12/2014 1317 EDT Dermatology Outpatient Visit Note Chief Complaint Patient presents with ??? Follow-up h/o BCC ??? Skin Exam FBSE ??? Skin Lesion above left eyebrow x 1 year Dermatologic History: 1. basal cell carcinoma, left lower eyelid s/p Mohs 2007 Last Dermatology office visit: November 2013 SUBJECTIVE Ms. Garvey is a 64 y.o. female who presents for follow up for FBSE. Skin cancer history as above. She has no specific areas of concern today, no areas itching, bleeding or changing. She is otherwise well and no major changes in medical history. No other cutaneous concerns. For full Medical, Surgical, Family, and Social histories, please see the History section of this encounter in the electronic chart which I have personally reviewed. For Review of Systems, Medications and Allergies, please see those sections of this encounter in the electronic chart which I have also reviewed. She has a current medication list which includes the following prescription(s): acetaminophen. She is allergic to cats and melatonin. OBJECTIVE VS: There were no vitals taken for this visit. Ms. Garvey is healthy female sitting on the examination table with a normal affect. She is alert and oriented to person, place and time. She has Awad type III skin. Cutaneous full body examination including the hair, scalp, face, eyelids, lips, neck, chest, back, abdomen, all four extremities, hands, feet, digits and nails was performed.The examination was normal with the addition ofthe following comments: There were no lesions suspicious for malignancy. -left lower lid: well healed scar with no nodules or ulcers -trunk and extremities: scattered 3-6 mm medium brown stuck on verrucous papules, 1-3 mm red domed shaped papules ASSESSMENT 1. History of basal cell carcinoma, left lower lid 2. Seborrheic keratoses PLAN 1. Well healed scar with no signs of recurrence. No lesions suspicious for malignancy today. The nature of sun-induced photo-aging and skin cancers was discussed. Sun avoidance, protective clothing, and the use of SPF 50+ sunscreens was advised. 2. Dicussed benign nature and no need for further treatment. Return in about 1 year (around 12/13/2015) for FBSE. She will f/u as planned or in the interim should problems arise. Mariela Del Rio MD 12/12/2014 13:17 Attestation Statement: I saw and examined the patient with the resident/fellow. I agree with the findings and plan of care documented in the resident's/fellow's note. Cameron Garner MD * Marissa Nichols - 12/12/2014 1314 EDT Review of Systems Constitutional: Negative for [...] sleep disturbance. The patient is not nervous/anxious. Marissa Nichols 13:14 12/12/2014 Machine I Engraver, Dermatology documented in this encounter Plan of Treatment Upcoming Encounters Date Type Department Care Team (Late st Contact Info) Description 07/21/2024 11:00 EDT Office Visit [facility] Ophthalmology - [address] [phone] Marcial Magaña MD [address] [place] [address] 5 [place] [phone] 07/25/2024 11:00 EDT Phlebotomy Only [facility] Hematology & Oncology - [address] [phone] Blood Doctor, [facility] Hem Onc 07/25/2024 11:45 EDT Office Visit [facility] Hematology & Oncology [address] [phone] Abebe Ralph MD [address] [place] [address], Level [address] [place] [phone] 07/25/2024 12:30 EDT Appointment [facility] Hematology & Oncology - [address] [address] 01/03/2025 16:20 EDT Appointment [facility] Breast Imaging Mammography - [address] [address] documented as of this encounter Visit Diagnoses Diagnosis History of basal cell carcinoma- Primary Personal history of other malignant neoplasm of skin Seborrheic keratoses Encounter for screening mammogram for malignant neoplasm of breast Other screening mammogram documented in this encounter Discontinued Medications Medication Sig Discontinue Reason Start Date End Da te CALCIUM CARBONATE/VITAMIN D3 (CALCIUM + D ORAL) Take by mouth daily. 07/29/2010 12/13/19 15 DOCOSAHEXANOIC ACID/EPA (FISH OIL ORAL) Take by mouth daily. 12/06/2009 12/12/2014 Flaxseed Powd Take by mouth. 12/12/2014 ibuprofen (MOTRIN) 200 mg tablet Take 200 mg by mouth every 6 hours as needed. 12/12/2014 triamcinolone (KENALOG) 0.1 % cream Apply topically. To affected areas as necessary for itching, no more than 2-3 times/day 07/29/2010 12/12/2014 Vitamin E 400 unit Tab Take by mouth daily. 12/06/200911/22 documented as of this encounter Care Teams Buffing Line Set Up Worker Relationship Specialty Start Date End Date Rustam Alberto MD PCP - General 11/26/10 08/10/18 documented as of this encounter
--- OUTSIDE RECORDS SUMMARY | 2024-04-19 08:14 | XMS_ITS | Encounter Summary ---
Author Organization [facility] Address [address] [place] [address] Care Team Providers Care Lesson Instructor Name Role Phone Rustam Alberto MD Primary Care Provider Unav ailable Reason for Visit * Reason Comments Medication Education Forteo Encounter Details Date Type Department Care Team (Latest Contact Info) Description 09/02/2016 10:00 EDT Office Visit [facility] Rheumatology & Immunology - [address] [phone] Unknown, Provider, Roberto Carlos Lug[facility] Age-related osteoporosis without current pathological fracture (Primary Dx); Encounter for long-term (current) use of medications Discharge Disposition: Auto Discharge Social History Tobacco [...] M81.0 Age-related osteoporosis without current pathological fracture-M81.0[ICD-10-CM] Z79.899 Other long term care social worker (current) drug therapy-Z79.899[ICD-10-CM] documented in this encounter Patient Instructions * Patient Instructions* Emma Correa RN - 09/02/2016 10:00 EDT Your first dose of Forteo was on 09/02/2016 at 10:30 AM. Take your Forteo injection at the same time every day. If it has been more than 8 hours since your injection was due to be taken, skip the dose, and take it the next day at your usual time. Start your next new injection pen after 28 days on 09/30/16. Go to the lab for blood work in one month. Blood draw should be at least 16 hours after your last Forteo injection. Call Dr. Rees if you have persistent nausea, vomiting, constipation, low energy, or muscle weakness. These may be signs there is too much calcium in the blood (hypercalcemia). Please read the written information provided at your nurse teaching visit. documented in this encounter Ordered Prescriptions Prescription Sig Dispense Quantity Refills Last Filled Start Date End Date teriparatide 20 mcg/dose - 600 mcg/2.4 mL pen injector Inject 0.08 mL into the skin daily. 2.4 mL 5 09/02/2016 09/25/2016 documented in this encounter Discharge Disposition Disposition Code Departure Means Destination Auto Discharge documented in this encounter Progress Notes * Emma Correa RN - 09/02/2016 1000 EDT [facility] Rheumatology & Immunology Teriparatide (Forteo) Instruction and Administration Visit 09/02/2016 Patient here for Teriparatide (Forteo) Instruction 1. Route: Subcutaneous Location: Left thigh 2. Med Lot #: [id number] 3. Exp Date: 12/2017 4. Conveyor System Operator: Maria Barbara Forteo 20 mcg SC injection administered by patient. Successful with good technique? Yes Patient Education Topic: Teriparatide (Forteo) Administration Method: Demonstration, Handout and Verbal Taught to: Patient Barriers: None Outcomes: independent, verbalized understanding and return demonstration ?? Medication has insurance approval through 08/26/17. ?? Use of injection pen demonstrated by nurse. ?? Patient practiced with demonstration pen. ?? Starter kit supplied to patient and contents reviewed. ?? Instruction given about the purpose, action, and side effects of medication, 2 year limit, importance of daily hydration, keeping medication refrigerated, starting new injection pen every 28 days,taking injection at same time each day, and proper needle disposal. ?? Patient instructed to call MD for signs/symptoms of hypercalcemia: dizziness, nausea/vomiting, muscle weakness, constipation. ?? Patient verbalizes willingness and demonstrates ability to continue medication administration athome. All patient's questions were answered. ?? Serum calcium and creatinine to be checked in 1 month. Lab requisition completed for [facility]. Patient instructed to get blood drawn at least 16 hours after Forteo injection. ?? Follow-up appointment with Dr. Rees on 04/10/17. I was supervised by Dr. Juares who was present and immediately available in the office suite. EMMA CORREA RN 09/02/2016 11:02 documented in this encounter Plan of Treatment Upcoming Encounters Date Type Department Care Team (Late st Contact Info) Description 07/21/2024 11:00 EDT Office Visit [facility] Ophthalmology [address] [phone] Marcial Magaña MD [address] [place] [address], Level [address] [place] [phone] 07/25/2024 11:00 EDT Phlebotomy Only [facility] Hematology & Oncology [address] [phone] Blood Doctor, [facility] Hem Onc 07/25/2024 11:45 EDT Office Visit [facility] Hematology & Oncology [address] [address] Abebe Ralph MD 111 [facility], [facility], Level [address] [place] [phone] 07/25/2024 12:30 EDT Appointment [facility] Hematology & Oncology - [facility] [address] [place] [address] 01/03/2025 16:20 EDT Appointment [facility] Breast Imaging Mammography - [facility] [address] [place] [address] documented as of this encounter Visit Diagnoses Diagnosis Age-related osteoporosis without current pathological fracture- Primary Senile osteoporosis Encounter for long-term (current) use of medications Encounter for long-term (current) use of other medications Encounter for screening mammogram for malignant neoplasm of breast Other screening mammogram documented in this encounter Discontinued Medications Medication Sig Discontinue Reason Start Date End Da te teriparatide 20 mcg/dose - 600 mcg/2.4 mL pen injector Inject 0.08 mL into the skin daily. Reorder 08/27/2016 09/02/2016 documented as of this encounter Orders Equipment Count Last Ordered Date First Orde red Date GENERIC DME ORDER 1 09/02/2016 documented in this encounter Care Teams Lesson Instructor Relationship Specialty Start Date End Date Rustam Alberto MD PCP - General 11/26/10 08/10/18 documented as of this encounter
--- OUTSIDE RECORDS SUMMARY | 2024-04-19 08:14 | XMS_ITS | Encounter Summary ---
Author Organization [facility] Address [address] [place] [address] Care Team Providers Care Hydrogenation Operator Name Role Phone Rustam Alberto MD Primary Care Provider Unav ailable Encounter Details Date Type Department Care Team (Late st Contact Info) Description 11/18/2017 Orders Only [facility] Osteoporosis - Main [place] [address] [place], [place] [phone] Emma Correa RN Other osteoporosis without current pathological fracture (Primary [...] Info) Description 07/21/2024 11:00 EDT Office Visit [facility] Ophthalmology - [address] [phone] Marcial Magaña MD [address] [place] [address], [facility] 5 [place] [phone] 07/25/2024 11:00 EDT Phlebotomy Only [facility] Hematology & Oncology [address] [address] Blood Doctor, [facility] Hem Onc 07/25/2024 11:45 EDT Office Visit [facility] Hematology & Oncology [address] 765211 Abebe Ralph MD [address] [place] [address] 2 [place] [phone] 07/25/2024 12:30 EDT Appointment [facility] Hematology & Oncology [address] [address]31 01/03/2025 16:20 EDT Appointment [facility] Breast Imaging Mammography - [address] 000421 documented as of this encounter Visit Diagnoses Diagnosis Other osteoporosis without current pathological fracture- Primary Encounter for screening mammogram for malignant neoplasm of breast Other screening mammogram documented in this encounter Orders Equipment Count Last Ordered Date First Orde red Date GENERIC DME ORDER 1 11/18/2017 documented in this encounter Care Teams Hydrogenation Operator Relationship Specialty Start Date End Date Rustam Alberto MD PCP - General 11/26/10 08/10/18 documented as of this encounter
--- OUTSIDE RECORDS SUMMARY | 2024-04-19 08:14 | XMS_ITS | Encounter Summary ---
Author Organization [facility] Address [address] [place] [address] Care Team Providers Care Bank Appraiser Name Role Phone Rustam Alberto MD Primary Care Provider Unav ailable Encounter Details Date Type Department Care Team (Late st Contact Info) Description 02/12/2009 Abstract [facility] Dermatology 5th Floor [address] [phone] Lora Lou MD [address] [place] [phone] Personal History of Other Malignant Neoplasm of Skin; Other Seborrheic Keratosis Social History Tobacco Use Types Packs/Day Years [...] Info) Description 07/21/2024 11:00 EDT Office Visit [facility] Medical [place] Ophthalmology - [address] [phone] Marcial Magaña MD 111 [facility], [facility] 5 [place] [phone] 07/25/2024 11:00 EDT Phlebotomy Only [facility] Hematology & Oncology [address] 480871 Blood Doctor, [facility] Hem Onc 07/25/2024 11:45 EDT Office Visit [facility] Hematology & Oncology [address] [phone] Abebe Ralph MD [address] [place] [address] Level [address] [place] [phone] 07/25/2024 12:30 EDT Appointment [facility] Hematology & Oncology [address] [phone] 01/03/2025 16:20 EDT Appointment [facility] Breast Imaging Mammography - [address] [phone] documented as of this encounter Visit Diagnoses Diagnosis Personal history of other malignant neoplasm of skin Other seborrheic keratosis Encounter for screening mammogram for malignant neoplasm of breast Other screening mammogram documented in this encounter Care Teams Bank Appraiser Relationship Specialty Start Date End Date Rustam Alberto MD PCP - General 09/06/08 06/25/10 documented as of this encounter
--- OUTSIDE RECORDS SUMMARY | 2024-04-19 08:14 | XMS_ITS | Encounter Summary ---
Author Organization [facility] Address [address] [place] [address] Care Team Providers Care Box Covering Machine Operator Name Role Phone Rustam Alberto MD Primary Care Provider Unav ailable Reason for Visit * Reason Comments Skin Exam FBSE, h/o BCC Encounter Details Date Type Department Care Team (Late st Contact Info) Description 11/03/2017 13:00 EDT Office Visit [facility] Dermatology 3rd Floor [facility] [address] [place], [place] [id number] Cameron Garner MD [address] [place] [phone] History of nonmelanoma skin cancer (Primary Dx); Lentigines; Seborrheic keratoses Discharge Disposition: Auto Discharge Social History Tobacco [...] Discharge Diagnoses Diagnosis L82.1 Other seborrheic keratosis-L82.1[ICD-10-CM] L81.4 Other melanin hyperpigmentation-L81.4[ICD-10-CM] Z85.828 Personal history of other malignant neoplasm of skin-Z85.828[ICD-10-CM] documented in this encounter Discharge Disposition Disposition Code Departure Means Destination Auto Discharge documented in this encounter Progress Notes * Nai Shanks - 11/03/2017 1300 EDT Review of Systems Constitutional: Negative for [...] The patient is not nervous/anxious. Nai Shanks 11/03/2017 13:18 * Guera Calderón MD - 11/03/2017 1300 EDT Dermatology Outpatient Visit Note Chief Complaint Patient presents with ??? Skin Exam FBSE, h/o BCC Dermatologic History: 1. Hx of basal cell carcinoma, left lower eyelid s/p Mohs 2007 Last Dermatology office visit: 12/17/15 SUBJECTIVE Ms. Garvey is a 67 y.o. female who presents for follow up for full body skin exam. Her skin has been doing well for the last two years. She has notice more flat brown spots pop up on her shoulders and extremities since her last visit. They are all asymptomatic and seem to stabilize. Denies any other changing pigmented lesions. Denies any other new painful, itching, or bleeding lesions. She wears sunscreen as much as possible when she is outside gardening and always wears a sunhat. For full Medical, Surgical, Family, and Social histories, please see the History section of this encounter in the electronic chart which I have personally reviewed. For Review of Systems, Medications and Allergies, please see those sections of this encounter in the electronic chart which I have also reviewed. She has a current medication list which includes the following prescription(s): acetaminophen, calcium carbonate, cholecalciferol (vitamin d3), lutein, multivitamins with minerals, omega-3s/dha/epa/fish oil, teriparatide, and UNABLE TO FIND. She is allergic to cats and melatonin. OBJECTIVE VS: There were no vitals taken for this visit. Ms. Garvey is healthy, well developed, well-nourished and in no acute distress female sittingon the examination table with a normal affect. She is alert and oriented to person, place and time.She has Awad type III skin. Cutaneous full body examination including the hair, scalp, face,eyelids, lips, neck, chest, back, abdomen, buttocks, all four extremities, hands, feet, digits and nails was performed.The examination was normal with the addition of the following comments: - left lower eyelid: well healed surgical scar without evidence of recurrence - scattered uniform brown macules on upper back and extremities - right lower leg: ~2cm brown stuck on appearing low plaque ASSESSMENT/PLAN Lentigines - Reassure the patient that these are benign lesions due to chronic sun exposure and that no treatment is required - The ABCDEs and juan alberto duckling rule of melanoma screening were reviewed with the patient. Seborrheic keratoses: - Patient was reassured of the benign nature of these lesions and that no treatment is required. History of basal cell carcinoma of the left lower eyelid - No visible or palpable evidence of recurrence on today's exam - Discussed with the patient that is not uncommon to have a patient get a single BCC and with diligent sun protection and skin care they do not have more arise in the following years. Due to her manyyears of benign skin exams we feel comfortable [...] or in the interim should problems arise. Return if symptoms worsen or fail to improve, for FBSE. Guera Calderón MD 11/03/2017 13:40 Attestation Statement: I saw and examined the patient with the resident/fellow. I agree with the findings and plan of care documented in the resident's/fellow's note. Cameron Garner MD documented in this encounter Plan of Treatment Upcoming Encounters Date Type Department Care Team (Late st Contact Info) Description 07/21/2024 11:00 EDT Office Visit [facility] Ophthalmology - [address] [phone] Marcial Magaña MD [address] [place] [address], [facility] [address] [place] [phone] 07/25/2024 11:00 EDT Phlebotomy Only [facility] Hematology & Oncology [address] [phone] Blood Doctor, [facility] Hem Onc 07/25/2024 11:45 EDT Office Visit [facility] Hematology & Oncology [address] [phone] Abebe Ralph MD [address] [place] [address], [address] [place] [phone] 07/25/2024 12:[address] [facility] Hematology & Oncology [address] [phone] 01/03/2025 16:20 EDT Appointment [facility] Breast Imaging Mammography - [address] [address] documented as of this encounter Visit Diagnoses Diagnosis History of nonmelanoma skin cancer- Primary Personal history of other malignant neoplasm of skin Lentigines Other dyschromia Seborrheic keratoses Encounter for screening mammogram for malignant neoplasm of breast Other screening mammogram documented in this encounter Historical Medications * This list may reflect changes made after this encounter. UNABLE TO FIND as needed. Med Name: Quick Immune Response 06/15/2020 added in this encounter Care Teams Box Covering Machine Operator Relationship Specialty Start Date End Date Rustam Alberto MD PCP - General 11/26/10 08/10/18 documented as of this encounter
--- OUTSIDE RECORDS SUMMARY | 2024-04-19 08:14 | XMS_ITS | Encounter Summary ---
Author Organization [facility] Address [address] [place] [address] Care Team Providers Care Sorting Machine Operator Name Role Phone Skye Hernandez Primary Care Provider Reason for Referral * Medication Prior Authorization (Routine) - Closed Specialty Diagnoses / Procedures [facility] Referred To Contact Diagnoses Other osteoporosis without current pathological fracture Roberto Carlos Landin MD Referral ID Status Reason Start Date Expiration Date Visits Requested Visits Authorized [id number] Closed Medication Prior Authorization 09/09/2018 10/07/2019 1 1 Question Answer Medication to be Prior Authorized: Denosumab Comments The purpose of this consult request is to inform the scheduling staff that a medication needs to be prior-authorized before it is prescribed and/or administered. Reason for Visit * Reason Comments Medication Management Forteo started 08/21 06/06 -- LAST DOSE 08/30/18 Results DXA today Other recently diagnosed w ith invasive ductal breast cancer -- SURGERY 09/16/18 Encounter Details Date Type Department Care Team (Latest Contact Info) Description 09/09/2018 10:15 EDT Office Visit [facility] [place] [address] [place] [address] Roberto Carlos Landin MD Other osteoporosis without [...] Sign Reading Time Taken Comments Blood Pressure 140/78 09/09/2018 1033 EDT Pulse 68 09/09/2018 1033 EDT Temperature - - Respiratory Rate - - Oxygen Saturation - - Inhaled Oxygen Concentration - - Weight 70.3 kg (155 lb) 09/09/2018 1033 EDT Height 163.6 cm (5' 4.4) 09/09/2018 1033 EDT Body Mass Index 26.28 09/09/2018 1033 EDT documented in this encounter Functional Status [...] encounter Progress Notes * Roberto Carlos Landin MD, - 09/09/2018 1015 EDT [facility] PROGRESS/FOLLOW UP NOTE PROBLEM: Osteoporosis. SUBJECTIVE: Ms. Garvey is a 67 y.o. year old female here for follow up of osteoporosis and completion of two years treatment with teriparatide. ??She presented [facility] to [facility],, due to a previous bone density done in March,. Due to the patient???s concern regarding the accuracy of the initial testing, the DXA was repeated here at [facility] in August. ??The initial DXA was performed on a Hologic device at [facility] and only measured the left hip. ??The repeatstudies including today's were done on MOGLr iDXA and measured both hips. ??Therefore a true comparison cannot be made between the two studies. The results were comparable showing osteoporosis at the spine and also the femoral neck on the March study. ? Date Spine L1-4 BMD Spine L1-4 T-score Total Hip BMD Total Hip T-Score Femoral??Neck BMD Femoral??Neck T-Score ??09/09/2018 ??0.758 -3.5 0.848 -1.3 0.713 -2.3 04/15/16 0.606 -4.0 0.684 -2.1 0.528 -2.9 08/29/2016 0.737 -3.7 0.846 -1.3 0.710 -2.4 ?? She had been prescribed alendronate shortly after the results from March were known but could nottolerate due to diarrhea and muscle pain. ??Given the level of bone density, it was felt she would benefit from a two year course of teriparatide which was initially started on 09/02/16. ??She developed some arthralgias, but in time was able to tolerated the medication sufficiently that she remainedon it continuously since then completing her medication just 10 days ago. She is here to discuss next steps in treatment. Jeffery was diagnosed as having an invasive ductal carcinoma of the right breast from a biopsy on September 01 of this month. She has seen Kimi Deleon, breast surgeon, at [facility] and will be undergoingsurgery with a lumpectomy and sentinel node dissection in the near future. This will be followed byradiation and possible chemo. She has not seen an oncologist and has not had an appointment scheduled as of yet. MEDICATIONS: Current Outpatient Medications: acetaminophen (TYLENOL) 325 mg tablet Calcium Carbonate (TUMS ULTRA) 400 mg calcium (1,000 mg) tablet,chewable Lutein 10 mg tablet Multivitamins with Minerals tablet tablet OMEGA-3S/DHA/EPA/FISH OIL (OMEGA 3 ORAL) UNABLE TO FIND No current facility-administered medications for this visit. REVIEW OF SYSTEMS: Yes/No Yes/No Any broken bones in the past year No Kidney Insufficiency No Height Loss No Kidney Stones No Amount: Numbness/Tingling No Weight Change YES Muscle Weakness No Gain or Loss? Amount: 7 lb loss Diabetes No Lack of Regular Exercise No Overactive or Underactive Thyroid (hyper/hypothyroidism) No Dental problems or expected dental work No Overactive Parathyroid (high calcium in blood) No Muscle or Bone Pain Lower legs, mild Use of Steroid Medications No Joint Pain No Hormonal or Estrogen Therapy No Thigh Pain No Any falls during the past year No Chest Pain No Do you avoid sun exposure YES Palpitations No Vitamin D Supplements YES Shortness of Breath No Amount: 2000 iu/day Difficulty Swallowing No Calcium Supplements No Nausea/Vomiting No Amount: Frequent Heartburn No Number of dairy servings per day 2-3 Stomach Pains/Cramps No OBJECTIVE: BP 140/78 Pulse 68 Ht 163.6 cm (64.4) Wt 70.3 kg (155 lb) BMI 26.28 kg/m?? Constitutional: Healthy, alert and not in acute [...] ANATITER, ANCATITER Imaging (excluding DXA): None ASSESSMENT: Ms. Garvey has osteoporosis with low bone density and it has just completed 2 years of treatment with teriparatide. She has had a significant improvement in the density of around 25% at both the spine and hips. At this time she needs to begin an antiresorptive but has had difficulty tolerating alendronate in the past. Given her bone density I would recommend parenteral treatmenteither with denosumab or zoledronic acid. This choice however is being complicated by the recent diagnosis of breast cancer and will probably not be made until she sees her oncologist in the next couple of months. After discussing this with her we will do a prior authorization for denosumab. PLAN: 1. For now she will continue her vitamin D supplement and dietary calcium. 2. Preauthorization for denosumab 60 mg every 6 months. 3. Once her oncologist has come on board for her treatment we will discuss starting denosumab if approved or zoledronic acid as a back-up. 4. Follow-up in 1 year. Roberto Carlos Landin MD 09/09/2018 11:24 documented in this encounter Plan of Treatment Upcoming Encounters Date Type Department Care Team (Late st Contact Info) Description 07/21/2024 11:00 EDT Office Visit [facility] Ophthalmology [address] [phone] Marcial Magaña MD [address] [place] [address] [address] [place] [phone] 07/25/2024 11:00 EDT Phlebotomy Only [facility] Hematology & Oncology [address] [phone] Blood Doctor, [facility] Hem Onc 07/25/2024 11:45 EDT Office Visit [facility] Hematology & Oncology [address] [phone] Abebe Ralph MD [address] [place] [address], [address] [place] [phone] 07/25/2024 12:30 EDT Appointment [facility] Hematology & Oncology - [address] [phone] 01/03/2025 16:20 EDT Appointment [facility] Breast Imaging Mammography - [address] [phone] Scheduled Referrals Name Type Priority Associated Diagnoses Orde r Schedule AMB MEDICATION PRIOR AUTHORIZATION Outpatient Referral Routine Other osteoporosis without current pathological fracture Ordered: 09/09/2018 documented as of this encounter Visit Diagnoses Diagnosis Other osteoporosis without current pathological fracture- Primary Encounter for screening mammogram for malignant neoplasm of breast Other screening mammogram documented in this encounter Discontinued Medications Medication Sig Discontinue Reason Start Date End Da te cholecalciferol, Vitamin D3, 1,000 unit tablet Take 1,000 Units by mouth daily. Patient Stopped Taking 09/09/2018 teriparatide 20 mcg/dose - 600 mcg/2.4 mL pen injector Inject 0.08 mL into the skin daily. Therapy completed 07/13/2018 09/09/2018 documented as of this encounter Care Teams Sorting Machine Operator Relationship Specialty Start Date End Date Skye Hernandez [address] [place] [address] PCP - General 08/11/18 01/02/22 documented as of this encounter
--- OUTSIDE RECORDS SUMMARY | 2024-04-19 08:14 | XMS_ITS | Encounter Summary ---
Author Organization [facility] Address [address] [place] [address] Care Team Providers Care Locomotive Observer Name Role Phone Rustam Alberto MD Primary Care Provider Unav ailable Reason for Visit * Reason Onset Date Comments Medication Questions 09/17/2016 FORTEO Discuss Test Results 09/17/2016 Dexa scan roberto carlos florez report Encounter Details Date Type Department Care Team (Late st Contact Info) Description 09/17/2016 Telephone [facility] Rheumatology & Immunology - [address] [phone] Kim Rees MD Medication Questions (FORTEO); Discuss Test Results (Dexa scan written report) Social History Tobacco Use Types Packs/Day Years [...] Telephone Encounter - Emma Correa RN - 09/17/2016 1357 EDT Spoke with patient. 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 She [place] on the [place] and did well. Fell once but not hard, foot got stuck in deepmud. Taking Forteo injections daily without problems. * Telephone Encounter - Emma Correa RN - 09/17/2016 1241 EDT Left message for patient. Dr. Rees left patient a voicemail on 09/08 to let her know the 08/29 DXA results at [facility] are similar to the [facility] DXA results, and advised patient continue treatment with Forteo. Pt started Forteo 09/02/16. Asked her to call back with any further questions. * Telephone Encounter - Bucky Michel - 09/17/2016 0844 EDT Patient is calling about dexa scan from August 29 she received a written report and also would like to discuss the Forteo. documented in this encounter Plan of Treatment Upcoming Encounters Date Type Department Care Team (Late st Contact Info) Description 07/21/2024 11:00 EDT Office Visit [facility] Ophthalmology - [address] [phone] Marcial Magaña MD [address] [facility], [address] [place] [phone] 07/25/2024 11:00 EDT Phlebotomy Only [facility] Hematology & Oncology [address] [phone] Blood Doctor, [facility] Hem Onc 07/25/2024 11:45 EDT Office Visit [facility] Hematology & Oncology [address] [phone] Abebe Ralph MD [address] [place] [address] [address] [place] [phone] 07/25/2024 12:30 EDT Appointment [facility] Hematology & Oncology [address] [phone] 01/03/2025 16:20 EDT Appointment [facility] Breast Imaging Mammography - [address] [phone] documented as of this encounter Visit Diagnoses Not on filedocumented in this encounter Care Teams Locomotive Observer Relationship Specialty Start Date End Date Rustam Alberto MD PCP - General 11/26/10 08/10/18 documented as of this encounter
--- OUTSIDE RECORDS SUMMARY | 2024-04-19 08:14 | XMS_ITS | Encounter Summary ---
Author Organization [facility] Address [address] [place] [address] Care Team Providers Care Biostatistics Director Name Role Phone Greta Garcia KALEY Primary Care Provider [phone] Reason for Visit * Reason Comments Follow-up break out on chest Encounter Details Date Type Department Care Team (Late st Contact Info) Description 07/29/2010 15:30 EDT Office Visit [facility] Dermatology 5th Floor [address] [phone] Timmy Lou MD [address] [place] [phone] Inflamed seborrheic keratosis (Primary Dx) Social History Tobacco Use Types [...] :11 EDT documented as of this encounter Ordered Prescriptions Prescription Sig Dispense Quantity Refills Last Filled Start Date End Date triamcinolone (KENALOG) 0.1 % cream Apply topically. To affected areas as necessary for itching, no more than 2-3 times/day 45 g 3 07/29/2010 5 documented in this encounter Progress Notes * Laureen Santos - 07/29/2010 1538 EDT Dermatology Outpatient Visit Note SUBJECTIVE Follow-up for new rash Ms. Garvey is a 59 y.o. female who presents for a skin check. Last Dermatology office visit: November 2009 History of Present Illness: The patient complains of an itchy raised rash on her chest which started about 2 months. She is uncertain if she was using or eating anything new around that time. She reports that it was extremely pruritic. She reports though that the rash is almost completely gone. She has no other questions or concerns today. She reports no interval change in her health since her previous visit. Review of Systems: As noted in progress notes section. The patient's past medical, family and social histories have been reviewed along with current medications and allergies. OBJECTIVE VS: There were no vitals taken for this visit. Physical Exam: Limited Exam On physical examination, in general, Ms. Garvey is a female who presents well-groomed, well-nourished and appears stated age and is is in no apparent distress. She is alert and oriented to person, place and time. Cutaneous examination of the chest was performed. The examination was normal with the addition of the following comments: There are scattered waxy, esteves papules which appear inflamed. ASSESSMENT AND PLAN Assessment 1. Irritated seborrheic keratoses Plan 1. Discussed with the patient that it is difficult to determine what exactly caused the itchy rash as it has resolved. She does have some inflamed seborrheic keratoses but this is unlikely to fully account for the rash. Reiterated to her the importance of sun protection and sunscreen (which she appears to be doing well). 2. If the rash re-appears in the future, have provided her with a prescription for 0.1% triamcinolone cream to be applied as necessary for itching. 3. The patient will keep her regularly scheduled appointment. Laureen Santos MD 07/29/2010 15:36 Attestation statement: I saw and examined the patient with the resident/fellow during this visit. Iagree with the findings and plan of care documented in the resident's/fellow's note. TIMMY LOU MD 08/04/2010 12:37 * Guru RodriguezElias - 07/29/2010 1524 EDT A complete 12 point review of systems was obtained and reviewed. All systems are negative except for: tingling. Guru Caicedo Dajuan Reviewed by Laureen Santos MD 07/29/2010 documented in this encounter Plan of Treatment Upcoming Encounters Date Type Department Care Team (Late st Contact Info) Description 07/21/2024 11:00 EDT Office Visit [facility] Ophthalmology - [address] [phone] Marcial Magaña MD [address] [place] [address] 5 [place] [phone] 07/25/2024 11:00 EDT Phlebotomy Only [facility] Hematology & Oncology - [address] [phone] Blood Doctor, [facility] Hem Onc 07/25/2024 11:45 EDT Office Visit [facility] Hematology & Oncology [address] [phone] Abebe Ralph MD [address] [place] [address], [address] [place] [phone] 07/25/2024 12:30 EDT Appointment [facility] Hematology & Oncology - [address] [phone] 01/03/2025 16:20 EDT Appointment [facility] Breast Imaging Mammography - [address] [phone] documented as of this encounter Visit Diagnoses Diagnosis Inflamed seborrheic keratosis- Primary Encounter for screening mammogram for malignant neoplasm of breast Other screening mammogram documented in this encounter Historical Medications * This list may reflect changes made after this encounter. CALCIUM CARBONATE/VITAMIN D3 (CALCIUM + D ORAL) Take by mouth daily. 07/29/2010 12/12/2014 added in this encounter Care Teams Biostatistics Director Relationship Specialty Start Date End Date Greta Garcia FNP [address] [place] [address] PCP - General 06/26/10 11/25/10 documented as of this encounter
--- OUTSIDE RECORDS SUMMARY | 2024-04-19 08:14 | XMS_ITS | Encounter Summary ---
Author Organization [facility] Address [address] [place] [address] Care Team Providers Care Manager Code Name Role Phone Skye Hernandez Primary Care Provider [phone] Reason for Referral * (Routine) - New Request Specialty Diagnoses / Procedures Referred By Contac t Referred To Contact Diagnoses Intermediate stage nonexudative age-related macular degeneration of both eyes Procedures FLUORESCEIN ANGIOGRAPHY Marcial Magaña MD Phone: tel: fax: Referral ID Status Reason Start Date Expiration Date V isits Requested Visits Authorized [id number] New Request 08/12/2018 1 1 * (Routine) - New Request Specialty Diagnoses / Procedures Referred By Contac t Referred To Contact Diagnoses Intermediate stage nonexudative age-related macular degeneration of both eyes Procedures EYE PHOTOGRAPHY (FUNDUS) Marcial Magaña MD Phone: tel: fax: Referral ID Status Reason Start Date Expiration Date V isits Requested Visits Authorized [id number] New Request 08/12/2018 1 1 Reason for Visit * Reason Comments Eye Problem Wet AMD eval from Dr Elias Palomares at [facility] Encounter Details Date Type Department Care Team (Late st Contact Info) Description 08/12/2018 12:45 EDT Office Visit [facility] Ophthalmology - [address] [phone] Quentin Coronado MD [address] [place] [phone] Marcial Magaña MD [address] [place] [phone] Social History Tobacco Use Types Packs/Day [...] this encounter Progress Notes * Marcial Magaña - 08/12/2018 1245 EDT Chief Complaint Patient presents with ??? Eye Problem Wet AMD eval from Dr. Palomares at [facility] HPI Location: Both eyes Pain: 0 - No pain Quality: Severity: Duration: Months Timing: Constant Lasts: Continuous Context: Patient followed by Dr. Palomares at [facility] for dry AMD, on Thursday was seen and OCT showed changes. Patient sent here for eval. Modifying factors: She had no pain, no new flashes or floaters and she has not noticed any changes on her amsler grid Associated Signs & Symptoms: Visual Fluctuations: None Attestation: The above HPI has been reviewed by the Attending PhysicianPt reports no pain, no flashes of light, no floaters, no AG changes. Referred here for changes on Amsler grid noticed by Dr Palomares who follows her q 6 months with fundus exam and OCT. Base Eye Exam Visual Acuity (Snellen - Linear) Right Left Dist sc 20/30 20/30 Dist ph sc 20/25 +2 20/20 Tonometry (Applanation, 13:15) Right Left Pressure 16 13 Pupils Pupils Light APD Right PERRL 4 None Left PERRL 4 None Visual Colmenares (Counting fingers) Right Left Full Full Extraocular Movement Right Left Full, Ortho Full, Ortho Neuro/Psych Oriented x3: Yes Mood/Affect: Normal Dilation Both eyes: 1.0% Mydriacyl, 2.5% Phenylephrine @ 13:15 Additional Tests Color Right Left Ishihara 03/04 03/04 Slit Lamp and Fundus Exam Slit Lamp [...] and large drusen, PED inferior to fovea intermediate and large drusen Vessels Normal Normal Periphery Attached without predisposing lesions Attached without predisposing lesions Please refer to large retinal drawing. IMAGING:OCT REPORT Indications: Age-related Macular Degeneration Findings: Right Eye Left Eye Drusen, subfoveal PED, no fluid. OCT A no CNV or flow inside PED Drusen, no fluid. OCT A no visibleCNV Original test to be found in patients shadow chart IVFA DONE TODAY REFER TO CHART FOR FULL IMAGING Findings: Staining of Drusen, no leakage compatible with CNV both eyes DIAGNOSES: 1. Intermediate stage nonexudative age-related macular degeneration of both eyes EYE PHOTOGRAPHY (FUNDUS) FLUORESCEIN ANGIOGRAPHY 2. Nuclear sclerosis of both eyes IMPRESSION & PLAN: Intermediate dry AMD both eyes No sign of CNV on exam, OCT, OCT-A and IVFA. Cont using Fatwire tablets as recommended by Dr Palomares Eat omega 3 rich food and green leafy green vegetables AG once a week, any changes or decrease in vision, call Dr. Plaomares. Nuclear sclerosis both eyes Not visually significant Monitor. Return to Dr Palomares for follow up every 6 months. Follow up with G[facility] per Dr Palomares I have reviewed the past medical, family, [...] while he is personally performing the service. Marcial Magaña MD/Leticia SHRESTHA (Scribe) documented in this encounter Plan of Treatment Upcoming Encounters Date Type Department Care Team (Late st Contact Info) Description 07/21/2024 11:00 EDT Office Visit [facility] Ophthalmology - [address] [phone] Marcial Magaña MD [address] [place] [address] [address] [place] [phone] 07/25/2024 11:00 EDT Phlebotomy Only [facility] Hematology & Oncology - [address] [phone] Blood Doctor, [facility] Hem Onc 07/25/2024 11:45 EDT Office Visit [facility] Hematology & Oncology [address] [phone] Abebe Ralph MD [address] [place] [address], Level [address] [place] [phone] 07/25/2024 12:30 EDT Appointment [facility] Hematology & Oncology [address] [phone] 01/03/2025 16:20 EDT Appointment [facility] Breast Imaging Mammography - [address] [phone] Scheduled Orders Name Type Priority Associated Diagnoses Orde r Schedule EYE PHOTOGRAPHY (FUNDUS) Ophthalmology Routine Intermediate stage nonexudative age-related macular degeneration of both eyes Ordered: 08/12/2018 FLUORESCEIN ANGIOGRAPHY Ophthalmology Routine Intermediate stage nonexudative age-related macular degeneration of both eyes Ordered: 08/12/2018 documented as of this encounter Visit Diagnoses Diagnosis Intermediate stage nonexudative age-related macular degeneration of both eyes- Primary Nuclear sclerosis of both eyes Encounter for screening mammogram for malignant neoplasm of breast Other screening mammogram documented in this encounter Eye Exam Visual Acuity (Snellen - Linear) Right eye Left eye Dist sc 20/30 20/30 Dist ph sc 20/25 +2 20/20 Tonometry (Applanation, 13:15) Right eye Left eye Pressure 16 13 Pupils Pupils Light APD Right eye PERRL 4 None Left eye PERRL 4 None Visual Colmenares (Counting fingers) Right eye Left eye Full Full Extraocular Movement Right eye Left eye Full, Ortho Full, Ortho Neuro/Psych Oriented x3: Yes Mood/Affect: Normal Dilation Both eyes: 1.0% Mydriacyl, 2 .5% Phenylephrine @ 13:15 Color Right eye Left eye Ishihara 03/04 03/04 Slit Lamp Exam Right eye Left eye [...] lar ge drusen, PED inferior to fovea intermediate and large drusen Vessels Normal Normal Periphery Attached without predisposing le sions Attached without predisposing lesions Care Teams Manager Code Relationship Specialty Start Date End Date Skye Hernandez [address] [place] [address] PCP - General 08/11/18 01/02/22 documented as of this encounter
--- OUTSIDE RECORDS SUMMARY | 2024-04-19 08:15 | XMS_ITS | Encounter Summary ---
Author Organization [facility] Address [address] [place] [address] Care Team Providers Care Matcher [employer]ather [employer] Name Role Phone Unavailable Primary Care Provider Unavailabl e Encounter Details Date Type Department Care Team (Latest Contact Info) Description 07/09/2007 13:08 EDT Hospital Encounter [address] [address] Ad Mcdonald MD [address] [phone] Discharge Disposition: Auto Discharge Social History Tobacco Use Types Packs/Day Years Used Date Smoking Tobacco: Never Assessed Comments Unknown Sex and Gender Information Value Date Recorded Sex Assigned at Female 09/10/2021 20:11 EDT Legal Sex Female 18:22 EST Gender Identity Female 02/23/2020 15:23 EST Sexual Orientation Straight 09/10/2021 20 :11 EDT documented as of this encounter Discharge Disposition Disposition Code Departure Means Destination Auto Discharge documented in this encounter Plan of Treatment Upcoming Encounters Date Type Department Care Team (Late st Contact Info) Description 07/21/2024 11:00 EDT Office Visit [facility] Ophthalmology [address] [phone] Marcial Magaña MD [address] [facility] [address] [place] [phone] 07/25/2024 11:00 EDT Phlebotomy Only [facility] Hematology & Oncology [address] [phone] Blood Doctor, [facility] Hem Onc 07/25/2024 11:45 EDT Office Visit [facility] Hematology & Oncology [address] [phone] Abebe Ralph MD [address] [place] [address] [address] [place] [phone] 07/25/2024 12:30 EDT Appointment [facility] Hematology & Oncology [address] [phone] 01/03/2025 16:20 EDT Appointment [facility] Breast Imaging Mammography - [address] [phone] documented as of this encounter Visit Diagnoses Not on filedocumented in this encounter
--- OUTSIDE RECORDS SUMMARY | 2024-04-19 08:15 | XMS_ITS | Clinical Summary ---
Author Organization [facility] Address [facility] [place] [address] Care Team Providers Care Kohinoor Operator Name Role Phone Unknown Primary Care Provider Unavailabl e Social History Tobacco Use Types Packs/Day Years Used Date Smoking Tobacco: Never Assessed Sex and Gender Information Value Date Recorded Sex Assigned at Not on file Gender Identity Not on file Sexual Orientation Not on file Plan of Treatment Health Maintenance Due Date Last Done Comments CT Colonography 1948 Colonoscopy 1948 Colorectal Cancer Screening 1948 FIT DNA 1948 FIT 1948 Sigmoidoscopy (10 year) with FIT yearly 1948 Sigmoidoscopy 1948 Hepatitis C Screening 1966 Tetanus/Diphtheria/Pertussis Vaccines (1 - Tdap) 10/21 Pneumoccocal Vaccine: 50+ (1 of 1 - PCV) 1998 Zoster vaccine (1 of 2) 1998 Advance Directive 10/22/2003 Bone Density Scan 2013 RSV Vaccine (1 - 1-dose 75+ series) 10/22/2023 Covid-19 Vaccine ( - 2023-25 season) 2023 Influenza (Flu) vaccine (1 o f 1 - Influenza standard series) 11/22/2023 Care Teams Kohinoor Operator Relationship Specialty Start Date End Date Unknown None PCP - General 03/03/18
--- OUTSIDE RECORDS SUMMARY | 2024-04-19 08:15 | XMS_ITS | Encounter Summary ---
Author Organization [facility] Address [address] [place] [address] Care Team Providers Care Supply Tech Name Role Phone Rustam Alberto MD Primary Care Provider Unav ailable Encounter Details Date Type Department Care Team (Late st Contact Info) Description 06/08/2007 Before PRISM Converted Visit (Maple) [facility] - Maple conversion [address] [place] [address] Lora Lou MD [address] [place] [phone] Social History Tobacco Use Types Packs/Day Years [...] Description 07/21/2024 11:00 EDT Office Visit [facility] Ophthalmology - [facility] [address] [place], [place] [address] Marcial Magaña MD [address] [facility], [address] [place] [phone] 07/25/2024 11:00 EDT Phlebotomy Only [facility] Hematology & Oncology - [address] [phone] Blood Doctor, [facility] Hem Onc 07/25/2024 11:45 EDT Office Visit [facility] Hematology & Oncology - [address] [phone] Abebe Ralph MD [address] [facility], [address] [place] [phone] 07/25/2024 12:30 EDT Appointment [facility] Hematology & Oncology - [address] [phone] 01/03/2025 16:20 EDT Appointment [facility] Breast Imaging Mammography - [address] [phone] documented as of this encounter Visit Diagnoses Diagnosis Encounter for screening mammogram for malignant neoplasm of breast Other screening mammogram * Evaluation - Lora Lou MD - 12/14/2008 0113 EDT DIVISION OF DERMATOLOGY [place] NEW PATIENT EVALUATION - 06/08/2007 CHIEF COMPLAINT Skin lesions. 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 She has noticed quite a few brown bumps, which have arisen on her trunk and extremities within the past several years. She saw Ms. Garcia recently and it was recommended that she have these evaluated.None are symptomatic, but some seem to be thickening slightly. She also has noticed a new bump on her left lower eyelid. This has also probably arisen within the past year. It has not bled or ulcerated. To date, she has no known history of skin cancer, but she does have a significant history of sunexposure having been outdoors much during childhood and having sustained lots of domínguez and tans. The re is no significant family history of skin cancer or melanoma. Her health is otherwise good. MEDICATIONS She takes, Tylenol, p.r.n. ibuprofen, vitamin E and calcium. No other medications regularly. ALLERGIES None known. REVIEW OF SYSTEMS A complete review of systems, as documented on the accompanying dermatology intake sheet is entirely negative. MEDICAL AND SURGICAL HISTORY Unremarkable. 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 She does not smoke and only occasionally drinks alcohol. FAMILY HISTORY As above, is noncontributory. OBJECTIVE Well-appearing pleasant woman with skin of medium to dark complexion and brown hair. A complete skin exam was undertaken including the face, neck, chest, back, abdomen, buttocks, upper and lower extremities. Eyelids were also examined. On the left lower eyelid there is a 2-mm firm, flesh-colored papule with questionable overlying erosion. There are multiple flat to flaky to waxy to more verrucouskeratoses scattered across the trunk and extremities and these include all lesions noted by the patient; one on the inner left thigh has hemorrhage associated with recent cryotherapy. No suspicious lesions are noted on the remainder of complete skin examination. ASSESSMENT 1. Multiple seborrheic keratoses. 2. Papule of unclear etiology left lower eyelid, differential diagnosis includes basal cell carcinoma, cyst or nevus. PLAN 1. Patient was reassured about benign appearance of seborrheic keratoses. All the different morphologies were discussed and the fact that removal of most is considered cosmetic was explained. 2. Will refer patient to Dr. Ad Mcdonald at [facility] Ophthalmology for evaluation of the eyelid lesion. 3. Sun protection and regular self-skin exams recommended. 4. Follow up. Signed by Lora Lou MD 07/02/2007 17:43 Lora Lou MD - Lora Lou MD - [facility] Job ID: [id number] Doc ID: [id number] cc: KALEY Fisher [facility] documented in this encounter Care Teams Supply Tech Relationship Specialty Start Date End Date Rustam Alberto MD PCP - General 09/06/08 06/25/10 documented as of this encounter
--- OUTSIDE RECORDS SUMMARY | 2024-04-19 08:15 | XMS_ITS | Encounter Summary ---
Author Organization [facility] Address [facility] [place] [address] Care Team Providers Care Beam Saw Operator Name Role Phone Unknown Primary Care Provider Unavailabl e Encounter Details Date Type Department Care Team (Late st Contact Info) Description 04/10/2021 Ancillary Procedure Radiology Library at [facility] [place] [phone] Dez Escalante MD [facility] ORTHOPAEDIC [place] [address] Social History Tobacco Use Types Packs/Day Years Used Date Smoking Tobacco: Never Assessed Sex and Gender Information Value Date Recorded Sex Assigned at Not on file Gender Identity Not on file Sexual Orientation Not on file documented as of this encounter Plan of Treatment Not on file documented as of this encounter Procedures Procedure Name Priority Date/Time Associated Diagnosis Comments FILM LIBRARY STORAGE ONLY MR KNEE Routine 04/10/2021 12:00 AM EST documented in this encounter Results * Film Library- Storage Only MR Knee (04/10/2021 12:00 AM EST) Narrative RAD - 08/12/2021 11:16 AM EDT This exam is auto-finalizing. It's purpose is for storage only. Dez Escalante MD IMG FILM LIBRARY ORD ERABLES [place], [place] documented in this encounter Visit Diagnoses Not on filedocumented in this encounter Care Teams Beam Saw Operator Relationship Specialty Start Date End Date Unknown None PCP - General 03/03/18 documented as of this encounter
--- OUTSIDE RECORDS SUMMARY | 2024-04-19 08:15 | XMS_ITS | Encounter Summary ---
Author Organization [facility] Address [address] [place] [address] Care Team Providers Care Rug Sample Beveler Name Role Phone Rustam Alberto MD Primary Care Provider Unav ailable Encounter Details Date Type Department Care Team (Late st Contact Info) Description 09/09/2007 Before PRISM Converted Visit (Maple) [facility] - Maple conversion [address] [place] [address] Chris Nuno MD [address] [place] [address] [place] [phone] Social History Tobacco Use Types Packs/Day Years Used Date Smoking Tobacco: Never Assessed Comments Unknown Sex and Gender Information Value Date Recorded Sex Assigned at Female 09/10/2021 20:11 EDT Legal Sex Female 18:22 EST Gender Identity Female 02/23/2020 15:23 EST Sexual Orientation Straight 09/10/2021 20 :11 EDT documented as of this encounter Progress Notes * Chris Nuno MD - 12/15/2008 0207 EDT DIVISION OF DERMATOLOGY PROGRESS/FOLLOWUP NOTE - 09/09/2007 Lora Lou M.D. [facility]-Dermatology ACC, [address] [place] [address] Dear Xiao, I had the pleasure of seeing your patient, Jeffery Garvey on 09/09/2007 for treatment of a basal cell carcinoma of the left lower lid margin measuring 1.7 mm x 1.7 mm. As you know, the patient is a 56-year-old woman who was seen in consultation for the first time today for same-day consultation and surgery. The risks and benefits of Mohs surgery and other therapeutic options were once again discussed with the patient, and formal consent for surgery was obtained. A repeat examination revealed no significant changes from the consultation examination. The vital signs were obtained and documented in the patients operative record. At surgery, the tumor was excised in one stage of Mohs surgery, leading to a defect measuring 3 mm by 2.5 mm and extending to tarsus. A detailed discussion about the various options for repair led to the joint decision to refer the patient for same day operative reconstruction with Dr. Ad Mcdonald. The patient was discharged from the operative suite to home in good condition. She was carefully instructed in postoperative woundcare both verbally and in writing. The patient will see me in followup in one year for followup. Thank you for your confidence in me and for allowing me to work with you on the care of this patient. Please feel free to contact me with any questions. Sincerely, Signed by Chris Nuno MD 09/17/2007 10:17 Chris Nuno MD - MD Nurys - BRANDON Job ID: [id number] Doc ID: [id number] cc: MD Greta Steel FNP Kathryn Schwarzenberger, MD Manoj Thakker, MD - brandon Job ID: [id number] Doc ID: [id number] cc: MD Greta Steel FNP Kathryn Schwarzenberger, MD Manoj Thakker, MD * Chris Nuno MD - 12/15/2008 0207 EDT DIVISION OF DERMATOLOGY PROGRESS/FOLLOWUP NOTE - 09/09/2007 Lora Lou M.D. [facility]-Dermatology [facility], [place] [address] Dear Ixao, I had the pleasure of seeing your patient, Jeffery Garvey, in consultation on 09/09/2007. As you know, she is a 56-year-old woman with a basal cell carcinoma of the left lower lid. The patient notes that this lesion has been present for about a year, and reports no current symptoms. The patient's past medical history is remarkable for generally excellent health. The patient's risk factors for skin cancer include mainly a long history of outdoor sun exposure. Complete physical examination of the affected area in the office today revealed a 1.7 mm x 1.7 mm indented biopsy site located on the left lower lid. Careful examination of the draining lymph nodes revealed no suspicious adenopathy. Mrs. Garvey Tessa discussed the meaning of the diagnosis of skin cancer and the options for treatment, including curettage and electrodesiccation, radiation therapy, conventional excision, and excision by Mohs micrographic surgery. Due to the need for a high cure rate and optimum functional and aesthetic outcome, I feel that Mohs surgery is indicated. The risks of Mohs surgery and potential r econstructive surgery, including but not limited to, bleeding, scarring, infection, recurrence, injury to functionally or cosmetically important nerve structures and an unsatisfactory cosmetic result, were reviewed. The patient was given an opportunity to ask questions and I believe that all of herquestions were answered satisfactorily. In addition, the patient was provided with written materialthat describes the Mohs procedure and related matters. The patient's medications and allergies have been documented in the chart for future reference at the time of surgery. The patient has no absolute contraindications to outpatient surgery under local anesthesia and understands the importance of following our instructions regarding antiplatelet therapy prior to surgery. Mrs. Garvey understands that following Mohs surgery an operative repair may be required and that this repair can be performed either by me or by a plastic surgeon or head and neck surgeon. We have jointly planned to refer the patient as previously arranged to Dr. Ad Mdconald for operative re construction. She understands that following reconstruction, if performed, manymonths may elapse before a decision can be made about the final cosmetic result, and that, in some cases, a revision maybe necessary to optimize the outcome. I explained to Mrs. Garvey that in addition to the riskof recurrence from her skin cancer, she has an increased risk of developing additional new skin cancers elsewhere. For that reason, followup with you, according to your routine, after surgery, will be imperative. I will follow the patient throughout the postoperative period and then, of course, return her completely to your care for longitudinal management. The patient has been scheduled to undergo surgery today for same day consultation and surgery. We will follow up with her in one year following her surgery today. Thank you for your confidence in me and for allowing me to work with you on the care of your patient. Please feel free to contact me with any questions you have about the plan of action that we have established. Sincerely, Signed by Chris Nuno MD 09/17/2007 10:17 Chris Nuno MD - MD Nurys - BRANDON Job ID: [id number] Doc ID: [id number] cc: MD Greta Steel FNP Kathryn Schwarzenberger, MD Manoj Thakker, MD - [facility] Job ID: [id number] Doc ID: [id number] cc: MD Greta Steel FNP Kathryn Schwarzenberger, MD Manoj Thakker, MD documented in this encounter Procedure Notes * Chris Nuno MD - 12/15/2008 0207 EDT DIVISION OF DERMATOLOGY PROCEDURE REPORT SERVICE DATE: 09/09/2007 SURGEON: Chris Nuno M.D. FITNESS/WELLNESS DIRECTOR: Samanta Alonso PA-C PREOPERATIVE DIAGNOSIS Basal cell carcinoma, left lower lid PREOPERATIVE PROCEDURE Mohs microscopically-controlled fresh tissue excision INDICATIONS The patient is a 56-year-old woman who presents with a basal cell carcinoma of the left lower lid measuring 1.7 mm x 1.7 mm. Because of the histologic and clinical nature of the lesion, as well as its location, the need to achieve the highest cure rate while providing maximum tissue preservation warranted tumor extirpation via microscopically-controlled excision using the Mohs fresh tissue technique. Alternate therapeutic options were discussed on several occasions prior to surgery. After informed consent was obtained and appropriate instruction was provided, the patient underwent tumor extirpation by the Mohs fresh tissue technique as follows: PROCEDURE Stage 1 The patient was brought to the operative suite and was placed in the recumbent position. The lesionwas identified and was prepped with Betadine. The area was infiltrated with lidocaine/epinephrine to achieve complete anesthesia and to augment hemostasis. An initial beveled excision was performed to tarsus with a #15 scalpel blade and with Gradle scissors as indicated. A hash was created in the specimen and within the adjacent epidermis for marking purposes. The Mohs specimen was excised in a sharp manner, and carefully placed in proper orientation on the surgical tray. Hemostasis of the operative wound was obtained with careful spot electrocoagulation. A sterile nonadherent dressing was applied to the operative wound. The Mohs tissue specimen was carefully transferred to the lab where the tissue was divided into twosections. These sections were mapped, color coded at their margins, and handed personally to the utility technician for frozen sectioning. The tissue was embedded so that the deep and surface margins lay in the same plane, and sections were made through this plane. All specimens were then evaluated histologically by me and microscopic tumor was found to persist in zero sections of the first stage. With the patient clear of microscopic tumor, surgery was considered complete. Following surgery thedefect measured 3 mm x 2.5 mm. FINAL DIAGNOSIS Basal cell carcinoma, left lower lid FINAL PROCEDURE Mohs microscopically-controlled fresh tissue excision CONDITION Good OPERATIVE TIME 45 minutes per stage COMPLICATIONS None Signed by Chris Nuno MD 09/17/2007 10:17 Chris Nuno MD - MD Nurys - BRANDON Job ID: [id number] Doc ID: [id number] cc: - Chris Nuno MD - brandon Job ID: [id number] Doc ID: [id number] cc: documented in this encounter Plan of Treatment Upcoming Encounters Date Type Department Care Team (Late st Contact Info) Description 07/21/2024 11:00 EDT Office Visit [facility] Ophthalmology - [address] [phone] Marcial Magaña MD [address] [place] [address], [facility] [address] [place] [phone] 07/25/2024 11:00 EDT Phlebotomy Only [facility] Hematology & Oncology [address] [phone] Blood Doctor, [facility] Hem Onc 07/25/2024 11:45 EDT Office Visit [facility] Hematology & Oncology [address] [phone] Abebe Ralph MD [address] [place] [address], [facility] 2 [place] [phone] 07/25/2024 12:30 EDT Appointment [facility] Hematology & Oncology [address] [phone] 01/03/2025 16:20 EDT Appointment [facility] Breast Imaging Mammography - [address] [phone] documented as of this encounter Visit Diagnoses Not on filedocumented in this encounter Care Teams Rug Sample Beveler Relationship Specialty Start Date End Date Rustam Alberto MD PCP - General 09/06/08 06/25/10 documented as of this encounter
--- OUTSIDE RECORDS SUMMARY | 2024-04-19 08:15 | XMS_ITS | Encounter Summary ---
Author Organization [facility] Address [address] [place] [address] Care Team Providers Care President [employer] Name Role Phone Unavailable Primary Care Provider Unavailabl e Encounter Details Date Type Department Care Team (Late st Contact Info) Description 09/09/2007 8:50 EDT Hospital Encounter [facility] [address] [place], [place] [phone] Chris Nuno MD [address] [place] [address] [place] [phone] Social History Tobacco Use Types Packs/Day [...] 07/21/2024 11:00 EDT Office Visit [facility] Ophthalmology - [address] [phone] Marcial Magaña MD [address] [place] [address] 5 [place] [phone] 07/25/2024 11:00 EDT Phlebotomy Only [facility] Hematology & Oncology [address] [phone] Blood Doctor, [facility] Hem Onc 07/25/2024 11:45 EDT Office Visit [facility] Hematology & Oncology [address] [phone] Abebe Ralph MD [address] [place] [address], [facility] 2 [place] [phone] 07/25/2024 12:30 EDT Appointment [facility] Hematology & Oncology - [address] [phone] 01/03/2025 16:20 EDT Appointment [facility] Breast Imaging Mammography - [address] [phone] documented as of this encounter Visit Diagnoses Not on filedocumented in this encounter
--- OUTSIDE RECORDS SUMMARY | 2024-04-19 08:15 | XMS_ITS | Encounter Summary ---
Author Organization [facility] Address [facility] [place] [address] Care Team Providers Care Pad Machine Operator Name Role Phone Unknown Primary Care Provider Unavailabl e Encounter Details Date Type Department Care Team (Late st Contact Info) Description 05/13/2021 Ancillary Procedure Radiology Library at [facility] [place] [phone] Dez Escalante MD [facility] ORTHOPAEDIC [place] [address] Social History Tobacco Use Types Packs/Day Years [...] Associated Diagnosis Comments FILM LIBRARY STORAGE ONLY DX KNEE Routine 05/13/2021 12:00 AM EST documented in this encounter Results * Film Library- Storage Only DX Knee (05/13/2021 12:00 AM EST) Narrative RAD - 08/12/2021 11:18 AM EDT This exam is auto-finalizing. It's purpose is for storage only. Dez Escalante MD IMG FILM LIBRARY ORD ERABLES [place], [place] documented in this encounter Visit Diagnoses Not on filedocumented in this encounter Care Teams Pad Machine Operator Relationship Specialty Start Date End Date Unknown None PCP - General 03/03/18 documented as of this encounter
--- OUTSIDE RECORDS SUMMARY | 2024-04-19 08:15 | XMS_ITS | Encounter Summary ---
Author Organization [facility] Address [address] [place] [address] Care Team Providers Care Laborer Demolition Name Role Phone Rustam Alberto MD Primary Care Provider Unav ailable Encounter Details Date Type Department Care Team (Late st Contact Info) Description 07/09/2007 Results Only [facility] - Maple conversion [address] [place] [address] Landry Mcdonald MD [address] [phone] Social History Tobacco Use Types Packs/Day Years [...] Visit [facility] Ophthalmology - [facility] [address] [place], [place] 18[address] Marcial Magaña MD 111 [facility], Level 5 [phone] 07/25/2024 11:00 EDT Phlebotomy Only [facility] Hematology & Oncology [address] [phone] Blood Doctor, [facility] Hem Onc 07/25/2024 11:45 EDT Office Visit [facility] Hematology & Oncology [address] [phone] Abebe Ralph MD 111 [facility] Level 2 [phone] 07/25/2024 12:30 EDT Appointment [facility] Hematology & Oncology [address] [phone] 01/03/2025 16:20 EDT Appointment [facility] Breast Imaging Mammography - [address] [phone] documented as of this encounter Procedures Procedure Name Priority Date/Time Associated Diagnosis Comments SURGICAL PATHOLOGY Routine 07/09/2007 0:00 EDT documented in this encounter Results * SURGICAL PATHOLOGY (07/09/2007 0:00 EDT) Pathology Report: SURGICAL PATHOLOGY REPORT Reports generated via electronic interface contain original data; however they are lacking the format of the original report. Caution should be taken when reading/interpreti ng unformatted reports. Name: ? EVENSLENNYJEFFERY ? Accession #: ? [id number] ? : ? 1950 (Age: 56) ??F ? Collect Date: ? 07/09/2007 ? Location: ? [facility] ? Receive Date: ? 07/09/2007 ? Provider: LANDRY MCDONALD MD Copy to: ? Final Pathologic Diagnosis: ? Skin of eyelid, left lower, shave biopsy: 1. ?Basal cell carcinoma, nodular type. ? - Basal cell carcinoma extends to base of shave biopsy specimen. Microscopic Description: ? Irregularly shaped islands of atypical basal cells infiltrate the dermis. The basal cells have scant cytoplasm and round dark nuclei. ??Mitotic figures and apoptotic bodies are evident. ??The nuclei at the periphery of the islands have a palisaded arrangement. ??The islands are associated with a fibromyxoid stroma and there is cleft formation between some of the islands and stroma. ??(Dr. Gimenez)/[facility] Document reviewed and electronically signed by: Tarah Gimenez MD Report ??Date: 07/13/2007 15:20 By the signature above, the attending physician certifies that he/she has personally conducted a gross and/or microscopic examination of the described specimens and rendered or confirmed the above diagnosis. Specimen(s) Received: ? Left lower lid lesion Clinical History: ? 1.7 x 1.7 mm LLL lesion, R/O BCCa, SCCa. ??Clinical diagnosis code: ??238.2 Gross Description: ? Received in formalin labelled Brightenback and left lower lid is an oval, 0.1 x 0.1 by less than 0.1 cm, pale esteves skin shave. ??Submitted intact in one cassette. ??(Missy Nelson)/lgk End of Report ANDREWS SHANKS 07/09/2007 07/09/2007 17: 37 EDT us Landry Mcdonald MD PATHOLOGY ORDERABLES Final Re sult [facility] [address] [place] [address] documented in this encounter Visit Diagnoses Not on filedocumented in this encounter Care Teams Laborer Demolition Relationship Specialty Start Date End Date Rustam Alberto MD PCP - General 09/06/08 06/25/10 documented as of this encounter
--- OUTSIDE RECORDS SUMMARY | 2024-04-19 08:15 | XMS_ITS | Encounter Summary ---
Author Organization [facility] Address [address] [place] [address] Care Team Providers Care Intake Rn Name Role Phone Rustam Alberto MD Primary Care Provider Unav ailable Encounter Details Date Type Department Care Team (Late st Contact Info) Description 07/09/2007 Before PRISM Converted Visit (Maple) [facility] - Maple conversion [address] [place] [address] Ad Mcdonald MD [address] [phone] Social History Tobacco Use Types Packs/Day Years Used Date Smoking Tobacco: Never Assessed Comments Unknown Sex and Gender Information Value Date Recorded Sex Assigned at Female 09/10/2021 20:11 EDT Legal Sex Female 18:22 EST Gender Identity Female 02/23/2020 15:23 EST Sexual Orientation Straight 09/10/2021 20 :11 EDT documented as of this encounter Consult Notes * Ad Mcdonald MD - 12/15/2008 0137 EDT DIVISION OF OPHTHALMOLOGY [facility] CONSULTATION - 07/09/2007 Lora Lou MD [facility]-Dermatology ACC, [address] [place] [phone] Lou: I had the pleasure of seeing Jeffery Garvey, who, as you know, is a 56-year-old woman with a history of a left lower lid lesion for the past few months. The patient is unsure exactly how long the lesion has been present, or if it has been increasing in size over time. On examination, there was a 1.7 mm x 1.7 mm nodular lesionwith central ulceration and madarosis at the medial third of the left lower lid lash line. There was evidence of telangiectasias on the lesion. There was no evidence of preauricular or submandibular lymphadenopathy. In sum, Jeffery Garvey has a left lower lid lesion suspicious of a basal cell carcinoma. A biopsy was performed today. Thank you very much for allowing me to participate in the care of this patient. If you have any questions or concerns, please do not hesitate to contact me. Sincerely, Signed by Ad Mcdonald MD 07/14/2007 17:42 Ad Mcdonald MD - Ad Mcdonald MD - GLT Job ID: [id number] Doc ID: [id number] cc: Lora Lou MD documented in this encounter Plan of Treatment Upcoming Encounters Date Type Department Care Team (Late st Contact Info) Description 07/21/2024 11:00 EDT Office Visit [facility] Ophthalmology [address] [phone] Marcial Magaña MD [address] [place] [address], Level [address] [place] [phone] 07/25/2024 11:00 EDT Phlebotomy Only [facility] Hematology & Oncology [address] [address] Blood Doctor, [facility] Hem Onc 07/25/2024 11:45 EDT Office Visit [facility] Hematology & Oncology [address] [phone] Abebe Ralph MD 111 [facility], Level [address] [place] [phone] 07/25/2024 12:30 EDT Appointment [facility] Hematology & Oncology - [address] [phone] 01/03/2025 16:20 EDT Appointment [facility] Breast Imaging Mammography - [address] [phone] documented as of this encounter Visit Diagnoses Not on filedocumented in this encounter Care Teams Intake Rn Relationship Specialty Start Date End Date Rustam Alberto MD PCP - General 09/06/08 06/25/10 documented as of this encounter
--- OUTSIDE RECORDS SUMMARY | 2024-04-19 08:15 | XMS_ITS | Encounter Summary ---
Author Organization [facility] Address [address] [place] [address] Care Team Providers Care Piano Case And Bench Assembler Name Role Phone Rustam Alberto MD Primary Care Provider Unav ailable Encounter Details Date Type Department Care Team (Late st Contact Info) Description 11/13/1999 Results Only [facility] - Maple conversion [address] [place] [id number] Abundio Astudillo MD [address] [place] [address] DR REN [address] [place] [phone] Social History Tobacco Use Types Packs/Day Years [...] EDT Office Visit [facility] Ophthalmology - [address] [phone] Marcial Magaña MD 111 [facility], [address] [place] [phone] 07/25/2024 11:00 EDT Phlebotomy Only [facility] Hematology & Oncology [address] [phone] Blood Doctor, [facility] Hem Onc 07/25/2024 11:45 EDT Office Visit [facility] Hematology & Oncology [address] [phone] Abebe Ralph MD 111 [facility] Level [address] [place] [phone] 07/25/2024 12:30 EDT Appointment [facility] Hematology & Oncology [address] [phone] 01/03/2025 16:20 EDT Appointment [facility] Breast Imaging Mammography - [address] [phone] documented as of this encounter Procedures Procedure Name Priority Date/Time Associated Diagnosis Comments CYTOPATHOLOGY Routine 11/13/1999 0:00 EDT documented in this encounter Results * CYTOPATHOLOGY (11/13/1999 0:00 EDT) Pathology Report: CYTOPATHOLOGY REPORT Reports generated via electronic interface contain original data; however they are lacking the format of the original report. Caution should be taken when reading/interpreti ng unformatted reports. Name: ? BEKA JEFFERY ? Accession #: ? [id number] : ? 1950 (Age: 49) ??F ?Collect Date: ? 11/13/1999 Location: ? [facility] ? Receive Date: ? 11/15/1999 Provider: ?ABUNDIO ASTUDILLO MD Copy to: ? Specimen/Source: ?Conventional Pap Test, Cervix/Endocervix Last Menstrual Period: ? 10/26/99 Other: ? Additional clinical information: Normal periods ? SPECIMEN ADEQUACY ? Satisfactory for evaluation but limited by obscuring inflammation. GENERAL CATEGORIZATION ? Within Normal Limits ? Document reviewed and electronically signed by: ? CHING Daniel(ASCP) ? Report Date: ??11/18/1999 14:07 End of Report ANDREWS SHANKS 11/13/1999 11/15/1999 us Abundio Astudillo MD PATHOLOGY ORDERABLES Final Resu lt Performing Organization Address City/State[facility] Phone Number ANDREWS SHAN[facility] [address] [place] [address] documented in this encounter Visit Diagnoses Not on filedocumented in this encounter Care Teams Piano Case And Bench Assembler Relationship Specialty Start Date End Date Rustam Alberto MD PCP - General 09/06/08 06/25/10 documented as of this encounter
[2024-04-19 16:20] LABS: Anion Gap 7.4 mmol/L (3-11); BUN 21 mg/dL (7-18); CO2 27.6 mmol/L (21.0-32.0); CREATININE 0.9 mg/dL (0.55-1.02); Calcium 9.8 mg/dL (8.5-10.1); Calculated LDL 91 mg/dL (<100); Chloride 106 mmol/L (98-107); Cholesterol 171 mg/dL (<200); Estimated GFR 66.67 (mL/min/1.73m2); Glucose 100 mg/dL (74-106); HDL Cholesterol 67 mg/dL (40-60); Potassium 4.7 mmol/L (3.5-5.1); Sodium 141 mmol/L (136-145); Triglyceride 69 mg/dL (<150)
== END 2024-04-19 07:58 | disposition home or self-care (01) ==
LOC: NCHCN 07:57
PROVIDERS: PCP Internal Medicine; Visit Provider Family Medicine
DX: E78.5 Hyperlipidemia, unspecified (principal); R03.0 Elevated blood-pressure reading, without diagnosis of hypertension
CPT/HCPCS: 80048; 80061